=== PATIENT | female | born 1950 | race Caucasian/White ===

== ENCOUNTER 2017-05-22 13:19 | Inpatient (IN) | payer MEDICARE, MEDICAID, SELFPAY ==
[2017-05-22] VITALS (7 sets, daily range): BP systolic 113–118; BP diastolic 50–66; PULSE 64–98; RESP 16–20; TEMP 36.4–36.7; O2SAT 85–100; BMI 21.4; BMI 21.3
--- NOTE | 2017-05-22 13:52 | XR_ITS ---
XR chest 2V HISTORY: ITS.REASON: chest pain and right rib pain ORDERING PHYSICIAN: Saturnino Farmer MD PATIENT AGE: 67 years COMPARISON: 03/30/2016 FINDINGS: The heart size is unremarkable. There is diffuse coarsening of the bronchovascular markings which appears more prominent on today's exam and somewhat may be due to technique with skin fold artifact. Previously described patchy density in the right upper lobe is unchanged. There are emphysematous changes there is a small right pleural effusion. 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
--- NOTE | 2017-05-22 13:56 | XR_ITS ---
XR hip BI w PEL1V CLINICAL INDICATION: ITS.REASON: bilateral hip pain ORDERING PHYSICIAN: Saturnino Farmer MD PATIENT AGE: 67 years COMPARISON: None FINDINGS: No acute fracture or dislocation. Subcortical cystic changes are present in the right acetabular roof and there is slight decrease in joint space medially on both sides with minimal osteophyte formation along the left hip inferiorly. No fracture or dislocation. No lytic or blastic change. IMPRESSION: Mild osteoarthritis of the hips as described above
[2017-05-22 14:51] LABS: Basophils % 0.1 % (0.1-2.0); Eosinophils % 0.4 % (0.1-12.0); Hemoglobin 17.8 g/dL (12.2-16.2); Lymphocytes # 0.7 K/mm3 (0.7-4.5); Lymphocytes % 6.2 K/mm3 (10-50); Mean Corpuscular Hemoglobin 28.3 pg (27.0-31.2); Mean Corpuscular Volume 97.4 fl (81-99); Mean Platelet Volume 9.5 fl (7.4-10.4); Monocytes # 0.8 K/mm3 (0.1-1.0); Monocytes % 7.3 % (1.7-9.3); Neutrophils # 9.5 K/mm3 (1.8-7.8); Neutrophils % 86.1 % (37.0-80.0); Platelet Count 168 K/mm3 (142-424); Red Blood Count 6.28 M/mm3 (4.20-5.40); Red Cell Distribution Width 15.4 % (11.5-17.5); White Blood Count 11.1 K/mm3 (4.8-10.8)
[2017-05-22 14:52] LABS: Hematocrit 61.2 % (37.0-47.0)
[2017-05-22 14:53] LABS: MANUAL DIFFERENTIAL MANUAL DIFFERENTIAL (MANUAL DIFF)
--- NOTE | 2017-05-22 15:08 | HMH.HP ---
*Admission Date: 05/22/17 *Chief complaint: Frequent falls, diarrhea *History of present illness: 67-year-old white female with long history of emphysema, nebulizer and oxygen requiring, who is still a heavy tobacco user. She also has a long history of social anxiety disorder, delusional thinking and paranoia with some mood disorder/bipolar features. She has been extremely socially isolated since the of her , and came to my office today in extremely poor condition, dehydrated, covered in her own stool, covered in animal hair and very weak. She reports that she has fallen several times, reported right-sided rib pain, bilateral hip pain. She was found to be dehydrated. Her lungs were actually fairly clear. However she is admitted to hospital for further diagnostic testing and x-rays. [facility] History Medical History: Reports:: Diabetes Mellitus Type 2, Hyperlipidemia, Hypertension Other Medical History: Reports: Arthritis Other Surgeries: Yes: Colonoscopy - *Social History Smoking Status: Current every day smoker Tobacco Type: cigarettes Alcohol Intake: never Occupational Status: retired Housing: house Household Members: none - Psychiatric History Expresses thoughts of harming self/others: None Suicide Plan Description: No Plan Pschychiatric History:: Reports:: Anxiety, Bipolar Disorder *Family Hx:: Unable to obtain Review of Systems - Review of Systems Review of systems:: unable to obtain, other, pertinent systems reviewed and negative unless documented below - Constitutional Reports anorexia, Reports body ache(s), Reports fatigue - Eyes Reports blurry vision - ENT Reports poor balance - *Cardiovascular Reports shortness of breath, Denies chest pain at rest, Denies chest pain with activity - *Gastrointestinal Reports abdominal pain, Reports incontinent of stools, Reports loose stools - *Musculoskeletal Reports abnormal walking, Reports joint pain, Reports limited joint movement - *Neurologic Reports abnormal walking, Reports unsteadiness, Reports frequent falls Meds Home Medications Medication Instructions Recorded Confirmed Type Albuterol Sulfate [Albuterol 2.5 mg IH QID PRN 05/22/17 05/22/17 History 0.083% 2.5mg/3mL neb] Aspirin [Aspirin 81mg EC Tab] 81 mg PO DAILY 05/22/17 05/22/17 History Atorvastatin Calcium [Atorvastatin 20 mg PO HS 05/22/17 05/22/17 History 20mg Tab] Carvedilol [Carvedilol 6.25mg Tab] 6.25 mg PO BID 05/22/17 05/22/17 History Clopidogrel Bisulfate [Plavix 75mg 75 mg PO DAILY 05/22/17 05/22/17 History Tab] Ipratropium/Albuterol Sulfate 1 puff IH QID 05/22/17 05/22/17 History [Combivent Respimat Inh] Loratadine [Allergy Relief] 10 mg PO DAILY 05/22/17 05/22/17 History Medical Supply, Miscellaneous 1 each IH CONT 05/22/17 05/22/17 History [Oxygen Concentrator] Metformin HCl [Metformin 500mg 1,000 mg PO BID 05/22/17 05/22/17 History Tablet] Nitroglycerin [Nitrostat 0.4mg SL 0.4 mg SL DIRECTED 05/22/17 05/22/17 History Tablet] Potassium Chloride [Pot Chlor 20 40 meq PO DAILY 05/22/17 05/22/17 History mEq Tab] Umeclidinium [place] [Incruse 62.5 mcg IH DAILY 05/22/17 05/22/17 History Ellipta] diazePAM [diazePAM 5mg Tablet] 5 mg PO TID 05/22/17 05/22/17 History metOLazone [metOLazone 2.5mg 2.5 mg PO DAILY 05/22/17 05/22/17 History Tablet] Allergies Allergy/AdvReac Type Severity Reaction Status Date / Time No Known Allergies Allergy Unverified 03/05/17 14:26 Exam Vital signs and Labs for Last 24 Hours: Laboratory Results - last 24 hr 05/22/17 14:18: WBC 11.1 H, RBC 6.28 H, Hgb 17.8 H, Hct 61.2 H*, MCV 97.4, MCH 28.3, MCHC 29.0 L, RDW 15.4, Plt Count 168, MPV 9.5, Neut % (Auto) 86.1 H, Lymph % (Auto) 6.2 L, [place] % (Auto) 7.3, Eos % (Auto) 0.4, Baso % (Auto) 0.1, Neut # (Auto) 9.5 H, Lymph # (Auto) 0.7, [place] # (Auto) 0.8, Eos # (Auto) 0.0, Baso # (Auto) 0.0 Narrative: Patient initially examined
--- NOTE | 2017-05-22 15:11 | P.HP_ITS ---
*Admission Date: 05/22/17 *Chief complaint: Frequent falls, diarrhea *History of present illness: 67-year-old white female with long history of emphysema, nebulizer and oxygen requiring, who is still a heavy tobacco user. She also has a long history of social anxiety disorder, delusional thinking and paranoia with some mood disorder/bipolar features. She has been extremely socially isolated since the of her , and came to my office today in extremely poor condition, dehydrated, covered in her own stool, covered in animal hair and very weak. She reports that she has fallen several times, reported right-sided rib pain, bilateral hip pain. She was found to be dehydrated. Her lungs were actually fairly clear. However she is admitted to hospital for further diagnostic testing and x-rays. [facility] [place] History Medical History: Reports:: Diabetes Mellitus Type 2, Hyperlipidemia, Hypertension Other Medical History: Reports: Arthritis Other Surgeries: Yes: Colonoscopy - *Social History Smoking Status: Current every day smoker Tobacco Type: cigarettes Alcohol Intake: never Occupational Status: retired Housing: house Household Members: none - Psychiatric History Expresses thoughts of harming self/others: None Suicide Plan Description: No Plan Pschychiatric History:: Reports:: Anxiety, Bipolar Disorder *Family Hx:: Unable to obtain Review of Systems - Review of Systems Review of systems:: unable to obtain, other, pertinent systems reviewed and negative unless documented below - Constitutional Reports anorexia, Reports body ache(s), Reports fatigue - Eyes Reports blurry vision - ENT Reports poor balance - *Cardiovascular Reports shortness of breath, Denies chest pain at rest, Denies chest pain with activity - *Gastrointestinal Reports abdominal pain, Reports incontinent of stools, Reports loose stools - *Musculoskeletal Reports abnormal walking, Reports joint pain, Reports limited joint movement - *Neurologic Reports abnormal walking, Reports unsteadiness, Reports frequent falls Meds Home Medications Medication Instructions Recorded Confirmed Type Albuterol Sulfate [Albuterol 2.5 mg IH QID PRN 05/22/17 05/22/17 History 0.083% 2.5mg/3mL neb] Aspirin [Aspirin 81mg EC Tab] 81 mg PO DAILY 05/22/17 05/22/17 History Atorvastatin Calcium [Atorvastatin 20 mg PO HS 05/22/17 05/22/17 History 20mg Tab] Carvedilol [Carvedilol 6.25mg Tab] 6.25 mg PO BID 05/22/17 05/22/17 History Clopidogrel Bisulfate [Plavix 75mg 75 mg PO DAILY 05/22/17 05/22/17 History Tab] Ipratropium/Albuterol Sulfate 1 puff IH QID 05/22/17 05/22/17 History [Combivent Respimat Inh] Loratadine [Allergy Relief] 10 mg PO DAILY 05/22/17 05/22/17 History Medical Supply, Miscellaneous 1 each IH CONT 05/22/17 05/22/17 History [Oxygen Concentrator] Metformin HCl [Metformin 500mg 1,000 mg PO BID 05/22/17 05/22/17 History Tablet] Nitroglycerin [Nitrostat 0.4mg SL 0.4 mg SL DIRECTED 05/22/17 05/22/17 History Tablet] Potassium Chloride [Pot Chlor 20 40 meq PO DAILY 05/22/17 05/22/17 History mEq Tab] Umeclidinium [place] [Incruse 62.5 mcg IH DAILY 05/22/17 05/22/17 History Ellipta] diazePAM [diazePAM 5mg Tablet] 5 mg PO TID 05/22/17 05/22/17 History metOLazone [metOLazone 2.5mg 2.5 mg PO DAILY 05/22/17 05/22/17 History Tablet] Allergies
[2017-05-22 15:12] LABS: Alanine Aminotransferase 25 U/L (12-78); Albumin Level 2.3 gm/dL (3.4-5.0); Albumin/Globulin Ratio 0.5 (1.1-1.8); Alkaline Phosphatase 62 U/L (46-116); Anion Gap 9.2 mEq/L (5-15); Aspartate Amino Transferase 12 U/L (15-37); Bilirubin,Total 0.8 mg/dL (0.2-1.0); Blood Urea Nitrogen 21 mg/dL (7-18); Calcium 8.4 mg/dL (8.5-10.1); Carbon Dioxide 35 mmol/L (21.0-32.0); Chloride 104 mmol/L (98-107); Creatinine Clearance Estimated 43 mL/min (0-300); Creatinine,Serum 0.82 mg/dL (0.55-1.02); Estimated Glomerular Filt Rate 70 ml/min (>60); GFR (African American) 84 ML/MIN (>60); Globulin 4.7 gm/dl (1.3-3.2); Glucose 124 mg/dL (74-106); Magnesium 1.5 mg/dL (1.4-2.2); Potassium 4.2 mmoL/L (3.5-5.1); Sodium 144 mmol/L (136-145)
[2017-05-22 16:11] LABS: Lymphocytes % 4 % (10-50); Monocytes % 3 % (2-9); Neutrophils % 93 % (42-76); Platelet Estimate Normal; RBC Morphology Normal; Total Cells Counted 100
[2017-05-22 16:35] LABS: POC Glucose,Bedside 107 mg/dL (70-110)
--- NOTE | 2017-05-22 19:01 | PC.NURSE ---
Report to be given to Poonam Nash RN
--- NOTE | 2017-05-22 19:04 | PC.NURSE ---
Pt has breakdown (stage 2) on the medial aspect of buttocks. 3 small areas approx dime-nickel size on left buttock. 1 approx 1 1/2 inch on right buttocks w/necrotic tissue noted. Hydrocolloid dressing applied. Pt states she is incontinent of urine and bowel and had been wearing a soiled brief for approx 2 days. This is not unusual for her. Barrier cream applied as well. BLE purple in color w/+1 edema noted. Will continue to monitor.
--- NOTE | 2017-05-22 19:27 | PC.NURSE ---
During admission when asked if she has electricity and running water pt stated when I pay the bill I do . Pt ws very dirty and covered in hair. Pt was given a bath upon admission and her clothes were sent to laundry to be cleaned.
--- NOTE | 2017-05-22 21:14 | PC.NURSE ---
ON MEDICATION ADMINISTRATION, RN ATTEMPTED TO USE HOME MEDICATIONS FOR SCHEDULED 2100 MED PASS, PROTONIX AND COREG NOT FOUND IN BAG OF MEDICATIONS THAT WAS LOCATED IN LOCKED DRAWER. SCHEDULED MEDS WILL BE PULLED FROM [facility] AT THIS TIME. WILL DISUCUSS IN AM WITH DAY SHIFT RN/ FAMILY (IF PRESENT) REGARDING RETRIEVING THESE HOME MEDICATIONS IF POSSIBLE. PT'S HOME MEDS WERE PLACED BACK IN LOCKED MED DRAWER AT THIS TIME.
--- NOTE | 2017-05-22 21:54 | PC.NURSE ---
Addendum entered by Poonam Nash RN 05/23/17 00:08: STATED IT IS OKAY TO HOLD PO MEDS AT THIS TIME. NO NEW ORDERS GIVEN AT THIS TIME. Original Note: NOTIFIED AT THIS TIME OF PT INABILITY TO TAKE ORAL MEDICATIONS/LETHARGY. ON ASSESSMENT PT IS AROUSABLE TO NAME BUT IS UNABLE TO CARRY CONVERSATION WITH STAFF. PT CAN STATE NAME/ AND CURRENT LOCATION BUT UNABLE TO REPORT TIME. MIGUEL NOTED, VS WNL. ABLE TO TREE DRILLER EQUALLY BILAT BUT UNABLE TO TAKE SIP OF WATER FOLLOWING RN'S INSTRUCTION TO SIP WATER. AFTER ESTABLISHING PT'S INABILITY TO TAKE SIP OF WATER, RN DID HOLD PO MEDS AT THIS TIME. PT DID NOT RECEIVE ANY PO MEDICATIONS ON DAY SHIFT AND HAS NOT RECEIVED ANY PO MEDICATIONS THIS SHIFT. VS WERE OBTAINED PER RN FOLLOWING LETHARGY NOTED: BP: 95/43 O2SAT: 96% 2.5LNC (DID ATTEMPT TO WEAN OXYGEN TO 2LNC, O2SAT NOTED 88%, INCREASED OXYGEN BACK TO 2.5LNC) HR: 97 RR: 20 T: 98.2
--- NOTE | 2017-05-22 22:35 | PC.NURSE ---
NOTIFIED MD OF CHEST XRAY RESULTS. RUL INFILTRATE AND SMALL RIGHT EFFUSION WAS NOTED. ABX ARE NOT NOTED ON MAY. ORDER WAS REPEATED/VERIFIED WITH MD: [id number] 1 GRAM IV DAILY.
[2017-05-23] VITALS (9 sets, daily range): BP systolic 97–113; BP diastolic 38–48; PULSE 71–96; RESP 16–22; TEMP 36.5–38; O2SAT 91–95
--- NOTE | 2017-05-23 04:27 | PC.NURSE ---
NO COMPLAINTS STATED. PT REMAINED AROUSABLE TO NAME, NO CHANGE FROM PREVIOUS NOTES REGARDING LETHARGY. 2.5LNC TOLERATED WELL. DRESSINGS NOTED ON L BUTTOCK, AND R BUTTOCK NOTED CDI. BLE NOTED RED IN COLOR WITH TRACE EDEMA. TURNING AND REPOSITIONING PROVIDED Q2H. VSS. WILL CONTINUE TO MONITOR.
[2017-05-23 05:16] LABS: POC Glucose,Bedside 103 mg/dL (70-110)
[2017-05-23 05:31] LABS: Basophils % 0.1 % (0.1-2.0); Eosinophils # 0.1 K/mm3 (0.0-0.4); Eosinophils % 0.7 % (0.1-12.0); Hematocrit 50.5 % (37.0-47.0); Lymphocytes # 1.2 K/mm3 (0.7-4.5); Lymphocytes % 17.6 K/mm3 (10-50); Mean Corpuscular HGB Conc 28.8 g/dL (31.8-35.4); Mean Corpuscular Hemoglobin 27.8 pg (27.0-31.2); Mean Corpuscular Volume 96.4 fl (81-99); Mean Platelet Volume 9.6 fl (7.4-10.4); Monocytes # 0.7 K/mm3 (0.1-1.0); Monocytes % 11.3 % (1.7-9.3); Neutrophils # 4.6 K/mm3 (1.8-7.8); Neutrophils % 70.3 % (37.0-80.0); Platelet Count 142 K/mm3 (142-424); Red Blood Count 5.24 M/mm3 (4.20-5.40); Red Cell Distribution Width 15.7 % (11.5-17.5); White Blood Count 6.5 K/mm3 (4.8-10.8)
[2017-05-23 05:45] LABS: Alanine Aminotransferase 19 U/L (12-78); Albumin/Globulin Ratio 0.5 (1.1-1.8); Alkaline Phosphatase 51 U/L (46-116); Aspartate Amino Transferase 10 U/L (15-37); Bilirubin,Total 0.5 mg/dL (0.2-1.0); Blood Urea Nitrogen 15 mg/dL (7-18); Calcium 8.1 mg/dL (8.5-10.1); Carbon Dioxide 38 mmol/L (21.0-32.0); Chloride 107 mmol/L (98-107); Creatinine Clearance Estimated 48 mL/min (0-300); Creatinine,Serum 0.75 mg/dL (0.55-1.02); Estimated Glomerular Filt Rate 77 ml/min (>60); GFR (African American) 94 ML/MIN (>60); Globulin 4.2 gm/dl (1.3-3.2); Glucose 97 mg/dL (74-106); Hemoglobin 14.7 g/dL (12.2-16.2); Sodium 145 mmol/L (136-145); Total Protein,Serum 6.2 gm/dL (6.4-8.2)
[2017-05-23 05:49] LABS: Lactic Acid 0.8 mmol/L (0.4-2.0)
--- NOTE | 2017-05-23 06:26 | PC.NURSE ---
TEMP REASSESSED FOLLOWING 100.4 AXILLARY TEMP DETECTED ON 0400 VITAL SIGN ROUND. BLANKETS REMOVED, ROOM TEMP DECREASED, AND COOL WASH CLOTH APPLIED TO FOREHEAD. TEMP NOTED 98.5 AXILLARY.
[2017-05-23 06:35] LABS: POC Glucose,Bedside 79 mg/dL (70-110)
--- NOTE | 2017-05-23 07:01 | PC.NURSE ---
FSBS RESULTED 79, PROVIDED PT WITH OJ. PT ABLE TO WAKE UP ENOUGH TO DRINK OJ THIS MORNING AND TOLERATED IT WELL
--- NOTE | 2017-05-23 07:24 | HMH.PHAVTE ---
[facility] Pharmacy VTE Monitoring - Patient Demographics Admission date: 05/23/17 Report Date: 05/23/17 Time: 07:24 Allergies/Adverse Reactions: Patient Allergies No Known Allergies Allergy (Unverified 03/05/17 14:26) Height: 1.6 m Weight: 54.573 kg Patient Problems: Current Active Problems Diabetes mellitus type 2 in nonobese (Acute) COPD (chronic obstructive pulmonary disease) with emphysema (Acute) Dehydration (Acute) Diarrhea (Acute) Chest wall pain (Acute) Bilateral hip pain (Acute) - VTE Risk Labs: VTE Related Lab Results Hgb 14.7 g/dL (12.2-16.2) D 05/23/17 05:15 Hct 50.5 % (37.0-47.0) H 05/23/17 05:15 Plt Count 142 K/mm3 (142-424) 05/23/17 05:15 BUN 15 mg/dL (7-18) D 05/23/17 05:15 Creatinine 0.75 mg/dL (0.55-1.02) 05/23/17 05:15 Estimated Creat Clear 48 mL/min (0-300) 05/23/17 05:15 Was VTE Risk Assessment Performed: Yes VTE Score: 6 VTE Risk Level: Moderate Risk - Prophylaxis VTE Prophylaxis Ordered?: Yes Types of VTE Prophylaxis: TEDS Knee High Location of Applied Device: Bilateral Lower Extremeties - VTE Diagnosis Confirmed Treatment or plan recommended: Continue Current Treatment
--- NOTE | 2017-05-23 07:32 | HMH.ACPN2 ---
Internal Medicine - PN: Subj *Date: 05/23/17 *Time: 07:20 Interval history: Patient states I feel much better. Nursing staff report patient voided once in the last 12 hours, dark concentrated. 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 No further diarrhea. Alert and oriented x3. Frail, appears much older than her stated age. Rate and rhythm regular. Lung sounds with scattered wheezes. Abdomen soft and nontender Exam Vital signs and Labs for Last 24 Hours: Temp Pulse Resp BP Pulse Ox 98.5 F 91 H 20 113/48 91 L 05/23/17 06:26 05/23/17 06:33 05/23/17 05:22 05/23/17 05:22 05/23/17 06:33 Laboratory Results - last 24 hr 05/22/17 14:18: WBC 11.1 H, RBC 6.28 H, Hgb 17.8 H, Hct 61.2 H*, MCV 97.4, MCH 28.3, MCHC 29.0 L, RDW 15.4, Plt Count 168, MPV 9.5, Neut % (Auto) 86.1 H, Lymph % (Auto) 6.2 L, [place] % (Auto) 7.3, Eos % (Auto) 0.4, Baso % (Auto) 0.1, Neut # (Auto) 9.5 H, Lymph # (Auto) 0.7, [place] # (Auto) 0.8, Eos # (Auto) 0.0, Baso # (Auto) 0.0, Total Counted 100, Neutrophils % (Manual) 93 H, Lymphocytes % (Manual) 4 L, Monocytes % (Manual) 3, Platelet Estimate Normal, RBC Morphology Normal 05/22/17 14:54: Sodium 144, Potassium 4.2, Chloride 104, Carbon Dioxide 35 H, Anion Gap 9.2, BUN 21 H, Creatinine 0.82, Estimated Creat Clear 43, Estimated GFR 70, Est GFR ( Amer) 84, Glucose 124 H, Calcium 8.4 L, Magnesium 1.5, Total Bilirubin 0.8, AST 12 L, ALT 25, Alkaline Phosphatase 62, Total Protein 7.0, Albumin 2.3 L, Globulin 4.7 H, Albumin/Globulin Ratio 0.5 L 05/22/17 16:24: POC Glucose 107 05/22/17 21:31: POC Glucose 103 05/23/17 05:15: WBC 6.5 D, RBC 5.24, Hgb 14.7 D, Hct 50.5 H, MCV 96.4, MCH 27.8, MCHC 28.8 L, RDW 15.7, Plt Count 142, MPV 9.6, Neut % (Auto) 70.3, Lymph % (Auto) 17.6, [place] % (Auto) 11.3 H, Eos % (Auto) 0.7, Baso % (Auto) 0.1, Neut # (Auto) 4.6, Lymph # (Auto) 1.2, Sac # (Auto) 0.7, Eos # (Auto) 0.1, Baso # (Auto) 0.0 05/23/17 05:15: Sodium 145, Potassium 4.0, Chloride 107, Carbon Dioxide 38 H, Anion Gap 4.0 L, BUN 15 D, Creatinine 0.75, Estimated Creat Clear 48, Estimated GFR 77, Est GFR ( Amer) 94, Glucose 97 D, Calcium 8.1 L, Total Bilirubin 0.5, AST 10 L, ALT 19, Alkaline Phosphatase 51, Total Protein 6.2 L, Albumin 2.0 L D, Globulin 4.2 H, Albumin/Globulin Ratio 0.5 L 05/23/17 05:15: Lactic Acid 0.8 05/23/17 06:24: POC Glucose 79 I & O for Last 24 hours: Intake & Output 05/20/17 05/21/17 05/22/17 05/23/17 11:59 11:59 11:59 11:59 Intake Total 958 / 958 Balance 958 / 958 Weight 120 lb 5 oz Assessment and Plan (1) Diabetes mellitus type 2 in nonobese Current visit: Yes Status: Acute Category: Medical Code(s): E11.9 - Type 2 diabetes mellitus without complications (2) COPD (chronic obstructive pulmonary disease) with emphysema Current visit: Yes Status: Acute Category: Medical Code(s): J43.9 - Emphysema, unspecified (3) Dehydration Current visit: Yes Status: Acute Category: Medical Code(s): E86.0 - Dehydration (4) Diarrhea Current visit: Yes Status: Acute Category: Medical Code(s): R19.7 - Diarrhea, unspecified (5) Chest wall pain Current visit: Yes Status: Acute Category: Medical Code(s): R07.89 - Other chest pain (6) Bilateral hip pain Current visit: Yes Status: Acute Category: Medical Code(s): M25.551 - Pain in right hip; M25.552 - Pain in left hip (7) Right upper lobe pneumonia Current visit: Yes Status: Acute Qualifiers: Pneumonia type: due to unspecified organism Qualified Code(s): J18.1 - Lobar pneumonia, unspecified organism Category: Medical Code(s): J18.1 - Lobar pneumonia, unspecified organism - Assessment and plan all Dx Assessment and Plan for all problems:: Continue ceftriaxone and duonebs. Add azithromycin. Obtain sputum culture if able to produce. Continue IV fluids for hydration. Continue oxygen as patient continues to be hypoxic on RA. Saturations noted at 85% on RA. Care manag
--- NOTE | 2017-05-23 07:35 | P.PN_ITS ---
Internal Medicine - PN: Subj *Date: 05/23/17 *Time: 07:20 Interval history: Patient states I feel much better. Nursing staff report patient voided once in the last 12 hours, dark concentrated. 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 No further diarrhea. Alert and oriented x3. Frail, appears much older than her stated age. Rate and rhythm regular. Lung sounds with scattered wheezes. Abdomen soft and nontender Exam Vital signs and Labs for Last 24 Hours: Temp Pulse Resp BP Pulse Ox 98.5 F 91 H 20 113/48 91 L 05/23/17 06:26 05/23/17 06:33 05/23/17 05:22 05/23/17 05:22 05/23/17 06:33 Laboratory Results - last 24 hr 05/22/17 14:18: WBC 11.1 H, RBC 6.28 H, Hgb 17.8 H, Hct 61.2 H*, MCV 97.4, MCH 28.3, MCHC 29.0 L, RDW 15.4, Plt Count 168, MPV 9.5, Neut % (Auto) 86.1 H, Lymph % (Auto) 6.2 L, [place] % (Auto) 7.3, Eos % (Auto) 0.4, Baso % (Auto) 0.1, Neut # (Auto) 9.5 H, Lymph # (Auto) 0.7, [place] # (Auto) 0.8, Eos # (Auto) 0.0, Baso # (Auto) 0.0, Total Counted 100, Neutrophils % (Manual) 93 H, Lymphocytes % (Manual) 4 L, Monocytes % (Manual) 3, Platelet Estimate Normal, RBC Morphology Normal 05/22/17 14:54: Sodium 144, Potassium 4.2, Chloride 104, Carbon Dioxide 35 H, Anion Gap 9.2, BUN 21 H, Creatinine 0.82, Estimated Creat Clear 43, Estimated GFR 70, Est GFR ( Amer) 84, Glucose 124 H, Calcium 8.4 L, Magnesium 1.5, Total Bilirubin 0.8, AST 12 L, ALT 25, Alkaline Phosphatase 62, Total Protein 7.0, Albumin 2.3 L, Globulin 4.7 H, Albumin/Globulin Ratio 0.5 L 05/22/17 16:24: POC Glucose 107 05/22/17 21:31: POC Glucose 103 05/23/17 05:15: WBC 6.5 D, RBC 5.24, Hgb 14.7 D, Hct 50.5 H, MCV 96.4, MCH 27.8, MCHC 28.8 L, RDW 15.7, Plt Count 142, MPV 9.6, Neut % (Auto) 70.3, Lymph % (Auto) 17.6, [place] % (Auto) 11.3 H, Eos % (Auto) 0.7, Baso % (Auto) 0.1, Neut # (Auto) 4.6, Lymph # (Auto) 1.2, [place] # (Auto) 0.7, Eos # (Auto) 0.1, Baso # ( Auto) 0.0 05/23/17 05:15: Sodium 145, Potassium 4.0, Chloride 107, Carbon Dioxide 38 H, Anion Gap 4.0 L, BUN 15 D, Creatinine 0.75, Estimated Creat Clear 48, Estimated GFR 77, Est GFR ( Amer) 94, Glucose 97 D, Calcium 8.1 L, Total Bilirubin 0.5, AST 10 L, ALT 19, Alkaline Phosphatase 51, Total Protein 6.2 L, Albumin 2.0 L D, Globulin 4.2 H, Albumin/Globulin Ratio 0.5 L 05/23/17 05:15: Lactic Acid 0.8 05/23/17 06:24: POC Glucose 79 I & O for Last 24 hours: Intake & Output 05/20/17 05/21/17 05/22/17 05/23/17 11:59 11:59 11:59 11:59 Intake Total 958 / 958 Balance 958 / 958 Weight 120 lb 5 oz Assessment and Plan (1) Diabetes mellitus type 2 in nonobese Current visit: Yes Status: Acute Category: Medical Code(s): E11.9 - Type 2 diabetes mellitus without complications (2) COPD (chronic obstructive pulmonary disease) with emphysema Current visit: Yes Status: Acute Category: Medical Code(s): J43.9 - Emphysema, unspecified (3) Dehydration Current visit: Yes Status: Acute Category: Medical Code(s): E86.0 - Dehydration (4) Diarrhea Current visit: Yes Status: Acute Category: Medical Code(s): R19.7 - Diarrhea, unspecified (5) Chest wall pain Current visit: Yes Status: Acute Category: Medical Code(s): R07.89 - Other chest pain (6) Bilateral hip pain Current visit: Yes Status: Acute Category: Medical Code(s): M25.551 - Pain in right hip; M25.552 - Pain in left hip (7) Right upper lobe pneumonia Current visit: Yes Status: Acute Qualifiers: Pneumonia type: due to unspecified organism Qualified Co
--- NOTE | 2017-05-23 07:54 | PC.NURSE ---
NOTIFIED ON AM ROUNDS OF LACK OF UO UNTIL 714. PT WAS PLACED ON BED NEUMANN, URINE DARK/CLOUDY. UNABLE TO COLLECT ACCURATE MEASUREMENT R/T URINE SPILLING OUT OF BED NEUMANN.
[2017-05-23 11:21] LABS: POC Glucose,Bedside 102 mg/dL (70-110)
--- NOTE | 2017-05-23 11:25 | SW/DCPLANNER ---
Received referral regarding LTC for this patient. Patient was admitted from home alone and was not able to care for herself. Patient has on soiled briefs two + days old, sores on buttocks and covered in dog hair. I spoke with patients brother (Jus) this AM whom states that he checks on this patient daily and she does well taking care of herself. I asked brother if he thought patient would be capable of returning home alone and brother stated yes . This situation has been reported to [facility]. ID number: [id number] and case has been accepted and is currently with Bertha Queen. Spoke with patient this AM and she was very confused: smiling and talking with brother in the room when nobody was present in patients room except for myself, patient stated that Hospice was suppose to bathe her (called and spoke with Zohreh Teixeira and she is not/has not been a Hospice patient). I attempted to speak with patient regarding placement and patient was too confused....I will follow up with her this afternoon. At this time patient information has been faxed to [facility] (LTC bed available on Saturday) and [facility] (beds available). I will follow up with these facilities this afternoon as well as Bertha Queen regarding Adult Protective case.
[2017-05-23 18:00] LABS: POC Glucose,Bedside 85 mg/dL (70-110)
[2017-05-24] VITALS (9 sets, daily range): BP systolic 105–128; BP diastolic 42–62; PULSE 64–91; RESP 14–20; TEMP 36.6–37; O2SAT 89–95; BMI 20.9
[2017-05-24 01:35] LABS: POC Glucose,Bedside 86 mg/dL (70-110)
--- NOTE | 2017-05-24 03:38 | PC.NURSE ---
no changes noted from previous assessment, pt has been very lethargic this shift, awakens to voice and light stimulation, alert to person and place upon awakening, pt denies pain, scattered rhonchi noted to auscultation, pt maintaining O2 sats at or above 90 on 3L NC, bowel sounds active, no acute distress noted at this time, call light in reach, bed alarm activated, will continue to monitor.
[2017-05-24 06:59] LABS: POC Glucose,Bedside 79 mg/dL (70-110)
--- NOTE | 2017-05-24 07:59 | HMH.ACPN2 ---
Internal Medicine - PN: Subj *Date: 05/24/17 *Time: 07:59 Interval history: Overall patient feels better, more alert, talkative, eating breakfast vigorously. Exam Vital signs and Labs for Last 24 Hours: Temp Pulse Resp BP Pulse Ox 97.9 F 91 H 18 105/42 90 L 05/24/17 07:50 05/24/17 07:50 05/24/17 07:50 05/24/17 07:50 05/24/17 07:50 Laboratory Results - last 24 hr 05/23/17 11:07: POC Glucose 102 05/23/17 16:22: POC Glucose 85 05/23/17 21:06: POC Glucose 86 05/24/17 06:35: POC Glucose 79 I & O for Last 24 hours: Intake & Output 05/21/17 05/22/17 05/23/17 05/24/17 11:59 11:59 11:59 11:59 Intake Total 1198 / 1198 1147 / 1147 Output Total 100 / 100 Balance 1198 / 1198 1047 / 1047 Weight 120 lb 5 oz 118 lb 6 oz Microbiology Reports for the Last 24 Hours: Microbiology 05/23/17 05:15 Blood Blood Culture - Preliminary NO GROWTH AFTER 24 HOURS 05/23/17 05:15 Blood Blood Culture - Preliminary NO GROWTH AFTER 24 HOURS Narrative: Patient is alert, lungs have rhonchi bilaterally, heart rate regular, abdomen soft, patient eating a pretty sandwich vigorously in spite of her edentulous status. Assessment and Plan (1) Diabetes mellitus type 2 in nonobese Current visit: Yes Status: Acute Category: Medical Code(s): E11.9 - Type 2 diabetes mellitus without complications (2) COPD (chronic obstructive pulmonary disease) with emphysema Current visit: Yes Status: Acute Category: Medical Code(s): J43.9 - Emphysema, unspecified (3) Dehydration Current visit: Yes Status: Acute Category: Medical Code(s): E86.0 - Dehydration (4) Diarrhea Current visit: Yes Status: Acute Category: Medical Code(s): R19.7 - Diarrhea, unspecified (5) Chest wall pain Current visit: Yes Status: Acute Category: Medical Code(s): R07.89 - Other chest pain (6) Bilateral hip pain Current visit: Yes Status: Acute Category: Medical Code(s): M25.551 - Pain in right hip; M25.552 - Pain in left hip (7) Right upper lobe pneumonia Current visit: Yes Status: Acute Qualifiers: Pneumonia type: due to unspecified organism Qualified Code(s): J18.1 - Lobar pneumonia, unspecified organism Category: Medical Code(s): J18.1 - Lobar pneumonia, unspecified organism - Assessment and plan all Dx Assessment and Plan for all problems:: Patient is improving. Continue antibiotics. PT evaluation today. Anticipate long-term care transfer.
--- NOTE | 2017-05-24 10:22 | SW/DCPLANNER ---
Addendum entered by Shanel Benitez 05/24/17 11:46: I have spoke with Miriam from [facility] and she has stated they will be unable to meet patients needs at this time. We will plan on sending this patient to [facility] on Saturday. Original Note: Roxane (neonatal social worker) came to visit patient this AM. Roxane has stated that she is familiar with this patient and this is how she generally lives. Roxane has stated that she did agree it would be in patients best interest to discharge to a retirement facility....however Roaxne did mention that if patient decides she wants to go home then the patient is allowed to refused placement. Roxane was going to speak with patient and follow up with me this afternoon. If patient refuses placement and decides to discharge home over this weekend this will need to be reported to [facility] Intake ([phone]). I have attempted to contact [facility] to ask if patient information was reviewed and there was no answer at this time....voice message has been left. [facility] has accepted this patient but can NOT take till SUNDAY 05/28.
--- NOTE | 2017-05-24 11:41 | HMH.PTEV ---
Physical Therapy Evaluation Rehab PT IP Evaluation Start: 05/23/17 18:25 Freq: ONCE Status: Active Protocol: Document 05/24/17 11:34 PHORNE (Rec: 05/24/17 11:40 PHORNE [id number]) Subjective/History History History 67 yof adm to [facility] with weakness. Subjective Subjective Pt with no c/o this am. Rehab PT IP Eval Objective Appearance Patient Behavior Cooperative Distractible Patient Orientation Person Difficulty following instructions none Speech Pattern Clear Ambulation Patient Able to Ambulate Yes Ambulation Observation IP General Gait Pattern Observation Wide Based Gait Shuffling Step Ambulation Distance (feet) 3 Ambulation Assistive Device Rolling Walker Balance Ability to Arise Able, uses arms to help Sitting Balance Steady, safe Standing Balance Steady, wide stance Dynamic Sitting Balance Ability Fair Dynamic Standing Balance Ability Poor Transfers Bed Transfer Ability Minimal x 1 (25% assist) Chair Transfer Ability Minimal x 1 (25% assist) Sit to Stand Bed Transfer Ability Minimal x 1 (25% assist) Sit to Stand Chair Transfer Ability Minimal x 1 (25% assist) ROM All Extremities PT ROM Status WFL MMT All Extremities PT MMT WFL Rehab PT IP prob,goals,plan Problems Date of Evaluation: 05/24/17 PT IP Problems Bed Mobility Transfers Gait Rehab Potential Rehab Potential Fair Equipment Needs Assistive Devices Rolling / Wheeled Walker Plan PT Intervention Plan Bed Mobility Transfers Gait Therapeutic Exercise PT Plan Frequency BID Duration LOS Discharge Goals Bed Transfer Ability Contact Guard/Hand Hold Sit to Stand Chair Transfer Ability Contact Guard/Hand Hold Ambulation Assistive Device Rolling Walker Ambulation Distance (feet) 20 Discharge Plan PT Discharge Plan Pt is most appropriate for rehab placement once medically stable. G -code Required Yes Eval Complexity Eval Charge Codes 82017 - Moderate Complexity G Codes PT Current Status Mobility PT Current Status Modifier CJ-At least 20% but less than 40% impaired, limited or restricted PT Goal Status Mobility PT Goal Stat
[2017-05-24 16:52] LABS: POC Glucose,Bedside 118 mg/dL (70-110)
[2017-05-24 16:52] LABS: POC Glucose,Bedside 95 mg/dL (70-110)
--- NOTE | 2017-05-24 18:20 | PC.NURSE ---
Pt has tolerated well this shift, some confusion noted. Pt has had no complaints this shift, VS stable. Pt is in bed, call light within reach, will continue to monitor.
[2017-05-24 21:24] LABS: POC Glucose,Bedside 103 mg/dL (70-110)
[2017-05-25] VITALS (8 sets, daily range): BP systolic 117–141; BP diastolic 49–70; PULSE 71–90; RESP 16–22; TEMP 36.6–36.9; O2SAT 90–100
--- NOTE | 2017-05-25 02:52 | PC.NURSE ---
pt still appears very fatigued, pt alert to person and place, awakens to name, pt denies pain and SOA, expiratory wheezes noted to auscultation, pt maintaining O2 sats at or above 90 on 2 L NC, despite iv fluid replenishment pt has had minimal output this shift, bowel sounds are active, no acute distress noted at this time, bed alarm activated, call light in reach, will continue to monitor.
[2017-05-25 06:13] LABS: POC Glucose,Bedside 105 mg/dL (70-110)
--- NOTE | 2017-05-25 07:05 | PC.NURSE ---
report given to Donal Hart RN
--- NOTE | 2017-05-25 08:23 | HMH.ACPN2 ---
Internal Medicine - PN: Subj *Date: 05/25/17 *Time: 08:23 Interval history: Patient's up on the side of the bed eating breakfast. Talkative, no complaints today. States her breathing is better. Exam Vital signs and Labs for Last 24 Hours: Temp Pulse Resp BP Pulse Ox 98.3 F 90 20 141/64 93 L 05/25/17 07:45 05/25/17 07:45 05/25/17 07:45 05/25/17 07:45 05/25/17 07:45 Laboratory Results - last 24 hr 05/24/17 12:07: POC Glucose 95 05/24/17 16:36: POC Glucose 118 05/24/17 20:50: POC Glucose 103 05/25/17 06:04: POC Glucose 105 I & O for Last 24 hours: Intake & Output 05/22/17 05/23/17 05/24/17 05/25/17 11:59 11:59 11:59 11:59 Intake Total 1198 / 1198 1147 / 1147 1759 / 1759 Output Total 100 / 100 850 / 850 Balance 1198 / 1198 1047 / 1047 909 / 909 Weight 120 lb 5 oz 118 lb 6 oz 121 lb 7 oz Microbiology Reports for the Last 24 Hours: Microbiology 05/23/17 05:15 Blood Blood Culture - Preliminary NO GROWTH AFTER 48 HOURS 05/23/17 05:15 Blood Blood Culture - Preliminary NO GROWTH AFTER 48 HOURS Narrative: Patient is alert. Remains afflicted with her tangential thinking and pressured speech but is oriented ?2. Lungs have bibasilar crackles but improving. Heart rate regular. No edema. Moving all extremities well. Assessment and Plan (1) Diabetes mellitus type 2 in nonobese Current visit: Yes Status: Acute Category: Medical Code(s): E11.9 - Type 2 diabetes mellitus without complications (2) COPD (chronic obstructive pulmonary disease) with emphysema Current visit: Yes Status: Acute Category: Medical Code(s): J43.9 - Emphysema, unspecified (3) Dehydration Current visit: Yes Status: Acute Category: Medical Code(s): E86.0 - Dehydration (4) Diarrhea Current visit: Yes Status: Acute Category: Medical Code(s): R19.7 - Diarrhea, unspecified (5) Chest wall pain Current visit: Yes Status: Acute Category: Medical Code(s): R07.89 - Other chest pain (6) Bilateral hip pain Current visit: Yes Status: Acute Category: Medical Code(s): M25.551 - Pain in right hip; M25.552 - Pain in left hip (7) Right upper lobe pneumonia Current visit: Yes Status: Acute Qualifiers: Pneumonia type: due to unspecified organism Qualified Code(s): J18.1 - Lobar pneumonia, unspecified organism Category: Medical Code(s): J18.1 - Lobar pneumonia, unspecified organism - Assessment and plan all Dx Assessment and Plan for all problems:: Overall patient is improving. Continue antibiotic therapy. Plan will be to continue with skilled nursing transfer planning over the next couple of days.
[2017-05-25 17:14] LABS: POC Glucose,Bedside 88 mg/dL (70-110)
[2017-05-26] VITALS (12 sets, daily range): BP systolic 109–135; BP diastolic 43–70; PULSE 60–84; RESP 18–26; TEMP 36.3–37.2; O2SAT 88–95
[2017-05-26 01:03] LABS: POC Glucose,Bedside 89 mg/dL (70-110)
[2017-05-26 01:04] LABS: POC Glucose,Bedside 104 mg/dL (70-110)
--- NOTE | 2017-05-26 03:27 | PC.NURSE ---
no changes noted from previous assessment, pt states she feels better, SOA still noted along with weakness in the extremities, pt has been awake more this shift, pt maintaining O2 sats at or above 90 on 2L NC, when a room air O2 sat is attempted O2 sats drop to low 80s, rhonchi and expiratory wheezes noted to auscultation, bowel sounds active, no acute distress noted at this time, call light in reach, bed alarm activated, will continue to monitor.
[2017-05-26 06:47] LABS: POC Glucose,Bedside 104 mg/dL (70-110)
--- NOTE | 2017-05-26 07:14 | PC.NURSE ---
report given to A Bout
--- NOTE | 2017-05-26 08:40 | HMH.ACPN2 ---
Internal Medicine - PN: Subj *Date: 05/26/17 *Time: 08:40 Interval history: No change in patient's condition, remains stable. Exam Vital signs and Labs for Last 24 Hours: Temp Pulse Resp BP Pulse Ox 98.3 F 60 18 125/56 92 L 05/26/17 07:44 05/26/17 07:44 05/26/17 07:44 05/26/17 07:44 05/26/17 07:44 Laboratory Results - last 24 hr 05/25/17 11:22: POC Glucose 104 05/25/17 17:05: POC Glucose 88 05/25/17 21:04: POC Glucose 89 05/26/17 06:25: POC Glucose 104 I & O for Last 24 hours: Intake & Output 05/23/17 05/24/17 05/25/17 05/26/17 11:59 11:59 11:59 12:59 Intake Total 1198 / 1198 1147 / 1147 2719 / 2719 1373 / 1373 Output Total 100 / 100 850 / 850 1100 / 1100 Balance 1198 / 1198 1047 / 1047 1869 / 1869 273 / 273 Weight 120 lb 5 oz 118 lb 6 oz 121 lb 7 oz 125 lb 8 oz Microbiology Reports for the Last 24 Hours: Microbiology 05/23/17 05:15 Blood Blood Culture - Preliminary NO GROWTH AFTER 72 HOURS 05/23/17 05:15 Blood Blood Culture - Preliminary NO GROWTH AFTER 72 HOURS Narrative: Alert. Oriented ?2. Pleasant, ate 100% of her breakfast. Lungs are clear, minimal rhonchi, heart rate regular, no perfusion deficits. Assessment and Plan (1) Diabetes mellitus type 2 in nonobese Current visit: Yes Status: Acute Category: Medical Code(s): E11.9 - Type 2 diabetes mellitus without complications (2) COPD (chronic obstructive pulmonary disease) with emphysema Current visit: Yes Status: Acute Category: Medical Code(s): J43.9 - Emphysema, unspecified (3) Dehydration Current visit: Yes Status: Acute Category: Medical Code(s): E86.0 - Dehydration (4) Diarrhea Current visit: Yes Status: Acute Category: Medical Code(s): R19.7 - Diarrhea, unspecified (5) Chest wall pain Current visit: Yes Status: Acute Category: Medical Code(s): R07.89 - Other chest pain (6) Bilateral hip pain Current visit: Yes Status: Acute Category: Medical Code(s): M25.551 - Pain in right hip; M25.552 - Pain in left hip (7) Right upper lobe pneumonia Current visit: Yes Status: Acute Qualifiers: Pneumonia type: due to unspecified organism Qualified Code(s): J18.1 - Lobar pneumonia, unspecified organism Category: Medical Code(s): J18.1 - Lobar pneumonia, unspecified organism - Assessment and plan all Dx Assessment and Plan for all problems:: Improving, continue plans for long-term care placement.
[2017-05-26 11:17] LABS: POC Glucose,Bedside 84 mg/dL (70-110)
--- NOTE | 2017-05-26 13:16 | HMH.ACPN ---
Internal Medicine - PN: Subj *Date: 05/26/17 *Time: 13:16 Exam Vital signs and Labs for Last 24 Hours: Temp Pulse Resp BP Pulse Ox 98.3 F 60 20 135/70 93 L 05/26/17 11:43 05/26/17 11:43 05/26/17 11:43 05/26/17 11:43 05/26/17 11:43 Laboratory Results - last 24 hr 05/25/17 11:22: POC Glucose 104 05/25/17 17:05: POC Glucose 88 05/25/17 21:04: POC Glucose 89 05/26/17 06:25: POC Glucose 104 05/26/17 11:08: POC Glucose 84 I & O for Last 24 hours: Intake & Output 05/23/17 05/24/17 05/25/17 05/27/17 23:59 23:59 23:59 00:59 Intake Total 1261 / 1261 1913 / 1913 1473 / 1473 1373 / 1373 Output Total 100 / 100 850 / 850 1100 / 1100 Balance 1161 / 1161 1063 / 1063 373 / 373 1373 / 1373 Weight 54.573 kg 53.694 kg 55.083 kg 56.926 kg Microbiology Reports for the Last 24 Hours: Microbiology 05/23/17 05:15 Blood Blood Culture - Preliminary NO GROWTH AFTER 72 HOURS 05/23/17 05:15 Blood Blood Culture - Preliminary NO GROWTH AFTER 72 HOURS Assessment and Plan (1) Diabetes mellitus type 2 in nonobese Current visit: Yes Status: Acute Category: Medical Code(s): E11.9 - Type 2 diabetes mellitus without complications (2) COPD (chronic obstructive pulmonary disease) with emphysema Current visit: Yes Status: Acute Category: Medical Code(s): J43.9 - Emphysema, unspecified (3) Dehydration Current visit: Yes Status: Acute Category: Medical Code(s): E86.0 - Dehydration (4) Diarrhea Current visit: Yes Status: Acute Category: Medical Code(s): R19.7 - Diarrhea, unspecified (5) Chest wall pain Current visit: Yes Status: Acute Category: Medical Code(s): R07.89 - Other chest pain (6) Bilateral hip pain Current visit: Yes Status: Acute Category: Medical Code(s): M25.551 - Pain in right hip; M25.552 - Pain in left hip (7) Right upper lobe pneumonia Current visit: Yes Status: Acute Qualifiers: Pneumonia type: due to unspecified organism Qualified Code(s): J18.1 - Lobar pneumonia, unspecified organism Category: Medical Code(s): J18.1 - Lobar pneumonia, unspecified organism The patient's infection will respond to the chosen ABx?: Yes Is the patient receiving the right drug, dose, and route?: Yes Could a more targeted ABx be ordered?: No
[2017-05-26 21:08] LABS: POC Glucose,Bedside 119 mg/dL (70-110)
[2017-05-27 00:59] LABS: POC Glucose,Bedside 154 mg/dL (70-110)
[2017-05-27 03:17] VITALS: O2SAT 92
--- NOTE | 2017-05-27 03:32 | PC.NURSE ---
no changes noted from previous assessment, pt denies pain and states she feels pretty good , pt alert to person and place but having irrational thoughts and auditory hallucinations , pt has rested much of shift, expiratory wheezes noted to auscultation, pt has maintained O2 sats at or above 90 on 2 L NC, bowel sounds active, no acute distress noted at this time, bed alarm activated, call light in reach, will continue to monitor.
[2017-05-27 04:00] VITALS: BP 116/48; PULSE 76; RESP 24; TEMP 36.8; O2SAT 90
[2017-05-27 06:08] VITALS: PULSE 78; PULSE 80
--- NOTE | 2017-05-27 06:13 | PC.NURSE ---
report given to Nai Rubi RN
[2017-05-27 06:47] LABS: POC Glucose,Bedside 77 mg/dL (70-110)
--- NOTE | 2017-05-27 08:42 | HMH.ACPN2 ---
Internal Medicine - PN: Subj *Date: 05/27/17 *Time: 08:42 Interval history: No complaints, walking well. Exam Vital signs and Labs for Last 24 Hours: Temp Pulse Resp BP Pulse Ox 98.2 F 80 24 116/48 90 L 05/27/17 04:00 05/27/17 06:08 05/27/17 04:00 05/27/17 04:00 05/27/17 04:00 Laboratory Results - last 24 hr 05/26/17 11:08: POC Glucose 84 05/26/17 16:08: POC Glucose 154 05/26/17 20:37: POC Glucose 119 05/27/17 06:31: POC Glucose 77 I & O for Last 24 hours: Intake & Output 05/24/17 05/25/17 05/26/17 05/27/17 10:59 10:59 11:59 11:59 Intake Total 2688 / 2688 Output Total Balance 2688 / 2688 Weight 121 lb Microbiology Reports for the Last 24 Hours: Microbiology 05/23/17 05:15 Blood Blood Culture - Preliminary NO GROWTH AFTER 4 DAYS 05/23/17 05:15 Blood Blood Culture - Preliminary NO GROWTH AFTER 4 DAYS - Constitutional no acute distress - *Routine HEENT Exam Head: Present: normocephalic, atraumatic - *Routine Neck Exam Present: supple - Routine Chest/Breast/Axilla Exam Chest wall: Absent: tenderness - *Routine Respiratory Exam Present: rales. Absent: accessory muscle use - *Routine Abdominal Exam Present: soft Assessment and Plan (1) Diabetes mellitus type 2 in nonobese Current visit: Yes Status: Acute Category: Medical Code(s): E11.9 - Type 2 diabetes mellitus without complications (2) COPD (chronic obstructive pulmonary disease) with emphysema Current visit: Yes Status: Acute Category: Medical Code(s): J43.9 - Emphysema, unspecified (3) Dehydration Current visit: Yes Status: Acute Category: Medical Code(s): E86.0 - Dehydration (4) Diarrhea Current visit: Yes Status: Acute Category: Medical Code(s): R19.7 - Diarrhea, unspecified (5) Chest wall pain Current visit: Yes Status: Acute Category: Medical Code(s): R07.89 - Other chest pain (6) Bilateral hip pain Current visit: Yes Status: Acute Category: Medical Code(s): M25.551 - Pain in right hip; M25.552 - Pain in left hip (7) Right upper lobe pneumonia Current visit: Yes Status: Acute Qualifiers: Pneumonia type: due to unspecified organism Qualified Code(s): J18.1 - Lobar pneumonia, unspecified organism Category: Medical Code(s): J18.1 - Lobar pneumonia, unspecified organism - Assessment and plan all Dx Assessment and Plan for all problems:: No changes in plan. Tx to [place] tomorrow.
[2017-05-27 08:53] VITALS: BP 129/88; PULSE 84; RESP 16; TEMP 37; O2SAT 91
[2017-05-27 11:34] LABS: POC Glucose,Bedside 95 mg/dL (70-110)
[2017-05-27 11:38] VITALS: BP 125/52; PULSE 96; RESP 16; TEMP 37.1; O2SAT 92
--- NOTE | 2017-05-27 12:09 | HMH.DCSUM ---
General - General Admission date: 05/23/17 Discharge date: 05/27/17 HPI HPI: 67-year-old white female with long history of emphysema, nebulizer and oxygen requiring, who is still a heavy tobacco user. She also has a long history of social anxiety disorder, delusional thinking and paranoia with some mood disorder/bipolar features. She has been extremely socially isolated since the of her , and came to my office today in extremely poor condition, dehydrated, covered in her own stool, covered in animal hair and very weak. She reports that she has fallen several times, reported right-sided rib pain, bilateral hip pain. She was found to be dehydrated. Her lungs were actually fairly clear. However she is admitted to hospital for further diagnostic testing and x-rays. Hospital Course Hospital Course: Patient was admitted to hospital, intravenous antibiotics were started because of her pneumonia. She found to be slightly dehydrated, IV fluids were given. She was taken care of as far as personal hygiene issues by her nursing staff, APS was consulted because of her incredibly poor living conditions and they felt that she did not qualify for involuntary commitment. Physical therapy recommended long-term rehabilitation for her weakness and gait issues, and patient did agree to go to a retirement for rehabilitation and strengthening. She will be transferred to the [facility] today for finishing antibiotic therapy, she will be off all controlled substances, and she will need PT/OT/speech therapy evaluation and dietary evaluation for calorie counts. Noted at home she was taking diazepam but of questionable compliance, this will not be reordered at the retirement and she should not be taking this on a as needed basis. She can take Tylenol for pain as noted in the discharge medication reconciliation list. Objective Vital signs: Temp Pulse Resp BP Pulse Ox 98.7 F 96 H 16 125/52 92 L 05/27/17 11:38 05/27/17 11:38 05/27/17 11:38 05/27/17 11:38 05/27/17 11:38 Narrative: She is alert, talkative, speech is pressured and fragmented as previously noted. Patient is edentulous. No oral lesions. Lungs are clear with only minimal rhonchi, heart rate regular. Abdomen soft, she is much press cleaner than on admission but she still refuses to cut her incredibly long and potentially dangerous fingernails. She has no edema, stigmata of nicotine staining on hands and mouth noted. Results Labs on day of discharge: Labs from last 24 hours 05/27/17 05/27/17 05/26/17 11:01 06:31 20:37 POC Glucose 95 77 119 05/26/17 16:08 POC Glucose 154 Preliminary micro results at discharge 05/23/17 05:15 Blood Culture - Preliminary Blood NO GROWTH AFTER 4 DAYS 05/23/17 05:15 Blood Culture - Preliminary Blood NO GROWTH AFTER 4 DAYS DS: Diagnosis - Discharge Diagnosis (1) Diabetes mellitus type 2 in nonobese Status: Chronic (2) COPD (chronic obstructive pulmonary disease) with emphysema Status: Chronic (3) Dehydration Status: Acute (4) Diarrhea Status: Resolved (5) Chest wall pain Status: Resolved (6) Bilateral hip pain Status: Chronic (7) Right upper lobe pneumonia Status: Resolved Discharge Plan - Patient Discharge Instructions ACTIVITY: Continue current activity DIET: continue same diet Patient Instructions: Diarrhea, DI for Chronic Obstructive Pulmonary Disease, DI for Pneumonia -- Adult, DI for Diabetes Type 2 - Follow up Plan Follow up with: Kimberley Rice APRN [Nurse Practitioner] - 1 day Disposition: er [facility] Home Medications: Home Medications Medication Instructions Recorded Confirmed Type Albuterol Sulfate [Albuterol 2.5 mg IH QID PRN 05/22/17 05/22/17 History 0.083% 2.5mg/3mL neb] Aspirin [Aspirin 81mg EC Tab] 81 mg PO DAILY 05/22/17 05/22/17 History Atorvastatin Calcium [Atorvas
--- NOTE | 2017-05-27 12:12 | P.DS_ITS ---
General - General Admission date: 05/23/17 Discharge date: 05/27/17 HPI HPI: 67-year-old white female with long history of emphysema, nebulizer and oxygen requiring, who is still a heavy tobacco user. She also has a long history of social anxiety disorder, delusional thinking and paranoia with some mood disorder/bipolar features. She has been extremely socially isolated since the of her , and came to my office today in extremely poor condition, dehydrated, covered in her own stool, covered in animal hair and very weak. She reports that she has fallen several times, reported right-sided rib pain, bilateral hip pain. She was found to be dehydrated. Her lungs were actually fairly clear. However she is admitted to hospital for further diagnostic testing and x-rays. Hospital Course Hospital Course: Patient was admitted to hospital, intravenous antibiotics were started because of her pneumonia. She found to be slightly dehydrated, IV fluids were given. She was taken care of as far as personal hygiene issues by her nursing staff, APS was consulted because of her incredibly poor living conditions and they felt that she did not qualify for involuntary commitment. Physical therapy recommended long-term rehabilitation for her weakness and gait issues, and patient did agree to go to a intermediate for rehabilitation and strengthening. She will be transferred to the [facility] today for finishing antibiotic therapy, she will be off all controlled substances, and she will need PT/OT/speech therapy evaluation and dietary evaluation for calorie counts. Noted at home she was taking diazepam but of questionable compliance, this will not be reordered at the intermediate and she should not be taking this on a as needed basis. She can take Tylenol for pain as noted in the discharge medication reconciliation list. Objective Vital signs: Temp Pulse Resp BP Pulse Ox 98.7 F 96 H 16 125/52 92 L 05/27/17 11:38 05/27/17 11:38 05/27/17 11:38 05/27/17 11:38 05/27/17 11:38 Narrative: She is alert, talkative, speech is pressured and fragmented as previously noted. Patient is edentulous. No oral lesions. Lungs are clear with only minimal rhonchi, heart rate regular. Abdomen soft, she is much mold sheet cleaner than on admission but she still refuses to cut her incredibly long and potentially dangerous fingernails. She has no edema, stigmata of nicotine staining on hands and mouth noted. Results Labs on day of discharge: Labs from last 24 hours 05/27/17 05/27/17 05/26/17 11:01 06:31 20:37 POC Glucose 95 77 119 05/26/17 16:08 POC Glucose 154 Preliminary micro results at discharge 05/23/17 05:15 Blood Culture - Preliminary Blood NO GROWTH AFTER 4 DAYS 05/23/17 05:15 Blood Culture - Preliminary Blood NO GROWTH AFTER 4 DAYS DS: Diagnosis - Discharge Diagnosis (1) Diabetes mellitus type 2 in nonobese Status: Chronic (2) COPD (chronic obstructive pulmonary disease) with emphysema Status: Chronic (3) Dehydration Status: Acute (4) Diarrhea Status: Resolved (5) Chest wall pain Status: Resolved (6) Bilateral hip pain Status: Chronic (7) Right upper lobe pneumonia Status: Resolved Discharge Plan - Patient Discharge Instructions A
[2017-05-27 17:17] LABS: Adenovirus F 40/41, stool Not Detected (NotDetected); Astrovirus Not Detected (NotDetected); Campylobacter Not Detected (NotDetected); Clostridium Difficile A/B, PCR Detected (NotDetected); Cryptosporidium Not Detected (NotDetected); Cyclospora Cayetanesis Not Detected (NotDetected); Entamoeba histolytica Not Detected (NotDetected); Enteroaggregative E coli Not Detected (NotDetected); Enteropathogenic E coli Not Detected (NotDetected); Enterotoxigenic E coli Not Detected (NotDetected); Giardia lamblia Not Detected (NotDetected); Norovirus Not Detected (NotDetected); Plesimonas Shigalloides, PCR Not Detected (NotDetected); Rotavirus A Not Detected (NotDetected); Salmonella, PCR Not Detected (NotDetected); Sapovirus Not Detected (NotDetected); Shiga-like toxin E coli Not Detected (NotDetected); Shigella Enterovasive E coli Not Detected (NotDetected); Vibrio Cholerae Not Detected (NotDetected); Vibrio, PCR Not Detected (NotDetected); Yersinia Entercolitica, PCR Not Detected (NotDetected)
== END 2017-05-27 15:20 | DRG 194 ==
PROVIDERS: Admitting Provider Internal Medicine Adolescent Medicine; Family Provider Internal Medicine Adolescent Medicine; PCP Internal Medicine Adolescent Medicine; Visit Provider Internal Medicine Adolescent Medicine
DX: F31.89 Other bipolar disorder (principal); J18.9 Pneumonia, unspecified organism; J43.9 Emphysema, unspecified; Z99.81 Dependence on supplemental oxygen; E11.9 Type 2 diabetes mellitus without complications; E86.0 Dehydration; I10 Essential (primary) hypertension; Z72.0 Tobacco use; E78.5 Hyperlipidemia, unspecified; Z60.4 Social exclusion and rejection; Z91.81 History of falling; R26.89 Other abnormalities of gait and mobility; F60.0 Paranoid personality disorder; M25.552 Pain in left hip; M25.551 Pain in right hip
CPT/HCPCS: 36415; 71046; 73521; 80053; 82962; 83605; 83735; 85007; 85025; 87040; 87507; 93005; 94640; 94761; 97162; 97530; 98960; G0378; J0456

== ENCOUNTER 2017-06-18 15:48 | Observation (INO) ==
--- NOTE | 2017-06-18 16:32 | Emergency Department Note ---
ED Disposition Clinical Impression: COPD exacerbation, Cellulitis, Non-compliance, Decubitus ulcer, Pneumonia, Compensated respiratory acidosis Disposition: Still a Patient Condition on Discharge: Fair - Critical Care Critical Care Time: No Attestation: On 06/18/17, the high probability of a clinically significant, sudden or life threatening deterioration of the following system(s) required my full and direct attention, intervention and personal management. The time I documented below is in addition to time spent performing reported procedures but includes the following listed in this critical care notation. Medical Decision Making - José Miguel Inquiry Pt receiving controlled substance: No José Miguel was queried for this patient: No Vital Signs: 06/18/17 15:53 Temperature 98.4 F Temperature Source Oral Pulse Rate [Right Radial] 96 H Respiratory Rate 20 Blood Pressure [Right Arm] 114/74 Blood Pressure Mean [Right Arm] 87 Blood Pressure Source [Right Arm] Automatic Cuff Blood Pressure Position [Right Arm] Sitting 02 Sat by Pulse Oximetry 87 L Oxygen Delivery Method Nasal Cannula Oxygen Flow Rate (LPM) 3 - Lab Data Lab Results 06/18/17 16:30: WBC 4.6 L, RBC 5.12, Hgb 14.0, Hct 49.5 H, MCV 96.8, MCH 27.4, MCHC 28.3 L, RDW 17.8 H, Plt Count 189, MPV 8.3, Neut % (Auto) 64.4, Lymph % ( Auto) 24.7, Schley % (Auto) 8.3, Eos % (Auto) 2.1, Baso % (Auto) 0.5, Neut # (Auto ) 2.9, Lymph # (Auto) 1.1, Schley # (Auto) 0.4, Eos # (Auto) 0.1, Baso # (Auto) 0.0 06/18/17 16:30: Sodium 144, Potassium 4.1, Chloride 105, Carbon Dioxide 38 H, Anion Gap 5.1, BUN 14, Creatinine 0.66, Estimated Creat Clear 52, Estimated GFR 90, Est GFR ( Amer) 108, Glucose 170 H, Calcium 8.3 L, Total Bilirubin 0.5, AST 15, ALT 19, Alkaline Phosphatase 70, Total Protein 7.0, Albumin 2.2 L, Globulin 4.8 H, Albumin/Globulin Ratio 0.5 L 06/18/17 16:30: Total Creatine Kinase 40, CK-MB (CK-2) 2.6, CK-MB (CK-2) Rel Index 6.5 H, Troponin I < 0.02 06/18/17 16:30: Lactic Acid 1.7 06/18/17 17:30: Specimen Source Right radial, O2 % 38%, 3.5 lpm, ABG pH 7.36, ABG pCO2 66.0 H, ABG pO2 67.4 L, ABG HCO3 36.4 H, ABG Total CO2 38.5 H, ABG O2 Saturation 93, ABG Base Excess 11.0 H, Jaylen Test Acceptable Result diagrams: 06/18/17 16:30 06/18/17 16:30 Orders (Tests/Meds): ED MEDICATIONS Generic Name Dose Route Start Last Admin Trade Name Freq PRN Reason Stop Dose Admin Albuterol/Ipratropium 3 ml 06/18/17 17:26 Duoneb 3ml Neb 07/18/17 17:25 Q6HP PRN Shortness Of Breath Famotidine 20 mg 06/18/17 21:00 Pepcid 20mg/2ml Vial IV 07/18/17 20:59 BID TRACEY Levofloxacin/Dextrose 750 mg in 150 mls @ 100 mls/hr 06/18/17 17:30 Levofloxacin 750mg/150ml Premix IV 07/02/17 17:29 Q24H TRACEY Protocol Methylprednisolone Sodium Succinate 40 mg 06/18/17 17:30 Methylprednisolone Sod Succinate 40mg Vial IV 07/18/17 17:29 Q8H TRACEY Discontinued Medications Generic Name Dose Route Start Last Admin Trade Name Freq PRN Reason Stop Dose Admin Albuterol/Ipratropium 3 ml 06/18/17 16:26 06/18/17 17:22 Duoneb 3ml Neb 06/18/17 16:27 3 ml ONCE ONE Administration Enoxaparin Sodium 40 mg 06/18/17 17:26 Lovenox 40mg/0.4ml Syringe SQ 06/18/17 17:27 ONCE ONE Methylprednisolone Sodium Succinate 40 mg 06/18/17 17:26 Methylprednisolone Sod Succinate 40mg Vial IV 06/18/17 17:27 ONCE ONE Sodium Chloride 8 ml 06/18/17 17:26 Saline Flush 10ml Syringe IV 06/18/17 17:27 ONCE ONE ORDERS Category Date Time Status Consult to Case Management [CONS] Routine Cons 04/03/18 17:27 Active Chest XR -- portable [XR chest portable] Stat Exams 06/18/17 16:06 Taken Blood Culture Stat Micro 06/18/17 16:30 Received Sputum Culture & Gram Stain Stat Micro 06/18/17 16:37 Ordered ABG [Arterial Blood Gas] Stat RT 06/18/17 16:26 Ordered ECG Request by /Mike Stat Y 06/18/17 16:26 Ordered - ECG Data Tracing #1 Normal sinus rhythm 84/min, baseline artifac, right axis deviation right ventricular hypertrophy no acute findings ECG initial impression date: 06/18/17 ECG initial impression time: 17:28 Medical Decision Narrative: Discussed with Sapna Dennison is physician therapy administrative assistant who accepted the patient for admission. Resp/SOB HPI - General Chief Complaint: Shortness of Breath/Dyspnea Stated Complaint: Weakness Time Seen by Provider: 06/18/17 15:50 Mode of Arrival: Wheelchair Limitations: Physical Limitations Description of Symptoms (Recalled from ER Triage Doc. by RN): difficulty breathing - History of Present Illness 67 years old white female end-stage COPD on home O2 who continues to smoke. She has been without electricity and without her home oxygen since Saturday and was seen by the primary care physician who found her sats to be down to the 70s and she was told to come to the ER. Upon arrival her sats down to the 50 but the patient was alert and oriented seem to be in no acute respiratory distress. Second complaint: She has bilateral lower extremity swelling she admits for noncompliance with medications recently and she has changed physicians from Dr. Farah to Dr. Dennison. Third complain: She complained of having bed sores and bleeding from the buttocks. He denied having rectal bleeding melanotic stool, hematemesis coffee-ground damage. MD Complaint: shortness of breath Onset (ago): day(s) (2 days, she is out of electricity , needs $ 600 for electricity.) Severity: moderate Consistency/Duration: constant Relieving factors: oxygen, rest Exacerbating factors: exertion Known history of: COPD Associated symptoms: denies other symptoms Treatment prior to arrival: none - Related Data Home Medications Medication Instructions Recorded Confirmed Medical Supply, Miscellaneous 1 each IH CONT 05/22/17 05/22/17 [Oxygen Concentrator] Nitroglycerin [Nitrostat 0.4mg SL 0.4 mg SL DIRECTED 05/22/17 05/22/17 Tablet] diazepam 5 mg tablet 5 mg PO DAILY tab 06/18/17 Allergies Allergy/AdvReac Type Severity Reaction Status Date / Time No Known Allergies Allergy Verified 06/18/17 16:10 [facility] History I have reviewed the patient's past medical history: Yes Medical History: Reports:: Anxiety, Diabetes Mellitus Type 2, Hyperlipidemia, Hypertension Other Medical History: Reports: Arthritis Other Surgeries: Yes: Colonoscopy Amputation: No Fractures: No - Social History Educational Level: Completed High School Smoking Status: Current every day smoker Tobacco Type: cigarettes # Packs/Day (cigarettes): 1 Alcohol Intake: never Substance Use Type: denies use Occupational Status: retired Housing: house Household Members: none - Psychiatric History Expresses thoughts of harming self/others: None Suicide Plan Description: No Plan Pschychiatric History:: Reports:: Anxiety, Bipolar Disorder Family Hx:: Unable to obtain ROS Obtained: Yes All systems reviewed & no additional complaints Physical Exam - General General appearance: alert, in no apparent distress - Head Head exam: atraumatic, normocephalic, normal inspection - Eye Eye exam: Present: normal appearance, PERRL, EOMI - ENT ENT exam: Present: normal exam, normal oropharynx, mucous membranes moist, TM's normal bilaterally, normal external ear exam - Neck Neck exam: Present: normal inspection, full ROM, trachea midline. Absent: meningismus, lymphadenopathy - Chest Chest inspection: Present: normal inspection, symmetric chest wall rise. Absent : tenderness - Respiratory Respiratory exam: Present: normal lung sounds bilaterally, wheezes. Absent: respiratory distress - Cardiovascular Cardiovascular exam: Present: regular rate, normal rhythm. Absent: JVD - Abdominal Exam Abdominal exam: Present: soft, normal bowel sounds. Absent: distention, tenderness, guarding, rebound, rigidity - External exam: Present: normal external exam - Extremities Exam Extremities exam: Present: normal inspection, full ROM, normal capillary refill , other (Right buttock ulcer and bilateral 1+ edema and venous stasis. ). Absent: calf tenderness - Back Exam Back exam: Present: normal inspection. Absent: tenderness - Neurological Exam Neurological exam: Present: alert, oriented X3, CN II-XII intact, motor sensory deficit, reflexes normal - Psychiatric Psychiatric exam: Present: normal affect, normal mood - Skin Skin exam: Present: warm, dry, intact, normal color - Lymphatic Lymphatic Findings: no adenopathy
[2017-06-18 16:51] LABS: Basophils % 0.5 % (0.1-2.0); Eosinophils # 0.1 K/mm3 (0.0-0.4); Eosinophils % 2.1 % (0.1-12.0); Hematocrit 49.5 % (37.0-47.0); Lymphocytes # 1.1 K/mm3 (0.7-4.5); Lymphocytes % 24.7 K/mm3 (10-50); Mean Corpuscular HGB Conc 28.3 g/dL (31.8-35.4); Mean Corpuscular Hemoglobin 27.4 pg (27.0-31.2); Mean Corpuscular Volume 96.8 fl (81-99); Mean Platelet Volume 8.3 fl (7.4-10.4); Monocytes # 0.4 K/mm3 (0.1-1.0); Monocytes % 8.3 % (1.7-9.3); Neutrophils # 2.9 K/mm3 (1.8-7.8); Neutrophils % 64.4 % (37.0-80.0); Platelet Count 189 K/mm3 (142-424); Red Blood Count 5.12 M/mm3 (4.20-5.40); Red Cell Distribution Width 17.8 % (11.5-17.5); White Blood Count 4.6 K/mm3 (4.8-10.8)
[2017-06-18 17:00] LABS: Albumin Level 2.2 gm/dL (3.4-5.0); Albumin/Globulin Ratio 0.5 (1.1-1.8); Anion Gap 5.1 mEq/L (5-15); Bilirubin,Total 0.5 mg/dL (0.2-1.0); Calcium 8.3 mg/dL (8.5-10.1); Globulin 4.8 gm/dl (1.3-3.2); Potassium 4.1 mmoL/L (3.5-5.1)
[2017-06-18 17:12] LABS: Creatine Kinase 40 U/L (26-192)
[2017-06-18 17:35] LABS: ABG HCO3 36.4 mmhg (22.0-26.0); ABG Oxygen Saturation 93 % (90-100); ABG PH 7.36 mmol/L (7.35-7.45); ABG PO2 67.4 mmhg (80-100); ABG TCO2 38.5 mmhg (23-27)
[2017-06-18 17:37] LABS: Allen's Test Acceptable
--- NOTE | 2017-06-19 07:39 | Pharmacy Consult Notes ---
[facility] Pharmacy VTE Monitoring - Patient Demographics Admission date: 06/18/17 Report Date: 06/19/17 Time: 07:38 Allergies/Adverse Reactions: Patient Allergies No Known Allergies Allergy (Verified 06/18/17 16:10) Height: 1.6 m Weight: 60.81 kg Patient Problems: Current Active Problems COPD exacerbation (Acute) Cellulitis (Acute) Non-compliance (Acute) Decubitus ulcer (Acute) Pneumonia (Acute) Compensated respiratory acidosis (Acute) - VTE Risk Labs: VTE Related Lab Results Hgb 14.0 g/dL (12.2-16.2) 06/18/17 16:30 Hct 49.5 % (37.0-47.0) H 06/18/17 16:30 Plt Count 189 K/mm3 (142-424) 06/18/17 16:30 BUN 14 mg/dL (7-18) 06/18/17 16:30 Creatinine 0.66 mg/dL (0.55-1.02) 06/18/17 16:30 Estimated Creat Clear 52 mL/min (0-300) 06/18/17 16:30 Was VTE Risk Assessment Performed: Yes VTE Score: 5 VTE Risk Level: Low Risk - Prophylaxis VTE Prophylaxis Ordered?: Yes Types of VTE Prophylaxis: TEDS Knee High Location of Applied Device: Bilateral Lower Extremeties - VTE Diagnosis Confirmed Treatment or plan recommended: Continue Current Treatment
--- NOTE | 2017-06-19 09:10 | History & Physical Report ---
*Admission Date: 06/18/17 *Chief complaint: sob *History of present illness: this wf was seen at pcp office and found to have sig low o2 sat on room air and was sent to ed for eval - she has been using her meds but found to have acute excerbation of copd-pt navarro has rt foot lesion/blister which inhibit her walking and has decubitus from immobility [facility] History I have reviewed the patient's past medical history: Yes Medical History: Reports:: Anxiety, Hyperlipidemia, Hypertension Denies:: Diabetes Mellitus Type 1, Diabetes Mellitus Type 2 Other Medical History: Reports: Arthritis Other Surgeries: Yes: Colonoscopy Amputation: No Fractures: No - *Social History Educational Level: Completed High School Smoking Status: Former smoker Tobacco Type: cigarettes # Packs/Day (cigarettes): 1 Smoking End Date: 06/16/17 Alcohol Intake: never Substance Use Type: denies use Occupational Status: retired Housing: house Household Members: none - Psychiatric History Expresses thoughts of harming self/others: None Suicide Plan Description: No Plan Pschychiatric History:: Reports:: Anxiety, Bipolar Disorder *Family Hx:: Unable to obtain Review of Systems - Review of Systems Review of systems:: pertinent systems reviewed and negative unless documented below - Constitutional Reports weakness, Denies fever(s) - Eyes Denies change in vision - ENT Denies headache(s), Denies sore throat - *Cardiovascular Denies chest pain at rest - *Respiratory Reports shortness of breath, Denies cough - *Gastrointestinal Reports abdominal pain - *Genitourinary Denies blood in urine - *Musculoskeletal Reports joint pain - Integumentary/Breasts Reports other (decubitus noted x 2 appears stage 2 ) - *Neurologic Denies seizure-like activity - Psychiatric Reports anxiety Meds Home Medications Medication Instructions Recorded Confirmed Type Medical Supply, Miscellaneous 1 each IH CONT 05/22/17 06/18/17 History [Oxygen Concentrator] Nitroglycerin [Nitrostat 0.4mg SL 0.4 mg SL DIRECTED 05/22/17 06/18/17 History Tablet] diazepam 5 mg tablet 5 mg PO DAILY tab 06/18/17 06/18/17 History Allergies Allergy/AdvReac Type Severity Reaction Status Date / Time No Known Allergies Allergy Verified 06/18/17 16:10 Exam Vital signs and Labs for Last 24 Hours: Temp Pulse Resp BP Pulse Ox 98.6 F 94 H 20 113/73 90 L 06/19/17 04:00 06/19/17 07:32 06/19/17 07:32 06/19/17 07:32 06/19/17 07:32 I & O for Last 24 hours: Intake & Output 06/16/17 06/17/17 06/18/17 06/19/17 11:59 11:59 11:59 11:59 Intake Total 240 / 240 Output Total 200 / 200 Balance 40 / 40 Weight 134 lb 1 oz - Constitutional no acute distress - *Routine HEENT Exam Head: Present: normocephalic Eye: Present: EOMI, PERRL ENT: Present: mucous membranes dry - *Routine Neck Exam Present: supple. Absent: JVD - *Routine Respiratory Exam Present: decreased breath sounds, prolonged expiratory phase - *Routine Cardiovascular Exam Present: RRR, murmur, S4 - *Routine Abdominal Exam Present: soft - *Routine Extremities Exam Present: edema. Absent: calf tenderness - *Routine Skin Exam Comments: has decubitus x 2 and blister large rt heel - *Routine Neurological Exam Present: alert, oriented X3, CN II-XII intact. Absent: sensory deficit - Routine Psychiatric Exam Present: normal affect. Absent: good insight, good judgment Assessment and Plan (1) COPD exacerbation Current visit: Yes Status: Acute Category: Medical Code(s): J44.1 - Chronic obstructive pulmonary disease with (acute) exacerbation (2) Decubitus ulcer Current visit: Yes Status: Acute Qualifiers: Pressure ulcer location: sacral region Pressure ulcer stage: stage 2 Qualified Code(s): L89.152 - Pressure ulcer of sacral region, stage 2 Category: Medical Code(s): L89.90 - Pressure ulcer of unspecified site, unspecified stage (3) Blister of foot Current visit: Yes Status: Acute Qualifiers: Encounter type: initial encounter Laterality: right Qualified Code(s): S90.821A - Blister (nonthermal), right foot, initial encounter Category: Medical Code(s): S90.829A - Blister (nonthermal), unspecified foot, initial encounter (4) Immobility Current visit: Yes Status: Acute Category: Medical Code(s): Z74.09 - Other reduced mobility
--- NOTE | 2017-06-19 14:45 | Consult Report ---
*Admission Date: 06/18/17 *Chief complaint: Right plantar foot blister *History of present illness: Ms. Holland is a 67 y/o female who was seen at her PCP office and found to have sig low o2 sat on room air and was sent to ED for evaluation. - She was found to have acute excerbation of copd. The patient states she was walking barefoot on hardwood floors Saturday, and the right foot was hurting from a blister. Patient states sometimes it hurts to walk, so she "slides across the ground". The right foot blister is inhibiting her walking and she also has a decubitus from immobility. Patient denies purulence or drainage. Review of Systems - Constitutional Denies chills, Denies excessive sweating - Eyes Denies blurry vision - *Cardiovascular Denies chest pain, Denies shortness of breath, Denies lightheadedness - *Respiratory Denies cough, Denies shortness of breath - *Gastrointestinal Denies nausea, Denies vomiting - *Genitourinary Denies abnormal periods - *Musculoskeletal Reports abnormal walking - *Neurologic Reports weakness, Denies headache(s), Denies seizure-like activity [facility] History Medical History: Reports:: Anxiety, Hyperlipidemia, Hypertension Denies:: Diabetes Mellitus Type 1, Diabetes Mellitus Type 2 Other Medical History: Reports: Arthritis Other Surgeries: Yes: Colonoscopy Amputation: No Fractures: No - *Social History Educational Level: Completed High School Smoking Status: Former smoker Tobacco Type: cigarettes # Packs/Day (cigarettes): 1 Smoking End Date: 06/16/17 Alcohol Intake: never Substance Use Type: denies use Occupational Status: retired Housing: house Household Members: none - Psychiatric History Expresses thoughts of harming self/others: None Suicide Plan Description: No Plan Pschychiatric History:: Reports:: Anxiety, Bipolar Disorder *Family Hx:: Unable to obtain Meds Home Medications Medication Instructions Recorded Confirmed Type Medical Supply, Miscellaneous 1 each IH CONT 05/22/17 06/18/17 History [Oxygen Concentrator] Nitroglycerin [Nitrostat 0.4mg SL 0.4 mg SL Q5MINP PRN 05/22/17 06/19/17 History Tablet] diazepam 5 mg tablet 5 mg PO DAILY tab 06/18/17 06/18/17 History Allergies Allergy/AdvReac Type Severity Reaction Status Date / Time No Known Allergies Allergy Verified 06/18/17 16:10 Exam Vital signs and Labs for Last 24 Hours: Temp Pulse Resp BP Pulse Ox 98.6 F 84 20 113/73 90 L 06/19/17 04:00 06/19/17 11:41 06/19/17 07:32 06/19/17 07:32 06/19/17 07:32 I & O for Last 24 hours: Intake & Output 06/17/17 06/18/17 06/19/17 06/20/17 11:59 11:59 11:59 11:59 Intake Total 240 / 240 480 / 480 Output Total 650 / 650 Balance -410 / -410 480 / 480 Weight 134 lb 1 oz - *Routine HEENT Exam Head: Present: normocephalic - *Routine Neck Exam Present: supple. Absent: JVD - *Routine Respiratory Exam Absent: respiratory distress - *Routine Cardiovascular Exam Present: RRR - *Routine Abdominal Exam Absent: guarding - *Routine Rectal Exam Patient deferred: visual exam - *Routine Exam Patient deferred: external exam - *Routine Extremities Exam Present: pulses intact. Absent: calf tenderness, extremity cold to touch, amputation - *Routine Skin Exam Present: intact, erythema - *Routine Neurological Exam Present: alert, oriented X3 - Detailed Lower Extremity Exam Foot/Toes: Left normal inspection, Right erythema (right plantar foot around blister), Right swelling (right foot blister), Right tenderness (right foot blister), Right wound (1.1 x 1.3cm superficial - right plantar, under blister), Bilateral full ROM Comments: Palpable pedal pulses bilaterally. Capillary fill time less than 4 seconds. Skin temperature warm. No calf or thigh pain noted bilaterally. No previous amputations noted. No significant musculoskeletal deformities. Semi-reducible PIPJ contractures noted 2 through 5 bilaterally and mild hallux abductovalgus noted. All nonpainful range of motion with no crepitus noted. Toenails 1-10 very elongated, curling over and digging into skin. Right plantar foot just underneath the fifth MPJ there is a blister. The roof of the blister was completely intact. There was mild localized erythema around the blister. Utilizing a 15 blade a stab incision was made in the blister. Serosanguineous fluid noted. Culture obtained. Blister drained. 15' blade was then used at this point to deroofed the blister to check for underlying ulceration. Underneath the blister skin was intact. There was one area centrally measuring 1.11.3 cm that was slightly darker red. No purulence or malodor. No definitive wound that probed deeply. No tracking or tunneling noted. No ascending cellulitis or lymphangitis noted. Nonpalpable popliteal lymph nodes. Results - Labs Result Diagrams: 06/18/17 16:30 06/18/17 16:30 Labs: All other labs normal. Assessment and Plan (1) COPD exacerbation Current visit: Yes Status: Acute Category: Medical Code(s): J44.1 - Chronic obstructive pulmonary disease with (acute) exacerbation (2) Decubitus ulcer Current visit: Yes Status: Acute Qualifiers: Pressure ulcer location: sacral region Pressure ulcer stage: stage 2 Qualified Code(s): L89.152 - Pressure ulcer of sacral region, stage 2 Category: Medical Code(s): L89.90 - Pressure ulcer of unspecified site, unspecified stage (3) Blister of foot Start date: 06/16/17 Start time: 08:00 Current visit: Yes Status: Acute Qualifiers: Encounter type: initial encounter Laterality: right Qualified Code(s): S90.821A - Blister (nonthermal), right foot, initial encounter Category: Medical Code(s): S90.829A - Blister (nonthermal), unspecified foot, initial encounter Oncyhogryphosis: 1. Utilizing nail nippers toenails 1-10 debrided/trimmed. 2. Patient tolerated it well. 3. Educated the patient on routine foot care. I explained that she should not let the nails get this along with the curved into the skin because that could cause a wound. Verbalized understanding Right plantar foot blister: Blister noted sub right 5th MPJ, extending to 3rd met. The roof of the blister was completely intact. There was mild localized erythema around the blister. Betadine was used to clean the blister and surrounding skin. Utilizing a 15 blade a stab incision was made in the blister. Serosanguineous fluid noted. Culture obtained. Blister drained. 15' blade was then used at this point to deroofed the blister to check for underlying ulceration. Underneath the blister skin was intact. There was one area centrally measuring 1.11.3 cm that was slightly darker red. No purulence or malodor. No definitive wound that probed deeply. No tracking or tunneling noted. No ascending cellulitis or lymphangitis noted. Nonpalpable popliteal lymph nodes. Betadine dry sterile dressing applied to right foot. 1. No signs of definitive wound or deep infection 2. Wound culture 3. Recommend daily dressing changes with betadine to keep area dry and clean 4. May FWB to left foot, PWB to right heel only as tolerated 5. Follow up with wound care as scheduled 6. Follow up with Podiatry in 2-3 weeks 7. Okay to be discharged to SNF (4) Immobility Current visit: Yes Status: Acute Category: Medical Code(s): Z74.09 - Other reduced mobility
[2017-06-19 15:04] LABS: Microscopic, Urine URINE MICROSCOPIC (MICROSCOPIC)
[2017-06-19 15:08] LABS: Appearance,Urine CLEAR (Clear); Bilirubin,Urine Negative (Negative); Blood, Urine Negative (Negative); Color,Urine YELLOW (Yellow); Glucose,Urine (UA) Negative (Negative); Ketones,Urine Negative (Negative); Leukocyte Esterase,Urine Negative (Negative); Protein,Urine Negative (Negative); Specific Gravity, Urine 1.015 (1.005-1.030); Urobilinogen,Urine 0.2 EU/dl (0.2)
[2017-06-19 15:28] LABS: Bacteria,Urine 1+ /lpf; Hyaline Casts,Urine Occasional #/lpf (0); RBC,Urine Occasional #/hpf (0-3); Squamous Epithelial Cell,Urine 20-50 #/hpf (0-5)
[2017-06-20 08:01] VITALS: BP 159/69
--- NOTE | 2017-06-20 08:23 | Discharge Summary ---
General - General Admission date: 06/18/17 Discharge date: 06/20/17 HPI HPI: Ms. Holland is a 67 y/o female who was seen at her PCP office and found to have sig low o2 sat on room air and was sent to ED for evaluation. - She was found to have acute excerbation of copd. The patient states she was walking barefoot on hardwood floors Saturday, and the right foot was hurting from a blister. Patient states sometimes it hurts to walk, so she "slides across the ground". The right foot blister is inhibiting her walking and she also has a decubitus from immobility. Patient denies purulence or drainage. Hospital Course Hospital Course: podiatry consult: Oncyhogryphosis: 1. Utilizing nail nippers toenails 1-10 debrided/trimmed. 2. Patient tolerated it well. 3. Educated the patient on routine foot care. I explained that she should not let the nails get this along with the curved into the skin because that could cause a wound. Verbalized understanding Right plantar foot blister: Blister noted sub right 5th MPJ, extending to 3rd met. The roof of the blister was completely intact. There was mild localized erythema around the blister. Betadine was used to clean the blister and surrounding skin. Utilizing a 15 blade a stab incision was made in the blister. Serosanguineous fluid noted. Culture obtained. Blister drained. 15' blade was then used at this point to deroofed the blister to check for underlying ulceration. Underneath the blister skin was intact. There was one area centrally measuring 1.11.3 cm that was slightly darker red. No purulence or malodor. No definitive wound that probed deeply. No tracking or tunneling noted. No ascending cellulitis or lymphangitis noted. Nonpalpable popliteal lymph nodes. Betadine dry sterile dressing applied to right foot. 1. No signs of definitive wound or deep infection 2. Wound culture 3. Recommend daily dressing changes with betadine to keep area dry and clean 4. May FWB to left foot, PWB to right heel only as tolerated 5. Follow up with wound care as scheduled 6. Follow up with Podiatry in 2-3 weeks 7. Okay to be discharged to SNF chest x ray:IMPRESSION: Chronic interstitial changes however with no comparisons small bilateral pleural effusions I suspect possibility of mild chronic failure and suggest clinical correlation and follow-up films as clinically indicated. Patient will be transferred to [facility] today, patient uses O2 at home prn, we will have wound MD evaluate and treat foot ulcer. Will continue Zithromax and prednisone with a slow taper. Objective Vital signs: Temp Pulse Resp BP Pulse Ox 98.9 F 102 H 22 159/69 90 L 06/20/17 08:00 06/20/17 08:00 06/20/17 08:00 06/20/17 08:00 06/20/17 08:00 no acute distress - *Routine HEENT Exam Head: Present: normocephalic Eye: Present: PERRL ENT: Present: mucous membranes moist - *Routine Neck Exam Present: supple, full ROM - *Routine Respiratory Exam Present: wheezes - *Routine Cardiovascular Exam Present: RRR - *Routine Abdominal Exam Present: soft, normoactive bowel sounds - *Routine Skin Exam Comments: Dressing to right foot - *Routine Neurological Exam Present: alert, oriented X3, CN II-XII intact - Routine Psychiatric Exam Present: normal affect, normal thought process Results Labs on day of discharge: Labs from last 24 hours 06/19/17 13:30 Urine Color Yellow Urine Appearance Clear Urine pH 8.0 Ur Specific [place] 1.015 Urine Protein Negative Urine Glucose (UA) Negative Urine Ketones Negative Urine Blood Negative Urine Nitrate Negative Urine Bilirubin Negative Urine Urobilinogen 0.2 Ur Leukocyte Esterase Negative Urine RBC Occasional Urine WBC 5-10 Ur Squamous Epith Cells 20-50 Urine Bacteria 1+ Hyaline Casts Occasional Discharge Plan - Patient Discharge Instructions ACTIVITY: Continue current activity DIET: continue same diet - Follow up Plan Follow up with: Tracey Duran APRN [Advanced Practice Nurse] - 1 week Disposition: Home, Self-Fpc Medications: Home Medications Medication Instructions Recorded Confirmed Type Medical Supply, Miscellaneous 1 each IH CONT 05/22/17 06/18/17 History [Oxygen Concentrator] Nitroglycerin [Nitrostat 0.4mg SL 0.4 mg SL Q5MINP PRN 05/22/17 06/19/17 History Tablet] Prescriptions/Medication Reconciliation: New Azithromycin [Zithromax 250mg tab] 250 mg PO DIRECTED #6 tab Isosorbide Mononitrate 10 mg PO DAILY 30 Days #30 tab predniSONE [Prednisone 20mg Tab] 10 mg PO DAILY #15 tab diazePAM [Valium] 5 mg PO DAILY 30 Days #30 tab Continue Medical Supply, Miscellaneous [Oxygen Concentrator] 1 each IH CONT Nitroglycerin [Nitrostat 0.4mg SL Tablet] 0.4 mg SL Q5MINP PRN PRN Reason: Chest Pain
--- NOTE | 2017-06-20 12:08 | Cardiology Report ---
PROCEDURE: 2-D M-mode and color Doppler study INDICATIONS FOR THE TEST: Chest pain COPDx Heart Murmur Tobacco Smoking Palpitations Fatigue Syncope Edema Hypertension Diabetes Mellitus Rheumatic Fever SOB VILLANUEVA Obesity Hyperlipidemia Family History HD Additional History Comments: Moderate-severe PHTN, right ventricular enlargement. PATIENT INFORMATION HEIGHT: 5'3'' WEIGHT: 134 GENDER: Female B/P: 114/74 2-D/M-MODE INTERPRETATION: 2-D MEASUREMENTS OBSERVED VALUES IN CMS Right Ventricular Dimension (RVDd) 3.5 Interventricular Septum (Thickness)(IVsd) 0.8 Left Ventricular Internal Dimensions(LVIDd) 3.9 Left Ventricular Posterior Wall (Thickness)(LVPWd) 1.2 Aortic Root 2.3 Aortic Cusp Separation 1.2 Left Atrial Dimensions (LAD) 3.4 2D 1. Left atrium is qualitatively mildly enlarged, left ventricle is normal size, there is no concentric left ventricular hypertrophy, visually estimated ejection fraction 55% with no obvious regional wall motion abnormality, there is abnormal septal motion. 2. The right atrium is mildly enlarged, right ventricle is markedly dilated, with moderate reduction in right ventricular systolic function. 3. The aortic valve is minimally thickened and fibrosed. 4. The mitral and tricuspid valve leaflets are minimally thickened. 5. The pulmonic valve is poorly visualized. 6. There is trivial pericardial effusion noted. DOPPLER INTERROGATION: Doppler interrogation of the aortic, mitral and tricuspid valvular presence of mild mitral and moderate tricuspid regurgitation, calculated right ventricular systolic pressure is 54 mmHg consistent with moderate pulmonary hypertension, grade 1 diastolic dysfunction seen with tissue Doppler evidence of raised left atrial pressure. Inferior vena cava is moderately enlarged without significant inspiratory collapse. CONCLUSION: 1. Left atrium is qualitatively mildly enlarged, the left ventricle is normal size, visually estimated ejection fraction 55% with no obvious regional wall motion abnormality, grade 1 diastolic dysfunction seen with tissue Doppler evidence of raised left atrial pressure. 2. Markedly enlarged right ventricle is moderately reduction in right ventricular systolic function. 3. Mild mitral and moderate tricuspid regurgitation, calculated right ventricular systolic pressure is 54 mmHg consistent with moderate pulmonary hypertension, inferior vena cava is dilated without significant inspiratory collapse. 4. Trivial pericardial effusion noted.
== END 2017-06-20 10:48 ==
LOC: 2ND 15:48 → ER 15:48 → 2ND 19:21
PROVIDERS: ADMIT Emergency Medicine; ATTEND Emergency Medicine

== ENCOUNTER 2017-07-09 12:55 | Inpatient (IN) ==
[2017-07-09 12:58] LABS: ABG Base Excess 14.3 mmol/L (-2.4-2.3); ABG HCO3 40.2 mmhg (22.0-26.0); ABG Oxygen Saturation 86 % (90-100); ABG PH 7.33 mmol/L (7.35-7.45); ABG TCO2 42.6 mmhg (23-27)
[2017-07-09 13:00] LABS: Allen's Test Acceptable; Oxygen RA %
--- NOTE | 2017-07-09 13:12 | Emergency Department Note ---
ED Disposition Clinical Impression: Acute respiratory failure with hypoxia and hypercarbia, Acute respiratory acidosis, CO2 narcosis Pneumonia Qualifiers: Pneumonia type: due to unspecified organism Laterality: unspecified laterality Lung location: unspecified part of lung Qualified Code(s): J18.9 - Pneumonia, unspecified organism Altered mental status Qualifiers: Altered mental status type: unspecified Qualified Code(s): R41.82 - Altered mental status, unspecified Disposition: Admitted As Inpatient Condition on Discharge: Fair Time of Disposition: 14:17 - Critical Care Critical Care Time: Yes Attestation: On , the high probability of a clinically significant, sudden or life threatening deterioration of the following system(s) required my full and direct attention, intervention and personal management. The time I documented below is in addition to time spent performing reported procedures but includes the following listed in this critical care notation. Total Critical Care Time: 75 Vital system(s) involved:: Circulatory Failure, Central Nervous System, Metabolic Failure My critical care processes included: Assessment & monitoring of V/S, Initial and Re-exams, Data Review/Interpretation, Coordinating Care, Medication Orders and management, Documentation Medical Decision Making - Medical Records Medical records reviewed: Yes: I reviewed the patient's medical records. - José Miguel Inquiry Pt receiving controlled substance: No Vital Signs: 07/09/17 13:02 Temperature 98 F Temperature Source Oral Pulse Rate [Radial] 98 H Respiratory Rate 24 Blood Pressure [Right Arm] 117/47 Blood Pressure Mean [Right Arm] 70 Blood Pressure Source [Right Arm] Automatic Cuff Blood Pressure Position [Right Arm] Sitting 02 Sat by Pulse Oximetry 74 L Oxygen Delivery Method Nasal Cannula Oxygen Flow Rate (LPM) 3 - Lab Data Lab results reviewed: Yes: I reviewed the patient's lab results. Lab Results 07/09/17 13:05: WBC 5.4, RBC 4.89, Hgb 13.7, Hct 47.7 H, MCV 97.4, MCH 27.9, MCHC 28.7 L, RDW 18.4 H, Plt Count 175, MPV 7.7, Neut % (Auto) 82.9 H, Lymph % ( Auto) 11.2, [place] % (Auto) 3.9, Eos % (Auto) 1.6, Baso % (Auto) 0.4, Neut # (Auto ) 4.5, Lymph # (Auto) 0.6 L, [place] # (Auto) 0.2, Eos # (Auto) 0.1, Baso # (Auto) 0.0 07/09/17 13:05: Troponin I < 0.02 07/09/17 13:05: B-Natriuretic Peptide 910 H 07/09/17 13:05: Lactic Acid 0.7 Result diagrams: 07/09/17 13:05 Orders (Tests/Meds): ED MEDICATIONS Generic Name Dose Route Start Last Admin Trade Name Freq PRN Reason Stop Dose Admin Azithromycin 500 mg/ Sodium 250 mls @ 250 mls/hr 07/09/17 14:30 Chloride IV 07/23/17 14:29 Q24H TRACEY Protocol Ceftriaxone Sodium 1 gm/ 50 mls @ 100 mls/hr 07/09/17 14:30 Sodium Chloride IV 07/23/17 14:29 Q24H TRACEY Protocol Discontinued Medications Generic Name Dose Route Start Last Admin Trade Name Freq PRN Reason Stop Dose Admin Aspirin 324 mg 07/09/17 13:08 07/09/17 13:15 Aspirin 81mg Chewable Tablet PO 07/09/17 13:09 324 mg ONCE ONE Administration Methylprednisolone Sodium Succinate 125 mg 07/09/17 14:23 Solu-Medrol 125mg/2ml Vial IV 07/09/17 14:24 ONCE ONE ORDERS Category Date Time Status XR chest portable Stat Exams 07/09/17 13:08 Taken Troponin I Stat Lab 07/09/17 13:05 Ordered Blood Culture Stat Micro 07/09/17 13:05 Received ABG [Arterial Blood Gas] Stat RT 07/09/17 14:13 Ordered ABG [Arterial Blood Gas] Stat RT 07/09/17 14:21 Ordered Arterial Blood Gas Stat RT 07/09/17 13:08 Ordered ECG Request by /Mike Stat Y 07/09/17 13:08 Ordered - Radiology Data #1 Image(s): Chest Image Reviewed: Yes I reviewed the patient's radiology results, Yes I reviewed the patient's radiology image, Yes I discussed the image results w/the radiologist Preliminary Findings: Abnormal Bilateral lower lungs infiltrate consistent with pneumonia - ECG Data Tracing #1 I reviewed this ECG and interpreted as documented below: Heart rate 88, no acute ischemic changes ECG normal with no acute: arrhythmias, ischemia, conduction abnormalities, chamber hypertrophy Normal Sinus Rhythm: Yes - Physician Consults Physician Consulted: Dr Dennison Time: 14:25 Reason -: Admission, Pt condition Comment/Response: Advised of patient's presentation, findings, ABG results, x- ray findings per Dr. Valentin, plan of treatment, Dr. Dennison agreeable with hospitalization. - Reevaluation(s) Time: 14:31 Reevaluation #1: No significant change, patient still confused and lethargic Chest Pain HPI - General Chief Complaint: Chest Pain Stated Complaint: chest pain sob Time Seen by Provider: 07/09/17 13:10 Mode of Arrival: Wheelchair Source of Information: Patient Limitations: No Limitations Description of Symptoms (Recalled from ER Triage Doc. by RN): pt sent from dr gilbert office for c/o chest pain and SOB with low o2 sats of 80 on 02 - History of Present Illness HPI narrative: Patient is a 67-year-old female patient brought by Dr. Powers and staff to the emergency room for evaluation of lethargy, confusion low pulse ox readings and chest pain for the past 2-3 days. Patient is a new patient to Dr. Powers. She has been using as needed oxygen, however over the past 2-3 days the patient has been constantly on oxygen. Her family member advised that she has a right foot ulcer for which she has been seeing Dr. Mendez, and she also has been treated for diabetes for the past 4 years, with metformin. This recently came under debate, and the metformin dose was adjusted down, per family member. Pox on RA on arrival is 86%. MD complaint: other (Shortness of breath, lethargy, confusion) Onset (ago): day(s) (2) Duration: intermittent Activity at onset: during exertion Pain location: substernal Severity: moderate Severity scale (1-10): 2 Quality: tightness Pain radiation: none Relieving factors: rest Exacerbating factors: nothing Treatments prior to or on arrival for Cardiac Chest Pain: none - INDU Score Non-Stemi Age of patient: 65 yrs or more Number of risk factors for CAD: Presence of less than 3 Prior coronary artery stenosis(seen in coronary angiography): Less than 50% ST-Segment deviation on ECG (more than 1 min): Absent Prior aspirin intake: No ASA in the last 7 days Severe anginal chest pain: No or one episode in last 24 hours Elevated cardiac markers(CK-MB or troponin): Absent Non-Stemi Risk Score: 1 Risk Stratification: 0-2= Low Risk Patients - Related Data Home Medications Medication Instructions Recorded Confirmed Medical Supply, Miscellaneous 1 each IH CONT 05/22/17 06/18/17 [Oxygen Concentrator] Nitroglycerin [Nitrostat 0.4mg SL 0.4 mg SL Q5MINP PRN 05/22/17 06/19/17 Tablet] Previous Rx's Medication Instructions Recorded Azithromycin [Zithromax 250mg 250 mg PO DIRECTED #6 tab 06/20/17 tab] Isosorbide Mononitrate 10 mg PO DAILY 30 Days #30 tab 06/20/17 diazePAM [Valium] 5 mg PO DAILY 30 Days #30 tab 06/20/17 predniSONE [Prednisone 20mg 10 mg PO DAILY #15 tab 06/20/17 Tab] Allergies Allergy/AdvReac Type Severity Reaction Status Date / Time No Known Allergies Allergy Verified 06/18/17 16:10 [facility] History I have reviewed the patient's past medical history: Yes Medical History: Reports:: Anxiety, Chronic Obstructive Pulmonary Disease (COPD) , Hyperlipidemia, Hypertension Denies:: Diabetes Mellitus Type 1, Diabetes Mellitus Type 2 Other Medical History: Reports: Arthritis Other Surgeries: Yes: Colonoscopy Amputation: No Fractures: No - Social History Smoking Status: Former smoker Tobacco Type: cigarettes # Packs/Day (cigarettes): 1 Alcohol Intake: never Alcohol Intake Frequency:: other Substance Use Type: denies use Occupational Status: retired Housing: house Household Members: none - Psychiatric History Pschychiatric History:: Reports:: Anxiety, Bipolar Disorder Family Hx:: Unable to obtain ROS Obtained: Yes All systems reviewed & no additional complaints, Yes Systems reviewed as appropriate & no additional complaints - Cardiovascular Cardiovascular: Reports system reviewed and no additional complaints, except as docu, Reports as per HPI, Reports chest pain - Respiratory Respiratory: Yes system reviewed and no additional complaints, except as docu, Yes as per HPI, Yes cough Physical Exam - General General appearance: alert, in distress (moderate) - Head Head exam: atraumatic, normocephalic, normal inspection - Eye Eye exam: Present: normal appearance, PERRL, EOMI, other (normal fundi) - ENT ENT exam: Present: normal exam, normal oropharynx, mucous membranes moist, TM's normal bilaterally, normal external ear exam - Neck Neck exam: Present: normal inspection, full ROM, trachea midline. Absent: meningismus, lymphadenopathy - Chest Chest inspection: Present: normal inspection, symmetric chest wall rise. Absent : tenderness - Respiratory Respiratory exam: Present: respiratory distress (mild), wheezes - Cardiovascular Cardiovascular exam: Present: regular rate, normal rhythm. Absent: JVD - Abdominal Exam Abdominal exam: Present: soft, normal bowel sounds. Absent: distention, tenderness, guarding - Extremities Exam Extremities exam: Present: normal inspection, full ROM, normal capillary refill. Absent: calf tenderness - Back Exam Back exam: Present: normal inspection. Absent: tenderness - Neurological Exam Neurological exam: Present: alert, other (Lethargic, confused) - Psychiatric Psychiatric exam: Present: depressed, flat affect - Skin Skin exam: Present: warm, dry, intact, normal color - Lymphatic Lymphatic Findings: no adenopathy
[2017-07-09 13:40] LABS: Basophils % 0.4 % (0.1-2.0); Eosinophils # 0.1 K/mm3 (0.0-0.4); Eosinophils % 1.6 % (0.1-12.0); Hematocrit 47.7 % (37.0-47.0); Hemoglobin 13.7 g/dL (12.2-16.2); Lymphocytes # 0.6 K/mm3 (0.7-4.5); Lymphocytes % 11.2 K/mm3 (10-50); Mean Corpuscular HGB Conc 28.7 g/dL (31.8-35.4); Mean Corpuscular Hemoglobin 27.9 pg (27.0-31.2); Mean Corpuscular Volume 97.4 fl (81-99); Mean Platelet Volume 7.7 fl (7.4-10.4); Monocytes # 0.2 K/mm3 (0.1-1.0); Monocytes % 3.9 % (1.7-9.3); Neutrophils # 4.5 K/mm3 (1.8-7.8); Neutrophils % 82.9 % (37.0-80.0); Platelet Count 175 K/mm3 (142-424); Red Blood Count 4.89 M/mm3 (4.20-5.40); Red Cell Distribution Width 18.4 % (11.5-17.5); White Blood Count 5.4 K/mm3 (4.8-10.8)
[2017-07-09 14:40] LABS: ABG PH 7.33 mmol/L (7.35-7.45)
[2017-07-09 14:41] LABS: ABG Base Excess 14.3 mmol/L (-2.4-2.3); ABG HCO3 40.2 mmhg (22.0-26.0); ABG Oxygen Saturation 86 % (90-100); ABG TCO2 42.6 mmhg (23-27)
[2017-07-09 14:42] LABS: Allen's Test Non Applicable
[2017-07-09 14:47] LABS: ABG HCO3 42.8 mmhg (22.0-26.0); ABG PCO2 87.8 mmhg (35.0-45.0); ABG PH 7.31 mmol/L (7.35-7.45); ABG PO2 69.8 mmhg (80-100); ABG TCO2 45.5 mmhg (23-27)
[2017-07-09 14:48] LABS: ABG Base Excess 16.5 mmol/L (-2.4-2.3); ABG Oxygen Saturation 92 % (90-100); Allen's Test Patient Unable; Oxygen 40% BIPAP %
--- NOTE | 2017-07-10 08:02 | Pharmacy Consult Notes ---
[facility] Pharmacy VTE Monitoring - Patient Demographics Admission date: 07/09/17 Report Date: 07/10/17 Time: 08:02 Allergies/Adverse Reactions: Patient Allergies No Known Allergies Allergy (Verified 06/18/17 16:10) Height: 1.55 m Weight: 60.498 kg Patient Problems: Current Active Problems Pneumonia (Acute) Altered mental status (Acute) Acute respiratory failure with hypoxia and hypercarbia (Acute) Acute respiratory acidosis (Acute) CO2 narcosis (Acute) - VTE Risk Labs: VTE Related Lab Results Hgb 13.7 g/dL (12.2-16.2) 07/09/17 13:05 Hct 47.7 % (37.0-47.0) H 07/09/17 13:05 Plt Count 175 K/mm3 (142-424) 07/09/17 13:05 Was VTE Risk Assessment Performed: Yes VTE Risk Level: Low Risk Clinical Trial Participant: No - Prophylaxis VTE Prophylaxis Ordered?: Yes Types of VTE Prophylaxis: TEDS Knee High
--- NOTE | 2017-07-10 12:15 | History & Physical Report ---
*Admission Date: 07/09/17 *Chief complaint: sob *History of present illness: this wf was seen in the edatient is a 67-year-old female patient brought by Dr. Powers and staff to the emergency room for evaluation of lethargy, confusion low pulse ox readings and chest pain for the past 2-3 days. Patient is a new patient to Dr. Powers. She has been using as needed oxygen , however over the past 2-3 days the patient has been constantly on oxygen. Her family member advised that she has a right foot ulcer for which she has been seeing Dr. Mendez, and she also has been treated for diabetes for the past 4 years, with metformin. This recently came under debate, and the metformin dose was adjusted down, per family member. Pox on RA on arrival is 86%.pt was found to have a cap and was admitted [facility] History I have reviewed the patient's past medical history: Yes Medical History: Reports:: Anxiety, Chronic Obstructive Pulmonary Disease (COPD) , Diabetes Mellitus Type 2, Hyperlipidemia, Hypertension Denies:: Cancer, Diabetes Mellitus Type 1, MRSA Other Medical History: Reports: Arthritis Other Surgeries: Yes: Colonoscopy Amputation: No Fractures: No - *Social History Educational Level: Attended High School Smoking Status: Former smoker Tobacco Type: cigarettes # Packs/Day (cigarettes): 1 #Yrs smoked (if former smoker): 20 Smoking End Date: 30 days ago Alcohol Intake: never Alcohol Intake Frequency:: other Substance Use Type: denies use Occupational Status: retired Housing: care home Household Members: none - Psychiatric History Expresses thoughts of harming self/others: None Suicide Plan Description: No Plan Pschychiatric History:: Reports:: Anxiety, Bipolar Disorder *Family Hx:: Unable to obtain Review of Systems - Review of Systems Review of systems:: pertinent systems reviewed and negative unless documented below - Constitutional Reports fatigue - Eyes Reports change in vision - ENT Denies sore throat - *Cardiovascular Denies chest pain at rest - *Respiratory Reports cough, Denies coughing up blood - *Gastrointestinal Denies abdominal pain - *Genitourinary Denies blood in urine - *Musculoskeletal Denies joint pain - Integumentary/Breasts Denies rash - *Neurologic Denies seizure-like activity - Psychiatric Reports anxiety Meds Home Medications Medication Instructions Recorded Confirmed Type Medical Supply, Miscellaneous 1 each IH CONT 05/22/17 07/09/17 History [Oxygen Concentrator] Nitroglycerin [Nitrostat 0.4mg SL 0.4 mg SL Q5MINP PRN 05/22/17 07/09/17 History Tablet] Ascorbic Acid 500 mg PO DAILY 07/09/17 07/09/17 History Nicotine [Nicoderm 14mg/24hrs 1 each TD DAILY 07/09/17 07/09/17 History patch] Allergies Allergy/AdvReac Type Severity Reaction Status Date / Time No Known Allergies Allergy Verified 06/18/17 16:10 Exam Vital signs and Labs for Last 24 Hours: Temp Pulse Resp BP Pulse Ox 98.0 F 74 20 131/72 94 L 07/10/17 11:56 07/10/17 11:56 07/10/17 11:56 07/10/17 11:56 07/10/17 11:56 Laboratory Results - last 24 hr 07/09/17 12:50: Specimen Source Left brachial, ABG pH 7.33 L, ABG pCO2 78.0 H, ABG pO2 54.0 L, ABG HCO3 40.2 H, ABG Total CO2 42.6 H, ABG O2 Saturation 86 L*, ABG Base Excess 14.3 H, Jaylen Test Non applicable 07/09/17 13:05: WBC 5.4, RBC 4.89, Hgb 13.7, Hct 47.7 H, MCV 97.4, MCH 27.9, MCHC 28.7 L, RDW 18.4 H, Plt Count 175, MPV 7.7, Neut % (Auto) 82.9 H, Lymph % ( Auto) 11.2, [place] % (Auto) 3.9, Eos % (Auto) 1.6, Baso % (Auto) 0.4, Neut # (Auto ) 4.5, Lymph # (Auto) 0.6 L, [place] # (Auto) 0.2, Eos # (Auto) 0.1, Baso # (Auto) 0.0 07/09/17 13:05: Troponin I < 0.02 07/09/17 13:05: B-Natriuretic Peptide 910 H 07/09/17 13:05: Lactic Acid 0.7 07/09/17 14:20: Specimen Source Right radial, O2 % 40% bipap, ABG pH 7.31 L, ABG pCO2 87.8 H, ABG pO2 69.8 L, ABG HCO3 42.8 H, ABG Total CO2 45.5 H, ABG O2 Saturation 92, ABG Base Excess 16.5 H, Jaylen Test Patient unable, Vent Rate 16/6 07/09/17 20:04: POC Glucose 268 H 07/09/17 : Troponin I < 0.02 I & O for Last 24 hours: Intake & Output 07/08/17 07/09/17 07/10/17 07/11/17 11:59 11:59 11:59 11:59 Intake Total Balance Weight 133 lb 6 oz - Constitutional no acute distress - *Routine HEENT Exam Head: Present: normocephalic Eye: Present: EOMI, PERRL ENT: Present: mucous membranes dry - *Routine Neck Exam Present: supple - *Routine Respiratory Exam Present: decreased breath sounds, rhonchi - *Routine Cardiovascular Exam Present: RRR, murmur, S4 - *Routine Abdominal Exam Present: soft - *Routine Extremities Exam Absent: calf tenderness - *Routine Skin Exam Present: intact - *Routine Neurological Exam Present: oriented X3, CN II-XII intact - Routine Psychiatric Exam Present: anxious H&P: Result - Labs Labs: Short CBC 07/09/17 Range/Units 13:05 WBC 5.4 (4.8-10.8) K/mm3 Hgb 13.7 (12.2-16.2) g/dL Hct 47.7 H (37.0-47.0) % Plt Count 175 (142-424) K/mm3 Cardiac Enzymes 07/09/17 07/09/17 Range/Units 13:05 Unknown Troponin I < 0.02 < 0.02 (0.00-0.06) ng/ml Assessment and Plan (1) CAP (community acquired pneumonia) Current visit: Yes Status: Acute Category: Medical Code(s): J18.9 - Pneumonia, unspecified organism (2) COPD (chronic obstructive pulmonary disease) with emphysema Current visit: No Status: Chronic Qualifiers: Emphysema type: unspecified Qualified Code(s): J43.9 - Emphysema, unspecified Category: Medical Code(s): J43.9 - Emphysema, unspecified (3) Diabetes mellitus type 2 in nonobese Current visit: No Status: Chronic Category: Medical Code(s): E11.9 - Type 2 diabetes mellitus without complications (4) Acute respiratory failure with hypoxia and hypercarbia Current visit: Yes Status: Acute Category: Medical Code(s): J96.01 - Acute respiratory failure with hypoxia; J96.02 - Acute respiratory failure with hypercapnia
--- NOTE | 2017-07-10 17:11 | Consult Report ---
History of Present Illness Consult date: 07/10/17 Requesting physician: Jarret Dennison Consult reason: chest pain Chief complaint: Chest pain Additional Medical History:: 1. Diabetes mellitus type 2 2. Severe COPD with ongoing tobacco use A. CO2 Narcosis 3. Nonhealing ulcer of the right foot 4. Hypertension 5. Hyperlipidemia 6. Anxiety History of present illness: 67-year-old white female initially seen in our office yesterday but due to increasing lethargy was sent to the emergency department for evaluation of presumed CO2 narcosis. Patient's CO2 on blood gas was 78 and was noted to have pneumonia on chest x-ray and subsequently admitted. Etiology asked to see the patient for evaluation of history of chest pain and nonhealing ulcer of the right foot. Patient relates the injury to her right foot occurred while dancing on a wood floor at which time she sustained a splinter to the foot. Being a diabetic this progressed quickly and became an infected area with poor healing. Patient is a long-term smoker with severe COPD requiring home oxygen use. Yesterday while in the office the patient related that due to increasing shortness of breath she had increased her oxygen which resulted in increasing lethargy. Cardiac enzymes during her hospital stay have returned normal. EKG shows sinus tachycardia without acute change. The patient does relate a history of chest pain, right sided, that comes on with emotional upset and resolves with sublingual nitroglycerin 1. She has taken this for many years but has never had a heart catheterization. [facility] History Medical History: Reports:: Anxiety, Chronic Obstructive Pulmonary Disease (COPD) , Diabetes Mellitus Type 2, Hyperlipidemia, Hypertension Denies:: Cancer, Diabetes Mellitus Type 1, MRSA Other Medical History: Reports: Arthritis Other Surgeries: Yes: Colonoscopy Amputation: No Fractures: No - *Social History Educational Level: Attended High School Smoking Status: Former smoker Tobacco Type: cigarettes # Packs/Day (cigarettes): 1 #Yrs smoked (if former smoker): 20 Smoking End Date: 30 days ago Alcohol Intake: never Alcohol Intake Frequency:: other Substance Use Type: denies use Occupational Status: retired Housing: senior care Household Members: none - Psychiatric History Expresses thoughts of harming self/others: None Suicide Plan Description: No Plan Pschychiatric History:: Reports:: Anxiety, Bipolar Disorder *Family Hx:: Unable to obtain Meds Home Medications Medication Instructions Recorded Confirmed Type Medical Supply, Miscellaneous 1 each IH CONT 03/07/18 04/24/18 History [Oxygen Concentrator] Nitroglycerin [Nitrostat 0.4mg SL 0.4 mg SL Q5MINP PRN 05/22/17 07/09/17 History Tablet] Ascorbic Acid 500 mg PO DAILY 07/09/17 07/09/17 History Nicotine [Nicoderm 14mg/24hrs 1 each TD DAILY 07/09/17 07/09/17 History patch] Allergies Allergy/AdvReac Type Severity Reaction Status Date / Time No Known Allergies Allergy Verified 06/18/17 16:10 Review of Systems - *Cardiovascular Reports chest pain, Reports shortness of breath, Reports shortness of breath with activity - *Respiratory Reports chest congestion, Reports cough, Reports shortness of breath, Reports shortness of breath with activity - *Gastrointestinal Denies abdominal pain - *Musculoskeletal Reports abnormal walking - *Neurologic Denies seizure-like activity Exam Vital signs and Labs for Last 24 Hours: Temp Pulse Resp BP Pulse Ox 98.1 F 106 H 24 139/84 92 L 07/10/17 16:00 07/10/17 16:00 07/10/17 16:00 07/10/17 16:00 07/10/17 16:00 Laboratory Results - last 24 hr 07/09/17 20:04: POC Glucose 268 H 07/09/17 : Troponin I < 0.02 I & O for Last 24 hours: Intake & Output 07/08/17 07/09/17 07/10/17 07/11/17 11:59 11:59 11:59 11:59 Intake Total Balance Weight 133 lb 6 oz 133 lb 6.004 oz Microbiology Reports for the Last 24 Hours: Microbiology 07/09/17 13:05 Blood Blood Culture - Preliminary NO GROWTH AFTER 24 HOURS 07/09/17 13:05 Blood Blood Culture - Preliminary NO GROWTH AFTER 24 HOURS - *Routine Neck Exam Present: carotid bruit - *Routine Respiratory Exam Present: rhonchi, wheezes, diminished air movement - *Routine Cardiovascular Exam Present: RRR, murmur, tachycardia - *Routine Extremities Exam Present: edema Comments: Right heel and forefoot are wrapped in gauze. - *Routine Neurological Exam Present: alert, oriented X3, moving all extremities Assessment and Plan (1) CAP (community acquired pneumonia) Current visit: Yes Status: Acute Category: Medical Code(s): J18.9 - Pneumonia, unspecified organism (2) COPD (chronic obstructive pulmonary disease) with emphysema Current visit: No Status: Chronic Qualifiers: Emphysema type: unspecified Qualified Code(s): J43.9 - Emphysema, unspecified Category: Medical Code(s): J43.9 - Emphysema, unspecified (3) Diabetes mellitus type 2 in nonobese Current visit: No Status: Chronic Category: Medical Code(s): E11.9 - Type 2 diabetes mellitus without complications (4) Acute respiratory failure with hypoxia and hypercarbia Current visit: Yes Status: Acute Category: Medical Code(s): J96.01 - Acute respiratory failure with hypoxia; J96.02 - Acute respiratory failure with hypercapnia (5) Chest pain Current visit: Yes Status: Acute Category: Medical Code(s): R07.9 - Chest pain, unspecified (6) Peripheral arterial disease Current visit: Yes Status: Acute Category: Medical Code(s): I73.9 - Peripheral vascular disease, unspecified (7) Nonhealing ulcer of heel Current visit: Yes Status: Acute Category: Medical Code(s): L97.409 - Non- pressure chronic ulcer of unspecified heel and midfoot with unspecified severity (8) Cardiomegaly Current visit: Yes Status: Acute Category: Medical Code(s): I51.7 - Cardiomegaly - Assessment and plan all Dx Assessment and Plan for all problems:: 1. Due to cardiomegaly on chest x-ray and history of hypertension and chest pain would recommend proceeding with echocardiogram to evaluate left ventricular size, function and valve status. 2. I did discuss proceeding with cardiac catheterization and lower extremity arteriogram due to history of chest pain and nonhealing ulcer to evaluate for coronary artery disease and peripheral arterial disease, however patient is reluctant to proceed at this time. We will therefore proceed with medical therapy in the form of beta-chicho and aspirin therapy. She will continue use of nitroglycerin as needed for chest pain. If the patient is unable to tolerate beta-chicho therapy then consider calcium channel chicho therapy in the form of Cardizem for help with rate control as well as anti-anginal effect. 3. Smoking cessation is recommended and patient is willing and ready to stop smoking.
--- NOTE | 2017-07-11 08:43 | Progress Note ---
Internal Medicine - PN: Subj *Date: 07/11/17 *Time: 08:41 Exam Vital signs and Labs for Last 24 Hours: Temp Pulse Resp BP Pulse Ox 98.0 F 81 20 115/62 95 07/11/17 07:50 07/11/17 07:50 07/11/17 07:50 07/11/17 07:50 07/11/17 07:50 I & O for Last 24 hours: Intake & Output 07/08/17 07/09/17 07/10/17 07/11/17 11:59 11:59 11:59 11:59 Intake Total 880 / 880 Output Total 300 / 300 Balance 580 / 580 Weight 133 lb 6 oz 127 lb Microbiology Reports for the Last 24 Hours: Microbiology 07/09/17 13:05 Blood Blood Culture - Preliminary NO GROWTH AFTER 24 HOURS 07/09/17 13:05 Blood Blood Culture - Preliminary NO GROWTH AFTER 24 HOURS - Constitutional no acute distress - *Routine HEENT Exam Head: Present: normocephalic Eye: Present: PERRL ENT: Present: mucous membranes moist - *Routine Neck Exam Present: full ROM - *Routine Respiratory Exam Present: diminished air movement - *Routine Cardiovascular Exam Present: RRR - *Routine Abdominal Exam Present: soft, normoactive bowel sounds - *Routine Extremities Exam Present: full ROM Comments: Dressing to right foot clean dry and intact - *Routine Skin Exam Present: intact - *Routine Neurological Exam Drowsy but arousable - Routine Psychiatric Exam Present: normal affect Assessment and Plan (1) CAP (community acquired pneumonia) Current visit: Yes Status: Acute Category: Medical Code(s): J18.9 - Pneumonia, unspecified organism (2) COPD (chronic obstructive pulmonary disease) with emphysema Current visit: No Status: Chronic Qualifiers: Emphysema type: unspecified Qualified Code(s): J43.9 - Emphysema, unspecified Category: Medical Code(s): J43.9 - Emphysema, unspecified (3) Diabetes mellitus type 2 in nonobese Current visit: No Status: Chronic Category: Medical Code(s): E11.9 - Type 2 diabetes mellitus without complications (4) Acute respiratory failure with hypoxia and hypercarbia Current visit: Yes Status: Acute Category: Medical Code(s): J96.01 - Acute respiratory failure with hypoxia; J96.02 - Acute respiratory failure with hypercapnia (5) Chest pain Current visit: Yes Status: Acute Category: Medical Code(s): R07.9 - Chest pain, unspecified (6) Peripheral arterial disease Current visit: Yes Status: Acute Category: Medical Code(s): I73.9 - Peripheral vascular disease, unspecified (7) Nonhealing ulcer of heel Current visit: Yes Status: Acute Category: Medical Code(s): L97.409 - Non- pressure chronic ulcer of unspecified heel and midfoot with unspecified severity (8) Cardiomegaly Current visit: Yes Status: Acute Category: Medical Code(s): I51.7 - Cardiomegaly - Assessment and plan all Dx Assessment and Plan for all problems:: Venous Doppler bilateral lower extremities CT chest to rule out PE related to low O2 saturation ABG
[2017-07-11 08:52] LABS: ABG Base Excess 18.1 mmol/L (-2.4-2.3); ABG HCO3 43.5 mmhg (22.0-26.0); ABG Oxygen Saturation 60 % (90-100); ABG PH 7.36 mmol/L (7.35-7.45); ABG TCO2 45.9 mmhg (23-27)
[2017-07-11 08:55] LABS: Allen's Test Acceptable; Oxygen room air %
[2017-07-11 08:57] LABS: ABG PCO2 78.1 mmhg (35.0-45.0); ABG PO2 31.1 mmhg (80-100)
[2017-07-11 09:21] LABS: Albumin Level 2.5 gm/dL (3.4-5.0); Albumin/Globulin Ratio 0.6 (1.1-1.8); Anion Gap 4.6 mEq/L (5-15); Bilirubin,Total 0.3 mg/dL (0.2-1.0); Calcium 8.8 mg/dL (8.5-10.1); Globulin 3.9 gm/dl (1.3-3.2); Potassium 4.6 mmoL/L (3.5-5.1); Total Protein,Serum 6.4 gm/dL (6.4-8.2)
[2017-07-11 09:35] LABS: Basophils % 0.1 % (0.1-2.0); Eosinophils % 0.1 % (0.1-12.0); Hematocrit 42.6 % (37.0-47.0); Hemoglobin 11.9 g/dL (12.2-16.2); Lymphocytes # 1.5 K/mm3 (0.7-4.5); Lymphocytes % 19.7 K/mm3 (10-50); Mean Corpuscular Hemoglobin 27.4 pg (27.0-31.2); Mean Corpuscular Volume 97.8 fl (81-99); Mean Platelet Volume 7.8 fl (7.4-10.4); Monocytes # 0.4 K/mm3 (0.1-1.0); Monocytes % 4.9 % (1.7-9.3); Neutrophils # 5.8 K/mm3 (1.8-7.8); Neutrophils % 75.2 % (37.0-80.0); Platelet Count 180 K/mm3 (142-424); Red Blood Count 4.36 M/mm3 (4.20-5.40); Red Cell Distribution Width 18.4 % (11.5-17.5); White Blood Count 7.8 K/mm3 (4.8-10.8)
--- NOTE | 2017-07-11 10:06 | Non-Invasive Vascular Report ---
"Venous Exam Indications: 729.5 Pain in limb. IMPRESSIONS No evidence of deep or superficial vein thrombosis involving the right lower extremity and left lower extremity History: Bilateral lower extremity pain. Swelling of both lower extremities. Dyspnea. Risk factors: Former tobacco use. Hypertension. Complete lower extremity venous duplex evaluation. Doppler flow study including spectral analysis, color and maloney scale imaging. Location: Bedside. Patient status: Inpatient. CRITICAL FINDINGS - Reported to: ALEK Najera - Read back and verified. - 07/11/17 - 09:40 - Bilateral venous negative for DVT or SVT Tables: Venous flow and imaging: + +-------+ + |Location |Overall|Flow properties | + +-------+ + |Right common femoral |Patent |Normal phasicity; spontaneous; | | | |normal augmentation; compressible| + +-------+ + |Right saphenofemoral junction|Patent |Compressible | + +-------+ + |Right profunda femoral |Patent |Compressible | + +-------+ + |Right femoral |Patent |Normal phasicity; spontaneous; | | | |normal augmentation; | | | |compressible; no reflux | + +-------+ + |Right greater saphenous |Patent |Normal phasicity; spontaneous; | | | |normal augmentation; compressible| + +-------+ + |Right popliteal |Patent |Normal phasicity; spontaneous; | | | |normal augmentation; compressible| + +-------+ + |Right posterior tibial |Patent |Compressible | + +-------+ + |Right peroneal |Patent |Compressible | + +-------+ + |Right gastrocnemius |Patent |Compressible | + +-------+ + |Right soleal |Patent |Compressible | + +-------+ + |Left common femoral |Patent |Normal phasicity; spontaneous; | | | |normal augmentation; compressible| + +-------+ + |Left saphenofemoral junction |Patent |Compressible | + +-------+ + |Left profunda femoral |Patent |Compressible | + +-------+ + |Left femoral |Patent |Normal phasicity; spontaneous; | | | |normal augmentation; compressible| + +-------+ + |Left greater saphenous |Patent |Normal phasicity; spontaneous; | | | |normal augmentation; compressible| + +-------+ + |Left popliteal |Patent |Normal phasicity; spontaneous; | | | |normal augmentation; compressible| + +-------+ + |Left posterior tibial |Patent |Compressible | + +-------+ + |Left peroneal |Patent |Compressible | + +-------+ + |Left gastrocnemius |Patent |Compressible | + +-------+ + |Left soleal |Patent |Compressible | + +-------+ + (Report amended ) Electronically signed by: Jaylen Valentin [id number]"
--- NOTE | 2017-07-11 10:11 | Progress Note ---
Subjective Date: 07/11/17 Time: 10:07 Principal diagnosis: chest pain Interval history: 67 yo WF in bed in [facility]. Bilateral venous dopplers just now completed and preliminary report shows no DVT. Patient doesn't remember talking to me yesterday and is adament about not having any heart procedures done here. She denies any chest pain at this time. Exam Vital signs and Labs for Last 24 Hours: Temp Pulse Resp BP Pulse Ox 98.0 F 81 20 115/62 95 07/11/17 07:50 07/11/17 07:50 07/11/17 07:50 07/11/17 07:50 07/11/17 07:50 Laboratory Results - last 24 hr 07/11/17 08:38: Specimen Source Right radial, O2 % room air, ABG pH 7.36, ABG pCO2 78.1 H, ABG pO2 31.1 L, ABG HCO3 43.5 H, ABG Total CO2 45.9 H, ABG O2 Saturation 60 L*, ABG Base Excess 18.1 H, Jaylen Test Acceptable 07/11/17 08:53: WBC 7.8 D, RBC 4.36, Hgb 11.9 L, Hct 42.6, MCV 97.8, MCH 27.4, MCHC 28.0 L, RDW 18.4 H, Plt Count 180, MPV 7.8, Neut % (Auto) 75.2, Lymph % ( Auto) 19.7, Real % (Auto) 4.9, Eos % (Auto) 0.1, Baso % (Auto) 0.1, Neut # (Auto ) 5.8, Lymph # (Auto) 1.5, Real # (Auto) 0.4, Eos # (Auto) 0.0, Baso # (Auto) 0.0 07/11/17 08:53: Sodium 149 H, Potassium 4.6, Chloride 106, Carbon Dioxide 43 H* , Anion Gap 4.6 L, BUN 23 H, Creatinine 0.47 L, Estimated Creat Clear 50, Estimated GFR 133, Est GFR ( Amer) 160, Glucose 144 H, Calcium 8.8, Total Bilirubin 0.3, AST 28, ALT 56, Alkaline Phosphatase 94, Total Protein 6.4 , Albumin 2.5 L, Globulin 3.9 H, Albumin/Globulin Ratio 0.6 L I & O for Last 24 hours: Intake & Output 07/08/17 07/09/17 07/10/17 07/11/17 11:59 11:59 11:59 11:59 Intake Total 880 / 880 Output Total 300 / 300 Balance 580 / 580 Weight 133 lb 6 oz 127 lb Microbiology Reports for the Last 24 Hours: Microbiology 07/09/17 13:05 Blood Blood Culture - Preliminary NO GROWTH AFTER 24 HOURS 07/09/17 13:05 Blood Blood Culture - Preliminary NO GROWTH AFTER 24 HOURS - *Routine Respiratory Exam Present: diminished air movement - *Routine Cardiovascular Exam Present: RRR, murmur Progress Note: A&P (1) CAP (community acquired pneumonia) Status: Acute Current Visit: Yes (2) COPD (chronic obstructive pulmonary disease) with emphysema Status: Chronic Current Visit: No (3) Diabetes mellitus type 2 in nonobese Status: Chronic Current Visit: No (4) Acute respiratory failure with hypoxia and hypercarbia Status: Acute Current Visit: Yes (5) Chest pain Status: Acute Current Visit: Yes (6) Peripheral arterial disease Status: Acute Current Visit: Yes (7) Nonhealing ulcer of heel Status: Acute Current Visit: Yes (8) Cardiomegaly Status: Acute Current Visit: Yes Assessment and Plan for All Diagnoses:: Recommend continue ASA and metoprolol. Pt is adament about not having any cardiac procedure at [facility]. Pt has some CO2 retention and likely some confusion as a result. Dr. Dennison is treating pulmonary issues. We will be available as needed.
--- NOTE | 2017-07-11 10:39 | Cardiology Report ---
PROCEDURE: 2-D M-mode and color Doppler study INDICATIONS FOR THE TEST: Chest pain X COPDX Heart Murmur Tobacco SmokingX Palpitations Fatigue Syncope Edema HypertensionXDiabetes MellitusX Rheumatic Fever SOBXDOEXObesity HyperlipidemiaX Family History HD Additional History TDS SECONDARY TO COPD OFF AXIS APICALS PATIENT INFORMATION HEIGHT: 61 WEIGHT:127 GENDER: Female B/P:104/62 2-D/M-MODE INTERPRETATION: 2-D MEASUREMENTS OBSERVED VALUES IN CMS Right Ventricular Dimension (RVDd) 2.3 Interventricular Septum (Thickness)(IVsd) 1.6 Left Ventricular Internal Dimensions(LVIDd) 3.4 Left Ventricular Posterior Wall (Thickness)(LVPWd) 1.4 Aortic Root 3.6 Aortic Cusp Separation 1.2 Left Atrial Dimensions (LAD) 2.5 2D 1. Technically difficult study because of the patient's factor and poor acoustic windows. 2. The left atrium is normal size, left ventricle is normal size, mild concentric left ventricular hypertrophy, visually estimated ejection fraction 55% with no obvious regional wall motion abnormality, there is flattening of the interventricular septum during systole and diastole consistent with pressure and volume overload on right ventricle. 3. The right atrium ventricle are moderately enlarged, contractility of the right ventricle is moderately reduced. 4. The aortic valve is thickened and calcified, leaflet continue to display good mobility. 5. The mitral and tricuspid valve leaflets are minimally thickened. 6. Small pericardial effusion noted. DOPPLER INTERROGATION: Doppler interrogation of the aortic, mitral and tricuspid valvular presence of mild mitral and tricuspid regurgitation, calculated right ventricular systolic pressure 61 mmHg consistent with moderate pulmonary hypertension. CONCLUSION: 1. Normal left ventricular size, mild concentric left ventricular hypertrophy, visually estimated ejection fraction 55% with no obvious regional wall motion abnormality, there is flattening of the interventricular septum during systole and diastole consistent with pressure and volume overload on right ventricle. 2. Dilated right ventricle with moderate reduction in right ventricular systolic function. 3. Mild mitral and tricuspid regurgitation, calculated right ventricular systolic pressure 61 mmHg consistent with moderate pulmonary hypertension. 4. Small pericardial effusion noted.
--- NOTE | 2017-07-11 13:55 | Pharmacy Consult Notes ---
- Pharmacy Consult Date: 07/11/17 Time: 13:00 Referring provider: XOCHILT Reason for Consult:: Patient admitted with possible pneumonia. Pt currently on Ceftriaxone 1gm every 24 hours and azithromycin 500mg every 24 hours. MD does not see anticipated improvement. Pt had a short stay in a long-term, would like to initiate HCAP antibiotic therapy. Allergies and ADEs:: Allergies Allergy/AdvReac Type Severity Reaction Status Date / Time No Known Allergies Allergy Verified 06/18/17 16:10 Home Medications:: Home Medications Medication Instructions Recorded Confirmed Type Medical Supply, Miscellaneous 1 each IH CONT 05/22/17 07/09/17 History [Oxygen Concentrator] Nitroglycerin [Nitrostat 0.4mg SL 0.4 mg SL Q5MINP PRN 05/22/17 07/09/17 History Tablet] Ascorbic Acid 500 mg PO DAILY 07/09/17 07/09/17 History Nicotine [Nicoderm 14mg/24hrs 1 each TD DAILY 07/09/17 07/09/17 History patch] Height: 1.55 m Weight: 57.606 kg Laboratory Results:: Laboratory Results - last 24 hr 07/11/17 08:38: Specimen Source Right radial, O2 % room air, ABG pH 7.36, ABG pCO2 78.1 H, ABG pO2 31.1 L, ABG HCO3 43.5 H, ABG Total CO2 45.9 H, ABG O2 Saturation 60 L*, ABG Base Excess 18.1 H, Jaylen Test Acceptable 07/11/17 08:53: WBC 7.8 D, RBC 4.36, Hgb 11.9 L, Hct 42.6, MCV 97.8, MCH 27.4, MCHC 28.0 L, RDW 18.4 H, Plt Count 180, MPV 7.8, Neut % (Auto) 75.2, Lymph % ( Auto) 19.7, [place] % (Auto) 4.9, Eos % (Auto) 0.1, Baso % (Auto) 0.1, Neut # (Auto ) 5.8, Lymph # (Auto) 1.5, [place] # (Auto) 0.4, Eos # (Auto) 0.0, Baso # (Auto) 0.0 07/11/17 08:53: Sodium 149 H, Potassium 4.6, Chloride 106, Carbon Dioxide 43 H* , Anion Gap 4.6 L, BUN 23 H, Creatinine 0.47 L, Estimated Creat Clear 50, Estimated GFR 133, Est GFR ( Amer) 160, Glucose 144 H, Calcium 8.8, Total Bilirubin 0.3, AST 28, ALT 56, Alkaline Phosphatase 94, Total Protein 6.4 , Albumin 2.5 L, Globulin 3.9 H, Albumin/Globulin Ratio 0.6 L Medical History: Reports:: Anxiety, Chronic Obstructive Pulmonary Disease (COPD) , Diabetes Mellitus Type 2, Hyperlipidemia, Hypertension Denies:: Cancer, Diabetes Mellitus Type 1, MRSA Assessment and Plan (1) CAP (community acquired pneumonia) Current visit: Yes Status: Acute Category: Medical Code(s): J18.9 - Pneumonia, unspecified organism (2) COPD (chronic obstructive pulmonary disease) with emphysema Current visit: No Status: Chronic Qualifiers: Emphysema type: unspecified Qualified Code(s): J43.9 - Emphysema, unspecified Category: Medical Code(s): J43.9 - Emphysema, unspecified (3) Diabetes mellitus type 2 in nonobese Current visit: No Status: Chronic Category: Medical Code(s): E11.9 - Type 2 diabetes mellitus without complications (4) Acute respiratory failure with hypoxia and hypercarbia Current visit: Yes Status: Acute Category: Medical Code(s): J96.01 - Acute respiratory failure with hypoxia; J96.02 - Acute respiratory failure with hypercapnia (5) Chest pain Current visit: Yes Status: Acute Category: Medical Code(s): R07.9 - Chest pain, unspecified (6) Peripheral arterial disease Current visit: Yes Status: Acute Category: Medical Code(s): I73.9 - Peripheral vascular disease, unspecified (7) Nonhealing ulcer of heel Current visit: Yes Status: Acute Category: Medical Code(s): L97.409 - Non- pressure chronic ulcer of unspecified heel and midfoot with unspecified severity (8) Cardiomegaly Current visit: Yes Status: Acute Category: Medical Code(s): I51.7 - Cardiomegaly - Assessment and plan all Dx Assessment and Plan for all problems:: Pt changed to cefepime 2gm every 8 hours, azithromycin 500mg every 24 hours and gentimicin 240mg every 48 hours. Pharmacy will follow daily and adjust as needed. Thanks.
[2017-07-12 06:47] LABS: Basophils % 0.1 % (0.1-2.0); Eosinophils % 0.1 % (0.1-12.0); Hematocrit 42.1 % (37.0-47.0); Hemoglobin 12.1 g/dL (12.2-16.2); Lymphocytes # 1.6 K/mm3 (0.7-4.5); Lymphocytes % 19.6 K/mm3 (10-50); Mean Corpuscular HGB Conc 28.8 g/dL (31.8-35.4); Mean Corpuscular Hemoglobin 28.2 pg (27.0-31.2); Mean Corpuscular Volume 97.8 fl (81-99); Mean Platelet Volume 8.2 fl (7.4-10.4); Monocytes # 0.5 K/mm3 (0.1-1.0); Neutrophils # 5.9 K/mm3 (1.8-7.8); Neutrophils % 74.2 % (37.0-80.0); Platelet Count 150 K/mm3 (142-424); Red Cell Distribution Width 18.3 % (11.5-17.5)
[2017-07-12 06:54] LABS: Albumin Level 2.6 gm/dL (3.4-5.0); Albumin/Globulin Ratio 0.6 (1.1-1.8); Anion Gap 1.7 mEq/L (5-15); Bilirubin,Total 0.4 mg/dL (0.2-1.0); Calcium 8.6 mg/dL (8.5-10.1); Globulin 4.1 gm/dl (1.3-3.2); Potassium 4.7 mmoL/L (3.5-5.1); Total Protein,Serum 6.7 gm/dL (6.4-8.2)
--- NOTE | 2017-07-12 08:00 | Progress Note ---
Subjective Date: 07/12/17 Time: 07:57 Principal diagnosis: chest pain Interval history: WF in bed in NAD. Denies chest pain and still adament about not having any invasive procedures. Still with some SOA which she attributes to recent steroid use. Echo shows normal LVEF with elevated RVSP with RV enlargement. Exam Vital signs and Labs for Last 24 Hours: Temp Pulse Resp BP Pulse Ox 97.9 F 90 22 132/66 90 L 07/12/17 04:31 07/12/17 04:07/12/17 04:07/12/17 04:07/12/17 04:31 Laboratory Results - last 24 hr 07/11/17 08:38: Specimen Source Right radial, O2 % room air, ABG pH 7.36, ABG pCO2 78.1 H, ABG pO2 31.1 L, ABG HCO3 43.5 H, ABG Total CO2 45.9 H, ABG O2 Saturation 60 L*, ABG Base Excess 18.1 H, Jaylen Test Acceptable 07/11/17 08:53: WBC 7.8 D, RBC 4.36, Hgb 11.9 L, Hct 42.6, MCV 97.8, MCH 27.4, MCHC 28.0 L, RDW 18.4 H, Plt Count 180, MPV 7.8, Neut % (Auto) 75.2, Lymph % ( Auto) 19.7, [place] % (Auto) 4.9, Eos % (Auto) 0.1, Baso % (Auto) 0.1, Neut # (Auto ) 5.8, Lymph # (Auto) 1.5, [place] # (Auto) 0.4, Eos # (Auto) 0.0, Baso # (Auto) 0.0 07/11/17 08:53: Sodium 149 H, Potassium 4.6, Chloride 106, Carbon Dioxide 43 H* , Anion Gap 4.6 L, BUN 23 H, Creatinine 0.47 L, Estimated Creat Clear 50, Estimated GFR 133, Est GFR ( Amer) 160, Glucose 144 H, Calcium 8.8, Total Bilirubin 0.3, AST 28, ALT 56, Alkaline Phosphatase 94, Total Protein 6.4 , Albumin 2.5 L, Globulin 3.9 H, Albumin/Globulin Ratio 0.6 L 07/11/17 18:00: Random Gentamicin 6.6 07/12/17 06:29: WBC 8.0, RBC 4.30, Hgb 12.1 L, Hct 42.1, MCV 97.8, MCH 28.2, MCHC 28.8 L, RDW 18.3 H, Plt Count 150, MPV 8.2, Neut % (Auto) 74.2, Lymph % ( Auto) 19.6, [place] % (Auto) 6.0, Eos % (Auto) 0.1, Baso % (Auto) 0.1, Neut # (Auto ) 5.9, Lymph # (Auto) 1.6, [place] # (Auto) 0.5, Eos # (Auto) 0.0, Baso # (Auto) 0.0 07/12/17 06:29: Sodium 144, Potassium 4.7, Chloride 104, Carbon Dioxide 43 H*, Anion Gap 1.7 L, BUN 25 H, Creatinine 0.51 L, Estimated Creat Clear 50, Estimated GFR 121, Est GFR ( Amer) 146, Glucose 189 H D, Calcium 8.6, Total Bilirubin 0.4, AST 37 D, ALT 81 H D, Alkaline Phosphatase 91, Total Protein 6.7, Albumin 2.6 L, Globulin 4.1 H, Albumin/Globulin Ratio 0.6 L I & O for Last 24 hours: Intake & Output 07/09/17 07/10/17 07/11/17 07/12/17 11:59 11:59 11:59 11:59 Intake Total 880 / 880 720 / 720 Output Total 300 / 300 Balance 580 / 580 720 / 720 Weight 133 lb 6 oz 127 lb 127 lb Microbiology Reports for the Last 24 Hours: Microbiology 07/11/17 16:34 Sputum - Expectorated Sputum Gram Stain - Final 07/09/17 13:05 Blood Blood Culture - Preliminary NO GROWTH AFTER 48 HOURS 07/09/17 13:05 Blood Blood Culture - Preliminary NO GROWTH AFTER 48 HOURS - *Routine Respiratory Exam Present: rhonchi, wheezes, diminished air movement - *Routine Cardiovascular Exam Present: RRR Progress Note: A&P (1) CAP (community acquired pneumonia) Status: Acute Current Visit: Yes (2) COPD (chronic obstructive pulmonary disease) with emphysema Status: Chronic Current Visit: No (3) Diabetes mellitus type 2 in nonobese Status: Chronic Current Visit: No (4) Acute respiratory failure with hypoxia and hypercarbia Status: Acute Current Visit: Yes (5) Chest pain Status: Acute Current Visit: Yes (6) Peripheral arterial disease Status: Acute Current Visit: Yes (7) Nonhealing ulcer of heel Status: Acute Current Visit: Yes (8) Cardiomegaly Status: Acute Current Visit: Yes Assessment and Plan for All Diagnoses:: CT shows no evidence of PE or aortic dissection. Notation of pleural effusions, emphysema, pulmonary fibrosis and pneumonia noted. With elevated RVSP on echo will start IV lasix to help with SOA and effusions. Recommend GERRY in light of heel ulcer/wound to assess for PAD.
--- NOTE | 2017-07-12 09:18 | Discharge Summary ---
General - General Admission date:: 07/09/17 Discharge date: 07/12/17 HPI HPI: this wf was seen in the edatient is a 67-year-old female patient brought by Dr. Powers and staff to the emergency room for evaluation of lethargy, confusion low pulse ox readings and chest pain for the past 2-3 days. Patient is a new patient to Dr. Powers. She has been using as needed oxygen , however over the past 2-3 days the patient has been constantly on oxygen. Her family member advised that she has a right foot ulcer for which she has been seeing Dr. Mendez, and she also has been treated for diabetes for the past 4 years, with metformin. This recently came under debate, and the metformin dose was adjusted down, per family member. Pox on RA on arrival is 86%.pt was found to have a cap and was admitted Hospital Course Hospital Course: echo CONCLUSION: 1. Normal left ventricular size, mild concentric left ventricular hypertrophy, visually estimated ejection fraction 55% with no obvious regional wall motion abnormality, there is flattening of the interventricular septum during systole and diastole consistent with pressure and volume overload on right ventricle. 2. Dilated right ventricle with moderate reduction in right ventricular systolic function. 3. Mild mitral and tricuspid regurgitation, calculated right ventricular systolic pressure 61 mmHg consistent with moderate pulmonary hypertension. 4. Small pericardial effusion noted. ct pe:IMPRESSION: 1. No evidence of pulmonary embolus or aortic aneurysm. 2. Moderate-sized bilateral pleural effusions with compressive atelectatic changes. 3. Centrilobular and paraseptal emphysema with diffuse pulmonary fibrosis and honeycombing in the right upper lobe. 4. Right middle lobe consolidation/volume loss venous doppler:IMPRESSIONS No evidence of deep or superficial vein thrombosis involving the right lower extremity and left lower extremity Patient wants to go back to [place]. Will continue IV antibiotics Invanz 1 g daily. Will have outpatient GERRY arranged to evaluate wound on foot. I will see patient on rounds on Saturday at [facility] Objective Vital signs: Temp Pulse Resp BP Pulse Ox 97.6 F 89 20 105/68 90 L 07/12/17 08:00 07/12/17 08:00 07/12/17 08:00 07/12/17 08:00 07/12/17 08:00 no acute distress - *Routine HEENT Exam Head: Present: normocephalic Eye: Present: PERRL ENT: Present: mucous membranes moist - *Routine Neck Exam Present: full ROM - *Routine Respiratory Exam Present: CTA bilaterally, diminished air movement - *Routine Cardiovascular Exam Present: RRR - *Routine Abdominal Exam Present: soft, normoactive bowel sounds - *Routine Extremities Exam Present: full ROM, pulses intact Comments: Dressing to right foot removed small pea-sized scab noted on foot redness or drainage noted - *Routine Skin Exam Present: wounds - *Routine Neurological Exam Present: alert, oriented X3 - Routine Psychiatric Exam Present: normal affect, normal thought process Results Labs on day of discharge: Labs from last 24 hours 07/12/17 07/12/17 07/11/17 06:29 06:29 18:00 WBC 8.0 RBC 4.30 Hgb 12.1 L Hct 42.1 MCV 97.8 MCH 28.2 MCHC 28.8 L RDW 18.3 H Plt Count 150 MPV 8.2 Neut % (Auto) 74.2 Lymph % (Auto) 19.6 [place] % (Auto) 6.0 Eos % (Auto) 0.1 Baso % (Auto) 0.1 Neut # (Auto) 5.9 Lymph # (Auto) 1.6 [place] # (Auto) 0.5 Eos # (Auto) 0.0 Baso # (Auto) 0.0 Sodium 144 Potassium 4.7 Chloride 104 Carbon Dioxide 43 H* Anion Gap 1.7 L BUN 25 H Creatinine 0.51 L Estimated Creat Clear 50 Estimated GFR 121 Est GFR ( Amer) 146 Glucose 189 H D Calcium 8.6 Total Bilirubin 0.4 AST 37 D ALT 81 H D Alkaline Phosphatase 91 Total Protein 6.7 Albumin 2.6 L Globulin 4.1 H Albumin/Globulin Ratio 0.6 L Random Gentamicin 6.6 07/11/17 07/11/17 08:53 08:53 WBC 7.8 D RBC 4.36 Hgb 11.9 L Hct 42.6 MCV 97.8 MCH 27.4 MCHC 28.0 L RDW 18.4 H Plt Count 180 MPV 7.8 Neut % (Auto) 75.2 Lymph % (Auto) 19.7 [place] % (Auto) 4.9 Eos % (Auto) 0.1 Baso % (Auto) 0.1 Neut # (Auto) 5.8 Lymph # (Auto) 1.5 [place] # (Auto) 0.4 Eos # (Auto) 0.0 Baso # (Auto) 0.0 Sodium 149 H Potassium 4.6 Chloride 106 Carbon Dioxide 43 H* Anion Gap 4.6 L BUN 23 H Creatinine 0.47 L Estimated Creat Clear 50 Estimated GFR 133 Est GFR ( Amer) 160 Glucose 144 H Calcium 8.8 Total Bilirubin 0.3 AST 28 ALT 56 Alkaline Phosphatase 94 Total Protein 6.4 Albumin 2.5 L Globulin 3.9 H Albumin/Globulin Ratio 0.6 L Random Gentamicin Preliminary micro results at discharge 07/09/17 13:05 Blood Culture - Preliminary Blood NO GROWTH AFTER 48 HOURS 07/09/17 13:05 Blood Culture - Preliminary Blood NO GROWTH AFTER 48 HOURS - Additional Comments Round Dr. Dennison all orders per Dr. Dennison DS: Diagnosis - Discharge Diagnosis (1) CAP (community acquired pneumonia) Status: Acute (2) COPD (chronic obstructive pulmonary disease) with emphysema Status: Chronic (3) Diabetes mellitus type 2 in nonobese Status: Chronic (4) Acute respiratory failure with hypoxia and hypercarbia Status: Acute (5) Chest pain Status: Acute (6) Peripheral arterial disease Status: Acute (7) Nonhealing ulcer of heel Status: Acute (8) Cardiomegaly Status: Acute Discharge Plan - Patient Discharge Instructions ACTIVITY: Continue current activity DIET: continue same diet Patient Instructions: Pneumonia-Adult - Follow up Plan Follow up with: Tracey Duran APRN [Advanced Practice Nurse] - 07/16/17 Disposition: Xfer [facility] Home Medications: Home Medications Medication Instructions Recorded Confirmed Type Medical Supply, Miscellaneous 1 each IH CONT 05/22/17 07/09/17 History [Oxygen Concentrator] Nitroglycerin [Nitrostat 0.4mg SL 0.4 mg SL Q5MINP PRN 05/22/17 07/09/17 History Tablet] Ascorbic Acid 500 mg PO DAILY 07/09/17 07/09/17 History Nicotine [Nicoderm 14mg/24hrs 1 each TD DAILY 07/09/17 07/09/17 History patch] Prescriptions/Medication Reconciliation: New Ertapenem Sodium [Invanz 1gm Vial] 1 gm IJ DAILY 10 Days vial Continue Medical Supply, Miscellaneous [Oxygen Concentrator] 1 each IH CONT Nitroglycerin [Nitrostat 0.4mg SL Tablet] 0.4 mg SL Q5MINP PRN PRN Reason: Chest Pain Isosorbide Mononitrate 10 mg PO DAILY 30 Days #30 tab predniSONE [Prednisone 20mg Tab] 10 mg PO DAILY #15 tab Nicotine [Nicoderm 14mg/24hrs patch] 1 each TD DAILY Ascorbic Acid 500 mg PO DAILY diazePAM [Valium] 5 mg PO DAILY 30 Days #30 tab
--- NOTE | 2017-07-12 10:35 | Pharmacy Consult Notes ---
- Pharmacy Consult Date: 07/12/17 Time: 10:31 Referring provider: DR. CARNES Reason for Consult:: GENTAMICIN DOSING Allergies and ADEs:: Allergies Allergy/AdvReac Type Severity Reaction Status Date / Time No Known Allergies Allergy Verified 06/18/17 16:10 Home Medications:: Home Medications Medication Instructions Recorded Confirmed Type Medical Supply, Miscellaneous 1 each IH CONT 05/22/17 07/09/17 History [Oxygen Concentrator] Nitroglycerin [Nitrostat 0.4mg SL 0.4 mg SL Q5MINP PRN 05/22/17 07/09/17 History Tablet] Ascorbic Acid 500 mg PO DAILY 07/09/17 07/09/17 History Nicotine [Nicoderm 14mg/24hrs 1 each TD DAILY 07/09/17 07/09/17 History patch] Height: 1.55 m Weight: 57.606 kg Laboratory Results:: Laboratory Results - last 24 hr 07/11/17 18:00: Random Gentamicin 6.6 07/12/17 06:29: WBC 8.0, RBC 4.30, Hgb 12.1 L, Hct 42.1, MCV 97.8, MCH 28.2, MCHC 28.8 L, RDW 18.3 H, Plt Count 150, MPV 8.2, Neut % (Auto) 74.2, Lymph % ( Auto) 19.6, [place] % (Auto) 6.0, Eos % (Auto) 0.1, Baso % (Auto) 0.1, Neut # (Auto ) 5.9, Lymph # (Auto) 1.6, [place] # (Auto) 0.5, Eos # (Auto) 0.0, Baso # (Auto) 0.0 07/12/17 06:29: Sodium 144, Potassium 4.7, Chloride 104, Carbon Dioxide 43 H*, Anion Gap 1.7 L, BUN 25 H, Creatinine 0.51 L, Estimated Creat Clear 50, Estimated GFR 121, Est GFR ( Amer) 146, Glucose 189 H D, Calcium 8.6, Total Bilirubin 0.4, AST 37 D, ALT 81 H D, Alkaline Phosphatase 91, Total Protein 6.7, Albumin 2.6 L, Globulin 4.1 H, Albumin/Globulin Ratio 0.6 L 07/12/17 06:29: Random Gentamicin 1.1 L Medical History: Reports:: Anxiety, Chronic Obstructive Pulmonary Disease (COPD) , Diabetes Mellitus Type 2, Hyperlipidemia, Hypertension Denies:: Cancer, Diabetes Mellitus Type 1, MRSA Assessment and Plan (1) CAP (community acquired pneumonia) Current visit: Yes Status: Acute Category: Medical Code(s): J18.9 - Pneumonia, unspecified organism (2) COPD (chronic obstructive pulmonary disease) with emphysema Current visit: No Status: Chronic Qualifiers: Emphysema type: unspecified Qualified Code(s): J43.9 - Emphysema, unspecified Category: Medical Code(s): J43.9 - Emphysema, unspecified (3) Diabetes mellitus type 2 in nonobese Current visit: No Status: Chronic Category: Medical Code(s): E11.9 - Type 2 diabetes mellitus without complications (4) Acute respiratory failure with hypoxia and hypercarbia Current visit: Yes Status: Acute Category: Medical Code(s): J96.01 - Acute respiratory failure with hypoxia; J96.02 - Acute respiratory failure with hypercapnia (5) Chest pain Current visit: Yes Status: Acute Category: Medical Code(s): R07.9 - Chest pain, unspecified (6) Peripheral arterial disease Current visit: Yes Status: Acute Category: Medical Code(s): I73.9 - Peripheral vascular disease, unspecified (7) Nonhealing ulcer of heel Current visit: Yes Status: Acute Category: Medical Code(s): L97.409 - Non- pressure chronic ulcer of unspecified heel and midfoot with unspecified severity (8) Cardiomegaly Current visit: Yes Status: Acute Category: Medical Code(s): I51.7 - Cardiomegaly - Assessment and plan all Dx Assessment and Plan for all problems:: BASED ON LEVELS AND PATIENT FACTORS, RECOMMEND CHANGING GENTAMICIN INTERVAL TO Q24H AT THE SAME DOSE OF 240MG. PATIENT WILL BE GOING [facility] ON [facility] [facility] DAILY. WHILE PATIENT IS STILL ADMITTED, WILL CONTINUE TO MONITOR AND ADJUST DOSE APPROPRIATE. -CURT KRISHNAN, KAELAD
== END 2017-07-12 12:30 ==
LOC: ICU 12:55 → ER 12:55 → OBSVTOIN 15:56 → ICU 15:57 → 2ND 07-11 21:10
PROVIDERS: ADMIT Emergency Medicine; ATTEND Emergency Medicine

== ENCOUNTER 2017-07-15 14:00 | Outpatient (CLI) | payer MEDICARE, MEDICAID, SELFPAY ==
[2017-07-15 15:04] VITALS: BMI 23.8
--- NOTE | 2017-07-15 15:07 | XR_ITS ---
XR chest portable Ordering Physician: Jarret Dennison MD Patient Age: 67 years: Female HISTORY: ITS.REASON: picc placment. Pneumonia. Pleural Effusions. 3. chronic changes . TECHNIQUE: AP portable upright chest COMPARISON :07/09/2017 P CXR FINDINGS PICC line now in place entering from right arm transversing right subclavian with tip at SVC above the right atria. The lungs [place] are shown slight improvement. There is better expansion with clearing at bases bilaterally. This is most evident at the right lung base. Small residual right pleural effusion with blunting right CP angle persists At the left base there is slight better expansion. Likely resolving minimal airspace disease and vascular congestion bilaterally. Smaller left pleural effusion blunting left CP angle observed. The left upper lung field is clear. The right upper lung with area of fibrotic changes and scarring. The residual chronic pleural and parenchymal changes with slight honeycomb appearance again noted. These features were best evaluated on 07/11/2017 CT. IMPRESSION: PICC line satisfactory position. Enters from right arm with tip at SVC. Very slight improvement at lung [place] bilaterally since 07/09/2017 CXR.. COPD and extensive chronic changes again noted. Small bilateral pleural effusions are again noted with perhaps slight regression of the left pleural effusion since prior study
[2017-07-15 15:30] VITALS: BP 122/70; PULSE 66; RESP 20; TEMP 36.7; O2SAT 66
== END 2017-07-15 15:30 | disposition home or self-care (01) ==
LOC: INF 14:00
PROVIDERS: Family Provider Internal Medicine Adolescent Medicine; PCP Emergency Medicine; Visit Provider Emergency Medicine
DX: J18.8 Other pneumonia, unspecified organism (principal)
CPT/HCPCS: 36569; 71045; C1751

== ENCOUNTER → 2017-07-18 09:31 | Outpatient (CLI) | payer MEDICARE, MEDICAID, SELFPAY ==
--- NOTE | 2017-07-18 09:42 | US_ITS ---
US Arterial Ankle Brachial Ind INDICATION: Peripheral vascular disease, diabetes, edema, skin changes ORDERING PHYSICIAN: Tracey Duran PATIENT AGE: 67 years TECHNIQUE: Segmental pressures obtained of both right and left leg. These are compared to brachial blood pressure to yield index at each level sampled including summary GERRY. The data sheets from the procedure are available in PACS FINDINGS Rest study only performed today No prior studies available for comparison. Blood pressures reported are in millimeters mercury. RIGHT LEG GERRY = .7. Right TBI equals 0.6 Brachial BP: 158 Thigh BP: 156 Calf BP: 144 Ankle PT: 110 Ankle DP : 170 Digit =92 LEFT LEG GERRY = .9 Right TBI equals 0.7 Brachial BPD: 162 Thigh BP: 159 Calf BP: 128 Ankle PT:142 Ankle DP: 160 Digit = 111 Pulses and waveforms: Normal waveforms, diminished pulses right leg IMPRESSION: 1. Low right GERRY indicating moderate arterial disease. There may be a stenosis at the right distal SFA or popliteal region which may be confirmed with CT angiogram if clinically warranted 2. Low right TBI indicate mild small vessel disease. 3. Borderline low left TBI suggesting small vessel disease
== END ==
PROVIDERS: Family Provider Internal Medicine Adolescent Medicine; PCP Emergency Medicine; Visit Provider Nurse Practitioner Family
DX: I73.9 Peripheral vascular disease, unspecified (principal)
CPT/HCPCS: 93922

== ENCOUNTER 2018-03-05 15:40 | Inpatient (IN) ==
[2018-03-05 15:57] LABS: Basophils % 0.5 % (0.1-2.0); Eosinophils # 0.2 K/mm3 (0.0-0.4); Eosinophils % 2.2 % (0.1-12.0); Hematocrit 42.5 % (37.0-47.0); Hemoglobin 12.8 g/dL (12.2-16.2); Lymphocytes # 1.4 K/mm3 (0.7-4.5); Mean Corpuscular HGB Conc 30.1 g/dL (31.8-35.4); Mean Corpuscular Hemoglobin 28.9 pg (27.0-31.2); Mean Corpuscular Volume 95.8 fl (81-99); Mean Platelet Volume 6.7 fl (7.4-10.4); Monocytes # 0.8 K/mm3 (0.1-1.0); Monocytes % 10.3 % (1.7-9.3); Neutrophils # 5.2 K/mm3 (1.8-7.8); Neutrophils % 68.9 % (37.0-80.0); Platelet Count 230 K/mm3 (142-424); Red Blood Count 4.43 M/mm3 (4.20-5.40); Red Cell Distribution Width 15.7 % (11.5-17.5); White Blood Count 7.5 K/mm3 (4.8-10.8)
--- NOTE | 2018-03-05 16:23 | Emergency Department Note ---
ED Disposition Clinical Impression: Acute respiratory failure with hypercapnia Disposition: Still a Patient Condition on Discharge: Serious Referrals: Jarret Dennison MD [Primary Care Provider] - - Critical Care Critical Care Time: Yes Attestation: On 03/05/18, the high probability of a clinically significant, sudden or life threatening deterioration of the following system(s) required my full and direct attention, intervention and personal management. The time I documented below is in addition to time spent performing reported procedures but includes the following listed in this critical care notation. Total Critical Care Time: 40 Vital system(s) involved:: Respiratory Failure My critical care processes included: Assessment & monitoring of V/S, Initial and Re-exams, Data Review/Interpretation, Coordinating Care, Medication Orders and management, Documentation Medical Decision Making - José Miguel Inquiry Pt receiving controlled substance: No Vital Signs: 03/05/18 15:41 03/05/18 16:40 03/05/18 17:55 Temperature 97.8 F Temperature Source Oral Pulse Rate Pulse Rate [Left Radial] 92 H 79 78 Respiratory Rate 20 Blood Pressure [Right Arm] 106/53 L 134/88 95/46 L Blood Pressure Mean [Right Arm] 70 103 62 Blood Pressure Source [Right Arm] Automatic Cuff Automatic Cuff Automatic Cuff Blood Pressure Position [Right Arm] Sitting Sitting Sitting 02 Sat by Pulse Oximetry 98 98 Oxygen Delivery Method Nasal Cannula Oxygen Flow Rate (LPM) 2 03/05/18 18:23 03/05/18 18:37 03/05/18 18:41 Temperature Temperature Source Pulse Rate 88 Pulse Rate [Left Radial] 76 85 Respiratory Rate 22 Blood Pressure [Right Arm] 120/58 L 124/73 Blood Pressure Mean [Right Arm] 78 90 Blood Pressure Source [Right Arm] Automatic Cuff Automatic Cuff Blood Pressure Position [Right Arm] Sitting Sitting 02 Sat by Pulse Oximetry 99 94 L Oxygen Delivery Method Oxygen Flow Rate (LPM) 03/05/18 19:00 Temperature Temperature Source Pulse Rate Pulse Rate [Left Radial] 77 Respiratory Rate 18 Blood Pressure [Right Arm] 97/49 L Blood Pressure Mean [Right Arm] 65 Blood Pressure Source [Right Arm] Blood Pressure Position [Right Arm] 02 Sat by Pulse Oximetry 94 L Oxygen Delivery Method BiPAP Oxygen Flow Rate (LPM) - Lab Data Lab Results 03/05/18 15:45: WBC 7.5, RBC 4.43, Hgb 12.8, Hct 42.5, MCV 95.8, MCH 28.9, MCHC 30.1 L, RDW 15.7, Plt Count 230, MPV 6.7 L, Neut % (Auto) 68.9, Lymph % (Auto) 18.0, [place] % (Auto) 10.3 H, Eos % (Auto) 2.2, Baso % (Auto) 0.5, Neut # (Auto) 5.2, Lymph # (Auto) 1.4, [place] # (Auto) 0.8, Eos # (Auto) 0.2, Baso # (Auto) 0.0 03/05/18 15:45: Sodium 142, Potassium 4.1, Chloride 97 L, Carbon Dioxide 44 H*, Anion Gap 5.1, BUN 9, Creatinine 0.52 L, Estimated Creat Clear 39, Estimated GFR 118, Est GFR ( Amer) 142, Glucose 88, Calcium 9.1, Troponin I < 0.02 03/05/18 17:16: Urine Color Yellow, Urine Appearance Clear, Urine pH 6.0, Ur Specific [place] 1.025, Urine Protein Trace, Urine Glucose (UA) Trace, Urine Ketones Negative, Urine Blood Negative, Urine Nitrate Negative, Urine Bilirubin Negative, Urine Urobilinogen 1.0, Ur Leukocyte Esterase Negative, Urine RBC None, Urine WBC Occasional, Ur Squamous Epith Cells Occasional, Urine Bacteria Trace 03/05/18 18:23: Specimen Source Right radial, O2 % 36% ,4lpm nc, ABG pH 7.28 L, ABG pCO2 102.9 H, ABG pO2 73.7 L, ABG HCO3 46.7 H, ABG Total CO2 49.9 H, ABG O2 Saturation 94, ABG Base Excess 19.9 H, Jaylen Test Acceptable Result diagrams: 03/05/18 15:45 03/05/18 15:45 Orders (Tests/Meds): ED MEDICATIONS Generic Name Dose Route Start Last Admin Trade Name Freq PRN Reason Stop Dose Admin Albuterol/Ipratropium 3 ml 03/05/18 20:00 03/05/18 18:41 Duoneb 3ml Neb IH 04/04/18 19:59 3 ml QIDRT TRACEY Administration Sodium Chloride 1,000 mls @ 999 mls/hr 03/05/18 19:45 Sod Chlor 0.9% 1000ml Bag IV 03/05/18 20:45 .Q1H1M TRACEY Sodium Chloride 10 ml 03/05/18 15:46 Saline Flush 10ml Syringe IV 04/04/18 15:45 NEEDED PRN Maintain IV Site Discontinued Medications Generic Name Dose Route Start Last Admin Trade Name Keo PRN Reason Stop Dose Admin Methylprednisolone Sodium Succinate 125 mg 03/05/18 18:29 03/05/18 18:38 Solu-Medrol 125mg/2ml Vial IV 03/05/18 18:30 125 mg ONCE ONE Administration ORDERS Category Date Time Status Urinalysis and Microscopic Stat Lab 03/05/18 17:16 Ordered ABG [Arterial Blood Gas] Stat RT 03/05/18 18:23 Ordered - ECG Data Tracing #1 EKG interpreted by Jermain Chambers MD: Rhythm: sinus Rate: 83 [place]: normal Ectopy: none Conduction: Incomplete right bundle branch block ST Segment Changes: none T Wave Changes: none Q Waves: none No evidence of acute ischemia or injury - Physician Consults Physician Consulted: Jesi present Time: 19:54 Reason -: Admission Comment/Response: Agrees to admit the patient to the hospital. We discussed the patient's clinical information, including history, exam, laboratory and radiology results and ED course. Per hospital procedure, I will write temporary bridge inpatient orders on the patient. Specific orders requested by the admitting physician: Continue BiPAP, nebulizer treatments, steroids. ABGs in the morning. General Adult HPI - General Chief complaint: Weakness Stated complaint: sob Time Seen by Provider: 03/05/18 18:05 Mode of Arrival: EMS Limitations: No Limitations Description of Symptoms (Recalled from ER Triage Doc. by RN): to ed per squad with c/o cough and generalized weakness x 1 week pt wears 02 08/10 pt denies chest pain, fever, nausea, vomiting. cpta IV - History of Present Illness HPI narrative: Brought in by ambulance. Poor historian. Seems confused and/or hard of hearing. States that she is sick to her stomach and has a cough. She feels generally weak. Denies vomiting or diarrhea. Denies any pain. Denies fever. Denies shortness of breath. - Related Data Home Medications Medication Instructions Recorded Confirmed No Known Home Medications 03/05/18 03/05/18 Allergies Allergy/AdvReac Type Severity Reaction Status Date / Time No Known Allergies Allergy Verified 02/24/18 12:48 [facility] History - Hepatitis A Screen Drug use history?: No High risk sexual behaviors?: No History of sexually transmitted infection?: No Currently employed?: No Childcare worker?: No Do you have indoor plumbing?: Yes Do you have electricity?: Yes Attestation statement:: This patient has been screened for Hepatitis A risk factors. I have reviewed the patient's past medical history: Yes Medical History: Reports:: Anxiety, Chronic Obstructive Pulmonary Disease (COPD), Diabetes Mellitus Type 2, Hyperlipidemia, Hypertension Denies:: Cancer, Diabetes Mellitus Type 1, MRSA Other Medical History: Reports: Arthritis Other Surgeries: Yes: Colonoscopy Amputation: No Fractures: No - Social History Smoking Status: Current some day smoker Tobacco Type: cigarettes # Packs/Day (cigarettes): 4 #Yrs smoked (if former smoker): 20 Alcohol Intake: never Alcohol Intake Frequency:: other Substance Use Type: denies use Occupational Status: retired Housing: apartment Household Members: none - Psychiatric History Expresses thoughts of harming self/others: None Suicide Plan Description: No Plan Pschychiatric History:: Reports:: Anxiety, Bipolar Disorder Family Hx:: Unable to obtain ROS Obtained: Yes All systems reviewed & no additional complaints - Constitutional Constitutional: Denies fever(s) - Cardiovascular Cardiovascular: Denies chest pain - Respiratory Respiratory: Yes cough, No dyspnea - Gastrointestinal Gastrointestingal: Reports: nausea. Denies: abdominal pain, diarrhea, vomiting - Neurologic Neurologic: Denies headache(s) Physical Exam - General General appearance: other Comment: Drowsy. Does awaken to answer questions, but then immediately closes her eyes. - Head Head exam: atraumatic, normocephalic - Eye Eye exam: Present: PERRL, EOMI - ENT ENT exam: Present: other (Lips dry) - Neck Neck exam: Present: normal inspection, full ROM, trachea midline. Absent: meningismus - Chest Chest inspection: Present: normal inspection, symmetric chest wall rise - Respiratory Respiratory exam: Present: normal lung sounds bilaterally. Absent: respiratory distress - Cardiovascular Cardiovascular exam: Present: regular rate, normal rhythm, normal heart sounds - Abdominal Exam Abdominal exam: Present: soft. Absent: distention, tenderness, guarding, rebound - Extremities Exam Extremities exam: Present: normal inspection, full ROM. Absent: tenderness - Neurological Exam Neurological exam: Present: CN II-XII intact. Absent: oriented X3 (Oriented to person and place, when asked the date she initially says "" and then says "Saturday". It is actually Saturday.), motor sensory deficit - Skin Skin exam: Present: warm, dry - Lymphatic Lymphatic Findings: no adenopathy
[2018-03-05 16:24] LABS: Anion Gap 5.1 mEq/L (5-15); Blood Urea Nitrogen 9 mg/dL (7-18); Calcium 9.1 mg/dL (8.5-10.1); Chloride 97 mmol/L (98-107); Glucose 88 mg/dL (74-106); Potassium 4.1 mmoL/L (3.5-5.1); Sodium 142 mmol/L (136-145)
[2018-03-05 16:28] LABS: Carbon Dioxide 44 mmol/L (21.0-32.0)
[2018-03-05 17:49] LABS: Microscopic, Urine URINE MICROSCOPIC (MICROSCOPIC)
[2018-03-05 18:00] LABS: Appearance,Urine CLEAR (Clear); Blood, Urine Negative (Negative); Color,Urine YELLOW (Yellow); Glucose,Urine (UA) TRACE (Negative); Ketones,Urine Negative (Negative); Leukocyte Esterase,Urine Negative (Negative); Protein,Urine TRACE (Negative); Specific Gravity, Urine 1.025 (1.005-1.030)
[2018-03-05 18:03] LABS: Bilirubin,Urine Negative (Negative)
[2018-03-05 18:15] LABS: Bacteria,Urine Trace /lpf; Squamous Epithelial Cell,Urine Occasional #/hpf (0-5); WBC,Urine Occasional #/hpf (0-3)
[2018-03-05 18:23] LABS: ABG Base Excess 19.9 mmol/L (-2.4-2.3); ABG HCO3 46.7 mmhg (22.0-26.0); ABG Oxygen Saturation 94 % (90-100); ABG PH 7.28 mmol/L (7.35-7.45); ABG PO2 73.7 mmhg (80-100); ABG TCO2 49.9 mmhg (23-27)
[2018-03-05 18:25] LABS: Allen's Test Acceptable
[2018-03-05 18:26] LABS: ABG PCO2 102.9 mmhg (35.0-45.0)
[2018-03-06 07:00] LABS: ABG Base Excess 13.4 mmol/L (-2.4-2.3); ABG Oxygen Saturation 92 % (90-100); ABG PH 7.35 mmol/L (7.35-7.45); ABG PO2 62.1 mmhg (80-100); ABG TCO2 41.3 mmhg (23-27)
[2018-03-06 07:02] LABS: Oxygen 4 LPM %
[2018-03-06 07:03] LABS: Allen's Test ACCEPTABLE
[2018-03-06 07:04] LABS: ABG PCO2 72.8 mmhg (35.0-45.0)
--- NOTE | 2018-03-06 07:46 | Pharmacy Consult Notes ---
[facility] Pharmacy VTE Monitoring - Patient Demographics Admission date: 03/05/18 Report Date: 03/06/18 Time: 07:46 Allergies/Adverse Reactions: Patient Allergies No Known Allergies Allergy (Verified 02/24/18 12:48) Height: 1.52 m Weight: 52.6 kg Patient Problems: Current Active Problems Acute respiratory failure with hypercapnia (Acute) - VTE Risk Labs: VTE Related Lab Results Hgb 12.8 g/dL (12.2-16.2) 03/05/18 15:45 Hct 42.5 % (37.0-47.0) 03/05/18 15:45 Plt Count 230 K/mm3 (142-424) 03/05/18 15:45 BUN 9 mg/dL (7-18) 03/05/18 15:45 Creatinine 0.52 mg/dL (0.55-1.02) L 03/05/18 15:45 Estimated Creat Clear 39 mL/min (50-200) 03/05/18 15:45 VTE Score: 5 VTE Risk Level: Low Risk - Prophylaxis VTE Prophylaxis Ordered?: Yes Types of VTE Prophylaxis: TEDS Knee High Location of Applied Device: Bilateral Lower Extremeties - VTE Diagnosis Confirmed Treatment or plan recommended: Continue Current Treatment
--- NOTE | 2018-03-06 09:51 | History & Physical Report ---
*Admission Date: 03/05/18 *Chief complaint: sob *History of present illness: 68 yr old female presents to ed via ambulance with c/o of sob. Hx of copd. Pt states she has been ill for a few days and increase sob. pt states she has been coughing up thick green sputum. Pt admitted for pneumonia, placed on bipap [facility] History I have reviewed the patient's past medical history: Yes Medical History: Reports:: Anxiety, Chronic Obstructive Pulmonary Disease (COPD), Hyperlipidemia, Hypertension Denies:: Cancer, Diabetes Mellitus Type 1, Diabetes Mellitus Type 2 (Pt states she is not a diabetic), MRSA Other Medical History: Reports: Arthritis, Sinus Problems Other Surgeries: Yes: Colonoscopy Amputation: No Fractures: No - *Social History Educational Level: Attended Grade School Smoking Status: Former smoker Tobacco Type: cigarettes # Packs/Day (cigarettes): 2 #Yrs smoked (if former smoker): 40 Alcohol Intake: former Alcohol Intake Frequency:: other Substance Use Type: denies use Occupational Status: retired Housing: apartment Household Members: none - Psychiatric History Expresses thoughts of harming self/others: None Suicide Plan Description: No Plan Pschychiatric History:: Reports:: Anxiety, Bipolar Disorder *Family Hx:: Unable to obtain Review of Systems - Constitutional Denies body ache(s), Denies fever(s) - Eyes Denies change in vision - ENT Denies change in voice - *Cardiovascular Reports shortness of breath, Reports shortness of breath with activity - *Respiratory Reports change in phlegm color, Reports chest congestion, Reports cough, Reports shortness of breath, Reports shortness of breath with activity, Reports excessive phlegm production - *Gastrointestinal Denies heartburn - *Genitourinary Denies urinary incontinence - *Musculoskeletal Denies neck pain - Integumentary/Breasts Denies rash - *Neurologic Denies headache(s) - Psychiatric Denies anxiety - Endocrine Denies flushing - Hematologic/Lymphatic Denies enlarged lymph nodes - Allergic/Immunologic Denies lip swelling Meds Home Medications Medication Instructions Recorded Confirmed Type Fluticasone/Vilanterol [Breo 1 puff INHALATION DAILY 03/06/18 03/06/18 History Ellipta 100-25 Mcg INH] Triamcinolone Acetonide 1 gm TOPICAL BID 03/06/18 03/06/18 History Allergies Allergy/AdvReac Type Severity Reaction Status Date / Time No Known Allergies Allergy Verified 02/24/18 12:48 Exam Vital signs and Labs for Last 24 Hours: Temp Pulse Resp BP Pulse Ox 98.3 F 91 H 23 115/55 L 89 L 03/06/18 07:54 03/06/18 07:54 03/06/18 07:54 03/06/18 07:54 03/06/18 08:00 Laboratory Results - last 24 hr 03/05/18 15:45: WBC 7.5, RBC 4.43, Hgb 12.8, Hct 42.5, MCV 95.8, MCH 28.9, MCHC 30.1 L, RDW 15.7, Plt Count 230, MPV 6.7 L, Neut % (Auto) 68.9, Lymph % (Auto) 18.0, [place] % (Auto) 10.3 H, Eos % (Auto) 2.2, Baso % (Auto) 0.5, Neut # (Auto) 5.2, Lymph # (Auto) 1.4, [place] # (Auto) 0.8, Eos # (Auto) 0.2, Baso # (Auto) 0.0 03/05/18 15:45: Sodium 142, Potassium 4.1, Chloride 97 L, Carbon Dioxide 44 H*, Anion Gap 5.1, BUN 9, Creatinine 0.52 L, Estimated Creat Clear 39, Estimated GFR 118, Est GFR ( Amer) 142, Glucose 88, Calcium 9.1, Troponin I < 0.02 03/05/18 17:16: Urine Color Yellow, Urine Appearance Clear, Urine pH 6.0, Ur Specific [place] 1.025, Urine Protein Trace, Urine Glucose (UA) Trace, Urine Ketones Negative, Urine Blood Negative, Urine Nitrate Negative, Urine Bilirubin Negative, Urine Urobilinogen 1.0, Ur Leukocyte Esterase Negative, Urine RBC None, Urine WBC Occasional, Ur Squamous Epith Cells Occasional, Urine Bacteria Trace 03/05/18 18:23: Specimen Source Right radial, O2 % 36% ,4lpm nc, ABG pH 7.28 L, ABG pCO2 102.9 H, ABG pO2 73.7 L, ABG HCO3 46.7 H, ABG Total CO2 49.9 H, ABG O2 Saturation 94, ABG Base Excess 19.9 H, Jaylen Test Acceptable 12/20/18 07:01: Specimen Source L. radial, O2 % 4 lpm, ABG pH 7.35, ABG pCO2 72.8 H, ABG pO2 62.1 L, ABG HCO3 39.0 H, ABG Total CO2 41.3 H, ABG O2 Saturation 92, ABG Base Excess 13.4 H, Jaylen Test Acceptable I & O for Last 24 hours: Intake & Output 03/03/18 03/04/18 03/05/18 03/06/18 11:59 11:59 11:59 11:59 Intake Total 1212 / 1212 Balance 1212 / 1212 Weight 115 lb 15.41 oz - *Routine HEENT Exam Head: Present: normocephalic Eye: Present: PERRL ENT: Present: mucous membranes moist - *Routine Neck Exam Present: supple. Absent: lymphadenopathy - *Routine Respiratory Exam Present: decreased breath sounds, rhonchi, wheezes, diminished air movement - *Routine Cardiovascular Exam Present: RRR - *Routine Abdominal Exam Present: soft, normoactive bowel sounds. Absent: tenderness - *Routine Extremities Exam Absent: cyanosis, clubbing, edema - *Routine Skin Exam Present: warm. Absent: rash - *Routine Neurological Exam Present: alert, oriented X3 - Routine Psychiatric Exam Present: normal affect Assessment and Plan - Assessment and plan all Dx Assessment and Plan for all problems:: Rounded with Dr. Dennison all orders per Jesi
--- NOTE | 2018-03-07 09:01 | Discharge Summary ---
General - General Admission date:: 03/05/18 Discharge date: 03/07/18 HPI HPI: 68 yr old female presents to ed via ambulance with c/o of sob. Hx of copd. Pt states she has been ill for a few days and increase sob. pt states she has been coughing up thick green sputum. Pt admitted for pneumonia, placed on bipap Hospital Course Hospital Course: chest x ray:COPD with chronic changes with developing right apical lucency possibly related to cavitation with increased density in the right upper lobe which could be due to fibrotic change with superimposed inflammatory/infectious changes. Objective Vital signs: Temp Pulse Resp BP Pulse Ox 97.3 F L 77 20 114/69 89 L 03/07/18 08:00 03/07/18 08:00 03/07/18 08:00 03/07/18 08:00 03/07/18 08:00 no acute distress - *Routine HEENT Exam Head: Present: normocephalic Eye: Present: PERRL ENT: Present: mucous membranes moist - *Routine Respiratory Exam Present: CTA bilaterally, wheezes - *Routine Cardiovascular Exam Present: RRR - *Routine Abdominal Exam Present: soft, normoactive bowel sounds - *Routine Skin Exam Present: intact - *Routine Neurological Exam Present: alert, oriented X3 - Routine Psychiatric Exam Present: normal affect, normal thought process Results Labs on day of discharge: Preliminary micro results at discharge 03/06/18 06:40 Sputum Culture - Preliminary Sputum - Expectorated Sputum - Additional Comments Rounded with Dr. Dennison all orders per Jesi Patient's feeling today and requests to go home with sister. Patient will be discharged home we will add increase to her COPD regimen. Will go home on Zithromax and Keflex for double coverage. Discharge Plan - Patient Discharge Instructions ACTIVITY: Continue current activity DIET: continue same diet - Follow up Plan Follow up with: Sapna Littlejohn PA [Physician Crew Boss] - 03/13/18 Disposition: Home, Self-[facility] Medications: Home Medications Medication Instructions Recorded Confirmed Type Fluticasone/Vilanterol [Breo 1 puff INHALATION DAILY 03/06/18 03/06/18 History Ellipta 100-25 Mcg INH] Triamcinolone Acetonide 1 gm TOPICAL BID 03/06/18 03/06/18 History Azithromycin [Zithromax 250mg 250 mg PO DIRECTED #6 tab 03/07/18 Rx tab] Umeclidinium [place] [Incruse 62.5 mcg IH DAILY 30 Days #1 03/07/18 Rx Ellipta] [facility] cephALEXin [Keflex 500mg Cap] 500 mg PO BID 10 Days #20 cap 03/07/18 Rx predniSONE [Prednisone 20mg 20 mg PO BID #10 tab 03/07/18 Rx Tab] Prescriptions/Medication Reconciliation: New cephALEXin [Keflex 500mg Cap] 500 mg PO BID 10 Days #20 cap predniSONE [Prednisone 20mg Tab] 20 mg PO BID #10 tab Azithromycin [Zithromax 250mg tab] 250 mg PO DIRECTED #6 tab Umeclidinium [place] [Incruse Ellipta] 62.5 mcg IH DAILY 30 Days #1 [facility] Continue Triamcinolone Acetonide 1 gm TOPICAL BID Fluticasone/Vilanterol [Breo Ellipta 100-25 Mcg INH] 1 puff INHALATION DAILY
== END 2018-03-07 10:31 | disposition home or self-care (01) ==
LOC: ER 15:40 → 2ND 15:40 → OBSVTOIN 21:07 → 2ND 21:08
PROVIDERS: ADMIT Emergency Medicine; ATTEND Emergency Medicine

== ENCOUNTER 2018-05-12 14:01 | Inpatient (IN) ==
[2018-05-12 14:20] LABS: Basophils # 0.1 K/mm3 (0-0.2); Basophils % 0.6 % (0.1-2.0); Eosinophils # 0.1 K/mm3 (0.0-0.4); Eosinophils % 0.8 % (0.1-12.0); Hematocrit 44.9 % (37.0-47.0); Hemoglobin 13.4 g/dL (12.2-16.2); Lymphocytes # 2.2 K/mm3 (0.7-4.5); Lymphocytes % 29.3 % (10-50); Mean Corpuscular HGB Conc 29.9 g/dL (31.8-35.4); Mean Corpuscular Hemoglobin 31.3 pg (27.0-31.2); Mean Corpuscular Volume 104.4 fl (81-99); Mean Platelet Volume 7.3 fl (7.4-10.4); Monocytes # 0.7 K/mm3 (0.1-1.0); Monocytes % 8.9 % (1.7-9.3); Neutrophils # 4.5 K/mm3 (1.8-7.8); Neutrophils % 60.4 % (37.0-80.0); Platelet Count 143 K/mm3 (142-424); Red Cell Distribution Width 13.4 % (11.5-17.5); White Blood Count 7.4 K/mm3 (4.8-10.8)
[2018-05-12 14:42] LABS: ABG Base Excess 22.4 mmol/L (-2.4-2.3); ABG HCO3 50.2 mmhg (22.0-26.0); ABG Oxygen Saturation 81 % (90-100); ABG PH 7.21 mmol/L (7.35-7.45); ABG TCO2 54.2 mmhg (23-27)
--- NOTE | 2018-05-12 14:42 | Emergency Department Note ---
ED Disposition Condition on Discharge: Fair Time of Disposition: 21:22 - Critical Care Critical Care Time: No <Jarret Henriquez - Last Filed: 05/12/18 21:21> <Jarret Dennison - Last Filed: 05/13/18 11:52> Clinical Impression: COPD exacerbation, Respiratory failure, Diabetes mellitus type 2 in nonobese Disposition: Admitted As Inpatient Attestation: On 05/12/18, the high probability of a clinically significant, sudden or life threatening deterioration of the following system(s) required my full and direct attention, intervention and personal management. The time I documented below is in addition to time spent performing reported procedures but includes the following listed in this critical care notation. Medical Decision Making - Medical Records Medical records reviewed: Yes: I reviewed the patient's medical records. - José Miguel Inquiry Pt receiving controlled substance: No José Miguel was queried for this patient: No - Lab Data Lab results reviewed: Yes: I reviewed the patient's lab results. Result diagrams: 05/12/18 14:12 05/12/18 14:12 - Reevaluation(s) Time: 16:35 <Jarret Henriquez - Last Filed: 05/12/18 21:21> - Lab Data Result diagrams: 05/13/18 08:40 05/13/18 08:40 <Jarret Dennison - Last Filed: 05/13/18 11:52> Vital Signs: 05/12/18 14:01 05/12/18 14:13 05/12/18 15:11 Temperature 97.4 F L Temperature Source Temporal Artery Scan Pulse Rate Pulse Rate [Right Radial] 102 H 77 Respiratory Rate 30 H Blood Pressure Blood Pressure [Right Arm] 128/51 L 108/49 L Blood Pressure Mean [Right Arm] 76 68 Blood Pressure Source Blood Pressure Source [Right Arm] Automatic Cuff Automatic Cuff Blood Pressure Position Blood Pressure Position [Right Arm] Sitting Sitting 02 Sat by Pulse Oximetry 98 96 95 Oxygen Delivery Method Aerosol Mask Nasal Cannula Oxygen Flow Rate (LPM) 3 05/12/18 15:25 05/12/18 16:01 05/12/18 17:23 Temperature Temperature Source Pulse Rate 81 Pulse Rate [Right Radial] 95 H 86 Respiratory Rate 30 H 28 H Blood Pressure Blood Pressure [Right Arm] 102/43 L 95/46 L Blood Pressure Mean [Right Arm] 62 62 Blood Pressure Source Blood Pressure Source [Right Arm] Automatic Cuff Automatic Cuff Blood Pressure Position Blood Pressure Position [Right Arm] Sitting Sitting 02 Sat by Pulse Oximetry 97 91 L 91 L Oxygen Delivery Method BiPAP BiPAP Oxygen Flow Rate (LPM) 05/12/18 18:45 05/12/18 18:50 05/12/18 19:18 Temperature Temperature Source Pulse Rate 82 Pulse Rate [Right Radial] 80 Respiratory Rate Blood Pressure Blood Pressure [Right Arm] 95/44 L Blood Pressure Mean [Right Arm] 61 Blood Pressure Source Blood Pressure Source [Right Arm] Automatic Cuff Blood Pressure Position Blood Pressure Position [Right Arm] Sitting 02 Sat by Pulse Oximetry 95 93 L Oxygen Delivery Method BiPAP Oxygen Flow Rate (LPM) 05/12/18 21:25 05/12/18 21:58 Temperature 98.1 F Temperature Source Temporal Artery Scan Pulse Rate 76 Pulse Rate [Right Radial] 76 Respiratory Rate 22 22 Blood Pressure 100/45 L Blood Pressure [Right Arm] 100/45 L Blood Pressure Mean [Right Arm] 63 Blood Pressure Source Automatic Cuff Blood Pressure Source [Right Arm] Automatic Cuff Blood Pressure Position Sitting Blood Pressure Position [Right Arm] Supine 02 Sat by Pulse Oximetry 92 L Oxygen Delivery Method BiPAP Oxygen Flow Rate (LPM) - Lab Data Lab Results 05/12/18 14:11: Specimen Source L brachial, O2 % 3lpm, ABG pH 7.21 L*, ABG pCO2 128.5 H, ABG pO2 43.5 L, ABG HCO3 50.2 H, ABG Total CO2 54.2 H, ABG O2 Saturation 81 L*, ABG Base Excess 22.4 H 05/12/18 14:12: WBC 7.4, RBC 4.30, Hgb 13.4, Hct 44.9, MCV 104.4 H, MCH 31.3 H, MCHC 29.9 L, RDW 13.4, Plt Count 143, MPV 7.3 L, Neut % (Auto) 60.4, Lymph % (Auto) 29.3, Boyd % (Auto) 8.9, Eos % (Auto) 0.8, Baso % (Auto) 0.6, Neut # (Auto) 4.5, Lymph # (Auto) 2.2, Boyd # (Auto) 0.7, Eos # (Auto) 0.1, Baso # (Auto) 0.1 05/12/18 14:12: Sodium 144, Potassium 4.9, Chloride 101, Carbon Dioxide 44 H*, Anion Gap 3.9 L, BUN 20 H D, Creatinine 0.50 L D, Estimated Creat Clear 41, Estimated GFR 123, Est GFR ( Amer) 149 D, Glucose 139 H, Calcium 9.2, Total Bilirubin 0.3, AST 7 L D, ALT 16, Alkaline Phosphatase 59, Troponin I < 0.02, Total Protein 7.4, Albumin 3.6, Globulin 3.8 H, Albumin/Globulin Ratio 0.9 L 05/12/18 14:45: Lactate 1.1 05/12/18 17:31: Specimen Source Right radial, O2 % 40, ABG pH 7.24 L*, ABG pCO2 124.8 H, ABG pO2 65.5 L, ABG HCO3 51.7 H, ABG Total CO2 55.5 H, ABG O2 Saturation 93, ABG Base Excess 24.2 H, Jaylen Test Acceptable, Vent Rate 22, Tidal Volume Bipap 14/6 05/12/18 19:05: Urine Color Yellow, Urine Appearance Clear, Urine pH 6.0, Ur Specific [place] >= 1.030, Urine Protein Negative, Urine Glucose (UA) Negative, Urine Ketones Negative, Urine Blood Negative, Urine Nitrate Negative, Urine Bilirubin Negative, Urine Urobilinogen 0.2, Ur Leukocyte Esterase Negative, Urine WBC 5-10, Ur Squamous Epith Cells 3-5, Urine Bacteria 2+, Urine Mucus 4+ 05/12/18 19:45: Specimen Source Right radial, O2 % 50, ABG pH 7.22 L*, ABG pCO2 142.0 H, ABG pO2 73.0 L, ABG HCO3 57.3 H, ABG Total CO2 61.7 H, ABG O2 Saturation 95, ABG Base Excess 29.7 H, Jaylen Test Acceptable, Vent Rate 22, Tidal Volume Bipap 14/6 Orders (Tests/Meds): ED MEDICATIONS Generic Name Dose Route Start Last Admin Trade Name Freq PRN Reason Stop Dose Admin Acetaminophen 650 mg 05/12/18 21:48 Acetaminophen 325mg Tab PO 06/11/18 21:47 Q4HP PRN As Needed for Fever or Pain Sodium Chloride 1,000 mls @ 100 mls/hr 05/12/18 21:48 05/13/18 08:37 Sod Chlor 0.9% 1000ml Bag IV 06/11/18 21:47 100 mls/hr .Q10H TRACEY Administration Ceftriaxone Sodium 1 gm/ 50 mls @ 100 mls/hr 05/13/18 17:00 Sodium Chloride IV 05/27/18 16:59 1700 TRACEY Protocol Azithromycin 500 mg/ Sodium 250 mls @ 250 mls/hr 05/13/18 21:00 Chloride IV 05/27/18 20:59 Q24H [facility] Methylprednisolone Sodium Succinate 80 mg 05/12/18 23:00 05/13/18 10:28 Solu-Medrol 125mg/2ml Vial IV 06/11/18 22:59 80 mg Q6 TRACEY Administration Nicotine 21 mg 05/13/18 09:23 Nicoderm 21mg/24hr Patch TD 06/12/18 09:22 DAILYP PRN Nicotine Cravings Ondansetron HCl 4 mg 05/12/18 21:48 Zofran 4mg/2ml Vial IV 06/11/18 21:47 Q8HP PRN Nausea Pantoprazole Sodium 40 mg 05/13/18 09:00 05/13/18 08:36 Protonix 40mg Tablet PO 06/12/18 08:59 40 mg DAILY TRACEY Administration Sodium Chloride 10 ml 05/12/18 21:48 05/12/18 23:07 Saline Flush 10ml Syringe IV 06/11/18 14:10 10 ml NEEDED PRN Administration Maintain IV Site Sodium Chloride 10 ml 05/12/18 21:48 Saline Flush 10ml Syringe IV 06/11/18 21:47 NEEDED PRN Maintain IV Site Sodium Chloride 3 ml 05/12/18 22:04 Sodium Chloride 3% 15ml [facility] 06/11/18 22:03 ONCE PRN INDUCE SPUTUM [employer]LECTION Discontinued Medications Generic Name Dose Route Start Last Admin Trade Name Freq PRN Reason Stop Dose Admin Albuterol Sulfate 2.5 mg 05/12/18 18:29 05/12/18 18:45 Albuterol 0.083% 2.5mg/3ml [facility] 05/12/18 18:30 2.5 mg ONCE ONE Administration Albuterol/Ipratropium 3 ml 05/12/18 14:49 05/12/18 15:24 Duoneb 3ml [facility] 05/12/18 14:50 3 ml ONCE ONE Administration Furosemide 40 mg 05/12/18 18:25 05/12/18 19:11 Lasix 40mg/4ml Vial IV 05/12/18 18:26 40 mg ONCE ONE Administration Azithromycin 500 mg/ Sodium 250 mls @ 250 mls/hr 05/12/18 21:48 05/12/18 22:32 Chloride IV 05/12/18 21:49 250 mls/hr ONCE ONE Administration Protocol Ceftriaxone Sodium 1 gm/ 50 mls @ 100 mls/hr 05/12/18 21:48 05/12/18 22:58 Sodium Chloride IV 05/26/18 21:47 100 mls/hr Q24H TRACEY Administration Protocol Methylprednisolone Sodium Succinate 250 mg 05/12/18 14:48 05/12/18 15:25 Solu-Medrol 125mg/2ml Vial IV 05/12/18 14:49 250 mg ONCE ONE Administration Sodium Chloride 10 ml 05/12/18 14:11 05/12/18 19:11 Saline Flush 10ml Syringe IV 06/11/18 14:10 10 ml NEEDED PRN Administration Maintain IV Site ORDERS Category Date Time Status UA [Urinalysis and Microscopic] Stat Lab 05/12/18 19:05 Ordered Blood Culture Stat Micro 05/12/18 14:56 Ordered Urine Culture Stat Micro 05/12/18 19:05 Received - Reevaluation(s) Reevaluation #1: speaking in full sentences, comfortably, bipap seems to agree with her (Jarret Henriquez) General Adult HPI - General Mode of Arrival: EMS Limitations: No Limitations Description of Symptoms (Recalled from ER Triage Doc. by RN): Pt c/o SOA. PT is alertable but lethargic in nature. Pt is oriented x3 when asked questions <Jarret Henriquez - Last Filed: 05/12/18 21:21> <Jarret Dennison - Last Filed: 05/13/18 11:52> - General Chief complaint: Shortness of Breath/Dyspnea Stated complaint: SOA Time Seen by Provider: 05/12/18 14:39 - History of Present Illness HPI narrative: Found at her apt by family. She lives alone. Marked dyspnea, obtundation, mental status changes (Jarret Henriquez) Found at her apt by family. She lives alone. Marked dyspnea, obtundation, mental status changes (Jarret Dennison) - Related Data Home Medications Medication Instructions Recorded Confirmed Fluticasone/Vilanterol [Breo 1 puff INHALATION DAILY 05/13/18 05/13/18 Ellipta 100-25 Mcg INH] Umeclidinium [place] [Incruse 1 puff IH DAILY 05/13/18 05/13/18 Ellipta] Previous Rx's Medication Instructions Recorded diazepam 5 mg tablet 5 mg PO TID #90 tab 03/12/18 Allergies Allergy/AdvReac Type Severity Reaction Status Date / Time orange juice Allergy Mild Rash Verified 05/13/18 10:17 [facility] History - Hepatitis A Screen Drug use history?: No High risk sexual behaviors?: No History of sexually transmitted infection?: No Currently employed?: No Childcare worker?: No Do you have indoor plumbing?: Yes Do you have electricity?: Yes I have reviewed the patient's past medical history: Yes Medical History: Reports:: Anxiety, Chronic Obstructive Pulmonary Disease (COPD), Hyperlipidemia, Hypertension Denies:: Cancer, Diabetes Mellitus Type 1, Diabetes Mellitus Type 2, MRSA Other Medical History: Reports: Arthritis, Sinus Problems Other Surgeries: Yes: Colonoscopy Amputation: No Fractures: No - Social History Smoking Status: Current every day smoker Tobacco Type: cigarettes # Packs/Day (cigarettes): 2 #Yrs smoked (if former smoker): 40 Alcohol Intake: former Alcohol Intake Frequency:: other Substance Use Type: denies use Occupational Status: retired Housing: apartment Household Members: none - Psychiatric History Expresses thoughts of harming self/others: None Suicide Plan Description: No Plan Pschychiatric History:: Reports:: Anxiety, Bipolar Disorder Family Hx:: Unable to obtain <Jarret Henriquez - Last Filed: 05/12/18 21:21> - Hepatitis A Screen Attestation statement:: This patient has been screened for Hepatitis A risk factors. - Constitutional Constitutional: Reports system reviewed and no additional complaints, except as docu, Denies chills, Reports lethargy, Reports malaise - Eyes Eyes: Denies eye discharge - ENT Ears, Nose, Mouth, and Throat: Denies sore throat, Denies throat swelling - Cardiovascular Cardiovascular: Reports system reviewed and no additional complaints, except as docu, Denies chest pain, Denies chest pain at rest, Denies chest pain with activity, Reports diaphoresis, Reports dyspnea, Reports dyspnea on exertion - Respiratory Respiratory: Yes system reviewed and no additional complaints, except as docu, Yes chest congestion, Yes cough, Yes dyspnea, Yes dyspnea on exertion - Gastrointestinal Gastrointestingal: Reports: abdominal pain. Denies: system reviewed and no additional complaints, except as docu, diarrhea, nausea, vomiting - Genitourinary Female Genitourinary: Reports system reviewed and no additional complaints, except as docu, Denies dysuria - Musculoskeletal Musculoskeletal: Reports muscle weakness, Reports muscle aches - Integumentary/Breasts Skin/Breast: Reports system reviewed and no additional complaints, except as docu, Denies rash, Denies skin pain - Neurologic Neurologic: Reports system reviewed and no additional complaints, except as docu, Reports abnormal speech, Denies focal weakness, Denies syncope, Reports weakness - Hematologic/Lymphatic Henatologic/Lymphatic: Denies easy bleeding, Denies easy bruising, Denies lymphadenopathy <Jarret Henriquez - Last Filed: 05/12/18 21:21> Physical Exam - General General appearance: alert, in no apparent distress, lethargic - Head Head exam: atraumatic, normocephalic, normal inspection - Eye Eye exam: Present: normal appearance, PERRL, EOMI - ENT ENT exam: Present: normal exam, normal oropharynx, mucous membranes moist, TM's normal bilaterally, normal external ear exam - Neck Neck exam: Present: normal inspection - Respiratory Respiratory exam: Present: respiratory distress, wheezes, accessory muscle use, prolonged expiratory phase, other (dec breath sounds bilaterally, wheezes). Absent: normal lung sounds bilaterally - Cardiovascular Cardiovascular exam: Present: regular rate, normal rhythm. Absent: JVD - Abdominal Exam Abdominal exam: Present: soft, normal bowel sounds. Absent: distention, tenderness, guarding - Back Exam Back exam: Present: normal inspection. Absent: tenderness - Neurological Exam Neurological exam: Present: CN II-XII intact. Absent: oriented X3, normal gait - Skin Skin exam: Present: warm, dry, intact, normal color - Lymphatic Lymphatic Findings: no adenopathy <Jarret Henriquez - Last Filed: 05/12/18 21:21> - General Comment: near obtunded, respiratory effort is extremely weak (Jarret Henriquez)
[2018-05-12 14:43] LABS: Oxygen 3LPM %
[2018-05-12 14:44] LABS: ABG PCO2 128.5 mmhg (35.0-45.0); ABG PO2 43.5 mmhg (80-100)
[2018-05-12 14:49] LABS: Alanine Aminotransferase 16 U/L (12-78); Albumin Level 3.6 gm/dL (3.4-5.0); Albumin/Globulin Ratio 0.9 (1.1-1.8); Alkaline Phosphatase 59 U/L (46-116); Anion Gap 3.9 mEq/L (5-15); Aspartate Amino Transferase 7 U/L (15-37); Bilirubin,Total 0.3 mg/dL (0.2-1.0); Blood Urea Nitrogen 20 mg/dL (7-18); Calcium 9.2 mg/dL (8.5-10.1); Chloride 101 mmol/L (98-107); Globulin 3.8 gm/dl (1.3-3.2); Glucose 139 mg/dL (74-106); Potassium 4.9 mmoL/L (3.5-5.1); Sodium 144 mmol/L (136-145); Total Protein,Serum 7.4 gm/dL (6.4-8.2)
[2018-05-12 14:52] LABS: Carbon Dioxide 44 mmol/L (21.0-32.0)
[2018-05-12 17:42] LABS: ABG Base Excess 24.2 mmol/L (-2.4-2.3); ABG HCO3 51.7 mmhg (22.0-26.0); ABG Oxygen Saturation 93 % (90-100); ABG PH 7.24 mmol/L (7.35-7.45); ABG PO2 65.5 mmhg (80-100); ABG TCO2 55.5 mmhg (23-27)
[2018-05-12 17:44] LABS: Allen's Test Acceptable; Oxygen 40 %
[2018-05-12 17:45] LABS: ABG PCO2 124.8 mmhg (35.0-45.0)
[2018-05-12 19:18] LABS: Microscopic, Urine URINE MICROSCOPIC (MICROSCOPIC)
[2018-05-12 19:19] LABS: Appearance,Urine CLEAR (Clear); Bilirubin,Urine Negative (Negative); Blood, Urine Negative (Negative); Color,Urine YELLOW (Yellow); Glucose,Urine (UA) Negative (Negative); Ketones,Urine Negative (Negative); Leukocyte Esterase,Urine Negative (Negative); Protein,Urine Negative (Negative); Specific Gravity, Urine >= 1.030 (1.005-1.030); Urobilinogen,Urine 0.2 EU/dl (0.2)
[2018-05-12 19:27] LABS: Bacteria,Urine 2+ /lpf; Mucus,Urine 4+ /lpf
[2018-05-12 19:54] LABS: ABG Base Excess 29.7 mmol/L (-2.4-2.3); ABG HCO3 57.3 mmhg (22.0-26.0); ABG Oxygen Saturation 95 % (90-100); ABG PH 7.22 mmol/L (7.35-7.45); ABG TCO2 61.7 mmhg (23-27)
[2018-05-12 19:56] LABS: Oxygen 50 %
[2018-05-12 19:57] LABS: Allen's Test Acceptable
--- NOTE | 2018-05-12 22:27 | History & Physical Report ---
*Admission Date: 05/12/18 *Chief complaint: sob *History of present illness: this wf presented to ed with change in mental status - pt with hx of sev copd - prt was unable to give hx and had abn abg and was admitted on cpap- [facility] History I have reviewed the patient's past medical history: Yes Medical History: Reports:: Anxiety, Chronic Obstructive Pulmonary Disease (COPD), Hyperlipidemia, Hypertension Denies:: Cancer, Diabetes Mellitus Type 1, Diabetes Mellitus Type 2, MRSA *Have you ever received a pneumonia vaccine?: Yes *Have you received a flu vaccine this season?: No Other Medical History: Reports: Arthritis, Sinus Problems Other Surgeries: Yes: Colonoscopy Amputation: No Fractures: No - *Social History Smoking Status: Current every day smoker Tobacco Type: cigarettes # Packs/Day (cigarettes): 2 #Yrs smoked (if former smoker): 40 Alcohol Intake: former Alcohol Intake Frequency:: other Substance Use Type: denies use *Occupational Status:: retired Housing: apartment Household Members: none *Travel in the last 8 weeks: None - Psychiatric History Expresses thoughts of harming self/others: None Suicide Plan Description: No Plan Pschychiatric History:: Reports:: Anxiety, Bipolar Disorder Family Hx:: Unable to obtain Review of Systems - Review of Systems Review of systems:: unable to obtain - *Neurologic Reports abnormal speech, Reports weakness, Denies localized weakness, Denies fainting Meds Home Medications Medication Instructions Recorded Confirmed Type diazepam 5 mg tablet 5 mg PO TID #90 tab 03/12/18 05/13/18 Rx Fluticasone/Vilanterol [Breo 1 puff INHALATION DAILY 05/13/18 05/13/18 History Ellipta 100-25 Mcg INH] Umeclidinium [place] [Incruse 1 puff IH DAILY 05/13/18 05/13/18 History Ellipta] Allergies Allergy/AdvReac Type Severity Reaction Status Date / Time orange juice Allergy Mild Rash Verified 05/13/18 10:17 Exam Vital signs and Labs for Last 24 Hours: Temp Pulse Resp BP Pulse Ox 98.1 F 76 22 100/45 L 92 L 05/12/18 21:58 05/12/18 21:58 05/12/18 21:58 05/12/18 21:58 05/12/18 21:25 Laboratory Results - last 24 hr 05/12/18 14:11: Specimen Source L brachial, O2 % 3lpm, ABG pH 7.21 L*, ABG pCO2 128.5 H, ABG pO2 43.5 L, ABG HCO3 50.2 H, ABG Total CO2 54.2 H, ABG O2 Saturation 81 L*, ABG Base Excess 22.4 H 05/12/18 14:12: WBC 7.4, RBC 4.30, Hgb 13.4, Hct 44.9, MCV 104.4 H, MCH 31.3 H, MCHC 29.9 L, RDW 13.4, Plt Count 143, MPV 7.3 L, Neut % (Auto) 60.4, Lymph % (Auto) 29.3, Love % (Auto) 8.9, Eos % (Auto) 0.8, Baso % (Auto) 0.6, Neut # (Auto) 4.5, Lymph # (Auto) 2.2, Love # (Auto) 0.7, Eos # (Auto) 0.1, Baso # (Auto) 0.1 05/12/18 14:12: Sodium 144, Potassium 4.9, Chloride 101, Carbon Dioxide 44 H*, Anion Gap 3.9 L, BUN 20 H D, Creatinine 0.50 L D, Estimated Creat Clear 41, Estimated GFR 123, Est GFR ( Amer) 149 D, Glucose 139 H, Calcium 9.2, Total Bilirubin 0.3, AST 7 L D, ALT 16, Alkaline Phosphatase 59, Troponin I < 0.02, Total Protein 7.4, Albumin 3.6, Globulin 3.8 H, Albumin/Globulin Ratio 0.9 L 05/12/18 14:45: Lactate 1.1 05/12/18 17:31: Specimen Source Right radial, O2 % 40, ABG pH 7.24 L*, ABG pCO2 124.8 H, ABG pO2 65.5 L, ABG HCO3 51.7 H, ABG Total CO2 55.5 H, ABG O2 Saturation 93, ABG Base Excess 24.2 H, Jaylen Test Acceptable, Vent Rate 22, Tidal Volume Bipap 14/6 05/12/18 19:05: Urine Color Yellow, Urine Appearance Clear, Urine pH 6.0, Ur Specific [place] >= 1.030, Urine Protein Negative, Urine Glucose (UA) Negative, Urine Ketones Negative, Urine Blood Negative, Urine Nitrate Negative, Urine Bilirubin Negative, Urine Urobilinogen 0.2, Ur Leukocyte Esterase Negative, Urine WBC 5-10, Ur Squamous Epith Cells 3-5, Urine Bacteria 2+, Urine Mucus 4+ 05/12/18 19:45: Specimen Source Right radial, O2 % 50, ABG pH 7.22 L*, ABG pCO2 142.0 H, ABG pO2 73.0 L, ABG HCO3 57.3 H, ABG Total CO2 61.7 H, ABG O2 Saturation 95, ABG Base Excess 29.7 H, Jaylen Test Acceptable, Vent Rate 22, Tidal Volume Bipap 14/6 I & O for Last 24 hours: Intake & Output 05/10/18 05/11/18 05/12/18 05/13/18 11:59 11:59 11:59 11:59 Weight 105 lb - Constitutional obtunded - *Routine HEENT Exam Head: Present: normocephalic Eye: Present: EOMI, PERRL ENT: Present: mucous membranes dry - *Routine Neck Exam Absent: JVD - *Routine Respiratory Exam Present: decreased breath sounds, prolonged expiratory phase, diminished air movement - *Routine Cardiovascular Exam Present: RRR, murmur - *Routine Abdominal Exam Present: soft - *Routine Extremities Exam Absent: calf tenderness - *Routine Skin Exam Present: intact - *Routine Neurological Exam Present: alert, oriented X3, CN II-XII intact - Routine Psychiatric Exam Present: unable to assess Assessment and Plan (1) Tobacco use Current visit: Yes Status: Acute Category: Medical Code(s): Z72.0 - Tobacco use (2) COPD exacerbation Current visit: Yes Status: Acute Category: Medical Code(s): J44.1 - Chronic obstructive pulmonary disease with (acute) exacerbation (3) Diabetes mellitus type 2 in nonobese Current visit: Yes Status: Chronic Category: Medical Code(s): E11.9 - Type 2 diabetes mellitus without complications (4) Acute respiratory failure with hypoxia and hypercarbia Current visit: No Status: Acute Category: Medical Code(s): J96.01 - Acute respiratory failure with hypoxia; J96.02 - Acute respiratory failure with hypercapnia
[2018-05-13 01:41] LABS: ABG Base Excess 24.3 mmol/L (-2.4-2.3); ABG HCO3 49.9 mmhg (22.0-26.0); ABG Oxygen Saturation 90 % (90-100); ABG PH 7.35 mmol/L (7.35-7.45); ABG PO2 54.4 mmhg (80-100); ABG TCO2 52.7 mmhg (23-27)
[2018-05-13 01:44] LABS: Oxygen 40 %
--- NOTE | 2018-05-13 07:28 | Pharmacy Consult Notes ---
[facility] Pharmacy VTE Monitoring - Patient Demographics Admission date: 05/12/18 Report Date: 05/13/18 Time: 07:28 Allergies/Adverse Reactions: Patient Allergies No Known Allergies Allergy (Verified 05/12/18 23:59) Height: 1.63 m Weight: 53 kg Patient Problems: Current Active Problems Diabetes mellitus type 2 in nonobese (Chronic) COPD exacerbation (Acute) Respiratory failure (Acute) - VTE Risk Labs: VTE Related Lab Results Hgb 13.4 g/dL (12.2-16.2) 05/12/18 14:12 Hct 44.9 % (37.0-47.0) 05/12/18 14:12 Plt Count 143 K/mm3 (142-424) 05/12/18 14:12 BUN 20 mg/dL (7-18) H D 05/12/18 14:12 Creatinine 0.50 mg/dL (0.55-1.02) L D 05/12/18 14:12 Estimated Creat Clear 41 mL/min (50-200) 05/12/18 14:12 VTE Score: 5 VTE Risk Level: Low Risk - Prophylaxis VTE Prophylaxis Ordered?: Yes Types of VTE Prophylaxis: TEDS Knee High Location of Applied Device: Bilateral Lower Extremeties - VTE Diagnosis Confirmed Treatment or plan recommended: Continue Current Treatment
[2018-05-13 08:34] LABS: ABG Base Excess 22.4 mmol/L (-2.4-2.3); ABG HCO3 47.3 mmhg (22.0-26.0); ABG Oxygen Saturation 94 % (90-100); ABG PO2 66.3 mmhg (80-100); ABG TCO2 49.7 mmhg (23-27); Oxygen 45% %; Tidal Volume 20/8
--- NOTE | 2018-05-13 09:01 | Progress Note ---
Internal Medicine - PN: Subj *Date: 05/13/18 *Time: 08:59 Interval history: Patient sitting up very talkative requesting a diet 7-Up states she is only smoking 1-1/2 cigarettes a day. Exam Vital signs and Labs for Last 24 Hours: Temp Pulse Resp BP Pulse Ox 97.6 F 51 L 22 144/55 H 99 05/13/18 08:09 05/13/18 08:09 05/13/18 08:09 05/13/18 08:09 05/13/18 08:09 Laboratory Results - last 24 hr 05/12/18 14:11: Specimen Source L brachial, O2 % 3lpm, ABG pH 7.21 L*, ABG pCO2 128.5 H, ABG pO2 43.5 L, ABG HCO3 50.2 H, ABG Total CO2 54.2 H, ABG O2 Saturation 81 L*, ABG Base Excess 22.4 H 05/12/18 14:12: WBC 7.4, RBC 4.30, Hgb 13.4, Hct 44.9, MCV 104.4 H, MCH 31.3 H, MCHC 29.9 L, RDW 13.4, Plt Count 143, MPV 7.3 L, Neut % (Auto) 60.4, Lymph % (Auto) 29.3, [place] % (Auto) 8.9, Eos % (Auto) 0.8, Baso % (Auto) 0.6, Neut # (Auto) 4.5, Lymph # (Auto) 2.2, Coffee # (Auto) 0.7, Eos # (Auto) 0.1, Baso # (Auto) 0.1 05/12/18 14:12: Sodium 144, Potassium 4.9, Chloride 101, Carbon Dioxide 44 H*, Anion Gap 3.9 L, BUN 20 H D, Creatinine 0.50 L D, Estimated Creat Clear 41, Estimated GFR 123, Est GFR ( Amer) 149 D, Glucose 139 H, Calcium 9.2, Total Bilirubin 0.3, AST 7 L D, ALT 16, Alkaline Phosphatase 59, Troponin I < 0.02, Total Protein 7.4, Albumin 3.6, Globulin 3.8 H, Albumin/Globulin Ratio 0.9 L 05/12/18 14:45: Lactate 1.1 05/12/18 17:31: Specimen Source Right radial, O2 % 40, ABG pH 7.24 L*, ABG pCO2 124.8 H, ABG pO2 65.5 L, ABG HCO3 51.7 H, ABG Total CO2 55.5 H, ABG O2 Saturation 93, ABG Base Excess 24.2 H, Jaylen Test Acceptable, Vent Rate 22, Tidal Volume Bipap 14/6 05/12/18 19:05: Urine Color Yellow, Urine Appearance Clear, Urine pH 6.0, Ur Specific [place] >= 1.030, Urine Protein Negative, Urine Glucose (UA) Negative, Urine Ketones Negative, Urine Blood Negative, Urine Nitrate Negative, Urine Bilirubin Negative, Urine Urobilinogen 0.2, Ur Leukocyte Esterase Negative, Urine WBC 5-10, Ur Squamous Epith Cells 3-5, Urine Bacteria 2+, Urine Mucus 4+ 05/12/18 19:45: Specimen Source Right radial, O2 % 50, ABG pH 7.22 L*, ABG pCO2 142.0 H, ABG pO2 73.0 L, ABG HCO3 57.3 H, ABG Total CO2 61.7 H, ABG O2 Saturation 95, ABG Base Excess 29.7 H, Jaylen Test Acceptable, Vent Rate 22, Tidal Volume Bipap 14/6 05/13/18 01:00: Specimen Source Right brachial, O2 % 40, ABG pH 7.35, ABG pCO2 92.0 H, ABG pO2 54.4 L, ABG HCO3 49.9 H, ABG Total CO2 52.7 H, ABG O2 Saturation 90, ABG Base Excess 24.3 H, Jaylen Test N/a, Vent Rate 22, Tidal Volume Bipap 20/8 05/13/18 08:00: Specimen Source R brachial, O2 % 45%, ABG pH 7.40, ABG pCO2 79.0 H, ABG pO2 66.3 L, ABG HCO3 47.3 H, ABG Total CO2 49.7 H, ABG O2 Saturation 94, ABG Base Excess 22.4 H, Tidal Volume 20/8 I & O for Last 24 hours: Intake & Output 05/10/18 05/11/18 05/12/18 05/13/18 11:59 11:59 11:59 11:59 Intake Total 488 / 488 Output Total 780 / 780 Balance -292 / -292 Weight 116 lb 13.52 oz - Constitutional no acute distress - *Routine HEENT Exam Head: Present: normocephalic Eye: Present: EOMI, PERRL ENT: Present: mucous membranes moist - *Routine Neck Exam Present: supple. Absent: lymphadenopathy - *Routine Respiratory Exam Present: CTA bilaterally, diminished air movement - *Routine Cardiovascular Exam Present: RRR - *Routine Abdominal Exam Present: soft, normoactive bowel sounds. Absent: tenderness - *Routine Extremities Exam Absent: cyanosis, clubbing, edema - *Routine Skin Exam Present: warm. Absent: rash - *Routine Neurological Exam Present: alert, oriented X3 Assessment and Plan (1) COPD exacerbation Current visit: Yes Status: Acute Category: Medical Code(s): J44.1 - Chronic obstructive pulmonary disease with (acute) exacerbation (2) Respiratory failure Current visit: Yes Status: Acute Category: Medical Code(s): J96.90 - Respiratory failure, unspecified, unspecified whether with hypoxia or hypercapnia - Assessment and plan all Dx Assessment and Plan for all problems:: Rounded with Dr. Dennison all orders per Jesi Patient needs volume ventilation to treat respiratory failure higher pressures on BiPAP level Pap patient device will not adequately treat patient
[2018-05-13 09:13] LABS: Anion Gap 4.3 mEq/L (5-15); Calcium 9.2 mg/dL (8.5-10.1); Potassium 4.3 mmoL/L (3.5-5.1)
[2018-05-13 09:16] LABS: Eosinophils % 0.2 % (0.1-12.0); Hematocrit 38.5 % (37.0-47.0); Hemoglobin 12.2 g/dL (12.2-16.2); Lymphocytes # 0.7 K/mm3 (0.7-4.5); Lymphocytes % 18.3 % (10-50); Mean Corpuscular HGB Conc 31.8 g/dL (31.8-35.4); Mean Corpuscular Hemoglobin 32.6 pg (27.0-31.2); Mean Corpuscular Volume 102.5 fl (81-99); Mean Platelet Volume 8.1 fl (7.4-10.4); Monocytes # 0.2 K/mm3 (0.1-1.0); Monocytes % 3.8 % (1.7-9.3); Neutrophils # 3.1 K/mm3 (1.8-7.8); Neutrophils % 77.6 % (37.0-80.0); Platelet Count 106 K/mm3 (142-424); Red Blood Count 3.76 M/mm3 (4.20-5.40); Red Cell Distribution Width 13.3 % (11.5-17.5); White Blood Count 3.9 K/mm3 (4.8-10.8)
--- NOTE | 2018-05-13 17:19 | Consult Report ---
*Admission Date: 05/12/18 *Chief complaint: Chronic respiratory failure. *History of present illness: Mrs. Holland is a 68-year-old woman who has had symptoms consistent with chronic obstructive pulmonary disease for a long period of time. She has been smoking since she was quite young and was up to 2-1/2 packages of cigarettes daily until December when she switched to cigars. She was smoking 1-1/2 packages of those every day when she was admitted here in February for an acute exacerbation of COPD complicated by acute on chronic hypercapnic respiratory failure. Symptoms resolved rather quickly with BiPAP, bronchodilators and corticosteroids and she was in her usual state of health at home until the last few days when she developed worsening shortness of breath and an increase in her chronic cough which was productive of green sputum. She does not recall having any fever, chills or chest pain. In the hospital, she has responded to BiPAP, antibiotics and corticosteroids and feels much better. She has been on oxygen at home and expects to go home on noninvasive ventilation. Mrs. Holland has not had symptoms of esophageal reflux but she does drink quite a bit of carbonated, non-caffeinated diet soda. Her appetite is fair and her weight has been stable. She has had no anginal type chest pain. At home, she has been on a variety of inhalers. "They keep giving me samples." She has a nebulizer which she uses from time to time. Her past medical history is significant for the fact that her , likely of cancer, complicating asbestos exposure. 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 She suffered exposure through his closed but also, as a child, walking through a school house almost every day where the heating pipes dripped asbestos dust. [facility] History Medical History: Reports:: Anxiety, Chronic Obstructive Pulmonary Disease (COPD), Hyperlipidemia, Hypertension Denies:: Cancer, Diabetes Mellitus Type 1, Diabetes Mellitus Type 2, MRSA *Have you ever received a pneumonia vaccine?: Yes *Have you received a flu vaccine this season?: No Other Medical History: Reports: Arthritis, Sinus Problems Other Surgeries: Yes: Colonoscopy Amputation: No Fractures: No - *Social History Smoking Status: Current every day smoker Tobacco Type: cigarettes # Packs/Day (cigarettes): 2 #Yrs smoked (if former smoker): 40 Alcohol Intake: former Alcohol Intake Frequency:: other Substance Use Type: denies use *Occupational Status:: retired Housing: apartment Household Members: none *Travel in the last 8 weeks: None Comment: I took care of her who had COPD and possible cancer. He several years ago now and she has moved from the home they had to an apartment. She has had a homeless woman coming in and out cooking for her intermittently but has no other help from any relatives. She has a puppy at home. - Psychiatric History Expresses thoughts of harming self/others: None Suicide Plan Description: No Plan Pschychiatric History:: Reports:: Anxiety, Bipolar Disorder Family Hx:: Unable to obtain Review of Systems - Review of Systems Review of systems:: pertinent systems reviewed and negative unless documented below I reviewed 14 systems and they were all negative except for the respiratory symptoms, arthritis pain in her right hand particularly and the fact that she is edentulous. - *Neurologic Reports abnormal speech, Reports weakness, Denies localized weakness, Denies fainting Meds Home Medications Medication Instructions Recorded Confirmed Type diazepam 5 mg tablet 5 mg PO TID #90 tab 03/12/18 05/13/18 Rx Fluticasone/Vilanterol [Breo 1 puff INHALATION DAILY 05/13/18 05/13/18 History Ellipta 100-25 Mcg INH] Umeclidinium [place] [Incruse 1 puff IH DAILY 05/13/18 05/13/18 History Ellipta] Allergies Allergy/AdvReac Type Severity Reaction Status Date / Time orange juice Allergy Mild Rash Verified 05/13/18 10:17 Exam Vital signs and Labs for Last 24 Hours: Temp Pulse Resp BP Pulse Ox 98.4 F 110 H 20 111/64 94 L 05/13/18 16:00 05/13/18 16:00 05/13/18 16:00 05/13/18 16:00 05/13/18 16:00 Laboratory Results - last 24 hr 05/12/18 17:31: Specimen Source Right radial, O2 % 40, ABG pH 7.24 L*, ABG pCO2 124.8 H, ABG pO2 65.5 L, ABG HCO3 51.7 H, ABG Total CO2 55.5 H, ABG O2 Saturation 93, ABG Base Excess 24.2 H, Jaylen Test Acceptable, Vent Rate 22, Tidal Volume Bipap 14/6 05/12/18 19:05: Urine Color Yellow, Urine Appearance Clear, Urine pH 6.0, Ur Specific Lewis >= 1.030, Urine Protein Negative, Urine Glucose (UA) Negative, Urine Ketones Negative, Urine Blood Negative, Urine Nitrate Negative, Urine Bilirubin Negative, Urine Urobilinogen 0.2, Ur Leukocyte Esterase Negative, Urine WBC 5-10, Ur Squamous Epith Cells 3-5, Urine Bacteria 2+, Urine Mucus 4+ 05/12/18 19:45: Specimen Source Right radial, O2 % 50, ABG pH 7.22 L*, ABG pCO2 142.0 H, ABG pO2 73.0 L, ABG HCO3 57.3 H, ABG Total CO2 61.7 H, ABG O2 Saturation 95, ABG Base Excess 29.7 H, Jaylen Test Acceptable, Vent Rate 22, Tidal Volume Bipap 14/05/13/18 01:00: Specimen Source Right brachial, O2 % 40, ABG pH 7.35, ABG pCO2 92.0 H, ABG pO2 54.4 L, ABG HCO3 49.9 H, ABG Total CO2 52.7 H, ABG O2 Saturation 90, ABG Base Excess 24.3 H, Jaylen Test N/a, Vent Rate 22, Tidal Volume Bipap /05/13/18 08:00: Specimen Source R brachial, O2 % 45%, ABG pH 7.40, ABG pCO2 79.0 H, ABG pO2 66.3 L, ABG HCO3 47.3 H, ABG Total CO2 49.7 H, ABG O2 Saturation 94, ABG Base Excess 22.4 H, Tidal Volume /05/13/18 08:40: WBC 3.9 L D, RBC 3.76 L, Hgb 12.2, Hct 38.5, MCV 102.5 H, MCH 32.6 H, MCHC 31.8, RDW 13.3, Plt Count 106 L D, MPV 8.1, Neut % (Auto) 77.6, Lymph % (Auto) 18.3, [place] % (Auto) 3.8, Eos % (Auto) 0.2, Baso % (Auto) 0.0 L, Neut # (Auto) 3.1, Lymph # (Auto) 0.7, [place] # (Auto) 0.2, Eos # (Auto) 0.0, Baso # (Auto) 0.0 05/13/18 08:40: Sodium 146 H, Potassium 4.3, Chloride 102, Carbon Dioxide 44 H*, Anion Gap 4.3 L, BUN 23 H, Creatinine 0.60, Estimated Creat Clear 46, Estimated GFR 100, Est GFR ( Amer) 121, Glucose 153 H, Calcium 9.2 I & O for Last 24 hours: Intake & Output 05/10/18 05/11/18 05/12/18 05/13/18 23:59 23:59 23:59 23:59 Intake Total 1448 / 1448 Output Total 780 / 780 575 / 575 Balance -780 / -780 873 / 873 Weight 53 kg 53 kg Microbiology Reports for the Last 24 Hours: Microbiology 05/13/18 14:00 Sputum - Expectorated Sputum Gram Stain - Final Narrative: On physical examination, Mrs. Holland is a very pleasant and articulate, gaunt and chronically ill-appearing woman sitting in a chair, eating dinner and wearing oxygen. Her saturations fell to the mid to low 80s in conversation. HEENT: Sclerae clear; conjunctivae pink; external nares unremarkable; oropharynx is Mallampati I or II and she is edentulous. There are no mucosal lesions. Neck: No adenopathy Chest: Symmetrical expansion; dorsal kyphosis; hyperresonance by percussion bilaterally; very distant breath sounds with a prolonged expiratory phase of ventilation and no adventitious sounds. Heart: Regular rhythm; no murmur Abdomen: Bowel sounds diminished; soft, nontender, no masses or organomegaly. Skin: No rash but there are ecchymoses on the arms and in the antecubital fossa on the right from blood draw. Neurological: Grossly intact No asterixis. Internal Medicine - CN: Reslt - Labs CBC & Chem 7: 05/13/18 08:40 05/13/18 08:40 Labs: Short CBC 05/13/18 Range/Units 08:40 WBC 3.9 L D (4.8-10.8) K/mm3 Hgb 12.2 (12.2-16.2) g/dL Hct 38.5 (37.0-47.0) % Plt Count 106 L D (142-424) K/mm3 BMP 05/13/18 08:40 Sodium 146 H Potassium 4.3 Chloride 102 Carbon Dioxide 44 H* BUN 23 H Creatinine 0.60 Glucose 153 H Calcium 9.2 Urine 05/12/18 Range/Units 19:05 Urine Color Yellow (Yellow) Urine Appearance Clear (Clear) Urine pH 6.0 (5.0-8.5) Ur Specific Lewis >= 1.030 (1.005-1.030) Urine Protein Negative (Negative) Urine Glucose (UA) Negative (Negative) - ABG Interpretation ABG results: 05/12/18 05/12/18 05/12/18 14:11 17:31 19:45 ABG pH 7.21 L* 7.24 L* 7.22 L* ABG pCO2 128.5 H 124.8 H 142.0 H ABG pO2 43.5 L 65.5 L 73.0 L ABG HCO3 50.2 H 51.7 H 57.3 H ABG Total CO2 54.2 H 55.5 H 61.7 H ABG O2 Saturation 81 L* 93 95 ABG Base Excess 22.4 H 24.2 H 29.7 H 05/13/18 05/13/18 01:00 08:00 ABG pH 7.35 7.40 ABG pCO2 92.0 H 79.0 H ABG pO2 54.4 L 66.3 L ABG HCO3 49.9 H 47.3 H ABG Total CO2 52.7 H 49.7 H ABG O2 Saturation 90 94 ABG Base Excess 24.3 H 22.4 H Interpretation: respiratory acidosis - Impressions I personally reviewed the CT from last year and recent chest x-rays. Last year, there was some evidence of bilateral small pneumothoraces and she does have peripheral infiltrates on that CT. There is evidence of bilateral pulmonary fibrosis and significant emphysema. I believe there is calcification of the pleura at the domes of the diaphragms. On the current x-rays, there is no evidence of pneumothorax or infiltrate. Assessment and Plan (1) Tobacco use Current visit: Yes Status: Acute Category: Medical Code(s): Z72.0 - Tobacco use (2) COPD exacerbation Current visit: Yes Status: Acute Category: Medical Code(s): J44.1 - Chronic obstructive pulmonary disease with (acute) exacerbation (3) Diabetes mellitus type 2 in nonobese Current visit: Yes Status: Chronic Category: Medical Code(s): E11.9 - Type 2 diabetes mellitus without complications (4) Acute respiratory failure with hypoxia and hypercarbia Current visit: No Status: Acute Category: Medical Code(s): J96.01 - Acute respiratory failure with hypoxia; J96.02 - Acute respiratory failure with hypercapnia - Assessment and plan all Dx Assessment and Plan for all problems:: Mrs. Holland likely has very severe COPD associated with a long history of cigarette smoking and current smoking of cigars up to 1-1/2 packages a day. She has chronic bronchitis by history and evidence of emphysema on CT scan. She was admitted with acute on chronic hypercapnic respiratory failure. She does not me any symptoms suggesting an acute viral illness and has no evidence of heart failure, active ischemic heart disease, atelectasis, pneumothorax or aspiration causing this exacerbation. She has had Valium at home, I understand and perhaps this drug or some other has precipitated the admissions in February and now. She told me prescriptions for that and for a pain medicine were removed from the home while she was hospitalized. She is obviously very precarious and should not be given sedation, although her care is palliative. I understand she will be sent home on the Trilogy ventilator to use at night and the BiPAP mode. I think BiPAP alone might be satisfactory if the home respiratory care company manages it. If not, I know they will manage Trilogy. She certainly could be a candidate for hospice care and, if she agrees, she would get the aid she needs and caring for herself at home. Family just does not see her and the person helping her intermittently was a homeless person herself, Mrs. Holland told me. She will need a home health aide at least since she is so debilitated and impaired by her disease. I do think it is dangerous for her to be at home with oxygen smoking so much, especially if she becomes confused at all. Supervision will be necessary and I suggested a long term to her. She declined this at present. I would be happy to follow-up with her as an outpatient. If she has not had the influenza vaccine or is not up-to-date on pneumococcal vaccination, I hope that she will accept them at the end of this hospitalization. Thank you for the opportunity to participate in her care.
[2018-05-14 05:53] LABS: Hematocrit 39.2 % (37.0-47.0); Hemoglobin 12.2 g/dL (12.2-16.2); Mean Corpuscular HGB Conc 31.2 g/dL (31.8-35.4); Mean Corpuscular Hemoglobin 31.4 pg (27.0-31.2); Mean Corpuscular Volume 100.6 fl (81-99); Mean Platelet Volume 7.5 fl (7.4-10.4); Platelet Count 109 K/mm3 (142-424); Red Blood Count 3.89 M/mm3 (4.20-5.40); Red Cell Distribution Width 13.8 % (11.5-17.5); White Blood Count 10.2 K/mm3 (4.8-10.8)
[2018-05-14 05:54] LABS: Basophils % 0.1 % (0.1-2.0); Eosinophils % 0.3 % (0.1-12.0); Lymphocytes # 1.1 K/mm3 (0.7-4.5); Lymphocytes % 10.5 % (10-50); Monocytes # 0.3 K/mm3 (0.1-1.0); Monocytes % 3.3 % (1.7-9.3); Neutrophils # 8.7 K/mm3 (1.8-7.8)
[2018-05-14 06:13] LABS: Albumin Level 2.8 gm/dL (3.4-5.0); Albumin/Globulin Ratio 0.9 (1.1-1.8); Anion Gap 7.5 mEq/L (5-15); Bilirubin,Total 0.3 mg/dL (0.2-1.0); Calcium 8.5 mg/dL (8.5-10.1); Globulin 3.1 gm/dl (1.3-3.2); Potassium 4.5 mmoL/L (3.5-5.1); Total Protein,Serum 5.9 gm/dL (6.4-8.2)
[2018-05-14 06:31] LABS: Lymphocytes % 9 % (10-50); Monocytes % 3 % (2-9); Neutrophils % 85 % (42-76); Total Cells Counted 100
--- NOTE | 2018-05-14 09:50 | Progress Note ---
Internal Medicine - PN: Subj *Date: 05/14/18 *Time: 09:48 Interval history: discussed with pt she is willing to talk to hospice. Pt states she feels better and thought the trilogy works well Exam Vital signs and Labs for Last 24 Hours: Temp Pulse Resp BP Pulse Ox 98.0 F 95 H 20 150/63 H 96 05/14/18 08:00 05/14/18 08:00 05/14/18 08:00 05/14/18 08:00 05/14/18 08:00 Laboratory Results - last 24 hr 05/14/18 05:35: WBC 10.2 D, RBC 3.89 L, Hgb 12.2, Hct 39.2, MCV 100.6 H, MCH 31.4 H, MCHC 31.2 L, RDW 13.8, Plt Count 109 L, MPV 7.5, Neut % (Auto) 85.0 H, Lymph % (Auto) 10.5, [place] % (Auto) 3.3, Eos % (Auto) 0.3, Baso % (Auto) 0.1, Neut # (Auto) 8.7 H, Lymph # (Auto) 1.1, [place] # (Auto) 0.3, Eos # (Auto) 0.0, Baso # (Auto) 0.0, Total Counted 100, Neutrophils % (Manual) 85 H, Band Neutrophils % 1.0, Lymphocytes % (Manual) 9 L, Atypical Lymphs % 2.0, Monocytes % (Manual) 3, Platelet Estimate Slight decrease 05/14/18 05:35: Sodium 142, Potassium 4.5, Chloride 103, Carbon Dioxide 36 H, Anion Gap 7.5, BUN 19 H, Creatinine 0.51 L, Estimated Creat Clear 46, Estimated GFR 120, Est GFR ( Amer) 146 D, Glucose 174 H, Calcium 8.5, Total Bilirubin 0.3, AST 8 L, ALT 18, Alkaline Phosphatase 47, Total Protein 5.9 L, Albumin 2.8 L, Globulin 3.1, Albumin/Globulin Ratio 0.9 L I & O for Last 24 hours: Intake & Output 05/11/18 05/12/18 05/13/18 05/14/18 11:59 11:59 11:59 11:59 Intake Total 1448 / 1448 1721 / 1721 Output Total 1055 / 1055 300 / 300 Balance 393 / 393 1421 / 1421 Weight 116 lb 13.52 oz Microbiology Reports for the Last 24 Hours: Microbiology 05/13/18 14:00 Sputum - Expectorated Sputum Gram Stain - Final 05/13/18 14:00 Sputum - Expectorated Sputum Sputum Culture - Preliminary 05/12/18 19:05 Urine,Catheterized Urine Culture - Preliminary NO GROWTH AFTER 24 HOURS - Constitutional no acute distress - *Routine HEENT Exam Head: Present: normocephalic Eye: Present: EOMI, PERRL ENT: Present: mucous membranes moist - *Routine Neck Exam Present: supple. Absent: lymphadenopathy - *Routine Respiratory Exam Present: wheezes, diminished air movement - *Routine Cardiovascular Exam Present: RRR - *Routine Abdominal Exam Present: soft, normoactive bowel sounds. Absent: tenderness - *Routine Extremities Exam Absent: cyanosis, clubbing, edema - *Routine Skin Exam Present: warm. Absent: rash - *Routine Neurological Exam Present: alert, oriented X3 - Routine Psychiatric Exam Present: normal affect Assessment and Plan (1) Tobacco use Current visit: Yes Status: Acute Category: Medical Code(s): Z72.0 - Tobacco use (2) COPD exacerbation Current visit: Yes Status: Acute Category: Medical Code(s): J44.1 - Chronic obstructive pulmonary disease with (acute) exacerbation (3) Diabetes mellitus type 2 in nonobese Current visit: Yes Status: Chronic Category: Medical Code(s): E11.9 - Type 2 diabetes mellitus without complications (4) Acute respiratory failure with hypoxia and hypercarbia Current visit: No Status: Acute Category: Medical Code(s): J96.01 - Acute respiratory failure with hypoxia; J96.02 - Acute respiratory failure with hypercapnia - Assessment and plan all Dx Assessment and Plan for all problems:: discussed pt with gary he will round later today. all orders per gary
[2018-05-15 06:25] LABS: Eosinophils % 0.2 % (0.1-12.0); Hematocrit 41.9 % (37.0-47.0); Hemoglobin 12.6 g/dL (12.2-16.2); Lymphocytes # 0.9 K/mm3 (0.7-4.5); Lymphocytes % 11.8 % (10-50); Mean Corpuscular Volume 103.3 fl (81-99); Mean Platelet Volume 7.6 fl (7.4-10.4); Monocytes # 0.4 K/mm3 (0.1-1.0); Monocytes % 4.6 % (1.7-9.3); Neutrophils # 6.7 K/mm3 (1.8-7.8); Neutrophils % 83.5 % (37.0-80.0); Platelet Count 103 K/mm3 (142-424); Red Blood Count 4.06 M/mm3 (4.20-5.40); Red Cell Distribution Width 13.6 % (11.5-17.5)
[2018-05-15 07:53] LABS: Anion Gap 6.7 mEq/L (5-15); Potassium 4.7 mmoL/L (3.5-5.1)
[2018-05-15 07:54] LABS: Albumin Level 2.7 gm/dL (3.4-5.0); Albumin/Globulin Ratio 0.9 (1.1-1.8); Bilirubin,Total 0.1 mg/dL (0.2-1.0); Calcium 8.5 mg/dL (8.5-10.1); Total Protein,Serum 5.7 gm/dL (6.4-8.2)
--- NOTE | 2018-05-15 09:18 | Discharge Summary ---
General - General Admission date:: 05/12/18 Discharge date: 05/15/18 HPI HPI: this wf presented to ed with change in mental status - pt with hx of sev copd - prt was unable to give hx and had abn abg and was admitted on cpap- Hospital Course Hospital Course: x ray copd pulmonary consult- see note pt is being dc home with hospice with bipap. pt sitting up in chair with o2 states she is ready to go home. Objective Vital signs: Temp Pulse Resp BP Pulse Ox 98.2 F 95 H 18 142/61 H 96 05/15/18 07:26 05/15/18 07:26 05/15/18 07:26 05/15/18 07:26 05/15/18 08:00 no acute distress - *Routine HEENT Exam Head: Present: normocephalic Eye: Present: PERRL ENT: Present: mucous membranes moist - *Routine Neck Exam Present: supple - *Routine Respiratory Exam Present: CTA bilaterally, wheezes - *Routine Cardiovascular Exam Present: RRR - *Routine Abdominal Exam Present: soft, normoactive bowel sounds - *Routine Extremities Exam Present: full ROM - *Routine Skin Exam Present: intact - *Routine Neurological Exam Present: alert, oriented X3 - Routine Psychiatric Exam Present: normal affect Results Labs on day of discharge: Labs from last 24 hours 05/15/18 05/15/18 05:50 05:50 WBC 8.0 RBC 4.06 L Hgb 12.6 Hct 41.9 MCV 103.3 H MCH 31.0 MCHC 30.0 L RDW 13.6 Plt Count 103 L MPV 7.6 Neut % (Auto) 83.5 H Lymph % (Auto) 11.8 [place] % (Auto) 4.6 Eos % (Auto) 0.2 Baso % (Auto) 0.0 L Neut # (Auto) 6.7 Lymph # (Auto) 0.9 [place] # (Auto) 0.4 Eos # (Auto) 0.0 Baso # (Auto) 0.0 Sodium 145 Potassium 4.7 Chloride 106 Carbon Dioxide 37 H Anion Gap 6.7 BUN 13 D Creatinine 0.33 L D Estimated Creat Clear 46 Estimated GFR 199 Est GFR ( Amer) 241 D Glucose 154 H Calcium 8.5 Total Bilirubin 0.1 L AST 38 H D ALT 86 H D Alkaline Phosphatase 49 Total Protein 5.7 L Albumin 2.7 L Globulin 3.0 Albumin/Globulin Ratio 0.9 L Preliminary micro results at discharge 05/13/18 14:00 Sputum Culture - Preliminary Sputum - Expectorated Sputum 05/12/18 14:56 Blood Culture - Preliminary Blood NO GROWTH AFTER 48 HOURS 05/12/18 14:45 Blood Culture - Preliminary Blood NO GROWTH AFTER 48 HOURS - Additional Comments rounded with gary all orders per gary DS: Diagnosis - Discharge Diagnosis (1) Tobacco use Status: Acute (2) COPD exacerbation Status: Acute (3) Diabetes mellitus type 2 in nonobese Status: Chronic (4) Acute respiratory failure with hypoxia and hypercarbia Status: Acute Discharge Plan - Patient Discharge Instructions ACTIVITY: Continue current activity DIET: continue same diet Patient Instructions: DI for Respiratory Failure, Respiratory Failure - Follow up Plan Follow up with: Jarret Dennison MD [Primary Care Provider] - 06/10/18 Disposition: Home, Self-Fdc Medications: Home Medications Medication Instructions Recorded Confirmed Type diazepam 5 mg tablet 5 mg PO TID #90 tab 03/12/18 05/13/18 Rx Fluticasone/Vilanterol [Breo 1 puff INHALATION DAILY 05/13/18 05/13/18 History Ellipta 100-25 Mcg INH] Umeclidinium [place] [Incruse 1 puff IH DAILY 05/13/18 05/13/18 History Ellipta] Azithromycin [Zithromax 250mg 250 mg PO DIRECTED #6 tab 05/15/18 Rx tab] predniSONE [Prednisone 20mg 20 mg PO BID #10 tab 05/15/18 Rx Tab] Prescriptions/Medication Reconciliation: New Azithromycin [Zithromax 250mg tab] 250 mg PO DIRECTED #6 tab predniSONE [Prednisone 20mg Tab] 20 mg PO BID #10 tab Continue diazepam 5 mg tablet 5 mg PO TID #90 tab Fluticasone/Vilanterol [Breo Ellipta 100-25 Mcg INH] 1 puff INHALATION DAILY Umeclidinium [place] [Incruse Ellipta] 1 puff IH DAILY
== END 2018-05-15 12:15 | disposition hospice, home (50) | DRG 189 ==
LOC: SUPCPDRO → ER 14:01 → 2ND 21:08
PROVIDERS: ADMIT Emergency Medicine; ATTEND Emergency Medicine
CPT/HCPCS: J0456

== ENCOUNTER 2018-07-01 12:07 | Inpatient (IN) ==
[2018-07-01 12:44] LABS: Basophils % 0.1 % (0.1-2.0); Hematocrit 39.7 % (37.0-47.0); Hemoglobin 12.1 g/dL (12.2-16.2); Lymphocytes % 10.4 % (10-50); Mean Corpuscular HGB Conc 30.4 g/dL (31.8-35.4); Mean Corpuscular Hemoglobin 30.5 pg (27.0-31.2); Mean Corpuscular Volume 100.4 fl (81-99); Mean Platelet Volume 7.6 fl (7.4-10.4); Monocytes # 0.6 K/mm3 (0.1-1.0); Monocytes % 6.3 % (1.7-9.3); Neutrophils % 83.3 % (37.0-80.0); Platelet Count 213 K/mm3 (142-424); Red Blood Count 3.95 M/mm3 (4.20-5.40); Red Cell Distribution Width 13.7 % (11.5-17.5); White Blood Count 9.6 K/mm3 (4.8-10.8)
[2018-07-01 12:48] LABS: ABG Base Excess 20.1 mmol/L (-2.4-2.3); ABG HCO3 46.8 mmhg (22.0-26.0); ABG Oxygen Saturation 88 % (90-100); ABG PH 7.29 mmol/L (7.35-7.45); ABG PO2 56.1 mmhg (80-100); ABG TCO2 49.9 mmhg (23-27)
[2018-07-01 12:50] LABS: Allen's Test Acceptable; Oxygen 3 %
[2018-07-01 12:51] LABS: ABG PCO2 100.2 mmhg (35.0-45.0)
[2018-07-01 13:02] LABS: Alanine Aminotransferase 16 U/L (12-78); Albumin Level 2.4 gm/dL (3.4-5.0); Albumin/Globulin Ratio 0.5 (1.1-1.8); Alkaline Phosphatase 67 U/L (46-116); Anion Gap 5.1 mEq/L (5-15); Aspartate Amino Transferase 3 U/L (15-37); Bilirubin,Total 0.3 mg/dL (0.2-1.0); Blood Urea Nitrogen 29 mg/dL (7-18); Calcium 9.8 mg/dL (8.5-10.1); Chloride 99 mmol/L (98-107); Globulin 5.3 gm/dl (1.3-3.2); Glucose 191 mg/dL (74-106); Potassium 4.1 mmoL/L (3.5-5.1); Sodium 143 mmol/L (136-145); Total Protein,Serum 7.7 gm/dL (6.4-8.2)
[2018-07-01 13:16] LABS: Carbon Dioxide 43 mmol/L (21.0-32.0)
--- NOTE | 2018-07-01 13:30 | Emergency Department Note ---
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 The time I documented below is in addition to time spent performing reported procedures but includes the following listed in this critical care notation. Medical Decision Making - Medical Records Medical records reviewed: Yes: I reviewed the patient's medical records. - José Miguel Inquiry Pt receiving controlled substance: No Vital Signs: 07/01/18 12:06 07/01/18 12:50 Temperature 98.1 F 98.5 F Temperature Source Temporal Artery Scan Oral Pulse Rate [Right Brachial] 105 H 102 H Respiratory Rate 17 18 Blood Pressure [Right Arm] 122/69 133/40 L Blood Pressure Mean [Right Arm] 86 71 Blood Pressure Source [Right Arm] Automatic Cuff Automatic Cuff Blood Pressure Position [Right Arm] Sitting Supine 02 Sat by Pulse Oximetry 98 83 L Oxygen Delivery Method Room Air Nasal Cannula Oxygen Flow Rate (LPM) 3 - Lab Data Lab results reviewed: Yes: I reviewed the patient's lab results. Lab Results 07/01/18 12:09: Specimen Source Right brachial, O2 % 3, ABG pH 7.29 L, ABG pCO2 100.2 H, ABG pO2 56.1 L, ABG HCO3 46.8 H, ABG Total CO2 49.9 H, ABG O2 Saturation 88 L, ABG Base Excess 20.1 H, Jaylen Test Acceptable 07/01/18 12:30: WBC 9.6, RBC 3.95 L, Hgb 12.1 L, Hct 39.7, MCV 100.4 H, MCH 30.5, MCHC 30.4 L, RDW 13.7, Plt Count 213, MPV 7.6, Neut % (Auto) 83.3 H, Lymph % (Auto) 10.4, [place] % (Auto) 6.3, Eos % (Auto) 0.0 L, Baso % (Auto) 0.1, Neut # (Auto) 8.0 H, Lymph # (Auto) 1.0, [place] # (Auto) 0.6, Eos # (Auto) 0.0, Baso # (Auto) 0.0 07/01/18 12:30: Sodium 143, Potassium 4.1, Chloride 99, Carbon Dioxide 43 H*, Anion Gap 5.1, BUN 29 H, Creatinine 0.68, Estimated Creat Clear 70, Estimated GFR 86, Est GFR ( Amer) 104, Glucose 191 H, Calcium 9.8, Total Bilirubin 0.3, AST 3 L, ALT 16, Alkaline Phosphatase 67, Troponin I < 0.02, Total Protein 7.7, Albumin 2.4 L, Globulin 5.3 H, Albumin/Globulin Ratio 0.5 L 07/01/18 12:30: Lactate 0.9 Result diagrams: 07/01/18 12:30 07/01/18 12:30 Orders (Tests/Meds): ED MEDICATIONS Generic Name Dose Route Start Last Admin Trade Name Freq PRN Reason Stop Dose Admin Sodium Chloride 3 ml 07/01/18 12:09 Sodium Chloride 3% 15ml Neb 07/31/18 12:08 ONCE PRN INDUCE SPUTUM COLLECTION ORDERS Category Date Time Status B-Type Natriuretic Peptide Stat Lab 07/01/18 12:30 Received Blood Culture Stat Micro 07/01/18 12:40 Received Sputum Culture & Gram Stain Stat Micro 07/01/18 12:09 Ordered - Radiology Data #1 Image(s): Chest Image Reviewed: Yes I reviewed the patient's radiology image Preliminary Findings: Abnormal (copd) - ECG Data Tracing #1 Normal Sinus Rhythm: Yes Ischemic changes: non-specific ST-T wave changes Resp/SOB HPI - General Chief Complaint: Shortness of Breath/Dyspnea Stated Complaint: shortness of breath Time Seen by Provider: 07/01/18 12:15 Mode of Arrival: Ambulatory Source of Information: Patient, EMS, Medical Record Limitations: No Limitations Description of Symptoms (Recalled from ER Triage Doc. by RN): pt presents with shortness of air; - History of Present Illness pt with sob with prod cough- pt has been - over the last 24 hrs and presents for eval- pt reports no chest pain and has been complaint with august MORALEZ Complaint: shortness of breath, cough Onset (ago): day(s) Severity: moderate Known history of: COPD, congestive heart failure, recurrent pneumonia Associated symptoms: denies other symptoms Treatment prior to arrival: oxygen, bronchodilator - Related Data Home oxygen amount: 2 liters Home Medications Medication Instructions Recorded Confirmed Fluticasone/Vilanterol [Breo 1 puff INHALATION DAILY 05/13/18 05/16/18 Ellipta 100-25 Mcg INH] Umeclidinium [place] [Incruse 1 puff IH DAILY 05/13/18 05/16/18 Ellipta] Azithromycin [Zithromax 250mg 250 mg PO DIRECTED 05/16/18 05/16/18 tab] diazePAM [Valium] 5 mg PO TID 05/16/18 05/16/18 Allergies Allergy/AdvReac Type Severity Reaction Status Date / Time orange juice Allergy Mild Rash Verified 05/13/18 10:17 [facility] History - Hepatitis A Screen Drug use history?: No High risk sexual behaviors?: No History of sexually transmitted infection?: No Currently employed?: No Childcare worker?: No Do you have indoor plumbing?: Yes Do you have electricity?: Yes Attestation statement:: This patient has been screened for Hepatitis A risk factors. I have reviewed the patient's past medical history: Yes Medical History: Reports:: Anxiety, Chronic Obstructive Pulmonary Disease (COPD), Hyperlipidemia, Hypertension Denies:: Cancer, Diabetes Mellitus Type 1, Diabetes Mellitus Type 2, Internal Pacemaker, MRSA Other Medical History: Reports: Arthritis, Sinus Problems Other Surgeries: Yes: Colonoscopy. No: Pacemaker Amputation: No Fractures: No - Social History Smoking Status: Current every day smoker Tobacco Type: cigarettes, cigars # Packs/Day (cigarettes): 1 #Yrs smoked (if former smoker): 40 Alcohol Intake: former Alcohol Intake Frequency:: 3 or more drinks per day Substance Use Type: denies use Occupational Status: retired Housing: apartment Household Members: none Comment: I took care of her who had COPD and possible cancer. He several years ago now and she has moved from the home they had to an apartment. She has had a homeless woman coming in and out cooking for her intermittently but has no other help from any relatives. She has a puppy at home. - Psychiatric History Pschychiatric History:: Reports:: Anxiety, Bipolar Disorder Family Hx:: Unable to obtain ROS Obtained: Yes All systems reviewed & no additional complaints - Constitutional Constitutional: Denies fever(s) - Eyes Eyes: Denies change in vision - ENT Ears, Nose, Mouth, and Throat: Denies sore throat - Cardiovascular Cardiovascular: Reports chest pain - Respiratory Respiratory: Yes cough, Yes dyspnea - Gastrointestinal Gastrointestingal: Denies: abdominal pain - Genitourinary Female Genitourinary: Denies hematuria - Musculoskeletal Musculoskeletal: Denies joint pain - Neurologic Neurologic: Denies seizure-like activity Physical Exam - General General appearance: alert, obese - Head Head exam: normocephalic - Eye Eye exam: Present: PERRL, EOMI - ENT ENT exam: Present: mucous membranes dry - Neck Neck exam: Present: trachea midline - Respiratory Respiratory exam: Present: other (dec bs bilat ). Absent: respiratory distress - Cardiovascular Cardiovascular exam: Present: regular rate, systolic murmur, +S4 - Abdominal Exam Abdominal exam: Present: soft - Extremities Exam Extremities exam: Absent: calf tenderness - Neurological Exam Neurological exam: Present: alert, CN II-XII intact. Absent: motor sensory deficit - Psychiatric Psychiatric exam: Present: normal affect - Skin Skin exam: Absent: rash
[2018-07-01 18:15] LABS: ABG Base Excess 18.9 mmol/L (-2.4-2.3); ABG HCO3 45.9 mmhg (22.0-26.0); ABG Oxygen Saturation 97 % (90-100); ABG PH 7.26 mmol/L (7.35-7.45); ABG PO2 87.3 mmhg (80-100); ABG TCO2 49.1 mmhg (23-27)
[2018-07-01 18:16] LABS: Allen's Test Y; Oxygen 70 %
[2018-07-01 18:17] LABS: ABG PCO2 103.9 mmhg (35.0-45.0)
[2018-07-02 07:30] LABS: Anion Gap 1.3 mEq/L (5-15); Potassium 4.3 mmoL/L (3.5-5.1)
[2018-07-02 07:33] LABS: Basophils % 0.1 % (0.1-2.0); Hematocrit 39.2 % (37.0-47.0); Hemoglobin 11.2 g/dL (12.2-16.2); Lymphocytes # 0.6 K/mm3 (0.7-4.5); Mean Corpuscular HGB Conc 28.6 g/dL (31.8-35.4); Mean Corpuscular Hemoglobin 29.5 pg (27.0-31.2); Mean Corpuscular Volume 102.9 fl (81-99); Mean Platelet Volume 7.4 fl (7.4-10.4); Monocytes # 0.3 K/mm3 (0.1-1.0); Monocytes % 3.7 % (1.7-9.3); Neutrophils # 6.7 K/mm3 (1.8-7.8); Neutrophils % 88.2 % (37.0-80.0); Platelet Count 207 K/mm3 (142-424); Red Blood Count 3.81 M/mm3 (4.20-5.40); Red Cell Distribution Width 13.8 % (11.5-17.5); White Blood Count 7.6 K/mm3 (4.8-10.8)
--- NOTE | 2018-07-02 07:37 | Pharmacy Consult Notes ---
[facility] Pharmacy VTE Monitoring - Patient Demographics Admission date: 07/01/18 Report Date: 07/02/18 Time: 07:36 Allergies/Adverse Reactions: Patient Allergies orange juice Allergy (Mild, Verified 07/01/18 14:35) Rash Height: 1.55 m Weight: 55.48 kg Patient Problems: Current Active Problems Altered mental status (Acute) Acute respiratory failure with hypoxia and hypercarbia (Acute) Tobacco use disorder (Acute) Acute exacerbation of chronic obstructive airways disease (Acute) Obesity (BMI 30.0-34.9) (Acute) Bipolar 1 disorder (Acute) Hyperlipidemia associated with type 2 diabetes mellitus (Acute) Diabetes mellitus (Acute) Anxiety (Chronic) - VTE Risk Labs: VTE Related Lab Results Hgb 12.1 g/dL (12.2-16.2) L 07/01/18 12:30 Hct 39.7 % (37.0-47.0) 07/01/18 12:30 Plt Count 213 K/mm3 (142-424) 07/01/18 12:30 BUN 31 mg/dL (7-18) H 07/02/18 06:40 Creatinine 0.60 mg/dL (0.55-1.02) 07/02/18 06:40 Estimated Creat Clear 48 mL/min (50-200) 07/02/18 06:40 Was VTE Risk Assessment Performed: Yes VTE Score: 3 VTE Risk Level: Low Risk - Prophylaxis VTE Prophylaxis Ordered?: Yes Types of VTE Prophylaxis: Pharmacological Pharmacologic Type: Enoxaparin - VTE Diagnosis Confirmed Treatment or plan recommended: Continue Current Treatment
[2018-07-02 09:46] LABS: Lymphocytes % 7 % (10-50); Macrocytosis 1+; Monocytes % 4 % (2-9); Neutrophils % 84 % (42-76); Stomatocytes 1+; Total Cells Counted 100
[2018-07-02 14:35] LABS: ABG Base Excess 17.1 mmol/L (-2.4-2.3); ABG HCO3 41.9 mmhg (22.0-26.0); ABG Oxygen Saturation 90 % (90-100); ABG PO2 56.3 mmhg (80-100); ABG TCO2 44.1 mmhg (23-27)
[2018-07-02 14:38] LABS: Allen's Test Acceptable; Oxygen 40L %
[2018-07-02 14:40] LABS: ABG PCO2 69.7 mmhg (35.0-45.0)
--- NOTE | 2018-07-02 16:53 | History & Physical Report ---
*Admission Date: 07/01/18 *Chief complaint: sob *History of present illness: this pt was sent from [facility] for increased sob and change in mental status - pt with known copd and noncompliance with treatment - in the ed pt was found to be in resp distress with elevated co2 and was admitted [facility] History I have reviewed the patient's past medical history: Yes Medical History: Reports:: Anxiety, Chronic Obstructive Pulmonary Disease (COPD), Diabetes Mellitus Type 2, Hyperlipidemia, Hypertension Denies:: Cancer, Diabetes Mellitus Type 1, Internal Pacemaker, MRSA *Have you ever received a pneumonia vaccine?: Yes *Have you received a flu vaccine this season?: Yes Other Medical History: Reports: Arthritis, Sinus Problems Other Surgeries: Yes: Colonoscopy. No: Pacemaker Amputation: No Fractures: No - *Social History Smoking Status: Current every day smoker Tobacco Type: cigarettes, cigars # Packs/Day (cigarettes): 1 #Yrs smoked (if former smoker): 40 Alcohol Intake: never Alcohol Intake Frequency:: 3 or more drinks per day Substance Use Type: denies use *Occupational Status:: retired Housing: apartment Household Members: none *Travel in the last 8 weeks: None - Psychiatric History Expresses thoughts of harming self/others: None Suicide Plan Description: No Plan Pschychiatric History:: Reports:: Anxiety, Bipolar Disorder Family Hx:: Unable to obtain Review of Systems - Review of Systems Review of systems:: pertinent systems reviewed and negative unless documented below - Constitutional Reports lack of energy, Denies fever(s) - Eyes Denies change in vision - ENT Denies nasal congestion, Denies sore throat - *Cardiovascular Denies chest pain at rest - *Respiratory Reports cough, Reports shortness of breath, Reports wheezing, Denies coughing up blood - *Gastrointestinal Denies abdominal pain - *Genitourinary Denies blood in urine - *Musculoskeletal Reports joint pain, Reports limited joint movement, Denies joint swelling - Integumentary/Breasts Denies rash - *Neurologic Denies seizure-like activity - Psychiatric Reports anxiety Meds Home Medications Medication Instructions Recorded Confirmed Type Calcium Carbonate [Tums 500mg 1,000 mg PO QIDP PRN 07/01/18 07/02/18 History chewtab] Dexamethasone 2 mg PO DAILY 07/01/18 07/01/18 History Nicotine [Nicotine Patch 21 mg TD DAILY 07/01/18 07/01/18 History 21mg/24hrs] Quetiapine Fumarate [Seroquel 25mg 25 mg PO BID 07/01/18 07/01/18 History tablet] raNITIdine HCl [Ranitidine HCl] 150 mg PO HS 07/01/18 07/01/18 History Morphine Sulfate [Roxanol 20mg/mL 0.25 ml PO Q4HP PRN 07/02/18 07/02/18 History 1mL oral soln UDC] Allergies Allergy/AdvReac Type Severity Reaction Status Date / Time orange juice Allergy Mild Rash Verified 07/01/18 14:35 Exam Vital signs and Labs for Last 24 Hours: Temp Pulse Resp BP Pulse Ox 98.5 F 98 H 24 133/92 H 89 L 07/02/18 15:47 07/02/18 15:47 07/02/18 15:47 07/02/18 15:47 07/02/18 15:47 Laboratory Results - last 24 hr 07/01/18 17:00: Troponin I < 0.02 07/01/18 18:12: Specimen Source R/r, O2 % 70, ABG pH 7.26 L, ABG pCO2 103.9 H, ABG pO2 87.3, ABG HCO3 45.9 H, ABG Total CO2 49.1 H, ABG O2 Saturation 97, ABG Base Excess 18.9 H, Jaylen Test Y 07/01/18 20:05: Troponin I < 0.02 07/01/18 21:02: POC Glucose 229 H 07/02/18 06:07: POC Glucose 182 H 07/02/18 06:40: WBC 7.6, RBC 3.81 L, Hgb 11.2 L, Hct 39.2, MCV 102.9 H, MCH 29.5, MCHC 28.6 L, RDW 13.8, Plt Count 207, MPV 7.4, Neut % (Auto) 88.2 H, Lymph % (Auto) 8.0 L, [place] % (Auto) 3.7, Eos % (Auto) 0.0 L, Baso % (Auto) 0.1, Neut # (Auto) 6.7, Lymph # (Auto) 0.6 L, [place] # (Auto) 0.3, Eos # (Auto) 0.0, Baso # (Auto) 0.0, Total Counted 100, Neutrophils % (Manual) 84 H, Band Neutrophils % 5.0, Lymphocytes % (Manual) 7 L, Monocytes % (Manual) 4, Platelet Estimate Normal, Macrocytosis 1+, Stomatocytes 1+ 07/02/18 06:40: Sodium 144, Potassium 4.3, Chloride 103, Carbon Dioxide 44 H*, Anion Gap 1.3 L, BUN 31 H, Creatinine 0.60, Estimated Creat Clear 48, Estimated GFR 100, Est GFR ( Amer) 121, Glucose 199 H, Calcium 9.0, Magnesium 2.5 H 07/02/18 11:09: POC Glucose 180 H 07/02/18 13:37: Specimen Source Left brachial, O2 % 40l, ABG pH 7.40, ABG pCO2 6 9.7 H, ABG pO2 56.3 L, ABG HCO3 41.9 H, ABG Total CO2 44.1 H, ABG O2 Saturation 90, ABG Base Excess 17.1 H, Jaylen Test Acceptable 07/02/18 16:04: POC Glucose 258 H I & O for Last 24 hours: Intake & Output 06/30/18 07/01/18 07/02/18 07/03/18 11:59 11:59 11:59 11:59 Intake Total 1275 / 1275 801 / 801 Balance 1275 / 1275 801 / 801 Weight 122 lb 5 oz 122 lb 4.999 oz Microbiology Reports for the Last 24 Hours: Microbiology 07/02/18 10:15 Sputum - Expectorated Sputum Gram Stain - Final - Constitutional no acute distress, somnolent - *Routine HEENT Exam Head: Present: normocephalic Eye: Present: EOMI, PERRL ENT: Present: mucous membranes dry - *Routine Neck Exam Present: supple. Absent: JVD - *Routine Respiratory Exam Present: decreased breath sounds, wheezes, distant breath sounds - *Routine Cardiovascular Exam Present: RRR, murmur, S4 - *Routine Abdominal Exam Present: soft - *Routine Extremities Exam Absent: calf tenderness - *Routine Skin Exam Present: intact - *Routine Neurological Exam Present: alert, oriented X3, CN II-XII intact - Routine Psychiatric Exam Present: normal affect Assessment and Plan (1) Respiratory failure Current visit: Yes Status: Acute Category: Medical Code(s): J96.90 - Respiratory failure, unspecified, unspecified whether with hypoxia or hypercapnia (2) Acute exacerbation of chronic obstructive airways disease Current visit: Yes Status: Acute Category: Medical Code(s): J44.1 - Chronic obstructive pulmonary disease with (acute) exacerbation (3) Bipolar 1 disorder Current visit: Yes Status: Acute Category: Medical Code(s): F31.9 - Bipolar disorder, unspecified (4) Hyperlipidemia associated with type 2 diabetes mellitus Current visit: Yes Status: Acute Category: Medical Code(s): E11.69 - Type 2 diabetes mellitus with other specified complication; E78.5 - Hyperlipidemia, unspecified (5) Diabetes mellitus Current visit: Yes Status: Acute Qualifiers: Diabetes mellitus type: type 2 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: with middle or intermediate school principal use Diabetes mellitus complication status: with unspecified complications Qualified Code(s): E11.8 - Type 2 diabetes mellitus with unspecified complications; 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
--- NOTE | 2018-07-03 08:53 | Discharge Summary ---
General - General Admission date:: 07/01/18 Discharge date: 07/03/18 HPI HPI: this pt was sent from [facility] for increased sob and change in mental status - pt with known copd and noncompliance with treatment - in the ed pt was found to be in resp distress with elevated co2 and was admitted Hospital Course Hospital Course: chest x ray:IMPRESSION: Cardiomegaly with chronic changes with infiltrate in the lung bases Patient's alert states she is feeling better Will discharge back to [facility] today on oral steroids for 2-week course. Objective Vital signs: Temp Pulse Resp BP Pulse Ox 98.0 F 60 21 122/50 L 91 L 07/03/18 08:00 07/03/18 08:00 07/03/18 08:00 07/03/18 08:00 07/03/18 08:00 no acute distress - *Routine HEENT Exam Head: Present: normocephalic Eye: Present: PERRL ENT: Present: mucous membranes moist - *Routine Respiratory Exam Present: wheezes - *Routine Cardiovascular Exam Present: RRR - *Routine Abdominal Exam Present: soft, normoactive bowel sounds - *Routine Extremities Exam Present: full ROM - *Routine Skin Exam Present: intact - *Routine Neurological Exam Present: alert, oriented X3 - Routine Psychiatric Exam Present: normal affect Results Labs on day of discharge: Labs from last 24 hours 07/03/18 07/02/18 07/02/18 06:44 21:09 16:04 Total Counted Neutrophils % (Manual) Band Neutrophils % Lymphocytes % (Manual) Monocytes % (Manual) Platelet Estimate Macrocytosis Stomatocytes Specimen Source O2 % ABG pH ABG pCO2 ABG pO2 ABG HCO3 ABG Total CO2 ABG O2 Saturation ABG Base Excess Jaylen Test POC Glucose 219 H 162 H 258 H 07/02/18 07/02/18 07/02/18 13:37 11:09 06:40 Total Counted 100 Neutrophils % (Manual) 84 H Band Neutrophils % 5.0 Lymphocytes % (Manual) 7 L Monocytes % (Manual) 4 Platelet Estimate Normal Macrocytosis 1+ Stomatocytes 1+ Specimen Source Left brachial O2 % 40l ABG pH 7.40 ABG pCO2 69.7 H ABG pO2 56.3 L ABG HCO3 41.9 H ABG Total CO2 44.1 H ABG O2 Saturation 90 ABG Base Excess 17.1 H Jaylen Test Acceptable POC Glucose 180 H - Additional Comments Rounded with Dr. Dennison all orders per Jesi DS: Diagnosis - Discharge Diagnosis (1) Respiratory failure Status: Acute (2) Acute exacerbation of chronic obstructive airways disease Status: Acute (3) Bipolar 1 disorder Status: Acute (4) Hyperlipidemia associated with type 2 diabetes mellitus Status: Acute (5) Diabetes mellitus Status: Acute (6) Anxiety Status: Chronic (7) Cardiomegaly Status: Acute (8) Compression fracture of lumbar vertebra Status: Acute (9) Acute and chronic respiratory failure ([id number]) Status: Acute Discharge Plan - Patient Discharge Instructions ACTIVITY: Continue current activity DIET: continue same diet Patient Instructions: DI for Chronic Obstructive Pulmonary Disease, DI for Respiratory Failure, DI for Altered Mental Status - Follow up Plan Follow up with: Tracey Duran APRN [Advanced Practice Nurse] - Disposition: Xfer SNF Home Medications: Home Medications Medication Instructions Recorded Confirmed Type Calcium Carbonate [Tums 500mg 1,000 mg PO QIDP PRN 07/01/18 07/02/18 History chewtab] Dexamethasone 2 mg PO DAILY 07/01/18 07/01/18 History Nicotine [Nicotine Patch 21 mg TD DAILY 07/01/18 07/01/18 History 21mg/24hrs] Quetiapine Fumarate [Seroquel 25mg 25 mg PO BID 07/01/18 07/01/18 History tablet] raNITIdine HCl [Ranitidine HCl] 150 mg PO HS 07/01/18 07/01/18 History Morphine Sulfate [Roxanol 20mg/mL 0.25 ml PO Q4HP PRN 07/02/18 07/02/18 History 1mL oral soln UDC] Prescriptions/Medication Reconciliation: Continued Quetiapine Fumarate [Seroquel 25mg tablet] 25 mg PO BID raNITIdine HCl [Ranitidine HCl] 150 mg PO HS Dexamethasone 2 mg PO DAILY Calcium Carbonate [Tums 500mg chewtab] 1,000 mg PO QIDP PRN PRN Reason: Heartburn Morphine Sulfate [Roxanol 20mg/mL 1mL oral soln UDC] 0.25 ml PO Q4HP PRN PRN Reason: Shortness Of Breath Nicotine [Nicotine Patch 21mg/24hrs] 21 mg TD DAILY
== END 2018-07-03 11:25 | disposition hospice, inpatient (51) | DRG 189 ==
LOC: ER 12:07 → 2ND 13:39
PROVIDERS: ADMIT Emergency Medicine; ATTEND Emergency Medicine
DX: Z79.4 Long term (current) use of insulin; Z87.01 Personal history of pneumonia (recurrent); I50.9 Heart failure, unspecified; J96.21 Acute and chronic respiratory failure with hypoxia; Z72.0 Tobacco use; E78.5 Hyperlipidemia, unspecified; F31.9 Bipolar disorder, unspecified; Z79.899 Other long term (current) drug therapy; J44.1 Chronic obstructive pulmonary disease with (acute) exacerbation; I11.0 Hypertensive heart disease with heart failure; E11.9 Type 2 diabetes mellitus without complications; J96.22 Acute and chronic respiratory failure with hypercapnia; Z91.19 Patient's noncompliance with other medical treatment and regimen
CPT/HCPCS: 36415; 71010; 71045; 80048; 80053; 82803; 82962; 83605; 83735; 83880; 84484; 85007; 85025; 87040; 87070; 87205; 93005; 94640; 94761; 96365; 96375; 99284; J1956

== ENCOUNTER 2018-12-17 14:30 | Observation (INO) ==
[2018-12-17 15:17] LABS: Basophils % 0.1 % (0.1-2.0); Eosinophils # 0.1 K/mm3 (0.0-0.4); Eosinophils % 1.2 % (0.1-12.0); Hematocrit 39.3 % (37.0-47.0); Hemoglobin 11.1 g/dL (12.2-16.2); Lymphocytes # 1.7 K/mm3 (0.7-4.5); Lymphocytes % 17.1 % (10-50); Mean Corpuscular HGB Conc 28.2 g/dL (31.8-35.4); Mean Corpuscular Volume 97.7 fl (81-99); Mean Platelet Volume 7.4 fl (7.4-10.4); Monocytes # 0.7 K/mm3 (0.1-1.0); Monocytes % 6.8 % (1.7-9.3); Neutrophils # 7.5 K/mm3 (1.8-7.8); Neutrophils % 74.7 % (37.0-80.0); Platelet Count 227 K/mm3 (142-424); Red Blood Count 4.03 M/mm3 (4.20-5.40); Red Cell Distribution Width 13.7 % (11.5-17.5); White Blood Count 10.1 K/mm3 (4.8-10.8)
[2018-12-17 15:31] LABS: Alanine Aminotransferase 18 U/L (12-78); Albumin Level 2.8 gm/dL (3.4-5.0); Albumin/Globulin Ratio 0.6 (1.1-1.8); Alkaline Phosphatase 75 U/L (46-116); Aspartate Amino Transferase 9 U/L (15-37); Bilirubin,Total 0.4 mg/dL (0.2-1.0); Blood Urea Nitrogen 20 mg/dL (7-18); Calcium 8.4 mg/dL (8.5-10.1); Chloride 99 mmol/L (98-107); Globulin 4.5 gm/dl (1.3-3.2); Glucose 244 mg/dL (74-106); Sodium 144 mmol/L (136-145); Total Protein,Serum 7.3 gm/dL (6.4-8.2)
--- NOTE | 2018-12-17 15:32 | Emergency Department Note ---
ED Disposition Clinical Impression: Acute respiratory failure with hypoxia and hypercapnia, COPD exacerbation Disposition: Admitted As Inpatient Condition on Discharge: Serious - Critical Care Critical Care Time: Yes Attestation: On 12/17/18, the high probability of a clinically significant, sudden or life threatening deterioration of the following system(s) required my full and direct attention, intervention and personal management. The time I documented below is in addition to time spent performing reported procedures but includes the following listed in this critical care notation. Total Critical Care Time: 35 Vital system(s) involved:: Respiratory Failure My critical care processes included: Assessment & monitoring of V/S, Initial and Re-exams, Data Review/Interpretation, Coordinating Care, Medication Orders and management, Documentation Medical Decision Making - José Miguel Inquiry Pt receiving controlled substance: No Vital Signs: 12/17/18 14:40 12/17/18 16:35 Temperature 98.7 F Temperature Source Oral Pulse Rate 103 H Pulse Rate [Right Radial] 97 H Respiratory Rate 22 Blood Pressure [Right Arm] 150/118 H Blood Pressure Mean [Right Arm] 128 Blood Pressure Source [Right Arm] Automatic Cuff Blood Pressure Position [Right Arm] Sitting 02 Sat by Pulse Oximetry 98 Oxygen Delivery Method Nasal Cannula - Lab Data Lab Results 12/17/18 15:00: WBC 10.1, RBC 4.03 L, Hgb 11.1 L, Hct 39.3, MCV 97.7, MCH 27.6, MCHC 28.2 L, RDW 13.7, Plt Count 227, MPV 7.4, Neut % (Auto) 74.7, Lymph % (Auto ) 17.1, [place] % (Auto) 6.8, Eos % (Auto) 1.2, Baso % (Auto) 0.1, Neut # (Auto) 7.5, Lymph # (Auto) 1.7, [place] # (Auto) 0.7, Eos # (Auto) 0.1, Baso # (Auto) 0.0 12/17/18 15:00: Sodium 144, Potassium 4.4, Chloride 99, Carbon Dioxide 47 H*, A nion Gap 2.4 L, BUN 20 H, Creatinine 0.76, Estimated Creat Clear 63, Estimated GFR 76, Est GFR ( Amer) 92, Glucose 244 H, Calcium 8.4 L, Total Bilirubin 0.4, AST 9 L, ALT 18, Alkaline Phosphatase 75, Troponin I < 0.02, Total Protein 7.3, Albumin 2.8 L, Globulin 4.5 H, Albumin/Globulin Ratio 0.6 L 12/17/18 15:00: Lactate 0.7 12/17/18 15:51: Specimen Source Right radial, O2 % 3l, ABG pH 7.29 L, ABG pCO2 95.0 H, ABG pO2 85.7, ABG HCO3 44.3 H, ABG Total CO2 47.3 H, ABG O2 Saturation 96, ABG Base Excess 17.7 H, Jaylen Test Acceptable Result diagrams: 12/17/18 15:00 12/17/18 15:00 Orders (Tests/Meds): ED MEDICATIONS Generic Name Dose Route Start Last Admin Trade Name Freq PRN Reason Stop Dose Admin Azithromycin 500 mg/ Sodium 250 mls @ 250 mls/hr 12/17/18 16:30 12/17/18 16:48 Chloride IV 12/31/18 16:29 250 mls/hr Q24H TRACEY Administration Protocol Ceftriaxone Sodium 1 gm/ 50 mls @ 100 mls/hr 12/17/18 17:00 Sodium Chloride IV 12/31/18 16:59 Q24H TRACEY Protocol Discontinued Medications Generic Name Dose Route Start Last Admin Trade Name Freq PRN Reason Stop Dose Admin Albuterol/Ipratropium 3 ml 12/17/18 15:54 12/17/18 16:30 Duoneb 3ml Neb IH 12/17/18 15:55 3 ml ONCE ONE Administration Methylprednisolone Sodium Succinate 125 mg 12/17/18 15:54 12/17/18 16:24 Solu-Medrol 125mg/2ml Vial IV 12/17/18 15:55 125 mg ONCE ONE Administration ORDERS Category Date Time Status Blood Culture Stat Micro 12/17/18 15:00 Received - Radiology Data #1 Image(s): Chest Image Reviewed: Yes I have reviewed radiologist's interpretation FINDINGS: The cardiomediastinal silhouette and pulmonary vascularity are within normal limits. The lucent changes scattered throughout the lung [place] greater in the upper lobes especially on the left remain stable. Also stable are the areas of interstitial prominence. There are a few punctate stable calcified granulomas in the lung [place] bilaterally. There is no pleural effusion or pneumothorax. No acute bony abnormalities. IMPRESSION: No change or acute process. COPD. Interstitial fibrosis. Dictated by: Prem Glaser 12/17/2018 16:12 Electronically signed by Prem Glaser in [place] 12/17/2018 16:12 - ECG Data Tracing #1 EKG interpreted by Jermain Chambers MD: Rhythm: sinus Rate: 97 [place]: normal Ectopy: none Conduction: normal ST Segment Changes: none T Wave Changes: none Q Waves: none No evidence of acute ischemia or injury Normal electrocardiogram - Physician Consults Physician Consulted: Jesi Time: 16:52 Reason -: Admission Comment/Response: Agrees to admit the patient to the hospital. We discussed the patient's clinical information, including history, exam, laboratory and radiology results and ED course. Per hospital procedure, I will write temporary bridge inpatient orders on the patient. Specific orders requested by the admitting physician: Rocephin and Zithromax, BiPAP, continue steroids and nebulizer treatments. General Adult HPI - General Chief complaint: Shortness of Breath/Dyspnea Stated complaint: SOA Time Seen by Provider: 12/17/18 15:45 Mode of Arrival: EMS Limitations: No Limitations Description of Symptoms (Recalled from ER Triage Doc. by RN): PT SENT WITH REPORTED O2 SAT OF 75% ON 3LPM VIA MS - History of Present Illness HPI narrative: Patient sent by ambulance from [facility] for low pulse oximetry of 75% on 3 L nasal cannula. She has COPD and is chronically oxygen dependent. EMS reported that she has had a very long oxygen tubing to supply her nasal cannula and when they put her on their own oxygen at 3 L nasal cannula with a shorter hose, her pulse ox was in the 90s. The patient says her breathing is "better now". She says she feels "bad all over". She has no specific complaint. She is a poor historian. - Related Data Home Medications Medication Instructions Recorded Confirmed Calcium Carbonate [Tums 500mg 1,000 mg PO QIDP PRN 07/01/18 12/17/18 chewtab] Nicotine [Nicotine Patch 21 mg TD DAILY 07/01/18 12/17/18 21mg/24hrs] Quetiapine Fumarate [Seroquel 25mg 25 mg PO BID 07/01/18 12/17/18 tablet] raNITIdine HCl [Ranitidine HCl] 150 mg PO HS 07/01/18 12/17/18 Morphine Sulfate [Roxanol 20mg/mL 0.25 ml PO Q4HP PRN 07/02/18 12/17/18 1mL oral solution UDC] Budesonide/Formoterol Fumarate 120 mcg INHALATION BID 12/17/18 12/17/18 [Symbicort 160-4.5 Mcg Inhaler] Gabapentin [Gabapentin 100mg Cap] 100 mg PO TID 12/17/18 12/17/18 Allergies Allergy/AdvReac Type Severity Reaction Status Date / Time orange juice Allergy Mild Rash Verified 11/11/18 13:20 [facility] History - Hepatitis A Screen Drug use history?: No High risk sexual behaviors?: No History of sexually transmitted infection?: No Currently employed?: No Childcare worker?: No Do you have indoor plumbing?: Yes Do you have electricity?: Yes Attestation statement:: This patient has been screened for Hepatitis A risk factors. I have reviewed the patient's past medical history: Yes Medical History: Reports:: Anxiety, Chronic Obstructive Pulmonary Disease (COPD), Diabetes Mellitus Type 2, Hyperlipidemia, Hypertension Denies:: Cancer, Diabetes Mellitus Type 1, Internal Pacemaker, MRSA Other Medical History: Reports: Arthritis, Sinus Problems Other Surgeries: Yes: Colonoscopy. No: Pacemaker Amputation: No Fractures: No - Social History Smoking Status: Never smoker Tobacco Type: cigarettes, cigars # Packs/Day (cigarettes): 1 #Yrs smoked (if former smoker): 40 Alcohol Intake: never Alcohol Intake Frequency:: 3 or more drinks per day Substance Use Type: denies use Occupational Status: retired Housing: custodial Household Members: none Comment: I took care of her who had COPD and possible cancer. He several years ago now and she has moved from the home they had to an apartment. She has had a homeless woman coming in and out cooking for her intermittently but has no other help from any relatives. She has a puppy at home. - Psychiatric History Pschychiatric History:: Reports:: Anxiety, Bipolar Disorder Family Hx:: Unable to obtain ROS Obtained: Yes unobtainable due to mental condition Physical Exam - General General appearance: other Comment: When I arrived she is sleeping. When awakened she knows that she is in the hospital in [place]. She says the year is 2015. She appears in no acute distress. - Head Head exam: atraumatic, normocephalic - Eye Eye exam: Present: normal appearance, EOMI - ENT ENT exam: Present: normal exam, mucous membranes moist - Neck Neck exam: Present: normal inspection, trachea midline - Chest Chest inspection: Present: normal inspection, symmetric chest wall rise - Respiratory Respiratory exam: Present: wheezes - Cardiovascular Cardiovascular exam: Present: regular rate, normal rhythm, normal heart sounds - Abdominal Exam Abdominal exam: Present: soft, normal bowel sounds. Absent: distention, tenderness, guarding - Extremities Exam Extremities exam: Present: normal inspection - Neurological Exam Neurological exam: Present: alert - Expanded Neurological Exam Patient oriented to: Present: person, place. Absent: time Speech: Present: fluid speech - Skin Skin exam: Present: warm, dry
[2018-12-17 15:36] LABS: Anion Gap 2.4 mEq/L (5-15); Carbon Dioxide 47 mmol/L (21.0-32.0)
[2018-12-17 16:11] LABS: ABG Base Excess 17.7 mmol/L (-2.4-2.3); ABG HCO3 44.3 mmhg (22.0-26.0); ABG Oxygen Saturation 96 % (90-100); ABG PH 7.29 mmol/L (7.35-7.45); ABG PO2 85.7 mmhg (80-100); ABG TCO2 47.3 mmhg (23-27)
[2018-12-17 16:12] LABS: Allen's Test Acceptable; Oxygen 3L %
[2018-12-17 22:17] LABS: ABG Base Excess 15.1 mmol/L (-2.4-2.3); ABG HCO3 40.9 mmhg (22.0-26.0); ABG Oxygen Saturation 93 % (90-100); ABG PH 7.34 mmol/L (7.35-7.45); ABG TCO2 43.2 mmhg (23-27)
[2018-12-17 22:18] LABS: Allen's Test Acceptable; Oxygen 45% %
[2018-12-17 22:21] LABS: ABG PCO2 77.1 mmhg (35.0-45.0)
--- NOTE | 2018-12-18 07:47 | Pharmacy Consult Notes ---
[facility] Pharmacy VTE Monitoring - Patient Demographics Admission date: 12/17/18 Report Date: 12/18/18 Time: 07:47 Allergies/Adverse Reactions: Patient Allergies orange juice Allergy (Mild, Verified 11/11/18 13:20) Rash Height: 1.65 m Weight: 75.098 kg Patient Problems: Current Active Problems COPD exacerbation (Acute) Acute respiratory failure with hypoxia and hypercarbia (Acute) - VTE Risk Labs: VTE Related Lab Results Hgb 11.1 g/dL (12.2-16.2) L 12/17/18 15:00 Hct 39.3 % (37.0-47.0) 12/17/18 15:00 Plt Count 227 K/mm3 (142-424) 12/17/18 15:00 BUN 20 mg/dL (7-18) H 12/17/18 15:00 Creatinine 0.76 mg/dL (0.55-1.02) 12/17/18 15:00 Estimated Creat Clear 63 mL/min (50-200) 12/17/18 15:00 Was VTE Risk Assessment Performed: Yes VTE Score: 10 VTE Risk Level: Moderate Risk - Prophylaxis VTE Prophylaxis Ordered?: Yes Types of VTE Prophylaxis: TEDS Knee High Location of Applied Device: Bilateral Lower Extremeties - VTE Diagnosis Confirmed Treatment or plan recommended: Continue Current Treatment
[2018-12-18 09:30] LABS: ABG Base Excess 12.8 mmol/L (-2.4-2.3); ABG HCO3 37.2 mmhg (22.0-26.0); ABG PH 7.43 mmol/L (7.35-7.45)
[2018-12-18 09:33] LABS: Oxygen 3LPM %
[2018-12-18 09:35] LABS: ABG Oxygen Saturation 88 % (90-100); ABG PCO2 57.9 mmhg (35.0-45.0); ABG PO2 47.6 mmhg (80-100)
--- NOTE | 2018-12-18 14:52 | History & Physical Report ---
*Admission Date: 12/17/18 *Chief complaint: sob *History of present illness: 65-year-old female presented to the ER with complaints of increased shortness of air and low oxygen. Patient is a resident at [facility]. Patient states she was preparing candy for the little trigger treaters when she ate an entire bag of chocolate candy bars and became anxious and short of breath after she ate it. Patient was brought into the ER hypoxic and anxious. Patient was admitted placed on BiPAP. [facility] History I have reviewed the patient's past medical history: Yes Medical History: Reports:: Anxiety, Chronic Obstructive Pulmonary Disease ([place] PD), Diabetes Mellitus Type 2, Hyperlipidemia, Hypertension Denies:: Cancer, Diabetes Mellitus Type 1, Internal Pacemaker, MRSA *Have you ever received a pneumonia vaccine?: Yes (12/09/17) *Have you received a flu vaccine this season?: No Other Medical History: Reports: Arthritis, Sinus Problems Other Surgeries: Yes: Colonoscopy, . No: Pacemaker Amputation: No Fractures: No - *Social History Smoking Status: Former smoker Tobacco Type: cigarettes # Packs/Day (cigarettes): 1 #Yrs smoked (if former smoker): 40 Smoking End Date: 03/18/2017 Alcohol Intake: never Alcohol Intake Frequency:: 3 or more drinks per day Substance Use Type: denies use *Occupational Status:: retired Housing: group home Household Members: none *Travel in the last 8 weeks: None - Psychiatric History Pschychiatric History:: Reports:: Anxiety, Bipolar Disorder Family Hx:: Unable to obtain Review of Systems - Review of Systems Review of systems:: pertinent systems reviewed and negative unless documented below - Constitutional Denies fatigue, Denies fever(s) - Eyes Denies change in vision - ENT Denies change in voice, Denies nasal congestion - *Cardiovascular Reports shortness of breath, Denies chest pain with activity - *Respiratory Reports chest congestion, Reports shortness of breath - *Gastrointestinal Denies nausea, Denies vomiting - *Genitourinary Denies urinary urgency - *Musculoskeletal Denies loss of height - Integumentary/Breasts Denies rash - *Neurologic Denies dizziness, Denies fainting - Psychiatric Denies anxiety - Endocrine Denies flushing - Hematologic/Lymphatic Denies enlarged lymph nodes - Allergic/Immunologic Denies lip swelling Meds Home Medications Medication Instructions Recorded Confirmed Type Calcium Carbonate [Tums 500mg 1,000 mg PO QIDP PRN 07/01/18 12/17/18 History chewtab] Nicotine [Nicotine Patch 21 mg TD DAILY 07/01/18 12/17/18 History 21mg/24hrs] Quetiapine Fumarate [Seroquel 25mg 25 mg PO BID 07/01/18 12/17/18 History tablet] raNITIdine HCl [Ranitidine HCl] 150 mg PO HS 07/01/18 12/17/18 History Morphine Sulfate [Roxanol 20mg/mL 0.25 ml PO Q4HP PRN 07/02/18 12/17/18 History 1mL oral solution UDC] Budesonide/Formoterol Fumarate 2 puffs IH BID 12/17/18 12/18/18 History [Symbicort 160-4.5 Mcg Inhaler] Gabapentin [Gabapentin 100mg Cap] 100 mg PO TID 12/17/18 12/17/18 History Acetaminophen [Acetaminophen Extra 500 mg PO Q4HP PRN 12/18/18 12/18/18 History Strength] Ipratropium/Albuterol Sulfate 3 ml IH Q3HP PRN 12/18/18 12/18/18 History [Duoneb 3mL neb] Ondansetron HCl [Ondansetron 4mg 4 mg PO Q8HP PRN 12/18/18 12/18/18 History Tablet] Allergies Allergy/AdvReac Type Severity Reaction Status Date / Time orange juice Allergy Mild Rash Verified 11/11/18 13:20 Exam Vital signs and Labs for Last 24 Hours: Temp Pulse Resp BP Pulse Ox 97.9 F 81 20 109/55 L 90 L 12/18/18 08:00 12/18/18 14:02 12/18/18 08:00 12/18/18 08:00 12/18/18 08:00 Laboratory Results - last 24 hr 12/17/18 15:00: WBC 10.1, RBC 4.03 L, Hgb 11.1 L, Hct 39.3, MCV 97.7, MCH 27.6, MCHC 28.2 L, RDW 13.7, Plt Count 227, MPV 7.4, Neut % (Auto) 74.7, Lymph % (Auto) 17.1, [place] % (Auto) 6.8, Eos % (Auto) 1.2, Baso % (Auto) 0.1, Neut # (Auto) 7.5, Lymph # (Auto) 1.7, [place] # (Auto) 0.7, Eos # (Auto) 0.1, Baso # (Auto) 0.0 12/17/18 15:00: Sodium 144, Potassium 4.4, Chloride 99, Carbon Dioxide 47 H*, Anion Gap 2.4 L, BUN 20 H, Creatinine 0.76, Estimated Creat Clear 63, Estimated GFR 76, Est GFR ( Amer) 92, Glucose 244 H, Calcium 8.4 L, Total Bilirubin 0.4, AST 9 L, ALT 18, Alkaline Phosphatase 75, Troponin I < 0.02, Total Protein 7.3, Albumin 2.8 L, Globulin 4.5 H, Albumin/Globulin Ratio 0.6 L 12/17/18 15:00: Lactate 0.7 12/17/18 15:51: Specimen Source Right radial, O2 % 3l, ABG pH 7.29 L, ABG pCO2 95.0 H, ABG pO2 85.7, ABG HCO3 44.3 H, ABG Total CO2 47.3 H, ABG O2 Saturation 96, ABG Base Excess 17.7 H, Jaylen Test Acceptable 12/17/18 22:00: Specimen Source Left radial, O2 % 45%, ABG pH 7.34 L, ABG pCO2 77.1 H, ABG pO2 65.0 L, ABG HCO3 40.9 H, ABG Total CO2 43.2 H, ABG O2 Saturation 93, ABG Base Excess 15.1 H, Jaylen Test Acceptable 12/17/18 22:04: POC Glucose 226 H 12/18/18 06:32: POC Glucose 224 H 12/18/18 09:00: Specimen Source L brachial, O2 % 3lpm, ABG pH 7.43, ABG pCO2 57.9 H, ABG pO2 47.6 L, ABG HCO3 37.2 H, ABG Total CO2 39.0 H, ABG O2 Saturation 88 L, ABG Base Excess 12.8 H 12/18/18 11:37: POC Glucose 334 H* I & O for Last 24 hours: Intake & Output 12/16/18 12/17/18 12/18/1804/19 11:59 11:59 11:59 11:59 Intake Total 120 / 120 480 / 480 Balance 120 / 120 480 / 480 Weight 165 lb 9 oz - Constitutional no acute distress - *Routine HEENT Exam Head: Present: normocephalic Eye: Present: PERRL ENT: Present: mucous membranes moist - *Routine Neck Exam Present: supple, full ROM - *Routine Respiratory Exam Present: decreased breath sounds, rhonchi, wheezes - *Routine Cardiovascular Exam Present: RRR - *Routine Abdominal Exam Present: soft, normoactive bowel sounds. Absent: tenderness - *Routine Extremities Exam Present: full ROM. Absent: cyanosis, clubbing, edema - *Routine Skin Exam Present: intact, warm. Absent: rash - *Routine Neurological Exam Present: alert, oriented X3 - Routine Psychiatric Exam Present: normal affect Assessment and Plan - Assessment and plan all Dx Assessment and Plan for all problems:: Rounded with Dr. Dennison all orders per Jesi Remove BiPAP leave on O2 and repeat blood gas
--- NOTE | 2018-12-19 09:06 | Discharge Summary ---
General - General Admission date:: 12/17/18 Discharge date: 12/19/18 HPI HPI: 65-year-old female presented to the ER with complaints of increased shortness of air and low oxygen. Patient is a resident at [facility]. Patient states she was preparing candy for the little trigger treaters when she ate an entire bag of chocolate candy bars and became anxious and short of breath after she ate it. Patient was brought into the ER hypoxic and anxious. Patient was admitted placed on BiPAP. Hospital Course Hospital Course: chest x ray:FINDINGS: The cardiomediastinal silhouette and pulmonary vascularity are within normal limits. The lucent changes scattered throughout the lung [place] greater in the upper lobes especially on the left remain stable. Also stable are the areas of interstitial prominence. There are a few punctate stable calcified granulomas in the lung [place] bilaterally. There is no pleural effusion or pneumothorax. No acute bony abnormalities. IMPRESSION: No change or acute process. COPD. Interstitial fibrosis. Patient's O2 ranged between 85 and 88 she refused to be placed back on BiPAP and remained on O2 at 2 L. Patient is home O2 dependent at 2 L Today patient is alert and oriented asking to go back to [facility]. Patient's states she ate all of her breakfast. We will continue oral antibiotics and a [facility]. Objective Vital signs: Temp Pulse Resp BP Pulse Ox 98.4 F 114 H 22 143/85 H 86 L 12/19/18 08:39 12/19/18 08:39 12/19/18 08:39 12/19/18 08:39 12/19/18 08:39 no acute distress - *Routine HEENT Exam Head: Present: normocephalic Eye: Present: PERRL ENT: Present: mucous membranes moist - *Routine Respiratory Exam Present: wheezes - *Routine Cardiovascular Exam Present: RRR - *Routine Abdominal Exam Present: soft, normoactive bowel sounds - *Routine Extremities Exam Present: full ROM. Absent: cyanosis, clubbing, edema - *Routine Skin Exam Present: intact - *Routine Neurological Exam Present: alert, oriented X3 - Routine Psychiatric Exam Present: normal affect Results Labs on day of discharge: Labs from last 24 hours 12/18/18 12/18/18 12/18/18 21:03 16:56 11:37 Specimen Source O2 % ABG pH ABG pCO2 ABG pO2 ABG HCO3 ABG Total CO2 ABG O2 Saturation ABG Base Excess POC Glucose 251 H 229 H 334 H* 12/18/18 09:00 Specimen Source L brachial O2 % 3lpm ABG pH 7.43 ABG pCO2 57.9 H ABG pO2 47.6 L ABG HCO3 37.2 H ABG Total CO2 39.0 H ABG O2 Saturation 88 L ABG Base Excess 12.8 H POC Glucose - Additional Comments Rounded with Dr. Dennison all orders per Jesi Discharge Plan - Patient Discharge Instructions ACTIVITY: Continue current activity DIET: continue same diet Patient Instructions: DI for Chronic Obstructive Pulmonary Disease, DI for Respiratory Failure, Respiratory Failure - Follow up Plan Follow up with: Tracey Duran APRN [Advanced Practice Nurse] - 1 week (will see at [facility]) Disposition: Xfer SNF Home Medications: Home Medications Medication Instructions Recorded Confirmed Type Calcium Carbonate [Tums 500mg 1,000 mg PO QIDP PRN 07/01/18 12/17/18 History chewtab] Nicotine [Nicotine Patch 21 mg TD DAILY 07/01/18 12/17/18 History 21mg/24hrs] Quetiapine Fumarate [Seroquel 25mg 25 mg PO BID 07/01/18 12/17/18 History tablet] raNITIdine HCl [Ranitidine HCl] 150 mg PO HS 07/01/18 12/17/18 History Morphine Sulfate [Roxanol 20mg/mL 0.25 ml PO Q4HP PRN 07/02/18 12/17/18 History 1mL oral solution UDC] Budesonide/Formoterol Fumarate 2 puffs IH BID 12/17/18 12/18/18 History [Symbicort 160-4.5 Mcg Inhaler] Gabapentin [Gabapentin 100mg Cap] 100 mg PO TID 12/17/18 12/17/18 History Acetaminophen [Acetaminophen Extra 500 mg PO Q4HP PRN 12/18/18 12/18/18 History Strength] Ipratropium/Albuterol Sulfate 3 ml IH Q3HP PRN 12/18/18 12/18/18 History [Duoneb 3mL neb] Ondansetron HCl [Ondansetron 4mg 4 mg PO Q8HP PRN 12/18/18 12/18/18 History Tablet] Azithromycin [Zithromax 250mg 250 mg PO DIRECTED #6 tab 12/19/18 Rx tab] predniSONE [Prednisone 20mg 20 mg PO BID #10 tab 12/19/18 Rx Tab] Prescriptions/Medication Reconciliation: New Azithromycin [Zithromax 250mg tab] 250 mg PO DIRECTED #6 tab predniSONE [Prednisone 20mg Tab] 20 mg PO BID #10 tab Continued Quetiapine Fumarate [Seroquel 25mg tablet] 25 mg PO BID raNITIdine HCl [Ranitidine HCl] 150 mg PO HS Calcium Carbonate [Tums 500mg chewtab] 1,000 mg PO QIDP PRN PRN Reason: Heartburn Morphine Sulfate [Roxanol 20mg/mL 1mL oral solution UDC] 0.25 ml PO Q4HP PRN PRN Reason: Shortness Of Breath Gabapentin [Gabapentin 100mg Cap] 100 mg PO TID Ipratropium/Albuterol Sulfate [Duoneb 3mL neb] 3 ml IH Q3HP PRN PRN Reason: Shortness Of Breath Ondansetron HCl [Ondansetron 4mg Tablet] 4 mg PO Q8HP PRN PRN Reason: Nausea Nicotine [Nicotine Patch 21mg/24hrs] 21 mg TD DAILY Budesonide/Formoterol Fumarate [Symbicort 160-4.5 Mcg Inhaler] 2 puffs IH BID Acetaminophen [Acetaminophen Extra Strength] 500 mg PO Q4HP PRN PRN Reason: PAIN - Problem Reconciliation Problems Reviewed?: Yes
--- NOTE | 2018-12-20 19:18 | Electrocardiograph Report ---
APPROVED REPORT Exam: Resting ECG HR:97 bpm ECG Measurements Heart Rate 97 AXES ME 142 P 78 QRSd 92 QRS 60 QT 346 T65 QTc 439 <Conclusion> Normal sinus rhythm Normal ECG Electronically signed by : Saturnino Farmer, 12/20/2018 19:17:39
== END 2018-12-19 11:43 ==
LOC: ER 14:30 → 2ND 17:10 → INTOOBSV 18:13 → 2ND 18:13
PROVIDERS: ADMIT Emergency Medicine; ATTEND Emergency Medicine
DX: J96.01 Acute respiratory failure with hypoxia; J96.02 Acute respiratory failure with hypercapnia; I10 Essential (primary) hypertension; Z87.891 Personal history of nicotine dependence; E11.9 Type 2 diabetes mellitus without complications; J44.1 Chronic obstructive pulmonary disease with (acute) exacerbation
CPT/HCPCS: 71010; 71045; 80053; 82803; 82962; 83605; 84484; 85025; 87040; 93005; 94640; 94660; 94761; 96365; 96367; 96375; 99284; G0378; J0456

== ENCOUNTER 2019-04-13 00:14 | Observation (INO) ==
[2019-04-13 00:50] LABS: Basophils % 0.3 % (0.1-2.0); Eosinophils # 0.2 K/mm3 (0.0-0.4); Eosinophils % 2.4 % (0.1-12.0); Hemoglobin 11.5 g/dL (12.2-16.2); Lymphocytes # 2.2 K/mm3 (0.7-4.5); Lymphocytes % 26.9 % (10-50); Mean Corpuscular HGB Conc 30.3 g/dL (31.8-35.4); Mean Corpuscular Volume 91.4 fl (81-99); Mean Platelet Volume 7.5 fl (7.4-10.4); Monocytes # 0.6 K/mm3 (0.1-1.0); Monocytes % 7.4 % (1.7-9.3); Neutrophils # 5.1 K/mm3 (1.8-7.8); Platelet Count 208 K/mm3 (142-424); Red Blood Count 4.16 M/mm3 (4.20-5.40); Red Cell Distribution Width 13.2 % (11.5-17.5); White Blood Count 8.1 K/mm3 (4.8-10.8)
[2019-04-13 00:59] LABS: Anion Gap 10.1 mEq/L (5-15); Blood Urea Nitrogen 16 mg/dL (7-18); Calcium 9.6 mg/dL (8.5-10.1); Carbon Dioxide 37 mmol/L (21.0-32.0); Chloride 99 mmol/L (98-107); Glucose 177 mg/dL (74-106); Sodium 142 mmol/L (136-145)
--- NOTE | 2019-04-13 01:23 | Emergency Department Note ---
ED Disposition Clinical Impression: Mass of right lung, Acute respiratory failure with hypoxia and hypercarbia, Acute exacerbation of chronic obstructive airways disease COPD (chronic obstructive pulmonary disease) with emphysema Qualifiers: Emphysema type: panlobular Qualified Code(s): J43.1 - Panlobular emphysema Disposition: Admitted as Observation Condition on Discharge: Fair Time of Disposition: 02:41 - Critical Care Critical Care Time: No Attestation: On 04/13/19, the high probability of a clinically significant, sudden or life threatening deterioration of the following system(s) required my full and direct attention, intervention and personal management. The time I documented below is in addition to time spent performing reported procedures but includes the following listed in this critical care notation. Medical Decision Making - José Miguel Inquiry Pt receiving controlled substance: No Vital Signs: 04/13/19 00:14 04/13/19 00:29 04/13/19 00:50 Temperature 98.2 F 98.2 F Temperature Source Oral Oral Pulse Rate [Right] 95 H 95 H 94 H Respiratory Rate 22 22 22 Blood Pressure [Right Arm] 157/108 H 157/108 H 140/72 Blood Pressure Mean [Right Arm] 124 124 94 Blood Pressure Source [Right Arm] Automatic Cuff Automatic Cuff Automatic Cuff Blood Pressure Position [Right Arm] Supine Supine Supine 02 Sat by Pulse Oximetry 95 95 95 Oxygen Delivery Method Nasal Cannula Nasal Cannula Nasal Cannula Oxygen Flow Rate (LPM) 3 3 3 - Lab Data Lab results reviewed: Yes: I reviewed the patient's lab results. Lab Results 04/13/19 00:41: WBC 8.1, RBC 4.16 L, Hgb 11.5 L, Hct 38.0, MCV 91.4, MCH 27.7, MCHC 30.3 L, RDW 13.2, Plt Count 208, MPV 7.5, Neut % (Auto) 63.0, Lymph % (Auto) 26.9, [place] % (Auto) 7.4, Eos % (Auto) 2.4, Baso % (Auto) 0.3, Neut # (Au to) 5.1, Lymph # (Auto) 2.2, [place] # (Auto) 0.6, Eos # (Auto) 0.2, Baso # (Auto) 0.0 04/13/19 00:41: Sodium 142, Potassium 4.1, Chloride 99, Carbon Dioxide 37 H, Anion Gap 10.1, BUN 16, Creatinine 0.84, Estimated Creat Clear 65, Estimated GFR 67, Est GFR ( Amer) 82, Glucose 177 H, Calcium 9.6, Troponin I < 0.02 04/13/19 00:41: B-Natriuretic Peptide 18 04/13/19 01:49: VBG pH 7.33, VBG pCO2 61.3 H, VBG pO2 43.6 H, VBG HCO3 31.4 H, VBG Total CO2 33.3 H, VBG O2 Saturation 80.1 H, VBG Base Excess 5.4 H Result diagrams: 04/13/19 00:41 04/13/19 00:41 Orders (Tests/Meds): ED MEDICATIONS Discontinued Medications Generic Name Dose Route Start Last Admin Trade Name Freq PRN Reason Stop Dose Admin Albuterol Sulfate 2.5 mg 04/13/19 02:04 Albuterol 0.083% 2.5mg/3ml [facility] 04/13/19 02:05 ONCE ONE Albuterol/Ipratropium 3 ml 04/13/19 01:18 Duoneb 3ml [facility] 04/13/19 01:19 ONCE ONE Albuterol/Ipratropium 3 ml 04/13/19 02:04 Duoneb 3ml [facility] 04/13/19 02:05 ONCE ONE Ceftriaxone Sodium 1 gm/ 50 mls @ 100 mls/hr 04/13/19 01:30 04/13/19 01:26 Sodium Chloride IV 04/13/19 01:59 100 mls/hr ONCE ONE Administration Protocol Methylprednisolone Sodium Succinate 125 mg 04/13/19 01:18 04/13/19 01:26 Solu-Medrol 125mg/2ml Vial IV 04/13/19 01:19 125 mg ONCE ONE Administration ORDERS Category Date Time Status Chest XR 2 view (NOT portable) [XR chest 2V] Stat Exams 04/13/19 00:41 Taken Troponin I Q3H Lab 04/13/19 03:45 Ordered Troponin I Q3H Lab 04/13/19 06:45 Ordered Urinalysis and Microscopic Stat Lab 04/13/19 01:10 Ordered Arterial Blood Gas Routine RT 04/13/19 01:47 Received VBG [Venous Blood Gas] Stat RT 04/13/19 01:42 Ordered - Radiology Data #1 Image(s): Chest Image Reviewed: Yes I reviewed the patient's radiology image COPD changes with mild haziness on the right upper lobe suggestive of possible increasing lung mass. The mass seems to be increasing in size as compared to the old x-rays done about a month ago. - ECG Data Tracing #1 EKG done at 00 20 hours shows normal sinus rhythm with a heart rate of 93 bpm, normal axis, normal P waves, normal NE interval, nonspecific ST-T changes. Stable left atrial enlargement. - Physician Consults Physician Consulted: Dr. Farmer Time: 02:00 Reason -: Admission Comment/Response: Cussed with Dr. Farmer, the hospitalist, regarding the patient and plan to get the patient admitted to the floor. - Reevaluation(s) Time: 02:00 Reevaluation #1: Patient has been stable throughout the course of stay in the ER. She still has some degree of wheezing and bronchospasm. Discussed the lab findings and the x- ray findings with the patient. Plan to admit the patient to the floor. She is agreeable for the same. Venous blood gas shows pH of 7.32/PCO2 of 61/PO2 of 43/bicarb of 31/O2 sat of 80% Back Pain HPI - General Chief Complaint: Back Pain/Injury Stated Complaint: SOB Time Seen by Provider: 04/13/19 00:40 Mode of Arrival: EMS Source of Information: Patient Limitations: No Limitations Description of Symptoms (Recalled from ER Triage Doc. by RN): Pt states she has back pain radiating to right arm that causes SOA. - History of Present Illness HPI Narrative: 69-year-old female was brought in to the emergency department via EMS for having shortness of breath and complaining of pain in the back on the right side radiating from the axillary area to the back of the scapula on the right. She states she has been having on and off pain associated with shortness of breath. She states the pain exacerbates the shortness of breath. The shortness of breath has been getting worse. She finally decided to come to the emergency department. She has history of COPD and she is on home oxygen. She states she was recently diagnosed to have questionable mass on the right side. Denies having any fever or chills. Denies having any nausea or vomiting. Denies having any chest pain. Any abdominal pain or discomfort. No history of fall or injury. Complaint: back pain - Related Data Home Medications Medication Instructions Recorded Confirmed Calcium Carbonate [Tums 500mg 1,000 mg PO QIDP PRN 07/01/18 04/13/19 chewtab] Quetiapine Fumarate [Seroquel 25mg 25 mg PO BID 07/01/18 04/13/19 tablet] Morphine Sulfate [Roxanol 20mg/mL 0.25 ml PO Q4HP PRN 07/02/18 04/13/19 1mL oral solution UDC] Budesonide/Formoterol Fumarate 2 puffs IH BID 12/17/18 04/13/19 [Symbicort 160-4.5 Mcg Inhaler] Gabapentin [Gabapentin 100mg Cap] 100 mg PO TID 12/17/18 04/13/19 Acetaminophen [Acetaminophen Extra 500 mg PO Q4HP PRN 12/18/18 04/13/19 Strength] ondansetron HCL [Ondansetron 4mg 4 mg PO Q8HP PRN 12/18/18 04/13/19 Tablet] lidocaine 4 % topical patch 1 patch TOPICAL DAILY PRN 12/24/18 04/13/19 famotidine 20 mg tablet 20 mg PO DAILY 02/06/19 04/13/19 Alendronate Sodium [Fosamax 70mg 70 mg PO WEEKLY 04/13/19 04/13/19 Tablet] Ergocalciferol (Vitamin D2) 400 unit PO BID 04/13/19 04/13/19 [Vitamin D] Metformin HCl [Metformin HCl ER] 500 mg PO DAILY 04/13/19 04/13/19 Spironolactone [Spironolactone 25 mg PO BID 04/13/19 04/13/19 25mg Tablet] Allergies Allergy/AdvReac Type Severity Reaction Status Date / Time orange juice Allergy Mild Rash Verified 04/06/19 11:14 [facility] History - Hepatitis A Screen Drug use history?: No High risk sexual behaviors?: No History of sexually transmitted infection?: No Currently employed?: No Childcare worker?: No Do you have indoor plumbing?: Yes Do you have electricity?: Yes Attestation statement:: This patient has been screened for Hepatitis A risk factors. I have reviewed the patient's past medical history: Yes Medical History: Reports:: Anxiety, Chronic Obstructive Pulmonary Disease (COPD), Diabetes Mellitus Type 2, Hyperlipidemia, Hypertension Denies:: Cancer, Diabetes Mellitus Type 1, Internal Pacemaker, MRSA Other Medical History: Reports: Arthritis, Sinus Problems Other Surgeries: Yes: Colonoscopy, . No: Pacemaker Amputation: No Fractures: No - Social History Smoking Status: Former smoker Tobacco Type: cigarettes # Packs/Day (cigarettes): 1 #Yrs smoked (if former smoker): 40 Alcohol Intake: former Alcohol Intake Frequency:: 3 or more drinks per day Substance Use Type: denies use Occupational Status: retired Housing: shelter Household Members: none Comment: I took care of her who had COPD and possible cancer. He several years ago now and she has moved from the home they had to an apartment. She has had a homeless woman coming in and out cooking for her intermittently but has no other help from any relatives. She has a puppy at home. - Psychiatric History Pschychiatric History:: Reports:: Anxiety, Bipolar Disorder Family Hx:: Unable to obtain ROS Obtained: Yes All systems reviewed & no additional complaints Physical Exam - General General appearance: alert, other (Tachypnea) - Head Head exam: atraumatic, normocephalic, normal inspection - Eye Eye exam: Present: normal appearance, PERRL, EOMI - ENT ENT exam: Present: normal exam, normal oropharynx, mucous membranes moist, normal external ear exam - Neck Neck exam: Present: normal inspection, full ROM, trachea midline - Chest Chest inspection: Present: normal inspection, symmetric chest wall rise. Absent: tenderness - Respiratory Respiratory exam: Present: other (Bilateral coarse wheezing. Mild bronchospasm.) - Cardiovascular Cardiovascular exam: Present: regular rate, normal rhythm. Absent: JVD - Abdominal Exam Abdominal exam: Present: soft, normal bowel sounds. Absent: distention, tenderness, guarding - Extremities Exam Extremities exam: Present: normal inspection, full ROM, normal capillary refill. Absent: calf tenderness - Back Exam Back exam: Present: normal inspection, full ROM. Absent: tenderness, CVA tenderness (R), CVA tenderness (L) - Neurological Exam Neurological exam: Present: alert, oriented X3, CN II-XII intact - Psychiatric Psychiatric exam: Present: normal affect, normal mood - Skin Skin exam: Present: warm, dry, intact, normal color
[2019-04-13 01:52] LABS: VBG Base Excess 5.4 mmol/L (-2.4-2.3); VBG HCO3 31.4 mmol/L (23-30); VBG Oxygen Saturation 80.1 % (50-70); VBG PH 7.33 mmol/L (7.31-7.41); VBG PO2 43.6 mmol/L (28-40); VBG Total CO2 33.3 mmol/L (23-27)
[2019-04-13 01:53] LABS: VBG PCO2 61.3 mmol/L (35-51)
[2019-04-13 02:48] LABS: INR 0.93 (0.9-1.1); Prothrombin Time 9.7 seconds (9.4-11.8)
[2019-04-13 06:55] LABS: Basophils % 0.1 % (0.1-2.0); Eosinophils % 0.2 % (0.1-12.0); Hematocrit 34.9 % (37.0-47.0); Hemoglobin 10.6 g/dL (12.2-16.2); Lymphocytes # 0.4 K/mm3 (0.7-4.5); Lymphocytes % 4.4 % (10-50); Mean Corpuscular HGB Conc 30.5 g/dL (31.8-35.4); Mean Corpuscular Volume 93.2 fl (81-99); Mean Platelet Volume 7.7 fl (7.4-10.4); Monocytes # 0.2 K/mm3 (0.1-1.0); Monocytes % 1.9 % (1.7-9.3); Neutrophils % 93.4 % (37.0-80.0); Platelet Count 168 K/mm3 (142-424); Red Blood Count 3.74 M/mm3 (4.20-5.40); Red Cell Distribution Width 13.3 % (11.5-17.5); White Blood Count 8.6 K/mm3 (4.8-10.8)
[2019-04-13 07:03] LABS: Anion Gap 12.7 mEq/L (5-15); Blood Urea Nitrogen 13 mg/dL (7-18); Calcium 9.3 mg/dL (8.5-10.1); Carbon Dioxide 31 mmol/L (21.0-32.0); Chloride 102 mmol/L (98-107); Glucose 313 mg/dL (74-106); Sodium 142 mmol/L (136-145)
--- NOTE | 2019-04-13 07:18 | Pharmacy Consult Notes ---
[facility] Pharmacy VTE Monitoring - Patient Demographics Admission date: 04/13/19 Report Date: 04/13/19 Time: 07:18 Allergies/Adverse Reactions: Patient Allergies orange juice Allergy (Mild, Verified 04/06/19 11:14) Rash Height: 1.4 m Weight: 79.974 kg Patient Problems: Current Active Problems Mass of right lung (Acute) COPD (chronic obstructive pulmonary disease) with emphysema (Chronic) Acute respiratory failure with hypoxia and hypercarbia (Acute) Acute exacerbation of chronic obstructive airways disease (Acute) - VTE Risk Labs: VTE Related Lab Results Hgb 10.6 g/dL (12.2-16.2) L 04/13/19 06:37 Hct 34.9 % (37.0-47.0) L 04/13/19 06:37 Plt Count 168 K/mm3 (142-424) 04/13/19 06:37 PT 9.7 seconds (9.4-11.8) 04/13/19 00:41 INR 0.93 (0.9-1.1) 04/13/19 00:41 BUN 13 mg/dL (7-18) 04/13/19 06:37 Creatinine 1.08 mg/dL (0.55-1.02) H D 04/13/19 06:37 Estimated Creat Clear 63 mL/min (50-200) 04/13/19 06:37 VTE Score: 4 VTE Risk Level: Low Risk - Prophylaxis VTE Prophylaxis Ordered?: Yes Types of VTE Prophylaxis: TEDS Knee High Location of Applied Device: Bilateral Lower Extremeties
[2019-04-13 09:16] LABS: Lymphocytes % 5 % (10-50); Monocytes % 1 % (2-9); Neutrophils % 94 % (42-76); Total Cells Counted 100
[2019-04-13 09:17] LABS: Hypochromasia 1+
--- NOTE | 2019-04-13 09:31 | H&P/Discharge Summary ---
General - General Admission date:: 04/13/19 Discharge date: 04/13/19 *Admission Date: 04/13/19 *Chief complaint: soa *History of present illness: 69-year-old female presented to the emergency department via EMS for having shortness of breath and complaining of pain in the back on the right side radiating from the axillary area to the back of the scapula on the right. She states she has been having on and off pain associated with shortness of breath. She states the pain exacerbates the shortness of breath. The shortness of breath has been getting worse. pt c/o of rt hip/butt pain. She has history of COPD and she is on home oxygen. She states she was recently diagnosed to have questionable mass on the right side. Denies having any fever or chills. Denies having any nausea or vomiting. Denies having any chest pain. Any abdominal pain or discomfort. No history of fall or injury. [facility] History I have reviewed the patient's past medical history: Yes Medical History: Reports:: Anxiety, Congestive Heart Failure, Chronic Obstructive Pulmonary Disease (COPD), Diabetes Mellitus Type 2, Hyperlipidemia, Hypertension Denies:: Cancer, Diabetes Mellitus Type 1, Internal Pacemaker, MRSA *Have you ever received a pneumonia vaccine?: Yes *Have you received a flu vaccine this season?: Yes Other Medical History: Reports: Arthritis, Sinus Problems Other Surgeries: Yes: Colonoscopy, . No: Pacemaker Amputation: No Fractures: No - *Social History Educational Level: Attended High School Smoking Status: Former smoker Tobacco Type: cigarettes # Packs/Day (cigarettes): 3 #Yrs smoked (if former smoker): 1 Alcohol Intake: never Alcohol Intake Frequency:: 3 or more drinks per day Substance Use Type: denies use *Occupational Status:: retired Housing: care home Household Members: none *Travel in the last 8 weeks: None - Psychiatric History Pschychiatric History:: Reports:: Anxiety, Bipolar Disorder Family Hx:: Unable to obtain Review of Systems - Review of Systems Review of systems:: pertinent systems reviewed and negative unless documented below - Constitutional Denies fever(s) - Eyes Denies blurry vision - ENT Denies bleeding gums - *Cardiovascular Reports chest pain at rest, Reports chest pain with activity, Reports shortness of breath - *Respiratory Reports shortness of breath, Reports shortness of breath with activity, Denies chest congestion - *Gastrointestinal Denies bloating, Denies nausea, Denies vomiting - *Musculoskeletal Reports joint pain, Reports back pain, Reports muscle cramps - Integumentary/Breasts Denies rash - *Neurologic Denies dizziness - Psychiatric Denies lack of enjoyment, Denies anxiety - Endocrine Denies excessive sweating - Hematologic/Lymphatic Denies enlarged lymph nodes - Allergic/Immunologic Denies itchy eyes Exam Vital signs and Labs for Last 24 Hours: Temp Pulse Resp BP Pulse Ox 98.4 F 110 H 20 105/69 L 91 L 04/13/19 08:00 04/13/19 08:00 04/13/19 08:00 04/13/19 08:00 04/13/19 08:00 Laboratory Results - last 24 hr 04/13/19 00:41: WBC 8.1, RBC 4.16 L, Hgb 11.5 L, Hct 38.0, MCV 91.4, MCH 27.7, MCHC 30.3 L, RDW 13.2, Plt Count 208, MPV 7.5, Neut % (Auto) 63.0, Lymph % (Auto) 26.9, [place] % (Auto) 7.4, Eos % (Auto) 2.4, Baso % (Auto) 0.3, Neut # (Auto) 5.1, Lymph # (Auto) 2.2, [place] # (Auto) 0.6, Eos # (Auto) 0.2, Baso # (Auto) 0.0 04/13/19 00:41: Sodium 142, Potassium 4.1, Chloride 99, Carbon Dioxide 37 H, Anion Gap 10.1, BUN 16, Creatinine 0.84, Estimated Creat Clear 65, Estimated GFR 67, Est GFR ( Amer) 82, Glucose 177 H, Calcium 9.6, Troponin I < 0.02 04/13/19 00:41: B-Natriuretic Peptide 18 04/13/19 00:41: PT 9.7, INR 0.93 04/13/19 01:49: VBG pH 7.33, VBG pCO2 61.3 H, VBG pO2 43.6 H, VBG HCO3 31.4 H, VBG Total CO2 33.3 H, VBG O2 Saturation 80.1 H, VBG Base Excess 5.4 H 04/13/19 02:42: Lactate 1.7 01/27/20 03:30: Troponin I < 0.02 04/13/19 06:00: POC Glucose 309 H* 04/13/19 06:37: Sodium 142, Potassium 3.7, Chloride 102, Carbon Dioxide 31, Anion Gap 12.7, BUN 13, Creatinine 1.08 H D, Estimated Creat Clear 63, Estimated GFR 50 L, Est GFR ( Amer) 61 D, Glucose 313 H D, Calcium 9.3, Troponin I < 0.02 04/13/19 06:37: WBC 8.6, RBC 3.74 L, Hgb 10.6 L, Hct 34.9 L, MCV 93.2, MCH 28.4, MCHC 30.5 L, RDW 13.3, Plt Count 168, MPV 7.7, Neut % (Auto) 93.4 H, Lymph % (Auto) 4.4 L, [place] % (Auto) 1.9, Eos % (Auto) 0.2, Baso % (Auto) 0.1, Neut # (Auto) 8.0 H, Lymph # (Auto) 0.4 L, [place] # (Auto) 0.2, Eos # (Auto) 0.0, Baso # (Auto) 0.0, Total Counted 100, Neutrophils % (Manual) 94 H, Lymphocytes % (Manual) 5 L, Monocytes % (Manual) 1 L, Platelet Estimate Slight decrease, Hypochromasia 1+ I & O for Last 24 hours: Intake & Output 04/10/19 04/11/19 04/12/19 04/13/19 11:59 11:59 11:59 11:59 Intake Total 500 / 500 Output Total 500 / 500 Balance 0 / 0 Weight 176 lb 5 oz - Constitutional no acute distress, chronically ill appearing - *Routine HEENT Exam Head: Present: normocephalic Eye: Present: PERRL ENT: Present: mucous membranes moist - *Routine Neck Exam Present: supple. Absent: lymphadenopathy - *Routine Respiratory Exam Present: wheezes - *Routine Cardiovascular Exam Present: RRR - *Routine Abdominal Exam Present: soft, normoactive bowel sounds. Absent: tenderness - *Routine Extremities Exam Present: full ROM, normal capillary refill. Absent: cyanosis, clubbing, edema - Routine Back/Spine/Pelvis Exam Back/Spine: Present: full ROM, paraspinal tenderness Pelvis: Present: buttock tenderness, right sciatic notch tenderness. Absent: buttock ecchymosis, buttock swelling - *Routine Skin Exam Present: warm. Absent: rash - *Routine Neurological Exam Present: alert, oriented X3 - Routine Psychiatric Exam Present: normal affect Hospital Course Hospital Course: 04/13/19 01:49 VBG pH 7.33 VBG pCO2 61.3 H VBG pO2 43.6 H VBG HCO3 31.4 H VBG Total CO2 33.3 H VBG O2 Saturation 80.1 H VBG Base Excess 5.4 H Laboratory Results - last 24 hr 04/13/19 00:41: WBC 8.1, RBC 4.16 L, Hgb 11.5 L, Hct 38.0, MCV 91.4, MCH 27.7, MCHC 30.3 L, RDW 13.2, Plt Count 208, MPV 7.5, Neut % (Auto) 63.0, Lymph % (Auto) 26.9, [place] % (Auto) 7.4, Eos % (Auto) 2.4, Baso % (Auto) 0.3, Neut # (Auto) 5.1, Lymph # (Auto) 2.2, [place] # (Auto) 0.6, Eos # (Auto) 0.2, Baso # (Auto) 0.0 04/13/19 00:41: Sodium 142, Potassium 4.1, Chloride 99, Carbon Dioxide 37 H, Anion Gap 10.1, BUN 16, Creatinine 0.84, Estimated Creat Clear 65, Estimated GFR 67, Est GFR ( Amer) 82, Glucose 177 H, Calcium 9.6, Troponin I < 0.02 04/13/19 00:41: B-Natriuretic Peptide 18 04/13/19 00:41: PT 9.7, INR 0.93 04/13/19 01:49: VBG pH 7.33, VBG pCO2 61.3 H, VBG pO2 43.6 H, VBG HCO3 31.4 H, VBG Total CO2 33.3 H, VBG O2 Saturation 80.1 H, VBG Base Excess 5.4 H 04/13/19 02:42: Lactate 1.7 04/13/19 03:30: Troponin I < 0.02 04/13/19 06:00: POC Glucose 309 H* 04/13/19 06:37: Sodium 142, Potassium 3.7, Chloride 102, Carbon Dioxide 31, Anion Gap 12.7, BUN 13, Creatinine 1.08 H D, Estimated Creat Clear 63, Estimated GFR 50 L, Est GFR ( Amer) 61 D, Glucose 313 H D, Calcium 9.3, Troponin I < 0.02 04/13/19 06:37: WBC 8.6, RBC 3.74 L, Hgb 10.6 L, Hct 34.9 L, MCV 93.2, MCH 28.4, MCHC 30.5 L, RDW 13.3, Plt Count 168, MPV 7.7, Neut % (Auto) 93.4 H, Lymph % (Auto) 4.4 L, [place] % (Auto) 1.9, Eos % (Auto) 0.2, Baso % (Auto) 0.1, Neut # (Auto) 8.0 H, Lymph # (Auto) 0.4 L, [place] # (Auto) 0.2, Eos # (Auto) 0.0, Baso # (Auto) 0.0, Total Counted 100, Neutrophils % (Manual) 94 H, Lymphocytes % (Manual) 5 L, Monocytes % (Manual) 1 L, Platelet Estimate Slight decrease, Hypochromasia 1+ Laboratory Results WBC 8.6 K/mm3 (4.8-10.8) 04/13/19 06:37 RBC 3.74 M/mm3 (4.20-5.40) L 04/13/19 06:37 Hgb 10.6 g/dL (12.2-16.2) L 04/13/19 06:37 Hct 34.9 % (37.0-47.0) L 04/13/19 06:37 MCV 93.2 fl (81-99) 04/13/19 06:37 MCH 28.4 pg (27.0-31.2) 04/13/19 06:37 MCHC 30.5 g/dL (31.8-35.4) L 04/13/19 06:37 RDW 13.3 % (11.5-17.5) 04/13/19 06:37 Plt Count 168 K/mm3 (142-424) 04/13/19 06:37 MPV 7.7 fl (7.4-10.4) 04/13/19 06:37 Neut % (Auto) 93.4 % (37.0-80.0) H 04/13/19 06:37 Lymph % (Auto) 4.4 % (10-50) L 04/13/19 06:37 [place] % (Auto) 1.9 % (1.7-9.3) 04/13/19 06:37 Eos % (Auto) 0.2 % (0.1-12.0) 04/13/19 06:37 Baso % (Auto) 0.1 % (0.1-2.0) 04/13/19 06:37 Neut # (Auto) 8.0 K/mm3 (1.8-7.8) H 04/13/19 06:37 Lymph # (Auto) 0.4 K/mm3 (0.7-4.5) L 04/13/19 06:37 [place] # (Auto) 0.2 K/mm3 (0.1-1.0) 04/13/19 06:37 Eos # (Auto) 0.0 K/mm3 (0.0-0.4) 04/13/19 06:37 Baso # (Auto) 0.0 K/mm3 (0-0.2) 04/13/19 06:37 Total Counted 100 04/13/19 06:37 Neutrophils % (Manual) 94 % (42-76) H 04/13/19 06:37 Lymphocytes % (Manual) 5 % (10-50) L 04/13/19 06:37 Monocytes % (Manual) 1 % (2-9) L 04/13/19 06:37 Platelet Estimate Slight decrease 04/13/19 06:37 Hypochromasia 1+ 04/13/19 06:37 PT 9.7 seconds (9.4-11.8) 04/13/19 00:41 INR 0.93 (0.9-1.1) 04/13/19 00:41 VBG pH 7.33 mmol/L (7.31-7.41) 04/13/19 01:49 VBG pCO2 61.3 mmol/L (35-51) H 04/13/19 01:49 VBG pO2 43.6 mmol/L (28-40) H 04/13/19 01:49 VBG HCO3 31.4 mmol/L (23-30) H 04/13/19 01:49 VBG Total CO2 33.3 mmol/L (23-27) H 04/13/19 01:49 VBG O2 Saturation 80.1 % (50-70) H 04/13/19 01:49 VBG Base Excess 5.4 mmol/L (-2.4-2.3) H 04/13/19 01:49 Sodium 142 mmol/L (136-145) 04/13/19 06:37 Potassium 3.7 mmoL/L (3.5-5.1) 04/13/19 06:37 Chloride 102 mmol/L (98-107) 04/13/19 06:37 Carbon Dioxide 31 mmol/L (21.0-32.0) 04/13/19 06:37 Anion Gap 12.7 mEq/L (5-15) 04/13/19 06:37 BUN 13 mg/dL (7-18) 04/13/19 06:37 Creatinine 1.08 mg/dL (0.55-1.02) H D 04/13/19 06:37 Estimated Creat Clear 63 mL/min (50-200) 04/13/19 06:37 Estimated GFR 50 ml/min (>60) L 04/13/19 06:37 Est GFR ( Amer) 61 ML/MIN (>60) D 04/13/19 06:37 Glucose 313 mg/dL (74-106) H D 04/13/19 06:37 POC Glucose 309 (70-110) H* 04/13/19 06:00 Lactate 1.7 mmol/L (0.4-2.0) 04/13/19 02:42 Calcium 9.3 mg/dL (8.5-10.1) 04/13/19 06:37 Troponin I < 0.02 ng/ml (0.00-0.06) 04/13/19 06:37 B-Natriuretic Peptide 18 pg/mL (0-100) 04/13/19 00:41 Vital Signs Temp Pulse Pulse Resp BP BP Pulse Ox 04/13/19 08:00 98.4 F 110 H 20 105/69 L 91 L 04/13/19 05:10 98.2 F 109 H 17 129/65 91 L 04/13/19 04:00 120 H 04/13/19 03:19 110 H 04/13/19 02:49 98.2 F 99 H 20 152/78 H 04/13/19 02:35 85 04/13/19 02:30 83 04/13/19 02:20 98.2 F 108 H 17 123/52 L 94 L 04/13/19 02:15 83 04/13/19 02:00 78 04/13/19 01:50 78 04/13/19 01:40 81 04/13/19 00:50 94 H 22 140/72 95 04/13/19 00:29 98.2 F 95 H 22 157/108 H 95 04/13/19 00:14 98.2 F 95 H 22 157/108 H 95 chest x ray:IMPRESSION: COPD with enlarging right upper lobe nodule suspicious for neoplasm.. Suggest CT scan for further evaluation Mild wedging of T6 unchanged Will discharge back to [place] today with antibiotics and steroids. Will cover until blood culture turns sputum results. Patient will need physical therapy at the care home to help with right hip and back pain. Continue with repeating the CT of the chest Results Labs on day of discharge: Labs from last 24 hours 04/13/19 04/13/19 04/13/19 06:37 06:37 06:00 WBC 8.6 RBC 3.74 L Hgb 10.6 L Hct 34.9 L MCV 93.2 MCH 28.4 MCHC 30.5 L RDW 13.3 Plt Count 168 MPV 7.7 Neut % (Auto) 93.4 H Lymph % (Auto) 4.4 L [place] % (Auto) 1.9 Eos % (Auto) 0.2 Baso % (Auto) 0.1 Neut # (Auto) 8.0 H Lymph # (Auto) 0.4 L [place] # (Auto) 0.2 Eos # (Auto) 0.0 Baso # (Auto) 0.0 Total Counted 100 Neutrophils % (Manual) 94 H Lymphocytes % (Manual) 5 L Monocytes % (Manual) 1 L Platelet Estimate Slight decrease Hypochromasia 1+ PT INR VBG pH VBG pCO2 VBG pO2 VBG HCO3 VBG Total CO2 VBG O2 Saturation VBG Base Excess Sodium 142 Potassium 3.7 Chloride 102 Carbon Dioxide 31 Anion Gap 12.7 BUN 13 Creatinine 1.08 H D Estimated Creat Clear 63 Estimated GFR 50 L Est GFR ( Amer) 61 D Glucose 313 H D POC Glucose 309 H* Lactate Calcium 9.3 Troponin I < 0.02 B-Natriuretic Peptide 04/13/19 04/13/19 04/13/19 03:30 02:42 01:49 WBC RBC Hgb Hct MCV MCH MCHC RDW Plt Count MPV Neut % (Auto) Lymph % (Auto) [place] % (Auto) Eos % (Auto) Baso % (Auto) Neut # (Auto) Lymph # (Auto) [place] # (Auto) Eos # (Auto) Baso # (Auto) Total Counted Neutrophils % (Manual) Lymphocytes % (Manual) Monocytes % (Manual) Platelet Estimate Hypochromasia PT INR VBG pH 7.33 VBG pCO2 61.3 H VBG pO2 43.6 H VBG HCO3 31.4 H VBG Total CO2 33.3 H VBG O2 Saturation 80.1 H VBG Base Excess 5.4 H Sodium Potassium Chloride Carbon Dioxide Anion Gap BUN Creatinine Estimated Creat Clear Estimated GFR Est GFR ([facility]) Glucose POC Glucose Lactate 1.7 Calcium Troponin I < 0.02 B-Natriuretic Peptide 04/13/19 04/13/19 04/13/19 00:41 00:41 00:41 WBC RBC Hgb Hct MCV MCH MCHC RDW Plt Count MPV Neut % (Auto) Lymph % (Auto) [place] % (Auto) Eos % (Auto) Baso % (Auto) Neut # (Auto) Lymph # (Auto) [place] # (Auto) Eos # (Auto) Baso # (Auto) Total Counted Neutrophils % (Manual) Lymphocytes % (Manual) Monocytes % (Manual) Platelet Estimate Hypochromasia PT 9.7 INR 0.93 VBG pH VBG pCO2 VBG pO2 VBG HCO3 VBG Total CO2 VBG O2 Saturation VBG Base Excess Sodium 142 Potassium 4.1 Chloride 99 Carbon Dioxide 37 H Anion Gap 10.1 BUN 16 Creatinine 0.84 Estimated Creat Clear 65 Estimated GFR 67 Est GFR ([facility]) 82 Glucose 177 H POC Glucose Lactate Calcium 9.6 Troponin I < 0.02 B-Natriuretic Peptide 18 04/13/19 00:41 WBC 8.1 RBC 4.16 L Hgb 11.5 L Hct 38.0 MCV 91.4 MCH 27.7 MCHC 30.3 L RDW 13.2 Plt Count 208 MPV 7.5 Neut % (Auto) 63.0 Lymph % (Auto) 26.9 [place] % (Auto) 7.4 Eos % (Auto) 2.4 Baso % (Auto) 0.3 Neut # (Auto) 5.1 Lymph # (Auto) 2.2 [place] # (Auto) 0.6 Eos # (Auto) 0.2 Baso # (Auto) 0.0 Total Counted Neutrophils % (Manual) Lymphocytes % (Manual) Monocytes % (Manual) Platelet Estimate Hypochromasia PT INR VBG pH VBG pCO2 VBG pO2 VBG HCO3 VBG Total CO2 VBG O2 Saturation VBG Base Excess Sodium Potassium Chloride Carbon Dioxide Anion Gap BUN Creatinine Estimated Creat Clear Estimated GFR Est GFR ( Amer) Glucose POC Glucose Lactate Calcium Troponin I B-Natriuretic Peptide - Additional Comments Rounded with Dr. Dennison all orders per Jesi DS: Diagnosis - Discharge Diagnosis (1) Hip pain, right Status: Acute (2) Acute exacerbation of chronic obstructive airways disease Status: Acute (3) Mass of right lung Status: Acute (4) Acute and chronic respiratory failure ([id number]) Status: Acute (5) COPD exacerbation Status: Acute (6) Cardiomegaly Status: Acute (7) Obesity (BMI 30.0-34.9) Status: Chronic (8) Right-sided heart failure Status: Chronic Discharge Plan - Patient Discharge Instructions ACTIVITY: Continue current activity DIET: continue same diet Patient Instructions: Chronic Obstructive Pulmonary Disease, Heart Failure, DI for Heart Failure, DI for Chronic Obstructive Pulmonary Disease, DI for Shortness of Breath, DI for Respiratory Failure, Respiratory Failure - Follow up Plan Follow up with: Tracey Duran APRN [Advanced Practice Nurse] - Disposition: Xfer [facility] Home Medications: Home Medications Medication Instructions Recorded Confirmed Type Calcium Carbonate [Tums 500mg 1,000 mg PO QIDP PRN 07/01/18 04/13/19 History chewtab] Quetiapine Fumarate [Seroquel 25mg 25 mg PO BID 07/01/18 04/13/19 History tablet] Morphine Sulfate [Roxanol 20mg/mL 0.25 ml PO Q4HP PRN 07/02/18 04/13/19 History 1mL oral solution UDC] Budesonide/Formoterol Fumarate 2 puffs IH BID 12/17/18 04/13/19 History [Symbicort 160-4.5 Mcg Inhaler] Gabapentin [Gabapentin 100mg Cap] 100 mg PO TID 12/17/18 04/13/19 History Acetaminophen [Acetaminophen Extra 500 mg PO Q4HP PRN 12/18/18 04/13/19 History Strength] ondansetron HCL [Ondansetron 4mg 4 mg PO Q8HP PRN 12/18/18 04/13/19 History Tablet] lidocaine 4 % topical patch 1 patch TOPICAL DAILY PRN 12/24/18 04/13/19 History famotidine 20 mg tablet 20 mg PO DAILY 02/06/19 04/13/19 History Alendronate Sodium [Fosamax 70mg 70 mg PO WEEKLY 04/13/19 04/13/19 History Tablet] Azithromycin [Zithromax 250mg 250 mg PO DIRECTED #6 tab 04/13/19 Rx tab] Ergocalciferol (Vitamin D2) 400 unit PO BID 04/13/19 04/13/19 History [Vitamin D] Metformin HCl [Metformin HCl ER] 500 mg PO DAILY 04/13/19 04/13/19 History Spironolactone [Spironolactone 25 mg PO BID 04/13/19 04/13/19 History 25mg Tablet] predniSONE [Prednisone 20mg 20 mg PO BID #10 tab 04/13/19 Rx Tab] Prescriptions/Medication Reconciliation: New predniSONE [Prednisone 20mg Tab] 20 mg PO BID #10 tab Azithromycin [Zithromax 250mg tab] 250 mg PO DIRECTED #6 tab Continued Quetiapine Fumarate [Seroquel 25mg tablet] 25 mg PO BID Calcium Carbonate [Tums 500mg chewtab] 1,000 mg PO QIDP PRN PRN Reason: Heartburn Morphine Sulfate [Roxanol 20mg/mL 1mL oral solution UDC] 0.25 ml PO Q4HP PRN PRN Reason: Shortness Of Breath ondansetron HCL [Ondansetron 4mg Tablet] 4 mg PO Q8HP PRN PRN Reason: Nausea Ergocalciferol (Vitamin D2) [Vitamin D] 400 unit PO BID Budesonide/Formoterol Fumarate [Symbicort 160-4.5 Mcg Inhaler] 2 puffs IH BID Acetaminophen [Acetaminophen Extra Strength] 500 mg PO Q4HP PRN PRN Reason: PAIN Spironolactone [Spironolactone 25mg Tablet] 25 mg PO BID No Action lidocaine 4 % topical patch 1 patch TOPICAL DAILY PRN PRN Reason: back pain famotidine 20 mg tablet 20 mg PO DAILY Gabapentin [Gabapentin 100mg Cap] 100 mg PO TID Alendronate Sodium [Fosamax 70mg Tablet] 70 mg PO WEEKLY Metformin HCl [Metformin HCl ER] 500 mg PO DAILY - Problem Reconciliation Problems Reviewed?: Yes
--- NOTE | 2019-04-14 05:01 | Electrocardiograph Report ---
APPROVED REPORT Exam: Resting ECG HR:93 bpm ECG Measurements Heart Rate 93 AXES WI 150 P 71 QRSd 84 QRS 30 QT 366 T43 QTc 455 <Conclusion> Normal sinus rhythm Normal ECG Electronically signed by : Saturnino Farmer, 04/14/2019 05:01:04
== END 2019-04-13 13:36 ==
LOC: 2ND 00:14 → ER 00:14 → 2ND 02:54
PROVIDERS: ADMIT Internal Medicine Adolescent Medicine; ATTEND Emergency Medicine
CPT/HCPCS: 36415; 71020; 71046; 73502; 80048; 82803; 82962; 83605; 83880; 84484; 85007; 85025; 85610; 87040; 87077; 87186; 93005; 94640; 94760; 96365; 96375; 99284; G0378

== ENCOUNTER 2019-04-20 09:14 | Inpatient (IN) ==
[2019-04-20 09:29] LABS: ABG Base Excess 7.8 mmol/L (-2.4-2.3); ABG HCO3 34.3 mmhg (22.0-26.0); ABG Oxygen Saturation 89 % (90-100); ABG TCO2 36.5 mmhg (23-27)
--- NOTE | 2019-04-20 09:30 | Emergency Department Note ---
ED Disposition Clinical Impression: Acute exacerbation of chronic obstructive pulmonary disease (COPD), Severe sepsis, Dehydration Respiratory failure Qualifiers: Chronicity: acute Respiratory failure complication: hypoxia and hypercapnia Qualified Code(s): J96.01 - Acute respiratory failure with hypoxia; J96.02 - Acute respiratory failure with hypercapnia Dyspnea Qualifiers: Dyspnea type: acute respiratory distress Qualified Code(s): R06.03 - Acute respiratory distress Pneumonia Qualifiers: Pneumonia type: due to unspecified organism Laterality: bilateral Lung location : lower lobe of lung Qualified Code(s): J18.9 - Pneumonia, unspecified organism Disposition: Admitted as Observation Condition on Discharge: Serious Additional Instructions: Patient was admitted to the floor under Dr. Dennison's service. Time of Disposition: 10:38 - Critical Care Critical Care Time: Yes Attestation: On , the high probability of a clinically significant, sudden or life threatenin g deterioration of the following system(s) required my full and direct attention, intervention and personal management. The time I documented below is in addition to time spent performing reported procedures but includes the following listed in this critical care notation. Total Critical Care Time: 45 Vital system(s) involved:: Circulatory Failure, Respiratory Failure My critical care processes included: Assessment & monitoring of V/S, Initial and Re-exams, Data Review/Interpretation, Coordinating Care, Medication Orders and management, Documentation Medical Decision Making - José Miguel Inquiry Pt receiving controlled substance: Yes José Miguel was queried for this patient: No (SHE is in the long term) Risks and benefits of using a controlled substance: were not discussed with pt by me (SHE is in the long term) Vital Signs: 04/20/19 09:16 04/20/19 09:42 04/20/19 10:01 Temperature 98.2 F Temperature Source Oral Pulse Rate [Left Radial] 63 90 101 H Respiratory Rate 28 H Blood Pressure [Right Arm] 132/59 L 142/67 H 151/89 H Blood Pressure Mean [Right Arm] 83 92 109 Blood Pressure Position [Right Arm] Sitting Sitting 02 Sat by Pulse Oximetry 77 L 88 L 100 Oxygen Delivery Method Nasal Cannula Nasal Cannula Oxygen Flow Rate (LPM) 2 4 - Lab Data Lab Results 04/20/19 09:25: WBC 7.8, RBC 4.57, Hgb 12.9, Hct 44.0, MCV 96.2, MCH 28.2, MCHC 29.3 L, RDW 13.5, Plt Count 213, MPV 7.4, Neut % (Auto) 80.9 H, Lymph % (Auto) 10.6, [place] % (Auto) 7.5, Eos % (Auto) 0.4, Baso % (Auto) 0.7, Neut # (Auto) 6.3, Lymph # (Auto) 0.8, [place] # (Auto) 0.6, Eos # (Auto) 0.0, Baso # (Auto) 0.1 04/20/19 09:25: Sodium 137, Potassium 4.6, Chloride 94 L, Carbon Dioxide 44 H*, Anion Gap 3.6 L, BUN 16, Creatinine 0.80, Estimated Creat Clear 66, Estimated GFR 71, Est GFR ( Amer) 86, Glucose 207 H, Calcium 9.9, Total Bilirubin 0.7, AST 16, ALT 56, Alkaline Phosphatase 97, Troponin I < 0.02, Total Protein 7.7, Albumin 3.8, Globulin 3.9 H, Albumin/Globulin Ratio 1.0 L 04/20/19 09:25: Lactate 0.9 Result diagrams: 04/20/19 09:25 04/20/19 09:25 Orders (Tests/Meds): ED MEDICATIONS Generic Name Dose Route Start Last Admin Trade Name Freq PRN Reason Stop Dose Admin Levofloxacin/Dextrose 750 mg in 150 mls @ 100 mls/hr 04/20/19 10:00 Levofloxacin 750mg/150ml Premix IV 05/04/19 09:59 Q24H TRACEY Protocol Sodium Chloride 1,000 mls @ 250 mls/hr 04/20/19 10:00 Sod Chlor 0.9% 1000ml Bag IV 05/20/19 09:59 .Q4H TRACEY Discontinued Medications Generic Name Dose Route Start Last Admin Trade Name Freq PRN Reason Stop Dose Admin Albuterol Sulfate 10 mg 04/20/19 09:30 Albuterol 0.083% 2.5mg/3ml [facility] 04/20/19 09:31 ONCE ONE Albuterol Sulfate 2.5 mg 04/20/19 09:31 Albuterol 0.083% 2.5mg/3ml [facility] 04/20/19 09:32 ONCE ONE Albuterol/Ipratropium 3 ml 04/20/19 09:24 04/20/19 09:29 Duoneb 3ml [facility] 04/20/19 09:25 3 ml ONCE ONE Administration Albuterol/Ipratropium 3 ml 04/20/19 09:31 Duoneb 3ml Neb 04/20/19 09:32 ONCE ONE Methylprednisolone Sodium Succinate 125 mg 04/20/19 09:23 04/20/19 09:29 Solu-Medrol 125mg/2ml Vial IV 04/20/19 09:24 125 mg ONCE ONE Administration Methylprednisolone Sodium Succinate 40 mg 04/20/19 09:52 Methylprednisolone Sod Succinate 40mg Vial IV 04/20/19 09:53 ONCE ONE Ondansetron HCl 4 mg 04/20/19 09:26 04/20/19 09:29 Zofran 4mg/2ml Vial IV 04/20/19 09:27 4 mg ONCE ONE Administration ORDERS Category Date Time Status XR chest portable Stat Exams 04/20/19 09:23 Ordered Troponin I Q3H Lab 04/20/19 12:30 Ordered Troponin I Q3H Lab 04/20/19 15:30 Ordered Blood Culture Stat Micro 04/20/19 09:25 Received ABG [Arterial Blood Gas] Stat RT 04/20/19 09:22 Ordered - Radiology Data #1 Image(s): Chest Image Reviewed: Yes I reviewed the patient's radiology image Preliminary Findings: Abnormal (Bilateral lower lobe haziness suggestive of possible bibasilar pneumonia) - ECG Data Tracing #1 EKG shows normal sinus rhythm with a heart rate of 100 bpm, left atrial enlargement, normal ID interval, normal axis, nonspecific ST-T changes. Low voltage EKG - Physician Consults Physician Consulted: Dr. Dennison Reason -: Admission Comment/Response: D/W DENISA Webb for Dr. Dennison, regarding the pt and planned to admit the pt to the floor. - Reevaluation(s) Time: 09:55 Reevaluation #1: Patient was acutely short of breath and wheezing. Patient was acidotic and had respiratory acidosis with PCO2 of 72 and pH of 7.29. I decided to put the patient on a BiPAP but the patient refused to be on BiPAP. She stated that she would have a stroke if she was placed on the BiPAP. We decided to give breathing treatments and check the patient's status. We may have to give the patient magnesium sulfate for the same. Time: 10:22 Reevaluation #3: Cussed with the pharmacist regarding the antibiotic. We will plan to start the patient on Levaquin and Zosyn at full dose. Reevaluation #2: She seems to be more drowsy. We put her on the BiPAP while giving the breathing treatment and she tolerated it in slow pressure and then the pressure was increased gradually. The BiPAP was then continued. Again his nurse practitioner, came to evaluate the patient and she was agreeable to have the patient be put on BiPAP. She wanted the patient to be admitted under Dr. Dennison's service on BiPAP. Additional Reevaluation(s): At 1030 hrs. the patient was still having bilateral bronchospasm. She was given plenty of breathing treatments. She was given double dose of Solu-Medrol. Plan to give her mag sulfate 2 g IV for the bronchospasm. Continue to put on the BiPAP at this time. Resp/SOB HPI - General Chief Complaint: Shortness of Breath/Dyspnea Stated Complaint: SOA Time Seen by Provider: 04/20/19 09:26 Mode of Arrival: EMS Source of Information: EMS Limitations: No Limitations Description of Symptoms (Recalled from ER Triage Doc. by RN): to ed per michelle pt resident [facility] sent for eval due to "altered mental status" report that pt difficult to arouse from sleep this am. michelle reports pt's o2 sats were 80% on 2L o2 at [place]. pt alert and oriented x 4 pt wears o2 2L 24/7. 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 Patient has a history of COPD and is on oxygen 24/7. According to the long term staff the patient was altered and drowsy this morning. Her oxygen saturation was low. As per the EMS she was satting at about lower 80s the long term. Patient is not verbalizing much complain as she seems to be in distress with shortness of breath. Denies any pain except for having some headache right now. No history of nausea or vomiting MD Complaint: shortness of breath Severity: severe Treatment prior to arrival: oxygen - Related Data Home Medications Medication Instructions Recorded Confirmed Calcium Carbonate [Tums 500mg 1,000 mg PO QIDP PRN 07/01/18 04/20/19 chewtab] Quetiapine Fumarate [Seroquel 25mg 25 mg PO BID 07/01/18 04/20/19 tablet] Morphine Sulfate [Roxanol 20mg/mL 0.25 ml PO Q4HP PRN 07/02/18 04/20/19 1mL oral solution UDC] Budesonide/Formoterol Fumarate 2 puffs IH BID 12/17/18 04/20/19 [Symbicort 160-4.5 Mcg Inhaler] Gabapentin [Gabapentin 100mg Cap] 100 mg PO TID 12/17/18 04/20/19 Acetaminophen [Acetaminophen Extra 500 mg PO Q4HP PRN 12/18/18 04/20/19 Strength] ondansetron HCL [Ondansetron 4mg 4 mg PO Q8HP PRN 12/18/18 04/20/19 Tablet] lidocaine 4 % topical patch 1 patch TOPICAL DAILY PRN 12/24/18 04/20/19 famotidine 20 mg tablet 20 mg PO DAILY 02/06/19 04/20/19 Alendronate Sodium [Fosamax 70mg 70 mg PO WEEKLY 04/13/19 04/20/19 Tablet] Ergocalciferol (Vitamin D2) 400 unit PO BID 04/13/19 04/20/19 [Vitamin D] Metformin HCl [Metformin ER 500 mg PO DAILY 04/13/19 04/20/19 Osmotic] Spironolactone [Spironolactone 25 mg PO BID 04/13/19 04/20/19 25mg Tablet] Allergies Allergy/AdvReac Type Severity Reaction Status Date / Time orange juice Allergy Mild Rash Verified 04/06/19 11:14 [facility] History - Hepatitis A Screen Drug use history?: No High risk sexual behaviors?: No History of sexually transmitted infection?: No Currently employed?: No Childcare worker?: No Do you have indoor plumbing?: Yes Do you have electricity?: Yes Attestation statement:: This patient has been screened for Hepatitis A risk factors. I have reviewed the patient's past medical history: Yes Medical History: Reports:: Anxiety, Congestive Heart Failure, Chronic Obstructive Pulmonary Disease (COPD), Diabetes Mellitus Type 2, Hyperlipidemia, Hypertension Denies:: Cancer, Diabetes Mellitus Type 1, Internal Pacemaker, MRSA Other Medical History: Reports: Arthritis, Sinus Problems Other Surgeries: Yes: Colonoscopy, . No: Pacemaker Amputation: No Fractures: No - Social History Smoking Status: Former smoker Tobacco Type: cigarettes # Packs/Day (cigarettes): 3 #Yrs smoked (if former smoker): 1 Alcohol Intake: never Alcohol Intake Frequency:: 3 or more drinks per day Substance Use Type: denies use Occupational Status: other Housing: long term Household Members: other Comment: I took care of her who had COPD and possible cancer. He several years ago now and she has moved from the home they had to an apartment. She has had a homeless woman coming in and out cooking for her intermittently but has no other help from any relatives. She has a puppy at home. - Psychiatric History Pschychiatric History:: Reports:: Anxiety, Bipolar Disorder Family Hx:: Unable to obtain ROS Obtained: Yes All systems reviewed & no additional complaints Physical Exam - General General appearance: lethargic, in distress (SHE is breathing hard with increased expiration force time.) - Head Head exam: atraumatic, normocephalic, normal inspection - Eye Eye exam: Present: normal appearance, PERRL, EOMI - ENT ENT exam: Present: normal exam, normal oropharynx, mucous membranes dry, normal external ear exam - Neck Neck exam: Present: normal inspection, full ROM, trachea midline - Chest Chest inspection: Present: normal inspection, symmetric chest wall rise - Respiratory Respiratory exam: Present: wheezes, accessory muscle use, prolonged expiratory phase, other ( bilateral coarse breath sounds with wheezing and bronchospasm bilaterally.) - Cardiovascular Cardiovascular exam: Present: regular rate, normal rhythm. Absent: JVD - Abdominal Exam Abdominal exam: Present: soft, normal bowel sounds. Absent: distention, tenderness, guarding - Extremities Exam Extremities exam: Present: normal inspection, full ROM, normal capillary refill. Absent: calf tenderness - Back Exam Back exam: Present: normal inspection. Absent: tenderness - Neurological Exam Neurological exam: Present: alert, oriented X3, CN II-XII intact - Psychiatric Psychiatric exam: Present: normal affect, normal mood - Skin Skin exam: Present: warm, dry, intact, normal color
[2019-04-20 09:45] LABS: Basophils # 0.1 K/mm3 (0-0.2); Basophils % 0.7 % (0.1-2.0); Eosinophils % 0.4 % (0.1-12.0); Hemoglobin 12.9 g/dL (12.2-16.2); Lymphocytes # 0.8 K/mm3 (0.7-4.5); Lymphocytes % 10.6 % (10-50); Mean Corpuscular HGB Conc 29.3 g/dL (31.8-35.4); Mean Corpuscular Volume 96.2 fl (81-99); Mean Platelet Volume 7.4 fl (7.4-10.4); Monocytes # 0.6 K/mm3 (0.1-1.0); Monocytes % 7.5 % (1.7-9.3); Neutrophils # 6.3 K/mm3 (1.8-7.8); Neutrophils % 80.9 % (37.0-80.0); Platelet Count 213 K/mm3 (142-424); Red Blood Count 4.57 M/mm3 (4.20-5.40); Red Cell Distribution Width 13.5 % (11.5-17.5); White Blood Count 7.8 K/mm3 (4.8-10.8)
[2019-04-20 10:06] LABS: Alanine Aminotransferase 56 U/L (12-78); Albumin Level 3.8 gm/dL (3.4-5.0); Alkaline Phosphatase 97 U/L (46-116); Anion Gap 3.6 mEq/L (5-15); Aspartate Amino Transferase 16 U/L (15-37); Bilirubin,Total 0.7 mg/dL (0.2-1.0); Blood Urea Nitrogen 16 mg/dL (7-18); Calcium 9.9 mg/dL (8.5-10.1); Chloride 94 mmol/L (98-107); Globulin 3.9 gm/dl (1.3-3.2); Glucose 207 mg/dL (74-106); Sodium 137 mmol/L (136-145); Total Protein,Serum 7.7 gm/dL (6.4-8.2)
[2019-04-20 10:08] LABS: Carbon Dioxide 44 mmol/L (21.0-32.0)
[2019-04-20 11:08] LABS: ABG PCO2 72.1 mmhg (35.0-45.0)
--- NOTE | 2019-04-20 11:48 | Pharmacy Consult Notes ---
[facility] Pharmacy VTE Monitoring - Patient Demographics Admission date: 04/20/19 Report Date: 04/20/19 Time: 11:48 Allergies/Adverse Reactions: Patient Allergies orange juice Allergy (Mild, Verified 04/06/19 11:14) Rash Height: 1.57 m Weight: 77.111 kg Patient Problems: Current Active Problems Severe sepsis (Acute) Dyspnea (Chronic) Dehydration (Acute) Pneumonia (Acute) COPD exacerbation (Acute) Respiratory failure (Acute) - VTE Risk Labs: VTE Related Lab Results Hgb 12.9 g/dL (12.2-16.2) 04/20/19 09:25 Hct 44.0 % (37.0-47.0) 04/20/19 09:25 Plt Count 213 K/mm3 (142-424) 04/20/19 09:25 BUN 16 mg/dL (7-18) 04/20/19 09:25 Creatinine 0.80 mg/dL (0.55-1.02) 04/20/19 09:25 Estimated Creat Clear 66 mL/min (50-200) 04/20/19 09:25 VTE Score: 3 VTE Risk Level: Low Risk - Prophylaxis VTE Prophylaxis Ordered?: Yes Types of VTE Prophylaxis: TEDS Knee High Location of Applied Device: Bilateral Lower Extremeties
[2019-04-20 12:02] LABS: ABG Base Excess 19.4 mmol/L (-2.4-2.3); ABG HCO3 47.7 mmhg (22.0-26.0); ABG Oxygen Saturation 91 % (90-100); ABG PO2 65.7 mmhg (80-100); ABG TCO2 51.7 mmhg (23-27)
[2019-04-20 13:24] LABS: Allen's Test ACCEPTABLE; Oxygen 45 %
[2019-04-20 13:26] LABS: ABG PCO2 129.8 mmhg (35.0-45.0); ABG PH 7.18 mmol/L (7.35-7.45)
--- NOTE | 2019-04-20 13:55 | History & Physical Report ---
*Admission Date: 04/20/19 *Chief complaint: soa *History of present illness: 69-year-old female presents with complaints of shortness of breath and altered mental status since early this morning. History of COPD and is on oxygen at 2 liters per nc 08/10. Per [facility] staff the patient was altered and drowsy this morning, coughing and her oxygen saturation was low. Pt us unable to talk due to being on bipap, does open eyes when spoke to. pt admitted for copd ex and hypoxia. [facility] History I have reviewed the patient's past medical history: Yes Medical History: Reports:: Anxiety, Congestive Heart Failure, Chronic Obstructive Pulmonary Disease (COPD), Diabetes Mellitus Type 2, Hyperlipidemia, Hypertension Denies:: Cancer, Diabetes Mellitus Type 1, Internal Pacemaker, MRSA *Have you ever received a pneumonia vaccine?: Yes *Have you received a flu vaccine this season?: Yes Other Medical History: Reports: Arthritis, Sinus Problems Other Surgeries: Yes: Colonoscopy, . No: Pacemaker Amputation: No Fractures: No - *Social History Smoking Status: Former smoker Tobacco Type: cigarettes # Packs/Day (cigarettes): 1 #Yrs smoked (if former smoker): 1 Alcohol Intake: never Alcohol Intake Frequency:: 3 or more drinks per day Substance Use Type: denies use *Occupational Status:: retired Housing: [facility] Household Members: other *Travel in the last 8 weeks: None - Psychiatric History Pschychiatric History:: Reports:: Anxiety, Bipolar Disorder Family Hx:: Unable to obtain Review of Systems - Review of Systems Review of systems:: pertinent systems reviewed and negative unless documented below - Constitutional Denies body ache(s), Denies fatigue, Denies lack of energy - Eyes Denies change in vision, Denies pain - ENT Denies nasal obstruction, Denies sore throat, Denies throat swelling - *Cardiovascular Reports shortness of breath, Reports shortness of breath with activity, Denies chest pain at rest, Denies chest pain with activity - *Respiratory Reports cough, Reports shortness of breath, Reports shortness of breath with activity - *Gastrointestinal Denies nausea, Denies vomiting - *Genitourinary Denies urinary urgency - *Musculoskeletal Denies body aches - Integumentary/Breasts Denies rash - *Neurologic Denies dizziness - Psychiatric Denies anxiety - Endocrine Denies flushing - Hematologic/Lymphatic Denies easy bruising - Allergic/Immunologic Denies itchy eyes Meds Home Medications Medication Instructions Recorded Confirmed Type Calcium Carbonate [Tums 500mg 1,000 mg PO QIDP PRN 07/01/18 04/20/19 History chewtab] Quetiapine Fumarate [Seroquel 25mg 25 mg PO BID 07/01/18 04/20/19 History tablet] Morphine Sulfate [Roxanol 20mg/mL 0.25 ml PO Q4HP PRN 07/02/18 04/20/19 History 1mL oral solution UDC] Budesonide/Formoterol Fumarate 2 puffs IH BID 12/17/18 04/20/19 History [Symbicort 160-4.5 Mcg Inhaler] Gabapentin [Gabapentin 100mg Cap] 100 mg PO TID 12/17/18 04/20/19 History Acetaminophen [Acetaminophen Extra 500 mg PO Q4HP PRN 12/18/18 04/20/19 History Strength] ondansetron HCL [Ondansetron 4mg 4 mg PO Q8HP PRN 12/18/18 04/20/19 History Tablet] lidocaine 4 % topical patch 1 patch TOPICAL DAILYP PRN 12/24/18 04/20/19 History famotidine 20 mg tablet 20 mg PO DAILY 02/06/19 04/20/19 History Alendronate Sodium [Fosamax 70mg 70 mg PO WEEKLY 04/13/19 04/20/19 History Tablet] Metformin HCl [Metformin ER 500 mg PO DAILY 04/13/19 04/20/19 History Osmotic] Spironolactone [Spironolactone 25 mg PO BID 04/13/19 04/20/19 History 25mg Tablet] Calcium Carbonate [Calcium] 600 mg PO BID 04/20/19 04/20/19 History Cholecalciferol (Vitamin D3) 400 unit PO BID 04/20/19 04/20/19 History [Vitamin D3] Allergies Allergy/AdvReac Type Severity Reaction Status Date / Time orange juice Allergy Mild Rash Verified 04/06/19 11:14 Exam Vital signs and Labs for Last 24 Hours: Temp Pulse Resp BP Pulse Ox 98.6 F 111 H 24 137/71 91 L 04/20/19 11:48 04/20/19 11:48 04/20/19 11:48 04/20/19 11:48 04/20/19 11:48 Laboratory Results - last 24 hr 04/20/19 09:22: ABG pH 7.30 L, ABG pCO2 72.1 H, ABG pO2 57.0 L, ABG HCO3 34.3 H, ABG Total CO2 36.5 H, ABG O2 Saturation 89 L, ABG Base Excess 7.8 H 04/20/19 09:25: WBC 7.8, RBC 4.57, Hgb 12.9, Hct 44.0, MCV 96.2, MCH 28.2, MCHC 29.3 L, RDW 13.5, Plt Count 213, MPV 7.4, Neut % (Auto) 80.9 H, Lymph % (Auto) 10.6, [place] % (Auto) 7.5, Eos % (Auto) 0.4, Baso % (Auto) 0.7, Neut # (Auto) 6.3, Lymph # (Auto) 0.8, [place] # (Auto) 0.6, Eos # (Auto) 0.0, Baso # (Auto) 0.1 04/20/19 09:25: Sodium 137, Potassium 4.6, Chloride 94 L, Carbon Dioxide 44 H*, Anion Gap 3.6 L, BUN 16, Creatinine 0.80, Estimated Creat Clear 66, Estimated GFR 71, Est GFR ( Amer) 86, Glucose 207 H, Calcium 9.9, Total Bilirubin 0.7, AST 16, ALT 56, Alkaline Phosphatase 97, Troponin I < 0.02, Total Protein 7.7, Albumin 3.8, Globulin 3.9 H, Albumin/Globulin Ratio 1.0 L 04/20/19 09:25: Lactate 0.9 04/20/19 10:55: Influenza Type A Ag Negative, Influenza Type B Ag Negative 04/20/19 11:30: Specimen Source Left radial, O2 % 45, ABG pH 7.18 L*, ABG pCO2 129.8 H, ABG pO2 65.7 L, ABG HCO3 47.7 H, ABG Total CO2 51.7 H, ABG O2 Saturation 91, ABG Base Excess 19.4 H, Jaylen Test Acceptable I & O for Last 24 hours: Intake & Output 02/01/20 02/02/20 02/03/20 02/04/20 11:59 11:59 11:59 11:59 Weight 174 lb 8 oz - Constitutional moderate distress, chronically ill appearing - *Routine HEENT Exam Head: Present: normocephalic Eye: Present: PERRL ENT: Present: mucous membranes moist - *Routine Neck Exam Present: supple. Absent: lymphadenopathy - *Routine Respiratory Exam Present: respiratory distress, wheezes, diminished air movement Comments: on bipap - *Routine Cardiovascular Exam Present: tachycardia - *Routine Abdominal Exam Present: soft, normoactive bowel sounds. Absent: tenderness - *Routine Extremities Exam Present: full ROM, normal capillary refill. Absent: cyanosis, clubbing, edema - *Routine Skin Exam Present: warm. Absent: rash - *Routine Neurological Exam Present: alert, altered mental status, moving all extremities - Routine Psychiatric Exam Present: unable to assess Assessment and Plan (1) COPD exacerbation Current visit: Yes Status: Acute Category: Medical Code(s): J44.1 - Chron ic obstructive pulmonary disease with (acute) exacerbation (2) Respiratory failure Current visit: Yes Status: Acute Qualifiers: Chronicity: acute Respiratory failure complication: hypoxia and hypercapnia Qualified Code(s): J96.01 - Acute respiratory failure with hypoxia; J96.02 - Acute respiratory failure with hypercapnia Category: Medical Code(s): J96.90 - Respiratory failure, unspecified, unspecified whether with hypoxia or hypercapnia (3) Severe sepsis Current visit: Yes Status: Acute Category: Medical Code(s): A41.9 - Sepsis, unspecified organism; R65.20 - Severe sepsis without septic shock (4) Acute and chronic respiratory failure ([id number]) Current visit: No Status: Acute Category: Medical Code(s): J96.20 - Acute and chronic respiratory failure, unspecified whether with hypoxia or hypercapnia (5) Acute respiratory acidosis Current visit: No Status: Acute Category: Medical Code(s): E87.2 - Acidosis (6) Altered mental status Current visit: No Status: Acute Qualifiers: Altered mental status type: delirium Qualified Code(s): R41.0 - Disorientation, unspecified Category: Medical Code(s): R41.82 - Altered mental status, unspecified (7) Diabetes mellitus Current visit: No Status: Chronic Qualifiers: Diabetes mellitus type: type 2 Diabetes mellitus rn long term care insulin use: with m[facility] use Diabetes mellitus complication status: with circulatory complication Diabetes mellitus complication detail: with other circulatory complications Qualified Code(s): E11.59 - Type 2 diabetes mellitus with other circulatory complications; Z79.4 - rn long term care (current) use of insulin Category: Medical Code(s): E11.9 - Type 2 diabetes mellitus without complications (8) Obesity (BMI 30.0-34.9) Current visit: No Status: Chronic Category: Medical Code(s): E66.9 - Obesity, unspecified - Assessment and plan all Dx Assessment and Plan for all problems:: bipap labs antibiotics steroids
[2019-04-20 13:58] LABS: ABG HCO3 46.2 mmhg (22.0-26.0); ABG Oxygen Saturation 87 % (90-100); ABG PO2 56.9 mmhg (80-100)
[2019-04-20 14:09] LABS: ABG PCO2 124.3 mmhg (35.0-45.0); ABG PH 7.19 mmol/L (7.35-7.45)
[2019-04-20 15:23] LABS: ABG Base Excess 13.3 mmol/L (-2.4-2.3); ABG HCO3 39.3 mmhg (22.0-26.0); ABG Oxygen Saturation 99 % (90-100); ABG PH 7.33 mmol/L (7.35-7.45); ABG PO2 132.7 mmhg (80-100); ABG TCO2 41.6 mmhg (23-27)
[2019-04-20 15:30] LABS: Oxygen 60 %
--- NOTE | 2019-04-20 17:49 | Electrocardiograph Report ---
APPROVED REPORT Exam: Resting ECG HR:100 bpm ECG Measurements Heart Rate 100 AXES MO 144 P 73 QRSd 78 QRS 31 QT 328 T65 QTc 423 <Conclusion> Normal sinus rhythm Incomplete RBBB Low voltage QRS Borderline ECG Electronically signed by : Abdulkadir Grover, 04/20/2019 17:48:58
[2019-04-20 19:16] LABS: Microscopic, Urine URINE MICROSCOPIC (MICROSCOPIC)
--- NOTE | 2019-04-20 19:31 | Progress Note ---
Internal Medicine - PN: Subj *Date: 04/20/19 *Time: 19:00 Interval history: pt with progressive sob and diff with breathing and failed cpap- to was intubated by ansethesia and placed on vent and moved to icu Exam Vital signs and Labs for Last 24 Hours: Temp Pulse Resp BP Pulse Ox 98.1 F 73 18 119/56 L 89 L 04/20/19 19:11 04/20/19 19:11 04/20/19 19:11 04/20/19 19:11 04/20/19 19:11 Laboratory Results - last 24 hr 04/20/19 09:22: ABG pH 7.30 L, ABG pCO2 72.1 H, ABG pO2 57.0 L, ABG HCO3 34.3 H, ABG Total CO2 36.5 H, ABG O2 Saturation 89 L, ABG Base Excess 7.8 H 04/20/19 09:25: WBC 7.8, RBC 4.57, Hgb 12.9, Hct 44.0, MCV 96.2, MCH 28.2, MCHC 29.3 L, RDW 13.5, Plt Count 213, MPV 7.4, Neut % (Auto) 80.9 H, Lymph % (Auto) 10.6, [place] % (Auto) 7.5, Eos % (Auto) 0.4, Baso % (Auto) 0.7, Neut # (Auto) 6.3, Lymph # (Auto) 0.8, [place] # (Auto) 0.6, Eos # (Auto) 0.0, Baso # (Auto) 0.1 04/20/19 09:25: Sodium 137, Potassium 4.6, Chloride 94 L, Carbon Dioxide 44 H*, Anion Gap 3.6 L, BUN 16, Creatinine 0.80, Estimated Creat Clear 66, Estimated GFR 71, Est GFR ( Amer) 86, Glucose 207 H, Calcium 9.9, Total Bilirubin 0.7, AST 16, ALT 56, Alkaline Phosphatase 97, Troponin I < 0.02, Total Protein 7.7, Albumin 3.8, Globulin 3.9 H, Albumin/Globulin Ratio 1.0 L 04/20/19 09:25: Lactate 0.9 04/20/19 10:55: Influenza Type A Ag Negative, Influenza Type B Ag Negative 04/20/19 11:30: Specimen Source Left radial, O2 % 45, ABG pH 7.18 L*, ABG pCO2 129.8 H, ABG pO2 65.7 L, ABG HCO3 47.7 H, ABG Total CO2 51.7 H, ABG O2 Saturation 91, ABG Base Excess 19.4 H, Jaylen Test Acceptable 04/20/19 13:54: ABG pH 7.19 L*, ABG pCO2 124.3 H, ABG pO2 56.9 L, ABG HCO3 46.2 H, ABG Total CO2 50.0 H, ABG O2 Saturation 87 L*, ABG Base Excess 18.0 H 04/20/19 14:05: Troponin I < 0.02 04/20/19 15:11: Specimen Source Right brachial, O2 % 60, ABG pH 7.33 L, ABG pCO2 76.0 H, ABG pO2 132.7 H, ABG HCO3 39.3 H, ABG Total CO2 41.6 H, ABG O2 Saturation 99, ABG Base Excess 13.3 H I & O for Last 24 hours: Intake & Output 04/18/19 04/19/19 04/20/19 04/21/19 11:59 11:59 11:59 11:59 Intake Total 367 / 367 Output Total 700 / 700 Balance -333 / -333 Weight 174 lb 8 oz - Constitutional somnolent - *Routine HEENT Exam Head: Present: normocephalic Eye: Present: EOMI, PERRL Comments: intubated - *Routine Neck Exam Absent: JVD - *Routine Respiratory Exam Present: rhonchi - *Routine Cardiovascular Exam Present: RRR, murmur - *Routine Abdominal Exam Present: soft Comments: has ng tube - *Routine Extremities Exam Absent: calf tenderness - *Routine Skin Exam Present: intact - *Routine Neurological Exam on vent sedated - Routine Psychiatric Exam Present: unable to assess Assessment and Plan (1) COPD exacerbation Current visit: Yes Status: Acute Category: Medical Code(s): J44.1 - Chronic obstructive pulmonary disease with (acute) exacerbation (2) Respiratory failure Current visit: Yes Status: Acute Qualifiers: Chronicity: acute Respiratory failure complication: hypoxia and hypercapnia Qualified Code(s): J96.01 - Acute respiratory failure with hypoxia; J96.02 - Acute respiratory failure with hypercapnia Category: Medical Code(s): J96.90 - Respiratory failure, unspecified, unspecified whether with hypoxia or hypercapnia (3) Severe sepsis Current visit: Yes Status: Acute Category: Medical Code(s): A41.9 - Sepsis, unspecified organism; R65.20 - Severe sepsis without septic shock (4) Acute and chronic respiratory failure ([id number]) Current visit: No Status: Acute Category: Medical Code(s): J96.20 - Acute and chronic respiratory failure, unspecified whether with hypoxia or hypercapnia (5) Acute respiratory acidosis Current visit: No Status: Acute Category: Medical Code(s): E87.2 - Acidosis (6) Altered mental status Current visit: No Status: Acute Qualifiers: Altered mental status type: delirium Qualified Code(s): R41.0 - Disorientation, unspecified Category: Medical Code(s): R41.82 - Altered mental status, unspecified (7) Diabetes mellitus Current visit: No Status: Chronic Qualifiers: Diabetes mellitus type: type 2 Diabetes mellitus director long term care insulin use: with director long term care use Diabetes mellitus complication status: with circulatory complication Diabetes mellitus complication detail: with other circulatory complications Qualified Code(s): E11.59 - Type 2 diabetes mellitus with other circulatory complications; Z79.4 - director long term care (current) use of insulin Category: Medical Code(s): E11.9 - Type 2 diabetes mellitus without complications (8) Obesity (BMI 30.0-34.9) Current visit: No Status: Chronic Category: Medical Code(s): E66.9 - Obesity, unspecified
[2019-04-20 19:53] LABS: Appearance,Urine CLEAR (Clear); Bilirubin,Urine Negative (Negative); Blood, Urine Negative (Negative); Color,Urine YELLOW (Yellow); Glucose,Urine (UA) 1+ (Negative); Ketones,Urine Negative (Negative); Leukocyte Esterase,Urine Negative (Negative); PH,Urine 5.5 (5.0-8.5); Protein,Urine Negative (Negative); Specific Gravity, Urine >= 1.030 (1.005-1.030); Urobilinogen,Urine 0.2 EU/dl (0.2)
[2019-04-20 20:30] LABS: Amorphous Sediment,Urine 3+ /lpf
[2019-04-21 06:06] LABS: ABG Base Excess 9.8 mmol/L (-2.4-2.3); ABG HCO3 33.6 mmhg (22.0-26.0); ABG PH 7.46 mmol/L (7.35-7.45); ABG PO2 83.8 mmhg (80-100); ABG TCO2 35.1 mmhg (23-27)
[2019-04-21 06:08] LABS: Oxygen 40 %; PEEP 5
[2019-04-21 06:09] LABS: Allen's Test acceptable
[2019-04-21 06:09] LABS: Basophils % 0.1 % (0.1-2.0); Eosinophils % 0.1 % (0.1-12.0); Hematocrit 31.8 % (37.0-47.0); Lymphocytes # 0.7 K/mm3 (0.7-4.5); Mean Corpuscular HGB Conc 30.7 g/dL (31.8-35.4); Mean Corpuscular Volume 91.9 fl (81-99); Mean Platelet Volume 8.9 fl (7.4-10.4); Monocytes # 0.4 K/mm3 (0.1-1.0); Monocytes % 6.2 % (1.7-9.3); Neutrophils # 4.9 K/mm3 (1.8-7.8); Neutrophils % 82.5 % (37.0-80.0); Platelet Count 147 K/mm3 (142-424); Red Blood Count 3.45 M/mm3 (4.20-5.40); Red Cell Distribution Width 13.8 % (11.5-17.5)
[2019-04-21 06:28] LABS: Hemoglobin 9.7 g/dL (12.2-16.2)
[2019-04-21 06:51] LABS: Anion Gap 9.5 mEq/L (5-15)
[2019-04-21 07:02] LABS: Calcium 7.3 mg/dL (8.5-10.1)
--- NOTE | 2019-04-21 09:19 | Progress Note ---
Internal Medicine - PN: Subj *Date: 04/21/19 *Time: 09:16 Interval history: 69-year-old female patient in ICU, sedated, tolerating ventilator without any difficulties Exam Vital signs and Labs for Last 24 Hours: Temp Pulse Resp BP Pulse Ox 97.8 F 77 18 130/59 L 96 04/21/19 07:00 04/21/19 07:00 04/21/19 07:00 04/21/19 07:00 04/21/19 07:00 Laboratory Results - last 24 hr 04/20/19 09:22: ABG pH 7.30 L, ABG pCO2 72.1 H, ABG pO2 57.0 L, ABG HCO3 34.3 H, ABG Total CO2 36.5 H, ABG O2 Saturation 89 L, ABG Base Excess 7.8 H 04/20/19 09:25: WBC 7.8, RBC 4.57, Hgb 12.9, Hct 44.0, MCV 96.2, MCH 28.2, MCHC 29.3 L, RDW 13.5, Plt Count 213, MPV 7.4, Neut % (Auto) 80.9 H, Lymph % (Auto) 10.6, [place] % (Auto) 7.5, Eos % (Auto) 0.4, Baso % (Auto) 0.7, Neut # (Auto) 6.3, Lymph # (Auto) 0.8, [place] # (Auto) 0.6, Eos # (Auto) 0.0, Baso # (Auto) 0.1 04/20/19 09:25: Sodium 137, Potassium 4.6, Chloride 94 L, Carbon Dioxide 44 H*, Anion Gap 3.6 L, BUN 16, Creatinine 0.80, Estimated Creat Clear 66, Estimated GFR 71, Est GFR ( Amer) 86, Glucose 207 H, Calcium 9.9, Total Bilirubin 0.7, AST 16, ALT 56, Alkaline Phosphatase 97, Troponin I < 0.02, Total Protein 7.7, Albumin 3.8, Globulin 3.9 H, Albumin/Globulin Ratio 1.0 L 04/20/19 09:25: Lactate 0.9 04/20/19 10:55: Influenza Type A Ag Negative, Influenza Type B Ag Negative 04/20/19 11:30: Specimen Source Left radial, O2 % 45, ABG pH 7.18 L*, ABG pCO2 129.8 H, ABG pO2 65.7 L, ABG HCO3 47.7 H, ABG Total CO2 51.7 H, ABG O2 Saturation 91, ABG Base Excess 19.4 H, Jaylen Test Acceptable 04/20/19 13:54: ABG pH 7.19 L*, ABG pCO2 124.3 H, ABG pO2 56.9 L, ABG HCO3 46.2 H, ABG Total CO2 50.0 H, ABG O2 Saturation 87 L*, ABG Base Excess 18.0 H 04/20/19 14:05: Troponin I < 0.02 04/20/19 15:00: Urine Color Yellow, Urine Appearance Clear, Urine pH 5.5, Ur Specific [place] >= 1.030, Urine Protein Negative, Urine Glucose (UA) 1+, Urine Ketones Negative, Urine Blood Negative, Urine Nitrate Negative, Urine Bilirubin Negative, Urine Urobilinogen 0.2, Ur Leukocyte Esterase Negative, Amorphous Sediment 3+ 04/20/19 15:11: Specimen Source Right brachial, O2 % 60, ABG pH 7.33 L, ABG pCO2 76.0 H, ABG pO2 132.7 H, ABG HCO3 39.3 H, ABG Total CO2 41.6 H, ABG O2 Saturation 99, ABG Base Excess 13.3 H 04/20/19 20:12: Troponin I < 0.02 04/21/19 05:34: WBC 6.0, RBC 3.45 L, Hgb 9.7 L D, Hct 31.8 L, MCV 91.9, MCH 28.2, MCHC 30.7 L, RDW 13.8, Plt Count 147 D, MPV 8.9, Neut % (Auto) 82.5 H, Lymph % (Auto) 11.0, [place] % (Auto) 6.2, Eos % (Auto) 0.1, Baso % (Auto) 0.1, Neut # (Auto) 4.9, Lymph # (Auto) 0.7, [place] # (Auto) 0.4, Eos # (Auto) 0.0, Baso # (Auto) 0.0 04/21/19 05:34: Sodium 141, Potassium 3.5 D, Chloride 103, Carbon Dioxide 32 D , Anion Gap 9.5, BUN 17, Creatinine 0.74, Estimated Creat Clear 67, Estimated GFR 78, Est GFR ( Amer) 94, Glucose 176 H, Calcium 7.3 L D 04/21/19 06:00: Specimen Source Right radial, O2 % 40, ABG pH 7.46 H, ABG pCO2 48.0 H, ABG pO2 83.8, ABG HCO3 33.6 H, ABG Total CO2 35.1 H, ABG Base Excess 9.8 H, Jaylen Test acceptable, Vent Rate 18, PEEP 5 I & O for Last 24 hours: Intake & Output 04/18/19 04/19/19 04/20/19 04/21/19 23:59 23:59 23:59 23:59 Intake Total 1746 / 1746 1533 / 1533 Output Total 1020 / 1020 610 / 610 Balance 726 / 726 923 / 923 Weight 174 lb 8 oz Microbiology Reports for the Last 24 Hours: Microbiology 04/20/19 14:42 Sputum - Expectorated Sputum Gram Stain - Final - Constitutional no acute distress - *Routine HEENT Exam Head: Present: normocephalic, atraumatic Eye: Present: EOMI, PERRL ENT: Present: mucous membranes dry - *Routine Neck Exam Present: supple. Absent: JVD, lymphadenopathy - *Routine Respiratory Exam Present: rhonchi, wheezes. Absent: accessory muscle use - *Routine Cardiovascular Exam Present: RRR, murmur - *Routine Abdominal Exam Present: soft, normoactive bowel sounds. Absent: tenderness, firm - *Routine Extremities Exam Present: pulses intact. Absent: cyanosis - *Routine Skin Exam Present: intact, warm. Absent: cyanosis, jaundice - *Routine Neurological Exam Sedated - Routine Psychiatric Exam Present: unable to assess Assessment and Plan (1) COPD exacerbation Current visit: Yes Status: Acute Category: Medical Code(s): J44.1 - Chronic obstructive pulmonary disease with (acute) exacerbation (2) Respiratory failure Current visit: Yes Status: Acute Qualifiers: Chronicity: acute on chronic Respiratory failure complication: hypoxia and hypercapnia Qualified Code(s): J96.21 - Acute and chronic respiratory failure with hypoxia; J96.22 - Acute and chronic respiratory failure with hypercapnia Category: Medical Code(s): J96.90 - Respiratory failure, unspecified, unspecified whether with hypoxia or hypercapnia (3) Severe sepsis Current visit: Yes Status: Acute Category: Medical Code(s): A41.9 - Sepsis, unspecified organism; R65.20 - Severe sepsis without septic shock (4) Acute and chronic respiratory failure ([id number]) Current visit: No Status: Acute Category: Medical Code(s): J96.20 - Acute and chronic respiratory failure, unspecified whether with hypoxia or hypercapnia (5) Acute respiratory acidosis Current visit: No Status: Acute Category: Medical Code(s): E87.2 - Acidosis (6) Altered mental status Current visit: No Status: Acute Qualifiers: Altered mental status type: delirium Qualified Code(s): R41.0 - Disorientation, unspecified Category: Medical Code(s): R41.82 - Altered mental status, unspecified (7) Diabetes mellitus Current visit: No Status: Chronic Qualifiers: Diabetes mellitus type: type 2 Diabetes mellitus snf insulin use: with ad terminal makeup operator use Diabetes mellitus complication status: with circulatory complication Diabetes mellitus complication detail: with other circulatory complications Qualified Code(s): E11.59 - Type 2 diabetes mellitus with other circulatory complications; Z79.4 - long-term (current) use of insulin Category: Medical Code(s): E11.9 - Type 2 diabetes mellitus without complications (8) Obesity (BMI 30.0-34.9) Current visit: No Status: Chronic Category: Medical Code(s): E66.9 - Obesity, unspecified - Assessment and plan all Dx Assessment and Plan for all problems:: Rounded with Dr. Dennison, all orders per Dr. Dennison 1. We will attempt to wean off ventilator 2. Awaiting cultures
[2019-04-21 14:30] LABS: ABG Base Excess 7.3 mmol/L (-2.4-2.3); ABG HCO3 32.5 mmhg (22.0-26.0); ABG Oxygen Saturation 93 % (90-100); ABG PH 7.38 mmol/L (7.35-7.45); ABG PO2 68.1 mmhg (80-100); ABG TCO2 34.2 mmhg (23-27)
[2019-04-21 14:32] LABS: Oxygen 40% %
[2019-04-21 14:33] LABS: Allen's Test Acceptable; PEEP 5; Tidal Volume 550
[2019-04-21 14:34] LABS: ABG PCO2 56.8 mmhg (35.0-45.0)
[2019-04-22 06:23] LABS: Basophils % 0.1 % (0.1-2.0); Eosinophils % 0.1 % (0.1-12.0); Hematocrit 34.3 % (37.0-47.0); Hemoglobin 10.2 g/dL (12.2-16.2); Lymphocytes # 0.2 K/mm3 (0.7-4.5); Lymphocytes % 4.4 % (10-50); Mean Corpuscular HGB Conc 29.6 g/dL (31.8-35.4); Mean Corpuscular Volume 95.4 fl (81-99); Mean Platelet Volume 7.7 fl (7.4-10.4); Monocytes # 0.2 K/mm3 (0.1-1.0); Monocytes % 3.2 % (1.7-9.3); Neutrophils # 4.8 K/mm3 (1.8-7.8); Neutrophils % 92.2 % (37.0-80.0); Platelet Count 117 K/mm3 (142-424); Red Cell Distribution Width 13.8 % (11.5-17.5); White Blood Count 5.2 K/mm3 (4.8-10.8)
[2019-04-22 06:34] LABS: Anion Gap 6.5 mEq/L (5-15)
[2019-04-22 06:38] LABS: Calcium 6.8 mg/dL (8.5-10.1)
[2019-04-22 08:35] LABS: ABG Oxygen Saturation 97 % (90-100)
--- NOTE | 2019-04-22 09:49 | Progress Note ---
Internal Medicine - PN: Subj *Date: 04/22/19 *Time: 13:09 Interval history: 69-year-old female patient sitting up in bed on Ventimask. She was extubated yesterday and has been tolerating the mask throughout the night. She reports that she feels a lot better now. Exam Vital signs and Labs for Last 24 Hours: Temp Pulse Resp BP Pulse Ox 98.0 F 89 18 141/83 H 92 L 04/22/19 08:00 04/22/19 08:00 04/22/19 08:00 04/22/19 08:00 04/22/19 08:00 Laboratory Results - last 24 hr 04/20/19 20:03: POC Glucose 254 H 04/21/19 05:20: POC Glucose 160 H 04/21/19 06:00: ABG O2 Saturation 97 04/21/19 13:10: POC Glucose 133 H 04/21/19 14:20: Specimen Source Right brachial, O2 % 40%, ABG pH 7.38, ABG pCO2 56.8 H, ABG pO2 68.1 L, ABG HCO3 32.5 H, ABG Total CO2 34.2 H, ABG O2 Saturation 93, ABG Base Excess 7.3 H, Jaylen Test Acceptable, Vent Rate 18, Tidal Volume 550 , PEEP 5 04/21/19 17:11: POC Glucose 161 H 04/21/19 20:26: POC Glucose 226 H 04/22/19 05:09: POC Glucose 232 H 04/22/19 05:48: WBC 5.2, RBC 3.60 L, Hgb 10.2 L, Hct 34.3 L, MCV 95.4, MCH 28.3, MCHC 29.6 L, RDW 13.8, Plt Count 117 L, MPV 7.7, Neut % (Auto) 92.2 H, Lymph % (Auto) 4.4 L, [place] % (Auto) 3.2, Eos % (Auto) 0.1, Baso % (Auto) 0.1, Neut # (Auto) 4.8, Lymph # (Auto) 0.2 L, [place] # (Auto) 0.2, Eos # (Auto) 0.0, Baso # (Auto) 0.0 04/22/19 05:48: Sodium 146 H, Potassium 3.5, Chloride 110 H, Carbon Dioxide 33 H , Anion Gap 6.5, BUN 9 D, Creatinine 0.63, Estimated Creat Clear 68, Estimated GFR 94, Est GFR ( Amer) 114 D, Glucose 265 H, Calcium 6.8 L I & O for Last 24 hours: Intake & Output 04/19/19 04/20/19 04/21/19 04/22/19 23:59 23:59 23:59 23:59 Intake Total 1746 / 1746 4600 / 4848 2000 Output Total 1020 / 1020 3500 / 3675 625 / 625 Balance 726 / 726 1100 / 1173 1376 / 1376 Weight 174 lb 8 oz 174 lb 8.004 oz 177 lb 1.6 oz Microbiology Reports for the Last 24 Hours: Microbiology 04/20/19 09:25 Blood Blood Culture - Preliminary NO GROWTH AFTER 48 HOURS 04/20/19 09:25 Blood Blood Culture - Preliminary NO GROWTH AFTER 48 HOURS 04/20/19 16:00 Rectum Miscellaneous Reference Culture - Preliminary - Constitutional no acute distress - *Routine HEENT Exam Head: Present: normocephalic, atraumatic. Absent: tenderness of temporal artery Eye: Present: EOMI, PERRL, normal accommodation. Absent: periorbital tenderness ENT: Present: mucous membranes dry. Absent: sinus tenderness - *Routine Neck Exam Present: supple, full ROM, trachea midline. Absent: JVD, tracheal deviation - *Routine Respiratory Exam Present: wheezes. Absent: accessory muscle use - *Routine Cardiovascular Exam Present: RRR, murmur - *Routine Abdominal Exam Present: soft, normoactive bowel sounds, obese. Absent: tenderness, firm - *Routine Extremities Exam Present: pulses intact. Absent: calf tenderness - Routine Back/Spine/Pelvis Exam Back/Spine: Present: full ROM. Absent: CVA tenderness - *Routine Skin Exam Present: intact, warm. Absent: jaundice - *Routine Neurological Exam Present: alert, oriented X3, CN II-XII intact, moving all extremities. Absent: altered mental status Assessment and Plan (1) COPD exacerbation Current visit: Yes Status: Acute Category: Medical Code(s): J44.1 - Chronic obstructive pulmonary disease with (acute) exacerbation (2) Respiratory failure Current visit: Yes Status: Acute Qualifiers: Chronicity: acute on chronic Respiratory failure complication: hypoxia and hypercapnia Qualified Code(s): J96.21 - Acute and chronic respiratory failure with hypoxia; J96.22 - Acute and chronic respiratory failure with hypercapnia Category: Medical Code(s): J96.90 - Respiratory failure, unspecified, unspecified whether with hypoxia or hypercapnia (3) Severe sepsis Current visit: Yes Status: Acute Category: Medical Code(s): A41.9 - Sepsis, unspecified organism; R65.20 - Severe sepsis without septic shock (4) Acute and chronic respiratory failure ([id number]) Current visit: No Status: Acute Category: Medical Code(s): J96.20 - Acute and chronic respiratory failure, unspecified whether with hypoxia or hypercapnia (5) Acute respiratory acidosis Current visit: No Status: Acute Category: Medical Code(s): E87.2 - Acidosis (6) Altered mental status Current visit: No Status: Acute Qualifiers: Altered mental status type: delirium Qualified Code(s): R41.0 - Disorientation, unspecified Category: Medical Code(s): R41.82 - Altered mental status, unspecified (7) Diabetes mellitus Current visit: No Status: Chronic Qualifiers: Diabetes mellitus type: type 2 Diabetes mellitus usp insulin use: wi th termite control service representative use Diabetes mellitus complication status: with circulatory complication Diabetes mellitus complication detail: with other circulatory complications Qualified Code(s): E11.59 - Type 2 diabetes mellitus with other circulatory complications; Z79.4 - longterm (current) use of insulin Category: Medical Code(s): E11.9 - Type 2 diabetes mellitus without complications (8) Obesity (BMI 30.0-34.9) Current visit: No Status: Chronic Category: Medical Code(s): E66.9 - Obesity, unspecified - Assessment and plan all Dx Assessment and Plan for all problems:: Rounded with Dr. Dennison, all orders per Dr. Dennison 1. We will attempt further weaning O2 2. We will consult pulmonology 3. Awaiting culture
[2019-04-22 11:30] LABS: Lymphocytes % 4 % (10-50); Monocytes % 1 % (2-9); Neutrophils % 95 % (42-76); Total Cells Counted 100
[2019-04-22 11:31] LABS: Hypochromasia 1+
[2019-04-23 06:09] LABS: Basophils % 0.1 % (0.1-2.0); Hematocrit 35.6 % (37.0-47.0); Hemoglobin 10.6 g/dL (12.2-16.2); Lymphocytes # 0.4 K/mm3 (0.7-4.5); Lymphocytes % 5.8 % (10-50); Mean Corpuscular HGB Conc 29.6 g/dL (31.8-35.4); Mean Corpuscular Volume 94.4 fl (81-99); Mean Platelet Volume 7.5 fl (7.4-10.4); Monocytes # 0.3 K/mm3 (0.1-1.0); Monocytes % 4.4 % (1.7-9.3); Neutrophils # 6.2 K/mm3 (1.8-7.8); Neutrophils % 89.6 % (37.0-80.0); Platelet Count 120 K/mm3 (142-424); Red Blood Count 3.77 M/mm3 (4.20-5.40); Red Cell Distribution Width 13.8 % (11.5-17.5); White Blood Count 6.9 K/mm3 (4.8-10.8)
[2019-04-23 06:35] LABS: Calcium 6.7 mg/dL (8.5-10.1)
--- NOTE | 2019-04-23 09:14 | Progress Note ---
Internal Medicine - PN: Subj *Date: 04/23/19 *Time: 09:12 Interval history: pt sitting up in bed drinking coffee, pt states she feels better, asking for cough med Exam Vital signs and Labs for Last 24 Hours: Temp Pulse Resp BP Pulse Ox 98.2 F 107 H 16 131/37 L 91 L 04/23/19 08:00 04/23/19 08:00 04/23/19 08:00 04/23/19 08:00 04/23/19 08:00 Laboratory Results - last 24 hr 04/22/19 05:48: Total Counted 100, Neutrophils % (Manual) 95 H, Lymphocytes % (Manual) 4 L, Monocytes % (Manual) 1 L, Platelet Estimate Slight decrease, Hy pochromasia 1+ 04/22/19 11:16: POC Glucose 195 H 04/22/19 16:36: POC Glucose 132 H 04/22/19 19:44: POC Glucose 280 H 04/23/19 05:17: POC Glucose 189 H 04/23/19 05:35: WBC 6.9 D, RBC 3.77 L, Hgb 10.6 L, Hct 35.6 L, MCV 94.4, MCH 28.0, MCHC 29.6 L, RDW 13.8, Plt Count 120 L, MPV 7.5, Neut % (Auto) 89.6 H, Lymph % (Auto) 5.8 L, [place] % (Auto) 4.4, Eos % (Auto) 0.0 L, Baso % (Auto) 0.1, Neut # (Auto) 6.2, Lymph # (Auto) 0.4 L, [place] # (Auto) 0.3, Eos # (Auto) 0.0, Baso # (Auto) 0.0 04/23/19 05:35: Sodium 146 H, Potassium 3.0 L, Chloride 108 H, Carbon Dioxide 33 H, Anion Gap 8.0, BUN 9, Creatinine 0.52 L, Estimated Creat Clear 70, Estimated GFR 117, Est GFR ( Amer) 142 D, Glucose 192 H D, Calcium 6.7 L I & O for Last 24 hours: Intake & Output 04/20/19 04/21/19 04/22/19 04/23/19 11:59 11:59 11:59 11:59 Intake Total 4160 / 4392 4337 / 4337 5364 / 5364 Output Total 189 / 1954 3250 / 3250 5700 / 5700 Balance 2265 / 2437 1087 / 1087 -336 / -336 Weight 174 lb 8 oz 174 lb 8.004 oz 177 lb 1.6 oz 181 lb 4.8 oz Microbiology Reports for the Last 24 Hours: Microbiology 04/20/19 14:42 Sputum - Expectorated Sputum Gram Stain - Final 04/20/19 14:42 Sputum - Expectorated Sputum Sputum Culture - Preliminary 04/20/19 09:25 Blood Blood Culture - Preliminary NO GROWTH AFTER 48 HOURS 04/20/19 09:25 Blood Blood Culture - Preliminary NO GROWTH AFTER 48 HOURS - Constitutional no acute distress, chronically ill appearing - *Routine HEENT Exam Head: Present: normocephalic Eye: Present: PERRL ENT: Present: mucous membranes moist - *Routine Neck Exam Present: supple. Absent: lymphadenopathy - *Routine Respiratory Exam Present: rhonchi, wheezes, diminished air movement - *Routine Cardiovascular Exam Present: RRR - *Routine Abdominal Exam Present: soft, normoactive bowel sounds. Absent: tenderness - *Routine Extremities Exam Present: full ROM. Absent: cyanosis, clubbing, edema - *Routine Skin Exam Present: warm. Absent: rash Comments: abrasion to left cheek - *Routine Neurological Exam Present: alert, oriented X3 - Routine Psychiatric Exam Present: normal affect Assessment and Plan (1) COPD exacerbation Current visit: Yes Status: Acute Category: Medical Code(s): J44.1 - Chronic obstructive pulmonary disease with (acute) exacerbation (2) Respiratory failure Current visit: Yes Status: Acute Qualifiers: Chronicity: acute on chronic Respiratory failure complication: hypoxia and hypercapnia Qualified Code(s): J96.21 - Acute and chronic respiratory failure with hypoxia; J96.22 - Acute and chronic respiratory failure with hypercapnia Category: Medical Code(s): J96.90 - Respiratory failure, unspecified, unspecified whether with hypoxia or hypercapnia (3) Severe sepsis Current visit: Yes Status: Acute Category: Medical Code(s): A41.9 - Sepsis, unspecified organism; R65.20 - Severe sepsis without septic shock (4) Acute and chronic respiratory failure ([id number]) Current visit: No Status: Acute Category: Medical Code(s): J96.20 - Acute and chronic respiratory failure, unspecified whether with hypoxia or hypercapnia (5) Acute respiratory acidosis Current visit: No Status: Acute Category: Medical Code(s): E87.2 - Acidosis (6) Altered mental status Current visit: No Status: Acute Qualifiers: Altered mental status type: delirium Qualified Code(s): R41.0 - Disorientation, unspecified Category: Medical Code(s): R41.82 - Altered mental status, unspecified (7) Diabetes mellitus Current visit: No Status: Chronic Qualifiers: Diabetes mellitus type: type 2 Diabetes mellitus joint terminal attack controller insulin use: with fdc use Diabetes mellitus complication status: with circulatory complication Diabetes mellitus complication detail: with other circulatory complications Qualified Code(s): E11.59 - Type 2 diabetes mellitus with other circulatory complications; Z79.4 - terminal manager (current) use of insulin Category: Medical Code(s): E11.9 - Type 2 diabetes mellitus without complications (8) Obesity (BMI 30.0-34.9) Current visit: No Status: Chronic Category: Medical Code(s): E66.9 - Obesity, unspecified (9) Morbid obesity with alveolar hypoventilation Current visit: Yes Status: Acute Category: Medical Code(s): E66.2 - Morbid (severe) obesity with alveolar hypoventilation - Assessment and plan all Dx Assessment and Plan for all problems:: rounded with dr connolly all orders per dr vega consult pulm
[2019-04-23 10:27] LABS: Monocytes % 4 % (2-9); Neutrophils % 96 % (42-76); Total Cells Counted 100
[2019-04-23 10:28] LABS: RBC Morphology Normal
--- NOTE | 2019-04-23 13:11 | Progress Note ---
Internal Medicine - PN: Subj *Date: 04/23/19 *Time: 13:07 Exam Vital signs and Labs for Last 24 Hours: Temp Pulse Resp BP Pulse Ox 98.2 F 108 H 16 131/37 L 89 L 04/23/19 08:00 04/23/19 11:30 04/23/19 08:00 04/23/19 08:00 04/23/19 11:30 Laboratory Results - last 24 hr 04/22/19 16:36: POC Glucose 132 H 04/22/19 19:44: POC Glucose 280 H 04/23/19 05:17: POC Glucose 189 H 04/23/19 05:35: WBC 6.9 D, RBC 3.77 L, Hgb 10.6 L, Hct 35.6 L, MCV 94.4, MCH 28.0, MCHC 29.6 L, RDW 13.8, Plt Count 120 L, MPV 7.5, Neut % (Auto) 89.6 H, Lymph % (Auto) 5.8 L, [place] % (Auto) 4.4, Eos % (Auto) 0.0 L, Baso % (Auto) 0.1, Neut # (Auto) 6.2, Lymph # (Auto) 0.4 L, [place] # (Auto) 0.3, Eos # (Auto) 0.0, Baso # (Auto) 0.0, Total Counted 100, Neutrophils % (Manual) 96 H, Monocytes % (Manual) 4, Platelet Estimate Slight increase, RBC Morphology Normal 04/23/19 05:35: Sodium 146 H, Potassium 3.0 L, Chloride 108 H, Carbon Dioxide 33 H, Anion Gap 8.0, BUN 9, Creatinine 0.52 L, Estimated Creat Clear 70, Estimated GFR 117, Est GFR ( Amer) 142 D, Glucose 192 H D, Calcium 6.7 L 04/23/19 11:21: POC Glucose 207 H I & O for Last 24 hours: Intake & Output 04/20/19 04/21/19 04/22/19 04/23/19 23:59 23:59 23:59 23:59 Intake Total 1746 / 1746 4600 / 4848 4933 / 4933 2582 / 2582 Output Total 1020 / 1020 3500 / 3675 4325 / 4325 3200 / 3200 Balance 726 / 726 1100 / 1173 608 / 608 -618 / -618 Weight 79.152 kg 79.152 kg 80.331 kg 82.236 kg Microbiology Reports for the Last 24 Hours: Microbiology 04/20/19 14:42 Sputum - Expectorated Sputum Gram Stain - Final 04/20/19 14:42 Sputum - Expectorated Sputum Sputum Culture - Final Normal Respiratory May 04/20/19 09:25 Blood Blood Culture - Preliminary NO GROWTH AFTER 48 HOURS 04/20/19 09:25 Blood Blood Culture - Preliminary NO GROWTH AFTER 48 HOURS Assessment and Plan (1) COPD exacerbation Current visit: Yes Status: Acute Category: Medical Code(s): J44.1 - Chronic obstructive pulmonary disease with (acute) exacerbation (2) Respiratory failure Current visit: Yes Status: Acute Qualifiers: Chronicity: acute on chronic Respiratory failure complication: hypoxia and hypercapnia Qualified Code(s): J96.21 - Acute and chronic respiratory failure with hypoxia; J96.22 - Acute and chronic respiratory failure with hypercapnia Category: Medical Code(s): J96.90 - Respiratory failure, unspecified, unspecified whether with hypoxia or hypercapnia (3) Severe sepsis Current visit: Yes Status: Acute Category: Medical Code(s): A41.9 - Sepsis, unspecified organism; R65.20 - Severe sepsis without septic shock (4) Acute and chronic respiratory failure ([id number]) Current visit: No Status: Acute Category: Medical Code(s): J96.20 - Acute and chronic respiratory failure, unspecified whether with hypoxia or hypercapnia (5) Acute respiratory acidosis Current visit: No Status: Acute Category: Medical Code(s): E87.2 - Acidosis (6) Altered mental status Current visit: No Status: Acute Qualifiers: Altered mental status type: delirium Qualified Code(s): R41.0 - Disorientation, unspecified Category: Medical Code(s): R41.82 - Altered mental status, unspecified (7) Diabetes mellitus Current visit: No Status: Chronic Qualifiers: Diabetes mellitus type: type 2 Diabetes mellitus mcc insulin use: with termite exterminator helper use Diabetes mellitus complication status: with circulatory complication Diabetes mellitus complication detail: with other circulatory complications Qualified Code(s): E11.59 - Type 2 diabetes mellitus with other circulatory complications; Z79.4 - middle or intermediate school principal (current) use of insulin Category: Medical Code(s): E11.9 - Type 2 diabetes mellitus without complications (8) Obesity (BMI 30.0-34.9) Current visit: No Status: Chronic Category: Medical Code(s): E66.9 - Obesity, unspecified (9) Morbid obesity with alveolar hypoventilation Current visit: Yes Status: Acute Category: Medical Code(s): E66.2 - Morbid (severe) obesity with alveolar hypoventilation The patient's infection will respond to the chosen ABx?: Yes Is the patient receiving the right drug, dose, and route?: Yes Could a more targeted ABx be ordered?: No (PATIENT AFEBRILE AT THIS TIME. CONTINUE ABX.)
--- NOTE | 2019-04-23 15:32 | Electrocardiograph Report ---
APPROVED REPORT Exam: Resting ECG HR:111 bpm ECG Measurements Heart Rate 111 AXES MS 144 P 72 QRSd 90 QRS 45 QT 336 T41 QTc 456 <Conclusion> Sinus tachycardia Low voltage QRS Borderline ECG Electronically signed by : Saturnino Farmer, 04/23/2019 15:32:32
[2019-04-24 06:39] LABS: Eosinophils % 0.3 % (0.1-12.0); Hematocrit 36.2 % (37.0-47.0); Lymphocytes # 0.4 K/mm3 (0.7-4.5); Lymphocytes % 6.1 % (10-50); Mean Corpuscular HGB Conc 30.3 g/dL (31.8-35.4); Mean Corpuscular Volume 93.6 fl (81-99); Mean Platelet Volume 8.1 fl (7.4-10.4); Monocytes # 0.2 K/mm3 (0.1-1.0); Monocytes % 3.1 % (1.7-9.3); Neutrophils # 5.2 K/mm3 (1.8-7.8); Neutrophils % 90.4 % (37.0-80.0); Platelet Count 123 K/mm3 (142-424); Red Blood Count 3.86 M/mm3 (4.20-5.40); Red Cell Distribution Width 14.1 % (11.5-17.5); White Blood Count 5.7 K/mm3 (4.8-10.8)
[2019-04-24 06:45] LABS: Anion Gap 8.1 mEq/L (5-15)
[2019-04-24 07:15] LABS: Calcium 6.6 mg/dL (8.5-10.1)
[2019-04-24 08:06] LABS: Lymphocytes % 6 % (10-50); Monocytes % 5 % (2-9); Neutrophils % 89 % (42-76); Total Cells Counted 100
[2019-04-24 08:07] LABS: RBC Morphology Normal
--- NOTE | 2019-04-24 09:21 | Progress Note ---
Internal Medicine - PN: Subj *Date: 04/24/19 *Time: 09:18 Interval history: pt sitting up in chair requesting to have mask removed and her nc back. pt states she refuses to wear trilogy states she feels it eve her. pt states she now can feel her legs and thinks she could walk. Exam Vital signs and Labs for Last 24 Hours: Temp Pulse Resp BP Pulse Ox 98.0 F 72 24 139/70 94 L 04/24/19 04:00 04/24/19 06:12 04/24/19 04:00 04/24/19 04:00 04/24/19 06:12 Laboratory Results - last 24 hr 04/23/19 05:35: Total Counted 100, Neutrophils % (Manual) 96 H, Monocytes % (Manual) 4, Platelet Estimate Slight increase, RBC Morphology Normal 04/23/19 11:21: POC Glucose 207 H 04/23/19 17:19: POC Glucose 186 H 04/23/19 20:42: POC Glucose 195 H 04/24/19 06:16: POC Glucose 186 H 04/24/19 06:25: WBC 5.7, RBC 3.86 L, Hgb 11.0 L, Hct 36.2 L, MCV 93.6, MCH 28.3, MCHC 30.3 L, RDW 14.1, Plt Count 123 L, MPV 8.1, Neut % (Auto) 90.4 H, Lymph % (Auto) 6.1 L, [place] % (Auto) 3.1, Eos % (Auto) 0.3, Baso % (Auto) 0.0 L, Neut # (Auto) 5.2, Lymph # (Auto) 0.4 L, [place] # (Auto) 0.2, Eos # (Auto) 0.0, Baso # (Auto) 0.0, Total Counted 100, Neutrophils % (Manual) 89 H, Lymphocytes % (Manual) 6 L, Monocytes % (Manual) 5, Platelet Estimate Slight increase, RBC Morphology Normal 04/24/19 06:25: Sodium 147 H, Potassium 3.1 L, Chloride 109 H, Carbon Dioxide 33 H, Anion Gap 8.1, BUN 10, Creatinine 0.51 L, Estimated Creat Clear 69, Estimated GFR 120, Est GFR ( Amer) 145, Glucose 208 H, Calcium 6.6 L I & O for Last 24 hours: Intake & Output 04/21/19 04/22/19 04/23/19 04/24/19 11:59 11:59 11:59 11:59 Intake Total 4160 / 4392 4337 / 4337 5364 / 5364 4548 / 4548 Output Total 189 / 1955 3250 / 3250 6900 / 6900 3150 / 3150 Balance 2265 / 2437 1087 / 1087 -1536 / -1536 1398 / 1398 Weight 174 lb 8.004 oz 177 lb 1.6 oz 181 lb 4.8 oz 179 lb 4 oz Microbiology Reports for the Last 24 Hours: Microbiology 04/20/19 16:00 Rectum Miscellaneous Reference Culture - Preliminary 04/20/19 14:42 Sputum - Expectorated Sputum Gram Stain - Final 04/20/19 14:42 Sputum - Expectorated Sputum Sputum Culture - Final Normal Respiratory May - Constitutional no acute distress, chronically ill appearing - *Routine HEENT Exam Head: Present: normocephalic Eye: Present: PERRL ENT: Present: mucous membranes moist - *Routine Neck Exam Present: supple, full ROM. Absent: lymphadenopathy - *Routine Respiratory Exam Present: wheezes - *Routine Cardiovascular Exam Present: RRR - *Routine Abdominal Exam Present: soft, normoactive bowel sounds. Absent: tenderness - *Routine Extremities Exam Present: full ROM, normal capillary refill. Absent: cyanosis, clubbing, edema - *Routine Skin Exam Present: warm. Absent: rash - *Routine Neurological Exam Present: alert, oriented X3 - Routine Psychiatric Exam Present: normal affect Assessment and Plan (1) COPD exacerbation Current visit: Yes Status: Acute Category: Medical Code(s): J44.1 - Chronic obstructive pulmonary disease with (acute) exacerbation (2) Respiratory failure Current visit: Yes Status: Acute Qualifiers: Chronicity: acute on chronic Respiratory failure complication: hypoxia and hypercapnia Qualified Code(s): J96.21 - Acute and chronic respiratory failure with hypoxia; J96.22 - Acute and chronic respiratory failure with hypercapnia Category: Medical Code(s): J96.90 - Respiratory failure, unspecified, unspecified whether with hypoxia or hypercapnia (3) Severe sepsis Current visit: Yes Status: Acute Category: Medical Code(s): A41.9 - Sepsis, unspecified organism; R65.20 - Severe sepsis without septic shock (4) Acute and chronic respiratory failure ([id number]) Current visit: No Status: Acute Category: Medical Code(s): J96.20 - Acute and chronic respiratory failure, unspecified whether with hypoxia or hypercapnia (5) Acute respiratory acidosis Current visit: No Status: Acute Category: Medical Code(s): E87.2 - Acidosis (6) Altered mental status Current visit: No Status: Acute Qualifiers: Altered mental status type: delirium Qualified Code(s): R41.0 - Disorientation, unspecified Category: Medical Code(s): R41.82 - Altered mental status, unspecified (7) Diabetes mellitus Current visit: No Status: Chronic Qualifiers: Diabetes mellitus type: type 2 Diabetes mellitus intermediate designer insulin use: with half-way use Diabetes mellitus complication status: with circulatory complication Diabetes mellitus complication detail: with other circulatory complications Qualified Code(s): E11.59 - Type 2 diabetes mellitus with other circulatory complications; Z79.4 - penitentiary (current) use of insulin Category: Medical Code(s): E11.9 - Type 2 diabetes mellitus without complications (8) Obesity (BMI 30.0-34.9) Current visit: No Status: Chronic Category: Medical Code(s): E66.9 - Obesity, unspecified (9) Morbid obesity with alveolar hypoventilation Current visit: Yes Status: Acute Category: Medical Code(s): E66.2 - Morbid (severe) obesity with alveolar hypoventilation - Assessment and plan all Dx Assessment and Plan for all problems:: dr ma to see pt later Change to nc 2.5 liters pt consult
--- NOTE | 2019-04-24 09:36 | Consult Report ---
*Admission Date: 04/20/19 *Reason for consult:: Acute and chronic respiratory failure *History of present illness: 69-year-old female acute on chronic respiratory failure was intubated and then extubated on Saturday. She remains in the ICU. She is sitting up in a chair and breathing well without the use of accessory muscles. She is able to speak easily. She is confused and does not seem to be aware that she just got off a ventilator. History of COPD and is on oxygen at 2 liters per nc 08/10. Per nurs ing home staff the patient was altered and drowsy [facility] History I have reviewed the patient's past medical history: Yes Medical History: Reports:: Anxiety, Congestive Heart Failure, Chronic Obstructive Pulmonary Disease (COPD), Diabetes Mellitus Type 2, Hyperlipidemia, Hypertension Denies:: Cancer, Diabetes Mellitus Type 1, Internal Pacemaker, MRSA *Have you ever received a pneumonia vaccine?: Yes *Have you received a flu vaccine this season?: Yes Other Medical History: Reports: Arthritis, Sinus Problems Other Surgeries: Yes: Colonoscopy, . No: Pacemaker Amputation: No Fractures: No - *Social History Smoking Status: Unknown if ever smoked Tobacco Type: cigarettes # Packs/Day (cigarettes): 1 #Yrs smoked (if former smoker): 1 Alcohol Intake: never Alcohol Intake Frequency:: 3 or more drinks per day Substance Use Type: denies use *Occupational Status:: retired Housing: custodial Household Members: other *Travel in the last 8 weeks: None - Psychiatric History Pschychiatric History:: Reports:: Anxiety, Bipolar Disorder Family Hx:: Unable to obtain Review of Systems - Review of Systems Review of systems:: pertinent systems reviewed and negative unless documented below - *Respiratory Reports cough, Reports shortness of breath - *Neurologic Denies dizziness Meds Home Medications Medication Instructions Recorded Confirmed Type Calcium Carbonate [Tums 500mg 1,000 mg PO QIDP PRN 07/01/18 04/20/19 History chewtab] Quetiapine Fumarate [Seroquel 25mg 25 mg PO BID 07/01/18 04/20/19 History tablet] Morphine Sulfate [Roxanol 20mg/mL 0.25 ml PO Q4HP PRN 07/02/18 04/20/19 History 1mL oral solution UDC] Budesonide/Formoterol Fumarate 2 puffs IH BID 12/17/18 04/20/19 History [Symbicort 160-4.5 Mcg Inhaler] Gabapentin [Gabapentin 100mg Cap] 100 mg PO TID 12/17/18 04/20/19 History Acetaminophen [Acetaminophen Extra 500 mg PO Q4HP PRN 12/18/18 04/20/19 History Strength] lidocaine 4 % topical patch 1 patch TOPICAL DAILYP PRN 12/24/18 04/20/19 History famotidine 20 mg tablet 20 mg PO DAILY 02/06/19 04/20/19 History Alendronate Sodium [Fosamax 70mg 70 mg PO WEEKLY 04/13/19 04/20/19 History Tablet] Metformin HCl [Metformin ER 500 mg PO DAILY 04/13/19 04/20/19 History Osmotic] Spironolactone [Spironolactone 25 mg PO BID 04/13/19 04/20/19 History 25mg Tablet] Calcium Carbonate [Calcium] 600 mg PO BID 04/20/19 04/20/19 History Cholecalciferol (Vitamin D3) 400 unit PO BID 04/20/19 04/20/19 History [Vitamin D3] Ondansetron [Zofran 4mg ODT] 4 mg PO Q8HP PRN 04/20/19 04/20/19 History Allergies Allergy/AdvReac Type Severity Reaction Status Date / Time orange juice Allergy Mild Rash Verified 04/06/19 11:14 Exam Vital signs and Labs for Last 24 Hours: Temp Pulse Resp BP Pulse Ox 97.9 F 71 20 116/92 H 92 L 04/24/19 08:00 04/24/19 08:00 04/24/19 08:00 04/24/19 08:00 04/24/19 08:00 Laboratory Results - last 24 hr 04/23/19 05:35: Total Counted 100, Neutrophils % (Manual) 96 H, Monocytes % (Manual) 4, Platelet Estimate Slight increase, RBC Morphology Normal 04/23/19 11:21: POC Glucose 207 H 04/23/19 17:19: POC Glucose 186 H 04/23/19 20:42: POC Glucose 195 H 04/24/19 06:16: POC Glucose 186 H 04/24/19 06:25: WBC 5.7, RBC 3.86 L, Hgb 11.0 L, Hct 36.2 L, MCV 93.6, MCH 28.3, MCHC 30.3 L, RDW 14.1, Plt Count 123 L, MPV 8.1, Neut % (Auto) 90.4 H, Lymph % (Auto) 6.1 L, [place] % (Auto) 3.1, Eos % (Auto) 0.3, Baso % (Auto) 0.0 L, Neut # (Auto) 5.2, Lymph # (Auto) 0.4 L, [place] # (Auto) 0.2, Eos # (Auto) 0.0, Baso # (Auto) 0.0, Total Counted 100, Neutrophils % (Manual) 89 H, Lymphocytes % (Manual) 6 L, Monocytes % (Manual) 5, Platelet Estimate Slight increase, RBC Morphology Normal 04/24/19 06:25: Sodium 147 H, Potassium 3.1 L, Chloride 109 H, Carbon Dioxide 33 H, Anion Gap 8.1, BUN 10, Creatinine 0.51 L, Estimated Creat Clear 69, Estimated GFR 120, Est GFR ( Amer) 145, Glucose 208 H, Calcium 6.6 L I & O for Last 24 hours: Intake & Output 04/21/19 04/22/19 04/23/19 04/24/19 23:59 23:59 23:59 23:59 Intake Total 4600 / 4848 4933 / 4933 5735 / 5735 1545 / 1545 Output Total 3500 / 3675 4325 / 4325 5750 / 5750 600 / 600 Balance 1100 / 1173 608 / 608 -15 / -15 945 / 945 Weight 174 lb 8.004 oz 177 lb 1.6 oz 181 lb 4.8 oz 179 lb 3.985 oz Microbiology Reports for the Last 24 Hours: Microbiology 04/20/19 16:00 Rectum Miscellaneous Reference Culture - Preliminary 04/20/19 14:42 Sputum - Expectorated Sputum Gram Stain - Final 04/20/19 14:42 Sputum - Expectorated Sputum Sputum Culture - Final Normal Respiratory May - Constitutional mild distress, average body habitus, chronically ill appearing - *Routine HEENT Exam Head: Present: normocephalic Eye: Present: EOMI, PERRL ENT: Present: mucous membranes moist - *Routine Neck Exam Present: supple. Absent: lymphadenopathy - *Routine Respiratory Exam Present: decreased breath sounds, prolonged expiratory phase, wheezes. Absent: accessory muscle use, patient mechanically ventilated - *Routine Cardiovascular Exam Present: RRR - *Routine Abdominal Exam Present: soft, normoactive bowel sounds. Absent: tenderness - *Routine Extremities Exam Absent: cyanosis, clubbing, edema - *Routine Skin Exam Present: warm. Absent: rash - *Routine Neurological Exam Present: alert, oriented X3 Internal Medicine - CN: Reslt - Labs CBC & Chem 7: 04/24/19 06:25 04/24/19 06:25 Labs: Short CBC 04/24/19 Range/Units 06:25 WBC 5.7 (4.8-10.8) K/mm3 Hgb 11.0 L (12.2-16.2) g/dL Hct 36.2 L (37.0-47.0) % Plt Count 123 L (142-424) K/mm3 BMP 04/24/19 06:25 Sodium 147 H Potassium 3.1 L Chloride 109 H Carbon Dioxide 33 H BUN 10 Creatinine 0.51 L Glucose 208 H Calcium 6.6 L - ABG Interpretation ABG results: 04/20/19 04/20/19 04/20/19 09:22 11:30 13:54 ABG pH 7.30 L 7.18 L* 7.19 L* ABG pCO2 72.1 H 129.8 H 124.3 H ABG pO2 57.0 L 65.7 L 56.9 L ABG HCO3 34.3 H 47.7 H 46.2 H ABG Total CO2 36.5 H 51.7 H 50.0 H ABG O2 Saturation 89 L 91 87 L* ABG Base Excess 7.8 H 19.4 H 18.0 H 04/20/19 04/21/19 04/21/19 15:11 06:00 14:20 ABG pH 7.33 L 7.46 H 7.38 ABG pCO2 76.0 H 48.0 H 56.8 H ABG pO2 132.7 H 83.8 68.1 L ABG HCO3 39.3 H 33.6 H 32.5 H ABG Total CO2 41.6 H 35.1 H 34.2 H ABG O2 Saturation 99 97 93 ABG Base Excess 13.3 H 9.8 H 7.3 H Additional comments: . Patchy left basilar infiltrate with chronic opacity in the right apex Assessment and Plan (1) COPD exacerbation Current visit: Yes Status: Acute Category: Medical Code(s): J44.1 - Chronic obstructive pulmonary disease with (acute) exacerbation Patient has responded to nebulizers and steroids. Patient is successfully weaned from the ventilator. Patient needs to wear her trilogy at night. She is resistant to doing so. Eventually the patient would benefit from going to SNF (2) Respiratory failure Current visit: Yes Status: Acute Qualifiers: Chronicity: acute on chronic Respiratory failure complication: hypoxia and hypercapnia Qualified Code(s): J96.21 - Acute and chronic respiratory failure with hypoxia; J96.22 - Acute and chronic respiratory failure with hypercapnia Category: Medical Code(s): J96.90 - Respiratory failure, unspecified, unspecified whether with hypoxia or hypercapnia (3) Severe sepsis Current visit: Yes Status: Acute Category: Medical Code(s): A41.9 - Sepsis, unspecified organism; R65.20 - Severe sepsis without septic shock Has responded to therapy and is no longer septic (4) Acute and chronic respiratory failure (print-[id number]) Current visit: No Status: Acute Category: Medical Code(s): J96.20 - Acute and chronic respiratory failure, unspecified whether with hypoxia or hypercapnia (5) Acute respiratory acidosis Current visit: No Status: Acute Category: Medical Code(s): E87.2 - Acidosis (6) Altered mental status Current visit: No Status: Acute Qualifiers: Altered mental status type: delirium Qualified Code(s): R41.0 - Disorientation, unspecified Category: Medical Code(s): R41.82 - Altered mental status, unspecified Patient remains somewhat confused (7) Diabetes mellitus Current visit: No Status: Chronic Qualifiers: Diabetes mellitus type: type 2 Diabetes mellitus correction insulin use: with salvage determiner use Diabetes mellitus complication status: with circulatory complication Diabetes mellitus complication detail: with other circulatory complications Qualified Code(s): E11.59 - Type 2 diabetes mellitus with other circulatory complications; Z79.4 - termite treater helper (current) use of insulin Category: Medical Code(s): E11.9 - Type 2 diabetes mellitus without complications (8) Obesity (BMI 30.0-34.9) Current visit: No Status: Chronic Category: Medical Code(s): E66.9 - Obesity, unspecified (9) Morbid obesity with alveolar hypoventilation Current visit: Yes Status: Acute Category: Medical Code(s): E66.2 - Morbid (severe) obesity with alveolar hypoventilation
--- NOTE | 2019-04-25 07:54 | Discharge Summary ---
General - General Admission date:: 04/20/19 Discharge date: 04/25/19 HPI HPI: 69-year-old female presents with complaints of shortness of breath and altered mental status since early this morning. History of COPD and is on oxygen at 2 liters per nc 08/10. Per prison staff the patient was altered and drowsy this morning, coughing and her oxygen saturation was low. Pt us unable to talk due to being on bipap, does open eyes when spoke to. pt admitted for copd ex and hypoxia. Hospital Course Hospital Course: Patient was admitted to intensive care unit. Eventually progressed to intubation because of hypoxia/hypercapnia with respiratory failure, acute on chronic. She was able to be weaned off the ventilator over the next couple of days. Sputum, rectal cultures for CRE and blood cultures were nondiagnostic. Patient was placed on Levaquin and Zosyn for coverage of prison acquired pneumonia with COPD exacerbation. She was able to be extubated and transferred to the floor and continued to progress nicely. This morning she is back to her baseline. Eating well. Complains of some diarrhea but otherwise is able to move about and do most of her ADLs. She does not wish to go back to her prison because "everyone is sick there." However, she has reached maximal medical improvement in the hospital, I will discharge her on Levaquin and Augmentin. She will need labs on Saturday, CBC and BMP to follow her relatively low potassium levels. I will place her on prednisone for COPD issue she will need to continue her regular nebulizer treatments. Overall prognosis is extremely poor because of her end-stage COPD. Objective Vital signs: Temp Pulse Resp BP Pulse Ox 98.0 F 100 H 18 116/97 H 91 L 04/25/19 04:00 04/25/19 06:23 04/25/19 04:00 04/25/19 04:00 04/25/19 06:23 Narrative: Patient has tangential thinking and flight of ideas which is her baseline psychiatric exam. Lungs have rhonchi, minimal crackles. However good air movement. No expiratory wheezing. Heart rate regular. Mucous membranes moist. Skin turgor is good. She is able to move all extremities well but is very globally weak. No skin rash. Abdomen soft nontender. Results Labs on day of discharge: Labs from last 24 hours 04/25/19 04/24/19 04/24/19 06:00 20:39 16:16 Total Counted Neutrophils % (Manual) Lymphocytes % (Manual) Monocytes % (Manual) Platelet Estimate RBC Morphology POC Glucose 187 H 256 H 197 H 04/24/19 04/24/19 11:50 06:25 Total Counted 100 Neutrophils % (Manual) 89 H Lymphocytes % (Manual) 6 L Monocytes % (Manual) 5 Platelet Estimate Slight increase RBC Morphology Normal POC Glucose 227 H Preliminary micro results at discharge 04/20/19 16:00 Miscellaneous Reference Culture - Preliminary Rectum 04/20/19 16:00 Miscellaneous Reference Culture - Preliminary Nose - Right 04/20/19 09:25 Blood Culture - Preliminary Blood NO GROWTH AFTER 48 HOURS 04/20/19 09:25 Blood Culture - Preliminary Blood NO GROWTH AFTER 48 HOURS DS: Diagnosis - Discharge Diagnosis (1) COPD exacerbation Status: Acute (2) Respiratory failure Status: Resolved (3) Severe sepsis Status: Resolved (4) Acute and chronic respiratory failure ([id number]) Status: Acute (5) Acute respiratory acidosis Status: Acute (6) Altered mental status Status: Acute (7) Diabetes mellitus Status: Chronic (8) Obesity (BMI 30.0-34.9) Status: Chronic (9) Morbid obesity with alveolar hypoventilation Status: Acute Discharge Plan - Patient Discharge Instructions ACTIVITY: Continue current activity DIET: continue same diet Patient Instructions: Pneumonia-Adult, Dehydration, Chronic Obstructive Pulmonary Disease, DI for Chronic Obstructive Pulmonary Disease, DI for Dehydration -- Adult, DI for Pneumonia -- Adult, DI for Respiratory Failure, Respiratory Failure - Follow up Plan Follow up with: Tracey Duran APRN [Advanced Practice Nurse] - Disposition: [facility] Home Medications: Home Medications Medication Instructions Recorded Confirmed Type Calcium Carbonate [Tums 500mg 1,000 mg PO QIDP PRN 07/01/18 04/20/19 History chewtab] Quetiapine Fumarate [Seroquel 25mg 25 mg PO BID 07/01/18 04/20/19 History tablet] Morphine Sulfate [Roxanol 20mg/mL 0.25 ml PO Q4HP PRN 07/02/18 04/20/19 History 1mL oral solution UDC] Budesonide/Formoterol Fumarate 2 puffs IH BID 12/17/18 04/20/19 History [Symbicort 160-4.5 Mcg Inhaler] Gabapentin [Gabapentin 100mg Cap] 100 mg PO TID 12/17/18 04/20/19 History Acetaminophen [Acetaminophen Extra 500 mg PO Q4HP PRN 12/18/18 04/20/19 History Strength] lidocaine 4 % topical patch 1 patch TOPICAL DAILYP PRN 12/24/18 04/20/19 History famotidine 20 mg tablet 20 mg PO DAILY 02/06/19 04/20/19 History Alendronate Sodium [Fosamax 70mg 70 mg PO WEEKLY 04/13/19 04/20/19 History Tablet] Metformin HCl [Metformin ER 500 mg PO DAILY 04/13/19 04/20/19 History Osmotic] Spironolactone [Spironolactone 25 mg PO BID 04/13/19 04/20/19 History 25mg Tablet] Calcium Carbonate [Calcium] 600 mg PO BID 04/20/19 04/20/19 History Cholecalciferol (Vitamin D3) 400 unit PO BID 04/20/19 04/20/19 History [Vitamin D3] Ondansetron [Zofran 4mg ODT] 4 mg PO Q8HP PRN 04/20/19 04/20/19 History Amoxicillin/Potassium Clav 1 tab PO Q12H #14 tab 04/25/19 Rx [Augmentin 875-125 Tablet] levoFLOXacin [Levaquin 500mg 500 mg PO DAILY #7 tab 04/25/19 Rx tab] predniSONE [Deltasone 20mg 20 mg PO BID 7 Days #14 tab 04/25/19 Rx tablet] Prescriptions/Medication Reconciliation: New Amoxicillin/Potassium Clav [Augmentin 875-125 Tablet] 1 tab PO Q12H #14 tab levoFLOXacin [Levaquin 500mg tab] 500 mg PO DAILY #7 tab predniSONE [Deltasone 20mg tablet] 20 mg PO BID 7 Days #14 tab Continued lidocaine 4 % topical patch 1 patch TOPICAL DAILYP PRN PRN Reason: back pain famotidine 20 mg tablet 20 mg PO DAILY Quetiapine Fumarate [Seroquel 25mg tablet] 25 mg PO BID Calcium Carbonate [Tums 500mg chewtab] 1,000 mg PO QIDP PRN PRN Reason: Heartburn Morphine Sulfate [Roxanol 20mg/mL 1mL oral solution UDC] 0.25 ml PO Q4HP PRN PRN Reason: PAIN Gabapentin [Gabapentin 100mg Cap] 100 mg PO TID Alendronate Sodium [Fosamax 70mg Tablet] 70 mg PO WEEKLY Calcium Carbonate [Calcium] 600 mg PO BID Ondansetron [Zofran 4mg ODT] 4 mg PO Q8HP PRN PRN Reason: Nausea Budesonide/Formoterol Fumarate [Symbicort 160-4.5 Mcg Inhaler] 2 puffs IH BID Acetaminophen [Acetaminophen Extra Strength] 500 mg PO Q4HP PRN PRN Reason: PAIN Spironolactone [Spironolactone 25mg Tablet] 25 mg PO BID Metformin HCl [Metformin ER Osmotic] 500 mg PO DAILY Cholecalciferol (Vitamin D3) [Vitamin D3] 400 unit PO BID - Problem Reconciliation Problems Reviewed?: Yes
[2019-04-25 09:30] LABS: Basophils % 0.2 % (0.1-2.0); Eosinophils % 0.1 % (0.1-12.0); Hematocrit 36.7 % (37.0-47.0); Hemoglobin 11.1 g/dL (12.2-16.2); Lymphocytes # 0.4 K/mm3 (0.7-4.5); Lymphocytes % 4.5 % (10-50); Mean Corpuscular HGB Conc 30.2 g/dL (31.8-35.4); Mean Corpuscular Volume 94.5 fl (81-99); Mean Platelet Volume 8.3 fl (7.4-10.4); Monocytes # 0.3 K/mm3 (0.1-1.0); Monocytes % 3.6 % (1.7-9.3); Neutrophils # 7.4 K/mm3 (1.8-7.8); Neutrophils % 91.6 % (37.0-80.0); Platelet Count 130 K/mm3 (142-424); Red Blood Count 3.89 M/mm3 (4.20-5.40); Red Cell Distribution Width 14.3 % (11.5-17.5)
[2019-04-25 09:36] LABS: Anion Gap 6.8 mEq/L (5-15); Calcium 7.2 mg/dL (8.5-10.1)
[2019-04-25 11:57] LABS: Lymphocytes % 7 % (10-50); Monocytes % 2 % (2-9); Neutrophils % 91 % (42-76); Total Cells Counted 100
[2019-04-25 11:58] LABS: Hypochromasia 1+
== END 2019-04-25 10:17 | DRG 208 ==
LOC: ER 09:14 → 2ND 09:14 → OBSVTOIN 11:27 → 2ND 11:28 → ICU 14:25 → 2ND 04-23 16:02
PROVIDERS: ADMIT Emergency Medicine; ATTEND Emergency Medicine
CPT/HCPCS: 36415; 71010; 71045; 80048; 80053; 81001; 82803; 82962; 83605; 84484; 85007; 85025; 87040; 87070; 87186; 87205; 87275; 87276; 93005; 94002; 94640; 94660; 94761; 96365; 96367; 96375; 99285; J0330; J1956; J2405; J2543; J2704

== ENCOUNTER 2019-04-26 14:58 | Inpatient (IN) ==
[2019-04-26 15:36] LABS: ABG Base Excess 11.8 mmol/L (-2.4-2.3); ABG Oxygen Saturation 92 % (90-100); ABG PH 7.25 mmol/L (7.35-7.45); ABG PO2 69.4 mmhg (80-100); ABG TCO2 41.8 mmhg (23-27)
[2019-04-26 15:37] LABS: Oxygen 100 %
[2019-04-26 15:38] LABS: ABG PCO2 90.6 mmhg (35.0-45.0)
[2019-04-26 15:40] LABS: Basophils % 0.3 % (0.1-2.0); Eosinophils % 0.3 % (0.1-12.0); Hematocrit 42.7 % (37.0-47.0); Hemoglobin 12.8 g/dL (12.2-16.2); Lymphocytes # 0.7 K/mm3 (0.7-4.5); Lymphocytes % 7.4 % (10-50); Mean Corpuscular Volume 93.4 fl (81-99); Mean Platelet Volume 7.7 fl (7.4-10.4); Microscopic, Urine URINE MICROSCOPIC (MICROSCOPIC); Monocytes # 0.3 K/mm3 (0.1-1.0); Monocytes % 2.5 % (1.7-9.3); Neutrophils # 8.9 K/mm3 (1.8-7.8); Neutrophils % 89.5 % (37.0-80.0); Platelet Count 150 K/mm3 (142-424); Red Blood Count 4.58 M/mm3 (4.20-5.40); Red Cell Distribution Width 13.9 % (11.5-17.5)
[2019-04-26 15:45] LABS: Appearance,Urine CLEAR (Clear); Bilirubin,Urine Negative (Negative); Blood, Urine Negative (Negative); Color,Urine YELLOW (Yellow); Glucose,Urine (UA) 2+ (Negative); Ketones,Urine Negative (Negative); Leukocyte Esterase,Urine Negative (Negative); Protein,Urine Negative (Negative); Specific Gravity, Urine 1.015 (1.005-1.030); Urobilinogen,Urine 0.2 EU/dl (0.2)
[2019-04-26 15:48] LABS: Albumin Level 2.3 gm/dL (3.4-5.0); Albumin/Globulin Ratio 0.6 (1.1-1.8); Anion Gap 8.7 mEq/L (5-15); Bilirubin,Total 0.5 mg/dL (0.2-1.0); Globulin 4.1 gm/dl (1.3-3.2); Total Protein,Serum 6.4 gm/dL (6.4-8.2)
[2019-04-26 15:51] LABS: Calcium 9.1 mg/dL (8.5-10.1)
[2019-04-26 15:54] LABS: Hypochromasia 1+; Lymphocytes % 8 % (10-50); Monocytes % 5 % (2-9); Neutrophils % 87 % (42-76); Stomatocytes 1+; Total Cells Counted 100
[2019-04-26 15:56] LABS: RBC,Urine Occasional #/hpf (0-3); Squamous Epithelial Cell,Urine Occasional #/hpf (0-5)
[2019-04-26 16:13] LABS: ABG Base Excess 10.7 mmol/L (-2.4-2.3); ABG HCO3 37.4 mmhg (22.0-26.0); ABG Oxygen Saturation 92 % (90-100); ABG PH 7.28 mmol/L (7.35-7.45); ABG PO2 68.4 mmhg (80-100); ABG TCO2 39.9 mmhg (23-27)
[2019-04-26 16:14] LABS: Oxygen 65 %
[2019-04-26 16:16] LABS: ABG PCO2 80.7 mmhg (35.0-45.0)
--- NOTE | 2019-04-26 17:31 | Emergency Department Note ---
ED Disposition Clinical Impression: Severe sepsis, Pulmonary infiltrate, Acute exacerbation of chronic obstructive pulmonary disease (COPD) Respiratory failure with hypoxia and hypercapnia Qualifiers: Chronicity: acute Qualified Code(s): J96.01 - Acute respiratory failure with hypoxia; J96.02 - Acute respiratory failure with hypercapnia Opioid overdose Qualifiers: Encounter type: initial encounter Injury intent: accidental or unintentional Qualified Code(s): T40.2X1A - Poisoning by other opioids, accidental (unintentional), initial encounter Disposition: Admitted As Inpatient Condition on Discharge: Serious Referrals: Jarret Dennison MD [Primary Care Provider] - Time of Disposition: 17:49 - Critical Care Critical Care Time: Yes Attestation: On 04/26/19, the high probability of a clinically significant, sudden or life threatening deterioration of the following system(s) required my full and direct attention, intervention and personal management. The time I documented below is in addition to time spent performing reported procedures but includes the following listed in this critical care notation. Total Critical Care Time: 45 Vital system(s) involved:: Respiratory Failure, Shock (Septic) My critical care processes included: Assessment & monitoring of V/S, Initial and Re-exams, Data Review/Interpretation, Coordinating Care, Medication Orders and management, Documentation Medical Decision Making - José Miguel Inquiry Pt receiving controlled substance: Yes José Miguel was queried for this patient: No (long-term patient) Risks and benefits of using a controlled substance: were not discussed with pt by me Vital Signs: 04/26/19 14:58 04/26/19 15:28 04/26/19 17:00 Temperature 97.6 F 97.7 F Temperature Source Rectal Oral Pulse Rate [Right Radial] 114 H 105 H 92 H Respiratory Rate 30 H 18 Blood Pressure [Right Arm] 158/69 H 146/71 H 141/62 H Blood Pressure Mean [Right Arm] 98 96 88 Blood Pressure Source [Right Arm] Automatic Cuff Automatic Cuff Automatic Cuff Blood Pressure Position [Right Arm] Sitting Supine Sitting 02 Sat by Pulse Oximetry 86 L 90 L 91 L Oxygen Delivery Method Nasal Cannula BiPAP Oxygen Flow Rate (LPM) 6 - Lab Data Lab results reviewed: Yes: I reviewed the patient's lab results. Lab Results 04/26/19 15:03: Urine Color Yellow, Urine Appearance Clear, Urine pH 7.0, Ur Specific [place] 1.015, Urine Protein Negative, Urine Glucose (UA) 2+, Urine Ketones Negative, Urine Blood Negative, Urine Nitrate Negative, Urine Bilirubin Negative, Urine Urobilinogen 0.2, Ur Leukocyte Esterase Negative, Urine RBC Occasional, Urine WBC None, Ur Squamous Epith Cells Occasional, Urine Bacteria None 04/26/19 15:03: WBC 10.0, RBC 4.58, Hgb 12.8, Hct 42.7, MCV 93.4, MCH 28.0, MCHC 30.0 L, RDW 13.9, Plt Count 150, MPV 7.7, Neut % (Auto) 89.5 H, Lymph % (Auto) 7.4 L, [place] % (Auto) 2.5, Eos % (Auto) 0.3, Baso % (Auto) 0.3, Neut # (Auto) 8.9 H, Lymph # (Auto) 0.7, [place] # (Auto) 0.3, Eos # (Auto) 0.0, Baso # (Auto) 0.0, T otal Counted 100, Neutrophils % (Manual) 87 H, Lymphocytes % (Manual) 8 L, Monocytes % (Manual) 5, Platelet Estimate Normal, Hypochromasia 1+, [place] cytosis 1+, Stomatocytes 1+ 04/26/19 15:03: Sodium 148 H, Potassium 3.7 D, Chloride 103, Carbon Dioxide 40 H, Anion Gap 8.7, BUN 12, Creatinine 0.50 L, Estimated Creat Clear 89, Estimated GFR 123, Est GFR ( Amer) 148, Glucose 197 H, Calcium 9.1 D, Total Bilirubin 0.5, AST 18, ALT 52, Alkaline Phosphatase 68, Total Protein 6.4, Albumin 2.3 L, Globulin 4.1 H, Albumin/Globulin Ratio 0.6 L 04/26/19 15:03: Lactate 0.8 04/26/19 15:11: Influenza Type A Ag Negative, Influenza Type B Ag Negative 04/26/19 15:26: Specimen Source Right radial, O2 % 100, ABG pH 7.25 L, ABG pCO2 90.6 H, ABG pO2 69.4 L, ABG HCO3 39.0 H, ABG Total CO2 41.8 H, ABG O2 Saturation 92, ABG Base Excess 11.8 H, Jaylen Test N/a 04/26/19 16:15: Specimen Source Right radial, O2 % 65, ABG pH 7.28 L, ABG pCO2 80.7 H, ABG pO2 68.4 L, ABG HCO3 37.4 H, ABG Total CO2 39.9 H, ABG O2 Saturation 92, ABG Base Excess 10.7 H, Jaylen Test N/a, Vent Rate 20, Tidal Volume Bipap 18/6 Result diagrams: 04/26/19 15:03 04/26/19 15:03 Orders (Tests/Meds): ED MEDICATIONS Discontinued Medications Generic Name Dose Route Start Last Admin Trade Name Freq PRN Reason Stop Dose Admin Naloxone HCl 2 mg 04/26/19 14:50 04/26/19 14:50 Narcan 2mg/2ml Syringe IV 04/26/19 14:51 2 mg ONCE ONE Administration Naloxone HCl 2 mg 04/26/19 15:25 04/26/19 15:30 Narcan 2mg/2ml Syringe IV 04/26/19 15:26 2 mg ONCE ONE Administration ORDERS Category Date Time Status Blood Culture Stat Micro 04/26/19 15:22 Received - Radiology Data #1 Image(s): Chest Image Reviewed: Yes I have reviewed radiologist's interpretation FINDINGS: The cardiomediastinal silhouette and pulmonary vascularity are within normal limits. The lung [place] are well expanded. There is diffuse ill-defined reticulonodular opacities in the right upper lobe with similar opacities in the bilateral lower lobes all worrisome for diffuse pneumonic infiltrates. There is relative sparing of the left upper lobe. There is no pleural fluid. There monitor lines overlying the chest. IMPRESSION: Diffuse bilateral ill-defined pneumonic infiltrates representing new findings not seen on the recent chest film of 04/21/2019 Dictated by: Dr. Osvaldo Contreras MD 04/26/2019 16:26 - ECG Data Tracing #1 EKG shows a heart rate of 75 bpm, left axis deviation, nonspecific ST-T changes. Multiple artifact. - Physician Consults Physician Consulted: Dr. Farmer Time: 17:35 Reason -: Admission Comment/Response: Discussed with Dr. Farmer, regarding the patient and plan to get the patient admitted to the step-down unit. - Reevaluation(s) Time: 17:00 Reevaluation #1: Patient has been stable and improving in the emergency department. A repeat blood gas seems to be improving. Plan to admit the patient with the same BiPAP setting. Resp/SOB HPI - General Chief Complaint: Shortness of Breath/Dyspnea Stated Complaint: respiratory distress Time Seen by Provider: 04/26/19 15:00 Mode of Arrival: EMS Source of Information: EMS Limitations: No Limitations Description of Symptoms (Recalled from ER Triage Doc. by RN): PT BROUGHT IN BY EMS FROM [facility] FOR RESPIRATORY DISTRESS. PT RESPONSIVE TO PAINFUL STIMULI ONLY. - History of Present Illness 69-year-old female was sent in from [facility] for having acute shortness of breath and patient being unresponsive. Her oxygen saturation was low 80s. Patient is not able to give any history. She is having respiratory distress. MD Complaint: shortness of breath Onset (ago): hour(s) - Related Data Home Medications Medication Instructions Recorded Confirmed Calcium Carbonate [Tums 500mg 1,000 mg PO QIDP PRN 07/01/18 04/26/19 chewtab] Quetiapine Fumarate [Seroquel 25mg 25 mg PO BID 07/01/18 04/26/19 tablet] Morphine Sulfate [Roxanol 20mg/mL 0.25 ml PO Q4HP PRN 07/02/18 04/26/19 1mL oral solution UDC] Budesonide/Formoterol Fumarate 2 puffs IH BID 12/17/18 04/26/19 [Symbicort 160-4.5 Mcg Inhaler] Gabapentin [Gabapentin 100mg Cap] 100 mg PO TID 12/17/18 04/26/19 Acetaminophen [Acetaminophen Extra 500 mg PO Q4HP PRN 12/18/18 04/26/19 Strength] lidocaine 4 % topical patch 1 patch TOPICAL DAILYP PRN 12/24/18 04/26/19 famotidine 20 mg tablet 20 mg PO DAILY 02/06/19 04/26/19 Alendronate Sodium [Fosamax 70mg 70 mg PO WEEKLY 04/13/19 04/26/19 Tablet] Metformin HCl [Metformin ER 500 mg PO DAILY 04/13/19 04/26/19 Osmotic] Spironolactone [Spironolactone 25 mg PO BID 04/13/19 04/26/19 25mg Tablet] Calcium Carbonate [Calcium] 600 mg PO BID 04/20/19 04/26/19 Cholecalciferol (Vitamin D3) 400 unit PO BID 04/20/19 04/26/19 [Vitamin D3] Ondansetron [Zofran 4mg ODT] 4 mg PO Q8HP PRN 04/20/19 04/26/19 Amoxicillin/Potassium Clav 1 tab PO Q12H 04/26/19 04/26/19 [Augmentin 875-125 Tablet] levoFLOXacin [Levaquin 500mg 500 mg PO DAILY 04/26/19 04/26/19 tab] predniSONE [Deltasone 20mg 20 mg PO BID 04/26/19 04/26/19 tablet] Allergies Allergy/AdvReac Type Severity Reaction Status Date / Time orange juice Allergy Mild Rash Verified 04/06/19 11:14 [facility] History - Hepatitis A Screen Drug use history?: No High risk sexual behaviors?: No History of sexually transmitted infection?: No Currently employed?: No Childcare worker?: No Do you have indoor plumbing?: Yes Do you have electricity?: Yes Attestation statement:: This patient has been screened for Hepatitis A risk factors. I have reviewed the patient's past medical history: Yes Medical History: Reports:: Anxiety, Congestive Heart Failure, Chronic Obstructive Pulmonary Disease (COPD), Hyperlipidemia, Hypertension Denies:: Cancer, Diabetes Mellitus Type 1, Diabetes Mellitus Type 2, Internal Pacemaker, MRSA Other Medical History: Reports: Arthritis, Sinus Problems Other Surgeries: Yes: Colonoscopy, . No: Pacemaker Amputation: No Fractures: No - Social History Smoking Status: Never smoker Tobacco Type: cigarettes # Packs/Day (cigarettes): 1 #Yrs smoked (if former smoker): 1 Alcohol Intake: never Alcohol Intake Frequency:: 3 or more drinks per day Substance Use Type: denies use Occupational Status: disabled Housing: [facility] Household Members: other Comment: I took care of her who had COPD and possible cancer. He several years ago now and she has moved from the home they had to an apartment. She has had a homeless woman coming in and out cooking for her intermittently but has no other help from any relatives. She has a puppy at home. - Psychiatric History Pschychiatric History:: Reports:: Anxiety, Bipolar Disorder Family Hx:: Unable to obtain ROS Obtained: Yes unobtainable due to mental condition Physical Exam - General General appearance: lethargic, in distress (Seems to be having distressing respiration. She is taking deep frequent respiration. Is moving her head every time she is trying to breathe.) - Head Head exam: atraumatic, normocephalic, normal inspection - Eye Eye exam: Present: normal appearance, PERRL, EOMI - ENT ENT exam: Present: normal exam, normal oropharynx, mucous membranes moist, normal external ear exam - Neck Neck exam: Present: normal inspection, trachea midline - Chest Chest inspection: Present: normal inspection - Respiratory Respiratory exam: Present: respiratory distress, prolonged expiratory phase, other (Bilateral wheezing with bronchospasm.) - Cardiovascular Cardiovascular exam: Present: regular rate, normal rhythm. Absent: JVD - Abdominal Exam Abdominal exam: Present: soft, normal bowel sounds. Absent: distention, tenderness, guarding - Extremities Exam Extremities exam: Present: normal inspection, normal capillary refill. Absent: calf tenderness - Back Exam Back exam: Present: normal inspection. Absent: tenderness - Neurological Exam Neurological exam: Present: other (Patient is lethargic) - Skin Skin exam: Present: warm
[2019-04-27 03:14] LABS: Basophils % 0.3 % (0.1-2.0); Eosinophils % 0.5 % (0.1-12.0); Lymphocytes # 0.9 K/mm3 (0.7-4.5); Lymphocytes % 15.2 % (10-50); Mean Corpuscular HGB Conc 29.9 g/dL (31.8-35.4); Mean Corpuscular Volume 91.4 fl (81-99); Mean Platelet Volume 7.8 fl (7.4-10.4); Monocytes # 0.2 K/mm3 (0.1-1.0); Neutrophils # 4.5 K/mm3 (1.8-7.8); Platelet Count 128 K/mm3 (142-424); Red Blood Count 4.04 M/mm3 (4.20-5.40); Red Cell Distribution Width 13.9 % (11.5-17.5); White Blood Count 5.7 K/mm3 (4.8-10.8)
[2019-04-27 03:15] LABS: Hemoglobin 11.1 g/dL (12.2-16.2)
[2019-04-27 03:27] LABS: Anion Gap 4.1 mEq/L (5-15); Calcium 8.2 mg/dL (8.5-10.1)
[2019-04-27 06:37] LABS: ABG Base Excess 16.9 mmol/L (-2.4-2.3); ABG HCO3 42.6 mmhg (22.0-26.0); ABG Oxygen Saturation 95 % (90-100); ABG PH 7.34 mmol/L (7.35-7.45); ABG PO2 78.7 mmhg (80-100); ABG TCO2 45.1 mmhg (23-27)
[2019-04-27 06:41] LABS: Allen's Test Patient Unable; Oxygen 55 %
[2019-04-27 06:42] LABS: Tidal Volume 588
[2019-04-27 06:44] LABS: ABG PCO2 80.3 mmhg (35.0-45.0)
--- NOTE | 2019-04-27 07:32 | Pharmacy Consult Notes ---
[facility] Pharmacy VTE Monitoring - Patient Demographics Admission date: 04/26/19 Report Date: 04/27/19 Time: 07:32 Allergies/Adverse Reactions: Patient Allergies orange juice Allergy (Mild, Verified 04/06/19 11:14) Rash Height: 1.73 m Weight: 82.242 kg Patient Problems: Current Active Problems Severe sepsis (Acute) Pulmonary infiltrate (Acute) Respiratory failure with hypoxia and hypercapnia (Acute) Opioid overdose (Acute) COPD exacerbation (Acute) - VTE Risk Labs: VTE Related Lab Results Hgb 11.1 g/dL (12.2-16.2) L D 04/27/19 03:00 Hct 37.0 % (37.0-47.0) 04/27/19 03:00 Plt Count 128 K/mm3 (142-424) L 04/27/19 03:00 BUN 8 mg/dL (7-18) D 04/27/19 03:00 Creatinine 0.50 mg/dL (0.55-1.02) L 04/27/19 03:00 Estimated Creat Clear 89 mL/min (50-200) 04/27/19 03:00 VTE Score: 8 VTE Risk Level: Moderate Risk - Prophylaxis VTE Prophylaxis Ordered?: Yes Types of VTE Prophylaxis: TEDS Knee High Location of Applied Device: Bilateral Lower Extremeties
--- NOTE | 2019-04-27 08:26 | Pharmacy Consult Notes ---
- Pharmacy Consult Date: 04/27/19 Time: 08:24 Referring provider: DR. CARNES Reason for Consult:: VANCOMYCIN DOSING Allergies and ADEs:: Allergies Allergy/AdvReac Type Severity Reaction Status Date / Time orange juice Allergy Mild Rash Verified 04/06/19 11:14 Home Medications:: Home Medications Medication Instructions Recorded Confirmed Type Calcium Carbonate [Tums 500mg 1,000 mg PO QIDP PRN 07/01/18 04/26/19 History chewtab] Quetiapine Fumarate [Seroquel 25mg 25 mg PO BID 07/01/18 04/26/19 History tablet] Morphine Sulfate [Roxanol 20mg/mL 0.25 ml PO Q4HP PRN 07/02/18 04/26/19 History 1mL oral solution UDC] Budesonide/Formoterol Fumarate 2 puffs IH BID 12/17/18 04/26/19 History [Symbicort 160-4.5 Mcg Inhaler] Gabapentin [Gabapentin 100mg Cap] 100 mg PO TID 12/17/18 04/26/19 History Acetaminophen [Acetaminophen Extra 500 mg PO Q4HP PRN 12/18/18 04/26/19 History Strength] lidocaine 4 % topical patch 1 patch TOPICAL DAILYP PRN 12/24/18 04/26/19 History famotidine 20 mg tablet 20 mg PO DAILY 02/06/19 04/26/19 History Alendronate Sodium [Fosamax 70mg 70 mg PO WEEKLY 04/13/19 04/26/19 History Tablet] Metformin HCl [Metformin ER 500 mg PO DAILY 04/13/19 04/26/19 History Osmotic] Spironolactone [Spironolactone 25 mg PO BID 04/13/19 04/26/19 History 25mg Tablet] Calcium Carbonate [Calcium] 600 mg PO BID 04/20/19 04/26/19 History Cholecalciferol (Vitamin D3) 400 unit PO BID 04/20/19 04/26/19 History [Vitamin D3] Ondansetron [Zofran 4mg ODT] 4 mg PO Q8HP PRN 04/20/19 04/26/19 History Amoxicillin/Potassium Clav 1 tab PO Q12H 04/26/19 04/26/19 History [Augmentin 875-125 Tablet] levoFLOXacin [Levaquin 500mg 500 mg PO DAILY 04/26/19 04/26/19 History tab] predniSONE [Deltasone 20mg 20 mg PO BID 04/26/19 04/26/19 History tablet] Height: 1.73 m Weight: 82.242 kg Laboratory Results:: Laboratory Results - last 24 hr 04/26/19 15:03: Urine Color Yellow, Urine Appearance Clear, Urine pH 7.0, Ur Specific [place] 1.015, Urine Protein Negative, Urine Glucose (UA) 2+, Urine Ketones Negative, Urine Blood Negative, Urine Nitrate Negative, Urine Bilirubin Negative, Urine Urobilinogen 0.2, Ur Leukocyte Esterase Negative, Urine RBC Occasional, Urine WBC None, Ur Squamous Epith Cells Occasional, Urine Bacteria None 04/26/19 15:03: WBC 10.0, RBC 4.58, Hgb 12.8, Hct 42.7, MCV 93.4, MCH 28.0, MCHC 30.0 L, RDW 13.9, Plt Count 150, MPV 7.7, Neut % (Auto) 89.5 H, Lymph % (Auto) 7.4 L, [place] % (Auto) 2.5, Eos % (Auto) 0.3, Baso % (Auto) 0.3, Neut # (Auto) 8.9 H, Lymph # (Auto) 0.7, [place] # (Auto) 0.3, Eos # (Auto) 0.0, Baso # (Auto) 0.0, Total Counted 100, Neutrophils % (Manual) 87 H, Lymphocytes % (Manual) 8 L, Monocytes % (Manual) 5, Platelet Estimate Normal, Hypochromasia 1+, Poikilocytosis 1+, Stomatocytes 1+ 04/26/19 15:03: Sodium 148 H, Potassium 3.7 D, Chloride 103, Carbon Dioxide 40 H, Anion Gap 8.7, BUN 12, Creatinine 0.50 L, Estimated Creat Clear 89, Estimated GFR 123, Est GFR ( Amer) 148, Glucose 197 H, Calcium 9.1 D, Total Bilirubin 0.5, AST 18, ALT 52, Alkaline Phosphatase 68, Total Protein 6.4, Albumin 2.3 L, Globulin 4.1 H, Albumin/Globulin Ratio 0.6 L 04/26/19 15:03: Lactate 0.8 04/26/19 15:11: Influenza Type A Ag Negative, Influenza Type B Ag Negative 04/26/19 15:26: Specimen Source Right radial, O2 % 100, ABG pH 7.25 L, ABG pCO2 90.6 H, ABG pO2 69.4 L, ABG HCO3 39.0 H, ABG Total CO2 41.8 H, ABG O2 Saturation 92, ABG Base Excess 11.8 H, Jaylen Test N/a 04/26/19 16:15: Specimen Source Right radial, O2 % 65, ABG pH 7.28 L, ABG pCO2 80.7 H, ABG pO2 68.4 L, ABG HCO3 37.4 H, ABG Total CO2 39.9 H, ABG O2 Saturation 92, ABG Base Excess 10.7 H, Jaylen Test N/a, Vent Rate 20, Tidal Volume Bipap 18/6 04/26/19 20:23: POC Glucose 160 H 04/26/19 21:19: Troponin I 0.07 H 04/27/19 03:00: WBC 5.7 D, RBC 4.04 L, Hgb 11.1 L D, Hct 37.0, MCV 91.4, MCH 27.4, MCHC 29.9 L, RDW 13.9, Plt Count 128 L, MPV 7.8, Neut % (Auto) 80.0, Lymph % (Auto) 15.2, [place] % (Auto) 4.0, Eos % (Auto) 0.5, Baso % (Auto) 0.3, Neut # (Auto) 4.5, Lymph # (Auto) 0.9, [place] # (Auto) 0.2, Eos # (Auto) 0.0, Baso # (Auto) 0.0 04/27/19 03:00: Sodium 149 H, Potassium 3.1 L, Chloride 105, Carbon Dioxide 43 H*, Anion Gap 4.1 L, BUN 8 D, Creatinine 0.50 L, Estimated Creat Clear 89, Estimated GFR 123, Est GFR ( Amer) 148, Glucose 198 H, Calcium 8.2 L, Magnesium 1.6, Troponin I 0.04 04/27/19 05:31: POC Glucose 213 H 04/27/19 06:35: Specimen Source Right brachial, O2 % 55, ABG pH 7.34 L, ABG pCO2 80.3 H, ABG pO2 78.7 L, ABG HCO3 42.6 H, ABG Total CO2 45.1 H, ABG O2 Saturation 95, ABG Base Excess 16.9 H, Jaylen Test Patient unable, Vent Rate 20, Tidal Volume 588 Medical History: Reports:: Anxiety, Congestive Heart Failure, Chronic Obstructive Pulmonary Disease (COPD), Diabetes Mellitus Type 2, Hyperlipidemia, Hypertension Denies:: Cancer, Diabetes Mellitus Type 1, Internal Pacemaker, MRSA Assessment and Plan - Assessment and plan all Dx Assessment and Plan for all problems:: PATIENT RECEIVED VANCOMYCIN 2 GM IN ER OVERNIGHT AT 1827 AND 1500 MG AT 0600 THIS AM. SWITCHING PATIENT TO 1750 MG Q18H AT THIS TIME. WILL OBTAIN TROUGH LEVEL ON 04/28/19 AT 1830 PRIOR TO 4TH DOSE.
--- NOTE | 2019-04-27 09:18 | History & Physical Report ---
*Admission Date: 04/26/19 *Chief complaint: shortness of breath *History of present illness: 69-year-old female was sent in from [facility] for having acute shortness of breath, respiratory distress and patient being unresponsive. Her oxygen saturation was low 80s, is O2 dependent at 2 L per nasal cannula. Patient had just recently admitted for COPD ex. patient was discharged back to [facility] on Saturday on 2 L nasal cannula. Patient did a trial of the trilogy unit but refused to wear it. Patient was admitted for bilateral pneumonia respiratory distress and placed on BiPAP. Patient is unable to give history. [facility] History I have reviewed the patient's past medical history: Yes Medical History: Reports:: Anxiety, Congestive Heart Failure, Chronic Obstructive Pulmonary Disease (COPD), Diabetes Mellitus Type 2, Hyperlipidemia, Hypertension Denies:: Cancer, Diabetes Mellitus Type 1, Internal Pacemaker, MRSA *Have you ever received a pneumonia vaccine?: No (unknown patient unresponsive) *Have you received a flu vaccine this season?: No (unknown patient unresponsive) Other Medical History: Reports: Arthritis, Sinus Problems Other Surgeries: Yes: Colonoscopy, . No: Pacemaker Amputation: No Fractures: No - *Social History Smoking Status: Former smoker Tobacco Type: cigarettes # Packs/Day (cigarettes): 1 #Yrs smoked (if former smoker): 1 Alcohol Intake: never Alcohol Intake Frequency:: 3 or more drinks per day Substance Use Type: denies use *Occupational Status:: disabled Housing: fpc Household Members: other *Travel in the last 8 weeks: None - Psychiatric History Pschychiatric History:: Reports:: Anxiety, Bipolar Disorder Family Hx:: Unable to obtain Review of Systems - Review of Systems Review of systems:: unable to obtain Meds Home Medications Medication Instructions Recorded Confirmed Type Calcium Carbonate [Tums 500mg 1,000 mg PO QIDP PRN 07/01/18 04/26/19 History chewtab] Quetiapine Fumarate [Seroquel 25mg 25 mg PO BID 07/01/18 04/26/19 History tablet] Morphine Sulfate [Roxanol 20mg/mL 0.25 ml PO Q4HP PRN 07/02/18 04/26/19 History 1mL oral solution UDC] Budesonide/Formoterol Fumarate 2 puffs IH BID 12/17/18 04/26/19 History [Symbicort 160-4.5 Mcg Inhaler] Gabapentin [Gabapentin 100mg Cap] 100 mg PO TID 12/17/18 04/26/19 History Acetaminophen [Acetaminophen Extra 500 mg PO Q4HP PRN 12/18/18 04/26/19 History Strength] lidocaine 4 % topical patch 1 patch TOPICAL DAILYP PRN 12/24/18 04/26/19 History famotidine 20 mg tablet 20 mg PO DAILY 02/06/19 04/26/19 History Alendronate Sodium [Fosamax 70mg 70 mg PO WEEKLY 04/13/19 04/26/19 History Tablet] Metformin HCl [Metformin ER 500 mg PO DAILY 04/13/19 04/26/19 History Osmotic] Spironolactone [Spironolactone 25 mg PO BID 04/13/19 04/26/19 History 25mg Tablet] Calcium Carbonate [Calcium] 600 mg PO BID 04/20/19 04/26/19 History Cholecalciferol (Vitamin D3) 400 unit PO BID 04/20/19 04/26/19 History [Vitamin D3] Ondansetron [Zofran 4mg ODT] 4 mg PO Q8HP PRN 04/20/19 04/26/19 History Amoxicillin/Potassium Clav 1 tab PO Q12H 04/26/19 04/26/19 History [Augmentin 875-125 Tablet] levoFLOXacin [Levaquin 500mg 500 mg PO DAILY 04/26/19 04/26/19 History tab] predniSONE [Deltasone 20mg 20 mg PO BID 04/26/19 04/26/19 History tablet] Allergies Allergy/AdvReac Type Severity Reaction Status Date / Time orange juice Allergy Mild Rash Verified 04/06/19 11:14 Exam Vital signs and Labs for Last 24 Hours: Temp Pulse Resp BP Pulse Ox 97.1 F L 85 20 139/71 93 L 04/27/19 08:07 04/27/19 08:00 04/27/19 08:00 04/27/19 08:00 04/27/19 08:00 Laboratory Results - last 24 hr 04/26/19 15:03: Urine Color Yellow, Urine Appearance Clear, Urine pH 7.0, Ur Specific [place] 1.015, Urine Protein Negative, Urine Glucose (UA) 2+, Urine Ketones Negative, Urine Blood Negative, Urine Nitrate Negative, Urine Bilirubin Negative, Urine Urobilinogen 0.2, Ur Leukocyte Esterase Negative, Urine RBC Occasional, Urine WBC None, Ur Squamous Epith Cells Occasional, Urine Bacteria None 04/26/19 15:03: WBC 10.0, RBC 4.58, Hgb 12.8, Hct 42.7, MCV 93.4, MCH 28.0, MCHC 30.0 L, RDW 13.9, Plt Count 150, MPV 7.7, Neut % (Auto) 89.5 H, Lymph % (Auto) 7.4 L, [place] % (Auto) 2.5, Eos % (Auto) 0.3, Baso % (Auto) 0.3, Neut # (Auto) 8.9 H, Lymph # (Auto) 0.7, [place] # (Auto) 0.3, Eos # (Auto) 0.0, Baso # (Auto) 0.0, Total Counted 100, Neutrophils % (Manual) 87 H, Lymphocytes % (Manual) 8 L, Monocytes % (Manual) 5, Platelet Estimate Normal, Hypochromasia 1+, Poikilocytosis 1+, Stomatocytes 1+ 04/26/19 15:03: Sodium 148 H, Potassium 3.7 D, Chloride 103, Carbon Dioxide 40 H, Anion Gap 8.7, BUN 12, Creatinine 0.50 L, Estimated Creat Clear 89, Estimated GFR 123, Est GFR ( Amer) 148, Glucose 197 H, Calcium 9.1 D, Total Bilirubin 0.5, AST 18, ALT 52, Alkaline Phosphatase 68, Total Protein 6.4, Albumin 2.3 L, Globulin 4.1 H, Albumin/Globulin Ratio 0.6 L 04/26/19 15:03: Lactate 0.8 04/26/19 15:11: Influenza Type A Ag Negative, Influenza Type B Ag Negative 04/26/19 15:26: Specimen Source Right radial, O2 % 100, ABG pH 7.25 L, ABG pCO2 90.6 H, ABG pO2 69.4 L, ABG HCO3 39.0 H, ABG Total CO2 41.8 H, ABG O2 Saturation 92, ABG Base Excess 11.8 H, Jaylen Test N/a 04/26/19 16:15: Specimen Source Right radial, O2 % 65, ABG pH 7.28 L, ABG pCO2 80.7 H, ABG pO2 68.4 L, ABG HCO3 37.4 H, ABG Total CO2 39.9 H, ABG O2 Saturation 92, ABG Base Excess 10.7 H, Jaylen Test N/a, Vent Rate 20, Tidal Volume Bipap 18/6 04/26/19 20:23: POC Glucose 160 H 04/26/19 21:19: Troponin I 0.07 H 04/27/19 03:00: WBC 5.7 D, RBC 4.04 L, Hgb 11.1 L D, Hct 37.0, MCV 91.4, MCH 27.4, MCHC 29.9 L, RDW 13.9, Plt Count 128 L, MPV 7.8, Neut % (Auto) 80.0, Lymph % (Auto) 15.2, [place] % (Auto) 4.0, Eos % (Auto) 0.5, Baso % (Auto) 0.3, Neut # (Auto) 4.5, Lymph # (Auto) 0.9, [place] # (Auto) 0.2, Eos # (Auto) 0.0, Baso # (Auto) 0.0 04/27/19 03:00: Sodium 149 H, Potassium 3.1 L, Chloride 105, Carbon Dioxide 43 H*, Anion Gap 4.1 L, BUN 8 D, Creatinine 0.50 L, Estimated Creat Clear 89, Estimated GFR 123, Est GFR ( Amer) 148, Glucose 198 H, Calcium 8.2 L, Magnesium 1.6, Troponin I 0.04 04/27/19 05:31: POC Glucose 213 H 04/27/19 06:35: Specimen Source Right brachial, O2 % 55, ABG pH 7.34 L, ABG pCO2 80.3 H, ABG pO2 78.7 L, ABG HCO3 42.6 H, ABG Total CO2 45.1 H, ABG O2 Saturation 95, ABG Base Excess 16.9 H, Jaylen Test Patient unable, Vent Rate 20, Tidal Volume 588 I & O for Last 24 hours: Intake & Output 04/24/19 04/25/19 04/26/19 04/27/19 11:59 11:59 11:59 11:59 Intake Total 1151 / 1151 Output Total 2150 / 2150 Balance -999 / -999 Weight 181 lb 5 oz - Constitutional moderate distress, chronically ill appearing - *Routine HEENT Exam Head: Present: normocephalic Eye: Present: PERRL ENT: Present: mucous membranes moist - *Routine Neck Exam Present: supple. Absent: lymphadenopathy - *Routine Respiratory Exam Present: rhonchi, wheezes, diminished air movement Comments: On BiPAP - *Routine Cardiovascular Exam Present: RRR - *Routine Abdominal Exam Present: soft, normoactive bowel sounds. Absent: tenderness - *Routine Extremities Exam Present: full ROM, normal capillary refill. Absent: cyanosis, clubbing, edema - *Routine Skin Exam Present: warm. Absent: rash Comments: Dressing to left cheek and bridge of nose. - *Routine Neurological Exam Present: alert Patient arousable and follows commands. - Routine Psychiatric Exam Present: normal affect Assessment and Plan (1) Respiratory failure with hypoxia and hypercapnia Current visit: Yes Status: Acute Qualifiers: Chronicity: acute Qualified Code(s): J96.01 - Acute respiratory failure with hypoxia; J96.02 - Acute respiratory failure with hypercapnia Category: Medical Code(s): J96.91 - Respiratory failure, unspecified with hypoxia; J96.92 - Respiratory failure, unspecified with hypercapnia Patient is on BiPAP we will repeat ABGs at noon today (2) Acute and chronic respiratory failure ([id number]) Current visit: No Status: Acute Category: Medical Code(s): J96.20 - Acute and chronic respiratory failure, unspecified whether with hypoxia or hypercapnia Patient is currently on BiPAP we will repeat ABGs at noon today (3) Non-compliance Current visit: No Status: Acute Category: Medical Code(s): Z91.19 - Patient's noncompliance with other medical treatment and regimen We will discuss with patient the need to use the trilogy unit (4) Pneumonia Current visit: No Status: Acute Qualifiers: Pneumonia type: due to unspecified organism Laterality: bilateral Lung location: lower lobe of lung Qualified Code(s): J18.9 - Pneumonia, unspecified organism Category: Medical Code(s): J18.9 - Pneumonia, unspecified organism Waiting cultures on Levaquin and vancomycin (5) Respiratory failure Current visit: No Status: Acute Category: Medical Code(s): J96.90 - Respiratory failure, unspecified, unspecified whether with hypoxia or hypercapnia On BiPAP (6) Diabetes mellitus Current visit: No Status: Chronic Qualifiers: Diabetes mellitus type: type 2 Diabetes mellitus rodent exterminator insulin use: with rodent exterminator use Diabetes mellitus complication status: with circulatory complication Diabetes mellitus complication detail: with other circulatory complications Qualified Code(s): E11.59 - Type 2 diabetes mellitus with other circulatory complications; Z79.4 - intermediate frame tender (current) use of insulin Category: Medical Code(s): E11.9 - Type 2 diabetes mellitus without complications On low intensity sliding scale insulin - Assessment and plan all Dx Assessment and Plan for all problems:: Rounded with Dr. Dennison all orders per Dr. Dennison Continue BiPAP we will repeat ABG at noon today
[2019-04-27 12:14] LABS: ABG Base Excess 19.6 mmol/L (-2.4-2.3); ABG HCO3 45.1 mmhg (22.0-26.0); ABG Oxygen Saturation 94 % (90-100); ABG PH 7.36 mmol/L (7.35-7.45); ABG PO2 67.8 mmhg (80-100); ABG TCO2 47.7 mmhg (23-27)
[2019-04-27 12:18] LABS: Allen's Test Patient Unable
[2019-04-27 12:19] LABS: ABG PCO2 82.7 mmhg (35.0-45.0)
[2019-04-28 06:23] LABS: Basophils % 0.1 % (0.1-2.0); Eosinophils % 0.1 % (0.1-12.0); Lymphocytes # 0.3 K/mm3 (0.7-4.5); Lymphocytes % 4.7 % (10-50); Mean Corpuscular HGB Conc 31.5 g/dL (31.8-35.4); Mean Corpuscular Volume 92.2 fl (81-99); Mean Platelet Volume 7.9 fl (7.4-10.4); Monocytes # 0.2 K/mm3 (0.1-1.0); Monocytes % 2.5 % (1.7-9.3); Neutrophils # 5.6 K/mm3 (1.8-7.8); Neutrophils % 92.6 % (37.0-80.0); Platelet Count 146 K/mm3 (142-424); Red Cell Distribution Width 13.7 % (11.5-17.5); White Blood Count 6.1 K/mm3 (4.8-10.8)
[2019-04-28 06:24] LABS: Anion Gap 4.5 mEq/L (5-15)
[2019-04-28 07:16] LABS: Lymphocytes % 1 % (10-50); Monocytes % 1 % (2-9); Neutrophils % 97 % (42-76); Total Cells Counted 100
[2019-04-28 07:17] LABS: Stomatocytes 1+
--- NOTE | 2019-04-28 09:20 | Progress Note ---
Internal Medicine - PN: Subj *Date: 04/28/19 *Time: 09:22 Interval history: 69-year-old female patient sitting up in bed on Vapotherm, she reports she will not use BiPAP. Discussion with patient purpose of BiPAP and trilogy, patient still refuses Exam Vital signs and Labs for Last 24 Hours: Temp Pulse Resp BP Pulse Ox 97.4 F L 65 25 H 134/71 93 L 04/28/19 08:00 04/28/19 08:00 04/28/19 08:00 04/28/19 08:00 04/28/19 08:00 Laboratory Results - last 24 hr 04/27/19 11:29: POC Glucose 243 H 04/27/19 12:00: Specimen Source Right radial, O2 % 55%, ABG pH 7.36, ABG pCO2 82.7 H, ABG pO2 67.8 L, ABG HCO3 45.1 H, ABG Total CO2 47.7 H, ABG O2 Saturation 94, ABG Base Excess 19.6 H, Jaylen Test Patient unable 04/27/19 16:27: POC Glucose 170 H 04/27/19 20:10: POC Glucose 159 H 04/28/19 05:02: POC Glucose 220 H 04/28/19 06:05: WBC 6.1, RBC 3.80 L, Hgb 11.0 L, Hct 35.0 L, MCV 92.2, MCH 29.0, MCHC 31.5 L, RDW 13.7, Plt Count 146, MPV 7.9, Neut % (Auto) 92.6 H, Lymph % (Auto) 4.7 L, [place] % (Auto) 2.5, Eos % (Auto) 0.1, Baso % (Auto) 0.1, Neut # (Auto) 5.6, Lymph # (Auto) 0.3 L, [place] # (Auto) 0.2, Eos # (Auto) 0.0, Baso # (Auto) 0.0, Total Counted 100, Neutrophils % (Manual) 97 H, Band Neutrophils % 1.0, Lymphocytes % (Manual) 1 L, Monocytes % (Manual) 1 L, Platelet Estimate Normal, Poikilocytosis 1+, Stomatocytes 1+ 04/28/19 06:05: Sodium 147 H, Potassium 3.5, Chloride 107, Carbon Dioxide 39 H, Anion Gap 4.5 L, BUN 11 D, Creatinine 0.54 L, Estimated Creat Clear 67, Estimat ed GFR 112, Est GFR ( Amer) 136, Glucose 217 H, Calcium 8.0 L I & O for Last 24 hours: Intake & Output 04/25/19 04/26/19 04/27/19 04/28/19 23:59 23:59 23:59 23:59 Intake Total 2399 / 2399 1418 / 1418 Output Total 800 / 1350 4900 / 4900 650 / 650 Balance -800 / -1350 -2501 / -2501 768 / 768 Weight 230 lb 180 lb 12.465 oz 174 lb 7 oz - Constitutional no acute distress - *Routine HEENT Exam Head: Present: normocephalic, atraumatic. Absent: tenderness of temporal artery Eye: Present: EOMI, PERRL. Absent: periorbital tenderness ENT: Present: mucous membranes dry. Absent: sinus tenderness - *Routine Neck Exam Present: full ROM, trachea midline. Absent: JVD, tracheal deviation - *Routine Respiratory Exam Present: decreased breath sounds, rhonchi, wheezes - *Routine Cardiovascular Exam Present: RRR - *Routine Abdominal Exam Present: soft, normoactive bowel sounds. Absent: tenderness, firm - *Routine Extremities Exam Present: pulses intact. Absent: calf tenderness - Routine Back/Spine/Pelvis Exam Back/Spine: Present: full ROM. Absent: CVA tenderness - *Routine Skin Exam Present: dry, warm, wounds Comments: Drsg to Bridge of nose and L Cheek - *Routine Neurological Exam Present: alert, oriented X3, CN II-XII intact. Absent: pronator drift, altered mental status - Routine Psychiatric Exam Present: normal affect, normal thought process. Absent: suicidal ideation, homicidal ideation Assessment and Plan (1) Respiratory failure with hypoxia and hypercapnia Current visit: Yes Status: Acute Qualifiers: Chronicity: acute Qualified Code(s): J96.01 - Acute respiratory failure with hypoxia; J96.02 - Acute respiratory failure with hypercapnia Category: Medical Code(s): J96.91 - Respiratory failure, unspecified with hypoxia; J96.92 - Respiratory failure, unspecified with hypercapnia (2) Acute and chronic respiratory failure ([id number]) Current visit: No Status: Acute Category: Medical Code(s): J96.20 - Acute and chronic respiratory failure, unspecified whether with hypoxia or hypercapnia (3) Non-compliance Current visit: No Status: Acute Category: Medical Code(s): Z91.19 - Patient's noncompliance with other medical treatment and regimen (4) Pneumonia Current visit: No Status: Acute Qualifiers: Pneumonia type: due to unspecified organism Laterality: bilateral Lung location: lower lobe of lung Qualified Code(s): J18.9 - Pneumonia, unspecified organism Category: Medical Code(s): J18.9 - Pneumonia, unspecified organism (5) Respiratory failure Current visit: No Status: Acute Category: Medical Code(s): J96.90 - Respiratory failure, unspecified, unspecified whether with hypoxia or hypercapnia (6) Diabetes mellitus Current visit: No Status: Chronic Qualifiers: Diabetes mellitus type: type 2 Diabetes mellitus ocean transportation intermediary insulin use: with correction use Diabetes mellitus complication status: with circulatory complication Diabetes mellitus complication detail: with other circulatory complications Qualified Code(s): E11.59 - Type 2 diabetes mellitus with other circulatory complications; Z79.4 - residential (current) use of insulin Category: Medical Code(s): E11.9 - Type 2 diabetes mellitus without complications (7) Morbid obesity with alveolar hypoventilation Current visit: No Status: Acute Category: Medical Code(s): E66.2 - Morbid (severe) obesity with alveolar hypoventilation (8) Pickwickian syndrome Current visit: No Status: Acute Category: Medical Code(s): E66.2 - Morbid (severe) obesity with alveolar hypoventilation (9) Dyspnea Current visit: No Status: Chronic Qualifiers: Dyspnea type: acute respiratory distress Qualified Code(s): R06.03 - Acute respiratory distress Category: Medical Code(s): R06.00 - Dyspnea, unspecified (10) COPD (chronic obstructive pulmonary disease) with emphysema Current visit: No Status: Chronic Qualifiers: Emphysema type: panlobular Qualified Code(s): J43.1 - Panlobular emphysema Category: Medical Code(s): J43.9 - Emphysema, unspecified (11) COPD exacerbation Current visit: No Status: Acute Category: Medical Code(s): J44.1 - Chronic obstructive pulmonary disease with (acute) exacerbation (12) Acute respiratory failure with hypoxia and hypercarbia Current visit: No Status: Acute Category: Medical Code(s): J96.01 - Acute respiratory failure with hypoxia; J96.02 - Acute respiratory failure with hypercapnia (13) CO2 narcosis Current visit: No Status: Acute Category: Medical Code(s): R06.89 - Other abnormalities of breathing (14) Acute respiratory failure with hypercapnia Current visit: No Status: Acute Category: Medical Code(s): J96.02 - Acute respiratory failure with hypercapnia (15) Tobacco use Current visit: No Status: Chronic Category: Social Hx Code(s): Z72.0 - Tobacco use - Assessment and plan all Dx Assessment and Plan for all problems:: Rounded with Dr. Dennison, all orders per Dr. Dennison 1. We will place on 3 L nasal cannula and draw blood gas 1 hour
[2019-04-28 09:28] LABS: ABG Base Excess 14.4 mmol/L (-2.4-2.3); ABG HCO3 38.6 mmhg (22.0-26.0); ABG Oxygen Saturation 80 % (90-100); ABG PH 7.44 mmol/L (7.35-7.45); ABG TCO2 40.4 mmhg (23-27)
[2019-04-28 09:30] LABS: Allen's Test Acceptable; Oxygen 2.5 %
[2019-04-28 09:31] LABS: ABG PCO2 58.7 mmhg (35.0-45.0)
[2019-04-28 09:32] LABS: ABG PO2 38.8 mmhg (80-100)
--- NOTE | 2019-04-28 20:08 | Electrocardiograph Report ---
APPROVED REPORT Exam: Resting ECG HR:129 bpm ECG Measurements Heart Rate 129 AXES PA 124 P 68 QRSd 90 QRS 2 QT 332 T70 QTc 486 <Conclusion> Poor data quality, interpretation may be adversely affected Undetermined rhythm Low voltage QRS Septal infarct, age undetermined Abnormal ECG Electronically signed by : Saturnino Farmer, 04/28/2019 20:08:03
[2019-04-29 06:03] LABS: Hematocrit 38.4 % (37.0-47.0); Hemoglobin 11.7 g/dL (12.2-16.2); Lymphocytes # 0.4 K/mm3 (0.7-4.5); Lymphocytes % 4.4 % (10-50); Mean Corpuscular HGB Conc 30.4 g/dL (31.8-35.4); Mean Corpuscular Volume 92.5 fl (81-99); Mean Platelet Volume 8.1 fl (7.4-10.4); Monocytes # 0.3 K/mm3 (0.1-1.0); Monocytes % 3.6 % (1.7-9.3); Neutrophils # 7.5 K/mm3 (1.8-7.8); Neutrophils % 91.9 % (37.0-80.0); Platelet Count 165 K/mm3 (142-424); Red Blood Count 4.16 M/mm3 (4.20-5.40); White Blood Count 8.2 K/mm3 (4.8-10.8)
[2019-04-29 06:41] LABS: Anion Gap 6.6 mEq/L (5-15); Calcium 8.3 mg/dL (8.5-10.1)
--- NOTE | 2019-04-29 08:36 | Progress Note ---
Internal Medicine - PN: Subj *Date: 04/29/19 *Time: 08:33 Interval history: 69-year-old female patient sitting up in bed tolerating 3 L per nasal cannula without difficulty. Reports she feels a lot better today, and agrees to try nasal mask with BiPAP Exam Vital signs and Labs for Last 24 Hours: Temp Pulse Resp BP Pulse Ox 98.2 F 92 H 19 160/58 H 85 L 04/29/19 06:00 04/29/19 06:00 04/29/19 06:00 04/29/19 06:00 04/29/19 06:00 Laboratory Results - last 24 hr 04/28/19 09:12: Specimen Source Right radial, O2 % 2.5, ABG pH 7.44, ABG pCO2 58.7 H, ABG pO2 38.8 L, ABG HCO3 38.6 H, ABG Total CO2 40.4 H, ABG O2 Saturation 80 L*, ABG Base Excess 14.4 H, Jaylen Test Acceptable 04/28/19 11:23: POC Glucose 262 H 04/28/19 17:15: POC Glucose 196 H 04/28/19 18:40: Vancomycin Trough 9.2 L 04/28/19 19:38: POC Glucose 253 H 04/29/19 05:10: POC Glucose 205 H 04/29/19 05:30: WBC 8.2 D, RBC 4.16 L, Hgb 11.7 L, Hct 38.4, MCV 92.5, MCH 28.2, MCHC 30.4 L, RDW 14.0, Plt Count 165, MPV 8.1, Neut % (Auto) 91.9 H, Lymph % (Auto) 4.4 L, [place] % (Auto) 3.6, Eos % (Auto) 0.0 L, Baso % (Auto) 0.0 L, Neut # (Auto) 7.5, Lymph # (Auto) 0.4 L, [place] # (Auto) 0.3, Eos # (Auto) 0.0, Baso # (Auto) 0.0 04/29/19 05:30: Sodium 147 H, Potassium 3.6, Chloride 108 H, Carbon Dioxide 36 H , Anion Gap 6.6, BUN 14 D, Creatinine 0.64, Estimated Creat Clear 68, Estimated GFR 92, Est GFR ( Amer) 112, Glucose 234 H, Calcium 8.3 L I & O for Last 24 hours: Intake & Output 04/26/19 04/27/19 04/28/19 04/29/19 23:59 23:59 23:59 23:59 Intake Total 2549 / 2549 1898 / 1908 2426 / 2426 Output Total 800 / 1350 4900 / 4900 3350 / 3350 1800 / 1800 Balance -800 / -1350 -2351 / -2351 -1452 / -1442 626 / 626 Weight 230 lb 180 lb 12.465 oz 174 lb 7 oz 176 lb 3 oz Microbiology Reports for the Last 24 Hours: Microbiology 04/26/19 15:22 Blood Blood Culture - Preliminary NO GROWTH AFTER 48 HOURS 04/26/19 15:22 Blood Blood Culture - Preliminary NO GROWTH AFTER 48 HOURS 04/27/19 11:05 Rectum Miscellaneous Reference Culture - Preliminary - Constitutional no acute distress, chronically ill appearing - *Routine HEENT Exam Head: Present: normocephalic, atraumatic. Absent: tenderness of temporal artery Eye: Present: EOMI, PERRL, normal accommodation. Absent: periorbital tenderness ENT: Present: mucous membranes dry. Absent: sinus tenderness - *Routine Neck Exam Present: full ROM, trachea midline. Absent: JVD, tracheal deviation - *Routine Respiratory Exam Present: decreased breath sounds, wheezes. Absent: accessory muscle use, rales - *Routine Cardiovascular Exam Present: RRR, murmur - *Routine Abdominal Exam Present: soft, normoactive bowel sounds. Absent: tenderness, firm - *Routine Extremities Exam Present: full ROM, pulses intact. Absent: calf tenderness - Routine Back/Spine/Pelvis Exam Back/Spine: Present: full ROM. Absent: CVA tenderness - *Routine Skin Exam Present: warm, wounds Comments: Drsg Bridge of nose and L Cheek - *Routine Neurological Exam Present: alert, oriented X3, CN II-XII intact. Absent: motor deficit, pronator drift - Routine Psychiatric Exam Present: normal affect, normal thought process. Absent: auditory hallucinations, visual hallucinations Assessment and Plan (1) Respiratory failure with hypoxia and hypercapnia Current visit: Yes Status: Acute Qualifiers: Chronicity: acute Qualified Code(s): J96.01 - Acute respiratory failure with hypoxia; J96.02 - Acute respiratory failure with hypercapnia Category: Medical Code(s): J96.91 - Respiratory failure, unspecified with hypoxia; J96.92 - Respiratory failure, unspecified with hypercapnia (2) Acute and chronic respiratory failure ([id number]) Current visit: No Status: Acute Category: Medical Code(s): J96.20 - Acute and chronic respiratory failure, unspecified whether with hypoxia or hypercapnia (3) Non-compliance Current visit: No Status: Acute Category: Medical Code(s): Z91.19 - Patient's noncompliance with other medical treatment and regimen (4) Pneumonia Current visit: No Status: Acute Qualifiers: Pneumonia type: due to unspecified organism Laterality: bilateral Lung location: lower lobe of lung Qualified Code(s): J18.9 - Pneumonia, unspecified organism Category: Medical Code(s): J18.9 - Pneumonia, unspecified organism (5) Respiratory failure Current visit: No Status: Acute Category: Medical Code(s): J96.90 - Respiratory failure, unspecified, unspecified whether with hypoxia or hypercapnia (6) Diabetes mellitus Current visit: No Status: Chronic Qualifiers: Diabetes mellitus type: type 2 Diabetes mellitus jail insulin use: with jail use Diabetes mellitus complication status: with circulatory complication Diabetes mellitus complication detail: with other circulatory complications Qualified Code(s): E11.59 - Type 2 diabetes mellitus with other circulatory complications; Z79.4 - assistant terminal manager (current) use of insulin Category: Medical Code(s): E11.9 - Type 2 diabetes mellitus without complications (7) Morbid obesity with alveolar hypoventilation Current visit: No Status: Acute Category: Medical Code(s): E66.2 - Morbid (severe) obesity with alveolar hypoventilation (8) Pickwickian syndrome Current visit: No Status: Acute Category: Medical Code(s): E66.2 - Morbid (severe) obesity with alveolar hypoventilation (9) Dyspnea Current visit: No Status: Chronic Qualifiers: Dyspnea type: acute respiratory distress Qualified Code(s): R06.03 - Acute respiratory distress Category: Medical Code(s): R06.00 - Dyspnea, unspecified (10) COPD (chronic obstructive pulmonary disease) with emphysema Current visit: No Status: Chronic Qualifiers: Emphysema type: panlobular Qualified Code(s): J43.1 - Panlobular emphysema Category: Medical Code(s): J43.9 - Emphysema, unspecified (11) COPD exacerbation Current visit: No Status: Acute Category: Medical Code(s): J44.1 - Chronic obstructive pulmonary disease with (acute) exacerbation (12) Acute respiratory failure with hypoxia and hypercarbia Current visit: No Status: Acute Category: Medical Code(s): J96.01 - Acute respiratory failure with hypoxia; J96.02 - Acute respiratory failure with hypercapnia (13) CO2 narcosis Current visit: No Status: Acute Category: Medical Code(s): R06.89 - Other abnormalities of breathing (14) Acute respiratory failure with hypercapnia Current visit: No Status: Acute Category: Medical Code(s): J96.02 - Acute respiratory failure with hypercapnia (15) Tobacco use Current visit: No Status: Chronic Category: Social Hx Code(s): Z72.0 - Tobacco use - Assessment and plan all Dx Assessment and Plan for all problems:: Rounded with Dr. Dennison, all orders per Dr. Dennison 1. We will try BiPAP with new mask 2. PT/OT to eval 3. Possible discharge tomorrow 4. Patient needs volume support to treat respiratory failure, higher pressures on bilevel Pap vision device will not adequately treat patient
[2019-04-29 08:37] LABS: Lymphocytes % 3 % (10-50); Monocytes % 3 % (2-9); Neutrophils % 94 % (42-76); RBC Morphology Normal; Total Cells Counted 100
--- NOTE | 2019-04-29 09:51 | Pharmacy Consult Notes ---
- Pharmacy Consult Date: 04/29/19 Time: 09:49 Referring provider: DR. CARNES Reason for Consult:: VANCOMYCIN TROUGH LEVEL AND DOSE CHANGE Allergies and ADEs:: Allergies Allergy/AdvReac Type Severity Reaction Status Date / Time orange juice Allergy Mild Rash Verified 04/06/19 11:14 Home Medications:: Home Medications Medication Instructions Recorded Confirmed Type Calcium Carbonate [Tums 500mg 1,000 mg PO QIDP PRN 07/01/18 04/26/19 History chewtab] Quetiapine Fumarate [Seroquel 25mg 25 mg PO BID 07/01/18 04/26/19 History tablet] Morphine Sulfate [Roxanol 20mg/mL 0.25 ml PO Q4HP PRN 07/02/18 04/26/19 History 1mL oral solution UDC] Budesonide/Formoterol Fumarate 2 puffs IH BID 12/17/18 04/26/19 History [Symbicort 160-4.5 Mcg Inhaler] Gabapentin [Gabapentin 100mg Cap] 100 mg PO TID 12/17/18 04/26/19 History Acetaminophen [Acetaminophen Extra 500 mg PO Q4HP PRN 12/18/18 04/26/19 History Strength] lidocaine 4 % topical patch 1 patch TOPICAL DAILYP PRN 12/24/18 04/26/19 History famotidine 20 mg tablet 20 mg PO DAILY 02/06/19 04/26/19 History Alendronate Sodium [Fosamax 70mg 70 mg PO WEEKLY 04/13/19 04/26/19 History Tablet] Metformin HCl [Metformin ER 500 mg PO DAILY 04/13/19 04/26/19 History Osmotic] Spironolactone [Spironolactone 25 mg PO BID 04/13/19 04/26/19 History 25mg Tablet] Calcium Carbonate [Calcium] 600 mg PO BID 04/20/19 04/26/19 History Cholecalciferol (Vitamin D3) 400 unit PO BID 04/20/19 04/26/19 History [Vitamin D3] Ondansetron [Zofran 4mg ODT] 4 mg PO Q8HP PRN 04/20/19 04/26/19 History Amoxicillin/Potassium Clav 1 tab PO Q12H 04/26/19 04/26/19 History [Augmentin 875-125 Tablet] levoFLOXacin [Levaquin 500mg 500 mg PO DAILY 04/26/19 04/26/19 History tab] predniSONE [Deltasone 20mg 20 mg PO BID 04/26/19 04/26/19 History tablet] Height: 1.73 m Weight: 79.917 kg Laboratory Results:: Laboratory Results - last 24 hr 04/28/19 11:23: POC Glucose 262 H 04/28/19 17:15: POC Glucose 196 H 04/28/19 18:40: Vancomycin Trough 9.2 L 04/28/19 19:38: POC Glucose 253 H 04/29/19 05:10: POC Glucose 205 H 04/29/19 05:30: WBC 8.2 D, RBC 4.16 L, Hgb 11.7 L, Hct 38.4, MCV 92.5, MCH 28.2, MCHC 30.4 L, RDW 14.0, Plt Count 165, MPV 8.1, Neut % (Auto) 91.9 H, Lymph % (Auto) 4.4 L, [place] % (Auto) 3.6, Eos % (Auto) 0.0 L, Baso % (Auto) 0.0 L, Neut # (Auto) 7.5, Lymph # (Auto) 0.4 L, [place] # (Auto) 0.3, Eos # (Auto) 0.0, Baso # (Auto) 0.0, Total Counted 100, Neutrophils % (Manual) 94 H, Lymphocytes % (Manual) 3 L, Monocytes % (Manual) 3, Platelet Estimate Normal, RBC Morphology Normal 04/29/19 05:30: Sodium 147 H, Potassium 3.6, Chloride 108 H, Carbon Dioxide 36 H , Anion Gap 6.6, BUN 14 D, Creatinine 0.64, Estimated Creat Clear 68, Estimated GFR 92, Est GFR ( Amer) 112, Glucose 234 H, Calcium 8.3 L Medical History: Reports:: Anxiety, Congestive Heart Failure, Chronic Obstructive Pulmonary Disease (COPD), Diabetes Mellitus Type 2, Hyperlipidemia, Hypertension Denies:: Cancer, Diabetes Mellitus Type 1, Internal Pacemaker, MRSA Assessment and Plan (1) Respiratory failure with hypoxia and hypercapnia Current visit: Yes Status: Acute Qualifiers: Chronicity: acute Qualified Code(s): J96.01 - Acute respiratory failure with hypoxia; J96.02 - Acute respiratory failure with hypercapnia Category: Medical Code(s): J96.91 - Respiratory failure, unspecified with hypoxia; J96.92 - Respiratory failure, unspecified with hypercapnia (2) Acute and chronic respiratory failure ([id number]) Current visit: No Status: Acute Category: Medical Code(s): J96.20 - Acute and chronic respiratory failure, unspecified whether with hypoxia or hypercapnia (3) Non-compliance Current visit: No Status: Acute Category: Medical Code(s): Z91.19 - Patient's noncompliance with other medical treatment and regimen (4) Pneumonia Current visit: No Status: Acute Qualifiers: Pneumonia type: due to unspecified organism Laterality: bilateral Lung location: lower lobe of lung Qualified Code(s): J18.9 - Pneumonia, unspecified organism Category: Medical Code(s): J18.9 - Pneumonia, unspecified organism (5) Respiratory failure Current visit: No Status: Acute Category: Medical Code(s): J96.90 - Respiratory failure, unspecified, unspecified whether with hypoxia or hype rcapnia (6) Diabetes mellitus Current visit: No Status: Chronic Qualifiers: Diabetes mellitus type: type 2 Diabetes mellitus senior living insulin use: with logistics lead use Diabetes mellitus complication status: with circulatory complication Diabetes mellitus complication detail: with other circulatory complications Qualified Code(s): E11.59 - Type 2 diabetes mellitus with other circulatory complications; Z79.4 - [facility] (current) use of insulin Category: Medical Code(s): E11.9 - Type 2 diabetes mellitus without complications (7) Morbid obesity with alveolar hypoventilation Current visit: No Status: Acute Category: Medical Code(s): E66.2 - Morbid (severe) obesity with alveolar hypoventilation (8) Pickwickian syndrome Current visit: No Status: Acute Category: Medical Code(s): E66.2 - Morbid (severe) obesity with alveolar hypoventilation (9) Dyspnea Current visit: No Status: Chronic Qualifiers: Dyspnea type: acute respiratory distress Qualified Code(s): R06.03 - Acute respiratory distress Category: Medical Code(s): R06.00 - Dyspnea, unspecified (10) COPD (chronic obstructive pulmonary disease) with emphysema Current visit: No Status: Chronic Qualifiers: Emphysema type: panlobular Qualified Code(s): J43.1 - Panlobular emphysema Category: Medical Code(s): J43.9 - Emphysema, unspecified (11) COPD exacerbation Current visit: No Status: Acute Category: Medical Code(s): J44.1 - Chronic obstructive pulmonary disease with (acute) exacerbation (12) Acute respiratory failure with hypoxia and hypercarbia Current visit: No Status: Acute Category: Medical Code(s): J96.01 - Acute respiratory failure with hypoxia; J96.02 - Acute respiratory failure with hypercapnia (13) CO2 narcosis Current visit: No Status: Acute Category: Medical Code(s): R06.89 - Other abnormalities of breathing (14) Acute respiratory failure with hypercapnia Current visit: No Status: Acute Category: Medical Code(s): J96.02 - Acute respiratory failure with hypercapnia (15) Tobacco use Current visit: No Status: Chronic Category: Social Hx Code(s): Z72.0 - Tobacco use - Assessment and plan all Dx Assessment and Plan for all problems:: BASED ON PATIENT'S VANCOMYCIN TROUGH LEVEL OF 9.2 MCG/ML, RECOMMEND CHANGING DOSE TO VANCOMYCIN 1500 MG Q12H AT THIS TIME. WILL OBTAIN VANCOMYCIN TROUGH LEVEL IN THE AM.
[2019-04-30 06:03] LABS: Basophils % 0.1 % (0.1-2.0); Eosinophils % 0.1 % (0.1-12.0); Hematocrit 35.8 % (37.0-47.0); Hemoglobin 10.8 g/dL (12.2-16.2); Lymphocytes # 0.4 K/mm3 (0.7-4.5); Lymphocytes % 5.1 % (10-50); Mean Corpuscular HGB Conc 30.1 g/dL (31.8-35.4); Mean Corpuscular Volume 91.8 fl (81-99); Mean Platelet Volume 7.9 fl (7.4-10.4); Monocytes # 0.4 K/mm3 (0.1-1.0); Monocytes % 4.5 % (1.7-9.3); Neutrophils % 90.3 % (37.0-80.0); Platelet Count 140 K/mm3 (142-424); Red Cell Distribution Width 14.4 % (11.5-17.5); White Blood Count 7.8 K/mm3 (4.8-10.8)
[2019-04-30 06:10] LABS: Anion Gap 9.5 mEq/L (5-15); Calcium 9.1 mg/dL (8.5-10.1)
--- NOTE | 2019-04-30 09:30 | Progress Note ---
Internal Medicine - PN: Subj *Date: 04/30/19 *Time: 13:34 Interval history: long discussion with pt about options on health. pt is refusing to wear trilogy or bipap but needs support to prevent retaining co2. pt states she will try it once again with anxiety meds and if not she will talk to hospice. Dr vega discussed with pt that she will return to [facility] and need intubated and this will continue because she needs extra support. Exam Vital signs and Labs for Last 24 Hours: Temp Pulse Resp BP Pulse Ox 96.3 F L 84 21 165/86 H 87 L 04/30/19 08:00 04/30/19 08:00 04/30/19 08:00 04/30/19 08:00 04/30/19 08:00 Laboratory Results - last 24 hr 04/29/19 11:36: POC Glucose 236 H 04/29/19 16:50: POC Glucose 268 H 04/29/19 20:32: POC Glucose 214 H 04/30/19 05:30: WBC 7.8, RBC 3.90 L, Hgb 10.8 L, Hct 35.8 L, MCV 91.8, MCH 27.6, MCHC 30.1 L, RDW 14.4, Plt Count 140 L, MPV 7.9, Neut % (Auto) 90.3 H, Lymph % (Auto) 5.1 L, [place] % (Auto) 4.5, Eos % (Auto) 0.1, Baso % (Auto) 0.1, Neut # (Auto) 7.0, Lymph # (Auto) 0.4 L, [place] # (Auto) 0.4, Eos # (Auto) 0.0, Baso # (Auto) 0.0 04/30/19 05:30: Sodium 150 H, Potassium 3.5, Chloride 107, Carbon Dioxide 37 H, Anion Gap 9.5, BUN 15, Creatinine 0.65, Estimated Creat Clear 67, Estimated GFR 91, Est GFR ( Amer) 110, Glucose 234 H, Calcium 9.1 04/30/19 05:40: POC Glucose 217 H I & O for Last 24 hours: Intake & Output 04/27/19 04/28/19 04/29/19 04/30/19 11:59 11:59 11:59 11:59 Intake Total 1151 / 1151 2816 / 2816 3056 / 3056 4217 / 4217 Output Total 2150 / 2150 4200 / 4200 4500 / 4500 2300 / 2300 Balance -999 / -999 -1384 / -1384 -1444 / -1444 191 / 191 Weight 181 lb 5 oz 174 lb 7 oz 176 lb 3 oz 174 lb 4 oz Microbiology Reports for the Last 24 Hours: Microbiology 04/27/19 11:05 Rectum Miscellaneous Reference Culture - Preliminary - Constitutional no acute distress, chronically ill appearing - *Routine HEENT Exam Head: Present: normocephalic Eye: Present: PERRL ENT: Present: mucous membranes moist - *Routine Neck Exam Present: supple. Absent: lymphadenopathy - *Routine Respiratory Exam Present: wheezes - *Routine Cardiovascular Exam Present: RRR - *Routine Abdominal Exam Present: soft, normoactive bowel sounds. Absent: tenderness - *Routine Extremities Exam Present: full ROM, normal capillary refill. Absent: cyanosis, clubbing, edema - *Routine Skin Exam Present: warm, wounds. Absent: rash Comments: healing scab to left cheek - *Routine Neurological Exam Present: alert, oriented X3 - Routine Psychiatric Exam Present: normal affect Assessment and Plan (1) Respiratory failure with hypoxia and hypercapnia Current visit: Yes Status: Acute Qualifiers: Chronicity: acute Qualified Code(s): J96.01 - Acute respiratory failure with hypoxia; J96.02 - Acute respiratory failure with hypercapnia Category: Medical Code(s): J96.91 - Respiratory failure, unspecified with hypoxia; J96.92 - Respiratory failure, unspecified with hypercapnia (2) Acute and chronic respiratory failure ([id number]) Current visit: No Status: Acute Category: Medical Code(s): J96.20 - Acute and chronic respiratory failure, unspecified whether with hypoxia or hypercapnia (3) Non-compliance Current visit: No Status: Acute Category: Medical Code(s): Z91.19 - Patient's noncompliance with other medical treatment and regimen (4) Pneumonia Current visit: No Status: Acute Qualifiers: Pneumonia type: due to unspecified organism Laterality: bilateral Lung location: lower lobe of lung Qualified Code(s): J18.9 - Pneumonia, unspecified organism Category: Medical Code(s): J18.9 - Pneumonia, unspecified organism (5) Respiratory failure Current visit: No Status: Acute Category: Medical Code(s): J96.90 - Respiratory failure, unspecified, unspecified whether with hypoxia or hypercapnia (6) Diabetes mellitus Current visit: No Status: Chronic Qualifiers: Diabetes mellitus type: type 2 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: with longwall shearer operator use Diabetes mellitus complication status: with circulatory complication Diabetes mellitus complication detail: with other circulatory complications Qualified Code(s): E11.59 - Type 2 diabetes mellitus with other circulatory complications; Z79.4 - senior living (current) use of insulin Category: Medical Code(s): E11.9 - Type 2 diabetes mellitus without complications (7) Morbid obesity with alveolar hypoventilation Current visit: No Status: Acute Category: Medical Code(s): E66.2 - Morbid (severe) obesity with alveolar hypoventilation (8) Pickwickian syndrome Current visit: No Status: Acute Category: Medical Code(s): E66.2 - Morbid (severe) obesity with alveolar hypoventilation (9) Dyspnea Current visit: No Status: Chronic Qualifiers: Dyspnea type: acute respiratory distress Qualified Code(s): R06.03 - Acute respiratory distress Category: Medical Code(s): R06.00 - Dyspnea, unspecified (10) COPD (chronic obstructive pulmonary disease) with emphysema Current visit: No Status: Chronic Qualifiers: Emphysema type: panlobular Qualified Code(s): J43.1 - Panlobular emphysema Category: Medical Code(s): J43.9 - Emphysema, unspecified (11) COPD exacerbation Current visit: No Status: Acute Category: Medical Code(s): J44.1 - Chronic obstructive pulmonary disease with (acute) exacerbation (12) Acute respiratory failure with hypoxia and hypercarbia Current visit: No Status: Acute Category: Medical Code(s): J96.01 - Acute respiratory failure with hypoxia; J96.02 - Acute respiratory failure with hypercapnia (13) CO2 narcosis Current visit: No Status: Acute Category: Medical Code(s): R06.89 - Other abnormalities of breathing (14) Acute respiratory failure with hypercapnia Current visit: No Status: Acute Category: Medical Code(s): J96.02 - Acute respiratory failure with hypercapnia (15) Tobacco use Current visit: No Status: Chronic Category: Social Hx Code(s): Z72.0 - Tobacco use - Assessment and plan all Dx Assessment and Plan for all problems:: rounded with dr vega all orders per dr vega trial of trilogy with small dose of anxiety med
--- NOTE | 2019-04-30 10:14 | Progress Note ---
Internal Medicine - PN: Subj *Date: 04/30/19 *Time: 10:14 Exam Vital signs and Labs for Last 24 Hours: Temp Pulse Resp BP Pulse Ox 96.3 F L 84 21 165/86 H 87 L 04/30/19 08:00 04/30/19 08:00 04/30/19 08:00 04/30/19 08:00 04/30/19 08:00 Laboratory Results - last 24 hr 04/29/19 11:36: POC Glucose 236 H 04/29/19 16:50: POC Glucose 268 H 04/29/19 20:32: POC Glucose 214 H 04/30/19 05:30: WBC 7.8, RBC 3.90 L, Hgb 10.8 L, Hct 35.8 L, MCV 91.8, MCH 27.6, MCHC 30.1 L, RDW 14.4, Plt Count 140 L, MPV 7.9, Neut % (Auto) 90.3 H, Lymph % (Auto) 5.1 L, [place] % (Auto) 4.5, Eos % (Auto) 0.1, Baso % (Auto) 0.1, Neut # (Auto) 7.0, Lymph # (Auto) 0.4 L, [place] # (Auto) 0.4, Eos # (Auto) 0.0, Baso # (Auto) 0.0 04/30/19 05:30: Sodium 150 H, Potassium 3.5, Chloride 107, Carbon Dioxide 37 H, Anion Gap 9.5, BUN 15, Creatinine 0.65, Estimated Creat Clear 67, Estimated GFR 91, Est GFR ( Amer) 110, Glucose 234 H, Calcium 9.1 04/30/19 05:40: POC Glucose 217 H I & O for Last 24 hours: Intake & Output 04/27/19 04/28/19 04/29/19 04/30/19 23:59 23:59 23:59 23:59 Intake Total 2549 / 2549 2047 / 2057 4113 / 4233 2530 / 2530 Output Total 4900 / 4900 3350 / 3350 2400 / 2400 1700 / 1700 Balance -2351 / -2351 -1302 / -1292 1713 / 1833 830 / 830 Weight 82 kg 79.124 kg 79.917 kg 79.038 kg Microbiology Reports for the Last 24 Hours: Microbiology 04/27/19 11:05 Rectum Miscellaneous Reference Culture - Preliminary Assessment and Plan (1) Respiratory failure with hypoxia and hypercapnia Current visit: Yes Status: Acute Qualifiers: Chronicity: acute Qualified Code(s): J96.01 - Acute respiratory failure with hypoxia; J96.02 - Acute respiratory failure with hypercapnia Category: Medical Code(s): J96.91 - Respiratory failure, unspecified with hypoxia; J96.92 - Respiratory failure, unspecified with hypercapnia (2) Acute and chronic respiratory failure ([id number]) Current visit: No Status: Acute Category: Medical Code(s): J96.20 - Acute and chronic respiratory failure, unspecified whether with hypoxia or hypercapnia (3) Non-compliance Current visit: No Status: Acute Category: Medical Code(s): Z91.19 - Patient's noncompliance with other medical treatment and regimen (4) Pneumonia Current visit: No Status: Acute Qualifiers: Pneumonia type: due to unspecified organism Laterality: bilateral Lung location: lower lobe of lung Qualified Code(s): J18.9 - Pneumonia, unspecified organism Category: Medical Code(s): J18.9 - Pneumonia, unspecified organism (5) Respiratory failure Current visit: No Status: Acute Category: Medical Code(s): J96.90 - Respiratory failure, unspecified, unspecified whether with hypoxia or hypercapnia (6) Diabetes mellitus Current visit: No Status: Chronic Qualifiers: Diabetes mellitus type: type 2 Diabetes mellitus [facility] insulin use: with 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 Diabetes mellitus complication status: with circulatory complication Diabetes mellitus complication detail: with other circulatory complications Qualified Code(s): E11.59 - Type 2 diabetes mellitus with other circulatory complications; Z79.4 - snf (current) use of insulin Category: Medical Code(s): E11.9 - Type 2 diabetes mellitus without complica tions (7) Morbid obesity with alveolar hypoventilation Current visit: No Status: Acute Category: Medical Code(s): E66.2 - Morbid (severe) obesity with alveolar hypoventilation (8) Pickwickian syndrome Current visit: No Status: Acute Category: Medical Code(s): E66.2 - Morbid (severe) obesity with alveolar hypoventilation (9) Dyspnea Current visit: No Status: Chronic Qualifiers: Dyspnea type: acute respiratory distress Qualified Code(s): R06.03 - Acute respiratory distress Category: Medical Code(s): R06.00 - Dyspnea, unspecified (10) COPD (chronic obstructive pulmonary disease) with emphysema Current visit: No Status: Chronic Qualifiers: Emphysema type: panlobular Qualified Code(s): J43.1 - Panlobular emphysema Category: Medical Code(s): J43.9 - Emphysema, unspecified (11) COPD exacerbation Current visit: No Status: Acute Category: Medical Code(s): J44.1 - Chronic obstructive pulmonary disease with (acute) exacerbation (12) Acute respiratory failure with hypoxia and hypercarbia Current visit: No Status: Acute Category: Medical Code(s): J96.01 - Acute respiratory failure with hypoxia; J96.02 - Acute respiratory failure with hyp ercapnia (13) CO2 narcosis Current visit: No Status: Acute Category: Medical Code(s): R06.89 - Other abnormalities of breathing (14) Acute respiratory failure with hypercapnia Current visit: No Status: Acute Category: Medical Code(s): J96.02 - Acute respiratory failure with hypercapnia (15) Tobacco use Current visit: No Status: Chronic Category: Social Hx Code(s): Z72.0 - Tobacco use The patient's infection will respond to the chosen ABx?: Yes Is the patient receiving the right drug, dose, and route?: Yes Could a more targeted ABx be ordered?: No (PATIENT AFEBRILE, WBC WNL)
--- NOTE | 2019-04-30 11:40 | Pharmacy Consult Notes ---
- Pharmacy Consult Date: 04/30/19 Time: 11:38 Referring provider: DR. CARNES Reason for Consult:: VANCOMYCIN TROUGH LEVEL Allergies and ADEs:: Allergies Allergy/AdvReac Type Severity Reaction Status Date / Time orange juice Allergy Mild Rash Verified 04/06/19 11:14 Home Medications:: Home Medications Medication Instructions Recorded Confirmed Type Calcium Carbonate [Tums 500mg 1,000 mg PO QIDP PRN 07/01/18 04/26/19 History chewtab] Quetiapine Fumarate [Seroquel 25mg 25 mg PO BID 07/01/18 04/26/19 History tablet] Morphine Sulfate [Roxanol 20mg/mL 0.25 ml PO Q4HP PRN 07/02/18 04/26/19 History 1mL oral solution UDC] Budesonide/Formoterol Fumarate 2 puffs IH BID 12/17/18 04/26/19 History [Symbicort 160-4.5 Mcg Inhaler] Gabapentin [Gabapentin 100mg Cap] 100 mg PO TID 12/17/18 04/26/19 History Acetaminophen [Acetaminophen Extra 500 mg PO Q4HP PRN 12/18/18 04/26/19 History Strength] lidocaine 4 % topical patch 1 patch TOPICAL DAILYP PRN 12/24/18 04/26/19 History famotidine 20 mg tablet 20 mg PO DAILY 02/06/19 04/26/19 History Alendronate Sodium [Fosamax 70mg 70 mg PO WEEKLY 04/13/19 04/26/19 History Tablet] Metformin HCl [Metformin ER 500 mg PO DAILY 04/13/19 04/26/19 History Osmotic] Spironolactone [Spironolactone 25 mg PO BID 04/13/19 04/26/19 History 25mg Tablet] Calcium Carbonate [Calcium] 600 mg PO BID 04/20/19 04/26/19 History Cholecalciferol (Vitamin D3) 400 unit PO BID 04/20/19 04/26/19 History [Vitamin D3] Ondansetron [Zofran 4mg ODT] 4 mg PO Q8HP PRN 04/20/19 04/26/19 History Amoxicillin/Potassium Clav 1 tab PO Q12H 04/26/19 04/26/19 History [Augmentin 875-125 Tablet] levoFLOXacin [Levaquin 500mg 500 mg PO DAILY 04/26/19 04/26/19 History tab] predniSONE [Deltasone 20mg 20 mg PO BID 04/26/19 04/26/19 History tablet] Height: 1.73 m Weight: 79.038 kg Laboratory Results:: Laboratory Results - last 24 hr 04/29/19 11:36: POC Glucose 236 H 04/29/19 16:50: POC Glucose 268 H 04/29/19 20:32: POC Glucose 214 H 04/30/19 05:30: WBC 7.8, RBC 3.90 L, Hgb 10.8 L, Hct 35.8 L, MCV 91.8, MCH 27.6, MCHC 30.1 L, RDW 14.4, Plt Count 140 L, MPV 7.9, Neut % (Auto) 90.3 H, Lymph % (Auto) 5.1 L, [place] % (Auto) 4.5, Eos % (Auto) 0.1, Baso % (Auto) 0.1, Neut # (Auto) 7.0, Lymph # (Auto) 0.4 L, [place] # (Auto) 0.4, Eos # (Auto) 0.0, Baso # (Auto) 0.0 04/30/19 05:30: Sodium 150 H, Potassium 3.5, Chloride 107, Carbon Dioxide 37 H, Anion Gap 9.5, BUN 15, Creatinine 0.65, Estimated Creat Clear 67, Estimated GFR 91, Est GFR ( Amer) 110, Glucose 234 H, Calcium 9.1 04/30/19 05:40: POC Glucose 217 H 04/30/19 10:30: Vancomycin Trough 16.8 Medical History: Reports:: Anxiety, Congestive Heart Failure, Chronic Obstructive Pulmonary Disease (COPD), Diabetes Mellitus Type 2, Hyperlipidemia, Hypertension Denies:: Cancer, Diabetes Mellitus Type 1, Internal Pacemaker, MRSA Assessment and Plan (1) Respiratory failure with hypoxia and hypercapnia Current visit: Yes Status: Acute Qualifiers: Chronicity: acute Qualified Code(s): J96.01 - Acute respiratory failure with hypoxia; J96.02 - Acute respiratory failure with hypercapnia Category: Medical Code(s): J96.91 - Respiratory failure, unspecified with hypoxia; J96.92 - Respiratory failure, unspecified with hypercapnia (2) Acute and chronic respiratory failure ([id number]) Current visit: No Status: Acute Category: Medical Code(s): J96.20 - Acute and chronic respiratory failure, unspecified whether with hypoxia or hypercapnia (3) Non-compliance Current visit: No Status: Acute Category: Medical Code(s): Z91.19 - Patient's noncompliance with other medical treatment and regimen (4) Pneumonia Current visit: No Status: Acute Qualifiers: Pneumonia type: due to unspecified organism Laterality: bilateral Lung location: lower lobe of lung Qualified Code(s): J18.9 - Pneumonia, unspecified organism Category: Medical Code(s): J18.9 - Pneumonia, unspecified organism (5) Respiratory failure Current visit: No Status: Acute Category: Medical Code(s): J96.90 - Respiratory failure, unspecified, unspecified whether with hypoxia or hypercapnia (6) Diabetes mellitus Current visit: No Status: Chronic Qualifiers: Diabetes mellitus type: type 2 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 Diabetes mellitus complication status: with circulatory complication Diabetes mellitus complication detail: with other circulatory complications Qualified Code(s): E11.59 - Type 2 diabetes mellitus with other circulatory complications; Z79.4 - [facility] (current) use of insulin Category: Medical Code(s): E11.9 - Type 2 diabetes mellitus without complications (7) Morbid obesity with alveolar hypoventilation Current visit: No Status: Acute Category: Medical Code(s): E66.2 - Morbid (severe) obesity with alveolar hypoventilation (8) Pickwickian syndrome Current visit: No Status: Acute Category: Medical Code(s): E66.2 - Morbid (severe) obesity with alveolar hypoventilation (9) Dyspnea Current visit: No Status: Chronic Qualifiers: Dyspnea type: acute respiratory distress Qualified Code(s): R06.03 - Acute respiratory distress Category: Medical Code(s): R06.00 - Dyspnea, unspecified (10) COPD (chronic obstructive pulmonary disease) with emphysema Current visit: No Status: Chronic Qualifiers: Emphysema type: panlobular Qualified Code(s): J43.1 - Panlobular emphysema Category: Medical Code(s): J43.9 - Emphysema, unspecified (11) COPD exacerbation Current visit: No Status: Acute Category: Medical Code(s): J44.1 - Chronic obstructive pulmonary disease with (acute) exacerbation (12) Acute respiratory failure with hypoxia and hypercarbia Current visit: No Status: Acute Category: Medical Code(s): J96.01 - Acute respiratory failure with hypoxia; J96.02 - Acute respiratory failure with hypercapnia (13) CO2 narcosis Current visit: No Status: Acute Category: Medical Code(s): R06.89 - Other abnormalities of breathing (14) Acute respiratory failure with hypercapnia Current visit: No Status: Acute Category: Medical Code(s): J96.02 - Acute respiratory failure with hypercapnia (15) Tobacco use Current visit: No Status: Chronic Category: Social Hx Code(s): Z72.0 - Tobacco use - Assessment and plan all Dx Assessment and Plan for all problems:: BASED ON VANCOMYCIN TROUGH LEVEL AND PATIENT FACTORS, RECOMMEND CONTINUING VANCOMYCIN 1500 MG IV Q12H. PHARMACY WILL CONTINUE TO FOLLOW DAILY AND ADJUST APPROPRIATE.
[2019-04-30 12:15] LABS: Hypochromasia 1+; Lymphocytes % 7 % (10-50); Monocytes % 3 % (2-9); Neutrophils % 90 % (42-76); Stomatocytes 1+; Total Cells Counted 100
[2019-04-30 18:27] LABS: Calcium 8.8 mg/dL (8.5-10.1)
[2019-05-01 06:53] LABS: Basophils % 0.1 % (0.1-2.0); Hematocrit 35.8 % (37.0-47.0); Hemoglobin 10.8 g/dL (12.2-16.2); Lymphocytes # 0.4 K/mm3 (0.7-4.5); Lymphocytes % 5.3 % (10-50); Mean Corpuscular HGB Conc 30.2 g/dL (31.8-35.4); Mean Corpuscular Volume 92.2 fl (81-99); Mean Platelet Volume 8.1 fl (7.4-10.4); Monocytes # 0.2 K/mm3 (0.1-1.0); Neutrophils # 6.6 K/mm3 (1.8-7.8); Neutrophils % 91.6 % (37.0-80.0); Platelet Count 137 K/mm3 (142-424); Red Blood Count 3.89 M/mm3 (4.20-5.40); Red Cell Distribution Width 14.3 % (11.5-17.5); White Blood Count 7.2 K/mm3 (4.8-10.8)
[2019-05-01 07:39] LABS: Anion Gap 7.3 mEq/L (5-15); Calcium 8.9 mg/dL (8.5-10.1)
--- NOTE | 2019-05-01 09:31 | Discharge Summary ---
General - General Admission date:: 04/26/19 Discharge date: 05/01/19 HPI HPI: 69-year-old female was sent in from [facility] for having acute shortness of breath, respiratory distress and patient being unresponsive. Her oxygen saturation was low 80s, is O2 dependent at 2 L per nasal cannula. Patient had just recently admitted for COPD ex. patient was discharged back to [place] on Saturday on 2 L nasal cannula. Patient did a trial of the trilogy unit but refused to wear it. Patient was admitted for bilateral pneumonia respiratory distress and placed on BiPAP. Patient is unable to give history. Hospital Course Hospital Course: Vital Signs Temp Pulse Pulse Resp BP Pulse Ox 05/01/19 08:00 97.8 F 89 20 116/54 L 98 05/01/19 05:44 64 91 L 05/01/19 04:00 98.3 F 70 76 21 151/70 H 90 L 05/01/19 00:00 98.1 F 90 99 H 20 165/60 H 89 L 04/30/19 22:14 86 04/30/19 20:15 90 L 04/30/19 20:00 98.2 F 90 96 H 18 178/62 H 90 L 04/30/19 18:16 96 H 88 L 04/30/19 16:00 98.3 F 88 83 22 152/74 H 83 L 04/30/19 14:01 91 L 04/30/19 12:20 97.3 F L 04/30/19 12:00 97.8 F 80 95 H 18 145/69 H 91 L Intake and Output 04/30/19 05/01/19 05/01/19 19:59 03:59 11:59 Intake Total 1020 / 1410 150 / 1410 240 / 1410 Output Total 601 / 1501 900 / 1501 Balance 419 / -91 150 / -91 -660 / -91 Intake: Intake, Oral Amount 1020 / 1410 150 / 1410 240 / 1410 Output: Output, Urine Amount 600 / 1500 900 / 1500 Output, Stool Amount 1 / 1 0 / 1 Other: Number of Voids 1 1 Number of Unmeasured Voids 1 Number of Urine Attends/Diapers 1 Weight 179 lb 3 oz Patient Weight 05/01/19 11:59 Weight 179 lb 3 oz Abnormal Labs 04/26/19 04/26/19 04/26/19 15:03 15:03 15:26 RBC Hgb Hct MCHC 30.0 L Plt Count Neut % (Auto) 89.5 H Lymph % (Auto) 7.4 L Eos % (Auto) Baso % (Auto) Neut # (Auto) 8.9 H Lymph # (Auto) Neutrophils % (Manual) 87 H Lymphocytes % (Manual) 8 L Monocytes % (Manual) ABG pH 7.25 L ABG pCO2 90.6 H ABG pO2 69.4 L ABG HCO3 39.0 H ABG Total CO2 41.8 H ABG O2 Saturation ABG Base Excess 11.8 H Sodium 148 H Potassium Chloride Carbon Dioxide 40 H Anion Gap BUN Creatinine 0.50 L Glucose 197 H POC Glucose Calcium Troponin I Albumin 2.3 L Globulin 4.1 H Albumin/Globulin Ratio 0.6 L Vancomycin Trough 04/26/19 04/26/19 04/26/19 16:15 20:23 21:19 RBC Hgb Hct MCHC Plt Count Neut % (Auto) Lymph % (Auto) Eos % (Auto) Baso % (Auto) Neut # (Auto) Lymph # (Auto) Neutrophils % (Manual) Lymphocytes % (Manual) Monocytes % (Manual) ABG pH 7.28 L ABG pCO2 80.7 H ABG pO2 68.4 L ABG HCO3 37.4 H ABG Total CO2 39.9 H ABG O2 Saturation ABG Base Excess 10.7 H Sodium Potassium Chloride Carbon Dioxide Anion Gap BUN Creatinine Glucose POC Glucose 160 H Calcium Troponin I 0.07 H Albumin Globulin Albumin/Globulin Ratio Vancomycin Trough 04/27/19 04/27/19 04/27/19 03:00 03:00 05:31 RBC 4.04 L Hgb 11.1 L D Hct MCHC 29.9 L Plt Count 128 L Neut % (Auto) Lymph % (Auto) Eos % (Auto) Baso % (Auto) Neut # (Auto) Lymph # (Auto) Neutrophils % (Manual) Lymphocytes % (Manual) Monocytes % (Manual) ABG pH ABG pCO2 ABG pO2 ABG HCO3 ABG Total CO2 ABG O2 Saturation ABG Base Excess Sodium 149 H Potassium 3.1 L Chloride Carbon Dioxide 43 H* Anion Gap 4.1 L BUN Creatinine 0.50 L Glucose 198 H POC Glucose 213 H Calcium 8.2 L Troponin I Albumin Globulin Albumin/Globulin Ratio Vancomycin Trough 04/27/19 04/27/19 04/27/19 06:35 11:29 12:00 RBC Hgb Hct MCHC Plt Count Neut % (Auto) Lymph % (Auto) Eos % (Auto) Baso % (Auto) Neut # (Auto) Lymph # (Auto) Neutrophils % (Manual) Lymphocytes % (Manual) Monocytes % (Manual) ABG pH 7.34 L ABG pCO2 80.3 H 82.7 H ABG pO2 78.7 L 67.8 L ABG HCO3 42.6 H 45.1 H ABG Total CO2 45.1 H 47.7 H ABG O2 Saturation ABG Base Excess 16.9 H 19.6 H Sodium Potassium Chloride Carbon Dioxide Anion Gap BUN Creatinine Glucose POC Glucose 243 H Calcium Troponin I Albumin Globulin Albumin/Globulin Ratio Vancomycin Trough 04/27/19 04/27/19 04/28/19 16:27 20:10 05:02 RBC Hgb Hct MCHC Plt Count Neut % (Auto) Lymph % (Auto) Eos % (Auto) Baso % (Auto) Neut # (Auto) Lymph # (Auto) Neutrophils % (Manual) Lymphocytes % (Manual) Monocytes % (Manual) ABG pH ABG pCO2 ABG pO2 ABG HCO3 ABG Total CO2 ABG O2 Saturation ABG Base Excess Sodium Potassium Chloride Carbon Dioxide Anion Gap BUN Creatinine Glucose POC Glucose 170 H 159 H 220 H Calcium Troponin I Albumin Globulin Albumin/Globulin Ratio Vancomycin Trough 04/28/19 04/28/19 04/28/19 06:05 06:05 09:12 RBC 3.80 L Hgb 11.0 L Hct 35.0 L MCHC 31.5 L Plt Count Neut % (Auto) 92.6 H Lymph % (Auto) 4.7 L Eos % (Auto) Baso % (Auto) Neut # (Auto) Lymph # (Auto) 0.3 L Neutrophils % (Manual) 97 H Lymphocytes % (Manual) 1 L Monocytes % (Manual) 1 L ABG pH ABG pCO2 58.7 H ABG pO2 38.8 L ABG HCO3 38.6 H ABG Total CO2 40.4 H ABG O2 Saturation 80 L* ABG Base Excess 14.4 H Sodium 147 H Potassium Chloride Carbon Dioxide 39 H Anion Gap 4.5 L BUN Creatinine 0.54 L Glucose 217 H POC Glucose Calcium 8.0 L Troponin I Albumin Globulin Albumin/Globulin Ratio Vancomycin Trough 04/28/19 04/28/19 04/28/19 11:23 17:15 18:40 RBC Hgb Hct MCHC Plt Count Neut % (Auto) Lymph % (Auto) Eos % (Auto) Baso % (Auto) Neut # (Auto) Lymph # (Auto) Neutrophils % (Manual) Lymphocytes % (Manual) Monocytes % (Manual) ABG pH ABG pCO2 ABG pO2 ABG HCO3 ABG Total CO2 ABG O2 Saturation ABG Base Excess Sodium Potassium Chloride Carbon Dioxide Anion Gap BUN Creatinine Glucose POC Glucose 262 H 196 H Calcium Troponin I Albumin Globulin Albumin/Globulin Ratio Vancomycin Trough 9.2 L 04/28/19 04/29/19 04/29/19 19:38 05:10 05:30 RBC 4.16 L Hgb 11.7 L Hct MCHC 30.4 L Plt Count Neut % (Auto) 91.9 H Lymph % (Auto) 4.4 L Eos % (Auto) 0.0 L Baso % (Auto) 0.0 L Neut # (Auto) Lymph # (Auto) 0.4 L Neutrophils % (Manual) 94 H Lymphocytes % (Manual) 3 L Monocytes % (Manual) ABG pH ABG pCO2 ABG pO2 ABG HCO3 ABG Total CO2 ABG O2 Saturation ABG Base Excess Sodium Potassium Chloride Carbon Dioxide Anion Gap BUN Creatinine Glucose POC Glucose 253 H 205 H Calcium Troponin I Albumin Globulin Albumin/Globulin Ratio Vancomycin Trough 04/29/19 04/29/19 04/29/19 05:30 11:36 16:50 RBC Hgb Hct MCHC Plt Count Neut % (Auto) Lymph % (Auto) Eos % (Auto) Baso % (Auto) Neut # (Auto) Lymph # (Auto) Neutrophils % (Manual) Lymphocytes % (Manual) Monocytes % (Manual) ABG pH ABG pCO2 ABG pO2 ABG HCO3 ABG Total CO2 ABG O2 Saturation ABG Base Excess Sodium 147 H Potassium Chloride 108 H Carbon Dioxide 36 H Anion Gap BUN Creatinine Glucose 234 H POC Glucose 236 H 268 H Calcium 8.3 L Troponin I Albumin Globulin Albumin/Globulin Ratio Vancomycin Trough 04/29/19 04/30/19 04/30/19 20:32 05:30 05:30 RBC 3.90 L Hgb 10.8 L Hct 35.8 L MCHC 30.1 L Plt Count 140 L Neut % (Auto) 90.3 H Lymph % (Auto) 5.1 L Eos % (Auto) Baso % (Auto) Neut # (Auto) Lymph # (Auto) 0.4 L Neutrophils % (Manual) 90 H Lymphocytes % (Manual) 7 L Monocytes % (Manual) ABG pH ABG pCO2 ABG pO2 ABG HCO3 ABG Total CO2 ABG O2 Saturation ABG Base Excess Sodium 150 H Potassium Chloride Carbon Dioxide 37 H Anion Gap BUN Creatinine Glucose 234 H POC Glucose 214 H Calcium Troponin I Albumin Globulin Albumin/Globulin Ratio Vancomycin Trough 04/30/19 04/30/19 04/30/19 05:40 11:36 17:03 RBC Hgb Hct MCHC Plt Count Neut % (Auto) Lymph % (Auto) Eos % (Auto) Baso % (Auto) Neut # (Auto) Lymph # (Auto) Neutrophils % (Manual) Lymphocytes % (Manual) Monocytes % (Manual) ABG pH ABG pCO2 ABG pO2 ABG HCO3 ABG Total CO2 ABG O2 Saturation ABG Base Excess Sodium Potassium Chloride Carbon Dioxide Anion Gap BUN Creatinine Glucose POC Glucose 217 H 321 H* 200 H Calcium Troponin I Albumin Globulin Albumin/Globulin Ratio Vancomycin Trough 04/30/19 04/30/19 05/01/19 18:10 20:06 06:00 RBC 3.89 L Hgb 10.8 L Hct 35.8 L MCHC 30.2 L Plt Count 137 L Neut % (Auto) 91.6 H Lymph % (Auto) 5.3 L Eos % (Auto) 0.0 L Baso % (Auto) Neut # (Auto) Lymph # (Auto) 0.4 L Neutrophils % (Manual) Lymphocytes % (Manual) Monocytes % (Manual) ABG pH ABG pCO2 ABG pO2 ABG HCO3 ABG Total CO2 ABG O2 Saturation ABG Base Excess Sodium 146 H Potassium Chloride Carbon Dioxide 38 H Anion Gap BUN 19 H D Creatinine Glucose 279 H POC Glucose 294 H Calcium Troponin I Albumin Globulin Albumin/Globulin Ratio Vancomycin Trough 05/01/19 05/01/19 06:00 06:25 RBC Hgb Hct MCHC Plt Count Neut % (Auto) Lymph % (Auto) Eos % (Auto) Baso % (Auto) Neut # (Auto) Lymph # (Auto) Neutrophils % (Manual) Lymphocytes % (Manual) Monocytes % (Manual) ABG pH ABG pCO2 ABG pO2 ABG HCO3 ABG Total CO2 ABG O2 Saturation ABG Base Excess Sodium 146 H Potassium Chloride Carbon Dioxide 37 H Anion Gap BUN Creatinine Glucose 274 H POC Glucose 234 H Calcium Troponin I Albumin Globulin Albumin/Globulin Ratio Vancomycin Trough Lab Results 04/26/19 15:03: Urine Color Yellow, Urine Appearance Clear, Urine pH 7.0, Ur Specific [place] 1.015, Urine Protein Negative, Urine Glucose (UA) 2+, Urine Ketones Negative, Urine Blood Negative, Urine Nitrate Negative, Urine Bilirubin Negative, Urine Urobilinogen 0.2, Ur Leukocyte Esterase Negative, Urine RBC Occasional, Urine WBC None, Ur Squamous Epith Cells Occasional, Urine Bacteria None 04/26/19 15:03: WBC 10.0, RBC 4.58, Hgb 12.8, Hct 42.7, MCV 93.4, MCH 28.0, MCHC 30.0 L, RDW 13.9, Plt Count 150, MPV 7.7, Neut % (Auto) 89.5 H, Lymph % (Auto) 7.4 L, [place] % (Auto) 2.5, Eos % (Auto) 0.3, Baso % (Auto) 0.3, Neut # (Auto) 8.9 H, Lymph # (Auto) 0.7, [place] # (Auto) 0.3, Eos # (Auto) 0.0, Baso # (Auto) 0.0, Total Counted 100, Neutrophils % (Manual) 87 H, Lymphocytes % (Manual) 8 L, Monocytes % (Manual) 5, Platelet Estimate Normal, Hypochromasia 1+, Poikilocytosis 1+, Stomatocytes 1+ 04/26/19 15:03: Sodium 148 H, Potassium 3.7 D, Chloride 103, Carbon Dioxide 40 H, Anion Gap 8.7, BUN 12, Creatinine 0.50 L, Estimated Creat Clear 89, Estimated GFR 123, Est GFR ( Amer) 148, Glucose 197 H, Calcium 9.1 D, Total Bilirubin 0.5, AST 18, ALT 52, Alkaline Phosphatase 68, Total Protein 6.4, Albumin 2.3 L, Globulin 4.1 H, Albumin/Globulin Ratio 0.6 L 04/26/19 15:03: Lactate 0.8 04/26/19 15:11: Influenza Type A Ag Negative, Influenza Type B Ag Negative 04/26/19 15:26: Specimen Source Right radial, O2 % 100, ABG pH 7.25 L, ABG pCO2 90.6 H, ABG pO2 69.4 L, ABG HCO3 39.0 H, ABG Total CO2 41.8 H, ABG O2 Saturation 92, ABG Base Excess 11.8 H, Jaylen Test N/a 04/26/19 16:15: Specimen Source Right radial, O2 % 65, ABG pH 7.28 L, ABG pCO2 80.7 H, ABG pO2 68.4 L, ABG HCO3 37.4 H, ABG Total CO2 39.9 H, ABG O2 Saturation 92, ABG Base Excess 10.7 H, Jaylen Test N/a, Vent Rate 20, Tidal Volume Bipap 18/6 04/26/19 20:23: POC Glucose 160 H 04/26/19 21:19: Troponin I 0.07 H 04/27/19 03:00: WBC 5.7 D, RBC 4.04 L, Hgb 11.1 L D, Hct 37.0, MCV 91.4, MCH 27.4, MCHC 29.9 L, RDW 13.9, Plt Count 128 L, MPV 7.8, Neut % (Auto) 80.0, Lymph % (Auto) 15.2, [place] % (Auto) 4.0, Eos % (Auto) 0.5, Baso % (Auto) 0.3, Neut # (Auto) 4.5, Lymph # (Auto) 0.9, [place] # (Auto) 0.2, Eos # (Auto) 0.0, Baso # (Auto) 0.0 04/27/19 03:00: Sodium 149 H, Potassium 3.1 L, Chloride 105, Carbon Dioxide 43 H*, Anion Gap 4.1 L, BUN 8 D, Creatinine 0.50 L, Estimated Creat Clear 89, Estimated GFR 123, Est GFR ( Amer) 148, Glucose 198 H, Calcium 8.2 L, Magnesium 1.6, Troponin I 0.04 04/27/19 05:31: POC Glucose 213 H 04/27/19 06:35: Specimen Source Right brachial, O2 % 55, ABG pH 7.34 L, ABG pCO2 80.3 H, ABG pO2 78.7 L, ABG HCO3 42.6 H, ABG Total CO2 45.1 H, ABG O2 Saturation 95, ABG Base Excess 16.9 H, Jaylen Test Patient unable, Vent Rate 20, Tidal Volume 588 04/27/19 11:29: POC Glucose 243 H 04/27/19 12:00: Specimen Source Right radial, O2 % 55%, ABG pH 7.36, ABG pCO2 82.7 H, ABG pO2 67.8 L, ABG HCO3 45.1 H, ABG Total CO2 47.7 H, ABG O2 Saturation 94, ABG Base Excess 19.6 H, Jaylen Test Patient unable 04/27/19 16:27: POC Glucose 170 H 04/27/19 20:10: POC Glucose 159 H 04/28/19 05:02: POC Glucose 220 H 04/28/19 06:05: WBC 6.1, RBC 3.80 L, Hgb 11.0 L, Hct 35.0 L, MCV 92.2, MCH 29.0, MCHC 31.5 L, RDW 13.7, Plt Count 146, MPV 7.9, Neut % (Auto) 92.6 H, Lymph % (Auto) 4.7 L, [place] % (Auto) 2.5, Eos % (Auto) 0.1, Baso % (Auto) 0.1, Neut # (Auto) 5.6, Lymph # (Auto) 0.3 L, [place] # (Auto) 0.2, Eos # (Auto) 0.0, Baso # (Auto) 0.0, Total Counted 100, Neutrophils % (Manual) 97 H, Band Neutrophils % 1.0, Lymphocytes % (Manual) 1 L, Monocytes % (Manual) 1 L, Platelet Estimate Normal, Poikilocytosis 1+, Stomatocytes 1+ 04/28/19 06:05: Sodium 147 H, Potassium 3.5, Chloride 107, Carbon Dioxide 39 H, Anion Gap 4.5 L, BUN 11 D, Creatinine 0.54 L, Estimated Creat Clear 67, Estima caro GFR 112, Est GFR ( Amer) 136, Glucose 217 H, Calcium 8.0 L 04/28/19 09:12: Specimen Source Right radial, O2 % 2.5, ABG pH 7.44, ABG pCO2 58.7 H, ABG pO2 38.8 L, ABG HCO3 38.6 H, ABG Total CO2 40.4 H, ABG O2 Saturation 80 L*, ABG Base Excess 14.4 H, Jaylen Test Acceptable 04/28/19 11:23: POC Glucose 262 H 04/28/19 17:15: POC Glucose 196 H 04/28/19 18:40: Vancomycin Trough 9.2 L 04/28/19 19:38: POC Glucose 253 H 04/29/19 05:10: POC Glucose 205 H 04/29/19 05:30: WBC 8.2 D, RBC 4.16 L, Hgb 11.7 L, Hct 38.4, MCV 92.5, MCH 28.2, MCHC 30.4 L, RDW 14.0, Plt Count 165, MPV 8.1, Neut % (Auto) 91.9 H, Lymph % (Auto) 4.4 L, [place] % (Auto) 3.6, Eos % (Auto) 0.0 L, Baso % (Auto) 0.0 L, Neut # (Auto) 7.5, Lymph # (Auto) 0.4 L, [place] # (Auto) 0.3, Eos # (Auto) 0.0, Baso # (Auto) 0.0, Total Counted 100, Neutrophils % (Manual) 94 H, Lymphocytes % (Manual) 3 L, Monocytes % (Manual) 3, Platelet Estimate Normal, RBC Morphology Normal 04/29/19 05:30: Sodium 147 H, Potassium 3.6, Chloride 108 H, Carbon Dioxide 36 H , Anion Gap 6.6, BUN 14 D, Creatinine 0.64, Estimated Creat Clear 68, Estimated GFR 92, Est GFR ( Amer) 112, Glucose 234 H, Calcium 8.3 L 04/29/19 11:36: POC Glucose 236 H 04/29/19 16:50: POC Glucose 268 H 04/29/19 20:32: POC Glucose 214 H 04/30/19 05:30: WBC 7.8, RBC 3.90 L, Hgb 10.8 L, Hct 35.8 L, MCV 91.8, MCH 27.6, MCHC 30.1 L, RDW 14.4, Plt Count 140 L, MPV 7.9, Neut % (Auto) 90.3 H, Lymph % (Auto) 5.1 L, [place] % (Auto) 4.5, Eos % (Auto) 0.1, Baso % (Auto) 0.1, Neut # (Auto) 7.0, Lymph # (Auto) 0.4 L, [place] # (Auto) 0.4, Eos # (Auto) 0.0, Baso # (Auto) 0.0, Total Counted 100, Neutrophils % (Manual) 90 H, Lymphocytes % (Manual) 7 L, Monocytes % (Manual) 3, Platelet Estimate Normal, Hypochromasia 1+, Poikilocytosis 1+, Stomatocytes 1+ 04/30/19 05:30: Sodium 150 H, Potassium 3.5, Chloride 107, Carbon Dioxide 37 H, Anion Gap 9.5, BUN 15, Creatinine 0.65, Estimated Creat Clear 67, Estimated GFR 91, Est GFR ( Amer) 110, Glucose 234 H, Calcium 9.1 04/30/19 05:40: POC Glucose 217 H 04/30/19 10:30: Vancomycin Trough 16.8 04/30/19 11:36: POC Glucose 321 H* 04/30/19 17:03: POC Glucose 200 H 04/30/19 18:10: Sodium 146 H, Potassium 4.0, Chloride 105, Carbon Dioxide 38 H, Anion Gap 7.0, BUN 19 H D, Creatinine 0.86 D, Estimated Creat Clear 67, Estimated GFR 66, Est GFR ( Amer) 79 D, Glucose 279 H, Calcium 8.8 04/30/19 20:06: POC Glucose 294 H 05/01/19 06:00: WBC 7.2, RBC 3.89 L, Hgb 10.8 L, Hct 35.8 L, MCV 92.2, MCH 27.8, MCHC 30.2 L, RDW 14.3, Plt Count 137 L, MPV 8.1, Neut % (Auto) 91.6 H, Lymph % (Auto) 5.3 L, [place] % (Auto) 3.0, Eos % (Auto) 0.0 L, Baso % (Auto) 0.1, Neut # (Auto) 6.6, Lymph # (Auto) 0.4 L, [place] # (Auto) 0.2, Eos # (Auto) 0.0, Baso # (Auto) 0.0 05/01/19 06:00: Sodium 146 H, Potassium 4.3, Chloride 106, Carbon Dioxide 37 H, Anion Gap 7.3, BUN 14 D, Creatinine 0.57 D, Estimated Creat Clear 69, Estimated GFR 105, Est GFR ( Amer) 128 D, Glucose 274 H, Calcium 8.9 05/01/19 06:25: POC Glucose 234 H Microbiology Results 04/27/19 11:05 Rectum Miscellaneous Reference Culture - Preliminary 04/26/19 15:22 Blood Blood Culture - Preliminary NO GROWTH AFTER 48 HOURS 04/26/19 15:22 Blood Blood Culture - Preliminary NO GROWTH AFTER 48 HOURS chest x ray: IMPRESSION: Diffuse bilateral ill-defined pneumonic infiltrates representing new findings not seen on the recent chest film of 04/21/2019 Long discussion with patient about the need to wear the trilogy for pressure support patient was able to wear it for 3 hours last p.m. will discharge back to [place] with the trilogy patient states she will try to use it longer. We will continue low-dose of anxiety medicine prior to placing on trilogy to help with anxiety. Patient is going to talk to hospice today. Long discussion about if patient does not use pressure support she will more likely return to the ER and have to be intubated and patient states she will try. Yesterday during the day patient was only able to tolerate trilogy for 10 minutes but last night was able to tolerate for 3 hours. At nursing facility will encourage staff to encourage patient to wear trilogy as long as possible. Patient will be discharged back on a slow taper of steroids, Breo, Zithromax 250 mg to take every other day 3 L nasal cannula and do not increase over 3 L. Objective Vital signs: Temp Pulse Resp BP Pulse Ox 97.8 F 89 20 116/54 L 98 05/01/19 08:00 05/01/19 08:00 05/01/19 08:00 05/01/19 08:00 05/01/19 08:00 no acute distress, chronically ill appearing - *Routine HEENT Exam Head: Present: normocephalic Eye: Present: PERRL ENT: Present: mucous membranes moist - *Routine Neck Exam Present: supple - *Routine Respiratory Exam Present: rhonchi, wheezes - *Routine Cardiovascular Exam Present: RRR - *Routine Abdominal Exam Present: soft, normoactive bowel sounds. Absent: tenderness - *Routine Extremities Exam Present: normal capillary refill. Absent: cyanosis, clubbing, edema - *Routine Skin Exam Present: warm. Absent: rash Comments: Small scab to right cheek - *Routine Neurological Exam Present: alert, oriented X3 - Routine Psychiatric Exam Present: normal affect, normal thought process Results Labs on day of discharge: Labs from last 24 hours 05/01/19 05/01/19 05/01/19 06:25 06:00 06:00 WBC 7.2 RBC 3.89 L Hgb 10.8 L Hct 35.8 L MCV 92.2 MCH 27.8 MCHC 30.2 L RDW 14.3 Plt Count 137 L MPV 8.1 Neut % (Auto) 91.6 H Lymph % (Auto) 5.3 L [place] % (Auto) 3.0 Eos % (Auto) 0.0 L Baso % (Auto) 0.1 Neut # (Auto) 6.6 Lymph # (Auto) 0.4 L [place] # (Auto) 0.2 Eos # (Auto) 0.0 Baso # (Auto) 0.0 Total Counted Neutrophils % (Manual) Lymphocytes % (Manual) Monocytes % (Manual) Platelet Estimate Hypochromasia Poikilocytosis Stomatocytes Sodium 146 H Potassium 4.3 Chloride 106 Carbon Dioxide 37 H Anion Gap 7.3 BUN 14 D Creatinine 0.57 D Estimated Creat Clear 69 Estimated GFR 105 Est GFR ( Amer) 128 D Glucose 274 H POC Glucose 234 H Calcium 8.9 Vancomycin Trough 04/30/19 04/30/19 04/30/19 20:06 18:10 17:03 WBC RBC Hgb Hct MCV MCH MCHC RDW Plt Count MPV Neut % (Auto) Lymph % (Auto) [place] % (Auto) Eos % (Auto) Baso % (Auto) Neut # (Auto) Lymph # (Auto) [place] # (Auto) Eos # (Auto) Baso # (Auto) Total Counted Neutrophils % (Manual) Lymphocytes % (Manual) Monocytes % (Manual) Platelet Estimate Hypochromasia Poikilocytosis Stomatocytes Sodium 146 H Potassium 4.0 Chloride 105 Carbon Dioxide 38 H Anion Gap 7.0 BUN 19 H D Creatinine 0.86 D Estimated Creat Clear 67 Estimated GFR 66 Est GFR ( Amer) 79 D Glucose 279 H POC Glucose 294 H 200 H Calcium 8.8 Vancomycin Trough 0204/30/19 04/30/19 11:36 10:30 05:30 WBC RBC Hgb Hct MCV MCH MCHC RDW Plt Count MPV Neut % (Auto) Lymph % (Auto) [place] % (Auto) Eos % (Auto) Baso % (Auto) Neut # (Auto) Lymph # (Auto) [place] # (Auto) Eos # (Auto) Baso # (Auto) Total Counted 100 Neutrophils % (Manual) 90 H Lymphocytes % (Manual) 7 L Monocytes % (Manual) 3 Platelet Estimate Normal Hypochromasia 1+ Poikilocytosis 1+ Stomatocytes 1+ Sodium Potassium Chloride Carbon Dioxide Anion Gap BUN Creatinine Estimated Creat Clear Estimated GFR Est GFR ( Amer) Glucose POC Glucose 321 H* Calcium Vancomycin Trough 16.8 Preliminary micro results at discharge 04/27/19 11:05 Miscellaneous Reference Culture - Preliminary Rectum 04/26/19 15:22 Blood Culture - Preliminary Blood NO GROWTH AFTER 48 HOURS 04/26/19 15:22 Blood Culture - Preliminary Blood NO GROWTH AFTER 48 HOURS - Additional Comments Rounded with Dr. 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 (11) COPD exacerbation Status: Acute (12) Acute respiratory failure with hypoxia and hypercarbia Status: Acute (13) CO2 narcosis Status: Acute (14) Acute respiratory failure with hypercapnia Status: Acute (15) Tobacco use Status: Chronic Discharge Plan - Patient Discharge Instructions ACTIVITY: Continue current activity DIET: continue same diet Patient Instructions: Chronic Obstructive Pulmonary Disease, Sepsis, DI for Chronic Obstructive Pulmonary Disease, DI for Sepsis -- Adult, DI for Multiple Drug-resistant Organism (MDRO) Infection, DI for Respiratory Failure, Respirator y Failure, How to Use Antibiotics Wisely - Follow up Plan Follow up with: Jarret Dennison MD [Primary Care Provider] - 05/04/19 Disposition: Xfer [facility] Home Medications: Home Medications Medication Instructions Recorded Confirmed Type Calcium Carbonate [Tums 500mg 1,000 mg PO QIDP PRN 07/01/18 04/26/19 History chewtab] Quetiapine Fumarate [Seroquel 25mg 25 mg PO BID 07/01/18 04/26/19 History tablet] Morphine Sulfate [Roxanol 20mg/mL 0.25 ml PO Q4HP PRN 07/02/18 04/26/19 History 1mL oral solution UDC] Budesonide/Formoterol Fumarate 2 puffs IH BID 12/17/18 04/26/19 History [Symbicort 160-4.5 Mcg Inhaler] Gabapentin [Gabapentin 100mg Cap] 100 mg PO TID 12/17/18 04/26/19 History Acetaminophen [Acetaminophen Extra 500 mg PO Q4HP PRN 12/18/18 04/26/19 History Strength] lidocaine 4 % topical patch 1 patch TOPICAL DAILYP PRN 12/24/18 04/26/19 History famotidine 20 mg tablet 20 mg PO DAILY 02/06/19 04/26/19 History Alendronate Sodium [Fosamax 70mg 70 mg PO WEEKLY 04/13/19 04/26/19 History Tablet] Metformin HCl [Metformin ER 500 mg PO DAILY 04/13/19 04/26/19 History Osmotic] Spironolactone [Spironolactone 25 mg PO BID 04/13/19 04/26/19 History 25mg Tablet] Calcium Carbonate [Calcium] 600 mg PO BID 04/20/19 04/26/19 History Cholecalciferol (Vitamin D3) 400 unit PO BID 04/20/19 04/26/19 History [Vitamin D3] Ondansetron [Zofran 4mg ODT] 4 mg PO Q8HP PRN 04/20/19 04/26/19 History Amoxicillin/Potassium Clav 1 tab PO Q12H 04/26/19 04/26/19 History [Augmentin 875-125 Tablet] levoFLOXacin [Levaquin 500mg 500 mg PO DAILY 04/26/19 04/26/19 History tab] predniSONE [Deltasone 20mg 20 mg PO BID 04/26/19 04/26/19 History tablet] Azithromycin [Zithromax 250mg 250 mg PO DIRECTED 30 Days #15 05/01/19 Rx tab] tab Buspirone HCl [Buspar 5mg tablet] 5 mg PO TID 30 Days #90 tab 05/01/19 Rx Ipratropium/Albuterol Sulfate 3 ml IH Q4RT 30 Days #120 ampul.neb 05/01/19 Rx [Duoneb 3mL neb] LORazepam [Ativan 0.5mg 0.25 mg PO BID 30 Days #60 tablet 05/01/19 Rx tablet] predniSONE [Deltasone 10mg tablet] 10 mg PO DIRECTED 12 Days #25 05/01/19 Rx tab Prescriptions/Medication Reconciliation: New LORazepam [Ativan 0.5mg tablet] 0.25 mg PO BID 30 Days #60 tablet Buspirone HCl [Buspar 5mg tablet] 5 mg PO TID 30 Days #90 tab predniSONE [Deltasone 10mg tablet] 10 mg PO DIRECTED 12 Days #25 tab Ipratropium/Albuterol Sulfate [Duoneb 3mL neb] 3 ml IH Q4RT 30 Days #120 ampul.neb Azithromycin [Zithromax 250mg tab] 250 mg PO DIRECTED 30 Days #15 tab Continued lidocaine 4 % topical patch 1 patch TOPICAL DAILYP PRN PRN Reason: back pain famotidine 20 mg tablet 20 mg PO DAILY Quetiapine Fumarate [Seroquel 25mg tablet] 25 mg PO BID Calcium Carbonate [Tums 500mg chewtab] 1,000 mg PO QIDP PRN PRN Reason: Heartburn Gabapentin [Gabapentin 100mg Cap] 100 mg PO TID Alendronate Sodium [Fosamax 70mg Tablet] 70 mg PO WEEKLY Calcium Carbonate [Calcium] 600 mg PO BID Ondansetron [Zofran 4mg ODT] 4 mg PO Q8HP PRN PRN Reason: Nausea Budesonide/Formoterol Fumarate [Symbicort 160-4.5 Mcg Inhaler] 2 puffs IH BID Acetaminophen [Acetaminophen Extra Strength] 500 mg PO Q4HP PRN PRN Reason: PAIN Spironolactone [Spironolactone 25mg Tablet] 25 mg PO BID Metformin HCl [Metformin ER Osmotic] 500 mg PO DAILY Cholecalciferol (Vitamin D3) [Vitamin D3] 400 unit PO BID Discontinued Morphine Sulfate [Roxanol 20mg/mL 1mL oral solution UDC] 0.25 ml PO Q4HP PRN PRN Reason: PAIN predniSONE [Deltasone 20mg tablet] 20 mg PO BID levoFLOXacin [Levaquin 500mg tab] 500 mg PO DAILY Amoxicillin/Potassium Clav [Augmentin 875-125 Tablet] 1 tab PO Q12H - Problem Reconciliation Problems Reviewed?: Yes
[2019-05-01 09:36] LABS: Lymphocytes % 3 % (10-50); Monocytes % 4 % (2-9); Neutrophils % 93 % (42-76); Total Cells Counted 100
[2019-05-01 09:42] LABS: Hypochromasia 1+
== END 2019-05-01 15:45 | DRG 189 ==
LOC: ER 14:58 → 2ND 17:53
PROVIDERS: ADMIT Internal Medicine Adolescent Medicine; ATTEND Emergency Medicine
CPT/HCPCS: 36415; 71010; 71045; 80048; 80053; 80202; 81001; 82803; 82962; 83605; 83735; 84484; 85007; 85025; 87040; 87275; 87276; 93005; 94640; 94660; 94760; 94761; 96365; 96367; 96375; 97162; 97166; 97530; 99285; J1956; J2310; J3370

== ENCOUNTER → 2019-06-04 12:55 | Outpatient (CLI) | payer MEDICARE, MEDICAID, SELFPAY ==
--- NOTE | 2019-06-04 13:01 | CT_ITS ---
PROCEDURE: CT CHEST WO CON CLINICAL INDICATION: LUNG ABNORMALITY Follow-up abnormal chest CT, shortness of breath, pulmonary fibrosis, emphysema COMPARISON: CT CHEST WO CON from 03/05/2019 TECHNIQUE: Axial images obtained with sagittal and coronal reformats. All CT scans at the facility use one or more dose reduction, viz: automated exposure control, ma/kV adjustment per patient size (including targeted exams where dose is matched to indication, i.e. head), or iterative reconstruction technique. FINDINGS: HEART AND MEDIASTINAL STRUCTURES: No mediastinal or hilar mass or adenopathy. Coronary artery calcifications are present. LUNGS AND PLEURAL SPACES: Centrilobular emphysema with scattered areas of fibrotic change/scarring. Irregular peripheral opacity once again noted in the right upper lobe a which does not appear significantly changed consistent with postinflammatory fibrotic changes/scarring. Calcified granuloma is present in the right lung base. There are atelectatic changes in both lower lobes which have developed since the previous exam BONY STRUCTURES: There is generalized osteopenia. Sclerosis has developed involving the in plates at T6 and T 5 with mild wedging of T6 and minimal wedging of T5. UPPER ABDOMEN: Unremarkable. ADDITIONAL FINDINGS: No other significant abnormalities. IMPRESSION: 1. Overall no significant change in the peripheral parenchymal/subpleural opacity in the right upper lobe which may represent postinflammatory fibrotic changes. 6-12 month follow-up suggested 2. Centrilobular emphysema with scattered areas of scarring with atelectasis in the lower lobes posteriorly. 3. Healing compression deformities at T5-T6 Dictated by: Jaylen Valentin MD 06/05/2019 11:18 Electronically signed by Jaylen Valentin MD in [place] 06/05/2019 11:18
== END ==
PROVIDERS: PCP Emergency Medicine; Visit Provider Emergency Medicine
DX: R91.8 Other nonspecific abnormal finding of lung field (principal); J44.9 Chronic obstructive pulmonary disease, unspecified
CPT/HCPCS: 71250

== ENCOUNTER 2019-10-09 13:36 | Emergency (ER) | payer MEDICARE, MEDICAID, SELFPAY ==
[2019-10-09 13:36] VITALS: BP 134/78; PULSE 71; RESP 18; TEMP 36.8; O2SAT 100; BMI 32.9
--- NOTE | 2019-10-09 14:16 | HMH.EDHA ---
ED Disposition Clinical Impression: Sinusitis Disposition: Home, Self-Care Condition on Discharge: Good Instructions: Sinus Headache Prescriptions: Amoxicillin [Amoxicillin 875MG Tab] 875 mg PO Q12H 10 Days #20 tab Transmission Status: Pending to [facility] - Critical Care Critical Care Time: No Attestation: On , the high probability of a clinically significant, sudden or life threatening deterioration of the following system(s) required my full and direct attention, intervention and personal management. The time I documented below is in addition to time spent performing reported procedures but includes the following listed in this critical care notation. Medical Decision Making - Medical Records Medical records reviewed: Yes: I reviewed the patient's medical records. - José Miguel Inquiry Pt receiving controlled substance: No Vital Signs: 10/09/19 13:36 Temperature 98.2 F Temperature Source Oral Pulse Rate [Right] 71 Respiratory Rate 18 Blood Pressure [Right Arm] 134/78 Blood Pressure Mean [Right Arm] 96 02 Sat by Pulse Oximetry 100 - Lab Data Lab results reviewed: Yes: I reviewed the patient's lab results. Headache HPI - General Chief Complaint: Headache Stated Complaint: AMS Time Seen by Provider: 10/09/19 14:16 Mode of Arrival: EMS Source of Information: Patient Limitations: No Limitations Description of Symptoms (Recalled from ER Triage Doc. by RN): c/O MORROW after having a COVID nasal swab yesterday, denies any other s/s. - History of Present Illness HPI Narrative: 69-year-old female presents the emergency department with facial pain and frontal pain in her head. She states that this pain started after she had a COVID swab done yesterday. Nonetheless patient does state that she is congested and she is has the facial pain. Patient does state that this pain is about 3 out of 10 and classifies it as a pressure-like/sharp sensation. She does not describe any alleviating or exacerbating factors.Patient denies any recent cough or shortness of breath, patient denies any sore throat or headache, patient denies any loss of taste or smell, patient denies any malaise or fatigue, patient denies any abdominal pain nausea vomiting or diarrhea. - Related Data Home Medications Medication Instructions Recorded Confirmed Calcium Carbonate [Tums 500mg 1,000 mg PO QIDP PRN 07/01/18 09/06/19 chewtab] Quetiapine Fumarate [Seroquel 25mg 25 mg PO BID 07/01/18 09/06/19 tablet] Budesonide/Formoterol Fumarate 2 puffs IH BID 12/17/18 09/06/19 [Symbicort 160-4.5 Mcg Inhaler] Gabapentin [Gabapentin 100mg Cap] 100 mg PO TID 12/17/18 09/06/19 Acetaminophen [Acetaminophen Extra 500 mg PO Q4HP PRN 12/18/18 09/06/19 Strength] lidocaine 4 % topical patch 1 patch TOPICAL DAILYP PRN 12/24/18 09/06/19 famotidine 20 mg tablet 20 mg PO DAILY 02/06/19 09/06/19 Alendronate Sodium [Fosamax 70mg 70 mg PO WEEKLY 04/13/19 09/06/19 Tablet] Metformin HCl [Metformin ER 500 mg PO DAILY 04/13/19 09/06/19 Osmotic] Spironolactone [Spironolactone 25 mg PO BID 04/13/19 09/06/19 25mg Tablet] Calcium Carbonate [Calcium] 600 mg PO BID 04/20/19 09/06/19 Cholecalciferol (Vitamin D3) 400 unit PO BID 04/20/19 09/06/19 [Vitamin D3] Ondansetron [Zofran 4mg ODT] 4 mg PO Q8HP PRN 04/20/19 09/06/19 buspirone 5 mg tablet 5 mg PO BID tab 08/14/19 09/06/19 Previous Rx's Medication Instructions Recorded Ipratropium/Albuterol Sulfate 3 ml IH Q4RT 30 Days #120 ampul.neb 05/01/19 [Duoneb 3mL neb] LORazepam [Ativan 0.5mg 0.25 mg PO BID 30 Days #60 tab 05/01/19 tablet] Albuterol Sulfate [Albuterol 2.5 mg IH Q2H PRN #90 ml 05/04/19 0.083% 2.5mg/3mL neb] hydrocodone 5 mg-acetaminophen 325 1 tab PO BID PRN #60 tab 08/25/19 mg tablet Amoxicillin [Amoxicillin 875MG 875 mg PO Q12H 10 Days #20 tab 10/09/19 Tab] Allergies Allergy/AdvReac Type Severity Reaction Status
--- NOTE | 2019-10-09 14:23 | PC.NURSE ---
[facility] is aware pt is ready for discharge. They will be sending someone up.
[2019-10-09 16:21] VITALS: BP 162/65; PULSE 74; RESP 16; TEMP 36.6; O2SAT 98
== END 2019-10-09 16:23 | disposition home or self-care (01) ==
PROVIDERS: Emergency Provider Family Medicine
DX: J01.90 Acute sinusitis, unspecified (principal); I50.9 Heart failure, unspecified; J44.9 Chronic obstructive pulmonary disease, unspecified; E11.9 Type 2 diabetes mellitus without complications; E78.5 Hyperlipidemia, unspecified; Z87.891 Personal history of nicotine dependence; Z79.899 Other long term (current) drug therapy
CPT/HCPCS: 99281

== ENCOUNTER 2019-11-20 17:51 | Inpatient (IN) | payer MEDICARE, MEDICAID, SELFPAY ==
[2019-11-20] VITALS (7 sets, daily range): BP systolic 139–152; BP diastolic 58–74; PULSE 95–110; RESP 17–20; TEMP 36.7–37.3; O2SAT 88–99; BMI 25.0; BMI 29.5
--- NOTE | 2019-11-20 17:57 | CT_ITS ---
PROCEDURE: CT HEAD/BRAIN WO CON CLINICAL INDICATION: ams Altered mental status, altered level of consciousness, confusion, disorientation COMPARISON: CT HDWO CT HEAD WITHOUT CONTRAST from 05/26/2012 TECHNIQUE: Axial images obtained. All CT scans at the facility use one or more dose reduction, viz: automated exposure control, ma/kV adjustment per patient size (including targeted exams where dose is matched to indication, i.e. head), or iterative reconstruction technique. FINDINGS: No midline shift, mass effect, intracranial hemorrhage, hydrocephalus, or extra-axial fluid collection is evident. There is a small calcific density in the region of the left CP angle. This measures approximately 5 mm. The calvarium has an unremarkable appearance. No mastoid effusion. There is mucosal thickening involving the left and posterior aspect of the ethmoid sinus. IMPRESSION: 1. No acute intracranial findings. 2. Small calcific density in the left CP angle. This is nonspecific without mass effect and may be better evaluated with outpatient MRI without and with enhancement. 3. Mild left ethmoid sinus disease Dictated by: Jaylen Valentin MD 11/20/2019 19:12 Jaylen Valentin MD in [place] 11/20/2019 19:12
--- NOTE | 2019-11-20 17:57 | XR_ITS ---
PROCEDURE: XR CHEST PORTABLE CLINICAL HISTORY: ams Shortness of breath, former smoker COMPARISON: CR XR CHEST PORTABLE from 04/21/2019 CR XR CHEST PORTABLE from 04/26/2019 CR XR CHEST PORTABLE from 05/04/[address] CHEST WO CON from 06/04/2019 FINDINGS: The cardiomediastinal silhouette and pulmonary vascularity are within normal limits. Chronic interstitial lung disease is noted. There is increased density in the right upper lobe medially. This may be related to pneumonia, volume loss, progressive fibrotic change or neoplasm. Chest CT with contrast may provide further evaluation. No acute bony abnormalities. IMPRESSION: Chronic interstitial changes with increasing density in the right upper lobe which may be related to pneumonia, volume loss, progressive fibrotic change or neoplasm. Follow-up suggested Dictated by: Jaylen Valentin MD 11/20/2019 18:52 Jaylen Valentin MD in [place] 11/20/2019 18:52
--- NOTE | 2019-11-20 18:02 | PC.NURSE ---
pt gone to ct
--- NOTE | 2019-11-20 18:03 | PC.NURSE ---
PT PRESENTS BY EMS ON 10 LPM VIA NON REBREATHER O2 SAT 100% , EMS STATES HER SATS WERE 71% ON 2 LPM AT THE INTERMEDIATE. PT HAS AMS NOT ANSWERING ANY OF MY QUESTIONS PT SENT ON UP FOR HEAD CT FOR STROKE PROTOCOL , O2 DECREASED TO 5 LPM VIA CANNULA O2 SATS 98%. SKIN WARM PINK AND DRY
--- NOTE | 2019-11-20 18:32 | PC.NURSE ---
RESP NOTIFIED OF LALITHA SCHNEIDER ADVISED THEM TO WAIT TILL ANTIBODY TESTING IS BACK
--- NOTE | 2019-11-20 18:42 | HMH.EDAMS ---
ED Disposition Clinical Impression: Hypoxia Right upper lobe pneumonia Qualifiers: Aspiration pneumonia type: unspecified Disposition: Admitted As Inpatient Condition on Discharge: Fair Instructions: DI for Altered Mental Status Referrals: Jarret Dennison MD [Primary Care Provider] - - Critical Care Critical Care Time: No Attestation: On 11/20/19, the high probability of a clinically significant, sudden or life threatening deterioration of the following system(s) required my full and direct attention, intervention and personal management. The time I documented below is in addition to time spent performing reported procedures but includes the following listed in this critical care notation. Medical Decision Making - Medical Records Medical records reviewed: Yes: I reviewed the patient's medical records. - José Miguel Inquiry Pt receiving controlled substance: No Vital Signs: 11/20/19 17:52 Temperature 98.0 F Temperature Source Oral Pulse Rate [Left Radial] 98 H Respiratory Rate 17 Blood Pressure [Right Arm] 139/69 Blood Pressure Mean [Right Arm] 92 Blood Pressure Source [Right Arm] Automatic Cuff Blood Pressure Position [Right Arm] Sitting 02 Sat by Pulse Oximetry 99 Oxygen Delivery Method Room Air - Lab Data Lab Results 11/20/19 18:27: WBC 8.6, RBC 4.11 L, Hgb 12.3, Hct 38.5, MCV 93.5, MCH 29.8, MCHC 31.8, RDW 14.0, Plt Count 209, MPV 8.0, Neut % (Auto) 77.4, Lymph % (Auto) 14.6, [place] % (Auto) 6.3, Eos % (Auto) 1.3, Baso % (Auto) 0.4, Neut # (Auto) 6.6, Lymph # (Auto) 1.3, [place] # (Auto) 0.5, Eos # (Auto) 0.1, Baso # (Auto) 0.0 11/20/19 18:27: Sodium 142, Potassium 5.2 H, Chloride 92 L, Carbon Dioxide 44 H*, Anion Gap 11.2, BUN 15, Creatinine 0.70, Estimated Creat Clear 58, Estimated GFR 83, Est GFR ( Amer) 101, Glucose 170 H, Calcium 9.5, Troponin I < 0.01 11/20/19 18:27: Lactate 0.5 L 11/20/19 18:27: SARS-CoV-2 IgG Ab (Rapid) Negative, SARS-CoV-2 IgM Ab (Rapid) Negative 11/20/19 18:45: Urine Color Yellow, Urine Appearance Clear, Urine pH 6.0, Ur Specific Roland >= 1.030, Urine Protein Trace, Urine Glucose (UA) Negative, Urine Ketones Negative, Urine Blood Negative, Urine Nitrate Negative, Urine Bilirubin Negative, Urine Urobilinogen 0.2, Ur Leukocyte Esterase Negative, Urine WBC 3-5, Ur Squamous Epith Cells 3-5, Amorphous Sediment Trace, Urine Mucus 1+ Result diagrams: 11/20/19 18:27 11/20/19 18:27 Orders (Tests/Meds): ED MEDICATIONS Generic Name Dose Route Start Last Admin Trade Name Freq PRN Reason Stop Dose Admin Azithromycin 500 mg/ Sodium 250 mls @ 250 mls/hr 11/20/19 18:30 11/20/19 18:34 Chloride IV 12/04/19 18:29 250 mls/hr Q24H TRACEY Administration Protocol Ceftriaxone Sodium 1 gm/ 50 mls @ 100 mls/hr 11/20/19 18:30 11/20/19 18:35 Sodium Chloride IV 12/04/19 18:29 100 mls/hr Q24H TRACEY Administration Protocol Discontinued Medications Generic Name Dose Route Start Last Admin Trade Name Freq PRN Reason Stop Dose Admin Albuterol/Ipratropium 3 ml 11/20/19 18:29 Duoneb 3ml Neb IH 11/20/19 18:30 ONCE ONE Methylprednisolone Sodium Succinate 125 mg 11/20/19 18:25 11/20/19 18:33 Solu-Medrol 125mg/2ml Vial IV 11/20/19 18:26 125 mg ONCE ONE Administration ORDERS Category Date Time Status CT chest w con Stat Cat Scan 11/20/19 19:18 Ordered Troponin I Q3H Lab 11/20/19 21:00 Ordered Troponin I Q3H Lab 11/21/19 00:00 Ordered Blood Culture Stat Micro 11/20/19 18:27 Received Medical Decision Narrative: 69-year-old female presenting with altered mental status and new oxygen requirement. Neuro intact and nonfocal here. Nontoxic, afebrile, hemodynamically stable. Requiring 5 L up from 3.5 at baseline. Chest x-ray shows right upper lobe pneumonia. White blood cell count, creatinine, electrolytes are within normal limits. Patient was started on 1 g of IV Rocephin and 500 mg of IV Zithromax for pneumonia coverage. Bl
[2019-11-20 18:43] LABS: Basophils % 0.4 % (0.1-2.0); Chloride 92 mmol/L (98-107); Eosinophils # 0.1 K/mm3 (0.0-0.4); Eosinophils % 1.3 % (0.1-12.0); Hematocrit 38.5 % (37.0-47.0); Hemoglobin 12.3 g/dL (12.2-16.2); Lymphocytes # 1.3 K/mm3 (0.7-4.5); Lymphocytes % 14.6 % (10-50); Mean Corpuscular HGB Conc 31.8 g/dL (31.8-35.4); Mean Corpuscular Hemoglobin 29.8 pg (27.0-31.2); Mean Corpuscular Volume 93.5 fl (81-99); Monocytes # 0.5 K/mm3 (0.1-1.0); Monocytes % 6.3 % (1.7-9.3); Neutrophils # 6.6 K/mm3 (1.8-7.8); Neutrophils % 77.4 % (37.0-80.0); Platelet Count 209 K/mm3 (142-424); Potassium 5.2 mmoL/L (3.5-5.1); Red Blood Count 4.11 M/mm3 (4.20-5.40); Sodium 142 mmol/L (136-145); White Blood Count 8.6 K/mm3 (4.8-10.8)
[2019-11-20 18:46] LABS: Blood Urea Nitrogen 15 mg/dl (7-17); Calcium 9.5 mg/dl (8.4-10.2); Creatinine Clearance Estimated 58 mL/min (50-200); Estimated Glomerular Filt Rate 83 ml/min (>60); GFR (African American) 101 ML/MIN (>60); Glucose 170 mg/dl (74-100)
[2019-11-20 18:47] LABS: Lactic Acid 0.5 mmol/L (0.7-2.1)
[2019-11-20 18:52] LABS: Microscopic, Urine URINE MICROSCOPIC (MICROSCOPIC)
[2019-11-20 18:55] LABS: Appearance,Urine CLEAR (Clear); Bilirubin,Urine Negative (Negative); Blood, Urine Negative (Negative); Color,Urine YELLOW (Yellow); Glucose,Urine (UA) Negative (Negative); Ketones,Urine Negative (Negative); Leukocyte Esterase,Urine Negative (Negative); Nitrate,Urine Negative (Negative); Protein,Urine TRACE (Negative); Specific Gravity, Urine >= 1.030 (1.005-1.030); Urobilinogen,Urine 0.2 EU/dl (0.2)
[2019-11-20 18:58] LABS: Amorphous Sediment,Urine Trace /lpf; Mucus,Urine 1+ /lpf
[2019-11-20 18:59] LABS: Anion Gap 11.2 mEq/L (5-15); Carbon Dioxide 44 mmol/L (22.0-30.0); Troponin I < 0.01 ng/ml (0.00-0.034)
--- NOTE | 2019-11-20 19:18 | CT_ITS ---
PROCEDURE: CT CHEST W CON CLINCAL INDICATION: SOA Shortness of air, previous smoker, abnormal chest x-ray suggesting right upper lobe mass or consolidation. COMPARISON: CT AGCHEST CT angio chest from 07/11/[address] CHEST WO CON from 06/04/2019 TECHNIQUE: IV Contrast: 75ml Optiray 350 Axial images obtained with sagittal and coronal reformats. All CT scans at the facility use one or more dose reduction, viz: automated exposure control, ma/kV adjustment per patient size (including targeted exams where dose is matched to indication, i.e. head), or iterative reconstruction technique. FINDINGS: No mediastinal or hilar mass or adenopathy. No evidence of aortic aneurysm, dissection, or central pulmonary embolus. Motion artifact does obscure fine detail evaluation of the pulmonary structures. There are centrilobular emphysema changes with pulmonary fibrosis. There is right apical pleural thickening with calcification not significantly changed. No new apical mass or consolidation is evident. Atelectatic changes are present in the right upper lobe inferiorly. Consolidation is present in the left lower lobe posteriorly which has developed since the previous exam. There is overall increased prominence of the interlobular septal thickening with faint mosaic attenuation of the lungs. Some of this may be due to the motion artifact. Progressive pulmonary fibrosis with underlying edema is also consideration. There is stable compression fracture of T6 IMPRESSION: 1. Continued right upper lobe fibronodular scarring with some calcification not significantly changed. No new apical mass evident 2. Centrilobular emphysema with pulmonary fibrosis. There has been increase in interlobular septal thickening is a continuation of the lungs which could be related to progressive pulmonary fibrosis with a background of pulmonary edema 3. Atelectatic changes in the right upper lobe with new area of consolidation in the left lower lobe posteriorly Dictated by: Jaylen Valentin MD 11/21/2019 07:51 Jaylen Valentin MD in [place] 11/21/2019 07:51
[2019-11-20 19:23] LABS: Coronavirus 19 IgG Antibody Negative (Negative); Coronavirus 19 IgM Antibody Negative (Negative)
[2019-11-20 21:30] LABS: Troponin I < 0.01 ng/ml (0.00-0.034)
--- NOTE | 2019-11-20 22:03 | PC.NURSE ---
patient up to floor via stretcher.
[2019-11-21] VITALS (17 sets, daily range): BP systolic 111–137; BP diastolic 41–70; PULSE 81–111; RESP 20–28; TEMP 36.3–37.3; O2SAT 88–96; BMI 29.9
--- NOTE | 2019-11-21 03:06 | PC.NURSE ---
A&OX4. PT HAS TOLERATED 4L NC WELL THROUGHOUT SHIFT. OCCASIONAL WET NONPRODUCTIVE COUGH NOTED. WHEEZES NOTED THROUGHOUT LUNGS. PT HAS REMAINED ON TELE THROUGHOUT SHIFT. SINUS TACHYCARDIA NOTED. HAND BALLISTICS TESTER EQUAL. +2 PULSES NOTED. NO EDEMA NOTED. TEDS ON. ACTIVE BOWEL SOUNDS HEARD IN ALL 4 QUADRANTS. SOFT AND NONTENDER ABDOMEN. NO BM THUS FAR. COY CATHETER IN PLACE W YELLOW URINE FLOWING FREELY INTO COLLECTION BAG. NO KINKS NOTED. PT MOVES INDEPENDENTLY IN BED. NO REPORTS OF PAIN THUS FAR. PT HAS REMAINED AFEBRILE THUS FAR. PT HAS RESTED WELL TONIGHT. PT IS CURRENTLY LYING IN BED WATCHING TV. CALL LIGHT WITHIN REACH. BED IN LOWEST POSITION. VSS. WILL CONTINUE TO MONITOR.
[2019-11-21 05:43] LABS: POC Glucose,Bedside 193 (70-110)
--- NOTE | 2019-11-21 09:12 | HMH.PHAINT ---
HOME MEDICATIONS RECONCILED FROM MAY.
--- NOTE | 2019-11-21 09:14 | HMH.PHAVTE ---
[facility] Pharm[facility] VTE Monitoring - Patient Demographics Admission date: 11/20/19 Report Date: 11/21/19 Time: 09:14 Allergies/Adverse Reactions: Patient Allergies orange juice Allergy (Mild, Verified 09/06/19 16:49) Rash Height: 1.65 m Weight: 81.391 kg Patient Problems: Current Active Problems Right upper lobe pneumonia (Acute) Hypoxia (Acute) - VTE Risk Labs: VTE Related Lab Results Hgb 12.3 g/dL (12.2-16.2) 11/20/19 18:27 Hct 38.5 % (37.0-47.0) 11/20/19 18:27 Plt Count 209 K/mm3 (142-424) 11/20/19 18:27 BUN 15 mg/dl (7-17) 11/20/19 18:27 Creatinine 0.70 mg/dl (0.52-1.04) 11/20/19 18:27 Estimated Creat Clear 58 mL/min (50-200) 11/20/19 18:27 VTE Score: 5 VTE Risk Level: Low Risk - Prophylaxis VTE Prophylaxis Ordered?: Yes Types of VTE Prophylaxis: TEDS Knee High Location of Applied Device: Bilateral Lower Extremeties
--- NOTE | 2019-11-21 12:13 | HMH.HP ---
*Admission Date: 11/20/19 *Chief complaint: pneumonia and hypoxia *History of present illness: 69-year-old female presenting with altered mental status and new oxygen requirement. Neuro intact and nonfocal here. Nontoxic, afebrile, hemodynamically stable. Requiring 5 L up from 3.5 at baseline. Chest x-ray shows right upper lobe pneumonia. White blood cell count, creatinine, electrolytes are within normal limits. Patient was started on 1 g of IV Rocephin and 500 mg of IV Zithromax for pneumonia coverage. Blood cultures are pending. Spoke to the PCP who agreed to admit the patient for further work-up and management given her new oxygen requirement and report of altered mental status, although she was GCS 15 here. Is a 69-year-old female [facility] resident presenting for altered mental status. Patient was more somnolent today. She also relates global weakness and dropping things in both hands today. She is also had an increased oxygen requirement from 3-1/2 L to 5 L. No fever, chills, nausea, vomiting, chest pain, cough, shortness of breath, abdominal pain, urinary symptoms. Patient is otherwise a poor historian so further history and review of systems is limited. per ER physician Workup has included cxr/ct chest/ct brain IMPRESSION: 1. Continued right upper lobe fibronodular scarring with some calcification not significantly changed. No new apical mass evident 2. Centrilobular emphysema with pulmonary fibrosis. There has been increase in interlobular septal thickening is a continuation of the lungs which could be related to progressive pulmonary fibrosis with a background of pulmonary edema 3. Atelectatic changes in the right upper lobe with new area of consolidation in the left lower lobe posteriorly IMPRESSION: 1. No acute intracranial findings. 2. Small calcific density in the left CP angle. This is nonspecific without mass effect and may be better evaluated with outpatient MRI without and with enhancement. 3. Mild left ethmoid sinus disease started on iv azith/rocephin [facility] History Medical History: Reports:: Anxiety, Congestive Heart Failure, Chronic Obstructive Pulmonary Disease (COPD), Diabetes Mellitus Type 2, Hyperlipidemia, Hypertension Denies:: Cancer, Diabetes Mellitus Type 1, Internal Pacemaker, MRSA *Have you ever received a pneumonia vaccine?: Yes *Have you received a flu vaccine this season?: Yes Other Medical History: Reports: Arthritis, Sinus Problems Other Surgeries: Yes: No Previous Surgery, Colonoscopy, . No: Pacemaker Amputation: No Fractures: No - *Social History Last grade of school completed: 7th or 8th Smoking Status: Former smoker Tobacco Type: cigarettes # Packs/Day (cigarettes): 1 #Yrs smoked (if former smoker): 50 Alcohol Intake: never Alcohol Intake Frequency:: 3 or more drinks per day Substance Use Type: denies use *Occupational Status:: disabled Housing: [facility]hold Members: other *Travel in the last 8 weeks: None - Psychiatric History Pschychiatric History:: Reports:: Anxiety, Bipolar Disorder Family Hx:: Unable to obtain Review of Systems - Constitutional Reports weakness - Eyes Denies change in vision - ENT Denies difficulty swallowing, Denies headache(s), Denies throat swelling, Denies tongue swelling - *Cardiovascular Reports shortness of breath, Reports shortness of breath with activity, Denies chest pain, Denies chest pain at rest, Denies chest pain with activity, Denies leg swelling - *Respiratory Reports chest congestion, Reports shortness of breath - *Gastrointestinal Denies abdominal pain, Denies coffee ground vomit, Denies bright, red blood in stools - *Genitourinary Denies difficulty urinating, Denies painful urination - *Musculoskeletal Reports decreased muscle mass, Reports muscle weakness - Integumentary/Breasts Denies yellowing of the skin - *Neurologic Reports unsteadiness, Reports weakness -
[2019-11-21 13:05] LABS: Basophils % 0.1 % (0.1-2.0); Eosinophils % 0.1 % (0.1-12.0); Hematocrit 34.1 % (37.0-47.0); Lymphocytes # 0.9 K/mm3 (0.7-4.5); Lymphocytes % 9.9 % (10-50); Mean Corpuscular HGB Conc 31.2 g/dL (31.8-35.4); Mean Corpuscular Hemoglobin 29.5 pg (27.0-31.2); Mean Corpuscular Volume 94.7 fl (81-99); Monocytes # 0.5 K/mm3 (0.1-1.0); Monocytes % 5.3 % (1.7-9.3); Neutrophils # 7.8 K/mm3 (1.8-7.8); Neutrophils % 84.7 % (37.0-80.0); Platelet Count 186 K/mm3 (142-424); Red Cell Distribution Width 13.6 % (11.5-17.5); White Blood Count 9.2 K/mm3 (4.8-10.8)
[2019-11-21 13:10] LABS: Chloride 91 mmol/L (98-107); Potassium 4.4 mmoL/L (3.5-5.1); Sodium 140 mmol/L (136-145)
[2019-11-21 13:13] LABS: Blood Urea Nitrogen 17 mg/dl (7-17); Creatinine Clearance Estimated 69 mL/min (50-200); Estimated Glomerular Filt Rate 99 ml/min (>60); GFR (African American) 120 ML/MIN (>60)
[2019-11-21 13:14] LABS: Calcium 9.3 mg/dl (8.4-10.2); Glucose 239 mg/dl (74-100); Hemoglobin 10.6 g/dL (12.2-16.2)
[2019-11-21 13:22] LABS: Anion Gap 12.4 mEq/L (5-15)
[2019-11-21 13:23] LABS: Carbon Dioxide 41 mmol/L (22.0-30.0)
--- NOTE | 2019-11-21 16:22 | PC.NURSE ---
Pt has been pleasant and cooperative this shift. A&O X4. No complaints of pain or SOA. Pt is currently receiving O2 via NC @ 3 LPM and sats. are noted to be >88%. Skin is C/D/I with no edema noted. Lung sounds reveal expiratory wheezing. F/C patent and draining clear, yellow urine at bedside to gravity. Pt instructed to try to produce a sputum specimen and specimen cup is at bedside. No BM this shift. Telemetry reveals NSR. 20 G peripheral IV in the LT AC is patent and SL. Pt refused 1100 FSBS check. 1630 FSBS result noted to be 266. Albert hose in place to BLE. VSS. Call light within reach. Will continue to monitor.
[2019-11-21 16:50] LABS: POC Glucose,Bedside 266 (70-110)
[2019-11-21 20:26] LABS: POC Glucose,Bedside 267 (70-110)
[2019-11-22] VITALS (17 sets, daily range): BP systolic 93–127; BP diastolic 47–64; PULSE 78–120; RESP 18–22; TEMP 36.7–37.2; O2SAT 88–94; BMI 30.4
--- NOTE | 2019-11-22 05:34 | INFXCTL.NOTE ---
shift summary, pt has been awake t/o shift, no complaints of SOA, remains on 3 L NC, urias catheter in place, draining clear, yellow urine
[2019-11-22 06:17] LABS: POC Glucose,Bedside 267 (70-110)
--- NOTE | 2019-11-22 06:34 | PC.NURSE ---
shift summary, pt has stayed awake t/o shift, no complaints of SOA, urias catheter in place and draining clear, yellow urine
[2019-11-22 11:36] LABS: POC Glucose,Bedside 262 (70-110)
--- NOTE | 2019-11-22 12:21 | XR_ITS ---
PROCEDURE: XR CHEST 2V CLINICAL HISTORY: pneumonia COMPARISON: CR XR CHEST PORTABLE from 04/26/2019 CR XR CHEST PORTABLE from 05/04/2019 CR XR CHEST PORTABLE from 11/20/[address] CHEST W CON from 11/20/2019 FINDINGS: The cardiomediastinal silhouette and pulmonary vascularity are within normal limits. This is a somewhat poor inspiratory effort and there is chronic reticular nodular interstitial markings in both lung [place]ol[place] but with relative sparing of the left upper lobe. The findings are basically stable unchanged from recent chest films, I see no definite superimposed acute infiltrate. There is minimal blunting of left costophrenic angle and a small pleural effusion cannot be excluded. Partially calcified left hilar nodes. IMPRESSION: Chronic interstitial fibrotic changes with low lung volumes bilaterally, questionable small left pleural effusion Dictated by: Dr. Osvaldo Contreras MD 11/22/2019 13:59 Dr. Osvaldo Contreras MD in [place] 11/22/2019 13:59
--- NOTE | 2019-11-22 12:26 | HMH.ACPN2 ---
Internal Medicine - PN: Subj *Date: 11/22/19 *Time: 12:29 Interval history: uneventful night per pt afeb sats lower during the night no distress today alert/clear/lucid Exam Vital signs and Labs for Last 24 Hours: Temp Pulse Resp BP Pulse Ox 98.0 F 111 H 22 127/57 L 88 L 11/22/19 08:00 11/22/19 08:00 11/22/19 08:00 11/22/19 08:00 11/22/19 08:00 Laboratory Results - last 24 hr 11/21/19 12:50: WBC 9.2, RBC 3.60 L, Hgb 10.6 L D, Hct 34.1 L, MCV 94.7, MCH 29.5, MCHC 31.2 L, RDW 13.6, Plt Count 186, MPV 9.0, Neut % (Auto) 84.7 H, Lymph % (Auto) 9.9 L, [place] % (Auto) 5.3, Eos % (Auto) 0.1, Baso % (Auto) 0.1, Neut # (Auto) 7.8, Lymph # (Auto) 0.9, [place] # (Auto) 0.5, Eos # (Auto) 0.0, Baso # (Auto) 0.0 11/21/19 12:50: Sodium 140, Potassium 4.4, Chloride 91 L, Carbon Dioxide 41 H*, Anion Gap 12.4, BUN 17, Creatinine 0.60, Estimated Creat Clear 69, Estimated GFR 99, Est GFR ( Amer) 120, Glucose 239 H D, Calcium 9.3 11/21/19 16:39: POC Glucose 266 H 11/21/19 20:18: POC Glucose 267 H 11/22/19 05:56: POC Glucose 267 H 11/22/19 11:05: POC Glucose 262 H I & O for Last 24 hours: Intake & Output 11/19/19 11/20/19 11/21/19 11/22/19 23:59 23:59 23:59 23:59 Intake Total 880 / 880 580 / 580 Output Total 1000 / 1450 2049 / 2049 Balance -120 / -570 -1470 / -1470 Weight 177 lb 2 oz 179 lb 7 oz 182 lb 9 oz Microbiology Reports for the Last 24 Hours: Microbiology 11/21/19 18:00 Sputum - Expectorated Sputum Gram Stain - Final 11/21/19 18:00 Sputum - Expectorated Sputum Sputum Culture - Preliminary - Constitutional no acute distress - *Routine HEENT Exam Head: Present: normocephalic Eye: Present: EOMI, PERRL ENT: Present: mucous membranes moist - *Routine Neck Exam Present: supple. Absent: lymphadenopathy - *Routine Respiratory Exam Present: prolonged expiratory phase, wheezes, diminished air movement. Absent: accessory muscle use - *Routine Cardiovascular Exam Present: RRR - *Routine Abdominal Exam Present: soft, normoactive bowel sounds. Absent: tenderness - *Routine Extremities Exam Absent: cyanosis, clubbing, edema - *Routine Skin Exam Present: warm. Absent: rash - *Routine Neurological Exam Present: alert, oriented X3 Assessment and Plan (1) Right upper lobe pneumonia Current visit: Yes Status: Suspected Qualifiers: Aspiration pneumonia type: unspecified Category: Medical Code(s): J18.9 - Pneumonia, unspecified organism (2) Osteoporosis Current visit: Yes Status: Chronic Category: Medical Code(s): M81.0 - Age-related osteoporosis without current pathological fracture (3) Wheezing Current visit: Yes Status: Acute Category: Medical Code(s): R06.2 - Wheezing (4) Hypoxia Current visit: Yes Status: Acute Category: Medical Code(s): R09.02 - Hypoxemia (5) Acute exacerbation of chronic obstructive airways disease Current visit: No Status: Acute Category: Medical Code(s): J44.1 - Chronic obstructive pulmonary disease with (acute) exacerbation (6) Altered mental status Current visit: No Status: Acute Qualifiers: Altered mental status type: delirium Qualified Code(s): R41.0 - Disorientation, unspecified Category: Medical Code(s): R41.82 - Altered mental status, unspecified (7) Abnormal chest xray Current visit: Yes Status: Acute Category: Medical Code(s): R93.89 - Abnormal findings on diagnostic imaging of other specified body structures - Assessment and plan all Dx Assessment and Plan for all problems:: duoneb q4 atc continue abx coverage uptitrate solumedrol cxr today to look clinically improving
--- NOTE | 2019-11-22 15:42 | PC.NURSE ---
A&OX4. PT HAS TOLERATED 3L NC WELL THROUGHOUT SHIFT. RESPIRATIONS REGULAR AND UNLABORED. EXPIRATORY WHEEZES NOTED THROUGHOUT. OCCASIONAL NONPRODUCTIVE COUGH NOTED. ACTIVE BOWEL SOUNDS HEARD THROUGHOUT. SOFT AND NONTENDER ABDOMEN. NO BM THUS FAR. COY CATH IN PLACE W CLEAR YELLOW URINE DRAINING FREELY INTO DRAINAGE BAG. NO KINKS NOTED. TEDS IN PLACE. PT MOVES INDEPENDENTLY IN BED. NO PAIN OR SOB REPORTED THUS FAR. PT HAS REMAINED ON TELE THROUGHOUT SHIFT. NSR OR SINUS TACH NOTED. PT IS CURRENTLY LYING IN BED RESTING. BED IN LOWEST POSITION. CALL LIGHT WITHIN REACH. VSS. WILL CONTINUE TO MONITOR.
[2019-11-22 18:45] LABS: POC Glucose,Bedside 314 (70-110)
[2019-11-22 20:11] LABS: POC Glucose,Bedside 266 (70-110)
[2019-11-23] VITALS (14 sets, daily range): BP systolic 114–140; BP diastolic 50–78; PULSE 76–111; RESP 17–24; TEMP 36.8–37.1; O2SAT 88–92; BMI 29.9; BMI 29.7
--- NOTE | 2019-11-23 05:09 | PC.NURSE ---
shift summary, pt has rested well t/o shift, O2 sats have been between 88-91%, pt denies SOA, urias catheter in place, draining clear yellow urine, 2000 mL out this shift
[2019-11-23 06:33] LABS: POC Glucose,Bedside 287 (70-110)
[2019-11-23 07:19] LABS: Basophils % 0.1 % (0.1-2.0); Eosinophils % 0.1 % (0.1-12.0); Hematocrit 34.1 % (37.0-47.0); Hemoglobin 10.9 g/dL (12.2-16.2); Lymphocytes # 0.6 K/mm3 (0.7-4.5); Lymphocytes % 5.6 % (10-50); Mean Corpuscular HGB Conc 32.1 g/dL (31.8-35.4); Mean Corpuscular Hemoglobin 29.4 pg (27.0-31.2); Mean Corpuscular Volume 91.7 fl (81-99); Mean Platelet Volume 8.1 fl (7.4-10.4); Monocytes # 0.5 K/mm3 (0.1-1.0); Monocytes % 5.2 % (1.7-9.3); Neutrophils # 9.3 K/mm3 (1.8-7.8); Neutrophils % 89.1 % (37.0-80.0); Platelet Count 211 K/mm3 (142-424); Red Blood Count 3.72 M/mm3 (4.20-5.40); Red Cell Distribution Width 14.2 % (11.5-17.5); White Blood Count 10.4 K/mm3 (4.8-10.8)
[2019-11-23 07:24] LABS: MANUAL DIFFERENTIAL MANUAL DIFFERENTIAL (MANUAL DIFF)
[2019-11-23 07:27] LABS: Chloride 95 mmol/L (98-107); Sodium 138 mmol/L (136-145)
[2019-11-23 07:28] LABS: Potassium 3.7 mmoL/L (3.5-5.1)
[2019-11-23 07:30] LABS: Blood Urea Nitrogen 21 mg/dl (7-17); Creatinine Clearance Estimated 69 mL/min (50-200); Estimated Glomerular Filt Rate 99 ml/min (>60); GFR (African American) 120 ML/MIN (>60)
[2019-11-23 07:31] LABS: Anion Gap 7.7 mEq/L (5-15); Carbon Dioxide 39 mmol/L (22.0-30.0); Glucose 323 mg/dl (74-100)
[2019-11-23 09:18] LABS: Eosinophils % 1 % (0-3); Lymphocytes % 6 % (10-50); Monocytes % 3 % (2-9); Neutrophils % 89 % (42-76); Total Cells Counted 100
[2019-11-23 09:20] LABS: Platelet Estimate Normal; RBC Morphology Normal
[2019-11-23 11:53] LABS: POC Glucose,Bedside 219 (70-110)
--- NOTE | 2019-11-23 13:28 | HMH.ACPN2 ---
Internal Medicine - PN: Subj *Date: 11/23/19 *Time: 13:28 Interval history: bm last night hi 80's to low 90's uptitrated solumedrol afebrile continues to wheeze Exam Vital signs and Labs for Last 24 Hours: Temp Pulse Resp BP Pulse Ox 98.2 F 91 H 19 137/65 92 L 11/23/19 11:36 11/23/19 11:36 11/23/19 11:36 11/23/19 11:36 11/23/19 11:36 Laboratory Results - last 24 hr 11/22/19 16:27: POC Glucose 314 H* 11/22/19 19:50: POC Glucose 266 H 11/23/19 06:20: POC Glucose 287 H 11/23/19 06:48: WBC 10.4, RBC 3.72 L, Hgb 10.9 L, Hct 34.1 L, MCV 91.7, MCH 29.4, MCHC 32.1, RDW 14.2, Plt Count 211, MPV 8.1, Neut % (Auto) 89.1 H, Lymph % (Auto) 5.6 L, [place] % (Auto) 5.2, Eos % (Auto) 0.1, Baso % (Auto) 0.1, Neut # (Auto) 9.3 H, Lymph # (Auto) 0.6 L, [place] # (Auto) 0.5, Eos # (Auto) 0.0, Baso # (Auto) 0.0, Total Counted 100, Neutrophils % (Manual) 89 H, Band Neutrophils % 1.0, Lymphocytes % (Manual) 6 L, Monocytes % (Manual) 3, Eosinophils % (Manual) 1, Platelet Estimate Normal, RBC Morphology Normal 11/23/19 06:48: Sodium 138, Potassium 3.7, Chloride 95 L, Carbon Dioxide 39 H, Anion Gap 7.7, BUN 21 H, Creatinine 0.60, Estimated Creat Clear 69, Estimated GFR 99, Est GFR ( Amer) 120, Glucose 323 H, Calcium 9.0 11/23/19 11:32: POC Glucose 219 H I & O for Last 24 hours: Intake & Output 11/20/19 11/21/19 11/22/19 11/23/19 23:59 23:59 23:59 23:59 Intake Total 880 / 880 1450 / 1570 460 / 460 Output Total 1000 / 1450 2850 / 2850 1999 / 1999 Balance -120 / -570 -1400 / -1280 -1540 / -1540 Weight 177 lb 2 oz 179 lb 7 oz 182 lb 9 oz 178 lb 9.191 oz Microbiology Reports for the Last 24 Hours: Microbiology 11/21/19 18:00 Sputum - Expectorated Sputum Gram Stain - Final 11/21/19 18:00 Sputum - Expectorated Sputum Sputum Culture - Final Normal Respiratory May 11/20/19 18:27 Blood Blood Culture - Preliminary NO GROWTH AFTER 48 HOURS 11/20/19 18:27 Blood Blood Culture - Preliminary NO GROWTH AFTER 48 HOURS - Constitutional no acute distress - *Routine HEENT Exam Head: Present: normocephalic Eye: Present: EOMI, PERRL ENT: Present: mucous membranes moist - *Routine Neck Exam Present: supple. Absent: lymphadenopathy - *Routine Respiratory Exam Present: prolonged expiratory phase, wheezes, diminished air movement. Absent: accessory muscle use, respiratory distress, crackles - *Routine Cardiovascular Exam Present: RRR - *Routine Abdominal Exam Present: soft, normoactive bowel sounds. Absent: tenderness - *Routine Extremities Exam Absent: cyanosis, clubbing, edema - *Routine Skin Exam Present: warm. Absent: rash - *Routine Neurological Exam Present: alert, oriented X3 Assessment and Plan (1) Right upper lobe pneumonia Current visit: Yes Status: Suspected Qualifiers: Aspiration pneumonia type: unspecified Category: Medical Code(s): J18.9 - Pneumonia, unspecified organism (2) Osteoporosis Current visit: Yes Status: Chronic Category: Medical Code(s): M81.0 - Age-related osteoporosis without current pathological fracture (3) Wheezing Current visit: Yes Status: Acute Category: Medical Code(s): R06.2 - Wheezing (4) Hypoxia Current visit: Yes Status: Acute Category: Medical Code(s): R09.02 - Hypoxemia (5) Acute exacerbation of chronic obstructive airways disease Current visit: No Status: Acute Category: Medical Code(s): J44.1 - Chronic obstructive pulmonary disease with (acute) exacerbation (6) Altered mental status Current visit: No Status: Acute Qualifiers: Altered mental status type: delirium Qualified Code(s): R41.0 - Disorientation, unspecified Category: Medical Code(s): R41.82 - Altered mental status, unspecified (7) Abnormal chest xray Current visit: Yes Status: Acute Category: Medical Code(s): R93.89 - Abnormal
[2019-11-23 16:28] LABS: POC Glucose,Bedside 217 (70-110)
--- NOTE | 2019-11-23 16:50 | PC.NURSE ---
Pt has been pleasant and cooperative this shift. A&O X4. No complaints of pain or SOA. Pt is currently receiving O2 via NC @ 3 LPM and sats. are noted to be >89%. Skin is C/D/I with no edema noted. Lung sounds reveal expiratory wheezing. F/C patent and draining clear, yellow urine at bedside to gravity. 1 brown, soft, formed BM this shift. Telemetry reveals NSR/ST. 20 G peripheral IV in the LT AC is patent and SL. FSBS results were 219 and 217, both of which required 4 units of insulin per sliding scale. Pt ambulates with 1 assist and sat up in the chair for a few hours this shift. Albert hose in place to BLE. VSS. Call light within reach. Will continue to monitor.
--- NOTE | 2019-11-23 19:07 | PC.NURSE ---
report given to ana cristina
--- NOTE | 2019-11-23 19:10 | PC.NURSE ---
RA sat at rest=85%. returned pt to 3L NC
[2019-11-23 20:57] LABS: POC Glucose,Bedside 266 (70-110)
[2019-11-24] VITALS: BP 138/47; PULSE 100; PULSE 94; RESP 24; TEMP 36.8; O2SAT 90
[2019-11-24 02:59] VITALS: PULSE 90; PULSE 95; O2SAT 93
--- NOTE | 2019-11-24 03:32 | PC.NURSE ---
Addendum entered by Dayanara Hamilton RN 11/24/19 03:51: Sinus tach noted on site monitor. Original Note: Pt is alert and oriented x4. No acute changes noted from previous shift. Pt rested well with eyes closed. Denies pain when asked. PERRLA. Bilateral hand barker operator noted equal and strong. No edema noted. Teds noted to BLE. Bilateral lung sounds noted with expiratory wheezing and rhonchi at beginning of shift. This am lung sounds noted with expiratory wheezing. Remains on 3 lnc. O2 sats noted > 90% t/o shift. Denies soa. No acute respiratory distress noted. Intermittent moist non-productive cough noted. Pt states she is unable to cough anything up at this time. No bm noted, flatulence being passed frequently. Adequate urine output noted per FC. Urine noted clear and bright yellow in color with strong odor. VSS. Remains safe. Call light within reach. Will continue to monitor.
[2019-11-24 04:00] VITALS: BP 141/63; PULSE 100; PULSE 92; RESP 22; TEMP 36.7; O2SAT 90
[2019-11-24 05:00] VITALS: BMI 29.9
[2019-11-24 05:43] LABS: POC Glucose,Bedside 289 (70-110)
--- NOTE | 2019-11-24 05:50 | PC.NURSE ---
patient off floor for CT scan.
--- NOTE | 2019-11-24 05:59 | PC.NURSE ---
patient back up to floor from CT scan.
--- NOTE | 2019-11-24 06:00 | XR_ITS ---
PROCEDURE: XR CHEST 2V CLINICAL HISTORY: wheezing/copd COMPARISON: CR XR CHEST PORTABLE from 05/04/2019 CR XR CHEST PORTABLE from 11/20/[address] CHEST W CON from 11/20/2019 CR XR CHEST 2V from 11/22/2019 FINDINGS: The cardiomediastinal silhouette and pulmonary vascularity are within normal limits. There are chronic changes with scarring in the upper lobes. Patchy density left lung base suggesting infiltrate or atelectatic change with small effusion.. No acute bony abnormalities. IMPRESSION: Chronic changes with left basilar atelectasis or infiltrate with small effusion. Dictated by: Jaylen Valentin MD 11/24/2019 06:21 Jaylen Valentin MD in [facility] 11/24/2019 06:21
[2019-11-24 06:32] VITALS: PULSE 79; PULSE 82; O2SAT 93
[2019-11-24 06:53] LABS: Eosinophils % 0.1 % (0.1-12.0); Hematocrit 34.4 % (37.0-47.0); Lymphocytes # 0.5 K/mm3 (0.7-4.5); Mean Corpuscular HGB Conc 31.8 g/dL (31.8-35.4); Mean Corpuscular Hemoglobin 29.5 pg (27.0-31.2); Mean Corpuscular Volume 92.7 fl (81-99); Mean Platelet Volume 7.5 fl (7.4-10.4); Monocytes # 0.5 K/mm3 (0.1-1.0); Monocytes % 4.1 % (1.7-9.3); Neutrophils % 90.9 % (37.0-80.0); Platelet Count 226 K/mm3 (142-424); Red Blood Count 3.71 M/mm3 (4.20-5.40); Red Cell Distribution Width 14.5 % (11.5-17.5)
[2019-11-24 07:00] LABS: Chloride 98 mmol/L (98-107); MANUAL DIFFERENTIAL MANUAL DIFFERENTIAL (MANUAL DIFF); Potassium 4.2 mmoL/L (3.5-5.1); Sodium 138 mmol/L (136-145)
[2019-11-24 07:03] LABS: Anion Gap 10.2 mEq/L (5-15); Blood Urea Nitrogen 21 mg/dl (7-17); Carbon Dioxide 34 mmol/L (22.0-30.0); Creatinine Clearance Estimated 69 mL/min (50-200); Estimated Glomerular Filt Rate 99 ml/min (>60); GFR (African American) 120 ML/MIN (>60)
[2019-11-24 07:04] LABS: Calcium 8.8 mg/dl (8.4-10.2); Glucose 297 mg/dl (74-100)
[2019-11-24 07:50] LABS: Lymphocytes % 8 % (10-50); Monocytes % 1 % (2-9); Neutrophils % 91 % (42-76); Platelet Estimate Normal; Total Cells Counted 100
[2019-11-24 07:51] LABS: RBC Morphology Normal
[2019-11-24 08:00] VITALS: BP 114/43; PULSE 90; PULSE 98; RESP 17; TEMP 37; O2SAT 90
--- NOTE | 2019-11-24 08:36 | P.PN_ITS ---
Internal Medicine - PN: Subj *Date: 11/24/19 *Time: 08:36 Exam Vital signs and Labs for Last 24 Hours: Temp Pulse Resp BP Pulse Ox 98.6 F 98 H 17 114/43 L 90 L 11/24/19 08:00 11/24/19 08:00 11/24/19 08:00 11/24/19 08:00 11/24/19 08:00 Laboratory Results - last 24 hr 11/23/19 06:48: Total Counted 100, Neutrophils % (Manual) 89 H, Band Neutrophils % 1.0, Lymphocytes % (Manual) 6 L, Monocytes % (Manual) 3, Eosinophils % (Manual) 1, Platelet Estimate Normal, RBC Morphology Normal 11/23/19 11:32: POC Glucose 219 H 11/23/19 16:12: POC Glucose 217 H 11/23/19 20:14: POC Glucose 266 H 11/24/19 05:18: POC Glucose 289 H 11/24/19 06:25: WBC 11.0 H, RBC 3.71 L, Hgb 11.0 L, Hct 34.4 L, MCV 92.7, MCH 29.5, MCHC 31.8, RDW 14.5, Plt Count 226, MPV 7.5, Neut % (Auto) 90.9 H, Lymph % (Auto) 5.0 L, [place] % (Auto) 4.1, Eos % (Auto) 0.1, Baso % (Auto) 0.0 L, Neut # (Auto) 10.0 H, Lymph # (Auto) 0.5 L, [place] # (Auto) 0.5, Eos # (Auto) 0.0, Baso # (Auto) 0.0, Total Counted 100, Neutrophils % (Manual) 91 H, Lymphocytes % (Manual) 8 L, Monocytes % (Manual) 1 L, Platelet Estimate Normal, RBC Morphology Normal 11/24/19 06:25: Sodium 138, Potassium 4.2, Chloride 98, Carbon Dioxide 34 H, Anion Gap 10.2, BUN 21 H, Creatinine 0.60, Estimated Creat Clear 69, Estimated GFR 99, Est GFR ( Amer) 120, Glucose 297 H, Calcium 8.8 I & O for Last 24 hours: Intake & Output 09/05/20 09/06/20 09/07/20 09/08/20 23:59 23:59 23:59 23:59 Intake Total 880 / 880 1450 / 1570 700 / 700 340 / 340 Output Total 1000 / 1450 2850 / 2850 5225 / 5225 1000 / 1000 Balance -120 / -570 -1400 / -1280 -4525 / -4525 -660 / -660 Weight 81.391 kg 82.809 kg 81 kg 81.703 kg Microbiology Reports for the Last 24 Hours: Microbiology 11/21/19 18:00 Sputum - Expectorated Sputum Gram Stain - Final 11/21/19 18:00 Sputum - Expectorated Sputum Sputum Culture - Final Normal Respiratory May Assessment and Plan (1) Right upper lobe pneumonia Current visit: Yes Status: Suspected Qualifiers: Aspiration pneumonia type: unspecified Category: Medical Code(s): J18.9 - Pneumonia, unspecified organism (2) Osteoporosis Current visit: Yes Status: Chronic Category: Medical Code(s): M81.0 - Age- related osteoporosis without current pathological fracture (3) Wheezing Current visit: Yes Status: Acute Category: Medical Code(s): R06.2 - Wheezing (4) Hypoxia Current visit: Yes Status: Acute Category: Medical Code(s): R09.02 - Hypoxemia (5) Acute exacerbation of chronic obstructive airways disease Current visit: No Status: Acute Category: Medical Code(s): J44.1 - Chronic obstructive pulmonary disease with (acute) exacerbation (6) Altered mental status Current visit: No Status: Acute Qualifiers: Altered mental status type: delirium Qualified Code(s): R41.0 - Disorientation, unspecified Category: Medical Code(s): R41.82 - Altered mental status, unspecified (7) Abnormal chest xray Current visit: Yes Status: Acute Category: Medical Code(s): R93.89 - Abnormal findings on diagnostic imaging of other specified body structures The patient's infection will respond to the chosen ABx?: Yes Is the patient receiving the right drug, dose, and route?: Yes Could a more targeted ABx be ordered?: No (AWAITING CULTURES)
--- NOTE | 2019-11-24 09:04 | HMH.DCSUM ---
General - General Admission date:: 11/20/19 Discharge date: 11/24/19 HPI HPI: 69-year-old female presenting with altered mental status and new oxygen requirement. Neuro intact and nonfocal here. Nontoxic, afebrile, hemodynamically stable. Requiring 5 L up from 3.5 at baseline. Chest x-ray shows right upper lobe pneumonia. White blood cell count, creatinine, electrolytes are within normal limits. Patient was started on 1 g of IV Rocephin and 500 mg of IV Zithromax for pneumonia coverage. Blood cultures are pending. Spoke to the PCP who agreed to admit the patient for further work-up and management given her new oxygen requirement and report of altered mental status, although she was GCS 15 here. Is a 69-year-old female assisted resident presenting for altered mental status. Patient was more somnolent today. She also relates global weakness and dropping things in both hands today. She is also had an increased oxygen requirement from 3-1/2 L to 5 L. No fever, chills, nausea, vomiting, chest pain, cough, shortness of breath, abdominal pain, urinary symptoms. Patient is otherwise a poor historian so further history and review of systems is limited. per ER physician Workup has included cxr/ct chest/ct brain IMPRESSION: 1. Continued right upper lobe fibronodular scarring with some calcification not significantly changed. No new apical mass evident 2. Centrilobular emphysema with pulmonary fibrosis. There has been increase in interlobular septal thickening is a continuation of the lungs which could be related to progressive pulmonary fibrosis with a background of pulmonary edema 3. Atelectatic changes in the right upper lobe with new area of consolidation in the left lower lobe posteriorly IMPRESSION: 1. No acute intracranial findings. 2. Small calcific density in the left CP angle. This is nonspecific without mass effect and may be better evaluated with outpatient MRI without and with enhancement. 3. Mild left ethmoid sinus disease started on iv azith/rocephin Hospital Course Hospital Course: 69-year-old female patient presented the emergency department altered mental status and increasing oxygen requirements. At the assisted she was requiring 5 L per nasal cannula, her normal baseline is 3.5 L per nasal cannula. Chest x-ray and ER showed right upper lobe pneumonia all lab work was within normal. In the ER she was given 1 g of Rocephin and 500 Zithromax. She was alert and oriented in the emergency department where she was reported as having altered mental status from the assisted. She denied fever/chills/body aches or N/V/D, she also denied chest pain or shortness of breath. COVID-19 IgG/IgM negative Chest CT IMPRESSION: 1. Continued right upper lobe fibronodular scarring with some calcification not significantly changed. No new apical mass evident 2. Centrilobular emphysema with pulmonary fibrosis. There has been increase in interlobular septal thickening is a continuation of the lungs which could be related to progressive pulmonary fibrosis with a background of pulmonary edema 3. Atelectatic changes in the right upper lobe with new area of consolidation in the left lower lobe posteriorly Cranial CT IMPRESSION: 1. No acute intracranial findings. 2. Small calcific density in the left CP angle. This is nonspecific without mass effect and may be better evaluated with outpatient MRI without and with enhancement. 3. Mild left ethmoid sinus disease Blood cultures x2 have been negative and sputum culture showed normal elizabeth. CBC and BMP have been unremarkable during stay She has had increased breathing treatments while she has been in the hospital, her oxygen needs have been decreased back to baseline at 3 L per nasal cannula. She denies shortness of breath, can complete sentences without difficulty, denies chest pain Will DC Patel and ensure urinatio
--- NOTE | 2019-11-24 09:49 | SW/DCPLANNER ---
Addendum entered by Shanel Benitez 11/24/19 12:47: I have faxed NEGATIVE COVID results to [facility]. Original Note: This patient currently resides at [facility]. I have spoke with Lore regarding this patient and she has stated that patient is [facility] level of care. I have informed [facility] that this patient will discharge back today once COVID results are back.
[2019-11-24 11:11] LABS: POC Glucose,Bedside 365 (70-110)
[2019-11-24 12:00] VITALS: BP 124/73; PULSE 70; PULSE 95; RESP 18; TEMP 36.6; O2SAT 91
--- NOTE | 2019-11-24 15:10 | PC.NURSE ---
Pt alert and oriented. Pt has been d/cd at this time. Awaiting [facility] currently. Called report to Kelly at [place]. Cb in reach. Patel has been removed and pt has been up to void per bedside.
== END 2019-11-24 15:17 | DRG 194 ==
LOC: ER 20:11 → 2ND 11-21 09:53
PROVIDERS: Admitting Provider Family Medicine; Emergency Provider Physician Assistant; PCP Emergency Medicine; Visit Provider Family Medicine
DX: J18.9 Pneumonia, unspecified organism (principal); J44.1 Chronic obstructive pulmonary disease with (acute) exacerbation; M81.0 Age-related osteoporosis without current pathological fracture; I11.0 Hypertensive heart disease with heart failure; I50.9 Heart failure, unspecified; E11.9 Type 2 diabetes mellitus without complications; Z79.84 Long term (current) use of oral hypoglycemic drugs; E78.5 Hyperlipidemia, unspecified; Z87.891 Personal history of nicotine dependence; Z79.52 Long term (current) use of systemic steroids; Z79.899 Other long term (current) drug therapy
CPT/HCPCS: 70450; 71045; 71046; 71260; 80048; 81001; 82962; 83605; 84484; 85007; 85025; 86328; 87040; 87070; 87205; 93005; 94640; 94760; 96365; 96367; 96375; 99285; J0456; J1956; Q9967; U0003

== ENCOUNTER → 2020-02-17 10:44 | Outpatient (CLI) | payer MEDICARE, MEDICAID, SELFPAY ==
--- NOTE | 2020-02-17 10:45 | CT_ITS ---
PROCEDURE: CT CHEST WO CON ISMAEL this. Did list this the CLINICAL INDICATION: Interstitial lung disease ILD UNABLE TO RAISE ARMS PRIOR CHEST W, 11/20/19 PRIOR WO, 06/04/19 COMPARISON: CT AGCHEST CT angio chest from 07/11/[address] THORACIC SPINE WO CON from 03/05/[address] CHEST WO CON from 03/05/[address] CHEST WO CON from 06/04/[address] CHEST W CON from 11/20/2019 TECHNIQUE: Axial images obtained with sagittal and coronal reformats. All CT scans at the facility use one or more dose reduction, viz: automated exposure control, ma/kV adjustment per patient size (including targeted exams where dose is matched to indication, i.e. head), or iterative reconstruction technique. Inspiration and expiration and prone high-resolution images are obtained. FINDINGS: Centrilobular emphysematous changes are present with changes of COPD and scattered areas of scarring with pleural parenchymal calcification in the right upper lobe. There is evidence of old granulomatous disease. There are pulmonary fibrotic changes. Nodularity is present in the right upper lobe which is stable. A subpleural nodular opacity is present in the left lower lobe image 44 series 2 measuring 11 mm probably not significantly changed given difference in inspiration. There is some mild interlobular septal thickening in the lung bases greater on the right. This does not appear significantly changed. Expiration images show a degree of air trapping with only minimal reduced lung volume on the expiration images. Other findings include coronary artery calcification. There is stable wedge compression changes of T5 and T6. IMPRESSION: COPD with centrilobular emphysema with pulmonary fibrotic changes. There is some interlobular septal thickening in the lung bases overall not significantly changed with some degree of air trapping. Dictated by: Jaylen Valentin MD 02/23/2020 10:30 Jaylen Valentin MD in [facility] 02/23/2020 10:30
== END ==
PROVIDERS: PCP Emergency Medicine; Visit Provider Internal Medicine Pulmonary Disease
DX: J84.9 Interstitial pulmonary disease, unspecified (principal)
CPT/HCPCS: 71250; 94060; 94727; 94729

== ENCOUNTER → 2020-04-01 21:05 | Outpatient (CLI) | payer MEDICARE, MEDICAID, SELFPAY | PROVIDERS: PCP Emergency Medicine; Visit Provider Nurse Practitioner Family | DX: U07.1 COVID-19 (principal) | CPT/HCPCS: U0003 ==

== ENCOUNTER 2020-05-17 22:19 | Emergency (ER) | payer MEDICARE, MEDICAID, SELFPAY ==
[2020-05-17 22:24] VITALS: BP 136/73; PULSE 110; RESP 20; O2SAT 96; BMI 29.9
[2020-05-17 22:30] VITALS: BP 135/73; PULSE 113; RESP 15; O2SAT 95
--- NOTE | 2020-05-17 22:36 | XR_ITS ---
PROCEDURE: XR CHEST PORTABLE CLINICAL HISTORY: SOA Smoker COMPARISON: CR XR CHEST PORTABLE from 11/20/2019 CR XR CHEST 2V from 11/22/2019 CR XR CHEST 2V from 11/24/[address] CHEST WO CON from 02/17/2020 FINDINGS: The cardiomediastinal silhouette and pulmonary vascularity are within normal limits. Chronic interstitial changes are present with evidence of old granulomatous disease. No lobar consolidation or collapse. There low lung volumes. No acute bony abnormalities. IMPRESSION: Chronic changes, no acute finding Dictated by: Jaylen Valentin MD 05/18/2020 06:01 Jaylen Valentin MD in [facility] 05/18/2020 06:01
--- NOTE | 2020-05-17 22:37 | HMH.EDSOB ---
ED Disposition Clinical Impression: COPD (chronic obstructive pulmonary disease) with emphysema Qualifiers: Emphysema type: unspecified Qualified Code(s): J43.9 - Emphysema, unspecified Disposition: Home, Self-Care Condition on Discharge: Good Instructions: DI for Chronic Obstructive Pulmonary Disease Additional Instructions: resume prev orders Referrals: Jarret Dennison MD [Primary Care Provider] - - Critical Care Critical Care Time: No Attestation: On 05/17/20, the high probability of a clinically significant, sudden or life threatening deterioration of the following system(s) required my full and direct attention, intervention and personal management. The time I documented below is in addition to time spent performing reported procedures but includes the following listed in this critical care notation. Medical Decision Making - Medical Records Medical records reviewed: Yes: I reviewed the patient's medical records. - José Miguel Inquiry Pt receiving controlled substance: No Vital Signs: 05/17/20 22:24 05/17/20 22:30 Pulse Rate [Left] 110 H 113 H Respiratory Rate 20 15 Blood Pressure [Right Arm] 136/73 135/73 Blood Pressure Mean [Right Arm] 94 93 Blood Pressure Source [Right Arm] Automatic Cuff Automatic Cuff Blood Pressure Position [Right Arm] Sitting Supine 02 Sat by Pulse Oximetry 96 95 Oxygen Delivery Method Nasal Cannula Nasal Cannula Oxygen Flow Rate (LPM) 3 3 - Lab Data Lab results reviewed: Yes: I reviewed the patient's lab results. Orders (Tests/Meds): ORDERS Category Date Time Status Chest XR -- portable [XR chest portable] Stat Exams 05/17/20 22:36 Taken - Radiology Data #1 Image(s): Chest Image Reviewed: Yes I reviewed the patient's radiology image Preliminary Findings: Abnormal (copd) Medical Decision Narrative: doing better at baseline Resp/SOB HPI - General Chief Complaint: Shortness of Breath/Dyspnea Stated Complaint: SOA Time Seen by Provider: 05/17/20 22:30 Mode of Arrival: EMS Source of Information: Patient, EMS, Medical Record Limitations: No Limitations Description of Symptoms (Recalled from ER Triage Doc. by RN): Pt sent from [place] with complaints of respiratory distress and fever. PT recieved her 2nd covid vaccine today. Arrives wiht EMS with no obvious distress, when asked patient if she was feeling bad she replied no not really - History of Present Illness pt with hx of copd and uses o2 with recent covid-19 vaccine and had episode of sob and dec sat at [facility]- doing better now - no specific c/o MD Complaint: shortness of breath Onset (ago): hour(s) Context: other (recent vaccine ) Severity: moderate Known history of: COPD Associated symptoms: denies other symptoms Treatment prior to arrival: oxygen - Related Data Home oxygen amount: 2 liters Home Medications Medication Instructions Recorded Confirmed Quetiapine Fumarate [Seroquel 25mg 25 mg PO HS 07/01/18 04/04/20 tablet] Metformin HCl [Metformin ER 500 mg PO BID 04/13/19 04/04/20 Osmotic] Spironolactone [Spironolactone 25 mg PO 0800,1700 04/13/19 04/04/20 25mg Tablet] Cholecalciferol (Vitamin D3) 400 unit PO BID 04/20/19 04/04/20 [Vitamin D3] Ondansetron [Zofran 4mg ODT] 4 mg PO Q8HP PRN 04/20/19 04/04/20 buspirone 5 mg tablet 5 mg PO BID tab 08/14/19 04/04/20 Acetaminophen [Acetaminophen Extra 500 mg PO Q4H PRN 11/20/19 04/04/20 Strength] Omeprazole [Omeprazole 20mg 20 mg PO DAILY 11/20/19 04/04/20 Capsule] Calcium Carbonate [Calcium] 600 mg PO BID 11/21/19 04/04/20 Lidocaine [Aspercreme Lidocaine] 1 patch TP DAILYP PRN 11/21/19 04/04/20 guaiFENesin [Guaifenesin] 200 mg PO Q6HP PRN 11/21/19 04/04/20 alendronate 70 mg tablet 70 mg PO QWEEK 12/09/19 04/04/20 ipratropium 0.5 mg-albuterol 3 mg 3 ml INHALATION Q6H PRN ml 12/09/19 04/04/20 (2.5 mg base)/3 mL nebulization soln calcium carbonate 200 mg calcium 1,000 mg PO QIDP PRN 01/13/20 04/04/20
[2020-05-18 00:24] VITALS: BP 146/98; PULSE 105; RESP 18; O2SAT 96
[2020-05-18 00:30] VITALS: BP 148/71; PULSE 98; RESP 17; O2SAT 97
[2020-05-18 00:55] VITALS: BP 148/70; PULSE 78; RESP 18; TEMP 36.8; O2SAT 98
== END 2020-05-18 00:56 | disposition home or self-care (01) ==
PROVIDERS: Emergency Provider Emergency Medicine; PCP Emergency Medicine
DX: J43.9 Emphysema, unspecified (principal); E11.9 Type 2 diabetes mellitus without complications; I73.9 Peripheral vascular disease, unspecified; I10 Essential (primary) hypertension; E78.5 Hyperlipidemia, unspecified; Z87.891 Personal history of nicotine dependence; Z79.899 Other long term (current) drug therapy
CPT/HCPCS: 71045; 99284

== ENCOUNTER → 2020-05-26 11:21 | Outpatient (CLI) | payer MEDICARE, MEDICAID, SELFPAY ==
[2020-05-26 11:49] LABS: Basophils % 0.4 % (0.1-2.0); Eosinophils # 0.3 K/mm3 (0.0-0.4); Eosinophils % 3.3 % (0.1-12.0); Hematocrit 38.4 % (37.0-47.0); Hemoglobin 11.5 g/dL (12.2-16.2); Lymphocytes # 2.4 K/mm3 (0.7-4.5); Lymphocytes % 29.6 % (10-50); Mean Corpuscular HGB Conc 29.9 g/dL (31.8-35.4); Mean Corpuscular Hemoglobin 29.2 pg (27.0-31.2); Mean Corpuscular Volume 97.8 fl (81-99); Mean Platelet Volume 8.3 fl (7.4-10.4); Monocytes # 0.5 K/mm3 (0.1-1.0); Monocytes % 6.9 % (1.7-9.3); Neutrophils # 4.8 K/mm3 (1.8-7.8); Neutrophils % 59.8 % (37.0-80.0); Platelet Count 260 K/mm3 (142-424); Red Blood Count 3.93 M/mm3 (4.20-5.40); Red Cell Distribution Width 14.7 % (11.5-17.5); White Blood Count 7.9 K/mm3 (4.8-10.8)
[2020-05-27 15:31] LABS: Alpha-1-Antitrypsin 148 mg/dL (101-187)
[2020-05-30 00:05] LABS: D001-IgE D pteronyssinus <0.10 kU/L (Class 0); D002-IgE D farinae <0.10 kU/L (Class 0); E001-IgE Cat Dander <0.10 kU/L (Class 0); E005-IgE Dog Dander <0.10 kU/L (Class 0); G002-IgE Bermuda Grass <0.10 kU/L (Class 0); G006-IgE Timothy Grass <0.10 kU/L (Class 0); I006-IgE Cockroach, German <0.10 kU/L (Class 0); Immunoglobulin E, Total 21 IU/mL (6-495); M001-IgE Penicillium chrysogen <0.10 kU/L (Class 0); M002-IgE Cladosporium herbarum <0.10 kU/L (Class 0); M003-IgE Aspergillus fumigatus <0.10 kU/L (Class 0); M006-IgE Alternaria alternata <0.10 kU/L (Class 0); T001-IgE Maple/Box Elder <0.10 kU/L (Class 0); T003-IgE Common Silver Birch <0.10 kU/L (Class 0); T006-IgE Cedar, Mountain <0.10 kU/L (Class 0); T007-IgE Oak, White <0.10 kU/L (Class 0); T008-IgE Elm, American <0.10 kU/L (Class 0); T010-IgE Walnut <0.10 kU/L (Class 0); T011-IgE Maple Leaf Sycamore <0.10 kU/L (Class 0); T014-IgE Cottonwood <0.10 kU/L (Class 0); T015-IgE Ash, White <0.10 kU/L (Class 0); T022-IgE Pecan, Hickory <0.10 kU/L (Class 0); T070-IgE White Mulberry <0.10 kU/L (Class 0); W001-IgE Ragweed, Short <0.10 kU/L (Class 0); W011-IgE Thistle, Russian <0.10 kU/L (Class 0); W014-IgE Pigweed, Common <0.10 kU/L (Class 0); W018-IgE Sheep Sorrel <0.10 kU/L (Class 0)
[2020-05-30 15:24] LABS: E072-IgE Mouse Urine <0.10 kU/L (Class 0)
[2020-05-31 14:19] LABS: QuantiFERON-TB Gold Plus Negative (Negative)
== END ==
PROVIDERS: Visit Provider Internal Medicine Pulmonary Disease
DX: J44.9 Chronic obstructive pulmonary disease, unspecified (principal); J45.909 Unspecified asthma, uncomplicated
CPT/HCPCS: 36415; 82103; 82785; 85025; 86003; 86480

== ENCOUNTER 2020-08-15 08:03 | Inpatient (IN) | payer MEDICARE, MEDICAID, BC, SELFPAY ==
[2020-08-15] VITALS (14 sets, daily range): BP systolic 105–130; BP diastolic 40–73; PULSE 82–104; RESP 18–28; TEMP 36.6–37.2; O2SAT 78–96; BMI 38.9; BMI 34.7; BMI 35.0
--- NOTE | 2020-08-15 08:01 | ECG_ITS ---
APPROVED REPORT Exam: Resting ECG HR:100 bpm ECG Measurements Heart Rate 100 AXES CA 144 P 95 QRSd 78 QRS 44 QT 334 T 49 QTc 430 Conclusion Normal sinus rhythm Low voltage QRS Borderline ECG Electronically signed by : Saturnino Farmer, 08/16/2020 19:51:49
--- NOTE | 2020-08-15 08:06 | XR_ITS ---
PROCEDURE INFORMATION: Exam: XR Chest Exam date and time: 08/15/2020 8:06 AM Age: 70 years old Clinical indication: Shortness of breath; Patient HX: SOA; Additional info: Short of breath TECHNIQUE: Imaging protocol: XR of the chest. Views: 1 view. COMPARISON: CR XR CHEST PORTABLE 05/17/2020 10:41 PM FINDINGS: Lungs: Hyperexpanded lung [place] consistent with COPD Opacities in the mid lung regions and both bases may represent atelectasis or pneumonia.. Pleural spaces: Unremarkable. No pleural effusion. No pneumothorax. Heart/Mediastinum: Unremarkable. No cardiomegaly. Bones/joints: Degenerative changes in the glenohumeral joints IMPRESSION: Opacities in the mid lung regions and both bases may represent atelectasis or pneumonia..
[2020-08-15 08:23] LABS: Alanine Aminotransferase 13 U/L (12-78); Albumin Level 3.8 g/dl (3.5-5.0); Albumin/Globulin Ratio 1.2 (1.1-1.8); Alkaline Phosphatase 68 U/L (38-126); Aspartate Amino Transferase 16 U/L (14-36); Bilirubin,Total 0.9 mg/dl (0.2-1.3); Blood Urea Nitrogen 7 mg/dl (7-17); Calcium 8.8 mg/dl (8.4-10.2); Chloride 92 mmol/L (98-107); Creatinine Clearance Estimated 84 mL/min (50-200); Estimated Glomerular Filt Rate 83 ml/min (>60); GFR (African American) 100 ML/MIN (>60); Globulin 3.3 g/dL (1.3-3.2); Glucose 218 mg/dl (74-100); Potassium 4.2 mmoL/L (3.5-5.1); Sodium 140 mmol/L (136-145); Total Protein,Serum 7.1 g/dl (6.3-8.2)
[2020-08-15 08:33] LABS: NT Pro Brain Natriuretic Pep. 566 pg/mL (0-125)
[2020-08-15 08:34] LABS: Anion Gap 6.2 mEq/L (5-15); Carbon Dioxide 46 mmol/L (22.0-30.0)
[2020-08-15 08:37] LABS: Basophils % 0.2 % (0.1-2.0); Eosinophils # 0.2 K/mm3 (0.0-0.4); Eosinophils % 2.2 % (0.1-12.0); Hematocrit 36.7 % (37.0-47.0); Hemoglobin 11.4 g/dL (12.2-16.2); Lymphocytes % 20.1 % (10-50); Mean Corpuscular Hemoglobin 29.3 pg (27.0-31.2); Mean Corpuscular Volume 94.5 fl (81-99); Mean Platelet Volume 7.5 fl (7.4-10.4); Monocytes # 0.6 K/mm3 (0.1-1.0); Monocytes % 6.2 % (1.7-9.3); Neutrophils # 7.1 K/mm3 (1.8-7.8); Neutrophils % 71.3 % (37.0-80.0); Platelet Count 217 K/mm3 (142-424); Red Blood Count 3.89 M/mm3 (4.20-5.40); Red Cell Distribution Width 13.8 % (11.5-17.5); White Blood Count 9.9 K/mm3 (4.8-10.8)
[2020-08-15 08:38] LABS: VBG Base Excess 12.2 mmol/L (-2.4-2.3); VBG HCO3 38.3 mmol/L (23-30); VBG Oxygen Saturation 94.3 % (50-70); VBG PH 7.31 mmol/L (7.31-7.41); VBG PO2 61.8 mmol/L (28-40); VBG Total CO2 40.7 mmol/L (23-27)
[2020-08-15 08:40] LABS: VBG PCO2 77.2 mmol/L (35-51)
[2020-08-15 08:45] LABS: Troponin I < 0.01 ng/ml (0.00-0.034)
[2020-08-15 09:13] LABS: Lactic Acid 1.3 mmol/L (0.7-2.1)
--- NOTE | 2020-08-15 09:14 | HMH.EDGENADL ---
ED Disposition Clinical Impression: COPD exacerbation, Acute on chronic respiratory failure with hypoxia and hypercapnia Bilateral pneumonia Qualifiers: Pneumonia type: due to unspecified organism Lung location: unspecified part of lung Qualified Code(s): J18.9 - Pneumonia, unspecified organism Disposition: Admitted As Inpatient Condition on Discharge: Fair Time of Disposition: 09:25 - Critical Care Critical Care Time: No Attestation: On 08/15/20, the high probability of a clinically significant, sudden or life threatening deterioration of the following system(s) required my full and direct attention, intervention and personal management. The time I documented below is in addition to time spent performing reported procedures but includes the following listed in this critical care notation. Medical Decision Making - Medical Records Medical records reviewed: Yes: I reviewed the patient's medical records. - José Miguel Inquiry Pt receiving controlled substance: No Vital Signs: 08/15/20 08:03 08/15/20 08:31 08/15/20 09:09 Temperature 98.5 F Temperature Source Oral Pulse Rate 96 H 102 H Pulse Rate [Left Radial] 104 H Respiratory Rate 28 H 24 24 Blood Pressure 124/73 113/54 L Blood Pressure [Right Arm] 121/70 Blood Pressure Mean 83 73 Blood Pressure Mean [Right Arm] 87 02 Sat by Pulse Oximetry 85 L 81 L 78 L Oxygen Delivery Method Nasal Cannula Oxygen Flow Rate (LPM) 08/15/20 09:30 08/15/20 09:38 Temperature Temperature Source Pulse Rate 99 H Pulse Rate [Left Radial] Respiratory Rate 18 Blood Pressure 130/61 Blood Pressure [Right Arm] Blood Pressure Mean 69 Blood Pressure Mean [Right Arm] 02 Sat by Pulse Oximetry 96 92 L Oxygen Delivery Method Vapotherm Oxygen Flow Rate (LPM) 35 - Lab Data Lab Results 08/15/20 07:55: WBC 9.9, RBC 3.89 L, Hgb 11.4 L, Hct 36.7 L, MCV 94.5, MCH 29.3, MCHC 31.0 L, RDW 13.8, Plt Count 217, MPV 7.5, Neut % (Auto) 71.3, Lymph % (Auto) 20.1, Rice % (Auto) 6.2, Eos % (Auto) 2.2, Baso % (Auto) 0.2, Neut # (Auto) 7.1, Lymph # (Auto) 2.0, Rice # (Auto) 0.6, Eos # (Auto) 0.2, Baso # (Auto) 0.0 08/15/20 07:55: Sodium 140, Potassium 4.2, Chloride 92 L, Carbon Dioxide 46 H*, Anion Gap 6.2, BUN 7, Creatinine 0.70, Estimated Creat Clear 84, Estimated GFR 83, Est GFR ( Amer) 100, Glucose 218 H, Calcium 8.8, Total Bilirubin 0.9, AST 16, ALT 13, Alkaline Phosphatase 68, Troponin I < 0.01, Total Protein 7.1, Albumin 3.8, Globulin 3.3 H, Albumin/Globulin Ratio 1.2 08/15/20 07:55: NT-Pro-B Natriuret Pep 566 H 08/15/20 08:06: VBG pH 7.31, VBG pCO2 77.2 H, VBG pO2 61.8 H, VBG HCO3 38.3 H, VBG Total CO2 40.7 H, VBG O2 Saturation 94.3 H, VBG Base Excess 12.2 H 08/15/20 08:45: Lactate 1.3 Result diagrams: 08/15/20 07:55 08/15/20 07:55 Orders (Tests/Meds): ED MEDICATIONS Generic Name Dose Route Start Last Admin Trade Name Freq PRN Reason Stop Dose Admin Ceftriaxone Sodium 1 gm/ 50 mls @ 100 mls/hr 08/15/20 08:15 08/15/20 08:57 Sodium Chloride IV 08/29/20 08:14 100 mls/hr Q24H TRACEY Administration Protocol Azithromycin 500 mg/ Sodium 250 mls @ 250 mls/hr 08/15/20 08:15 08/15/20 09:02 Chloride IV 08/29/20 08:14 250 mls/hr Q24H TRACEY Administration Protocol Discontinued Medications Generic Name Dose Route Start Last Admin Trade Name Freq PRN Reason Stop Dose Admin Albuterol/Ipratropium 3 ml 08/15/20 08:07 08/15/20 08:14 Ipratropium/Albuterol 3 Ml Neb 08/15/20 08:08 3 ml ONCE ONE Administration Methylprednisolone Sodium Succinate 125 mg 08/15/20 08:07 08/15/20 08:14 Methylprednisolone Sod Succ 125mg Vial IV 08/15/20 08:08 125 mg ONCE ONE Administration Metronidazole 500 mg 08/15/20 09:24 08/15/20 09:43 Metronidazole 500 Mg Tablet PO 08/15/20 09:25 500 mg ONCE ONE Administration Protocol ORDERS Category Date Time Status Covid-19 Nasal PCR ([facility]) Routine Lab 08/15/20 08
--- NOTE | 2020-08-15 09:19 | PC.NURSE ---
notified ER MD of pt SaO2 76% on 4L per NC, have sat pt up in bed, encouraged pt to take deep breaths through her nose, no improvement in SaO2. ER MD states to place pt on Bipap. RT called to notify them of bipap order per ER MD. RT arrives at , pt refuses to wear bipap. ER MD aware. RT is going to place pt on vapotherm. Will continue to monitor.
--- NOTE | 2020-08-15 10:02 | PC.NURSE ---
NEVAEH MORALEZ speaking with Dr Hu who is sales promotion manager for Dr. Dennison
--- NOTE | 2020-08-15 10:05 | PC.NURSE ---
notified warehouse person of admission
[2020-08-15 10:21] LABS: Microscopic, Urine URINE MICROSCOPIC (MICROSCOPIC)
[2020-08-15 10:23] LABS: Appearance,Urine TURBID (Clear); Bilirubin,Urine Negative (Negative); Blood, Urine Negative (Negative); Color,Urine YELLOW (Yellow); Glucose,Urine (UA) Negative (Negative); Ketones,Urine Negative (Negative); Leukocyte Esterase,Urine Negative (Negative); Nitrate,Urine Negative (Negative); Protein,Urine TRACE (Negative)
[2020-08-15 10:32] LABS: Yeast,Urine 1+ /lpf
--- NOTE | 2020-08-15 11:26 | HMH.PHAVTE ---
[facility] Pharmacy VTE Monitoring - Patient Demographics Admission date: 08/15/20 Report Date: 08/15/20 Time: 11:26 Allergies/Adverse Reactions: Patient Allergies orange juice Allergy (Mild, Verified 08/04/20 10:27) Rash Height: 1.6 m Weight: 99.79 kg Patient Problems: Current Active Problems Bilateral pneumonia (Acute) Acute on chronic respiratory failure with hypoxia and hypercapnia (Acute) COPD exacerbation (Acute) - VTE Risk Labs: VTE Related Lab Results Hgb 11.4 g/dL (12.2-16.2) L 08/15/20 07:55 Hct 36.7 % (37.0-47.0) L 08/15/20 07:55 Plt Count 217 K/mm3 (142-424) 08/15/20 07:55 BUN 7 mg/dl (7-17) 08/15/20 07:55 Creatinine 0.70 mg/dl (0.52-1.04) 08/15/20 07:55 Estimated Creat Clear 84 mL/min (50-200) 08/15/20 07:55 - Prophylaxis VTE Prophylaxis Ordered?: Yes Types of VTE Prophylaxis: TEDS Knee High Location of Applied Device: Bilateral Lower Extremeties
--- NOTE | 2020-08-15 11:54 | HMH.HP ---
*Admission Date: 08/15/20 *Chief complaint: resp distress *History of present illness: 70 yr old female presented to [facility] via ambulance from [place] for soa. Pt states on saturday she began having soa and congestion but did not want to be checked out. pt states over the weekend she has not been eating well or doing much due to soa. pt admitted placed on vapertherm. pt has hx of copd. Pt confused and keeps repeating self. Pt states she feels she is confused and foggy headed. [facility] History I have reviewed the patient's past medical history: Yes Medical History: Reports:: Anxiety, Congestive Heart Failure, Chronic Obstructive Pulmonary Disease (COPD), Diabetes Mellitus Type 2, Hyperlipidemia, Hypertension, Peripheral Vascular Disease Denies:: Cancer, Diabetes Mellitus Type 1, Internal Pacemaker, MRSA *Have you ever received a pneumonia vaccine?: Yes *Have you received a flu vaccine this season?: Yes Other Medical History: Reports: Arthritis, Sinus Problems, Other Other Surgeries: Yes: No Previous Surgery, Cholecystectomy, Colonoscopy, , Hysterectomy-Total. No: Pacemaker Amputation: No Fractures: No - *Social History Smoking Status: Former smoker Tobacco Type: cigarettes # Packs/Day (cigarettes): 1 #Yrs smoked (if former smoker): 50 Alcohol Intake: former Alcohol Intake Frequency:: 3 or more drinks per day Substance Use Type: denies use *Occupational Status:: disabled Housing: [facility] Household Members: other *Travel in the last 8 weeks: None - Psychiatric History Pschychiatric History:: Reports:: Anxiety, Bipolar Disorder Family Hx:: Diabetes, Coronary Artery Disease Review of Systems - Review of Systems Review of systems:: pertinent systems reviewed and negative unless documented below - Constitutional Reports fatigue, Reports weakness, Denies body ache(s) - Eyes Denies discharge - ENT Denies abnormal hearing - *Cardiovascular Reports shortness of breath, Reports shortness of breath with activity, Denies chest pain with activity - *Respiratory Reports chest congestion, Reports cough, Reports shortness of breath, Reports shortness of breath with activity, Reports wheezing - *Gastrointestinal Denies abdominal pain - *Genitourinary Denies urinary urgency - *Musculoskeletal Denies abnormal walking - *Neurologic Denies headache(s), Denies numbness, Denies tingling - Psychiatric Reports confusion, Denies tactile hallucinations - Endocrine Denies excessive sweating - Hematologic/Lymphatic Denies easy bruising - Allergic/Immunologic Denies itchy eyes Meds Home Medications Medication Instructions Recorded Confirmed Type Quetiapine Fumarate [Seroquel 25mg 25 mg PO HS 07/01/18 08/15/20 History tablet] Metformin HCl [Metformin ER 500 mg PO BID 04/13/19 08/15/20 History Osmotic] Spironolactone [Spironolactone 25 mg PO 0800,1700 04/13/19 08/15/20 History 25mg Tablet] Cholecalciferol (Vitamin D3) 400 unit PO BID 04/20/19 08/15/20 History [Vitamin D3] Ondansetron [Zofran 4mg ODT] 4 mg PO Q8HP PRN 04/20/19 08/15/20 History hydrocodone 5 mg-acetaminophen 325 1 tab PO BID PRN #60 tab 08/25/19 08/15/20 Rx mg tablet Acetaminophen [Acetaminophen Extra 500 mg PO Q4HP PRN 11/20/19 08/15/20 History Strength] Omeprazole [Omeprazole 20mg 20 mg PO DAILY 11/20/19 08/15/20 History Capsule] Lidocaine [Aspercreme Lidocaine] 1 patch TP DAILYP PRN 11/21/19 08/15/20 History guaiFENesin [Guaifenesin] 200 mg PO Q6HP PRN 11/21/19 08/15/20 History alendronate 70 mg tablet 70 mg PO WEEKLY 12/09/19 08/15/20 History gabapentin 100 mg capsule 100 mg PO TID #90 cap 04/15/20 08/15/20 Rx albuterol sulfate 90 mcg/actuation 1 inh INHALATION QID PRN #8.5 g 05/26/20 08/15/20 Rx aerosol inhaler lorazepam 0.5 mg tablet 0.25 mg PO BID #30 tab 06/07/20 08/15/20 Rx Buspirone HCl [Buspar 5mg tablet] 5 mg PO BID 08/15/20 08/15/20 History Maury/D3/Mag11/Zinc/Electric Deicer Inspector/Moi/Bor 1 each PO BID 08/15/20 0
--- NOTE | 2020-08-15 13:00 | HMH.PHAINT ---
MEDICATION RECONCILIATION COMPLETED ON PATIENT USING MAR FROM [facility]. -CURT KRISHNAN, KAELAD
--- NOTE | 2020-08-15 14:08 | PC.NURSE ---
SHE IS AOX4, ABLE TO MAKE NEEDS KNOWN TO STAFF, VAPOTHERM REMAINS IN PLACE 30LPM/60%. SHE HAS DENIED PAIN T/O SHIFT, ABD IN SOFT AND NON-TENDER, SHE STATES THAT SHE WEARS DENTURES AT THE RESIDENTIAL BUT THAT THEY WERE STOLEN SOME TIME AGO, SHE HAS DENIED SOB SINCE ARRIVING TO FLOOR AND SATS HAVE REMAINED IN MID 90'S ON HIGH-FLOW O2 SUPPORT. SHE REQUIRES ASSISTX1 TO USE BEDPAN AND IS INCONTINENT OF BOWEL AND BLADDER. VITAL SIGNS HAVE REMAINED STABLE T/O SHIFT.
[2020-08-16] VITALS (13 sets, daily range): BP systolic 114–141; BP diastolic 43–76; PULSE 74–98; RESP 18–20; TEMP 36.6–37; O2SAT 87–96; BMI 35.8
--- NOTE | 2020-08-16 00:01 | XR_ITS ---
PROCEDURE INFORMATION: Exam: XR Chest Exam date and time: 08/16/2020 12:01 AM Age: 70 years old Clinical indication: Cough; Patient HX: F/u SOA, pneumonia TECHNIQUE: Imaging protocol: XR of the chest. Views: 1 view. COMPARISON: CR XR CHEST PORTABLE 08/15/2020 8:20 AM FINDINGS: Lungs: Ill-defined right upper and left greater than right lower lung opacities. Pleural spaces: No definite pleural fluid. Heart/Mediastinum: Borderline heart size and vascularity. Bones/joints: Unremarkable. IMPRESSION: 1. Borderline heart size and vascularity. 2. Suspicion for right upper and left greater than right lower lung infiltrates.
--- NOTE | 2020-08-16 02:48 | PC.NURSE ---
A&OX4. PT TOLERATING VAPOTHERM T/O SHIFT, FI02 AT 50% AT THIS TIME. PT HAS NOT HAD COUGH, NO SPUTUM PRODUCED. PT HAS BEEN IN BED RESTING MAJORITY OF SHIFT. PT INCONTINENT TO BLADDER. PT HAS HAD NO C/O PAIN/SOA THUS FAR. VSS WILL CONTINUE TO MONITOR.
[2020-08-16 07:27] LABS: Basophils % 0.1 % (0.1-2.0); Eosinophils % 0.3 % (0.1-12.0); Hematocrit 32.2 % (37.0-47.0); Lymphocytes # 1.6 K/mm3 (0.7-4.5); Mean Corpuscular HGB Conc 31.7 g/dL (31.8-35.4); Mean Corpuscular Hemoglobin 28.9 pg (27.0-31.2); Mean Corpuscular Volume 91.2 fl (81-99); Mean Platelet Volume 8.2 fl (7.4-10.4); Monocytes # 0.6 K/mm3 (0.1-1.0); Monocytes % 7.6 % (1.7-9.3); Neutrophils # 5.7 K/mm3 (1.8-7.8); Platelet Count 218 K/mm3 (142-424); Red Blood Count 3.53 M/mm3 (4.20-5.40); Red Cell Distribution Width 13.8 % (11.5-17.5); White Blood Count 7.9 K/mm3 (4.8-10.8)
[2020-08-16 07:33] LABS: Chloride 95 mmol/L (98-107); Potassium 4.4 mmoL/L (3.5-5.1); Sodium 139 mmol/L (136-145)
[2020-08-16 07:36] LABS: Blood Urea Nitrogen 13 mg/dl (7-17); Calcium 8.5 mg/dl (8.4-10.2); Creatinine Clearance Estimated 69 mL/min (50-200); Estimated Glomerular Filt Rate 83 ml/min (>60); GFR (African American) 100 ML/MIN (>60); Glucose 160 mg/dl (74-100)
[2020-08-16 07:43] LABS: Anion Gap 9.4 mEq/L (5-15); Carbon Dioxide 39 mmol/L (22.0-30.0)
[2020-08-16 07:54] LABS: Hemoglobin 10.2 g/dL (12.2-16.2)
--- NOTE | 2020-08-16 09:40 | CA_ITS ---
APPROVED REPORT EXAM: Comprehensive 2D, Doppler, and color-flow Echocardiogram Reporting Consultant: Dinorah Davalos RDCS Ht: 4 ft 11 in Wt: 182lbs BSA: 1.77 BP: 141/57 mmHg Indications: COPD, bilateral pneumonia, Respiratory failure Echo Enhancing Agent Comments: Technically limited exam due to body habitus, lung impedence and patient intolerance. 2D Dimensions LVDd 4.55 cm F: 3.9 - 5.3 LVEF (Visual) 53.80 % LVDs 3.29 cm F: 2.2 - 3.5 LVEF (Rasmussen's) 59.30 % F: 54 - 74 LVOT 2.10 cm (M/F) 1.5-2.5 LV Volume 75.20 mL F: 46 - 106 LV Volume Index 42.890331 mL/m2 F: 29 - 61 LA Volume 45.40 mL LA Volume Index 25.675931 mL/m2 (M/F) 16-34 M-Mode Dimensions RVDd 3.42 cm (0.9-2.6) LA Diam 3.59 cm (1.9-4.0) LVDd 4.22 cm (3.5-5.7) Ao Diam 2.62 cm (2.0-3.7) LVDs 3.38 cm (3.5-5.7) IVSd 0.84 cm (0.6-1.1) PWd 0.80 cm (0.6-1.1) EF (Teich) 51.00% EPSs 1.49 cm FS 26.00% EDV (Teich) 79.50 mL TAPSE 2.09 (<1.7) ESV (Teich) 46.80 mL LV Diastology E Decel Time 207.00 (160-240 msec) E/A Ratio 1.22 MED E' 8.10 (< 7 cm/sec) MED A' 9.70 cm/s E'/MED E' Ratio 15.88 (>14) LAT E' 9.10 (<10 cm/sec) LAT A' 12.40 cm/s E/LAT E' Ratio 14.13 (>14) Aortic Valve LVOT Max 121.00 (70-110 cm/s) LVOT VTI 23.70 cm AoV Peak Nitin. 180.00 (50-130 cm/s) AO Peak GR. 12.90 mmHg AO Mean GR. 6.80 (<5 mmHg) AO VTI 34.08 (18-25 cm) VANESSA (VTI) 2.41 (2.5-4.5 cm2) Mitral Valve MV A Velocity 105.00 (40-130 cm/s) E/A Ratio 1.22 MV Decel. Time 207.00 (160-240 ms) Pulmonary Valve PV Peak Velocity 89.00 (50-150 cm/s) Tricuspid Valve TR P. Velocity 163.00 cm/s RAP Estimate 10.00 mmHg RVSP 20.60 mmHg Left Ventricle Left atrium is mildly enlarged, left ventricle is normal size, mild concentric left ventricular hypertrophy, visually estimated ejection fraction 55% with no regional wall motion abnormality, grade 1 diastolic dysfunction seen with tissue Doppler evidence of raise left atrial pressure. Right Ventricle Right atrium and right ventricle are mildly enlarged with normal contractility. Aortic Valve Aortic valve is minimally thickened and fibrosed, there is no aortic stenosis or aortic insufficiency. Mitral Valve Mitral valve leaflets are minimally thickened, there is no significant mitral stenosis, there is mild mitral regurgitation. Tricuspid Valve Tricuspid grossly normal, there is mild tricuspid regurgitation, tricuspid regurgitation jet velocity is inadequate for calculation of the right ventricular systolic pressure. Pulmonic Valve Pulmonic valve is poorly visualized. Great Vessels Aortic root is normal size. Pericardium No significant pericardial effusion noted. Conclusion 1. Mild biatrial enlargement, normal left ventricular size, mild concentric left ventricular hypertrophy, visually estimated ejection fraction 55% with no regional wall motion abnormality, grade 1 diastolic dysfunction seen with tissue Doppler evidence of raise left atrial pressure. 2. Mildly enlarged right ventricle with normal contractility. 3. Mild mitral and tricuspid regurgitation. 4. No significant pericardial effusion noted. Electronically signed by : Micah Liu, 08/16/2020 18:55:54
--- NOTE | 2020-08-16 09:40 | HMH.PULMCON ---
*Admission Date: 08/15/20 *Reason for consult:: Acute on chronic hypoxic and hypercarbic respiratory failure *History of present illness: Ms. Holland is 70 y/o female prior smoker following in pulmonary clinic for for her COPD. This patient remains on multiple hospital admissions for hypercarbic respiratory however she denied use noninvasive ventilation or to get evaluated for sleep apnea. Patient on this visit complains of worsening weakness when she presented to her PCP during which it was thought that she is having worsening respiratory failure and eventually admitted to the hospital for further management [facility] History Medical History: Reports:: Anxiety, Congestive Heart Failure, Chronic Obstructive Pulmonary Disease (COPD), Diabetes Mellitus Type 2, Hyperlipidemia, Hypertension, Peripheral Vascular Disease Denies:: Cancer, Diabetes Mellitus Type 1, Internal Pacemaker, MRSA *Have you ever received a pneumonia vaccine?: No *Have you received a flu vaccine this season?: No Other Medical History: Reports: Arthritis, Sinus Problems, Other Other Surgeries: Yes: No Previous Surgery, Cholecystectomy, Colonoscopy, , Hysterectomy-Total. No: Pacemaker Amputation: No Fractures: No - *Social History Last grade of school completed: High school graduate Smoking Status: Former smoker Tobacco Type: cigarettes # Packs/Day (cigarettes): 1 #Yrs smoked (if former smoker): 50 Alcohol Intake: never Alcohol Intake Frequency:: 3 or more drinks per day Substance Use Type: denies use *Occupational Status:: retired Housing: [facility] Household Members: other *Travel in the last 8 weeks: None - Psychiatric History Pschychiatric History:: Reports:: Anxiety, Bipolar Disorder Family Hx:: Diabetes, Coronary Artery Disease ROS - Cons Reports fatigue, Reports weakness - ENT Denies change in voice, Denies nasal congestion, Denies nasal discharge - Card Reports shortness of breath with activity - Resp Respiratory: Denies change in phlegm color, Reports dyspnea on exertion, Denies excessive phlegm production - GI Gastrointestingal: Denies: abdominal pain - [place] Musculoskeletal: Reports abnormal gait, Reports back pain - Psych Reports abnormal sleep pattern Meds Home Medications Medication Instructions Recorded Confirmed Type Quetiapine Fumarate [Seroquel 25mg 25 mg PO HS 07/01/18 08/15/20 History tablet] Metformin HCl [Metformin ER 500 mg PO BID 04/13/19 08/15/20 History Osmotic] Spironolactone [Spironolactone 25 mg PO 0800,1700 04/13/19 08/15/20 History 25mg Tablet] Cholecalciferol (Vitamin D3) 400 unit PO BID 04/20/19 08/15/20 History [Vitamin D3] Ondansetron [Zofran 4mg ODT] 4 mg PO Q8HP PRN 04/20/19 08/15/20 History hydrocodone 5 mg-acetaminophen 325 1 tab PO BID PRN #60 tab 08/25/19 08/15/20 Rx mg tablet Acetaminophen [Acetaminophen Extra 500 mg PO Q4HP PRN 11/20/19 08/15/20 History Strength] Omeprazole [Omeprazole 20mg 20 mg PO DAILY 11/20/19 08/15/20 History Capsule] Lidocaine [Aspercreme Lidocaine] 1 patch TP DAILYP PRN 11/21/19 08/15/20 History guaiFENesin [Guaifenesin] 200 mg PO Q6HP PRN 11/21/19 08/15/20 History alendronate 70 mg tablet 70 mg PO WEEKLY 12/09/19 08/15/20 History gabapentin 100 mg capsule 100 mg PO TID #90 cap 04/15/20 08/15/20 Rx albuterol sulfate 90 mcg/actuation 1 inh INHALATION QID PRN #8.5 g 05/26/20 08/15/20 Rx aerosol inhaler lorazepam 0.5 mg tablet 0.25 mg PO BID #30 tab 06/07/20 08/15/20 Rx Buspirone HCl [Buspar 5mg tablet] 5 mg PO BID 08/15/20 08/15/20 History Maury/D3/Mag11/Zinc/Extension Course Coordinator/Moi/Bor 1 each PO BID 08/15/20 08/15/20 History [Caltrate 600+D Plus Tablet] Diclofenac Sodium [Voltaren 20 gm TP TID 08/15/20 08/15/20 History Arthritis Pain] Fluticasone/Umeclidin/Vilanter 1 puff IH DAILY 08/15/20 08/15/20 History [Trelegy Ellipta 100-62.5-25] Lactulose [Lactulose 20gm/30ml 20 gm PO DAILYP PRN 08/15/20 08/15/20 History Oral Soln] Manisha
[2020-08-16 10:06] LABS: NT Pro Brain Natriuretic Pep. 712 pg/mL (0-125)
--- NOTE | 2020-08-16 10:21 | HMH.ACPN2 ---
Internal Medicine - PN: Subj *Date: 08/16/20 *Time: 12:52 Interval history: 70-year-old female patient sitting up in bed, she reports she feels better today than she did yesterday no shortness of breath episodes during the night. Oxygenation 91% on 25 L Vapotherm. She is on ceftriaxone and azithromycin, pulmonology to see Exam Vital signs and Labs for Last 24 Hours: Temp Pulse Resp BP Pulse Ox 97.9 F 78 20 141/57 H 89 L 08/16/20 07:33 08/16/20 07:33 08/16/20 07:33 08/16/20 07:33 08/16/20 09:33 Laboratory Results - last 24 hr 08/15/20 10:17: Urine Color Yellow, Urine Appearance Turbid, Urine pH 8.0, Ur Specific [place] 1.020, Urine Protein Trace, Urine Glucose (UA) Negative, Urine Ketones Negative, Urine Blood Negative, Urine Nitrate Negative, Urine Bilirubin Negative, Urine Urobilinogen 1.0, Ur Leukocyte Esterase Negative, Urine RBC None, Urine WBC None, Ur Squamous Epith Cells 10-20, Urine Bacteria None, Urine Yeast 1+ 08/16/20 06:27: WBC 7.9, RBC 3.53 L, Hgb 10.2 L D, Hct 32.2 L, MCV 91.2, MCH 28.9, MCHC 31.7 L, RDW 13.8, Plt Count 218, MPV 8.2, Neut % (Auto) 72.0, Lymph % (Auto) 20.0, [place] % (Auto) 7.6, Eos % (Auto) 0.3, Baso % (Auto) 0.1, Neut # (Auto) 5.7, Lymph # (Auto) 1.6, [place] # (Auto) 0.6, Eos # (Auto) 0.0, Baso # (Auto) 0.0 08/16/20 06:27: Sodium 139, Potassium 4.4, Chloride 95 L, Carbon Dioxide 39 H, Anion Gap 9.4, BUN 13 D, Creatinine 0.70, Estimated Creat Clear 69, Estimated GFR 83, Est GFR ( Amer) 100, Glucose 160 H D, Calcium 8.5 08/16/20 06:27: NT-Pro-B Natriuret Pep 712 H I & O for Last 24 hours: Intake & Output 08/13/20 08/14/20 08/15/20 08/16/20 23:59 23:59 23:59 23:59 Intake Total 680 / 680 1565 / 1565 Balance 680 / 680 1565 / 1565 Weight 178 lb 9.191 oz 182 lb 9 oz Microbiology Reports for the Last 24 Hours: Microbiology 08/15/20 08:12 Nasopharyngeal Coronavirus COVID-19 PCR - Final - Constitutional obese - *Routine HEENT Exam Head: Present: normocephalic Eye: Present: EOMI ENT: Present: mucous membranes moist - *Routine Neck Exam Present: trachea midline. Absent: tracheal deviation - *Routine Respiratory Exam Present: wheezes, crackles. Absent: accessory muscle use - *Routine Cardiovascular Exam Present: RRR - *Routine Abdominal Exam Present: soft, normoactive bowel sounds. Absent: tenderness, guarding - *Routine Extremities Exam Present: edema, pulses intact. Absent: cyanosis, clubbing, calf tenderness - *Routine Skin Exam Present: intact, dry, warm. Absent: cyanosis, erythema - *Routine Neurological Exam Present: alert. Absent: motor deficit, pronator drift - Routine Psychiatric Exam Present: normal affect, normal thought process. Absent: auditory hallucinations, visual hallucinations Assessment and Plan (1) Acute on chronic respiratory failure with hypoxia and hypercapnia Status: Acute Category: Medical Code(s): J96.21 - Acute and chronic respiratory failure with hypoxia; J96.22 - Acute and chronic respiratory failure with hypercapnia (2) Bilateral pneumonia Status: Acute Qualifiers: Pneumonia type: due to unspecified organism Lung location: unspecified part of lung Qualified Code(s): J18.9 - Pneumonia, unspecified organism Category: Medical Code(s): J18.9 - Pneumonia, unspecified organism (3) Cardiomegaly Status: Acute Category: Medical Code(s): I51.7 - Cardiomegaly (4) Pickwickian syndrome Status: Acute Category: Medical Code(s): E66.2 - Morbid (severe) obesity with alveolar hypoventilation - Assessment and plan all Dx Assessment and Plan for all problems:: Rounded with Dr. Dennison, all orders per Dr. Dennison: 1. Consult pulmonary 2. Continue Rocephin, azithromycin 3. Wean O2 as tolerated
--- NOTE | 2020-08-16 10:23 | HMH.SLDYSPHA ---
Speech & Language Evaluation Speech/Language Dysphagia Evaluation Start: 08/16/20 10:19 Freq: ONCE Status: Active Protocol: Document 08/16/20 10:19 DAVID (Rec: 08/16/20 10:23 DAVID [id number]) Dysphagia Assess/Goals/Plan Assessment Date of Evaluation: 08/16/20 Evaluation Type Initial Certification Assessment/Problems Dysphagia Does Patient Qualify for Service No Qualify/Failure Comment Patient showed no overt signs/ symptoms of aspiration. Diet modifications made due to lack of dentition. Recommendations PHYSICIAN CERTIFICATION: The specified therapy services are required, authorized, and reviewed every 30 days. Diet Recommendations Mechanical soft with chopped meats Liquid Type Recommendations Normal/Thin SL Swallow Guidelines Standard Aspiration Prec. Dysphagia Swallow Precautions/Strategies Sitting Upright (90 deg),Small Bites and Sips,Alternate Liquids/Solids Plan Pt/Guardian verbally ack understanding Yes of dx/prognosis/goals G -code Required No Speech & Language HPI Language Primary Language Spanish General Information General Current Food Consistancy Regular,Thin Liquids Dentition Edentulous Oxygen Status Venturi Mask Facial Symmetry Symmetrical Patient Orientation Person,Place,Time,Situation Ability to Follow Directions Excellent Communication Ability No Impairment Dysphagia:Food Presentation Evaluation Food Type Pureed,Mechanical Soft,Regular ,Liquid,Pudding Dysphagia Evaluation Summary Ms. Holland was given the following consistencies: thins via straw and open cup, pudding, pureed, mechanical soft, and regular. No overt signs or symptoms of aspiration noted. At this time , it is recommended that she be downgraded to mechanical soft with chopped meats with thin liquids due to lack of dentition. ST not recommended at this time. Stroke Dysphagia Assessment PHYSICIAN CERTIFICATION: I certify the specified therapy services for Charla Holland are required, authorized, and reviewed every 30 days.
--- NOTE | 2020-08-16 11:20 | SW/DCPLANNER ---
This patient currently resides at [facility]. Carolyn with [facility] has stated that patient is [facility] level of care. I will continue to follow up with Carolyn until patient is medically stable for discharge. Discharge date is unknown at this time.
--- NOTE | 2020-08-16 12:48 | PC.NURSE ---
Sputum induced, pt unable to make productive cough. Encouraged to continue to cough. Specimen cup left at bedside.
[2020-08-16 14:01] LABS: Adenovirus,PCR Not Detected (NotDetected); Bordetella Pertussis Not Detected (NotDetected); Chlamydophila Pneumoniae, PCR Not Detected (NotDetected); Coronavirus 229E Not Detected (NotDetected); Coronavirus NL63 Not Detected (NotDetected); Coronavirus OC43 Not Detected (NotDetected); Coronovirus HKU1,PCR Not Detected (NotDetected); Human Metapneumovirus Not Detected (NotDetected); Influenza A, PCR Not Detected (NotDetected); Influenza AH1, 2009 Not Detected (NotDetected); Influenza AH1, PCR Not Detected (NotDetected); Influenza AH3,PCR Not Detected (NotDetected); Influenza B, PCR Not Detected (NotDetected); Mycoplasma Pneumoniae, PCR Not Detected (NotDetected); Parainfluenza 1, PCR Not Detected (NotDetected); Parainfluenza 2, PCR Not Detected (NotDetected); Parainfluenza 3, PCR Not Detected (NotDetected); Parainfluenza 4, PCR Not Detected (NotDetected); Respiratory Syncytial Virus Not Detected (NotDetected); Rhinovirus/Enterovirus Not Detected (NotDetected)
--- NOTE | 2020-08-16 17:40 | PC.NURSE ---
PT IS RESTING IN BED. PT HAS BEEN TALKATIVE/ALERT T/O THE SHIFT. O2 SATURATION 90-92% ON VAPOTHERM. EATING AND DRINKING WELL. LUNG SOUNDS HAVE SCATTERED WHEEZES. ABDOMEN SOFT/DISTENDED WITH ACTIVE BOWEL SOUNDS. NO COMPLAINTS OF DISCOMFORT/SOA. PT IS INCONTINENT WITH PURWICK IN PLACE. PT HAS DIURESED WELL SINCE IV LASIX. PT STATES SHE HAS TENDERNESS IN HER BLE. VSS. WILL CONTINUE TO MONITOR
[2020-08-17] VITALS (10 sets, daily range): BP systolic 96–127; BP diastolic 52–85; PULSE 71–98; RESP 16–22; TEMP 36.6–37.2; O2SAT 88–95; BMI 35.6
--- NOTE | 2020-08-17 03:03 | PC.NURSE ---
A&OX4. PT TOLERATING VAPOTHERM, O2 SAT IN LOW 90S. PT HAS HAD NO C/O PAIN/COUGH THUS FAR. PT SLEEPING T/O MAJORITY OF SHIFT. VSS WILL CONTINUE TO MONITOR.
[2020-08-17 07:33] LABS: Blood Urea Nitrogen 16 mg/dl (7-17); Calcium 8.4 mg/dl (8.4-10.2); Chloride 97 mmol/L (98-107); Creatinine Clearance Estimated 69 mL/min (50-200); Estimated Glomerular Filt Rate 83 ml/min (>60); GFR (African American) 100 ML/MIN (>60); Glucose 148 mg/dl (74-100); Potassium 3.9 mmoL/L (3.5-5.1); Sodium 140 mmol/L (136-145)
[2020-08-17 07:40] LABS: Basophils % 0.1 % (0.1-2.0); Eosinophils # 0.1 K/mm3 (0.0-0.4); Eosinophils % 0.7 % (0.1-12.0); Hematocrit 34.3 % (37.0-47.0); Hemoglobin 10.8 g/dL (12.2-16.2); Lymphocytes % 23.3 % (10-50); Mean Corpuscular HGB Conc 31.6 g/dL (31.8-35.4); Mean Corpuscular Hemoglobin 28.8 pg (27.0-31.2); Mean Corpuscular Volume 91.1 fl (81-99); Mean Platelet Volume 7.5 fl (7.4-10.4); Monocytes # 0.6 K/mm3 (0.1-1.0); Monocytes % 7.3 % (1.7-9.3); Neutrophils # 5.9 K/mm3 (1.8-7.8); Neutrophils % 68.5 % (37.0-80.0); Platelet Count 225 K/mm3 (142-424); Red Blood Count 3.76 M/mm3 (4.20-5.40); Red Cell Distribution Width 14.2 % (11.5-17.5); White Blood Count 8.7 K/mm3 (4.8-10.8)
[2020-08-17 07:41] LABS: Anion Gap 9.9 mEq/L (5-15); Carbon Dioxide 37 mmol/L (22.0-30.0)
--- NOTE | 2020-08-17 09:07 | HMH.ACPN2 ---
Internal Medicine - PN: Subj *Date: 08/17/20 *Time: 21:09 Interval history: 70-year-old female patient lying in bed Vapotherm intact. She denies any respiratory distress or chest pain during the night, she reports she is not any more short of breath than usual. Reports she was up to the side of the bed and tolerated that well. Exam Vital signs and Labs for Last 24 Hours: Temp Pulse Resp BP Pulse Ox 98.2 F 89 20 122/62 92 L 08/17/20 08:00 08/17/20 08:00 08/17/20 08:00 08/17/20 08:00 08/17/20 08:00 Laboratory Results - last 24 hr 08/16/20 06:27: NT-Pro-B Natriuret Pep 712 H 08/16/20 13:55: Chlamy pneumoniae PCR Not detected, Adenovirus (PCR) Not detected, B. pertussis DNA (PCR) Not detected, Coronavirus OC43 (PCR) Not detected, Coronavirus HKU1 (PCR) Not detected, Coronavirus 229E (PCR) Not detected, Coronavirus NL63 (PCR) Not detected, Human Metapneumovir PCR Not detected, Influenza A (H1) PCR Not detected, Influ A (H1N1/09) PCR Not detected, Influenza A (H3) PCR Not detected, Influenza Type A (PCR) Not detected, Influenza Type B (PCR) Not detected, M. pneumoniae (PCR) Not detected, Parainfluenza 1 (PCR) Not detected, Parainfluenza 2 (PCR) Not detected, Parainfluenza 3 (PCR) Not detected, Parainfluenza 4 (PCR) Not detected, RSV (PCR) Not detected, Entero/Rhino (PCR) Not detected 08/17/20 07:14: WBC 8.7, RBC 3.76 L, Hgb 10.8 L, Hct 34.3 L, MCV 91.1, MCH 28.8, MCHC 31.6 L, RDW 14.2, Plt Count 225, MPV 7.5, Neut % (Auto) 68.5, Lymph % (Auto) 23.3, [place] % (Auto) 7.3, Eos % (Auto) 0.7, Baso % (Auto) 0.1, Neut # (Auto) 5.9, Lymph # (Auto) 2.0, [place] # (Auto) 0.6, Eos # (Auto) 0.1, Baso # (Auto) 0.0 08/17/20 07:14: Sodium 140, Potassium 3.9, Chloride 97 L, Carbon Dioxide 37 H, Anion Gap 9.9, BUN 16, Creatinine 0.70, Estimated Creat Clear 69, Estimated GFR 83, Est GFR ( Amer) 100, Glucose 148 H, Calcium 8.4 I & O for Last 24 hours: Intake & Output 08/14/20 08/15/20 08/16/20 08/17/20 23:59 23:59 23:59 23:59 Intake Total 680 / 680 2525 / 2525 180 / 180 Output Total 1900 / 2750 850 / 850 Balance 680 / 680 625 / -225 -670 / -670 Weight 178 lb 9.191 oz 182 lb 9 oz 181 lb 8 oz Microbiology Reports for the Last 24 Hours: Microbiology 08/15/20 08:55 Blood Blood Culture - Preliminary NO GROWTH AFTER 48 HOURS 08/15/20 08:45 Blood Blood Culture - Preliminary NO GROWTH AFTER 48 HOURS - Constitutional no acute distress - *Routine HEENT Exam Head: Present: normocephalic Eye: Present: EOMI ENT: Present: mucous membranes moist - *Routine Neck Exam Present: trachea midline. Absent: tracheal deviation - *Routine Respiratory Exam Present: wheezes. Absent: accessory muscle use - *Routine Cardiovascular Exam Present: RRR - *Routine Abdominal Exam Present: soft, normoactive bowel sounds, obese. Absent: tenderness, firm - *Routine Extremities Exam Present: edema, pulses intact. Absent: cyanosis, full ROM, calf tenderness - *Routine Skin Exam Present: intact, dry, warm. Absent: cyanosis, erythema - *Routine Neurological Exam Present: alert, oriented X3, motor deficit. Absent: pronator drift - Routine Psychiatric Exam Present: normal affect, normal thought process. Absent: auditory hallucinations, visual hallucinations Assessment and Plan (1) Acute on chronic respiratory failure with hypoxia and hypercapnia Status: Acute Category: Medical Code(s): J96.21 - Acute and chronic respiratory failure with hypoxia; J96.22 - Acute and chronic respiratory failure with hypercapnia (2) Bilateral pneumonia Status: Acute Qualifiers: Pneumonia type: due to unspecified organism Lung location: unspecified part of lung Qualified Code(s): J18.9 - Pneumonia, unspecified organism Category: Medical Code(s): J18.9 - Pneumonia, unspecified organism (3) Cardiomegaly Status: Acute Category: Medical Code(s): I51.7 - Cardiome
--- NOTE | 2020-08-17 10:05 | PC.NURSE ---
Pt weaned down to 4L NC at this time. Cont pulse ox placed on pt. o2 sat 91-92% at this time.
--- NOTE | 2020-08-17 11:00 | HMH.OTEV ---
OT Inpatient Evaluation Rehab OT IP Evaluation Start: 08/17/20 09:15 Freq: ONCE Status: Complete Protocol: Document 08/17/20 10:54 RICH (Rec: 08/17/20 10:59 RICH [id number]) Rehab OT IP Assessment Subjective History *Admission Date: 08/15/20 *Chief complaint: resp distress *History of present illness: 70 yr old female presented to [facility] via ambulance from [place] for soa. Pt states on saturday she began having soa and congestion but did not want to be checked out. pt states over the weekend she has not been eating well or doing much due to soa. pt admitted placed on vapertherm. pt has hx of copd. Pt confused and keeps repeating self. Pt states she feels she is confused and foggy headed. Chest x-ray on 08/15/20- IMPRESSION: 1. Borderline heart size and vascularity. 2. Suspicion for right upper and left greater than right lower lung infiltrates. [facility] History I have reviewed the patient's past medical history: Yes Medical History: Reports:: Anxiety, Congestive Heart Failure, Chronic Obstructive Pulmonary Disease (COPD), Diabetes Mellitus Type 2, Hyperlipidemia, Hypertension, Peripheral Vascular Disease. Subjective Resident of LTC at [facility] for the past two years. Patient verbalize recieving assistance for all ADLs except for self feeding and requires assistance for transfers/ ambulation with usage of wheelchair. I can get up but I use a wheelchair to move around. Patient sitting up on BSC at arrival of laci
--- NOTE | 2020-08-17 11:38 | HMH.PULMPN ---
Internal Medicine - PN: Subj *Date: 08/17/20 *Time: 11:38 Interval history: No acute respiratory vents overnight. Patient continued to improve. Weaned to 4 L nasal cannula this morning. Exam - Constitutional Constitutional:: Present: no acute distress, comfortable - HENMT Exam HENMT: Present: normocephalic, atraumatic - Eye Exam Eyes:: Present: normal appearance both eyes and related structures - Neck Exam Neck:: Present: normal visual inspection - Respiratory Exam Respiratory:: Present: able to speak in complete sentences, no respiratory distress, normal respiratory effort, wheezing - Cardiovascular Exam Cardiac:: Present: S1, S2 - GI Exam GI:: Present: soft - Skin Exam Skin: Present: warm, no rash - Neurological Exam Neurological: Present: alert, awake, normal cognition - Extremities Exam Extremities: Present: no cyanosis, no clubbing, no edema Assessment and Plan (1) Acute on chronic respiratory failure with hypoxia and hypercapnia Status: Acute Category: Medical Code(s): J96.21 - Acute and chronic respiratory failure with hypoxia; J96.22 - Acute and chronic respiratory failure with hypercapnia (2) Bilateral pneumonia Status: Acute Qualifiers: Pneumonia type: due to unspecified organism Lung location: unspecified part of lung Qualified Code(s): J18.9 - Pneumonia, unspecified organism Category: Medical Code(s): J18.9 - Pneumonia, unspecified organism (3) Cardiomegaly Status: Acute Category: Medical Code(s): I51.7 - Cardiomegaly (4) Pickwickian syndrome Status: Acute Category: Medical Code(s): E66.2 - Morbid (severe) obesity with alveolar hypoventilation - Assessment and plan all Dx Assessment and Plan for all problems:: #COPD exacerbation: #Community-acquired pneumonia: #Acute on chronic hypoxic and hypercarbic respiratory failure: Ms. Dunbar is 70-year-old female prior smoker carries a diagnosis of COPD, pulmonary hypertension, multiple prior admissions for hypercarbic respiratory failure, denies use of her noninvasive ventilation and sleep apnea evaluation presented to hospital with worsening weakness along with hypoxic hypercarbic respiratory failure. Afebrile with no evidence of leukocytosis. VBG on admission showed hypoxic hypercarbic respiratory failure. Chest x-ray showed bilateral lower lobe pulmonary infiltrates on repeat chest x-ray from showed questionable worsening effusion in the left side. COVID-19 PCR negative. Comprehensive respiratory viral PCR negative Patient was initiated on ceftriaxone azithromycin for community-acquired pneumonia. Patient respiratory status continued to improve, wean from high flow nasal cannula 4 L oxygen supplementation. Speech and swallow evaluation did not show any obvious evidence of aspiration, recommended mechanical soft diet given patient being edentulous. Echocardiogram showed biatrial enlargement , EF of 55 with no regional wall abnormalities, showed grade 1 LV diastolic dysfunction. RVSP at 20.6. Received 1 dose of Lasix yesterday. Plan: -Continue ceftriaxone azithromycin, can de-escalate levofloxacin to complete a total of 5-day course -Continue prednisone 40 mg daily for total of 5 days -Continue DuoNebs every 6 hours, budesonide every 12 scheduled -Continue oxygen supplementation to maintain O2 saturation goal of 88 to 92%, wean nasal cannula oxygen requirements as tolerated #Thank you for involving pulmonary in this patient care. We will continue to follow. Please call with any further questions or concerns.
--- NOTE | 2020-08-17 12:02 | HMH.PTEV ---
Physical Therapy Evaluation Rehab PT IP Evaluation Start: 08/17/20 09:14 Freq: ONCE Status: Active Protocol: Document 08/17/20 11:50 SANDI (Rec: 08/17/20 12:02 SANDI [id number]) Subjective/History History History Patient is a 70 year old female admitted to [facility] 08/15/20 for pneumonia/resp failure. Patient gian lives at [facility]. Patient reports that she was previously non- amubulatory but independent with all wheelchair trasnfers. Subjective Subjective I'm feeling better, but I just don't stand and walk. Rehab PT IP Eval Objective Appearance Patient Behavior Appropriate,Cooperative Patient Orientation Person,Place,Month Speech Pattern Clear,Appropriate Ambulation Patient Able to Ambulate No Balance Ability to Arise Unable Sitting Balance Steady, safe Standing Balance Unsteady Dynamic Standing Balance Ability Fair Transfers Sit to Stand Chair Transfer Ability Moderate x 1 (50% assist) ROM All Extremities PT ROM Status WFL MMT All Extremities PT MMT WFL Rehab PT IP prob,goals,plan Problems Date of Evaluation: 08/17/20 PT IP Problems Bed Mobility,Transfers,Gait, Balance,Self care,Safety Rehab Potential Rehab Potential Fair Plan PT Intervention Plan Bed Mobility,Transfers,Gait, Balance,Self care,Safety, Therapeutic Exercise PT Plan Frequency BID Duration LOS Discharge Goals Bed Transfer Ability Minimal x 1 (25% assist) Sit to Stand Chair Transfer Ability Minimal x 1 (25% assist) Ambulation Assistive Device Rolling Walker Ambulation Distance (feet) 25 Discharge Plan PT Discharge Plan Patient to discharge back to SNF once MD deems medically stable. G -code Required No PHYSICIAN CERTIFICATION: I certify the specified therapy services for Charla Holland are required, authorized, and reviewed every 30 days.
--- NOTE | 2020-08-17 16:09 | DIET.NUTRFU ---
PO intakes ~55%, weight stable, BG moderate-~175. ST saw her and recommended soft mechanical with thin liquids, diet altered. Pt states she has trouble eating dt tremors, requires assistance. Pt pleasantly confused and seemingly with very poor health literacy/understanding of her comorbidities, diet education/counseling given to best of ability for CHF, DM, COPD. Will f/u for further education and to meet nutritional needs t/o stay, continuing to monitor.
--- NOTE | 2020-08-17 18:20 | PC.NURSE ---
Pt has been in chair majority of this shift. Pt has been between 4-5 L NC w/ o2 sats 89% and above. Purewick remains in place. No other acute changes or complaints at this time. Will continue to monitor.
[2020-08-18] VITALS: BP 129/40; PULSE 88; RESP 18; TEMP 36.7; O2SAT 93
[2020-08-18 04:00] VITALS: BP 119/59; PULSE 66; RESP 18; TEMP 36.4; O2SAT 95
[2020-08-18 05:42] VITALS: PULSE 75; PULSE 82; O2SAT 97
[2020-08-18 05:57] VITALS: BMI 37.0
[2020-08-18 06:31] LABS: Basophils % 0.2 % (0.1-2.0); Eosinophils # 0.2 K/mm3 (0.0-0.4); Eosinophils % 1.7 % (0.1-12.0); Hematocrit 33.4 % (37.0-47.0); Hemoglobin 10.7 g/dL (12.2-16.2); Lymphocytes # 2.1 K/mm3 (0.7-4.5); Lymphocytes % 22.3 % (10-50); Mean Corpuscular HGB Conc 31.9 g/dL (31.8-35.4); Mean Corpuscular Hemoglobin 29.2 pg (27.0-31.2); Mean Corpuscular Volume 91.6 fl (81-99); Mean Platelet Volume 7.9 fl (7.4-10.4); Monocytes # 0.7 K/mm3 (0.1-1.0); Monocytes % 7.1 % (1.7-9.3); Neutrophils # 6.4 K/mm3 (1.8-7.8); Neutrophils % 68.7 % (37.0-80.0); Platelet Count 223 K/mm3 (142-424); Red Blood Count 3.65 M/mm3 (4.20-5.40); Red Cell Distribution Width 14.3 % (11.5-17.5); White Blood Count 9.3 K/mm3 (4.8-10.8)
[2020-08-18 06:34] LABS: Chloride 96 mmol/L (98-107); Sodium 138 mmol/L (136-145)
[2020-08-18 06:37] LABS: Potassium 4.6 mmoL/L (3.5-5.1)
[2020-08-18 06:38] LABS: Anion Gap 7.6 mEq/L (5-15); Blood Urea Nitrogen 17 mg/dl (7-17); Calcium 8.5 mg/dl (8.4-10.2); Carbon Dioxide 39 mmol/L (22.0-30.0); Creatinine Clearance Estimated 72 mL/min (50-200); Estimated Glomerular Filt Rate 62 ml/min (>60); GFR (African American) 75 ML/MIN (>60); Glucose 173 mg/dl (74-100)
--- NOTE | 2020-08-18 07:23 | PC.NURSE ---
5LNC throughout shift without difficulty. alert and oriented. purwick in place. vss. call light in reach. will continue to monitor
[2020-08-18 08:00] VITALS: BP 128/60; PULSE 94; RESP 20; TEMP 36.6; O2SAT 92
--- NOTE | 2020-08-18 09:31 | HMH.PULMPN ---
Internal Medicine - PN: Subj *Date: 08/18/20 *Time: 09:31 Interval history: No acute respiratory vents overnight. Patient continued to remain on nasal cannula, this morning on 3 L without any respiratory distress Exam - Constitutional Constitutional:: Present: no acute distress, comfortable - HENMT Exam HENMT: Present: normocephalic, atraumatic - Eye Exam Eyes:: Present: normal appearance both eyes and related structures - Neck Exam Neck:: Present: normal visual inspection - Respiratory Exam Respiratory:: Present: able to speak in complete sentences, lungs clear, normal breath sounds, no respiratory distress - Cardiovascular Exam Cardiac:: Present: S1, S2 - GI Exam GI:: Present: soft - Skin Exam Skin: Present: warm, no rash, dry - Neurological Exam Neurological: Present: alert, awake, normal cognition - Extremities Exam Extremities: Present: no cyanosis, no clubbing, no edema - Psychiatric Exam Psychiatric: Present: normal affect Assessment and Plan (1) Acute on chronic respiratory failure with hypoxia and hypercapnia Status: Acute Category: Medical Code(s): J96.21 - Acute and chronic respiratory failure with hypoxia; J96.22 - Acute and chronic respiratory failure with hypercapnia (2) Bilateral pneumonia Status: Acute Qualifiers: Pneumonia type: due to unspecified organism Lung location: unspecified part of lung Qualified Code(s): J18.9 - Pneumonia, unspecified organism Category: Medical Code(s): J18.9 - Pneumonia, unspecified organism (3) Cardiomegaly Status: Acute Category: Medical Code(s): I51.7 - Cardiomegaly (4) Pickwickian syndrome Status: Acute Category: Medical Code(s): E66.2 - Morbid (severe) obesity with alveolar hypoventilation - Assessment and plan all Dx Assessment and Plan for all problems:: #COPD exacerbation: #Community-acquired pneumonia: #Acute on chronic hypoxic and hypercarbic respiratory failure: Ms. Dunbar is 70-year-old female prior smoker carries a diagnosis of COPD, pulmonary hypertension, multiple prior admissions for hypercarbic respiratory failure, denies use of her noninvasive ventilation and sleep apnea evaluation presented to hospital with worsening weakness along with hypoxic hypercarbic respiratory failure. Afebrile with no evidence of leukocytosis. VBG on admission showed hypoxic hypercarbic respiratory failure. Chest x-ray showed bilateral lower lobe pulmonary infiltrates on repeat chest x-ray from showed questionable worsening effusion in the left side. COVID-19 PCR negative. Comprehensive respiratory viral PCR negative Patient was initiated on ceftriaxone azithromycin for community-acquired pneumonia. Patient respiratory status continued to improve, wean from high flow nasal cannula 4 L oxygen supplementation. Speech and swallow evaluation did not show any obvious evidence of aspiration, recommended mechanical soft diet given patient being edentulous. Echocardiogram showed biatrial enlargement , EF of 55 with no regional wall abnormalities, showed grade 1 LV diastolic dysfunction. RVSP at 20.6. Patient respiratory status continued to improve, weaned to 4 L nasal cannula, decrease to 3 L this morning. Significant improvement in her wheezing. Plan: -Continue ceftriaxone azithromycin, can de-escalate levofloxacin to complete a total of 5-day course -Continue prednisone 40 mg daily for total of 5 days -Continue DuoNebs every 6 hours, budesonide every 12 scheduled -Continue oxygen supplementation to maintain O2 saturation goal of 88 to 92%, wean nasal cannula oxygen requirements as tolerated #Thank you for involving pulmonary in this patient care. We will follow in pulmonary clinic in 2 to 4 weeks. Please call with any further questions or concerns.
--- NOTE | 2020-08-18 09:48 | HMH.DCSUM ---
General - General Admission date:: 08/15/20 Discharge date: 08/18/20 HPI HPI: 70 yr old female presented to ed via ambulance from [place] for soa. Pt states on saturday she began having soa and congestion but did not want to be checked out. pt states over the weekend she has not been eating well or doing much due to soa. pt admitted placed on vapertherm. pt has hx of copd. Pt confused and keeps repeating self. Pt states she feels she is confused and foggy headed. Hospital Course Hospital Course: Laboratory Tests 08/15/20 08/15/20 08/15/20 07:55 07:55 07:55 WBC 9.9 RBC 3.89 L Hgb 11.4 L Hct 36.7 L MCV 94.5 MCH 29.3 MCHC 31.0 L RDW 13.8 Plt Count 217 MPV 7.5 Neut % (Auto) 71.3 Lymph % (Auto) 20.1 Day % (Auto) 6.2 Eos % (Auto) 2.2 Baso % (Auto) 0.2 Neut # (Auto) 7.1 Lymph # (Auto) 2.0 Day # (Auto) 0.6 Eos # (Auto) 0.2 Baso # (Auto) 0.0 VBG pH VBG pCO2 VBG pO2 VBG HCO3 VBG Total CO2 VBG O2 Saturation VBG Base Excess Sodium 140 Potassium 4.2 Chloride 92 L Carbon Dioxide 46 H* Anion Gap 6.2 BUN 7 Creatinine 0.70 Estimated Creat Clear 84 Estimated GFR 83 Est GFR ( Amer) 100 Glucose 218 H Lactate Calcium 8.8 Total Bilirubin 0.9 AST 16 ALT 13 Alkaline Phosphatase 68 Troponin I < 0.01 NT-Pro-B Natriuret Pep 566 H Total Protein 7.1 Albumin 3.8 Globulin 3.3 H Albumin/Globulin Ratio 1.2 Urine Color Urine Appearance Urine pH Ur Specific [place] Urine Protein Urine Glucose (UA) Urine Ketones Urine Blood Urine Nitrate Urine Bilirubin Urine Urobilinogen Ur Leukocyte Esterase Urine RBC Urine WBC Ur Squamous Epith Cells Urine Bacteria Urine Yeast Chlamy pneumoniae PCR Adenovirus (PCR) B. pertussis DNA (PCR) Coronavirus OC43 (PCR) Coronavirus HKU1 (PCR) Coronavirus 229E (PCR) Coronavirus NL63 (PCR) Human Metapneumovir PCR Influenza A (H1) PCR Influ A (H1N1/09) PCR Influenza A (H3) PCR Influenza Type A (PCR) Influenza Type B (PCR) M. pneumoniae (PCR) Parainfluenza 1 (PCR) Parainfluenza 2 (PCR) Parainfluenza 3 (PCR) Parainfluenza 4 (PCR) RSV (PCR) Entero/Rhino (PCR) 08/15/20 08/15/20 08/15/20 08:06 08:45 10:17 WBC RBC Hgb Hct MCV MCH MCHC RDW Plt Count MPV Neut % (Auto) Lymph % (Auto) Day % (Auto) Eos % (Auto) Baso % (Auto) Neut # (Auto) Lymph # (Auto) Day # (Auto) Eos # (Auto) Baso # (Auto) VBG pH 7.31 VBG pCO2 77.2 H VBG pO2 61.8 H VBG HCO3 38.3 H VBG Total CO2 40.7 H VBG O2 Saturation 94.3 H VBG Base Excess 12.2 H Sodium Potassium Chloride Carbon Dioxide Anion Gap BUN Creatinine Estimated Creat Clear Estimated GFR Est GFR ( Amer) Glucose Lactate 1.3 Calcium Total Bilirubin AST ALT Alkaline Phosphatase Troponin I NT-Pro-B Natriuret Pep Total Protein Albumin Globulin Albumin/Globulin Ratio Urine Color Yellow Urine Appearance Turbid Urine pH 8.0 Ur Specific [place] 1.020 Urine Protein Trace Urine Glucose (UA) Negative Urine Ketones Negative Urine Blood Negative Urine Nitrate Negative Urine Bilirubin Negative Urine Urobilinogen 1.0 Ur Leukocyte Esterase Negative Urine RBC None Urine WBC None Ur Squamous Epith Cells 10-20 Urine Bacteria None Urine Yeast 1+ Chlamy pneumoniae PCR Adenovirus (PCR) B. pertussis DNA (PCR) Coronavirus OC43 (PCR) Coronavirus HKU1 (PCR) Coronavirus 229E (PCR) Coronavirus NL63 (PCR) Human Metapneumovir PCR Influenza A (H1) PCR Influ A (H1N1) PCR Influenza A (H3) PCR Influenza Type A (PCR) Influenza Type B
== END 2020-08-18 11:00 | DRG 193 ==
LOC: ER 09:25 → 2ND 10:34
PROVIDERS: Internal Medicine Pulmonary Disease; Nurse Practitioner Family; Admitting Provider Family Medicine; Emergency Provider Emergency Medicine; PCP Emergency Medicine; Visit Provider Emergency Medicine
DX: J18.9 Pneumonia, unspecified organism (principal); J96.22 Acute and chronic respiratory failure with hypercapnia; E66.2 Morbid (severe) obesity with alveolar hypoventilation; I11.0 Hypertensive heart disease with heart failure; I50.9 Heart failure, unspecified; E11.9 Type 2 diabetes mellitus without complications; Z79.84 Long term (current) use of oral hypoglycemic drugs; Z87.891 Personal history of nicotine dependence; I27.20 Pulmonary hypertension, unspecified; Z68.37 Body mass index [BMI] 37.0-37.9, adult; Z79.899 Other long term (current) drug therapy
CPT/HCPCS: 36415; 71045; 80048; 80053; 81001; 82803; 83605; 83880; 84484; 85025; 87040; 87081; 87486; 87581; 87633; 87798; 92610; 93005; 93306; 94640; 94760; 94761; 96365; 96367; 96375; 97110; 97116; 97165; 97530; 99284; J0456; U0003

== ENCOUNTER 2020-09-19 19:26 | Inpatient (IN) | payer MEDICARE, MEDICAID, BC, SELFPAY ==
[2020-09-19] VITALS (8 sets, daily range): BP systolic 109–144; BP diastolic 53–79; PULSE 73–110; RESP 16–23; TEMP 36.8–37.7; O2SAT 88–95; BMI 30.9; BMI 27.6
--- NOTE | 2020-09-19 19:31 | XR_ITS ---
PROCEDURE INFORMATION: Exam: XR Chest Exam date and time: 09/19/2020 7:31 PM Age: 70 years old Clinical indication: Shortness of breath; Patient HX: SOA; Additional info: Hypoxia, tachycardia TECHNIQUE: Imaging protocol: XR of the chest. Views: 1 view. COMPARISON: CR XR CHEST PORTABLE 08/16/2020 5:09 AM FINDINGS: Lungs: Similar appearance of diffuse interstitial prominence/coarsening. Perceived hazy airspace opacities in the peripheral right mid to lower lung and left mid lung could represent superimposed pneumonia, versus pulmonary edema. Pleural spaces: Small right and trace left pleural effusions. No pneumothorax. Heart/Mediastinum: Unchanged mild cardiomegaly. Aortic atherosclerosis. Bones/joints: Osteopenia. Scattered degenerative changes. IMPRESSION: 1. Chronic diffuse interstitial prominence. Suggestion of superimposed bilateral pneumonia or pulmonary edema. 2. Small right and trace left pleural effusions.
--- NOTE | 2020-09-19 19:34 | HMH.EDSOB ---
ED Disposition Condition on Discharge: Serious - Critical Care Critical Care Time: No <Melany Barajas - Last Filed: 09/19/20 19:59> <Jarret Dennison - Last Filed: 09/19/20 21:15> Clinical Impression: COPD exacerbation, Pickwickian syndrome, Acute exacerbation of chronic obstructive airways disease, Obesity (BMI 30.0-34.9), Severe sepsis with acute organ dysfunction Respiratory failure with hypoxia and hypercapnia Qualifiers: Chronicity: acute on chronic Qualified Code(s): J96.21 - Acute and chronic respiratory failure with hypoxia; J96.22 - Acute and chronic respiratory failure with hypercapnia Diabetes mellitus Qualifiers: Diabetes mellitus type: type 2 Diabetes mellitus emt intermediate insulin use: unspecified emt intermediate insulin use status Diabetes mellitus complication status: with other specified complication Qualified Code(s): E11.69 - Type 2 diabetes mellitus with other specified complication Disposition: Admitted As Inpatient Attestation: On 09/19/20, the high probability of a clinically significant, sudden or life threatening deterioration of the following system(s) required my full and direct attention, intervention and personal management. The time I documented below is in addition to time spent performing reported procedures but includes the following listed in this critical care notation. Medical Decision Making - Medical Records Medical records reviewed: Yes: I reviewed the patient's medical records. - José Miguel Inquiry Pt receiving controlled substance: No <Melany Barajas - Last Filed: 09/19/20 19:59> - Lab Data Lab results reviewed: Yes: I reviewed the patient's lab results. Result diagrams: 09/19/20 19:27 09/19/20 19:27 - Radiology Data #1 Image(s): Chest Image Reviewed: Yes I have reviewed radiologist's interpretation Preliminary Findings: Abnormal <Jarret Dennison - Last Filed: 09/19/20 21:15> Vital Signs: 09/19/20 19:23 09/19/20 20:03 Pulse Rate 101 H Pulse Rate [Right] 107 H Respiratory Rate 23 Blood Pressure [Right Arm] 139/53 L Blood Pressure Mean [Right Arm] 81 Blood Pressure Source [Right Arm] Automatic Cuff 02 Sat by Pulse Oximetry 95 93 L Oxygen Delivery Method Simple Mask Nasal Cannula Oxygen Flow Rate (LPM) 4 3 - Lab Data Lab Results 09/19/20 17:15: Magnesium 1.7 09/19/20 19:27: WBC 10.3, RBC 3.85 L, Hgb 10.6 L, Hct 35.3 L, MCV 91.8, MCH 27.5, MCHC 29.9 L, RDW 13.8, Plt Count 239, MPV 7.5, Neut % (Auto) 77.6, Lymph % (Auto) 16.0, [place] % (Auto) 5.2, Eos % (Auto) 0.9, Baso % (Auto) 0.3, Neut # (Auto) 8.0 H, Lymph # (Auto) 1.7, [place] # (Auto) 0.5, Eos # (Auto) 0.1, Baso # (Auto) 0.0 09/19/20 19:27: Sodium 138, Potassium 4.5, Chloride 91 L, Carbon Dioxide 43 H*, Anion Gap 8.5, BUN 9, Creatinine 0.70, Estimated Creat Clear 68, Estimated GFR 83, Est GFR ( Amer) 100, Glucose 239 H, Calcium 9.0, Total Bilirubin 0.9, AST 20, ALT 14, Alkaline Phosphatase 76, Troponin I < 0.01, NT-Pro-B Natriuret Pep 765 H, Total Protein 7.3, Albumin 3.8, Globulin 3.5 H, Albumin/Globulin Ratio 1.1 09/19/20 19:27: Lactate 0.7 09/19/20 19:27: SARS-CoV-2 (PCR) Not detected, Influenza A Untype (PCR) Not detected, Influenza Type B (PCR) Not detected 09/19/20 20:00: VBG pH 7.27 L, VBG pCO2 89.6 H, VBG HCO3 40.0 H, VBG Total CO2 42.9 H, VBG O2 Saturation 78.2 H, VBG Base Excess 10.3 H Orders (Tests/Meds): ED MEDICATIONS Generic Name Dose Route Start Last Admin Trade Name Freq PRN Reason Stop Dose Admin Piperacillin Sod/Tazobactam 50 mls @ 100 mls/hr 09/19/20 19:45 09/19/20 20:31 Sod 3.375 gm/ Sodium Chloride IV 10/03/20 19:44 100 mls/hr Q6H TRACEY Administration Protocol Vancomycin HCl 2,000 mg/ 250 mls @ 125 mls/hr 09/19/20 19:45 Sodium Chloride IV 10/03/20 19:44 Q24H TRACEY Protocol Sodium Chloride 1,000 mls @ 999 mls/hr 09/19/20 20:45 Sod Chlor 0.9% 1000ml Bag IV 09/19/20 21:45 .Q1H1M TRACEY Miscellaneous 1 each 09/19/20 21:15
[2020-09-19 19:54] LABS: Coronavirus 19, PCR Not Detected (NotDetected); Influenza A, PCR Not Detected (NotDetected); Influenza B, PCR Not Detected (NotDetected)
[2020-09-19 20:05] LABS: VBG Oxygen Saturation 78.2 % (50-70)
[2020-09-19 20:07] LABS: VBG PH 7.27 mmol/L (7.31-7.41)
[2020-09-19 20:08] LABS: VBG Base Excess 10.3 mmol/L (-2.4-2.3); VBG PCO2 89.6 mmol/L (35-51); VBG Total CO2 42.9 mmol/L (23-27)
[2020-09-19 20:17] LABS: Basophils % 0.3 % (0.1-2.0); Eosinophils # 0.1 K/mm3 (0.0-0.4); Eosinophils % 0.9 % (0.1-12.0); Hematocrit 35.3 % (37.0-47.0); Hemoglobin 10.6 g/dL (12.2-16.2); Lymphocytes # 1.7 K/mm3 (0.7-4.5); Mean Corpuscular HGB Conc 29.9 g/dL (31.8-35.4); Mean Corpuscular Hemoglobin 27.5 pg (27.0-31.2); Mean Corpuscular Volume 91.8 fl (81-99); Mean Platelet Volume 7.5 fl (7.4-10.4); Monocytes # 0.5 K/mm3 (0.1-1.0); Monocytes % 5.2 % (1.7-9.3); Neutrophils % 77.6 % (37.0-80.0); Platelet Count 239 K/mm3 (142-424); Red Blood Count 3.85 M/mm3 (4.20-5.40); Red Cell Distribution Width 13.8 % (11.5-17.5); White Blood Count 10.3 K/mm3 (4.8-10.8)
[2020-09-19 20:30] LABS: Chloride 91 mmol/L (98-107); Sodium 138 mmol/L (136-145)
[2020-09-19 20:31] LABS: Potassium 4.5 mmoL/L (3.5-5.1)
[2020-09-19 20:33] LABS: Alanine Aminotransferase 14 U/L (12-78); Albumin Level 3.8 g/dl (3.5-5.0); Albumin/Globulin Ratio 1.1 (1.1-1.8); Alkaline Phosphatase 76 U/L (38-126); Aspartate Amino Transferase 20 U/L (14-36); Bilirubin,Total 0.9 mg/dl (0.2-1.3); Blood Urea Nitrogen 9 mg/dl (7-17); Creatinine Clearance Estimated 68 mL/min (50-200); Estimated Glomerular Filt Rate 83 ml/min (>60); GFR (African American) 100 ML/MIN (>60); Globulin 3.5 g/dL (1.3-3.2); Total Protein,Serum 7.3 g/dl (6.3-8.2)
[2020-09-19 20:34] LABS: Glucose 239 mg/dl (74-100); Lactic Acid 0.7 mmol/L (0.7-2.1)
[2020-09-19 20:43] LABS: NT Pro Brain Natriuretic Pep. 765 pg/mL (0-125)
[2020-09-19 20:44] LABS: Magnesium 1.7 mg/dl (1.6-2.3)
[2020-09-19 20:48] LABS: Troponin I < 0.01 ng/ml (0.00-0.034)
[2020-09-19 20:49] LABS: Anion Gap 8.5 mEq/L (5-15); Carbon Dioxide 43 mmol/L (22.0-30.0)
--- NOTE | 2020-09-19 20:50 | PC.NURSE ---
Pt received duoneb in route by EMS.
--- NOTE | 2020-09-19 20:57 | PC.NURSE ---
Spoke with Júnior at [facility] to confirm Vanc dosing. He suggests 1500mg IV Q24H for 81kg
--- NOTE | 2020-09-19 21:09 | PC.NURSE ---
Pt received breathing tx in ED on arrival per
--- NOTE | 2020-09-19 21:17 | PC.NURSE ---
Report called to Zoraida at this time
--- NOTE | 2020-09-19 21:19 | PC.NURSE ---
Devante NOVA RN SPOKE WITH PHARMACY FOR VANC CONSULT. PHARMACY STATED 1500MG Q24HR.
--- NOTE | 2020-09-19 21:23 | PC.NURSE ---
2100: REPOSITIONED PATIENT TO RIGHT SIDE. PATIENT REPORTS SHE IS MORE COMFORTABLE.
--- NOTE | 2020-09-19 21:31 | PC.NURSE ---
Yee GASTON transferring pt to 2nd fl via stretcher
--- NOTE | 2020-09-19 21:31 | PC.NURSE ---
pt arrived to floor via stretcher at this time
[2020-09-19 23:25] LABS: Troponin I < 0.01 ng/ml (0.00-0.034)
[2020-09-20] VITALS (17 sets, daily range): BP systolic 105–135; BP diastolic 38–63; PULSE 70–110; RESP 16–20; TEMP 36.2–36.9; O2SAT 4–95
[2020-09-20 02:22] LABS: Troponin I < 0.01 ng/ml (0.00-0.034)
--- NOTE | 2020-09-20 03:28 | PC.NURSE ---
Patient admitted 09/19/2020. Arrived to floor and was placed on bipap. Ativan given to patient for anxiety due to bipap. Once placed on bipap patient o2 sats mid 90's. No complaints of pain. A&Ox4. Rested well throughout rest of shift. VSS. Patient cooperative with treatment thus far. Patient voiced no further concerns to RN.
[2020-09-20 05:00] LABS: POC Glucose,Bedside 295 (70-110)
--- NOTE | 2020-09-20 07:19 | HMH.PHAVTE ---
[facility] Pharmacy VTE Monitoring - Patient Demographics Admission date: 09/19/20 Report Date: 09/20/20 Time: 07:19 Allergies/Adverse Reactions: Patient Allergies orange juice Allergy (Mild, Verified 08/29/20 13:56) Rash Height: 1.7 m Weight: 79.917 kg Patient Problems: Current Active Problems Severe sepsis with acute organ dysfunction (Acute) Respiratory failure with hypoxia and hypercapnia (Chronic) Pickwickian syndrome (Acute) COPD exacerbation (Acute) Acute exacerbation of chronic obstructive airways disease (Acute) Diabetes mellitus (Chronic) Obesity (BMI 30.0-34.9) (Chronic) - VTE Risk Labs: VTE Related Lab Results Hgb 10.6 g/dL (12.2-16.2) L 09/19/20 19:27 Hct 35.3 % (37.0-47.0) L 09/19/20 19:27 Plt Count 239 K/mm3 (142-424) 09/19/20 19:27 BUN 9 mg/dl (7-17) 09/19/20 19:27 Creatinine 0.70 mg/dl (0.52-1.04) 09/19/20 19:27 Estimated Creat Clear 68 mL/min (50-200) 09/19/20 19:27 Clinical Trial Participant: No - Prophylaxis VTE Prophylaxis Ordered?: Yes Types of VTE Prophylaxis: TEDS Knee High Location of Applied Device: Bilateral Lower Extremeties
[2020-09-20 07:20] LABS: Chloride 95 mmol/L (98-107); Sodium 139 mmol/L (136-145)
[2020-09-20 07:21] LABS: Potassium 4.8 mmoL/L (3.5-5.1)
[2020-09-20 07:23] LABS: Anion Gap 9.8 mEq/L (5-15); Blood Urea Nitrogen 13 mg/dl (7-17); Carbon Dioxide 39 mmol/L (22.0-30.0); Creatinine Clearance Estimated 67 mL/min (50-200); Estimated Glomerular Filt Rate 83 ml/min (>60); GFR (African American) 100 ML/MIN (>60)
[2020-09-20 07:24] LABS: Calcium 8.4 mg/dl (8.4-10.2); Eosinophils % 0.3 % (0.1-12.0); Glucose 323 mg/dl (74-100); Hematocrit 33.8 % (37.0-47.0); Hemoglobin 9.8 g/dL (12.2-16.2); Lymphocytes # 0.7 K/mm3 (0.7-4.5); Magnesium 2.5 mg/dl (1.6-2.3); Mean Corpuscular Hemoglobin 27.1 pg (27.0-31.2); Mean Corpuscular Volume 93.2 fl (81-99); Mean Platelet Volume 7.4 fl (7.4-10.4); Monocytes # 0.2 K/mm3 (0.1-1.0); Neutrophils # 6.4 K/mm3 (1.8-7.8); Neutrophils % 88.6 % (37.0-80.0); Platelet Count 178 K/mm3 (142-424); Red Blood Count 3.63 M/mm3 (4.20-5.40); Red Cell Distribution Width 13.6 % (11.5-17.5); White Blood Count 7.3 K/mm3 (4.8-10.8)
[2020-09-20 07:42] LABS: MANUAL DIFFERENTIAL MANUAL DIFFERENTIAL (MANUAL DIFF)
--- NOTE | 2020-09-20 08:15 | HMH.PHACONS ---
- Pharmacy Consult Date: 09/20/20 Time: 08:15 Referring provider: DR. CARNES Reason for Consult:: VANCOMYCIN DOSING Allergies and ADEs:: Allergies Allergy/AdvReac Type Severity Reaction Status Date / Time orange juice Allergy Mild Rash Verified 08/29/20 13:56 Home Medications:: Home Medications Medication Instructions Recorded Confirmed Type Quetiapine Fumarate [Seroquel 25mg 25 mg PO HS 07/01/18 09/19/20 History tablet] Metformin HCl [Metformin ER 1,000 mg PO BID 04/13/19 09/19/20 History Osmotic] Spironolactone [Spironolactone 25 mg PO 0800,1700 04/13/19 09/19/20 History 25mg Tablet] Cholecalciferol (Vitamin D3) 400 unit PO BID 04/20/19 09/19/20 History [Vitamin D3] Ondansetron [Zofran 4mg ODT] 4 mg PO Q8HP PRN 04/20/19 09/19/20 History Acetaminophen [Acetaminophen Extra 500 mg PO Q4HP PRN 11/20/19 09/19/20 History Strength] Omeprazole [Omeprazole 20mg 20 mg PO DAILY 11/20/19 09/19/20 History Capsule] Lidocaine [Aspercreme Lidocaine] 1 patch TP DAILYP PRN 11/21/19 09/19/20 History guaiFENesin [Guaifenesin] 200 mg PO Q6HP PRN 11/21/19 09/19/20 History alendronate 70 mg tablet 70 mg PO WEEKLY 12/09/19 09/19/20 History gabapentin 100 mg capsule 100 mg PO TID #90 cap 04/15/20 09/19/20 Rx albuterol sulfate 90 mcg/actuation 1 inh INHALATION QID PRN #8.5 g 05/26/20 09/19/20 Rx aerosol inhaler lorazepam 0.5 mg tablet 0.25 mg PO BID #30 tab 06/07/20 09/19/20 Rx Buspirone HCl [Buspar 5mg tablet] 5 mg PO BID 08/15/20 09/19/20 History Maury/D3/Mag11/Zinc/Spd Tech/Moi/Bor 1 tab PO BID 08/15/20 09/20/20 History [Caltrate 600+D Plus Tablet] Diclofenac Sodium [Voltaren 20 gm TP TID 08/15/20 09/19/20 History Arthritis Pain] Fluticasone/Umeclidin/Vilanter 1 puff IH DAILY 08/15/20 09/19/20 History [Pamela Ellipta 100-62.5-25] Loperamide HCl [Imodium 2 mg 2 mg PO Q4HP PRN 08/15/20 09/19/20 History capsule] Ipratropium/Albuterol Sulfate 3 ml IH Q6HP PRN 30 Days #120 08/18/20 09/19/20 Rx [Duoneb 3mL neb] ampul.neb hydrocodone 5 mg-acetaminophen 325 1 tab PO BID PRN #60 tab 09/13/20 09/19/20 Rx mg tablet Calcium Carbonate [Calcium Antacid] 200 mg PO QID PRN 09/19/20 09/19/20 History Ibuprofen 200 mg PO Q6HP PRN 09/19/20 09/20/20 History Lactulose [Constulose] 30 ml PO DAILY PRN 09/19/20 09/20/20 History Height: 1.7 m Weight: 79.917 kg Laboratory Results:: Laboratory Results - last 24 hr 09/19/20 17:15: Magnesium 1.7 09/19/20 19:27: WBC 10.3, RBC 3.85 L, Hgb 10.6 L, Hct 35.3 L, MCV 91.8, MCH 27.5, MCHC 29.9 L, RDW 13.8, Plt Count 239, MPV 7.5, Neut % (Auto) 77.6, Lymph % (Auto) 16.0, [place] % (Auto) 5.2, Eos % (Auto) 0.9, Baso % (Auto) 0.3, Neut # (Auto) 8.0 H, Lymph # (Auto) 1.7, [place] # (Auto) 0.5, Eos # (Auto) 0.1, Baso # (Auto) 0.0 09/19/20 19:27: Sodium 138, Potassium 4.5, Chloride 91 L, Carbon Dioxide 43 H*, Anion Gap 8.5, BUN 9, Creatinine 0.70, Estimated Creat Clear 68, Estimated GFR 83, Est GFR ( Amer) 100, Glucose 239 H, Calcium 9.0, Total Bilirubin 0.9, AST 20, ALT 14, Alkaline Phosphatase 76, Troponin I < 0.01, NT-Pro-B Natriuret Pep 765 H, Total Protein 7.3, Albumin 3.8, Globulin 3.5 H, Albumin/Globulin Ratio 1.1 09/19/20 19:27: Lactate 0.7 09/19/20 19:27: SARS-CoV-2 (PCR) Not detected, Influenza A Untype (PCR) Not detected, Influenza Type B (PCR) Not detected 09/19/20 20:00: VBG pH 7.27 L, VBG pCO2 89.6 H, VBG pO2 Not Reportable, VBG HCO3 40.0 H, VBG Total CO2 42.9 H, VBG O2 Saturation 78.2 H, VBG Base Excess 10.3 H 09/19/20 22:47: Troponin I < 0.01 09/20/20 00:44: Troponin I < 0.01 09/20/20 04:53: POC Glucose 295 H 09/20/20 05:54: WBC 7.3 D, RBC 3.63 L, Hgb 9.8 L, Hct 33.8 L, MCV 93.2, MCH 27.1, MCHC 29.0 L, RDW 13.6, Plt Count 178 D, MPV 7.4, Neut % (Auto) 88.6 H, Lymph % (Auto) 9.0 L, [place] % (Auto) 2.0, Eos % (Auto) 0.3, Baso % (Auto) 0.0 L, Neut # (Auto) 6.4, Lymph # (Auto) 0.7, [place] # (Auto) 0.2, Eos # (Auto) 0.0, Baso # (Auto) 0.0 09/20/20 05:54: Sodium 139, Pot
[2020-09-20 08:36] LABS: Hypochromasia 2+; Lymphocytes % 5 % (10-50); Monocytes % 3 % (2-9); Neutrophils % 92 % (42-76); Nucleated Red Blood Cells 3; Platelet Estimate Normal; Total Cells Counted 100
--- NOTE | 2020-09-20 09:02 | HMH.HP ---
*Admission Date: 09/19/20 *Chief complaint: Shortnerss of Breath *History of present illness: Ms. Holland is a 70-year-old female with history of recurrent pneumonia, COPD on 4 L of oxygen at home, CAD, CHF, diabetes, hypertension who presents emergency department after being found confused with an oxygen saturation in the 70s. Unclear if she was wearing her home oxygen at that time. EMS got there and they placed her on 4 L and gave her a DuoNeb and oxygen saturations slowly improved in route. Patient is AO x3 reports that she has had shortness of breath chronically but may be worse today. She did use breathing treatments for the patient today. Denies any other symptoms including chest pain, abdominal pain, vomiting, lower extremity pain or swelling, history of PE or DVT. She does report a fever today and one episode of diarrhea yesterday (Per Dr. Barajas). Lab work revealed no leukocytosis, H/H stable Electrolytes nonactionable BMP 765 09/19/20 CXR: MPRESSION: 1. Chronic diffuse interstitial prominence. Suggestion of superimposed bilateral pneumonia or pulmonary edema. 2. Small right and trace left pleural effusions. Electronically signed by Samir Vu, 70-year-old female patient sitting up in bed on oxygen at 5 L, oxygen saturations 93%. She reports she is feeling better denies any shortness of breath or chest pain during the night [facility] History I have reviewed the patient's past medical history: Yes Medical History: Reports:: Anxiety, Congestive Heart Failure, Chronic Obstructive Pulmonary Disease (COPD), Diabetes Mellitus Type 2, Hyperlipidemia, Hypertension, Peripheral Vascular Disease Denies:: Cancer, Diabetes Mellitus Type 1, Internal Pacemaker, MRSA *Have you ever received a pneumonia vaccine?: Yes *Have you received a flu vaccine this season?: Yes Other Medical History: Reports: Arthritis, Sinus Problems, Other Other Surgeries: Yes: No Previous Surgery, Cholecystectomy, Colonoscopy, , Hysterectomy-Total, Other. No: Pacemaker Amputation: No Fractures: No - *Social History Smoking Status: Smoker, status unknown Tobacco Type: cigarettes # Packs/Day (cigarettes): 1 #Yrs smoked (if former smoker): 50 Alcohol Intake: never Alcohol Intake Frequency:: 3 or more drinks per day Substance Use Type: denies use *Occupational Status:: retired Housing: retirement Household Members: other *Travel in the last 8 weeks: None - Psychiatric History Pschychiatric History:: Reports:: Anxiety, Bipolar Disorder Family Hx:: Unable to obtain Review of Systems - Review of Systems Review of systems:: pertinent systems reviewed and negative unless documented below - Constitutional Reports fatigue, Denies anorexia, Denies chills - Eyes Denies blind spots, Denies double vision - ENT Denies abnormal hearing, Denies dizziness - *Cardiovascular Reports shortness of breath, Reports shortness of breath with activity, Denies chest pain, Denies chest pain with activity - *Respiratory Reports shortness of breath, Reports shortness of breath with activity, Denies coughing up blood - *Gastrointestinal Denies abdominal pain, Denies change in stools - *Musculoskeletal Denies muscle cramps, Denies muscle weakness - Integumentary/Breasts Denies change in skin color, Denies lesions - *Neurologic Denies localized weakness, Denies headache(s), Denies seizure-like activity - Psychiatric Denies anxiety, Denies change in appetite - Endocrine Denies cold intolerance, Denies rapid, pounding, or irregular heartbeat - Hematologic/Lymphatic Denies easy bruising, Denies enlarged lymph nodes - Allergic/Immunologic Denies lip swelling, Denies tongue swelling Meds Home Medications Medication Instructions Recorded Confirmed Type Quetiapine Fumarate [Seroquel 25mg 25 mg PO HS 07/01/18 09/19/20 History tablet] Metformin HCl [Metformin ER 1,000 mg PO BID 04/13/19 09/19/20 History Osmotic] Spironolacto
--- NOTE | 2020-09-20 09:44 | SW/DCPLANNER ---
Addendum entered by Shanel Benitez 09/22/20 10:29: Tona with [facility] has called and stated they will follow up with patient at [facility] tomorrow. Addendum entered by Shanel Benitez 09/22/20 10:00: This patient will discharge back to [facility] today. I have notified Carolyn with [facility] that this patient will return. I have also informed Carolyn that per MD patient information has been faxed to [facility] to follow up at [facility] once that patient returns. Addendum entered by Shanel Benitez 09/20/20 11:41: Per Smitha with [facility] this patient had a Trilogy machine ordered in the past but was not compliant with machine and was picked up by [facility]. Original Note: This patient currently resides at [facility] under ICF level of care. I will continue to follow up with Carolyn until patient is medically stable for discharge.
[2020-09-20 10:09] LABS: ABG Base Excess 9.3 mmol/L (-2.4-2.3); ABG HCO3 34.7 mmhg (22.0-26.0); ABG Oxygen Saturation 87 % (90-100); ABG PH 7.37 mmol/L (7.35-7.45); ABG PO2 50.4 mmhg (80-100); ABG TCO2 36.6 mmhg (23-27)
[2020-09-20 10:13] LABS: Oxygen 4L %; Source Left Radial
[2020-09-20 10:14] LABS: Allen's Test Y
[2020-09-20 10:16] LABS: ABG PCO2 62.1 mmhg (35.0-45.0)
--- NOTE | 2020-09-20 10:29 | PC.NURSE ---
spoke with julissa in respiratory about results of abg, verified name/bday. reported to noemy reynoso in md office
[2020-09-20 11:19] LABS: POC Glucose,Bedside 321 (70-110)
--- NOTE | 2020-09-20 11:35 | PC.NURSE ---
stanislwa smiley called and stated that he would like for patient to wear the bipap. patient is adamant she will not wear the bipap. educated why it was important and still refuses. patient did not have any urine output that was reported over night, md aware. she did have 1 episode of incontinence this far this shift.
[2020-09-20 16:57] LABS: POC Glucose,Bedside 311 (70-110)
--- NOTE | 2020-09-20 18:18 | PC.NURSE ---
PATIENT HAS DONE WELL THIS SHIFT. SINCE WAKING THIS MORNING HAS REFUSED BIPAP. REMAINS ON 4L WITH A SAT OF 87-91%. HAS HAD A GREAT APPETITE. ALERT AND ORIENTED. HAS BEEN UP TO CHAIR THIS SHIFT, AND NAPPED FOR A COUPLE OF HOURS ONCE BACK TO BED. FSBS ON HIGHER END IN 300S, COVERED WITH SLIDING SCALE. RINGS OUT NEEDED. HAS BEEN INCONTINENT OF URINE. VITALS STABLE
[2020-09-20 20:12] LABS: POC Glucose,Bedside 373 (70-110)
--- NOTE | 2020-09-20 22:17 | PC.NURSE ---
Addendum entered by Deandra Rasmussen RN 09/20/20 22:20: RN EDUCATED PATIENT ON THE IMPORTANCE OF BIPAP USE AND PATIENT STILL REFUSED. Original Note: RN WENT INTO PATIENTS ROOM AND PERFORMED PATIENTS HEAD TO TOE ASSESSMENT. AFTER ASSESSING THE PATIENT RN EXPLAINED TO PATIENT THAT SHE NEEDED TO WEAR HER BIPAP TONIGHT. PATIENT IS UNCOOPERATIVE WITH TREATMENT AND REFUSES TO WEAR BIPAP.
[2020-09-21] VITALS (11 sets, daily range): BP systolic 115–138; BP diastolic 55–68; PULSE 71–108; RESP 16–22; TEMP 36.7–37.3; O2SAT 88–95; BMI 28.5
--- NOTE | 2020-09-21 03:18 | INFXCTL.NOTE ---
Patient is A&Ox4. no complaints of pain. New IV placed this shift. Patient used BSC x2 assist. VSS. Patient refused to wear bipap remained around 93-95% on 4 liters. Patient's blood sugars were in the high 300's, insulin given. No further concerns voiced to RN.
--- NOTE | 2020-09-21 03:23 | PC.NURSE ---
Patient is a&ox4. No complaints of pain. VSS. Patient ambulated to bedside commode x2 assist. Patient refused bipap and is non compliant with treatment. Blood sugars in the higher 300's. rested well throughout shift. New IV was placed during this shift. No further concerns were voiced to RN.
[2020-09-21 05:12] LABS: POC Glucose,Bedside 300 (70-110)
[2020-09-21 06:53] LABS: Hemoglobin 9.6 g/dL (12.2-16.2); Lymphocytes # 0.7 K/mm3 (0.7-4.5); Lymphocytes % 5.8 % (10-50); Mean Corpuscular Hemoglobin 28.7 pg (27.0-31.2); Mean Corpuscular Volume 89.7 fl (81-99); Mean Platelet Volume 7.8 fl (7.4-10.4); Monocytes # 0.2 K/mm3 (0.1-1.0); Neutrophils # 10.5 K/mm3 (1.8-7.8); Neutrophils % 92.2 % (37.0-80.0); Platelet Count 209 K/mm3 (142-424); Red Blood Count 3.34 M/mm3 (4.20-5.40); Red Cell Distribution Width 14.7 % (11.5-17.5); White Blood Count 11.4 K/mm3 (4.8-10.8)
[2020-09-21 07:00] LABS: Anion Gap 6.7 mEq/L (5-15); Blood Urea Nitrogen 20 mg/dl (7-17); Calcium 8.1 mg/dl (8.4-10.2); Carbon Dioxide 39 mmol/L (22.0-30.0); Chloride 98 mmol/L (98-107); Creatinine Clearance Estimated 69 mL/min (50-200); Estimated Glomerular Filt Rate 99 ml/min (>60); GFR (African American) 120 ML/MIN (>60); Glucose 303 mg/dl (74-100); Potassium 4.7 mmoL/L (3.5-5.1); Sodium 139 mmol/L (136-145)
[2020-09-21 07:10] LABS: MANUAL DIFFERENTIAL MANUAL DIFFERENTIAL (MANUAL DIFF)
[2020-09-21 08:50] LABS: Lymphocytes % 5 % (10-50); Monocytes % 3 % (2-9); Neutrophils % 92 % (42-76); Nucleated Red Blood Cells 2; Total Cells Counted 100
[2020-09-21 08:51] LABS: Anisocytosis 1+; Hypochromasia 2+; Microcytosis 1+; Platelet Estimate Normal
[2020-09-21 11:11] LABS: POC Glucose,Bedside 348 (70-110)
--- NOTE | 2020-09-21 12:45 | HMH.ACPN2 ---
Internal Medicine - PN: Subj *Date: 09/21/20 *Time: 08:10 Interval history: pt states Exam Vital signs and Labs for Last 24 Hours: Temp Pulse Resp BP Pulse Ox 98.0 F 91 H 17 129/63 92 L 09/21/20 11:08 09/21/20 11:08 09/21/20 11:08 09/21/20 11:08 09/21/20 11:08 Laboratory Results - last 24 hr 09/20/20 16:35: POC Glucose 311 H* 09/20/20 19:38: POC Glucose 373 H* 09/21/20 00:10: Vancomycin Peak 23.0 09/21/20 04:58: POC Glucose 300 H 09/21/20 06:34: WBC 11.4 H D, RBC 3.34 L, Hgb 9.6 L, Hct 30.0 L, MCV 89.7, MCH 28.7, MCHC 32.0, RDW 14.7, Plt Count 209, MPV 7.8, Neut % (Auto) 92.2 H, Lymph % (Auto) 5.8 L, [place] % (Auto) 2.0, Eos % (Auto) 0.0 L, Baso % (Auto) 0.0 L, Neut # (Auto) 10.5 H, Lymph # (Auto) 0.7, [place] # (Auto) 0.2, Eos # (Auto) 0.0, Baso # (Auto) 0.0, Total Counted 100, Neutrophils % (Manual) 92 H, Lymphocytes % (Manual) 5 L, Monocytes % (Manual) 3, Nucleated RBCs 2, Platelet Estimate Normal, Hypochromasia 2+, Anisocytosis 1+, Microcytosis 1+ 09/21/20 06:34: Sodium 139, Potassium 4.7, Chloride 98, Carbon Dioxide 39 H, Anion Gap 6.7, BUN 20 H D, Creatinine 0.60, Estimated Creat Clear 69, Estimated GFR 99, Est GFR ( Amer) 120, Glucose 303 H, Calcium 8.1 L 09/21/20 10:59: POC Glucose 348 H* I & O for Last 24 hours: Intake & Output 09/19/20 09/20/20 09/21/20 09/22/20 11:59 11:59 11:59 11:59 Intake Total 2094 / 2094 2218 / 2218 Output Total 200 / 200 Balance 2093 Weight 176 lb 3 oz 181 lb 14.102 oz Microbiology Reports for the Last 24 Hours: Microbiology 09/19/20 23:30 Sputum - Expectorated Sputum Sputum Culture - Preliminary - Constitutional no acute distress - *Routine HEENT Exam Head: Present: normocephalic Eye: Present: PERRL ENT: Present: mucous membranes moist - *Routine Neck Exam Present: supple. Absent: lymphadenopathy - *Routine Respiratory Exam Present: CTA bilaterally - *Routine Cardiovascular Exam Present: RRR - *Routine Abdominal Exam Present: soft, normoactive bowel sounds. Absent: tenderness - *Routine Extremities Exam Present: normal capillary refill. Absent: cyanosis, clubbing, edema - *Routine Skin Exam Present: warm. Absent: rash - *Routine Neurological Exam Present: alert, oriented X3 - Routine Psychiatric Exam Present: normal affect Assessment and Plan (1) Severe sepsis with acute organ dysfunction Status: Acute Category: Medical Code(s): A41.9 - Sepsis, unspecified organism; R65.20 - Severe sepsis without septic shock (2) Pulmonary infiltrate Status: Acute Category: Medical Code(s): R91.8 - Other nonspecific abnormal finding of lung field (3) Hypoxia Status: Acute Category: Medical Code(s): R09.02 - Hypoxemia (4) Abnormal chest xray Status: Acute Category: Medical Code(s): R93.89 - Abnormal findings on diagnostic imaging of other specified body structures (5) Diabetes mellitus type 2 in nonobese Status: Chronic Category: Medical Code(s): E11.9 - Type 2 diabetes mellitus without complications (6) Morbid obesity with alveolar hypoventilation Status: Chronic Category: Medical Code(s): E66.2 - Morbid (severe) obesity with alveolar hypoventilation (7) Respiratory failure Status: Resolved Qualifiers: Chronicity: acute on chronic Respiratory failure complication: hypoxia and hypercapnia Qualified Code(s): J96.21 - Acute and chronic respiratory failure with hypoxia; J96.22 - Acute and chronic respiratory failure with hypercapnia Category: Medical Code(s): J96.90 - Respiratory failure, unspecified, unspecified whether with hypoxia or hypercapnia (8) Acute and chronic respiratory failure ([id number]) Status: Acute Category: Medical Code(s): J96.20 - Acute and chronic respiratory failure, unspecified whether with hypoxia or hypercapnia (9) Hyperlipidemia associated with type 2 diabetes mellitus Status: Chronic Category: Medical C
--- NOTE | 2020-09-21 15:28 | PC.NURSE ---
Pt up to chiar this shift. Report given to Darrion Hines RN
[2020-09-21 18:17] LABS: POC Glucose,Bedside 353 (70-110)
--- NOTE | 2020-09-21 19:01 | PC.NURSE ---
No acute changes this afternoon. VSS. CB in reach. Has been up to chair. Remains on 4 L.
[2020-09-21 20:21] LABS: POC Glucose,Bedside 345 (70-110)
[2020-09-21 22:03] LABS: Vancomycin,Trough 8.7 ug/mL (5.0-10.0)
[2020-09-22] VITALS: O2SAT 92
--- NOTE | 2020-09-22 03:14 | PC.NURSE ---
A&OX4. TOLERATING 4LNC WELL, O2 SAT REMAINS LOW 90S. PT CONTINUES TO REFUSE TO USE BIPAP, EVEN AFTER EDUCATION ON BENEFITS OF USAGE. PT HAS HAD NO C/O OF PAIN/SOA THUS FAR. PT SLEEPING AT INTERVALS. VSS WILL CONTINUE TO MONITOR.
[2020-09-22 03:30] VITALS: BP 124/68; PULSE 85; RESP 22; TEMP 36.7; O2SAT 93
[2020-09-22 04:57] VITALS: BMI 29.2
[2020-09-22 05:22] LABS: POC Glucose,Bedside 364 (70-110)
[2020-09-22 06:04] VITALS: PULSE 82
[2020-09-22 06:20] LABS: Eosinophils % 0.1 % (0.1-12.0); Hematocrit 29.6 % (37.0-47.0); Hemoglobin 9.2 g/dL (12.2-16.2); Lymphocytes # 0.4 K/mm3 (0.7-4.5); Lymphocytes % 3.6 % (10-50); Mean Corpuscular HGB Conc 31.2 g/dL (31.8-35.4); Mean Corpuscular Hemoglobin 28.2 pg (27.0-31.2); Mean Corpuscular Volume 90.4 fl (81-99); Mean Platelet Volume 8.3 fl (7.4-10.4); Monocytes # 0.2 K/mm3 (0.1-1.0); Neutrophils # 10.9 K/mm3 (1.8-7.8); Neutrophils % 94.3 % (37.0-80.0); Platelet Count 220 K/mm3 (142-424); Red Blood Count 3.27 M/mm3 (4.20-5.40); White Blood Count 11.6 K/mm3 (4.8-10.8)
[2020-09-22 06:22] LABS: MANUAL DIFFERENTIAL MANUAL DIFFERENTIAL (MANUAL DIFF)
[2020-09-22 06:35] LABS: Lymphocytes % 4 % (10-50); Neutrophils % 96 % (42-76); Total Cells Counted 100
[2020-09-22 06:36] LABS: Platelet Estimate Normal; RBC Morphology Normal
[2020-09-22 07:16] LABS: Anion Gap 11.4 mEq/L (5-15); Blood Urea Nitrogen 23 mg/dl (7-17); Calcium 7.9 mg/dl (8.4-10.2); Carbon Dioxide 36 mmol/L (22.0-30.0); Chloride 97 mmol/L (98-107); Creatinine Clearance Estimated 71 mL/min (50-200); Estimated Glomerular Filt Rate 62 ml/min (>60); GFR (African American) 75 ML/MIN (>60); Glucose 351 mg/dl (74-100); Potassium 4.4 mmoL/L (3.5-5.1); Sodium 140 mmol/L (136-145)
[2020-09-22 07:21] VITALS: BP 140/60; PULSE 97; RESP 21; TEMP 36.4; O2SAT 87
--- NOTE | 2020-09-22 09:39 | HMH.PHACONS ---
- Pharmacy Consult Date: 09/22/20 Time: 09:41 Referring provider: DR. CARNES Reason for Consult:: VANCOMYCIN LEVELS AND DOSE CHANGE Allergies and ADEs:: Allergies Allergy/AdvReac Type Severity Reaction Status Date / Time orange juice Allergy Mild Rash Verified 08/29/20 13:56 Home Medications:: Home Medications Medication Instructions Recorded Confirmed Type Quetiapine Fumarate [Seroquel 25mg 25 mg PO HS 07/01/18 09/19/20 History tablet] Metformin HCl [Metformin ER 1,000 mg PO BID 04/13/19 09/19/20 History Osmotic] Spironolactone [Spironolactone 25 mg PO 0800,1700 04/13/19 09/19/20 History 25mg Tablet] Cholecalciferol (Vitamin D3) 400 unit PO BID 04/20/19 09/19/20 History [Vitamin D3] Ondansetron [Zofran 4mg ODT] 4 mg PO Q8HP PRN 04/20/19 09/19/20 History Acetaminophen [Acetaminophen Extra 500 mg PO Q4HP PRN 11/20/19 09/19/20 History Strength] Omeprazole [Omeprazole 20mg 20 mg PO DAILY 11/20/19 09/19/20 History Capsule] Lidocaine [Aspercreme Lidocaine] 1 patch TP DAILYP PRN 11/21/19 09/19/20 History guaiFENesin [Guaifenesin] 200 mg PO Q6HP PRN 11/21/19 09/19/20 History alendronate 70 mg tablet 70 mg PO WEEKLY 12/09/19 09/19/20 History gabapentin 100 mg capsule 100 mg PO TID #90 cap 04/15/20 09/19/20 Rx albuterol sulfate 90 mcg/actuation 1 inh INHALATION QID PRN #8.5 g 05/26/20 09/19/20 Rx aerosol inhaler lorazepam 0.5 mg tablet 0.25 mg PO BID #30 tab 06/07/20 09/19/20 Rx Buspirone HCl [Buspar 5mg tablet] 5 mg PO BID 08/15/20 09/19/20 History Maury/D3/Mag11/Zinc/Fertilizer Applicator/Moi/Bor 1 tab PO BID 08/15/20 09/20/20 History [Caltrate 600+D Plus Tablet] Diclofenac Sodium [Voltaren 20 gm TP TID 08/15/20 09/19/20 History Arthritis Pain] Fluticasone/Umeclidin/Vilanter 1 puff IH DAILY 08/15/20 09/19/20 History [Pamela Barlowta 100-62.5-25] Loperamide HCl [Imodium 2 mg 2 mg PO Q4HP PRN 08/15/20 09/19/20 History capsule] Ipratropium/Albuterol Sulfate 3 ml IH Q6HP PRN 30 Days #120 08/18/20 09/19/20 Rx [Duoneb 3mL neb] ampul.neb hydrocodone 5 mg-acetaminophen 325 1 tab PO BID PRN #60 tab 09/13/20 09/19/20 Rx mg tablet Calcium Carbonate [Calcium Antacid] 200 mg PO QID PRN 09/19/20 09/19/20 History Ibuprofen 200 mg PO Q6HP PRN 09/19/20 09/20/20 History Lactulose [Constulose] 30 ml PO DAILY PRN 09/19/20 09/20/20 History Height: 1.7 m Weight: 84.453 kg Laboratory Results:: Laboratory Results - last 24 hr 09/21/20 10:59: POC Glucose 348 H* 09/21/20 17:42: POC Glucose 353 H* 09/21/20 20:03: POC Glucose 345 H* 09/21/20 20:58: Vancomycin Trough 8.7 09/22/20 05:13: POC Glucose 364 H* 09/22/20 06:03: WBC 11.6 H, RBC 3.27 L, Hgb 9.2 L, Hct 29.6 L, MCV 90.4, MCH 28.2, MCHC 31.2 L, RDW 15.0, Plt Count 220, MPV 8.3, Neut % (Auto) 94.3 H, Lymph % (Auto) 3.6 L, [place] % (Auto) 2.0, Eos % (Auto) 0.1, Baso % (Auto) 0.0 L, Neut # (Auto) 10.9 H, Lymph # (Auto) 0.4 L, [place] # (Auto) 0.2, Eos # (Auto) 0.0, Baso # (Auto) 0.0, Total Counted 100, Neutrophils % (Manual) 96 H, Lymphocytes % (Manual) 4 L, Platelet Estimate Normal, RBC Morphology Normal 09/22/20 06:03: Sodium 140, Potassium 4.4, Chloride 97 L, Carbon Dioxide 36 H, Anion Gap 11.4, BUN 23 H, Creatinine 0.90 D, Estimated Creat Clear 71, Estimated GFR 62, Est GFR ( Amer) 75 D, Glucose 351 H, Calcium 7.9 L Medical History: Reports:: Anxiety, Congestive Heart Failure, Chronic Obstructive Pulmonary Disease (COPD), Diabetes Mellitus Type 2, Hyperlipidemia, Hypertension, Peripheral Vascular Disease Denies:: Cancer, Diabetes Mellitus Type 1, Internal Pacemaker, MRSA Assessment and Plan (1) Severe sepsis with acute organ dysfunction Status: Acute Category: Medical Code(s): A41.9 - Sepsis, unspecified organism; R65.20 - Severe sepsis without septic shock (2) Pulmonary infiltrate Status: Acute Category: Medical Code(s): R91.8 - Other nonspecific abnormal finding of lung field (3) Hypoxia Status: Acute Category: Medical Co
--- NOTE | 2020-09-22 10:35 | HMH.DCSUM ---
General - General Admission date:: 09/19/20 Discharge date: 09/22/20 HPI HPI: Ms. Holland is a 70-year-old female with history of recurrent pneumonia, COPD on 4 L of oxygen at home, CAD, CHF, diabetes, hypertension who presents emergency department after being found confused with an oxygen saturation in the 70s. Unclear if she was wearing her home oxygen at that time. EMS got there and they placed her on 4 L and gave her a DuoNeb and oxygen saturations slowly improved in route. Patient is AO x3 reports that she has had shortness of breath chronically but may be worse today. She did use breathing treatments for the patient today. Denies any other symptoms including chest pain, abdominal pain, vomiting, lower extremity pain or swelling, history of PE or DVT. She does report a fever today and one episode of diarrhea yesterday (Per Dr. Barajas). Lab work revealed no leukocytosis, H/H stable Electrolytes nonactionable BMP 765 09/19/20 CXR: MPRESSION: 1. Chronic diffuse interstitial prominence. Suggestion of superimposed bilateral pneumonia or pulmonary edema. 2. Small right and trace left pleural effusions. Electronically signed by Samir Vu, 70-year-old female patient sitting up in bed on oxygen at 5 L, oxygen saturations 93%. She reports she is feeling better denies any shortness of breath or chest pain during the night Hospital Course Hospital Course: Laboratory Tests 09/19/20 09/19/20 09/19/20 17:15 19:27 19:27 WBC 10.3 RBC 3.85 L Hgb 10.6 L Hct 35.3 L MCV 91.8 MCH 27.5 MCHC 29.9 L RDW 13.8 Plt Count 239 MPV 7.5 Neut % (Auto) 77.6 Lymph % (Auto) 16.0 [place]mer % (Auto) 5.2 Eos % (Auto) 0.9 Baso % (Auto) 0.3 Neut # (Auto) 8.0 H Lymph # (Auto) 1.7 [place]mer # (Auto) 0.5 Eos # (Auto) 0.1 Baso # (Auto) 0.0 Total Counted Neutrophils % (Manual) Lymphocytes % (Manual) Monocytes % (Manual) Nucleated RBCs Platelet Estimate RBC Morphology Hypochromasia Anisocytosis Microcytosis Specimen Source O2 % ABG pH ABG pCO2 ABG pO2 ABG HCO3 ABG Total CO2 ABG O2 Saturation ABG Base Excess Jaylen Test VBG pH VBG pCO2 VBG pO2 VBG HCO3 VBG Total CO2 VBG O2 Saturation VBG Base Excess Sodium 138 Potassium 4.5 Chloride 91 L Carbon Dioxide 43 H* Anion Gap 8.5 BUN 9 Creatinine 0.70 Estimated Creat Clear 68 Estimated GFR 83 Est GFR ( Amer) 100 Glucose 239 H POC Glucose Lactate Calcium 9.0 Magnesium 1.7 Total Bilirubin 0.9 AST 20 ALT 14 Alkaline Phosphatase 76 Troponin I < 0.01 NT-Pro-B Natriuret Pep 765 H Total Protein 7.3 Albumin 3.8 Globulin 3.5 H Albumin/Globulin Ratio 1.1 Vancomycin Peak Vancomycin Trough SARS-CoV-2 (PCR) Influenza A Untype (PCR) Influenza Type B (PCR) 09/19/20 09/19/20 09/19/20 19:27 19:27 20:00 WBC RBC Hgb Hct MCV MCH MCHC RDW Plt Count MPV Neut % (Auto) Lymph % (Auto) [place] % (Auto) Eos % (Auto) Baso % (Auto) Neut # (Auto) Lymph # (Auto) [place] # (Auto) Eos # (Auto) Baso # (Auto) Total Counted Neutrophils % (Manual) Lymphocytes % (Manual) Monocytes % (Manual) Nucleated RBCs Platelet Estimate RBC Morphology Hypochromasia Anisocytosis Microcytosis Specimen Source O2 % ABG pH ABG pCO2 ABG pO2 ABG HCO3 ABG Total CO2 ABG O2 Saturation ABG Base Excess Jaylen Test VBG pH 7.27 L VBG pCO2 89.6 H VBG pO2 Not Reportable VBG HCO3 40.0 H VBG Total CO2 42.9 H VBG O2 Saturation 78.2 H VBG Base Excess 10.3 H Sodium Potassium Chloride Carbon Dioxide Anion Gap BUN Creatinine Estimated Creat Clear Estimated GFR Est GFR ( Amer) Gluco
[2020-09-22 11:21] VITALS: BP 135/68; PULSE 94; RESP 20; TEMP 36.9; O2SAT 90
[2020-09-22 11:51] LABS: POC Glucose,Bedside 313 (70-110)
[2020-09-22 13:25] VITALS: PULSE 88; PULSE 94; O2SAT 94
--- NOTE | 2020-09-22 14:28 | PC.NURSE ---
Called report to Dhara @ [facility] @ [phone]. Pt left via ems @ [phone].
== END 2020-09-22 14:10 | DRG 189 ==
LOC: ER 20:00 → 2ND 21:15
PROVIDERS: Nurse Practitioner Family; Admitting Provider Emergency Medicine; Emergency Provider Emergency Medicine; PCP Emergency Medicine; Visit Provider Emergency Medicine
DX: J96.22 Acute and chronic respiratory failure with hypercapnia (principal); J18.9 Pneumonia, unspecified organism; E66.2 Morbid (severe) obesity with alveolar hypoventilation; J44.1 Chronic obstructive pulmonary disease with (acute) exacerbation; J44.0 Chronic obstructive pulmonary disease with (acute) lower respiratory infection; J96.21 Acute and chronic respiratory failure with hypoxia; Z79.84 Long term (current) use of oral hypoglycemic drugs; Z87.01 Personal history of pneumonia (recurrent); Z99.81 Dependence on supplemental oxygen; I11.0 Hypertensive heart disease with heart failure; I50.9 Heart failure, unspecified; I25.10 Atherosclerotic heart disease of native coronary artery without angina pectoris; F17.210 Nicotine dependence, cigarettes, uncomplicated; Z20.822 Contact with and (suspected) exposure to COVID-19; E11.69 Type 2 diabetes mellitus with other specified complication; Z68.29 Body mass index [BMI] 29.0-29.9, adult; E78.5 Hyperlipidemia, unspecified; Z86.711 Personal history of pulmonary embolism; Z86.718 Personal history of other venous thrombosis and embolism; F31.9 Bipolar disorder, unspecified; F41.9 Anxiety disorder, unspecified
CPT/HCPCS: 36415; 71045; 80048; 80053; 80202; 82803; 82962; 83605; 83735; 83880; 84484; 85007; 85025; 87040; 87070; 87077; 87081; 87205; 94640; 94660; 94761; 96365; 96367; 96375; 99285; 99291; J2543; J3370; U0003

== ENCOUNTER → 2021-02-15 08:15 | Outpatient (CLI) | payer MEDICARE, MEDICAID, SELFPAY ==
--- NOTE | 2021-02-15 08:16 | CT_ITS ---
PROCEDURE: CT LUNG SCREENING CLINICAL INDICATION: lung cancer screening COMPARISON: CT AGCHEST CT angio chest from 07/11/[address] CHEST WO CON from 06/04/[address] CHEST WO CON from 02/17/2020 TECHNIQUE: The exam was performed on a [employer] Light Speed [address] scanner using 2.90 mGy CTDI. A low dose helical CT CHEST was performed on a multi-detector scanner. All CT scans at the facility use one or more dose reduction, viz: automated exposure control, ma/kV adjustment per patient size (including targeted exams where dose is matched to indication, i.e. head), or iterative reconstruction technique. The LDCT was performed in a facility that meets the criteria for the screening program. Data regarding this exam was submitted to ACR which is an approved registry. The order for this exam indicates that it came as a result of a lung cancer screening counseling shard decision-making visit that included all the elements required of such a visit including smoking cessation. The radiologist interpreting this exam meets the CMS criteria for the LDCT lung cancer screening program. The exam is reported using the Lung-RADS classification scale and reported to the ACR registry. NOTE: This study was performed for the specific purposes of lung cancer screening and is not an alternative to diagnostic chest CT. RADIATION DOSE: CTDI vol(CT dose Index-volume) = 2.90mG DLP (Dose Length Product) = 102.12 mGcm FINDINGS: COPD changes with centrilobular emphysema. Scattered areas of scarring. Subpleural calcification with nodularity noted in the right upper lobe posteriorly unchanged. Subpleural nodular thickening right upper lobe laterally not significantly changed. There are scattered calcified nodules also noted. There is prominence of the interstitium. No new suspicious nodules evident. OTHER FINDINGS: Coronary artery calcification. Mild wedge compression changes of T6 unchanged. IMPRESSION: Lung-RADS Category 2 Benign Appearance or Behavior Follow-up: Continue annual screening with LDCT in 12 months COPD with interstitial changes and scattered areas of scarring Dictated by: Jaylen Valentin MD 02/25/2021 10:27 Jaylen Valentin MD in [facility] 02/25/2021 10:27
[2021-02-15 09:10] VITALS: PULSE 71; PULSE 74
== END ==
PROVIDERS: PCP Emergency Medicine; Visit Provider Internal Medicine Pulmonary Disease
DX: Z87.891 Personal history of nicotine dependence (principal); Z12.2 Encounter for screening for malignant neoplasm of respiratory organs; R06.09 Other forms of dyspnea
CPT/HCPCS: 71271; 94060; 94640; 94727; 94729

== ENCOUNTER → 2021-02-23 10:56 | Outpatient (CLI) | payer MEDICARE, MEDICAID, SELFPAY ==
--- NOTE | 2021-02-23 11:00 | XR_ITS ---
PROCEDURE: XR CHEST 2V CLINICAL HISTORY: dyspnea COMPARISON: CT CT CHEST WO CON from 02/17/2020 CR XR CHEST PORTABLE from 08/15/2020 CR XR CHEST PORTABLE from 08/16/2020 CR XR CHEST PORTABLE from 09/19/2020 FINDINGS: The cardiomediastinal silhouette and pulmonary vascularity are within normal limits. There are chronic interstitial changes which does not appear significantly change compared to the previous exam. Chronic opacity in the right apex unchanged. Mild wedging of T6 which is stable. IMPRESSION: No acute finding. Chronic interstitial lung disease. Dictated by: Jaylen Valentin MD 02/23/2021 16:36 Jaylen Valentin MD in [facility] 02/23/2021 16:36
== END ==
PROVIDERS: PCP Emergency Medicine; Visit Provider Nurse Practitioner Family
DX: E11.69 Type 2 diabetes mellitus with other specified complication (principal); E66.9 Obesity, unspecified; E78.5 Hyperlipidemia, unspecified; I27.20 Pulmonary hypertension, unspecified; I73.9 Peripheral vascular disease, unspecified; J44.1 Chronic obstructive pulmonary disease with (acute) exacerbation; R06.03 Acute respiratory distress; Z74.09 Other reduced mobility
CPT/HCPCS: 71046

== ENCOUNTER 2021-02-23 13:27 | Emergency (ER) | payer MEDICARE, MEDICAID, SELFPAY ==
[2021-02-23 13:22] VITALS: BP 127/66; PULSE 101; RESP 18; TEMP 36.5; O2SAT 92; BMI 32.2
--- NOTE | 2021-02-23 13:34 | XR_ITS ---
PROCEDURE INFORMATION: Exam: XR Left Ribs with PA Chest Exam date and time: 02/23/2021 1:34 PM Age: 71 years old Clinical indication: Pain and injury or trauma; Fall; Rib area, left side; Sprain or strain; Chest wall pain; Additional info: Fell out of w/c; Lt sided rib pain TECHNIQUE: Imaging protocol: XR Left ribs with PA chest. Views: 3 views COMPARISON: CR XR CHEST 2V 02/23/2021 11:02 AM FINDINGS: Lungs: Atelectatic changes noted within both lung bases. Pleural spaces: There is no evidence of pneumothorax. There are no pleural effusions present. Heart/Mediastinum: Unremarkable. No cardiomegaly. Vasculature: The vasculature demonstrates diffuse mild atherosclerotic calcification. Bones/joints: Nondisplaced fractures of the lateral aspect of the left 7th and 8th ribs. IMPRESSION: 1. Nondisplaced fractures of the lateral aspect of the left 7th and 8th ribs. 2. There is no evidence of pneumothorax. 3. Atelectatic changes noted within both lung bases.
--- NOTE | 2021-02-23 13:36 | PC.NURSE ---
Notified Rad of orders
[2021-02-23 14:10] VITALS: BP 127/66; PULSE 109; RESP 18; O2SAT 80
[2021-02-23 14:17] VITALS: BP 136/117; PULSE 101; RESP 18; O2SAT 91
[2021-02-23 14:31] VITALS: BP 154/71; PULSE 101; RESP 18; O2SAT 91
[2021-02-23 15:00] VITALS: BP 153/68; PULSE 120; RESP 24; O2SAT 89
--- NOTE | 2021-02-23 15:09 | HMH.EDGENADL ---
ED Disposition Clinical Impression: Thoracic compression fracture Qualifiers: Encounter type: initial encounter Thoracic vertebra fracture level: T6 Qualified Code(s): S22.050A - Wedge compression fracture of T5-T6 vertebra, initial encounter for closed fracture Lumbar compression fracture Qualifiers: Encounter type: initial encounter Lumbar vertebra fracture level: L4 Qualified Code(s): S32.040A - Wedge compression fracture of fourth lumbar vertebra, initial encounter for closed fracture Left rib fracture Qualifiers: Encounter type: initial encounter Rib fracture type: multiple ribs Fracture type: closed Qualified Code(s): S22.42XA - Multiple fractures of ribs, left side, initial encounter for closed fracture Fall Qualifiers: Encounter type: initial encounter Qualified Code(s): W19.XXXA - Unspecified fall, initial encounter Disposition: Home, Self-Care Condition on Discharge: Fair Instructions: DI for Rib Fracture, DI for Vertebral Fracture, How to Prevent Falls Additional Instructions: Hydrocodone/acetaminophen as already prescribed as needed for pain. Follow-up with primary care provider next week. Additional instructions for CONTROLLED SUBSTANCES: You have been prescribed a medication that is a controlled substance. Controlled substances include pain medications known as opiates and sedative nerve medications known as benzodiazepines. Tramadol, fioricet, and gabapentin are also controlled substances. Some common opiates include: Codeine (such as Tylenol #3) Hydrocodone (Vicodin, Lortab, Lorcet, Baxley) Oxycodone (Percocet, Percodan, Oxycodone, Oxy IR) Some common benzodiazepines include: Diazepam (Valium) Lorazepam (Ativan) Alprazolam (Xanax) Clonazepam (Klonopin) Oxazepam (Serax) All of these controlled substances are highly addictive and frequently abused. Misuse can and frequently does lead to addiction as well as overdose and . Medication should be stored in a locked cabinet or other secure storage unit. Do not store the medication in a motor vehicle. Short term supplies, 3 days or less, are prescribed because of the highly addictive nature of the medication. Any of the controlled substance medication NOT taken should be disposed of properly and NOT SAVED. The recommended method of disposing of unused medications is: Place the medicines in a sealable plastic bag. If the medicine is a solid, crush it or add water to dissolve it. Add something undesirable (cat litter, coffee grounds, etc.) Dispose of sealed bag in household trash Do not flush or pour unused medicines down a sink or drain. Controlled substances should not be shared, given away or sold. Because of the addictive nature and frequent abuse, these medications are sometimes stolen. These medications should be kept in a safe place where they cannot be stolen. Do not keep them in your car or purse. Lost or stolen prescriptions for controlled substances WILL NOT BE REFILLED in this emergency department, regardless of whether a police report was filed. Referrals: Jarret Dennison MD [Primary Care Provider] - - Critical Care Critical Care Time: No Attestation: On 02/23/21, the high probability of a clinically significant, sudden or life threatening deterioration of the following system(s) required my full and direct attention, intervention and personal management. The time I documented below is in addition to time spent performing reported procedures but includes the following listed in this critical care notation. Medical Decision Making - José Miguel Inquiry Pt receiving controlled substance: No Vital Signs: 02/23/21 13:22 02/23/21 14:10 02/23/21 14:17 Temperature 97.7 F Temperature Source Oral Pulse Rate 109 H 101 H Pulse Rate [Right Radial] 101 H Respiratory Rate 18 18 18 Blood Pressure 127/66 136/117 H Blood Pressure [Right Arm] 127/66 Blood Pressure Mean 122 Blood Pressure Mean [Right Arm] 86 Bl
--- NOTE | 2021-02-23 15:21 | CT_ITS ---
PROCEDURE INFORMATION: Exam: CT Abdomen And Pelvis With Contrast Exam date and time: 02/23/2021 3:21 PM Age: 71 years old Clinical indication: Injury or trauma; Blunt; Luq; Patient HX: Fall abd pain; Additional info: Fall, abdo pain TECHNIQUE: Imaging protocol: Computed tomography of the abdomen and pelvis with contrast. Radiation optimization: All CT scans at this facility use at least one of these dose optimization techniques: automated exposure control; mA and/or kV adjustment per patient size (includes targeted exams where dose is matched to clinical indication); or iterative reconstruction. Contrast material: ISOVUE; Contrast volume: 75 ml; Contrast route: IV; COMPARISON: PELWO CT pelvis wo con 10/10/2017 3:25 PM FINDINGS: Lungs: Lung findings reported separately. Liver: There is a diffuse decrease in hepatic parenchymal density, consistent with mild fatty infiltration. Gallbladder and bile ducts: Normal. No calcified stones. No ductal dilation. Pancreas: Normal. No ductal dilation. Spleen: The spleen demonstrates punctate calcifications, consistent with remote granulomatous organism exposure. Adrenal glands: Normal. No mass. Kidneys and ureters: Normal. No hydronephrosis. Stomach and bowel: Unremarkable. No obstruction. No mucosal thickening. Appendix: No evidence of appendicitis. Intraperitoneal space: Normal. No significant fluid collection. Vasculature: The vasculature demonstrates diffuse mild atherosclerotic calcification. Lymph nodes: Unremarkable. No enlarged lymph nodes. Urinary bladder: Unremarkable as visualized. Reproductive: Unremarkable as visualized. Bones/joints: Compression fracture of L4 is present, age is indeterminate. The lumbar spine demonstrates mild degenerative changes at multiple levels. Soft tissues: There is a fat-containing umbilical hernia. IMPRESSION: 1. There is a diffuse decrease in hepatic parenchymal density, consistent with mild fatty infiltration. 2. Compression fracture of L4 is present, age is indeterminate.
--- NOTE | 2021-02-23 15:22 | CT_ITS ---
PROCEDURE INFORMATION: Exam: CT Lumbar Spine Without Contrast Exam date and time: 02/23/2021 3:22 PM Age: 71 years old Clinical indication: Injury or trauma; Fall; Blunt trauma (contusions or hematomas); Additional info: Fall, injury TECHNIQUE: Imaging protocol: Computed tomography images of the lumbar spine without contrast. Radiation optimization: All CT scans at this facility use at least one of these dose optimization techniques: automated exposure control; mA and/or kV adjustment per patient size (includes targeted exams where dose is matched to clinical indication); or iterative reconstruction. COMPARISON: CR LS5 LUMBAR SPINE 5 VIEWS 11/15/2016 3:00 PM FINDINGS: Vertebrae: 50% compression deformity of L4 is present, age is indeterminate. The facet joints demonstrate mild degenerative hypertrophy and sclerosis. Discs/Spinal canal/Neural foramina: The lumbar spine demonstrates mild degenerative changes at multiple levels. Vasculature: The vasculature demonstrates diffuse mild atherosclerotic calcification. Soft tissues: Unremarkable. IMPRESSION: 1. 50% compression deformity of L4 is present, age is indeterminate. No evidence of retropulsion. 2. The lumbar spine demonstrates mild degenerative changes at multiple levels.
--- NOTE | 2021-02-23 15:22 | CT_ITS ---
PROCEDURE INFORMATION: Exam: CT Thoracic Spine Without Contrast Exam date and time: 02/23/2021 3:22 PM Age: 71 years old Clinical indication: Injury or trauma; Fall; Blunt trauma (contusions or hematomas); Additional info: Fall, injury TECHNIQUE: Imaging protocol: Computed tomography images of the thoracic spine without contrast. Radiation optimization: All CT scans at this facility use at least one of these dose optimization techniques: automated exposure control; mA and/or kV adjustment per patient size (includes targeted exams where dose is matched to clinical indication); or iterative reconstruction. COMPARISON: CT THORACIC SPINE WO CON 03/05/2019 8:22 PM FINDINGS: Vertebrae: Compression deformity of T6 is present, age is indeterminate. No evidence of retropulsion. The facet joints demonstrate mild degenerative hypertrophy and sclerosis. Discs/Spinal canal/Neural foramina: The thoracic spine demonstrates mild degenerative changes at multiple levels. Other bones/joints: Nondisplaced fractures of the left 8th and 9th ribs present. Soft tissues: Unremarkable. Lungs: Calcified density with fibrotic changes noted within the right lung apex. Scattered granulomatous calcifications noted throughout both lungs. IMPRESSION: 1. Compression deformity of T6 is present, age is indeterminate. No evidence of retropulsion. 2. The thoracic spine demonstrates mild degenerative changes at multiple levels. 3. Nondisplaced fractures of the left 8th and 9th ribs present.
--- NOTE | 2021-02-23 15:22 | CT_ITS ---
PROCEDURE INFORMATION: Exam: CT Chest With Contrast; Diagnostic Exam date and time: 02/23/2021 3:22 PM Age: 71 years old Clinical indication: Injury or trauma; Fall; Blunt trauma (contusions or hematomas); Additional info: Fall, injury TECHNIQUE: Imaging protocol: Diagnostic computed tomography of the chest with contrast. Radiation optimization: All CT scans at this facility use at least one of these dose optimization techniques: automated exposure control; mA and/or kV adjustment per patient size (includes targeted exams where dose is matched to clinical indication); or iterative reconstruction. Contrast material: ISOVUE; Contrast volume: 75 ml; Contrast route: IV; COMPARISON: CT CHEST WO CON 02/17/2020 11:13 AM FINDINGS: Lungs: Centrilobular emphysematous changes noted bilaterally. The lungs are hyperinflated, consistent with underlying small airways disease. Calcified density with fibrotic changes noted within the right lung apex. Atelectatic changes noted within both lung bases. Pleural spaces: There is no evidence of pneumothorax. There are no pleural effusions present. Heart: Heart demonstrates mild diffuse enlargement. Aorta: Unremarkable. No aortic aneurysm. Lymph nodes: Bilateral hilar and mediastinal calcified lymph nodes. Bones/joints: Nondisplaced fractures of the lateral aspect of the left 8th and 9th ribs. 50% compression deformity of T6 present, age is indeterminate. The thoracic spine demonstrates mild degenerative changes at multiple levels. Soft tissues: Unremarkable. Other findings: Calcified granulomas noted bilaterally. IMPRESSION: 1. Mild cardiomegaly. 2. Nondisplaced fractures of the lateral aspect of the left 8th and 9th ribs. 3. Centrilobular emphysematous changes noted bilaterally. 4. The lungs are hyperinflated, consistent with underlying small airways disease. 5. There is no evidence of pneumothorax. 6. Atelectatic changes noted within both lung bases. 7. 50% compression deformity of T6 present, age is indeterminate.
[2021-02-23 15:51] LABS: Basophils % 0.3 % (0.1-2.0); Eosinophils # 0.1 K/mm3 (0.0-0.4); Eosinophils % 0.5 % (0.1-12.0); Hematocrit 35.2 % (37.0-47.0); Hemoglobin 10.8 g/dL (12.2-16.2); Lymphocytes # 1.3 K/mm3 (0.7-4.5); Lymphocytes % 10.4 % (10-50); Mean Corpuscular HGB Conc 30.7 g/dL (31.8-35.4); Mean Corpuscular Hemoglobin 27.5 pg (27.0-31.2); Mean Corpuscular Volume 89.4 fl (81-99); Mean Platelet Volume 8.1 fl (7.4-10.4); Monocytes # 0.6 K/mm3 (0.1-1.0); Neutrophils # 10.1 K/mm3 (1.8-7.8); Neutrophils % 83.8 % (37.0-80.0); Platelet Count 252 K/mm3 (142-424); Red Blood Count 3.93 M/mm3 (4.20-5.40); Red Cell Distribution Width 14.2 % (11.5-17.5)
[2021-02-23 15:52] LABS: Alanine Aminotransferase 20 U/L (12-78); Albumin Level 4.1 g/dl (3.5-5.0); Albumin/Globulin Ratio 1.2 (1.1-1.8); Alkaline Phosphatase 63 U/L (38-126); Aspartate Amino Transferase 25 U/L (14-36); Blood Urea Nitrogen 7 mg/dl (7-17); Calcium 9.7 mg/dl (8.4-10.2); Chloride 94 mmol/L (98-107); Creatinine Clearance Estimated 66 mL/min (50-200); Estimated Glomerular Filt Rate 99 ml/min (>60); GFR (African American) 120 ML/MIN (>60); Globulin 3.3 g/dL (1.3-3.2); Glucose 238 mg/dl (74-100); Potassium 3.7 mmoL/L (3.5-5.1); Sodium 137 mmol/L (136-145); Total Protein,Serum 7.4 g/dl (6.3-8.2)
--- NOTE | 2021-02-23 16:10 | PC.NURSE ---
GONE TO CT
[2021-02-23 16:20] LABS: Anion Gap 7.7 mEq/L (5-15); Carbon Dioxide 39 mmol/L (22.0-30.0)
--- NOTE | 2021-02-23 18:40 | PC.NURSE ---
Called report to Carolyn waldron Lukachukai
[2021-02-23 19:51] VITALS: BP 183/94; PULSE 107; RESP 18; TEMP 36.8; O2SAT 96
== END 2021-02-23 19:55 | disposition home or self-care (01) ==
PROVIDERS: Emergency Provider Emergency Medicine; PCP Emergency Medicine
DX: S22.050A Wedge compression fracture of T5-T6 vertebra, initial encounter for closed fracture (principal); S32.040A Wedge compression fracture of fourth lumbar vertebra, initial encounter for closed fracture; S22.42XA Multiple fractures of ribs, left side, initial encounter for closed fracture; W07.XXXA Fall from chair, initial encounter; Y92.89 Other specified places as the place of occurrence of the external cause; K21.9 Gastro-esophageal reflux disease without esophagitis; E78.5 Hyperlipidemia, unspecified; I10 Essential (primary) hypertension; F41.9 Anxiety disorder, unspecified; Z87.891 Personal history of nicotine dependence; Z79.899 Other long term (current) drug therapy
CPT/HCPCS: 71046; 71101; 71260; 72128; 72131; 74177; 80053; 85025; 99283; Q9967

== ENCOUNTER 2021-02-24 22:05 | Inpatient (IN) | payer MEDICARE, MEDICAID, SELFPAY ==
[2021-02-24] VITALS (7 sets, daily range): BP systolic 73–96; BP diastolic 35–46; PULSE 92–115; RESP 24–30; TEMP 37.2–38.4; O2SAT 84–96; BMI 32.5
--- NOTE | 2021-02-24 22:23 | XR_ITS ---
PROCEDURE INFORMATION: Exam: XR Chest Exam date and time: 02/24/2021 10:23 PM Age: 71 years old Clinical indication: Shortness of breath and other: Low 02 sats TECHNIQUE: Imaging protocol: XR of the chest. Views: 1 view. COMPARISON: CT CHEST W CON 02/23/2021 4:17 PM FINDINGS: Lungs: Bibasilar opacities compatible with subsegmental atelectasis/pleuroparenchymal scarring of the lung bases better appreciated on comparison chest CT. Pleural spaces: Unremarkable. No pleural effusion. No pneumothorax. Heart/Mediastinum: Unremarkable. No cardiomegaly. Bones/joints: Unremarkable. IMPRESSION: Bibasilar opacities compatible with subsegmental atelectasis/pleuroparenchymal scarring of the lung bases better appreciated on comparison chest CT.
--- NOTE | 2021-02-24 22:24 | ECG_ITS ---
APPROVED REPORT Exam: Resting ECG HR:109 bpm ECG Measurements Heart Rate 109 AXES MO 146 P 63 QRSd 82 QRS 33 QT 324 T 37 QTc 436 Conclusion Sinus tachycardia Low voltage QRS Borderline ECG Electronically signed by : Saturnino Farmer MD 02/25/2021 08:32:46
[2021-02-24 22:28] LABS: Coronavirus 19, PCR Not Detected (NotDetected); Influenza A, PCR Not Detected (NotDetected); Influenza B, PCR Not Detected (NotDetected); Microscopic, Urine URINE MICROSCOPIC (MICROSCOPIC)
[2021-02-24 22:35] LABS: Basophils % 0.1 % (0.1-2.0); Hemoglobin 10.5 g/dL (12.2-16.2); Lymphocytes # 1.3 K/mm3 (0.7-4.5); Lymphocytes % 7.9 % (10-50); Mean Corpuscular Hemoglobin 27.4 pg (27.0-31.2); Mean Corpuscular Volume 91.1 fl (81-99); Mean Platelet Volume 7.7 fl (7.4-10.4); Monocytes # 0.9 K/mm3 (0.1-1.0); Monocytes % 5.3 % (1.7-9.3); Neutrophils # 14.3 K/mm3 (1.8-7.8); Neutrophils % 86.6 % (37.0-80.0); Platelet Count 234 K/mm3 (142-424); Red Blood Count 3.84 M/mm3 (4.20-5.40); Red Cell Distribution Width 14.2 % (11.5-17.5); White Blood Count 16.6 K/mm3 (4.8-10.8)
[2021-02-24 22:39] LABS: Alanine Aminotransferase 19 U/L (12-78); Albumin Level 3.9 g/dl (3.5-5.0); Albumin/Globulin Ratio 1.1 (1.1-1.8); Alkaline Phosphatase 67 U/L (38-126); Aspartate Amino Transferase 25 U/L (14-36); Bilirubin,Total 0.9 mg/dl (0.2-1.3); Blood Urea Nitrogen 15 mg/dl (7-17); Calcium 9.3 mg/dl (8.4-10.2); Chloride 95 mmol/L (98-107); Creatinine Clearance Estimated 65 mL/min (50-200); Estimated Glomerular Filt Rate 49 ml/min (>60); GFR (African American) 59 ML/MIN (>60); Globulin 3.4 g/dL (1.3-3.2); Glucose 237 mg/dl (74-100); Sodium 138 mmol/L (136-145); Total Protein,Serum 7.3 g/dl (6.3-8.2)
[2021-02-24 22:43] LABS: MANUAL DIFFERENTIAL MANUAL DIFFERENTIAL (MANUAL DIFF)
[2021-02-24 22:44] LABS: C-Reactive Protein 196.9 mg/L (0-4)
[2021-02-24 22:45] LABS: Carbon Dioxide 37 mmol/L (22.0-30.0)
[2021-02-24 22:50] LABS: NT Pro Brain Natriuretic Pep. 816 pg/mL (0-125)
[2021-02-24 22:54] LABS: Hypochromasia 2+; Lymphocytes % 9 % (10-50); Monocytes % 2 % (2-9); Neutrophils % 80 % (42-76); Platelet Estimate Normal; Rouleaux 1+; Total Cells Counted 100
[2021-02-24 22:58] LABS: Procalcitonin 0.425 ng/mL (0.0-2.0)
[2021-02-24 22:59] LABS: Appearance,Urine CLOUDY (Clear); Bilirubin,Urine Negative (Negative); Blood, Urine 1+ (Negative); Color,Urine YELLOW (Yellow); Glucose,Urine (UA) Negative (Negative); Ketones,Urine Negative (Negative); Leukocyte Esterase,Urine 1+ (Negative); Nitrate,Urine POSITIVE (Negative); PH,Urine 5.5 (5.0-8.5); Protein,Urine 1+ (Negative); Specific Gravity, Urine >= 1.030 (1.005-1.030); Urobilinogen,Urine 0.2 EU/dl (0.2)
[2021-02-24 23:03] LABS: Lactic Acid 1.5 mmol/L (0.7-2.1); Troponin I < 0.01 ng/ml (0.00-0.034)
[2021-02-24 23:05] LABS: Bacteria,Urine 4+ /lpf; WBC,Urine 50-100 #/hpf (0-3)
[2021-02-24 23:07] LABS: Erythrocyte Sedimentation Rate 57 mm/hr (0-30)
--- NOTE | 2021-02-24 23:10 | HMH.EDSOB ---
ED Disposition Clinical Impression: Severe sepsis with acute organ dysfunction, Obesity (BMI 30.0-34.9), Tobacco use disorder, Bipolar 1 disorder, Pickwickian syndrome UTI (urinary tract infection) Qualifiers: Urinary tract infection type: site unspecified Hematuria presence: without hematuria Qualified Code(s): N39.0 - Urinary tract infection, site not specified Acute and chronic respiratory failure ([id number]) Qualifiers: Respiratory failure complication: unspecified whether with hypoxia or hypercapnia Qualified Code(s): J96.20 - Acute and chronic respiratory failure, unspecified whether with hypoxia or hypercapnia Diabetes mellitus Qualifiers: Diabetes mellitus type: type 2 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 insulin 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: unspecified longterm insulin use status Diabetes mellitus complication status: with other specified complication Qualified Code(s): E11.69 - Type 2 diabetes mellitus with other specified complication Left rib fracture Qualifiers: Encounter type: subsequent encounter Rib fracture type: multiple ribs Fracture type: closed Fracture healing: with routine healing Qualified Code(s): S22.42XD - Multiple fractures of ribs, left side, subsequent encounter for fracture with routine healing Anemia Qualifiers: Anemia type: unspecified type Qualified Code(s): D64.9 - Anemia, unspecified Disposition: Admitted As Inpatient Condition on Discharge: Serious Referrals: Provider,Referral, [Referring] - - Critical Care Critical Care Time: No Attestation: On 02/24/21, the high probability of a clinically significant, sudden or life threatening deterioration of the following system(s) required my full and direct attention, intervention and personal management. The time I documented below is in addition to time spent performing reported procedures but includes the following listed in this critical care notation. Medical Decision Making - Medical Records Medical records reviewed: Yes: I reviewed the patient's medical records. - José Miguel Inquiry Pt receiving controlled substance: No Vital Signs: 02/24/21 21:59 02/24/21 22:19 02/24/21 22:23 Temperature 101.1 F H Temperature Source Rectal Pulse Rate 112 H 113 H Pulse Rate [Right] 111 H Respiratory Rate 28 H 30 H 28 H Blood Pressure 80/46 L 73/44 L Blood Pressure [Right Arm] 80/46 L Blood Pressure Mean Blood Pressure Mean [Right Arm] 57 Blood Pressure Source Manual Cuff/ Auscultation Blood Pressure Source [Right Arm] Manual Cuff/ Auscultation Blood Pressure Position Supine 02 Sat by Pulse Oximetry 84 L 84 L 92 L Oxygen Delivery Method Nasal Cannula Nasal Cannula Nasal Cannula Oxygen Flow Rate (LPM) 3 3 5 02/24/21 22:30 02/24/21 23:00 02/24/21 23:24 Temperature 99.0 F Temperature Source Oral Pulse Rate 115 H 110 H 104 H Pulse Rate [Right] Respiratory Rate 28 H 30 H 28 H Blood Pressure 95/42 L 95/40 L 96/46 L Blood Pressure [Right Arm] Blood Pressure Mean Blood Pressure Mean [Right Arm] Blood Pressure Source Blood Pressure Source [Right Arm] Blood Pressure Position 02 Sat by Pulse Oximetry 94 L 94 L 93 L Oxygen Delivery Method Nasal Cannula Nasal Cannula Nasal Cannula Oxygen Flow Rate (LPM) 5 5 5 02/24/21 23:48 02/25/21 00:00 Temperature Temperature Source Pulse Rate 92 H 99 H Pulse Rate [Right] Respiratory Rate 24 26 H Blood Pressure 89/35 L 99/41 L Blood Pressure [Right Arm] Blood Pressure Mean 57 60 Blood Pressure Mean [Right Arm] Blood Pressure Source Blood Pressure Source [Right Arm] Blood Pressure Position 02 Sat by Pulse Oximetry 96 94 L Oxygen Delivery Method Oxygen Flow Rate (LPM) 3 3 - Lab Data Lab results reviewed: Yes: I reviewed the patient's lab results. Lab Results 02/24/21 22:09: POC Glucose 259 H 02/24/21 22:10: WBC 16.6 H D, RBC 3.84 L, Hgb 10.5 L, Hct 35.0 L, MCV 91.1, MCH 27.4, MCHC 30.0 L, RDW 14.2, Plt Count 234, MPV 7.7, Neut % (Auto) 86.6 H,
[2021-02-24 23:25] LABS: POC Glucose,Bedside 259 (70-110)
[2021-02-25] VITALS (10 sets, daily range): BP systolic 99–156; BP diastolic 41–84; PULSE 80–99; RESP 18–26; TEMP 36.6–37.2; O2SAT 88–95; BMI 30.9; BMI 30.7
--- NOTE | 2021-02-25 01:01 | PC.NURSE ---
patient up to floor via stretcher at this time
[2021-02-25 02:08] LABS: Troponin I < 0.01 ng/ml (0.00-0.034)
[2021-02-25 04:39] LABS: Basophils % 0.1 % (0.1-2.0); Eosinophils % 0.2 % (0.1-12.0); Hematocrit 33.8 % (37.0-47.0); Hemoglobin 9.9 g/dL (12.2-16.2); Lymphocytes % 8.3 % (10-50); Mean Corpuscular HGB Conc 29.4 g/dL (31.8-35.4); Mean Corpuscular Hemoglobin 27.3 pg (27.0-31.2); Mean Corpuscular Volume 92.8 fl (81-99); Mean Platelet Volume 7.4 fl (7.4-10.4); Monocytes # 0.4 K/mm3 (0.1-1.0); Monocytes % 3.2 % (1.7-9.3); Neutrophils % 88.2 % (37.0-80.0); Platelet Count 183 K/mm3 (142-424); Red Blood Count 3.64 M/mm3 (4.20-5.40); White Blood Count 12.5 K/mm3 (4.8-10.8)
--- NOTE | 2021-02-25 04:43 | PC.NURSE ---
A&OX3. PT UNSURE OF WHERE SHE IS UPON ARRIVAL TO FLOOR. TOLERATING 5LNC WELL. PT HAS AUDIBLE WHEEZING AND INTERMITTENT NON-PRODUCTIVE COUGH. PT HAS SLEPT SINCE ARRIVAL TO FLOOR. NO C/O THUS FAR. REDNESS TO BOTTOM, PT TURNED Q2H THIS SHIFT. HEEL PROTECTORS PLACED TO HEELS AND FLOATED. BED SAFETY APPLIED. F/C PRESENT DRAINING DARK YELLOW URINE. VSS SINCE ARRIVAL TO FLOOR, WILL CONTINUE TO MONITOR.
[2021-02-25 04:51] LABS: Anion Gap 5.4 mEq/L (5-15); Blood Urea Nitrogen 16 mg/dl (7-17); Calcium 8.3 mg/dl (8.4-10.2); Carbon Dioxide 37 mmol/L (22.0-30.0); Chloride 102 mmol/L (98-107); Creatinine Clearance Estimated 68 mL/min (50-200); Estimated Glomerular Filt Rate 62 ml/min (>60); GFR (African American) 75 ML/MIN (>60); Glucose 233 mg/dl (74-100); Magnesium 1.6 mg/dl (1.6-2.3); Potassium 4.4 mmoL/L (3.5-5.1); Sodium 140 mmol/L (136-145)
[2021-02-25 05:07] LABS: Troponin I < 0.01 ng/ml (0.00-0.034)
[2021-02-25 06:22] LABS: POC Glucose,Bedside 226 (70-110)
--- NOTE | 2021-02-25 09:48 | HMH.HP ---
*Admission Date: 02/24/21 *Chief complaint: altered mental status *History of present illness: this patient from [facility] presented to the ed with altered mental status and fever - pt unable to give specific hx - pt was found to have uti and sepsis and was admitted for ivf and abx [facility] History I have reviewed the patient's past medical history: Yes Medical History: Reports:: Anxiety, Congestive Heart Failure, Chronic Obstructive Pulmonary Disease (COPD), Coronary Artery Disease, Diabetes Mellitus Type 2, Gastroesophageal Reflux Disease(GERD), Home Oxygen, Hyperlipidemia, Hypertension, Lung Disease, Peripheral Vascular Disease Denies:: Cancer, Diabetes Mellitus Type 1, Internal Pacemaker, MRSA *Have you ever received a pneumonia vaccine?: Yes *Have you received a flu vaccine this season?: Yes Other Medical History: Reports: Anemia, Arthritis, Sinus Problems, Other Other Surgeries: Yes: No Previous Surgery, Cholecystectomy, Colonoscopy, , Hysterectomy-Total, Other. No: Pacemaker Amputation: No Fractures: No - *Social History Smoking Status: Former smoker Tobacco Type: cigarettes # Packs/Day (cigarettes): 1 #Yrs smoked (if former smoker): 50 Alcohol Intake: never Alcohol Intake Frequency:: 3 or more drinks per day Substance Use Type: denies use *Occupational Status:: disabled Housing: residential Household Members: other *Travel in the last 8 weeks: None - Psychiatric History Pschychiatric History:: Reports:: Anxiety, Bipolar Disorder Family Hx:: No significant family history Review of Systems - Review of Systems Review of systems:: unable to obtain, pertinent systems reviewed and negative unless documented below - *Neurologic Reports confusion, Reports weakness, Denies localized weakness, Denies seizure-like activity Meds Home Medications Medication Instructions Recorded Confirmed Type Quetiapine Fumarate [Seroquel 25mg 25 mg PO HS 07/01/18 02/25/21 History tablet] Metformin HCl [Metformin ER 500 mg PO BID 04/13/19 02/25/21 History Osmotic] Spironolactone [Spironolactone 25 mg PO 0800,1700 04/13/19 02/25/21 History 25mg Tablet] Cholecalciferol (Vitamin D3) 400 unit PO BID 04/20/19 02/25/21 History [Vitamin D3] Ondansetron [Zofran 4mg ODT] 4 mg PO Q8HP PRN 04/20/19 02/24/21 History Acetaminophen [Acetaminophen Extra 500 mg PO Q4HP PRN 11/20/19 02/24/21 History Strength] Omeprazole [Omeprazole 20mg 20 mg PO DAILY 11/20/19 02/25/21 History Capsule] Lidocaine [Aspercreme Lidocaine] 1 patch TP DAILYP PRN 11/21/19 02/24/21 History alendronate 70 mg tablet 70 mg PO WEEKLY 12/09/19 02/24/21 History albuterol sulfate 90 mcg/actuation 1 inh INHALATION QID PRN #8.5 g 05/26/20 02/24/21 Rx aerosol inhaler Buspirone HCl [Buspar 5mg tablet] 5 mg PO BID 08/15/20 02/25/21 History Maury/D3/Mag11/Zinc/Atomic Physics Professor/Moi/Bor 1 tab PO BID 08/15/20 02/25/21 History [Caltrate 600+D Plus Tablet] Fluticasone/Umeclidin/Vilanter 1 puff IH DAILY 08/15/20 02/25/21 History [Trelegy Ellipta 100-62.5-25] Loperamide HCl [Imodium 2 mg 2 mg PO Q4HP PRN 08/15/20 02/24/21 History capsule] Ipratropium/Albuterol Sulfate 3 ml IH Q6HP PRN 30 Days #120 08/18/20 02/25/21 Rx [Duoneb 3mL neb] ampul.neb hydrocodone 5 mg-acetaminophen 325 1 tab PO BID PRN #60 tab 09/13/20 02/24/21 Rx mg tablet Calcium Carbonate [Calcium Antacid] 400 mg PO QIDP PRN 09/19/20 02/25/21 History Ibuprofen 200 mg PO Q6HP PRN 09/19/20 02/24/21 History Lactulose [Constulose] 30 ml PO DAILYP PRN 09/19/20 02/25/21 History gabapentin 100 mg capsule 100 mg PO TID #90 cap 10/28/20 02/25/21 Rx lorazepam 0.5 mg tablet 0.25 mg PO BID #30 tab 10/28/20 02/25/21 Rx Furosemide [Furosemide 20mg Tab*] 20 mg PO DAILY 02/24/21 02/25/21 History Metoprolol Succinate [Metoprolol 25 mg PO DAILY 02/24/21 02/25/21 History Succinate 25mg Tablet*] guaiFENesin [Guaifenesin] 200 mg PO Q6HP PRN 02/25/21 02/25/21 History Allergies Allergy/AdvReac Type S
[2021-02-25 11:21] LABS: POC Glucose,Bedside 199 (70-110)
--- NOTE | 2021-02-25 12:23 | HMH.PHAVTE ---
[facility] Pharmacy VTE Monitoring - Patient Demographics Admission date: 02/24/21 Report Date: 02/25/21 Time: 12:23 Allergies/Adverse Reactions: Patient Allergies orange juice Allergy (Mild, Verified 02/23/21 10:27) Rash Height: 1.63 m Weight: 81.703 kg Patient Problems: Current Active Problems Severe sepsis with acute organ dysfunction (Acute) Left rib fracture (Acute) UTI (urinary tract infection) (Acute) Anemia (Acute) Pickwickian syndrome (Chronic) Acute and chronic respiratory failure (adxzz-op-pjaofqs) (Acute) Bipolar 1 disorder (Chronic) Diabetes mellitus (Chronic) Obesity (BMI 30.0-34.9) (Chronic) Tobacco use disorder (Chronic) - VTE Risk Labs: VTE Related Lab Results Hgb 9.9 g/dL (12.2-16.2) L 02/25/21 04:30 Hct 33.8 % (37.0-47.0) L 02/25/21 04:30 Plt Count 183 K/mm3 (142-424) 02/25/21 04:30 BUN 16 mg/dl (7-17) 02/25/21 04:30 Creatinine 0.90 mg/dl (0.52-1.04) 02/25/21 04:30 Estimated Creat Clear 68 mL/min (50-200) 02/25/21 04:30 - Prophylaxis VTE Prophylaxis Ordered?: Yes Types of VTE Prophylaxis: TEDS Knee High Location of Applied Device: Bilateral Lower Extremeties
--- NOTE | 2021-02-25 13:23 | HMH.PHAINT ---
MEDICATION RECONCILIATION COMPLETED ON PATIENT USING EXTERNAL FILL HISTORY FROM PHARMACY. -CURT KRISHNAN, KAELAD
--- NOTE | 2021-02-25 15:50 | PC.NURSE ---
PT IS RESTING IN BED. PT COMPLAINS OF MILD DISCOMFORT IN HER LT SIDE WHEN SHE TAKES A BEEP BREATH. EATING AND DRINKING FAIR. LUNG SOUNDS HAVE SCATTERED WHEEZES. ABDOMEN SOFT/LARGE WITH ACTIVE BOWEL SOUNDS. PT HAS BEEN TURNED AND REPOSITIONED FREQUENTLY IN THE BED. REDNESS NOTED TO BUTTOCKS. HEEL PROTECTORS NOTED. O2 SATURATION HAS MAINTAINED 90-93% ON 4 L NC. WILL CONTINUE TO MONITOR.
[2021-02-25 17:12] LABS: POC Glucose,Bedside 154 (70-110)
[2021-02-25 21:11] LABS: POC Glucose,Bedside 173 (70-110)
[2021-02-26] VITALS (9 sets, daily range): BP systolic 94–171; BP diastolic 74–88; PULSE 91–129; RESP 22–28; TEMP 36.4–37.1; O2SAT 87–93; BMI 31.4; BMI 32.4
[2021-02-26 05:39] LABS: POC Glucose,Bedside 130 (70-110)
--- NOTE | 2021-02-26 05:58 | PC.NURSE ---
Pt has not rested well this shift. Pt has c/o of discomfort on left side while coughing admin med per MAY. Productive cough t/o shift. Q2h turn and heel protectors in place. Pt is able to make needs known to staff. No concerns at this time.
[2021-02-26 08:00] LABS: Basophils % 0.1 % (0.1-2.0); Eosinophils % 0.2 % (0.1-12.0); Hematocrit 33.4 % (37.0-47.0); Lymphocytes # 1.5 K/mm3 (0.7-4.5); Lymphocytes % 10.7 % (10-50); Mean Corpuscular Hemoglobin 27.5 pg (27.0-31.2); Mean Corpuscular Volume 91.5 fl (81-99); Mean Platelet Volume 7.4 fl (7.4-10.4); Monocytes # 0.9 K/mm3 (0.1-1.0); Monocytes % 6.1 % (1.7-9.3); Neutrophils # 11.6 K/mm3 (1.8-7.8); Neutrophils % 82.9 % (37.0-80.0); Platelet Count 249 K/mm3 (142-424); Red Blood Count 3.65 M/mm3 (4.20-5.40); Red Cell Distribution Width 14.2 % (11.5-17.5)
[2021-02-26 08:07] LABS: Chloride 101 mmol/L (98-107); Sodium 141 mmol/L (136-145)
[2021-02-26 08:08] LABS: Potassium 3.6 mmoL/L (3.5-5.1)
[2021-02-26 08:10] LABS: Blood Urea Nitrogen 13 mg/dl (7-17); Creatinine Clearance Estimated 69 mL/min (50-200); Estimated Glomerular Filt Rate 83 ml/min (>60); GFR (African American) 100 ML/MIN (>60)
[2021-02-26 08:11] LABS: Anion Gap 8.6 mEq/L (5-15); Calcium 7.8 mg/dl (8.4-10.2); Carbon Dioxide 35 mmol/L (22.0-30.0); Glucose 157 mg/dl (74-100)
--- NOTE | 2021-02-26 10:03 | HMH.ACPN2 ---
Internal Medicine - PN: Subj *Date: 02/26/21 *Time: 10:05 Interval history: looks better this am - has e coli uti- Exam Vital signs and Labs for Last 24 Hours: Temp Pulse Resp BP Pulse Ox 98.2 F 109 H 24 160/74 H 87 L 02/26/21 08:00 02/26/21 08:00 02/26/21 08:00 02/26/21 08:00 02/26/21 08:00 Laboratory Results - last 24 hr 02/24/21 22:10: Urine Color Yellow, Urine Appearance Cloudy, Urine pH 5.5, Ur Specific [place] >= 1.030, Urine Protein 1+, Urine Glucose (UA) Negative, Urine Ketones Negative, Urine Blood 1+, Urine Nitrate Positive, Urine Bilirubin Negative, Urine Urobilinogen 0.2, Ur Leukocyte Esterase 1+ A, Urine RBC 5-10, Urine WBC 50-100, Urine Bacteria 4+ 02/25/21 11:11: POC Glucose 199 H 02/25/21 16:36: POC Glucose 154 H 02/25/21 20:23: POC Glucose 173 H 02/26/21 05:12: POC Glucose 130 H 02/26/21 07:30: WBC 14.0 H, RBC 3.65 L, Hgb 10.0 L, Hct 33.4 L, MCV 91.5, MCH 27.5, MCHC 30.0 L, RDW 14.2, Plt Count 249 D, MPV 7.4, Neut % (Auto) 82.9 H, Lymph % (Auto) 10.7, [place] % (Auto) 6.1, Eos % (Auto) 0.2, Baso % (Auto) 0.1, Neut # (Auto) 11.6 H, Lymph # (Auto) 1.5, [place] # (Auto) 0.9, Eos # (Auto) 0.0, Baso # (Auto) 0.0 02/26/21 07:30: Sodium 141, Potassium 3.6, Chloride 101, Carbon Dioxide 35 H, Anion Gap 8.6, BUN 13, Creatinine 0.70 D, Estimated Creat Clear 69, Estimated GFR 83, Est GFR ( Amer) 100 D, Glucose 157 H, Calcium 7.8 L I & O for Last 24 hours: Intake & Output 12/0902/24/21 02/25/21 02/26/21 11:59 11:59 11:59 11:59 Intake Total 1638 / 1638 Output Total 525 / 525 1950 / 1950 Balance -525 / -525 -312 / -312 Weight 180 lb 2 oz 184 lb 4 oz Microbiology Reports for the Last 24 Hours: Microbiology 02/24/21 22:10 Urine,Catheterized Urine Culture - Final Escherichia coli - Constitutional no acute distress, obese - *Routine HEENT Exam Head: Present: normocephalic Eye: Present: EOMI, PERRL ENT: Present: mucous membranes dry - *Routine Neck Exam Absent: JVD - *Routine Respiratory Exam Present: decreased breath sounds - *Routine Cardiovascular Exam Present: RRR, murmur - *Routine Abdominal Exam Present: soft - *Routine Extremities Exam Absent: calf tenderness - *Routine Skin Exam Present: intact - *Routine Neurological Exam Present: alert, CN II-XII intact - Routine Psychiatric Exam Present: cooperative Assessment and Plan (1) Severe sepsis with acute organ dysfunction Status: Acute Category: Medical Code(s): A41.9 - Sepsis, unspecified organism; R65.20 - Severe sepsis without septic shock (2) UTI (urinary tract infection) Status: Acute Qualifiers: Urinary tract infection type: site unspecified Hematuria presence: without hematuria Qualified Code(s): N39.0 - Urinary tract infection, site not specified Category: Medical Code(s): N39.0 - Urinary tract infection, site not specified (3) Anemia Status: Acute Qualifiers: Anemia type: unspecified type Qualified Code(s): D64.9 - Anemia, unspecified Category: Medical Code(s): D64.9 - Anemia, unspecified (4) Tobacco use Status: Chronic Category: Social Hx Code(s): Z72.0 - Tobacco use (5) Acute and chronic respiratory failure (stnyx-tn-xsqljfa) Status: Acute Qualifiers: Respiratory failure complication: unspecified whether with hypoxia or hypercapnia Qualified Code(s): J96.20 - Acute and chronic respiratory failure, unspecified whether with hypoxia or hypercapnia Category: Medical Code(s): J96.20 - Acute and chronic respiratory failure, unspecified whether with hypoxia or hypercapnia (6) Bipolar 1 disorder Status: Chronic Category: Medical Code(s): F31.9 - Bipolar disorder, unspecified (7) Diabetes mellitus Status: Chronic Qualifiers: Diabetes mellitus type: type 2 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
[2021-02-26 11:02] LABS: POC Glucose,Bedside 166 (70-110)
--- NOTE | 2021-02-26 17:16 | PC.NURSE ---
PT IS SITTING UP IN THE CHAIR. ALERT AND ORIENTED X4. AROUND 1200 PT WAS COMPLAINING OF SOA AND PAIN IN HER LEFT SIDE. ON ASSESSMENT O2 SATURATION 90% ON 4 L NC, RESPIRATIONS 30/MIN. HR 120-130. PAIN RATE 8/10. PT WAS MEDICATED WITH MORPHINE 2 MG. PT STARTED TO DESAT IN THE 70'S. O2 INCREASED TO 6 L, O2 SATURATION MAINTAINED 80-83%. 50% VENTI MASK APPLIED. VERY DIMINISHED BREATH SOUNDS WITH AUDIBLE WHEEZING. RT NOTIFIED FOR DUONEB. AFTER DUONEB PT CONTINUED TO BE SOA . NOTIFIED , ORDERS RECEIVED (DEXAMETHASONE IV 8MG X1, XOPENEX TREATMENT AND APPLY NON REBREATHER). PT DID HAVE LESS WHEEZING AFTER XOPENEX TREATMENT AND O2 SATURATION IMPROVED WITH NON REBREATHER. PT SWITCHED BACK TO 6 L NC PER HER REQUEST. HR 120-130 AND O2 SATURATION 89%. NOTIFIED AND HE STATED TO KEEP PT ON THE 50% VENTI FOR THE REST OF THE AFTERNOON TO IMPROVE SATURATION AND START BACK HER METOPROLOL 25 MG DAILY. AFTER A COUPLE OF HOURS PT STATED SHE WAS STARTING TO FEEL SOMEWHAT BETTER AND EVEN REQUESTED TO BE PUT BACK ON NC. AT THIS TIME O2 SATURATION IN 90-92% ON 5 L NC WHILE PT IS SITTING UP IN THE CHAIR. HR 105-108. RESPIRATIONS 22-24/MIN. LUNG SOUNDS DIMINISHED WITH SCATTERED WHEEZES. ABDOMEN SOFT/LARGE/NON TENDER WITH ACTIVE BOWEL SOUNDS. PT HAS NO COMPLAINTS AT THIS TIME. WILL CONTINUE TO MONITOR.
[2021-02-26 20:49] LABS: POC Glucose,Bedside 265 (70-110)
[2021-02-26 21:35] LABS: POC Glucose,Bedside 199 (70-110)
[2021-02-27] VITALS (10 sets, daily range): BP systolic 113–139; BP diastolic 55–81; PULSE 61–110; RESP 14–22; TEMP 36.7–37.2; O2SAT 90–96; BMI 31.9; BMI 31.6
[2021-02-27 05:53] LABS: POC Glucose,Bedside 151 (70-110)
--- NOTE | 2021-02-27 07:00 | XR_ITS ---
PROCEDURE: XR CHEST 2V CLINICAL HISTORY: sob COMPARISON: CT CT CHEST W CON from 02/23/2021 CR XR CHEST 2V from 02/23/2021 CR XR RIBS LT MIN 3V W CXR1V from 02/23/2021 CR XR CHEST PORTABLE from 02/24/2021 FINDINGS: The cardiomediastinal silhouette and pulmonary vascularity are within normal limits. The study is under penetrated. Increased markings are noted in the lower lobes right greater than left suggesting bilateral lower lobe infiltrates. There are small bilateral pleural effusions No acute bony abnormalities. IMPRESSION: Chronic changes with bibasilar infiltrates and small bilateral effusions. Dictated by: Jaylen Valentin MD 02/27/2021 09:19 Jaylen Valentin MD in [facility] 02/27/2021 09:19
--- NOTE | 2021-02-27 07:55 | HMH.ACPN2 ---
Internal Medicine - PN: Subj *Date: 02/27/21 *Time: 07:56 Interval history: Patient denies significant problems overnight. She appears somewhat sleepy this morning. Patient was admitted with UTI, urine cultures growing a pansensitive E. coli. She is currently covered with Rocephin. Patient has longstanding chronic pulmonary disease. On exam she is tight and wheezing. She is on 5 L per nasal cannula, saturating in the low 90s. We will check a blood gas on her and modify her regimen accordingly. Exam Vital signs and Labs for Last 24 Hours: Temp Pulse Resp BP Pulse Ox 98.7 F 92 H 14 135/69 93 L 02/27/21 04:00 02/27/21 06:15 02/27/21 04:00 02/27/21 04:00 02/27/21 06:15 Laboratory Results - last 24 hr 02/26/21 07:30: WBC 14.0 H, RBC 3.65 L, Hgb 10.0 L, Hct 33.4 L, MCV 91.5, MCH 27.5, MCHC 30.0 L, RDW 14.2, Plt Count 249 D, MPV 7.4, Neut % (Auto) 82.9 H, Lymph % (Auto) 10.7, Stephenson % (Auto) 6.1, Eos % (Auto) 0.2, Baso % (Auto) 0.1, Neut # (Auto) 11.6 H, Lymph # (Auto) 1.5, Stephenson # (Auto) 0.9, Eos # (Auto) 0.0, Baso # (Auto) 0.0 02/26/21 07:30: Sodium 141, Potassium 3.6, Chloride 101, Carbon Dioxide 35 H, Anion Gap 8.6, BUN 13, Creatinine 0.70 D, Estimated Creat Clear 69, Estimated GFR 83, Est GFR ( Amer) 100 D, Glucose 157 H, Calcium 7.8 L 02/26/21 10:56: POC Glucose 166 H 02/26/21 16:18: POC Glucose 199 H 02/26/21 20:30: POC Glucose 265 H 02/27/21 05:07: POC Glucose 151 H I & O for Last 24 hours: Intake & Output 02/24/21 02/25/21 02/26/21 02/27/21 23:59 23:59 23:59 23:59 Intake Total 1518 / 1518 480 / 480 Output Total 900 / 900 1575 / 2275 700 / 700 Balance 618 / 618 -1095 / -1795 -700 / -700 Weight 190 lb 180 lb 2 oz 182 lb 15.739 oz 180 lb 6.4 oz Microbiology Reports for the Last 24 Hours: Microbiology 02/25/21 01:10 Rectum CRE Surveillance Culture - Final 02/24/21 22:10 Blood Blood Culture - Preliminary NO GROWTH AFTER 48 HOURS 02/24/21 22:10 Blood Blood Culture - Preliminary NO GROWTH AFTER 48 HOURS 02/24/21 22:10 Urine,Catheterized Urine Culture - Final Escherichia coli - Constitutional no acute distress, obese - *Routine HEENT Exam Head: Present: normocephalic Eye: Present: EOMI, PERRL ENT: Present: mucous membranes moist - *Routine Neck Exam Present: supple. Absent: lymphadenopathy - *Routine Respiratory Exam Present: wheezes. Absent: accessory muscle use, crackles - *Routine Cardiovascular Exam Present: RRR - *Routine Abdominal Exam Present: soft, normoactive bowel sounds. Absent: tenderness - *Routine Extremities Exam Absent: cyanosis, clubbing, edema - *Routine Skin Exam Present: warm. Absent: rash - *Routine Neurological Exam Present: alert, oriented X3 Assessment and Plan (1) Severe sepsis with acute organ dysfunction Status: Acute Category: Medical Code(s): A41.9 - Sepsis, unspecified organism; R65.20 - Severe sepsis without septic shock (2) UTI (urinary tract infection) Status: Acute Qualifiers: Urinary tract infection type: site unspecified Hematuria presence: without hematuria Qualified Code(s): N39.0 - Urinary tract infection, site not specified Category: Medical Code(s): N39.0 - Urinary tract infection, site not specified (3) Anemia Status: Acute Qualifiers: Anemia type: unspecified type Qualified Code(s): D64.9 - Anemia, unspecified Category: Medical Code(s): D64.9 - Anemia, unspecified (4) Tobacco use Status: Chronic Category: Social Hx Code(s): Z72.0 - Tobacco use (5) Acute and chronic respiratory failure ([id number]) Status: Acute Qualifiers: Respiratory failure complication: unspecified whether with hypoxia or hypercapnia Qualified Code(s): J96.20 - Acute and chronic respiratory failure, unspecified whether with hypoxia or hypercapnia Category: Medical Code(s):
[2021-02-27 08:06] LABS: ABG Base Excess 10.4 mmol/L (-2.4-2.3); ABG Oxygen Saturation 95 % (90-100); ABG PH 7.28 mmol/L (7.35-7.45); ABG PO2 79.4 mmhg (80-100); ABG TCO2 39.5 mmhg (23-27); Allen's Test acceptable; Oxygen 5 %; Source Right Radial
[2021-02-27 08:14] LABS: ABG PCO2 80.1 mmhg (35.0-45.0)
--- NOTE | 2021-02-27 09:45 | SW/DCPLANNER ---
Addendum entered by Shanel Lancaster 03/03/21 08:50: The plan is for this patient to discharge back to [facility] today under ICF level of care. I have updated Carolyn baeza/ [facility]: no COVID swab needed prior to discharge. Addendum entered by Shanel Benitez 03/02/21 10:05: Updated patient information has been faxed to Carolyn with [facility]. Addendum entered by Shanel Lancaster 03/01/21 09:45: I have updated [facility] regarding this patient. Addendum entered by Shanel Lancaster 02/28/21 10:03: I have updated [facility] regarding this patient. Addendum entered by Shanel Lancaster 02/27/21 13:43: Geeta baeza/ Hospice evaluated this patient today and stated they can admit this patient once she returns to [facility]. I have updated Dr Dennison/Tracey. I will update Geeta baeza/ Hospice once discharge date is known for this patient. Original Note: This patient currently resides at [facility]. I spoke with Carolyn from [place] to confirm patient is ICF level of care. During rounds MD ordered bi-pap for this patient and she refused. After a lengthy discussion decision was made to proceed with Hospice referral: patient is agreeable. I will fax patient information to [facility] this AM.
[2021-02-27 11:39] LABS: POC Glucose,Bedside 140 (70-110)
--- NOTE | 2021-02-27 14:39 | PC.NURSE ---
RESPIRATORY CARE: SPUTUM COLLECTION ATTEMPTED WITH THIS PT. AT THIS TIME SHE IS NOT CAPABLE OF PRODUCING THIS SPECIMEN. WILL REASSESS.
[2021-02-27 17:20] LABS: POC Glucose,Bedside 141 (70-110)
[2021-02-27 21:11] LABS: POC Glucose,Bedside 234 (70-110)
[2021-02-27 21:21] LABS: POC Glucose,Bedside 129 (70-110)
[2021-02-28] VITALS (28 sets, daily range): BP systolic 80–163; BP diastolic 40–88; PULSE 45–129; RESP 19–38; TEMP 36.6–37.6; O2SAT 92–195; BMI 31.4
--- NOTE | 2021-02-28 04:33 | PC.NURSE ---
pt has rested well t/o shift, has been pleasant, remains on 5L NC with O2 sats 90-93%, no complaints of SOA or pain, urias draining at bedside
[2021-02-28 06:00] LABS: POC Glucose,Bedside 149 (70-110)
[2021-02-28 06:42] LABS: Basophils % 0.1 % (0.1-2.0); Eosinophils # 0.1 K/mm3 (0.0-0.4); Eosinophils % 0.8 % (0.1-12.0); Hematocrit 32.4 % (37.0-47.0); Hemoglobin 9.6 g/dL (12.2-16.2); Lymphocytes # 1.4 K/mm3 (0.7-4.5); Lymphocytes % 13.7 % (10-50); Mean Corpuscular HGB Conc 29.6 g/dL (31.8-35.4); Mean Corpuscular Hemoglobin 27.1 pg (27.0-31.2); Mean Corpuscular Volume 91.5 fl (81-99); Mean Platelet Volume 7.4 fl (7.4-10.4); Monocytes # 0.6 K/mm3 (0.1-1.0); Monocytes % 6.1 % (1.7-9.3); Neutrophils # 7.9 K/mm3 (1.8-7.8); Neutrophils % 79.2 % (37.0-80.0); Platelet Count 233 K/mm3 (142-424); Red Blood Count 3.54 M/mm3 (4.20-5.40); White Blood Count 9.9 K/mm3 (4.8-10.8)
[2021-02-28 06:53] LABS: Chloride 98 mmol/L (98-107)
[2021-02-28 06:54] LABS: Potassium 3.6 mmoL/L (3.5-5.1); Sodium 141 mmol/L (136-145)
[2021-02-28 06:56] LABS: Blood Urea Nitrogen 14 mg/dl (7-17); Creatinine Clearance Estimated 66 mL/min (50-200); Estimated Glomerular Filt Rate 122 ml/min (>60); GFR (African American) 148 ML/MIN (>60)
[2021-02-28 06:57] LABS: Glucose 155 mg/dl (74-100)
[2021-02-28 07:04] LABS: Anion Gap 8.6 mEq/L (5-15); Carbon Dioxide 38 mmol/L (22.0-30.0)
[2021-02-28 08:24] LABS: ABG Base Excess 8.1 mmol/L (-2.4-2.3); ABG HCO3 35.5 mmhg (22.0-26.0); ABG Oxygen Saturation 90 % (90-100); ABG PH 7.24 mmol/L (7.35-7.45); ABG TCO2 38.1 mmhg (23-27)
[2021-02-28 08:26] LABS: Allen's Test acceptable; Lactate Arterial 0.5 mmol/L (0.4-2.0); Oxygen 45 %; Source Right Radial
[2021-02-28 08:27] LABS: ABG PCO2 84.9 mmhg (35.0-45.0)
--- NOTE | 2021-02-28 09:57 | HMH.ACPN2 ---
Internal Medicine - PN: Subj *Date: 02/28/21 *Time: 22:40 Interval history: 71 YOF in bed on BiPAP not responding to verbal/tactile/painful stimuli, ABG revealing Resp Acidosis w/ Hypercapnea. We decided to intubate at this time, Anna paged Exam Vital signs and Labs for Last 24 Hours: Temp Pulse Resp BP Pulse Ox 98.3 F 120 H 32 H 163/76 H 94 L 02/28/21 08:00 02/28/21 08:00 02/28/21 08:00 02/28/21 08:00 02/28/21 08:00 Laboratory Results - last 24 hr 02/27/21 08:41: POC Glucose 129 H 02/27/21 11:24: POC Glucose 140 H 02/27/21 17:11: POC Glucose 141 H 02/27/21 20:32: POC Glucose 234 H 02/28/21 05:41: POC Glucose 149 H 02/28/21 05:44: WBC 9.9 D, RBC 3.54 L, Hgb 9.6 L, Hct 32.4 L, MCV 91.5, MCH 27.1, MCHC 29.6 L, RDW 14.0, Plt Count 233, MPV 7.4, Neut % (Auto) 79.2, Lymph % (Auto) 13.7, Fannin % (Auto) 6.1, Eos % (Auto) 0.8, Baso % (Auto) 0.1, Neut # (Auto) 7.9 H, Lymph # (Auto) 1.4, Fannin # (Auto) 0.6, Eos # (Auto) 0.1, Baso # (Auto) 0.0 02/28/21 05:44: Sodium 141, Potassium 3.6, Chloride 98, Carbon Dioxide 38 H, Anion Gap 8.6, BUN 14, Creatinine 0.50 L D, Estimated Creat Clear 66, Estimated GFR 122, Est GFR ( Amer) 148 D, Glucose 155 H, Calcium 8.0 L 02/28/21 08:18: Specimen Source Right radial, O2 % 45, ABG pH 7.24 L*, ABG pCO2 84.9 H, ABG pO2 64.0 L, ABG HCO3 35.5 H, ABG Total CO2 38.1 H, ABG O2 Saturation 90, ABG Base Excess 8.1 H, Jaylen Test acceptable, ABG Lactate 0.5, PEEP 14/7 bipap I & O for Last 24 hours: Intake & Output 02/25/21 02/26/21 02/27/21 02/28/21 23:59 23:59 23:59 23:59 Intake Total 1518 / 1518 480 / 480 1463 / 1463 199 / 199 Output Total 900 / 900 1575 / 2275 700 / 1100 400 / 400 Balance 618 / 618 -1095 / -1795 763 / 363 -201 / -201 Weight 180 lb 2 oz 182 lb 15.739 oz 178 lb 9.191 oz 177 lb Microbiology Reports for the Last 24 Hours: Microbiology 02/25/21 01:10 Rectum CRE Surveillance Culture - Final - Constitutional severe distress, chronically ill appearing - *Routine HEENT Exam Head: Present: normocephalic Eye: Present: EOMI ENT: Present: mucous membranes dry - *Routine Neck Exam Present: trachea midline. Absent: tracheal deviation - *Routine Respiratory Exam Present: decreased breath sounds, wheezes - *Routine Cardiovascular Exam Present: RRR - *Routine Abdominal Exam Present: soft, normoactive bowel sounds. Absent: firm - *Routine Extremities Exam Present: edema, pulses intact. Absent: cyanosis - *Routine Skin Exam Present: intact, dry. Absent: cyanosis, erythema - *Routine Neurological Exam Present: altered mental status - Routine Psychiatric Exam Present: unable to assess Assessment and Plan (1) Severe sepsis with acute organ dysfunction Status: Acute Category: Medical Code(s): A41.9 - Sepsis, unspecified organism; R65.20 - Severe sepsis without septic shock (2) UTI (urinary tract infection) Status: Acute Qualifiers: Urinary tract infection type: site unspecified Hematuria presence: without hematuria Qualified Code(s): N39.0 - Urinary tract infection, site not specified Category: Medical Code(s): N39.0 - Urinary tract infection, site not specified (3) Anemia Status: Acute Qualifiers: Anemia type: unspecified type Qualified Code(s): D64.9 - Anemia, unspecified Category: Medical Code(s): D64.9 - Anemia, unspecified (4) Tobacco use Status: Chronic Category: Social Hx Code(s): Z72.0 - Tobacco use (5) Acute and chronic respiratory failure ([id number]) Status: Acute Qualifiers: Respiratory failure complication: unspecified whether with hypoxia or hypercapnia Qualified Code(s): J96.20 - Acute and chronic respiratory failure, unspecified whether with hypoxia or hypercapnia Category: Medical Code(s): J96.20 - Acute and chronic respiratory failure, unspecified whether with hypoxia or hypercapnia (6) Bipolar 1 disorder Status: Chronic Category: Medical Code(s): F31
--- NOTE | 2021-02-28 10:09 | XR_ITS ---
PROCEDURE: XR CHEST PORTABLE CLINICAL HISTORY: intubation COMPARISON: CT CT CHEST W CON from 02/23/2021 CR XR RIBS LT MIN 3V W CXR1V from 02/23/2021 CR XR CHEST PORTABLE from 02/24/2021 CR XR CHEST 2V from 02/27/2021 FINDINGS: 10:15 a.m. Endotracheal tube has been inserted. The tip is in good position 2 cm above the camryn. Nasogastric tube is present. The tip is not visible on the image but below the GE junction. COPD changes. Consolidation is present in the right lower lobe consistent with pneumonia slightly worse. Trace bilateral effusions. Interstitial prominence noted throughout. Right upper lobe parenchymal opacity is slightly more prominent but could be related to the portable technique. IMPRESSION: Endotracheal tube and nasogastric tube are in good position. Diffuse interstitial prominence with slight worsening right lower lobe pneumonia and trace bilateral effusions. Slight increased prominence irregular right upper lobe opacity. May be due to an area of scarring or pneumonia Dictated by: Jaylen Valentin MD 02/28/2021 10:37 Jaylen Valentin MD in [facility] 02/28/2021 10:37
[2021-02-28 11:18] LABS: ABG Oxygen Saturation 99 % (90-100); ABG PH 7.45 mmol/L (7.35-7.45); ABG PO2 140.5 mmhg (80-100); ABG TCO2 36.6 mmhg (23-27)
[2021-02-28 11:22] LABS: Oxygen 65 %; Tidal Volume 440; Vent Rate 20
[2021-02-28 11:23] LABS: ABG PCO2 51.7 mmhg (35.0-45.0); Allen's Test Acceptable; PEEP 8; Source Left Radial
--- NOTE | 2021-02-28 11:24 | PC.NURSE ---
Addendum entered by Yee Levin RN 02/28/21 12:09: 0932: INTUBATION VERIFIED PER AUSCULTATION BILATERAL BREATH SOUNDS AND CO2 DETECTOR COLOR CHANGE. STAT CXR ORDERED TO CONFIRM. Original Note: 931: PATIENT INTUBATED PER SALAS OSORIO WITH 7.5 ETT, 22 AT THE GUM LINE. PATIENT GIVEN SUCCINYLOCHOLINE AND PROPOFOL IVP PER SALAS OSORIO. 0934: BP: 67/48 HR:112 IVF BOLUS INFUSING. MANUAL BP: LEFT ARM 80/56 MANUAL BP RIGHT ARM: 82/40 RECTAL TEMP: 98.7 PICTURE TAKEN OF BUTTOCK, REDNESS NOTED, NO OPEN AREAS, OPTIFORM DRESSING APPLIED, UROMETER PLACED ON CATHETER. MARIE HOSE IN PLACE, HEEL PROTECTOR'S PLACED. 1000: DR. WILLARD AT BEDSIDE TO ROUND. HE GAVE VENT SETTINGS FOLLOWS: FIO2: 65% TV: 440 RR:20 PEEP:8 ALSO GAVE ORDER FOR LEVOPHED GTT TO KEEP MAP>65 IF NEEDED, LR 500ML BOLUS. 1007:#16 NG PLACED IN LEFT NARE AT 55CM. VERIFIED WITH AUSCULTATION. RADIOLOGY AT BEDSIDE FOR STAT CXR. 1014: BP: 110/84 HR: 98 1037: CONFIRMED ETT PLACEMENT AND NG PLACEMENT. PATIENT TURNED TO RIGHT SIDE. 1044: BP: 88/47 HR: 84 1045: BP: 83/38 HR: 82 1045: STARTED LEVOPHED DRIP AT 5MCG/MIN 1100: BP: 104/55 HR: 71 1140: PATIENT RESTING COMFORTABLY AT THIS TIME. RASS -3, CPOT:0. THIS RN HAS REMAINED AT BEDSIDE SINCE 931 WHEN PATIENT WAS INTUBATED FOR CONTINUOUS MONITORING. PATIENT HAS DATASCOPE CYCLING Q5MIN AT BEDSIDE. PATIENT NSR ON TELEMETRY
--- NOTE | 2021-02-28 11:48 | PC.NURSE ---
PROPFOL GTT INFUSING AT 50MCG/KG/MIN LEVOPHED GTT INFUSING AT 5MCG/KG/MIN FENTANY GTT INFUSING AT 50MCG/KG MIN VITALS: BP:115/52 HR:67 SPO2: 100%. RT KIMMIE DECREASED FIO2 TO 50%. AT BEDSIDE GIVING BREATHING TREATMENT.
--- NOTE | 2021-02-28 12:05 | PC.NURSE ---
DECREASED PROPOFOL GTT TO 30MCG/KG/MIN
--- NOTE | 2021-02-28 12:24 | PC.WOUNDNOTE ---
redness noted; no open areas; optifoam applied
--- NOTE | 2021-02-28 12:29 | DIET.NUTRFU ---
Addendum entered by Lexy Montes RD, LD 02/28/21 12:44: propofol is providing 656kcal/day Original Note: Patient intubated this morning due to poor respiratory status. Consulted for TF recommendations:start Pulmocare at 20ml/hr and increase to 40ml/hr as tolerated to provide 920ml/1380kcal (plus propofol= 792kcal), 58gm protein and 722ml free water, flush with 55ml/hr ATC= 1278ml with total fluid of 2000ml/day providing 100% nutrition
[2021-02-28 12:32] LABS: POC Glucose,Bedside 198 (70-110)
--- NOTE | 2021-02-28 12:37 | PC.NURSE ---
PATIENT REPOSITIONED TO LEFT SIDE.
--- NOTE | 2021-02-28 12:55 | PC.NURSE ---
RESP CARE NOTE: FIO2 decreased to 45% per Dr Lopez t/o.
--- NOTE | 2021-02-28 13:14 | HMH.PULMCON ---
*Admission Date: 02/24/21 *Reason for consult:: Acute on chronic hypoxic and hypercarbic respiratory failure *History of present illness: Ms. Dunbar is a 60-year-old female is following in pulmonary clinic for COPD, chronic hypoxic hypercarbic respiratory failure, on triple inhaler therapy presented to the hospital this morning with worsening respiratory status range needing intubation and mechanical ventilatory support and pulmonary was called for further management. [facility] History Medical History: Reports:: Anxiety, Congestive Heart Failure, Chronic Obstructive Pulmonary Disease (COPD), Coronary Artery Disease, Diabetes Mellitus Type 2, Gastroesophageal Reflux Disease(GERD), Home Oxygen, Hyperlipidemia, Hypertension, Lung Disease, Peripheral Vascular Disease Denies:: Cancer, Diabetes Mellitus Type 1, Internal Pacemaker, MRSA *Have you ever received a pneumonia vaccine?: Yes *Have you received a flu vaccine this season?: Yes Other Medical History: Reports: Anemia, Arthritis, Sinus Problems, Other Other Surgeries: Yes: No Previous Surgery, Cholecystectomy, Colonoscopy, , Hysterectomy-Total, Other. No: Pacemaker Amputation: No Fractures: No - *Social History Smoking Status: Former smoker Tobacco Type: cigarettes # Packs/Day (cigarettes): 1 #Yrs smoked (if former smoker): 50 Alcohol Intake: never Alcohol Intake Frequency:: 3 or more drinks per day Substance Use Type: denies use *Occupational Status:: disabled Housing: jail Household Members: other *Travel in the last 8 weeks: None - Psychiatric History Pschychiatric History:: Reports:: Anxiety, Bipolar Disorder Family Hx:: No significant family history ROS - Review of Systems Review of systems:: unable to obtain Intubated and sedated Meds Home Medications Medication Instructions Recorded Confirmed Type Quetiapine Fumarate [Seroquel 25mg 25 mg PO HS 07/01/18 02/25/21 History tablet] Metformin HCl [Metformin ER 500 mg PO BID 04/13/19 02/25/21 History Osmotic] Spironolactone [Spironolactone 25 mg PO 0800,1700 04/13/19 02/25/21 History 25mg Tablet] Cholecalciferol (Vitamin D3) 400 unit PO BID 04/20/19 02/25/21 History [Vitamin D3] Ondansetron [Zofran 4mg ODT] 4 mg PO Q8HP PRN 04/20/19 02/24/21 History Acetaminophen [Acetaminophen Extra 500 mg PO Q4HP PRN 11/20/19 02/24/21 History Strength] Omeprazole [Omeprazole 20mg 20 mg PO DAILY 11/20/19 02/25/21 History Capsule] Lidocaine [Aspercreme Lidocaine] 1 patch TP DAILYP PRN 11/21/19 02/24/21 History alendronate 70 mg tablet 70 mg PO WEEKLY 12/09/19 02/24/21 History albuterol sulfate 90 mcg/actuation 1 inh INHALATION QID PRN #8.5 g 05/26/20 02/24/21 Rx aerosol inhaler Buspirone HCl [Buspar 5mg tablet] 5 mg PO BID 08/15/20 02/25/21 History Maury/D3/Mag11/Zinc/Customer Services Manager/Moi/Bor 1 tab PO BID 08/15/20 02/25/21 History [Caltrate 600+D Plus Tablet] Fluticasone/Umeclidin/Vilanter 1 puff IH DAILY 08/15/20 02/25/21 History [Trelegy Ellipta 100-62.5-25] Loperamide HCl [Imodium 2 mg 2 mg PO Q4HP PRN 08/15/20 02/24/21 History capsule] Ipratropium/Albuterol Sulfate 3 ml IH Q6HP PRN 30 Days #120 08/18/20 02/25/21 Rx [Duoneb 3mL neb] ampul.neb hydrocodone 5 mg-acetaminophen 325 1 tab PO BID PRN #60 tab 09/13/20 02/24/21 Rx mg tablet Calcium Carbonate [Calcium Antacid] 400 mg PO QIDP PRN 09/19/20 02/25/21 History Ibuprofen 200 mg PO Q6HP PRN 09/19/20 02/24/21 History Lactulose [Constulose] 30 ml PO DAILYP PRN 09/19/20 02/25/21 History gabapentin 100 mg capsule 100 mg PO TID #90 cap 10/28/20 02/25/21 Rx lorazepam 0.5 mg tablet 0.25 mg PO BID #30 tab 10/28/20 02/25/21 Rx Furosemide [Furosemide 20mg Tab*] 20 mg PO DAILY 02/24/21 02/25/21 History Metoprolol Succinate [Metoprolol 25 mg PO DAILY 02/24/21 02/25/21 History Succinate 25mg Tablet*] guaiFENesin [Guaifenesin] 200 mg PO Q6HP PRN 02/25/21 02/25/21 History Allergies Allergy/AdvReac Type Severity Reaction Status Ben
--- NOTE | 2021-02-28 13:16 | PC.NURSE ---
1300: DR. LANGE CALLED TO CHECK ON PATIENT. RT TIFFANY AT BEDSIDE DECREASING FIO2: TO 45% PER HIS ORDER. MD STATED HE DID NOT WANT PATIENT DEEPLY SEDATED. I INFORMED HIM SEDATION FOLLOWS: FENTANYL [id number]/HR, PROPOFOL 20MCG/KG/MIN. LEVOPHED ON 5MCG/MIN. PATIENT WILL AROUSE TO STIMULATION, SUCTIONING, TURNING.
--- NOTE | 2021-02-28 13:21 | PC.NURSE ---
Chayo GOETZ AT BESIDE TO SEE PATIENT.
--- NOTE | 2021-02-28 13:36 | PC.NURSE ---
SPOKE TO RENATA CLINTON, PERSON TO NOTIFY (SISTER), AND INFORMED HER OF CHANGE IN PATIENT STATUS AND REQUIREMENT FOR INTUBATION AND VENTILATION. INFORMED HER THAT PATIENT IS CURRENTLY STABLE. RENATA SET UP A PASSWORD OF [place] FOR PATIENT.
--- NOTE | 2021-02-28 13:47 | PC.NURSE ---
PATIENT COUCHING, REQUIRING ORAL SUCTIONING. THICK CLEAR SECREATIONS NOTED. MAKING MAKING ATTEMPT TO REACH FOR TUBE WHEN SUCTIONING. MITTENS IN PLACE.
[2021-02-28 14:10] LABS: Lipase 52 U/L (23-300)
[2021-02-28 14:11] LABS: Triglycerides 107 mg/dl (30-150)
--- NOTE | 2021-02-28 14:14 | PC.NURSE ---
Addendum entered by Yee Levin RN 02/28/21 14:18: NO NEW ORDERS AT THIS TIME. Original Note: DR. LANGE AT BEDSIDE ROUNDING.
[2021-02-28 14:15] LABS: C-Reactive Protein 54.8 mg/L (0-4)
[2021-02-28 14:19] LABS: NT Pro Brain Natriuretic Pep. 2100 pg/mL (0-125)
--- NOTE | 2021-02-28 14:29 | HMH.PTWOUND ---
Rehab Inpt Wound Evaluation Rehab IP Wound Evaluation Start: 02/28/21 14:25 Freq: ONCE Status: Active Protocol: Document 02/28/21 14:25 ELYSSA (Rec: 02/28/21 14:29 PWLE [id number]) Rehab PT Wound Assessment Patient Status Premedicated Prior to Dressing Change No Subjective Subjective Pt placed on artificial ventilation - pt has no open wounds at this time but due to immobility is at higher risk for wound formation. Pt has reddened area on buttocks that is blanchable at this time Wound Buttock Wound Type Pressure Ulcer Primary Dressing Absorbant Pad Comment optifoam pad Plan/Recommendation Comment T this time pt has no open wound and no wound care requirements - pt is highly succeptible to wounds due to immobility - nsg to continue w / pressure relief,shear protection, and moisture control Q2H per policy to assist in wound prevention. Wound care team will be available for continued consultation on patient. Eval Complexity Eval Charge Codes 34966 - Moderate Complexity G-codes PT Current Status Mobility PT Current Status Modifier CN-At least 100% impaired, limited or restricted PT Goal Status Mobility PT Goal Status Modifer CN-At least 100% impaired, limited or restricted PHYSICIAN CERTIFICATION: I certify the specified therapy services for Charla Holland are required, authorized, and reviewed every 30 days.
--- NOTE | 2021-02-28 17:13 | PC.NURSE ---
1500: PATIENT TRANSFERRED FOR ROOM 219. REPORT GIVEN TO Donal PELAYO RN.
[2021-02-28 20:28] LABS: POC Glucose,Bedside 221 (70-110)
[2021-02-28 21:27] LABS: POC Glucose,Bedside 257 (70-110)
[2021-03-01] VITALS (27 sets, daily range): BP systolic 113–186; BP diastolic 37–94; PULSE 42–119; RESP 20–26; TEMP 36.7–37.2; O2SAT 93–100; BMI 31.7
--- NOTE | 2021-03-01 06:00 | XR_ITS ---
PROCEDURE INFORMATION: Exam: XR Chest Exam date and time: 03/01/2021 6:00 AM Age: 71 years old Clinical indication: Device placement; Ett placement (vent status); Additional info: Intubated TECHNIQUE: Imaging protocol: XR of the chest. Views: 1 view. COMPARISON: CR XR CHEST PORTABLE 02/28/2021 10:15 AM FINDINGS: Tubes, catheters and devices: Endotracheal tube and nasogastric tube in appropriate position. Lungs: Severe diffuse emphysematous changes. No dense consolidation. Pleural spaces: Unremarkable. No pleural effusion. No pneumothorax. Heart/Mediastinum: Unremarkable. No cardiomegaly. Bones/joints: Unremarkable. There is no acute fracture present. IMPRESSION: 1. Severe diffuse emphysematous changes. 2. Endotracheal tube and nasogastric tube in appropriate position.
[2021-03-01 06:01] LABS: POC Glucose,Bedside 214 (70-110)
[2021-03-01 06:26] LABS: Basophils % 0.1 % (0.1-2.0); Hematocrit 30.4 % (37.0-47.0); Hemoglobin 9.4 g/dL (12.2-16.2); Lymphocytes # 0.5 K/mm3 (0.7-4.5); Lymphocytes % 8.7 % (10-50); Mean Corpuscular HGB Conc 30.8 g/dL (31.8-35.4); Mean Corpuscular Hemoglobin 27.6 pg (27.0-31.2); Mean Corpuscular Volume 89.8 fl (81-99); Mean Platelet Volume 8.2 fl (7.4-10.4); Monocytes # 0.2 K/mm3 (0.1-1.0); Monocytes % 3.3 % (1.7-9.3); Neutrophils # 5.1 K/mm3 (1.8-7.8); Neutrophils % 87.8 % (37.0-80.0); Platelet Count 250 K/mm3 (142-424); Red Blood Count 3.39 M/mm3 (4.20-5.40); Red Cell Distribution Width 14.5 % (11.5-17.5); White Blood Count 5.8 K/mm3 (4.8-10.8)
[2021-03-01 06:30] LABS: MANUAL DIFFERENTIAL MANUAL DIFFERENTIAL (MANUAL DIFF)
[2021-03-01 06:39] LABS: Chloride 101 mmol/L (98-107); Sodium 141 mmol/L (136-145)
[2021-03-01 06:43] LABS: Blood Urea Nitrogen 20 mg/dl (7-17); Calcium 8.1 mg/dl (8.4-10.2); Carbon Dioxide 33 mmol/L (22.0-30.0); Creatinine Clearance Estimated 67 mL/min (50-200); Estimated Glomerular Filt Rate 99 ml/min (>60); GFR (African American) 120 ML/MIN (>60); Glucose 211 mg/dl (74-100)
--- NOTE | 2021-03-01 07:00 | PC.NURSE ---
No acute acute changes t/o night. Pt remains on vent. Settings unchanged. She did fight the vent at times this shift. Has been bradycardic. Other VSS. Pt has had copious amount of secretions. No other concerns. Report given to oncoming nurse.
[2021-03-01 07:33] LABS: ABG Base Excess 6.1 mmol/L (-2.4-2.3); ABG HCO3 28.2 mmhg (22.0-26.0); ABG Oxygen Saturation 96 % (90-100); ABG PCO2 31.9 mmhg (35.0-45.0); ABG PO2 66.9 mmhg (80-100); ABG TCO2 29.2 mmhg (23-27)
[2021-03-01 07:53] LABS: Oxygen 45 %; PEEP 8; Tidal Volume 440; Vent Rate 20
[2021-03-01 07:54] LABS: ABG PH 7.57 mmol/L (7.35-7.45)
[2021-03-01 08:00] LABS: Lactate Arterial 0.9 mmol/L (0.4-2.0)
[2021-03-01 08:06] LABS: Hypochromasia 1+; Lymphocytes % 9 % (10-50); Monocytes % 6 % (2-9); Neutrophils % 85 % (42-76); Platelet Estimate Normal; RBC Morphology Normal; Total Cells Counted 100
--- NOTE | 2021-03-01 09:47 | HMH.ACPN2 ---
Internal Medicine - PN: Subj *Date: 03/01/21 *Time: 08:20 Interval history: intubated vent settings pressure support 10,fio2 45,tv 440,rate20,peep8 Exam Vital signs and Labs for Last 24 Hours: Temp Pulse Resp BP Pulse Ox 98.1 F 44 L 20 177/56 H 99 03/01/21 04:00 03/01/21 06:05 03/01/21 06:00 03/01/21 06:00 03/01/21 06:00 Laboratory Results - last 24 hr 02/28/21 05:44: C-Reactive Protein 54.8 H, NT-Pro-B Natriuret Pep 2100 H 02/28/21 05:44: Triglycerides 107, Lipase 52 02/28/21 10:30: Specimen Source Left radial, O2 % 65, ABG pH 7.45, ABG pCO2 51.7 H, ABG pO2 140.5 H, ABG HCO3 35.0 H, ABG Total CO2 36.6 H, ABG O2 Saturation 99, ABG Base Excess 11.0 H, Jaylen Test Acceptable, Vent Rate 20, Tidal Volume 440, PEEP 8 02/28/21 12:24: POC Glucose 198 H 02/28/21 17:30: POC Glucose 221 H 02/28/21 21:19: POC Glucose 257 H 03/01/21 05:15: POC Glucose 214 H 03/01/21 05:42: WBC 5.8 D, RBC 3.39 L, Hgb 9.4 L, Hct 30.4 L, MCV 89.8, MCH 27.6, MCHC 30.8 L, RDW 14.5, Plt Count 250, MPV 8.2, Neut % (Auto) 87.8 H, Lymph % (Auto) 8.7 L, [place] % (Auto) 3.3, Eos % (Auto) 0.0 L, Baso % (Auto) 0.1, Neut # (Auto) 5.1, Lymph # (Auto) 0.5 L, [place] # (Auto) 0.2, Eos # (Auto) 0.0, Baso # (Auto) 0.0, Total Counted 100, Neutrophils % (Manual) 85 H, Lymphocytes % (Manual) 9 L, Monocytes % (Manual) 6, Platelet Estimate Normal, RBC Morphology Normal, Hypochromasia 1+ 03/01/21 05:42: Sodium 141, Potassium 3.0 L, Chloride 101, Carbon Dioxide 33 H, Anion Gap 10.0, BUN 20 H D, Creatinine 0.60, Estimated Creat Clear 67, Estimated GFR 99, Est GFR ( Amer) 120, Glucose 211 H D, Calcium 8.1 L 03/01/21 06:00: Specimen Source r radial, O2 % 45, ABG pH 7.57 H*, ABG pCO2 31.9 L, ABG pO2 66.9 L, ABG HCO3 28.2 H, ABG Total CO2 29.2 H, ABG O2 Saturation 96, ABG Base Excess 6.1 H, Vent Rate 20, Tidal Volume 440, PEEP 8 03/01/21 07:57: ABG Lactate 0.9 I & O for Last 24 hours: Intake & Output 02/26/21 02/27/21 02/28/21 03/01/21 11:59 11:59 11:59 11:59 Intake Total 1638 / 1638 930 / 930 1625 / 1655 696.5 / 696.5 Output Total 1950 / 1950 700 / 700 1005 / 1010 230 / 230 Balance -312 / -312 230 / 230 620 / 645 466.5 / 466.5 Weight 182 lb 15.739 oz 180 lb 6.4 oz 177 lb 179 lb Microbiology Reports for the Last 24 Hours: Microbiology 02/28/21 08:00 Sputum - Expectorated Sputum Gram Stain - Final 02/28/21 09:45 Sputum - Endotracheal Tube Aspirate Gram Stain - Final - Constitutional no acute distress - *Routine HEENT Exam Head: Present: normocephalic Eye: Present: PERRL ENT: Present: mucous membranes moist - *Routine Neck Exam Present: supple. Absent: lymphadenopathy - *Routine Respiratory Exam Present: patient mechanically ventilated - *Routine Cardiovascular Exam Present: RRR - *Routine Abdominal Exam Present: soft, normoactive bowel sounds. Absent: tenderness - *Routine Extremities Exam Absent: cyanosis, clubbing, edema - *Routine Skin Exam Present: warm. Absent: rash - *Routine Neurological Exam sedated Assessment and Plan (1) Severe sepsis with acute organ dysfunction Status: Acute Category: Medical Code(s): A41.9 - Sepsis, unspecified organism; R65.20 - Severe sepsis without septic shock (2) UTI (urinary tract infection) Status: Acute Qualifiers: Urinary tract infection type: site unspecified Hematuria presence: without hematuria Qualified Code(s): N39.0 - Urinary tract infection, site not specified Category: Medical Code(s): N39.0 - Urinary tract infection, site not specified (3) Anemia Status: Acute Qualifiers: Anemia type: unspecified type Qualified Code(s): D64.9 - Anemia, unspecified Category: Medical Code(s): D64.9 - Anemia, unspecified (4) Tobacco use Status: Chronic Category: Social Hx Code(s): Z72.0 - Tobacco use (5) Acute and chronic respiratory failure ([id number]) Status: Acute Qualifiers: Respiratory failure complication: unspecifi
[2021-03-01 11:49] LABS: POC Glucose,Bedside 208 (70-110)
--- NOTE | 2021-03-01 12:01 | HMH.PULMPN ---
Internal Medicine - PN: Subj *Date: 03/01/21 *Time: 12:02 Interval history: No acute respiratory events in the last 24 hours. Patient respiratory status continued to improve. Exam - Constitutional Constitutional:: Present: no acute distress, comfortable - HENMT Exam HENMT: Present: normocephalic - Eye Exam Eyes:: Present: normal appearance both eyes and related structures - Neck Exam Neck:: Present: normal visual inspection - Respiratory Exam Respiratory:: Present: no respiratory distress, wheezing - Cardiovascular Exam Cardiac:: Present: S1, S2 - GI Exam GI:: Present: soft - Skin Exam Skin: Present: warm - Neurological Exam Neurological: Absent: alert, awake, normal cognition - Extremities Exam Extremities: Present: no cyanosis, no clubbing, no edema Assessment and Plan (1) Severe sepsis with acute organ dysfunction Status: Acute Category: Medical Code(s): A41.9 - Sepsis, unspecified organism; R65.20 - Severe sepsis without septic shock (2) UTI (urinary tract infection) Status: Acute Qualifiers: Urinary tract infection type: site unspecified Hematuria presence: without hematuria Qualified Code(s): N39.0 - Urinary tract infection, site not specified Category: Medical Code(s): N39.0 - Urinary tract infection, site not specified (3) Anemia Status: Acute Qualifiers: Anemia type: unspecified type Qualified Code(s): D64.9 - Anemia, unspecified Category: Medical Code(s): D64.9 - Anemia, unspecified (4) Tobacco use Status: Chronic Category: Social Hx Code(s): Z72.0 - Tobacco use (5) Acute and chronic respiratory failure ([id number]) Status: Acute Qualifiers: Respiratory failure complication: unspecified whether with hypoxia or hypercapnia Qualified Code(s): J96.20 - Acute and chronic respiratory failure, unspecified whether with hypoxia or hypercapnia Category: Medical Code(s): J96.20 - Acute and chronic respiratory failure, unspecified whether with hypoxia or hypercapnia (6) Bipolar 1 disorder Status: Chronic Category: Medical Code(s): F31.9 - Bipolar disorder, unspecified (7) Diabetes mellitus Status: Chronic Qualifiers: Diabetes mellitus type: type 2 Diabetes mellitus prison insulin use: unspecified intermediate manager insulin use status Diabetes mellitus complication status: with other specified complication Qualified Code(s): E11.69 - Type 2 diabetes mellitus with other specified complication Category: Medical Code(s): E11.9 - Type 2 diabetes mellitus without complications (8) Hyperlipidemia associated with type 2 diabetes mellitus Status: Chronic Category: Medical Code(s): E11.69 - Type 2 diabetes mellitus with other specified complication; E78.5 - Hyperlipidemia, unspecified (9) Obesity (BMI 30.0-34.9) Status: Chronic Category: Medical Code(s): E66.9 - Obesity, unspecified (10) E. coli UTI (urinary tract infection) Status: Acute Category: Medical Code(s): N39.0 - Urinary tract infection, site not specified; B96.20 - Unspecified Escherichia coli [E. coli] as the cause of diseases classified elsewhere (11) Left rib fracture Status: Acute Qualifiers: Encounter type: subsequent encounter Rib fracture type: multiple ribs Fracture type: closed Fracture healing: with routine healing Qualified Code(s): S22.42XD - Multiple fractures of ribs, left side, subsequent encounter for fracture with routine healing Category: Medical Code(s): S22.32XA - Fracture of one rib, left side, initial encounter for closed fracture (12) Bilateral pneumonia Status: Acute Qualifiers: Pneumonia type: due to unspecified organism Lung location: unspecified part of lung Qualified Code(s): J18.9 - Pneumonia, unspecified organism Category: Medical Code(s): J18.9 - Pneumonia, unspecified organism (13) Acute on chronic respiratory failure with hypoxia and hypercapnia Status: Acute
--- NOTE | 2021-03-01 12:03 | PC.NURSE ---
1030-Patient extubated to bipap at this time, tolerated well, current O2 saturations 97%
[2021-03-01 16:32] LABS: POC Glucose,Bedside 173 (70-110)
[2021-03-01 22:06] LABS: POC Glucose,Bedside 223 (70-110)
[2021-03-02] VITALS (11 sets, daily range): BP systolic 121–180; BP diastolic 65–88; PULSE 66–80; RESP 17–26; TEMP 36.9–37.1; O2SAT 90–96; BMI 31.1
[2021-03-02 05:53] LABS: POC Glucose,Bedside 208 (70-110)
--- NOTE | 2021-03-02 06:00 | XR_ITS ---
PROCEDURE INFORMATION: Exam: XR Chest Exam date and time: 03/02/2021 6:00 AM Age: 71 years old Clinical indication: Shortness of breath; Patient HX: Recently intubated, currently on bipap TECHNIQUE: Imaging protocol: XR of the chest. Views: 1 view. COMPARISON: CR XR CHEST PORTABLE 03/01/2021 5:09 AM FINDINGS: Lungs: Background emphysema. No definite superimposed focal airspace opacity. Pleural spaces: No substantial pleural effusion. No pneumothorax. Heart/Mediastinum: Unremarkable. No cardiomegaly. Bones/joints: Unremarkable. IMPRESSION: Background of emphysema with no definite superimposed focal airspace disease.
--- NOTE | 2021-03-02 06:03 | PC.NURSE ---
pt has been awake most of shift, has complained about bipap but has left it on this shift, O2 sats 93-95%, no complaints of SOA, complained of pain one time and was treated per MAR, urias draining at bedside with clear yellow urine noted
[2021-03-02 06:59] LABS: Basophils % 0.1 % (0.1-2.0); Hematocrit 32.1 % (37.0-47.0); Lymphocytes # 0.6 K/mm3 (0.7-4.5); Lymphocytes % 5.9 % (10-50); Mean Corpuscular Hemoglobin 27.3 pg (27.0-31.2); Mean Corpuscular Volume 87.9 fl (81-99); Mean Platelet Volume 8.1 fl (7.4-10.4); Monocytes # 0.3 K/mm3 (0.1-1.0); Monocytes % 3.2 % (1.7-9.3); Neutrophils # 9.4 K/mm3 (1.8-7.8); Neutrophils % 90.9 % (37.0-80.0); Platelet Count 329 K/mm3 (142-424); Red Blood Count 3.65 M/mm3 (4.20-5.40); Red Cell Distribution Width 15.2 % (11.5-17.5); White Blood Count 10.3 K/mm3 (4.8-10.8)
[2021-03-02 07:05] LABS: Chloride 98 mmol/L (98-107)
[2021-03-02 07:06] LABS: Potassium 3.4 mmoL/L (3.5-5.1); Sodium 144 mmol/L (136-145)
[2021-03-02 07:09] LABS: Anion Gap 11.4 mEq/L (5-15); Blood Urea Nitrogen 29 mg/dl (7-17); Calcium 8.4 mg/dl (8.4-10.2); Carbon Dioxide 38 mmol/L (22.0-30.0); Creatinine Clearance Estimated 66 mL/min (50-200); Estimated Glomerular Filt Rate 83 ml/min (>60); GFR (African American) 100 ML/MIN (>60); Glucose 211 mg/dl (74-100)
[2021-03-02 07:14] LABS: MANUAL DIFFERENTIAL MANUAL DIFFERENTIAL (MANUAL DIFF)
[2021-03-02 08:26] LABS: Lymphocytes % 5 % (10-50); Monocytes % 2 % (2-9); Neutrophils % 93 % (42-76); Total Cells Counted 100
[2021-03-02 08:27] LABS: Hypochromasia 2+; Platelet Estimate Normal
--- NOTE | 2021-03-02 08:29 | PC.NURSE ---
60mL of propofol, 80mL fentanyl wasted from bedside drip left from previous shift. Wasted with witness of Carmen Hernandez RN
--- NOTE | 2021-03-02 09:25 | DIET.NUTRFU ---
Pt extubated yesterday and is on bipap at this time. Recommend advancing diet to allow pt PO intake. Glucose 211. Will continue to monitor.
--- NOTE | 2021-03-02 09:38 | HMH.ACPN2 ---
Internal Medicine - PN: Subj *Date: 03/02/21 *Time: 08:45 Interval history: pt laying in bed asking for bipap to be removed. bipap removed placed on o2 at 3 liters nc Exam Vital signs and Labs for Last 24 Hours: Temp Pulse Resp BP Pulse Ox 98.7 F 66 20 160/68 H 91 L 03/02/21 08:00 03/02/21 08:00 03/02/21 08:00 03/02/21 08:00 03/02/21 08:00 Laboratory Results - last 24 hr 03/01/21 11:37: POC Glucose 208 H 03/01/21 16:24: POC Glucose 173 H 03/01/21 21:39: POC Glucose 223 H 03/02/21 05:38: WBC 10.3 D, RBC 3.65 L, Hgb 10.0 L, Hct 32.1 L, MCV 87.9, MCH 27.3, MCHC 31.0 L, RDW 15.2, Plt Count 329 D, MPV 8.1, Neut % (Auto) 90.9 H, Lymph % (Auto) 5.9 L, [place] % (Auto) 3.2, Eos % (Auto) 0.0 L, Baso % (Auto) 0.1, Neut # (Auto) 9.4 H, Lymph # (Auto) 0.6 L, [place] # (Auto) 0.3, Eos # (Auto) 0.0, Baso # (Auto) 0.0, Total Counted 100, Neutrophils % (Manual) 93 H, Lymphocytes % (Manual) 5 L, Monocytes % (Manual) 2, Platelet Estimate Normal, Hypochromasia 2+ 03/02/21 05:38: Sodium 144, Potassium 3.4 L, Chloride 98, Carbon Dioxide 38 H, Anion Gap 11.4, BUN 29 H D, Creatinine 0.70, Estimated Creat Clear 66, Estimated GFR 83, Est GFR ( Amer) 100, Glucose 211 H, Calcium 8.4 03/02/21 05:44: POC Glucose 208 H I & O for Last 24 hours: Intake & Output 02/27/21 02/28/21 03/01/21 03/02/21 11:59 11:59 11:59 11:59 Intake Total 930 / 930 1625 / 1655 696.5 / 696.5 200 / 200 Output Total 700 / 700 1005 / 1010 230 / 230 400 / 400 Balance 230 / 230 620 / 645 466.5 / 466.5 -200 / -200 Weight 180 lb 6.4 oz 177 lb 179 lb 176 lb Microbiology Reports for the Last 24 Hours: Microbiology 02/28/21 08:00 Sputum - Expectorated Sputum Gram Stain - Final 02/28/21 08:00 Sputum - Expectorated Sputum Sputum Culture - Preliminary 02/24/21 22:10 Blood Blood Culture - Final NO GROWTH AFTER 5 DAYS 02/24/21 22:10 Blood Blood Culture - Final NO GROWTH AFTER 5 DAYS 02/28/21 09:45 Sputum - Endotracheal Tube Aspirate Gram Stain - Final - Constitutional no acute distress, chronically ill appearing - *Routine HEENT Exam Head: Present: normocephalic Eye: Present: PERRL ENT: Present: mucous membranes moist - *Routine Neck Exam Present: supple. Absent: lymphadenopathy - *Routine Respiratory Exam Present: CTA bilaterally - *Routine Cardiovascular Exam Present: RRR - *Routine Abdominal Exam Present: soft, normoactive bowel sounds. Absent: tenderness - *Routine Extremities Exam Absent: cyanosis, clubbing, edema - *Routine Skin Exam Present: warm. Absent: rash - *Routine Neurological Exam Present: alert, oriented X3 Assessment and Plan (1) Severe sepsis with acute organ dysfunction Status: Acute Category: Medical Code(s): A41.9 - Sepsis, unspecified organism; R65.20 - Severe sepsis without septic shock (2) UTI (urinary tract infection) Status: Acute Qualifiers: Urinary tract infection type: site unspecified Hematuria presence: without hematuria Qualified Code(s): N39.0 - Urinary tract infection, site not specified Category: Medical Code(s): N39.0 - Urinary tract infection, site not specified (3) Anemia Status: Acute Qualifiers: Anemia type: unspecified type Qualified Code(s): D64.9 - Anemia, unspecified Category: Medical Code(s): D64.9 - Anemia, unspecified (4) Tobacco use Status: Chronic Category: Social Hx Code(s): Z72.0 - Tobacco use (5) Acute and chronic respiratory failure ([id number]) Status: Acute Qualifiers: Respiratory failure complication: unspecified whether with hypoxia or hypercapnia Qualified Code(s): J96.20 - Acute and chronic respiratory failure, unspecified whether with hypoxia or hypercapnia Category: Medical Code(s): J96.20 - Acute and chronic respiratory failure, unspecified whether with hypoxia or hypercapnia (6) Bipolar 1 disorder Status: Chronic Ca
[2021-03-02 11:13] LABS: ABG Base Excess 7.9 mmol/L (-2.4-2.3); ABG HCO3 31.2 mmhg (22.0-26.0); ABG Oxygen Saturation 92 % (90-100); ABG PCO2 41.4 mmhg (35.0-45.0); ABG TCO2 32.5 mmhg (23-27)
[2021-03-02 11:15] LABS: Allen's Test Acceptable; Source Left Radial
--- NOTE | 2021-03-02 11:34 | HMH.PULMPN ---
Internal Medicine - PN: Subj *Date: 03/02/21 *Time: 11:34 Interval history: No acute respirations overnight. Patient admits significant improvement in her symptoms. Exam - Constitutional Constitutional:: Present: no acute distress, comfortable - HENMT Exam HENMT: Present: normocephalic, atraumatic - Eye Exam Eyes:: Present: normal appearance both eyes and related structures - Neck Exam Neck:: Present: normal visual inspection - Respiratory Exam Respiratory:: Present: able to speak in complete sentences, no respiratory distress, wheezing - Cardiovascular Exam Cardiac:: Present: S1, S2 - GI Exam GI:: Present: soft, no hepatosplenomegaly - Skin Exam Skin: Present: warm - Neurological Exam Neurological: Present: alert, awake, normal cognition - Extremities Exam Extremities: Present: no cyanosis, no clubbing, no edema Assessment and Plan (1) Severe sepsis with acute organ dysfunction Status: Acute Category: Medical Code(s): A41.9 - Sepsis, unspecified organism; R65.20 - Severe sepsis without septic shock (2) UTI (urinary tract infection) Status: Acute Qualifiers: Urinary tract infection type: site unspecified Hematuria presence: without hematuria Qualified Code(s): N39.0 - Urinary tract infection, site not specified Category: Medical Code(s): N39.0 - Urinary tract infection, site not specified (3) Anemia Status: Acute Qualifiers: Anemia type: unspecified type Qualified Code(s): D64.9 - Anemia, unspecified Category: Medical Code(s): D64.9 - Anemia, unspecified (4) Tobacco use Status: Chronic Category: Social Hx Code(s): Z72.0 - Tobacco use (5) Acute and chronic respiratory failure ([id number]) Status: Acute Qualifiers: Respiratory failure complication: unspecified whether with hypoxia or hypercapnia Qualified Code(s): J96.20 - Acute and chronic respiratory failure, unspecified whether with hypoxia or hypercapnia Category: Medical Code(s): J96.20 - Acute and chronic respiratory failure, unspecified whether with hypoxia or hypercapnia (6) Bipolar 1 disorder Status: Chronic Category: Medical Code(s): F31.9 - Bipolar disorder, unspecified (7) Diabetes mellitus Status: Chronic Qualifiers: Diabetes mellitus type: type 2 Diabetes mellitus prison insulin use: unspecified 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 coli UTI (urinary tract infection) Status: Acute Category: Medical Code(s): N39.0 - Urinary tract infection, site not specified; B96.20 - Unspecified Escherichia coli [E. coli] as the cause of diseases classified elsewhere (11) Left rib fracture Status: Acute Qualifiers: Encounter type: subsequent encounter Rib fracture type: multiple ribs Fracture type: closed Fracture healing: with routine healing Qualified Code(s): S22.42XD - Multiple fractures of ribs, left side, subsequent encounter for fracture with routine healing Category: Medical Code(s): S22.32XA - Fracture of one rib, left side, initial encounter for closed fracture (12) Bilateral pneumonia Status: Acute Qualifiers: Pneumonia type: due to unspecified organism Lung location: unspecified part of lung Qualified Code(s): J18.9 - Pneumonia, unspecified organism Category: Medical Code(s): J18.9 - Pneumonia, unspecified organism (13) Acute on chronic re
[2021-03-02 12:27] LABS: POC Glucose,Bedside 173 (70-110)
[2021-03-02 16:50] LABS: POC Glucose,Bedside 114 (70-110)
[2021-03-02 20:29] LABS: POC Glucose,Bedside 162 (70-110)
--- NOTE | 2021-03-02 21:38 | PC.NURSE ---
patient is adamant about not wearing bipap. explained to patient why she needed to wear and she still insisted that she would not. would go back on the ventilator before wearing bipap again.
[2021-03-03] VITALS: BP 156/65; PULSE 68; RESP 19; TEMP 36.6; O2SAT 94
[2021-03-03 04:00] VITALS: BP 164/89; PULSE 89; RESP 18; TEMP 36.6; O2SAT 90
--- NOTE | 2021-03-03 04:58 | PC.NURSE ---
Respiratory notified this RN that pt was refusing to be put on BiPAP and stated she would be leaving if they tried to make her. Pt has remained on 6L NC and has had no c/o SOA this shift. VSS, urias cath draining clear yellow urine at bedside, will continue to monitor.
[2021-03-03 05:00] VITALS: BMI 30.9
--- NOTE | 2021-03-03 06:00 | XR_ITS ---
PROCEDURE INFORMATION: Exam: XR Chest Exam date and time: 03/03/2021 6:00 AM Age: 71 years old Clinical indication: Screening exam; Other screening; Additional info: F/u , recently extubated TECHNIQUE: Imaging protocol: XR of the chest. Views: 1 view. COMPARISON: CR XR CHEST PORTABLE 03/02/2021 4:55 AM FINDINGS: Lungs: Background of emphysema. No definite superimposed focal airspace disease. Pleural spaces: Unremarkable. No pleural effusion. No pneumothorax. Heart/Mediastinum: Unremarkable. No cardiomegaly. Bones/joints: Unremarkable. IMPRESSION: Background of emphysema with no definite superimposed acute cardiopulmonary abnormality.
[2021-03-03 06:37] LABS: POC Glucose,Bedside 139 (70-110)
[2021-03-03 06:45] VITALS: PULSE 74; O2SAT 98
[2021-03-03 07:00] LABS: Basophils % 0.2 % (0.1-2.0); Eosinophils # 0.1 K/mm3 (0.0-0.4); Eosinophils % 0.7 % (0.1-12.0); Hematocrit 32.3 % (37.0-47.0); Lymphocytes # 2.2 K/mm3 (0.7-4.5); Lymphocytes % 25.5 % (10-50); Mean Corpuscular Hemoglobin 27.6 pg (27.0-31.2); Mean Corpuscular Volume 88.9 fl (81-99); Mean Platelet Volume 8.1 fl (7.4-10.4); Monocytes # 0.6 K/mm3 (0.1-1.0); Monocytes % 7.5 % (1.7-9.3); Neutrophils # 5.6 K/mm3 (1.8-7.8); Neutrophils % 66.1 % (37.0-80.0); Platelet Count 325 K/mm3 (142-424); Red Blood Count 3.64 M/mm3 (4.20-5.40); Red Cell Distribution Width 15.2 % (11.5-17.5); White Blood Count 8.5 K/mm3 (4.8-10.8)
[2021-03-03 07:07] LABS: Chloride 99 mmol/L (98-107); Sodium 144 mmol/L (136-145)
[2021-03-03 07:10] LABS: Blood Urea Nitrogen 23 mg/dl (7-17); Calcium 8.1 mg/dl (8.4-10.2); Creatinine Clearance Estimated 66 mL/min (50-200); Estimated Glomerular Filt Rate 83 ml/min (>60); GFR (African American) 100 ML/MIN (>60); Glucose 153 mg/dl (74-100)
[2021-03-03 07:17] LABS: Anion Gap 10.8 mEq/L (5-15); Carbon Dioxide 37 mmol/L (22.0-30.0)
[2021-03-03 07:21] LABS: Potassium 2.8 mmoL/L (3.5-5.1)
[2021-03-03 08:00] VITALS: BP 142/85; PULSE 75; RESP 16; TEMP 36.3; O2SAT 86; O2SAT 91
--- NOTE | 2021-03-03 09:52 | HMH.DCSUM ---
General - General Admission date:: 02/25/21 Discharge date: 03/03/21 HPI HPI: this patient from [facility] presented to the ed with altered mental status and fever - pt unable to give specific hx - pt was found to have uti and sepsis and was admitted for ivf and abx Hospital Course Hospital Course: Laboratory Tests 02/24/21 02/24/21 02/24/21 22:09 22:10 22:10 WBC 16.6 H D RBC 3.84 L Hgb 10.5 L Hct 35.0 L MCV 91.1 MCH 27.4 MCHC 30.0 L RDW 14.2 Plt Count 234 MPV 7.7 Neut % (Auto) 86.6 H Lymph % (Auto) 7.9 L [place] % (Auto) 5.3 Eos % (Auto) 0.0 L Baso % (Auto) 0.1 Neut # (Auto) 14.3 H Lymph # (Auto) 1.3 [place] # (Auto) 0.9 Eos # (Auto) 0.0 Baso # (Auto) 0.0 Total Counted 100 Neutrophils % (Manual) 80 H Band Neutrophils % 9.0 H Lymphocytes % (Manual) 9 L Monocytes % (Manual) 2 Platelet Estimate Normal RBC Morphology Hypochromasia 2+ Rouleaux 1+ ESR 57 H Specimen Source O2 % ABG pH ABG pCO2 ABG pO2 ABG HCO3 ABG Total CO2 ABG O2 Saturation ABG Base Excess Jaylen Test ABG Lactate Vent Rate Tidal Volume PEEP Sodium 138 Potassium 4.0 Chloride 95 L Carbon Dioxide 37 H Anion Gap 10.0 BUN 15 D Creatinine 1.10 H D Estimated Creat Clear 65 Estimated GFR 49 L Est GFR ( Amer) 59 D Glucose 237 H POC Glucose 259 H Lactate Calcium 9.3 Magnesium Total Bilirubin 0.9 AST 25 ALT 19 Alkaline Phosphatase 67 Troponin I < 0.01 C-Reactive Protein 196.9 H NT-Pro-B Natriuret Pep Total Protein 7.3 Albumin 3.9 Globulin 3.4 H Albumin/Globulin Ratio 1.1 Triglycerides Lipase Procalcitonin 0.425 Urine Color Urine Appearance Urine pH Ur Specific [place] Urine Protein Urine Glucose (UA) Urine Ketones Urine Blood Urine Nitrate Urine Bilirubin Urine Urobilinogen Ur Leukocyte Esterase Urine RBC Urine WBC Urine Bacteria SARS-CoV-2 (PCR) Influenza A Untype (PCR) Influenza Type B (PCR) 1202/24/21 02/24/21 22:10 22:10 22:10 WBC RBC Hgb Hct MCV MCH MCHC RDW Plt Count MPV Neut % (Auto) Lymph % (Auto) [place] % (Auto) Eos % (Auto) Baso % (Auto) Neut # (Auto) Lymph # (Auto) [place] # (Auto) Eos # (Auto) Baso # (Auto) Total Counted Neutrophils % (Manual) Band Neutrophils % Lymphocytes % (Manual) Monocytes % (Manual) Platelet Estimate RBC Morphology Hypochromasia Rouleaux ESR Specimen Source O2 % ABG pH ABG pCO2 ABG pO2 ABG HCO3 ABG Total CO2 ABG O2 Saturation ABG Base Excess Jaylen Test ABG Lactate Vent Rate Tidal Volume PEEP Sodium Potassium Chloride Carbon Dioxide Anion Gap BUN Creatinine Estimated Creat Clear Estimated GFR Est GFR ( Amer) Glucose POC Glucose Lactate 1.5 Calcium Magnesium Total Bilirubin AST ALT Alkaline Phosphatase Troponin I C-Reactive Protein NT-Pro-B Natriuret Pep Total Protein Albumin Globulin Albumin/Globulin Ratio Triglycerides Lipase Procalcitonin Urine Color Yellow Urine Appearance Cloudy Urine pH 5.5 Ur Specific [place] >= 1.030 Urine Protein 1+ Urine Glucose (UA) Negative Urine Ketones Negative Urine Blood 1+ Urine Nitrate Positive Urine Bilirubin Negative Urine Urobilinogen 0.2 Ur Leukocyte Esterase 1+ A Urine RBC 5-10 Urine WBC 50-100 Urine Bacteria 4+ SARS-CoV-2 (PCR) Not detected Influenza A Untype (PCR) Not detected Influenza Type B (PCR) Not detected 02/24/21 02/25/21 02/25/21 22:10 01:37 04:30 WBC RBC Hgb Hct MCV MCH MCHC RDW Plt Co
[2021-03-03 10:04] VITALS: O2SAT 90
--- NOTE | 2021-03-03 10:33 | PC.NURSE ---
LATE ENTRY. LAB NOTIFIED THIS RN OF CRITICAL POTASSIUM. NAME AND ROOM NUMBER VERIFIED. MD CARNES MADE AWARE DURING ROUNDS THIS AM
[2021-03-03 12:00] VITALS: BP 160/72; PULSE 94; RESP 20; TEMP 37; O2SAT 80
--- NOTE | 2021-03-03 12:10 | PC.NURSE ---
checked pt o2 sat at 1210 91% on 6lnc pt in no apparent distress
--- NOTE | 2021-03-03 13:48 | HMH.PULMPN ---
Internal Medicine - PN: Subj *Date: 03/03/21 *Time: 13:48 Interval history: No acute respiratory vents overnight. Patient admits continued improvement in her symptoms. Exam - Constitutional Constitutional:: Present: no acute distress, comfortable - HENMT Exam HENMT: Present: normocephalic, atraumatic - Eye Exam Eyes:: Present: normal appearance both eyes and related structures - Neck Exam Neck:: Present: normal visual inspection - Respiratory Exam Respiratory:: Present: able to speak in complete sentences, no respiratory distress, normal respiratory effort, wheezing. Absent: accessory muscle use - Cardiovascular Exam Cardiac:: Present: S1, S2 - GI Exam GI:: Present: soft, no hepatosplenomegaly - Skin Exam Skin: Present: warm, no rash - Neurological Exam Neurological: Present: alert, awake, normal cognition - Extremities Exam Extremities: Present: no cyanosis, no clubbing - Psychiatric Exam Psychiatric: Present: normal affect Assessment and Plan (1) Severe sepsis with acute organ dysfunction Status: Acute Category: Medical Code(s): A41.9 - Sepsis, unspecified organism; R65.20 - Severe sepsis without septic shock (2) UTI (urinary tract infection) Status: Acute Qualifiers: Urinary tract infection type: site unspecified Hematuria presence: without hematuria Qualified Code(s): N39.0 - Urinary tract infection, site not specified Category: Medical Code(s): N39.0 - Urinary tract infection, site not specified (3) Anemia Status: Acute Qualifiers: Anemia type: unspecified type Qualified Code(s): D64.9 - Anemia, unspecified Category: Medical Code(s): D64.9 - Anemia, unspecified (4) Tobacco use Status: Chronic Category: Social Hx Code(s): Z72.0 - Tobacco use (5) Acute and chronic respiratory failure ([id number]) Status: Acute Qualifiers: Respiratory failure complication: unspecified whether with hypoxia or hypercapnia Qualified Code(s): J96.20 - Acute and chronic respiratory failure, unspecified whether with hypoxia or hypercapnia Category: Medical Code(s): J96.20 - Acute and chronic respiratory failure, unspecified whether with hypoxia or hypercapnia (6) Bipolar 1 disorder Status: Chronic Category: Medical Code(s): F31.9 - Bipolar disorder, unspecified (7) Diabetes mellitus Status: Chronic Qualifiers: Diabetes mellitus type: type 2 Diabetes mellitus skilled nursing insulin use: unspecified terminal gauger insulin use status Diabetes mellitus complication status: with other specified complication Qualified Code(s): E11.69 - Type 2 diabetes mellitus with other specified complication Category: Medical Code(s): E11.9 - Type 2 diabetes mellitus without complications (8) Hyperlipidemia associated with type 2 diabetes mellitus Status: Chronic Category: Medical Code(s): E11.69 - Type 2 diabetes mellitus with other specified complication; E78.5 - Hyperlipidemia, unspecified (9) Obesity (BMI 30.0-34.9) Status: Chronic Category: Medical Code(s): E66.9 - Obesity, unspecified (10) E. coli UTI (urinary tract infection) Status: Acute Category: Medical Code(s): N39.0 - Urinary tract infection, site not specified; B96.20 - Unspecified Escherichia coli [E. coli] as the cause of diseases classified elsewhere (11) Left rib fracture Status: Acute Qualifiers: Encounter type: subsequent encounter Rib fracture type: multiple ribs Fracture type: closed Fracture healing: with routine healing Qualified Code(s): S22.42XD - Multiple fractures of ribs, left side, subsequent encounter for fracture with routine healing Category: Medical Code(s): S22.32XA - Fracture of one rib, left side, initial encounter for closed fracture (12) Bilateral pneumonia Status: Acute Qualifiers: Pneumonia type: due to unspecified organism Lung location: unspecified part of lung Qualified Code(s): J18.9 - Pneumonia, unspe
[2021-03-04 17:21] LABS: POC Glucose,Bedside 224 (70-110)
== END 2021-03-03 16:19 | DRG 871 ==
LOC: ER 23:54 → 2ND 02-25 00:36
PROVIDERS: Family Medicine; Internal Medicine Pulmonary Disease; Nurse Practitioner Family; Admitting Provider Emergency Medicine; Emergency Provider Emergency Medicine; PCP Emergency Medicine; Visit Provider Emergency Medicine
DX: A41.9 Sepsis, unspecified organism (principal); J96.22 Acute and chronic respiratory failure with hypercapnia; J96.21 Acute and chronic respiratory failure with hypoxia; J18.9 Pneumonia, unspecified organism; N39.0 Urinary tract infection, site not specified; J44.0 Chronic obstructive pulmonary disease with (acute) lower respiratory infection; R65.20 Severe sepsis without septic shock; I11.0 Hypertensive heart disease with heart failure; I50.9 Heart failure, unspecified; Z99.81 Dependence on supplemental oxygen; F31.9 Bipolar disorder, unspecified; D64.9 Anemia, unspecified; F41.9 Anxiety disorder, unspecified; E11.51 Type 2 diabetes mellitus with diabetic peripheral angiopathy without gangrene; Z87.891 Personal history of nicotine dependence; E78.5 Hyperlipidemia, unspecified; M19.90 Unspecified osteoarthritis, unspecified site; B96.20 Unspecified Escherichia coli [E. coli] as the cause of diseases classified elsewhere; E11.69 Type 2 diabetes mellitus with other specified complication; E66.9 Obesity, unspecified; Z68.31 Body mass index [BMI] 31.0-31.9, adult; Z20.822 Contact with and (suspected) exposure to COVID-19
CPT/HCPCS: 31500; 94002; 36415; 71045; 71046; 71101; 71260; 72128; 72131; 74177; 80048; 80053; 81001; 82803; 82962; 83605; 83690; 83735; 83880; 84145; 84478; 84484; 85007; 85025; 85651; 86140; 87040; 87070; 87081; 87086; 87088; 87186; 87205; 93005; 94003; 94640; 94660; 94761; 96365; 96367; 96375; 99283; 99285; C9803; J0330; J0456; J1335; J2704; Q9967; U0003; U0005

== ENCOUNTER 2021-07-15 22:14 | Inpatient (IN) | payer MEDICARE, MEDICAID, SELFPAY ==
[2021-07-15 21:46] VITALS: BP 111/96; PULSE 81; RESP 23; TEMP 37.3; O2SAT 78; BMI 35.4
[2021-07-15 21:57] VITALS: BMI 35.4
--- NOTE | 2021-07-15 21:59 | ECG_ITS ---
APPROVED REPORT Exam: Resting ECG HR:101 bpm ECG Measurements Heart Rate 101 AXES AZ 160 P 85 QRSd 82 QRS 78 QT 326 T 74 QTc 384 Conclusion SINUS TACHYCARDIA MINIMAL ST DEPRESSION [0.025+ mV ST DEPRESSION] ABNORMAL RHYTHM ECG UNCONFIRMED REPORT Electronically signed by : Saturnino Farmer MD 07/16/2021 20:11:28
--- NOTE | 2021-07-15 22:11 | XR_ITS ---
PROCEDURE INFORMATION: Exam: XR Chest Exam date and time: 07/15/2021 10:17 PM Age: 71 years old Clinical indication: Other: Hypoxia TECHNIQUE: Imaging protocol: XR of the chest. Views: 1 view. COMPARISON: CR XR CHEST PORTABLE 03/03/2021 5:03 AM FINDINGS: Lungs: Interstitial opacities in both lungs findings concerning for severe pneumonia. Pleural spaces: Unremarkable. No pleural effusion. No pneumothorax. Heart/Mediastinum: Cardiomegaly. Bones/joints: Unremarkable. IMPRESSION: Severe bilateral interstitial pneumonia
[2021-07-15 22:26] VITALS: PULSE 96; O2SAT 89
[2021-07-15 22:49] LABS: Basophils # 0.1 K/mm3 (0-0.2); Basophils % 0.4 % (0.1-2.0); Eosinophils # 0.2 K/mm3 (0.0-0.4); Eosinophils % 1.2 % (0.1-12.0); Hemoglobin 9.8 g/dL (12.2-16.2); Lymphocytes # 1.7 K/mm3 (0.7-4.5); Lymphocytes % 13.7 % (10-50); Mean Corpuscular HGB Conc 30.7 g/dL (31.8-35.4); Mean Corpuscular Hemoglobin 26.2 pg (27.0-31.2); Mean Corpuscular Volume 85.2 fl (81-99); Mean Platelet Volume 8.6 fl (7.4-10.4); Monocytes # 0.7 K/mm3 (0.1-1.0); Monocytes % 5.4 % (1.7-9.3); Neutrophils # 9.8 K/mm3 (1.8-7.8); Neutrophils % 79.3 % (37.0-80.0); Platelet Count 276 K/mm3 (142-424); Red Blood Count 3.75 M/mm3 (4.20-5.40); Red Cell Distribution Width 16.3 % (11.5-17.5); White Blood Count 12.4 K/mm3 (4.8-10.8)
[2021-07-15 22:53] VITALS: PULSE 81
[2021-07-15 22:54] VITALS: PULSE 83
[2021-07-15 22:54] LABS: Alanine Aminotransferase 20 U/L (12-78); Albumin Level 3.8 g/dl (3.5-5.0); Albumin/Globulin Ratio 1.2 (1.1-1.8); Alkaline Phosphatase 63 U/L (38-126); Aspartate Amino Transferase 18 U/L (14-36); Bilirubin,Total 0.7 mg/dl (0.2-1.3); Blood Urea Nitrogen 10 mg/dl (7-17); Calcium 8.8 mg/dl (8.4-10.2); Chloride 91 mmol/L (98-107); Creatinine Clearance Estimated 75 mL/min (50-200); Estimated Glomerular Filt Rate 62 ml/min (>60); GFR (African American) 75 ML/MIN (>60); Globulin 3.2 g/dL (1.3-3.2); Glucose 317 mg/dl (74-100); Magnesium 1.5 mg/dl (1.6-2.3); Potassium 3.8 mmoL/L (3.5-5.1); Sodium 135 mmol/L (136-145)
[2021-07-15 22:55] LABS: Lactic Acid 1.6 mmol/L (0.7-2.1)
[2021-07-15 22:59] LABS: Anion Gap 7.8 mEq/L (5-15); C-Reactive Protein 94.4 mg/L (0-4)
[2021-07-15 23:01] VITALS: BP 112/91; PULSE 99; O2SAT 92
[2021-07-15 23:02] LABS: Carbon Dioxide 40 mmol/L (22.0-30.0)
[2021-07-15 23:09] LABS: Troponin I < 0.01 ng/ml (0.00-0.034)
[2021-07-15 23:13] LABS: Procalcitonin 0.136 ng/mL (0.0-2.0)
[2021-07-15 23:19] LABS: Erythrocyte Sedimentation Rate 95 mm/hr (0-30)
[2021-07-15 23:24] LABS: Coronavirus 19, PCR Not Detected (NotDetected); Influenza A, PCR Not Detected (NotDetected); Influenza B, PCR Not Detected (NotDetected)
[2021-07-15 23:45] VITALS: BP 101/68; PULSE 99; O2SAT 92
--- NOTE | 2021-07-15 23:57 | PC.NURSE ---
Pt brief changed, and rolled onto side for comfort
[2021-07-16] VITALS (14 sets, daily range): BP systolic 100–134; BP diastolic 52–76; PULSE 67–112; RESP 15–22; TEMP 36.7–37.7; O2SAT 85–96; BMI 31.4; BMI 31.9
--- NOTE | 2021-07-16 | HMH.EDSOB ---
ED Disposition Clinical Impression: Bipolar 1 disorder, Morbid obesity with alveolar hypoventilation, Acute on chronic respiratory failure with hypoxia and hypercapnia, Severe sepsis with acute organ dysfunction CAP (community acquired pneumonia) Qualifiers: Laterality: unspecified laterality Qualified Code(s): J18.9 - Pneumonia, unspecified organism Diabetes mellitus Qualifiers: Diabetes mellitus type: type 2 Diabetes mellitus chcf insulin use: unspecified chcf insulin use status Diabetes mellitus complication status: with other specified complication Qualified Code(s): E11.69 - Type 2 diabetes mellitus with other specified complication Disposition: Admitted As Inpatient Condition on Discharge: Serious - Critical Care Critical Care Time: No Attestation: On 07/15/21, the high probability of a clinically significant, sudden or life threatening deterioration of the following system(s) required my full and direct attention, intervention and personal management. The time I documented below is in addition to time spent performing reported procedures but includes the following listed in this critical care notation. Medical Decision Making - Medical Records Medical records reviewed: Yes: I reviewed the patient's medical records. - José Miguel Inquiry Pt receiving controlled substance: No Vital Signs: 07/15/21 21:46 07/15/21 22:26 07/15/21 22:53 Temperature 99.1 F Temperature Source Oral Pulse Rate 96 H 81 Pulse Rate [Right] 81 Respiratory Rate 23 Blood Pressure Blood Pressure [Right Arm] 111/96 H Blood Pressure Mean Blood Pressure Mean [Right Arm] 101 Blood Pressure Source [Right Arm] Automatic Cuff 02 Sat by Pulse Oximetry 78 L 89 L Oxygen Delivery Method Nasal Cannula Nasal Cannula Oxygen Flow Rate (LPM) 3 4 07/15/21 22:54 07/15/21 23:01 07/15/21 23:45 Temperature Temperature Source Pulse Rate 83 99 H 99 H Pulse Rate [Right] Respiratory Rate Blood Pressure 112/91 H 101/68 L Blood Pressure [Right Arm] Blood Pressure Mean 98 Blood Pressure Mean [Right Arm] Blood Pressure Source [Right Arm] 02 Sat by Pulse Oximetry 92 L 92 L Oxygen Delivery Method Nasal Cannula Nasal Cannula Oxygen Flow Rate (LPM) 5 5 07/16/21 00:00 Temperature Temperature Source Pulse Rate 112 H Pulse Rate [Right] Respiratory Rate Blood Pressure 124/58 L Blood Pressure [Right Arm] Blood Pressure Mean Blood Pressure Mean [Right Arm] Blood Pressure Source [Right Arm] 02 Sat by Pulse Oximetry 85 L Oxygen Delivery Method Nasal Cannula Oxygen Flow Rate (LPM) 3 - Lab Data Lab results reviewed: Yes: I reviewed the patient's lab results. Lab Results 07/15/21 21:59: Specimen Source Right radial, O2 % 6, ABG pH 7.38, ABG pCO2 68.6 H, ABG pO2 48.3 L, ABG HCO3 39.7 H, ABG Total CO2 41.8 H, ABG O2 Saturation 84 L*, ABG Base Excess 14.5 H, Jaylen Test Y 07/15/21 22:30: WBC 12.4 H, RBC 3.75 L, Hgb 9.8 L, Hct 32.0 L, MCV 85.2, MCH 26.2 L, MCHC 30.7 L, RDW 16.3, Plt Count 276, MPV 8.6, Neut % (Auto) 79.3, Lymph % (Auto) 13.7, Harding % (Auto) 5.4, Eos % (Auto) 1.2, Baso % (Auto) 0.4, Neut # (Auto) 9.8 H, Lymph # (Auto) 1.7, Harding # (Auto) 0.7, Eos # (Auto) 0.2, Baso # (Auto) 0.1, ESR 95 H 07/15/21 22:30: Sodium 135 L, Potassium 3.8, Chloride 91 L, Carbon Dioxide 40 H, Anion Gap 7.8, BUN 10, Creatinine 0.90, Estimated Creat Clear 75, Estimated GFR 62, Est GFR ( Amer) 75, Glucose 317 H, Calcium 8.8, Magnesium 1.5 L, Total Bilirubin 0.7, AST 18, ALT 20, Alkaline Phosphatase 63, Troponin I < 0.01, C-Reactive Protein 94.4 H, Total Protein 7.0, Albumin 3.8, Globulin 3.2, Albumin/Globulin Ratio 1.2, Procalcitonin 0.136 07/15/21 22:30: Lactate 1.6 07/15/21 23:20: SARS-CoV-2 (PCR) Not detected, Influenza A Untype (PCR) Not detected, Influenza Type B (PCR) Not detected Result diagrams: 07/15/21 22:30 07/15/21 22:30 Orders (Tests/Meds): ED MEDICATIONS Generic Name Dose Route Start
[2021-07-16 00:42] LABS: ABG Base Excess 14.5 mmol/L (-2.4-2.3); ABG HCO3 39.7 mmhg (22.0-26.0); ABG Oxygen Saturation 84 % (90-100); ABG PH 7.38 mmol/L (7.35-7.45); ABG TCO2 41.8 mmhg (23-27)
[2021-07-16 00:43] LABS: ABG PCO2 68.6 mmhg (35.0-45.0); ABG PO2 48.3 mmhg (80-100); Allen's Test Y; Oxygen 6 %; Source Right Radial
[2021-07-16 01:09] LABS: Troponin I < 0.01 ng/ml (0.00-0.034)
--- NOTE | 2021-07-16 01:27 | PC.NURSE ---
patient arrived to floor at this time from ED via stretcher
--- NOTE | 2021-07-16 03:14 | PC.NURSE ---
Patient admitted to floor to the best of this nurses ability. Patient is fatigued. Patient placed on vapotherm 25L/60. Patient sating low 90's. Patient producing green/yellow sputum often. ABX administered per may. VSS patient resting.
[2021-07-16 04:24] LABS: Troponin I < 0.01 ng/ml (0.00-0.034)
--- NOTE | 2021-07-16 09:15 | HMH.PHAVTE ---
[facility] VTE Monitoring - Patient Demographics Admission date: 07/16/21 Report Date: 07/16/21 Time: 09:15 Allergies/Adverse Reactions: Patient Allergies orange juice Allergy (Mild, Verified 07/07/21 14:00) Rash Height: 1.6 m Weight: 65 kg Patient Problems: Current Active Problems Acute on chronic respiratory failure with hypoxia and hypercapnia (Acute) Severe sepsis with acute organ dysfunction (Acute) Morbid obesity with alveolar hypoventilation (Chronic) CAP (community acquired pneumonia) (Acute) Bipolar 1 disorder (Chronic) Diabetes mellitus (Chronic) - VTE Risk Labs: VTE Related Lab Results Hgb 9.8 g/dL (12.2-16.2) L 07/15/21 22:30 Hct 32.0 % (37.0-47.0) L 07/15/21 22:30 Plt Count 276 K/mm3 (142-424) 07/15/21 22:30 BUN 10 mg/dl (7-17) 07/15/21 22:30 Creatinine 0.90 mg/dl (0.52-1.04) 07/15/21 22:30 Estimated Creat Clear 75 mL/min (50-200) 07/15/21 22:30 VTE Score: 8 VTE Risk Level: Moderate Risk - Prophylaxis VTE Prophylaxis Ordered?: Yes Types of VTE Prophylaxis: TEDS Knee High Location of Applied Device: Bilateral Lower Extremeties
--- NOTE | 2021-07-16 10:43 | HMH.HP ---
*Admission Date: 07/16/21 *Chief complaint: sob *History of present illness: this patient with progressive sob with prod cough at ecf was sent to ed for eval - pt was noted in the ed with green prod sputum and abn cxr and abg and was admitted for treatment - pt has hx of resp failure requiring intubation in past - [facility] History I have reviewed the patient's past medical history: Yes Medical History: Reports:: Anxiety, Congestive Heart Failure, Chronic Obstructive Pulmonary Disease (COPD), Coronary Artery Disease, Diabetes Mellitus Type 2, Gastroesophageal Reflux Disease(GERD), Home Oxygen, Hyperlipidemia, Hypertension, Lung Disease, Peripheral Vascular Disease Denies:: Cancer, Diabetes Mellitus Type 1, Internal Pacemaker, MRSA *Have you ever received a pneumonia vaccine?: No (pt unsure) *Have you received a flu vaccine this season?: No (pt unsure) Other Medical History: Reports: Anemia, Arthritis, Sinus Problems, Other Other Surgeries: Yes: No Previous Surgery, Cholecystectomy, Colonoscopy, , Hysterectomy-Total, Other. No: Pacemaker Amputation: No Fractures: No - *Social History Smoking Status: Former smoker Tobacco Type: cigarettes # Packs/Day (cigarettes): 1 #Yrs smoked (if former smoker): 50 Alcohol Intake: never Alcohol Intake Frequency:: 3 or more drinks per day Substance Use Type: denies use *Occupational Status:: retired Housing: retirement Household Members: other *Travel in the last 8 weeks: None - Psychiatric History Pschychiatric History:: Reports:: Anxiety, Bipolar Disorder Family Hx:: Unable to obtain Review of Systems - Review of Systems Review of systems:: pertinent systems reviewed and negative unless documented below - Constitutional Denies fever(s) - Eyes Denies change in vision - ENT Denies dizziness - *Cardiovascular Denies chest pain - *Respiratory Reports change in phlegm color, Reports cough, Reports shortness of breath, Denies coughing up blood - *Gastrointestinal Denies abdominal pain - *Genitourinary Denies pelvic pain - *Musculoskeletal Denies joint pain - Integumentary/Breasts Denies rash - *Neurologic Denies localized weakness, Denies loss of vision, Denies seizure-like activity - Psychiatric Reports anxiety Meds Home Medications Medication Instructions Recorded Confirmed Type Quetiapine Fumarate [Seroquel 25mg 25 mg PO HS 07/01/18 07/16/21 History tablet] Metformin HCl [Metformin ER 500 mg PO BID 04/13/19 07/16/21 History Osmotic] Spironolactone [Spironolactone 25 mg PO 0800,1700 04/13/19 07/16/21 History 25mg Tablet] Cholecalciferol (Vitamin D3) 400 unit PO BID 04/20/19 07/16/21 History [Vitamin D3] Ondansetron [Zofran 4mg ODT] 4 mg PO Q8HP PRN 04/20/19 07/16/21 History Acetaminophen [Acetaminophen Extra 500 mg PO Q4HP PRN 11/20/19 07/16/21 History Strength] Omeprazole [Omeprazole 20mg 20 mg PO DAILY 11/20/19 07/16/21 History Capsule] albuterol sulfate 90 mcg/actuation 1 inh INHALATION QID PRN #8.5 g 05/26/20 07/16/21 Rx aerosol inhaler Buspirone HCl [Buspar 5mg tablet] 5 mg PO BID 08/15/20 07/16/21 History Fluticasone/Umeclidin/Vilanter 1 puff IH DAILY 08/15/20 07/16/21 History [Trelegy Ellipta 100-62.5-25] Loperamide HCl [Imodium 2 mg 2 mg PO Q4HP PRN 08/15/20 07/16/21 History capsule] Ipratropium/Albuterol Sulfate 3 ml IH Q6HP PRN 30 Days #120 08/18/20 07/16/21 Rx [Duoneb 3mL neb] ampul.neb Calcium Carbonate [Calcium Antacid] 400 mg PO QIDP PRN 09/19/20 07/16/21 History Ibuprofen 200 mg PO Q6HP PRN 09/19/20 07/16/21 History Lactulose [Constulose] 30 ml PO DAILYP PRN 09/19/20 07/16/21 History Furosemide [Furosemide 20mg Tab*] 20 mg PO DAILY 02/24/21 07/16/21 History Metoprolol Succinate [Metoprolol 25 mg PO DAILY 02/24/21 07/16/21 History Succinate 25mg Tablet*] guaiFENesin [Guaifenesin] 200 mg PO Q6HP PRN 02/25/21 07/16/21 History gabapentin 100 mg capsule 100 mg PO TID #90 cap 04/28/21
--- NOTE | 2021-07-16 11:29 | HMH.PHAINT ---
MEDICATION RECONCILIATION COMPLETED ON PATIENT USING MAR FROM [facility]. -CURT KRISHNAN, KAELAD
[2021-07-17] VITALS (14 sets, daily range): BP systolic 105–162; BP diastolic 56–72; PULSE 69–106; RESP 18–20; TEMP 36.6–37.2; O2SAT 87–96; BMI 31.9; BMI 31.8
--- NOTE | 2021-07-17 06:28 | PC.NURSE ---
Pt stated that she does not feel that the medications that she has been getting for sob have been effective. Pt stated that she normally gets colds and coughs at this time and felt that she did not need to be admitted but she is currently on vaportherm. Asked PT if she is usually on such high amounts of oxygen and she said no. That is why i am here i guess. Pt is alert but unable to answer orientation questions. Pt stated where I live. I do not need to know those things. They take care of all my needs and laughed. Pt able to recall her name and and her location but does not know the day or the year.
--- NOTE | 2021-07-17 09:09 | SW/DCPLANNER ---
Addendum entered by Shanel Benitez 07/19/21 09:00: The plan for this patient is to discharge back to [facility] ICF level of care today. Carolyn baeza/ Imtiaz Varela has stated that patient will not require a COVID swab prior to discharge. Addendum entered by Shanel Benitez 07/18/21 10:21: Updated patient information will be faxed to Carolyn baeza/ Imtiaz Varela. Discharge date is unknown at this time. Original Note: This patient currently resides at [facility]. I spoke with Carolyn from [place] to confirm patient is ICF level of care. I will continue to follow up with Carolyn until patient is medically stable for discharge. Discharge date is unknown at this time.
--- NOTE | 2021-07-17 09:11 | HMH.ACPN2 ---
Internal Medicine - PN: Subj *Date: 07/17/21 *Time: 08:50 Interval history: pt sitting up in bed asking to go back to [place], on vapertherm Exam Vital signs and Labs for Last 24 Hours: Temp Pulse Resp BP Pulse Ox 98.3 F 91 H 20 127/72 92 L 07/17/21 07:52 07/17/21 07:52 07/17/21 07:52 07/17/21 07:52 07/17/21 07:52 I & O for Last 24 hours: Intake & Output 07/14/21 07/15/21 07/16/21 07/17/21 11:59 11:59 11:59 11:59 Intake Total 240 / 240 1320 / 1320 Output Total 3050 / 3050 Balance 240 / 240 -1730 / -1730 Weight 180 lb 4.8 oz 180 lb 4.8 oz Microbiology Reports for the Last 24 Hours: Microbiology 07/15/21 22:30 Sputum - Expectorated Sputum Gram Stain - Final 07/15/21 22:30 Sputum - Expectorated Sputum Sputum Culture - Preliminary 07/16/21 02:00 Rectum CRE Surveillance Culture - Final - Constitutional no acute distress, chronically ill appearing - *Routine HEENT Exam Head: Present: normocephalic Eye: Present: PERRL ENT: Present: mucous membranes moist - *Routine Neck Exam Present: supple. Absent: lymphadenopathy - *Routine Respiratory Exam Present: wheezes, diminished air movement - *Routine Cardiovascular Exam Present: RRR - *Routine Abdominal Exam Present: soft, normoactive bowel sounds. Absent: tenderness - *Routine Extremities Exam Absent: cyanosis, clubbing, edema - *Routine Skin Exam Present: warm. 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 insulin use status Diabetes mellitus complication status: with other specified complication Qualified Code(s): E11.69 - Type 2 diabetes mellitus with other specified complication Category: Medical Code(s): E11.9 - Type 2 diabetes mellitus without complications (4) Acute and chronic respiratory failure ([id number]) Status: Acute Qualifiers: Respiratory failure complication: unspecified whether with hypoxia or hypercapnia Qualified Code(s): J96.20 - Acute and chronic respiratory failure, unspecified whether with hypoxia or hypercapnia Category: Medical Code(s): J96.20 - Acute and chronic respiratory failure, unspecified whether with hypoxia or hypercapnia (5) Pneumonia Status: Acute Qualifiers: Pneumonia type: due to unspecified organism Laterality: bilateral Lung location: unspecified part of lung Qualified Code(s): J18.9 - Pneumonia, unspecified organism Category: Medical Code(s): J18.9 - Pneumonia, unspecified organism (6) Peripheral arterial disease Status: Chronic Category: Medical Code(s): I73.9 - Peripheral vascular disease, unspecified (7) Pickwickian syndrome Status: Chronic Category: Medical Code(s): E66.2 - Morbid (severe) obesity with alveolar hypoventilation (8) Pulmonary HTN Status: Chronic Category: Medical Code(s): I27.20 - Pulmonary hypertension, unspecified - Assessment and plan all Dx Assessment and Plan for all problems:: rounded with dr vega all orders per dr vega pulm consult wean vapertherm pt/ot
--- NOTE | 2021-07-17 09:15 | HMH.PULMCON ---
*Admission Date: 07/16/21 *History of present illness: Ms. Dunbar is a 71-year-old female COPD on triple inhaler therapy at home presented to the hospital with worsening respiratory and productive phlegm pulmonary was called for further management. [facility] History Medical History: Reports:: Anxiety, Congestive Heart Failure, Chronic Obstructive Pulmonary Disease (COPD), Coronary Artery Disease, Diabetes Mellitus Type 2, Gastroesophageal Reflux Disease(GERD), Home Oxygen, Hyperlipidemia, Hypertension, Lung Disease, Peripheral Vascular Disease Denies:: Cancer, Diabetes Mellitus Type 1, Internal Pacemaker, MRSA *Have you ever received a pneumonia vaccine?: No (pt unsure) *Have you received a flu vaccine this season?: No (pt unsure) Other Medical History: Reports: Anemia, Arthritis, Sinus Problems, Other Other Surgeries: Yes: No Previous Surgery, Cholecystectomy, Colonoscopy, , Hysterectomy-Total, Other. No: Pacemaker Amputation: No Fractures: No - *Social History Smoking Status: Former smoker Tobacco Type: cigarettes # Packs/Day (cigarettes): 1 #Yrs smoked (if former smoker): 50 Alcohol Intake: never Alcohol Intake Frequency:: 3 or more drinks per day Substance Use Type: denies use *Occupational Status:: retired Housing: half-way Household Members: other *Travel in the last 8 weeks: None - Psychiatric History Pschychiatric History:: Reports:: Anxiety, Bipolar Disorder Family Hx:: Unable to obtain ROS - Cons Denies anorexia, Denies body ache(s), Denies chills - Eyes Reports blurry vision - ENT Denies bleeding gums - Card Reports shortness of breath, Reports shortness of breath with activity - Resp Respiratory: Reports shortness of breath, Reports chest congestion, Reports excessive phlegm production, Reports cough with sputum production - GI Gastrointestingal: Denies: abdominal pain - [place] Musculoskeletal: Reports muscle aches - Psych Denies thoughts of hurting/killing others, Denies thoughts of hurting/killing yourself Meds Home Medications Medication Instructions Recorded Confirmed Type Quetiapine Fumarate [Seroquel 25mg 25 mg PO HS 07/01/18 07/16/21 History tablet] Metformin HCl [Metformin ER 500 mg PO BID 04/13/19 07/16/21 History Osmotic] Spironolactone [Spironolactone 25 mg PO 0800,1700 04/13/19 07/16/21 History 25mg Tablet] Cholecalciferol (Vitamin D3) 400 unit PO BID 04/20/19 07/16/21 History [Vitamin D3] Ondansetron [Zofran 4mg ODT] 4 mg PO Q8HP PRN 04/20/19 07/16/21 History Acetaminophen [Acetaminophen Extra 500 mg PO Q4HP PRN 11/20/19 07/16/21 History Strength] Omeprazole [Omeprazole 20mg 20 mg PO DAILY 11/20/19 07/16/21 History Capsule] albuterol sulfate 90 mcg/actuation 1 inh INHALATION QID PRN #8.5 g 05/26/20 07/16/21 Rx aerosol inhaler Buspirone HCl [Buspar 5mg tablet] 5 mg PO BID 08/15/20 07/16/21 History Fluticasone/Umeclidin/Vilanter 1 puff IH DAILY 08/15/20 07/16/21 History [Trelegy Ellipta 100-62.5-25] Loperamide HCl [Imodium 2 mg 2 mg PO Q4HP PRN 08/15/20 07/16/21 History capsule] Ipratropium/Albuterol Sulfate 3 ml IH Q6HP PRN 30 Days #120 08/18/20 07/16/21 Rx [Duoneb 3mL neb] ampul.neb Calcium Carbonate [Calcium Antacid] 400 mg PO QIDP PRN 09/19/20 07/16/21 History Ibuprofen 200 mg PO Q6HP PRN 09/19/20 07/16/21 History Lactulose [Constulose] 30 ml PO DAILYP PRN 09/19/20 07/16/21 History Furosemide [Furosemide 20mg Tab*] 20 mg PO DAILY 02/24/21 07/16/21 History Metoprolol Succinate [Metoprolol 25 mg PO DAILY 02/24/21 07/16/21 History Succinate 25mg Tablet*] guaiFENesin [Guaifenesin] 200 mg PO Q6HP PRN 02/25/21 07/16/21 History gabapentin 100 mg capsule 100 mg PO TID #90 cap 04/28/21 07/16/21 Rx lorazepam 0.5 mg tablet 0.25 mg PO BID #30 tab 05/08/21 07/16/21 Rx hydrocodone 5 mg-acetaminophen 325 1 tab PO BID PRN #60 tab 07/10/21 07/16/21 Rx mg tablet Alendronate Sodium [Fosamax 70mg 70 mg PO WEEKLY 07/16/21
[2021-07-17 09:22] LABS: Anion Gap 7.2 mEq/L (5-15); Blood Urea Nitrogen 21 mg/dl (7-17); Carbon Dioxide 38 mmol/L (22.0-30.0); Chloride 92 mmol/L (98-107); Creatinine Clearance Estimated 68 mL/min (50-200); Estimated Glomerular Filt Rate 71 ml/min (>60); GFR (African American) 86 ML/MIN (>60); Glucose 363 mg/dl (74-100); Potassium 4.2 mmoL/L (3.5-5.1); Sodium 133 mmol/L (136-145)
[2021-07-17 09:26] LABS: Basophils % 0.1 % (0.1-2.0); Hematocrit 27.6 % (37.0-47.0); Hemoglobin 8.6 g/dL (12.2-16.2); Lymphocytes # 0.6 K/mm3 (0.7-4.5); Lymphocytes % 4.7 % (10-50); Mean Corpuscular HGB Conc 31.1 g/dL (31.8-35.4); Mean Corpuscular Volume 83.5 fl (81-99); Monocytes # 0.3 K/mm3 (0.1-1.0); Monocytes % 2.5 % (1.7-9.3); Neutrophils # 11.1 K/mm3 (1.8-7.8); Neutrophils % 92.7 % (37.0-80.0); Platelet Count 280 K/mm3 (142-424); Red Blood Count 3.31 M/mm3 (4.20-5.40); Red Cell Distribution Width 16.5 % (11.5-17.5)
[2021-07-17 09:31] LABS: MANUAL DIFFERENTIAL MANUAL DIFFERENTIAL (MANUAL DIFF)
--- NOTE | 2021-07-17 09:50 | PC.NURSE ---
INTAKE OF 2011 DOCUMENTED THIS MORNING IS TOTAL SINCE ADMISSION
[2021-07-17 09:53] LABS: Anisocytosis 1+; Lymphocytes % 6 % (10-50); Monocytes % 3 % (2-9); Neutrophils % 91 % (42-76); Platelet Estimate Normal; Total Cells Counted 100
[2021-07-17 09:54] LABS: Hypochromasia 2+
[2021-07-17 20:11] LABS: POC Glucose,Bedside 321 (70-110)
[2021-07-17 20:11] LABS: POC Glucose,Bedside 259 (70-110)
[2021-07-17 20:11] LABS: POC Glucose,Bedside 314 (70-110)
[2021-07-17 20:11] LABS: POC Glucose,Bedside 255 (70-110)
[2021-07-17 20:11] LABS: POC Glucose,Bedside 436 (70-110)
[2021-07-17 20:11] LABS: POC Glucose,Bedside 378 (70-110)
[2021-07-17 20:11] LABS: POC Glucose,Bedside 387 (70-110)
[2021-07-18] VITALS (12 sets, daily range): BP systolic 116–141; BP diastolic 59–78; PULSE 61–93; RESP 16–20; TEMP 36.2–37; O2SAT 90–95; BMI 32.0
[2021-07-18 06:31] LABS: Chloride 99 mmol/L (98-107); Sodium 137 mmol/L (136-145)
[2021-07-18 06:34] LABS: Blood Urea Nitrogen 19 mg/dl (7-17); Creatinine Clearance Estimated 68 mL/min (50-200); Estimated Glomerular Filt Rate 83 ml/min (>60); GFR (African American) 100 ML/MIN (>60); Potassium 4.3 mmoL/L (3.5-5.1)
[2021-07-18 06:35] LABS: Anion Gap 5.3 mEq/L (5-15); Calcium 8.3 mg/dl (8.4-10.2); Carbon Dioxide 37 mmol/L (22.0-30.0); Glucose 291 mg/dl (74-100)
[2021-07-18 06:41] LABS: Basophils % 0.1 % (0.1-2.0); Eosinophils % 0.1 % (0.1-12.0); Hemoglobin 9.1 g/dL (12.2-16.2); Lymphocytes # 0.7 K/mm3 (0.7-4.5); Mean Corpuscular HGB Conc 31.2 g/dL (31.8-35.4); Mean Corpuscular Hemoglobin 25.7 pg (27.0-31.2); Mean Corpuscular Volume 82.4 fl (81-99); Monocytes # 0.3 K/mm3 (0.1-1.0); Monocytes % 2.8 % (1.7-9.3); Platelet Count 285 K/mm3 (142-424); Red Blood Count 3.53 M/mm3 (4.20-5.40); Red Cell Distribution Width 16.4 % (11.5-17.5)
[2021-07-18 06:44] LABS: MANUAL DIFFERENTIAL MANUAL DIFFERENTIAL (MANUAL DIFF)
[2021-07-18 07:53] LABS: Lymphocytes % 9 % (10-50); Monocytes % 3 % (2-9); Neutrophils % 88 % (42-76); Total Cells Counted 100
[2021-07-18 07:54] LABS: Anisocytosis 1+; Hypochromasia 1+; Platelet Estimate Normal
--- NOTE | 2021-07-18 09:29 | HMH.ACPN2 ---
Internal Medicine - PN: Subj *Date: 07/18/21 *Time: 13:02 Interval history: 71-year-old female patient sitting up in bed, She reports feeling better and is requesting to be discharged today. Current oxygenation 92% on Vapotherm. Long discussion with patient on need to stay for continued treatment and decreased oxygen requirements Exam Vital signs and Labs for Last 24 Hours: Temp Pulse Resp BP Pulse Ox 98.6 F 79 16 136/70 93 L 07/18/21 08:00 07/18/21 08:00 07/18/21 08:00 07/18/21 08:00 07/18/21 08:00 Laboratory Results - last 24 hr 07/16/21 05:06: POC Glucose 314 H* 07/16/21 11:18: POC Glucose 436 H* 07/16/21 16:51: POC Glucose 259 H 07/16/21 22:38: POC Glucose 387 H* 07/17/21 06:17: POC Glucose 255 H 07/17/21 08:40: WBC 12.0 H, RBC 3.31 L, Hgb 8.6 L, Hct 27.6 L, MCV 83.5, MCH 26.0 L, MCHC 31.1 L, RDW 16.5, Plt Count 280, MPV 9.0, Neut % (Auto) 92.7 H, Lymph % (Auto) 4.7 L, [place] % (Auto) 2.5, Eos % (Auto) 0.0 L, Baso % (Auto) 0.1, Neut # (Auto) 11.1 H, Lymph # (Auto) 0.6 L, [place] # (Auto) 0.3, Eos # (Auto) 0.0, Baso # (Auto) 0.0, Total Counted 100, Neutrophils % (Manual) 91 H, Lymphocytes % (Manual) 6 L, Monocytes % (Manual) 3, Platelet Estimate Normal, Hypochromasia 2+, Anisocytosis 1+ 07/17/21 11:41: POC Glucose 321 H* 07/17/21 16:15: POC Glucose 378 H* 07/18/21 05:54: WBC 9.0, RBC 3.53 L, Hgb 9.1 L, Hct 29.0 L, MCV 82.4, MCH 25.7 L, MCHC 31.2 L, RDW 16.4, Plt Count 285, MPV 8.0, Neut % (Auto) 89.0 H, Lymph % (Auto) 8.0 L, [place] % (Auto) 2.8, Eos % (Auto) 0.1, Baso % (Auto) 0.1, Neut # (Auto) 8.0 H, Lymph # (Auto) 0.7, [place] # (Auto) 0.3, Eos # (Auto) 0.0, Baso # (Auto) 0.0, Total Counted 100, Neutrophils % (Manual) 88 H, Lymphocytes % (Manual) 9 L, Monocytes % (Manual) 3, Platelet Estimate Normal, RBC Morphology Not Reportable, Hypochromasia 1+, Anisocytosis 1+ 07/18/21 05:54: Sodium 137, Potassium 4.3, Chloride 99, Carbon Dioxide 37 H, Anion Gap 5.3, BUN 19 H, Creatinine 0.70, Estimated Creat Clear 68, Estimated GFR 83, Est GFR ( Amer) 100, Glucose 291 H, Calcium 8.3 L I & O for Last 24 hours: Intake & Output 07/15/21 07/16/21 07/17/21 07/18/21 23:59 23:59 23:59 23:59 Intake Total 960 / 960 3811 / 3811 Output Total 1300 / 2200 4450 / 5350 900 / 900 Balance -340 / -1240 -639 / -1539 -900 / -900 Weight 200 lb 180 lb 4.8 oz 180 lb 1.883 oz 180 lb 8.937 oz Microbiology Reports for the Last 24 Hours: Microbiology 07/15/21 22:30 Blood Blood Culture - Preliminary NO GROWTH AFTER 48 HOURS 07/15/21 22:30 Blood Blood Culture - Preliminary NO GROWTH AFTER 48 HOURS 07/15/21 22:30 Sputum - Expectorated Sputum Gram Stain - Final 07/15/21 22:30 Sputum - Expectorated Sputum Sputum Culture - Preliminary 07/16/21 02:00 Rectum CRE Surveillance Culture - Final - Constitutional no acute distress, chronically ill appearing - *Routine HEENT Exam Head: Present: normocephalic Eye: Present: EOMI ENT: Present: mucous membranes moist - *Routine Neck Exam Present: trachea midline. Absent: tracheal deviation - *Routine Respiratory Exam Present: CTA bilaterally. Absent: accessory muscle use - *Routine Cardiovascular Exam Present: RRR - *Routine Abdominal Exam Present: soft, normoactive bowel sounds. Absent: tenderness, firm - *Routine Extremities Exam Present: edema, full ROM, pulses intact. Absent: cyanosis, clubbing - *Routine Skin Exam Present: intact, dry, warm. Absent: cyanosis, erythema - *Routine Neurological Exam Present: alert, oriented X3. Absent: motor deficit - Routine Psychiatric Exam Present: normal affect, normal thought process. Absent: auditory hallucinations Assessment and Plan (1) Bilateral pneumonia Status: Acute Qualifiers: Pneumonia type: due to unspecified organism Lung location: unspecified part of lung Qualified Code(s): J18.9 - Pneumonia, unspecified organism Category: Me
--- NOTE | 2021-07-18 10:12 | HMH.PULMPN ---
Internal Medicine - PN: Subj *Date: 07/18/21 *Time: 10:12 Interval history: No acute respiratory vents overnight. Patient admits continued improvement in her symptoms. Exam - Constitutional Constitutional:: Present: no acute distress, comfortable - HENMT Exam HENMT: Present: normocephalic - Eye Exam Eyes:: Present: normal appearance both eyes and related structures - Neck Exam Neck:: Present: normal visual inspection - Respiratory Exam Respiratory:: Present: able to speak in complete sentences, no respiratory distress. Absent: wheezing - Cardiovascular Exam Cardiac:: Present: S1, S2 - GI Exam GI:: Present: soft - Skin Exam Skin: Present: warm, no rash - Neurological Exam Neurological: Present: alert, awake - Extremities Exam Extremities: Present: no cyanosis, no clubbing Assessment and Plan (1) Bilateral pneumonia Status: Acute Qualifiers: Pneumonia type: due to unspecified organism Lung location: unspecified part of lung Qualified Code(s): J18.9 - Pneumonia, unspecified organism Category: Medical Code(s): J18.9 - Pneumonia, unspecified organism (2) Acute on chronic respiratory failure with hypoxia and hypercapnia Status: Acute Category: Medical Code(s): J96.21 - Acute and chronic respiratory failure with hypoxia; J96.22 - Acute and chronic respiratory failure with hypercapnia (3) Severe sepsis with acute organ dysfunction Status: Acute Category: Medical Code(s): A41.9 - Sepsis, unspecified organism; R65.20 - Severe sepsis without septic shock - Assessment and plan all Dx Assessment and Plan for all problems:: #Acute on chronic hypoxic respiratory failure: # CAP: COPD on triple inhaler therapy. Presents worsening respiratory distress. Admits cough with productive phlegm. ABG on admission showed prominent hypoxic respiratory failure along with hypercarbia which is well compensated. Leukocytosis noted. Chest x-ray admission diffuse bilateral worsening infiltrates and volume overload. Initiated on DuoNebs 3 times daily along with ceftriaxone azithromycin and steroids. Interval update: Patient oxygen comments continue to improve, weaned to 6 L. She received 40 mg IV Lasix yesterday. Continue to receive DuoNebs and steroids. Plan: -Continue oxygen supplementation, currently on nasal cannula @ 6L, wean as tolerated -Lasix 40 mg IV x 2 doses -DuoNebs every 6 hours along with budesonide every 12 schedule -Wean methylprednisolone to Prednisone -Continue ceftriaxone azithromycin, Wean to Augmentin on Discharge #Thank you for involving pulmonary in this patient care. We will continue to follow
--- NOTE | 2021-07-18 15:07 | PC.NURSE ---
PT IS AOX2 AND HAS BEEN PLEASANTLY COOPERATIVE THIS HSIFT. SHE HAS SPENT ALL AFTERNOON UP TO CHAIR AND TOLERATED WELL. X1 ASSIST TO THE BSC. SHE HAS BEEN TITRATED DOWN TO 6LNC SUCCESSFULLY WITH NO S/S OF ACUTE RESPIRATORY DISTRESS NOTED. MODERATE CROWN FORMED BM NOTED THIS SHIFT. ABD IS SOFT NON-TENDER WITH ACTIVE BSX4. DENIES N/V. NO COMPLAINTS VOICED THIS SHIFT.
[2021-07-18 16:57] LABS: POC Glucose,Bedside 358 (70-110)
[2021-07-19] VITALS (7 sets, daily range): BP systolic 127–168; BP diastolic 44–75; PULSE 67–90; RESP 16–20; TEMP 36.3–37; O2SAT 90–97; BMI 32.0
[2021-07-19 06:34] LABS: Basophils # 0.1 K/mm3 (0-0.2); Basophils % 0.7 % (0.1-2.0); Eosinophils % 0.3 % (0.1-12.0); Hematocrit 29.6 % (37.0-47.0); Hemoglobin 9.4 g/dL (12.2-16.2); Lymphocytes % 24.2 % (10-50); Mean Corpuscular HGB Conc 31.7 g/dL (31.8-35.4); Mean Corpuscular Volume 82.2 fl (81-99); Mean Platelet Volume 7.7 fl (7.4-10.4); Monocytes # 0.7 K/mm3 (0.1-1.0); Monocytes % 7.8 % (1.7-9.3); Neutrophils # 5.7 K/mm3 (1.8-7.8); Neutrophils % 67.1 % (37.0-80.0); Platelet Count 296 K/mm3 (142-424); Red Cell Distribution Width 16.6 % (11.5-17.5); White Blood Count 8.4 K/mm3 (4.8-10.8)
[2021-07-19 06:42] LABS: Blood Urea Nitrogen 25 mg/dl (7-17); Calcium 8.1 mg/dl (8.4-10.2); Chloride 97 mmol/L (98-107); Creatinine Clearance Estimated 68 mL/min (50-200); Estimated Glomerular Filt Rate 83 ml/min (>60); GFR (African American) 100 ML/MIN (>60); Glucose 161 mg/dl (74-100); Potassium 3.4 mmoL/L (3.5-5.1); Sodium 139 mmol/L (136-145)
[2021-07-19 06:49] LABS: Anion Gap 5.4 mEq/L (5-15); Carbon Dioxide 40 mmol/L (22.0-30.0)
--- NOTE | 2021-07-19 06:57 | PC.NURSE ---
Pt slept all night. Pt continues to use the pure wick for incont. Pt stated that she wanted to go home and be with her MIL for mothers day. Pt continues to be on 6ln/c. Pt is tolerating it well and remains in the low 90's most of the shift. Pt remains in good spirts and able to voice all needs.
--- NOTE | 2021-07-19 10:13 | HMH.DCSUM ---
General - General Admission date:: 07/16/21 Discharge date: 07/19/21 HPI HPI: this patient with progressive sob with prod cough at [facility] was sent to ed for eval - pt was noted in the ed with green prod sputum and abn cxr and abg and was admitted for treatment - pt has hx of resp failure requiring intubation in past - Hospital Course Hospital Course: Abnormal Lab Results 07/18/21 13:22: POC Glucose 358 H* 07/19/21 05:55: RBC 3.60 L, Hgb 9.4 L, Hct 29.6 L, MCH 26.0 L, MCHC 31.7 L 07/19/21 05:55: Potassium 3.4 L D, Chloride 97 L, Carbon Dioxide 40 H, BUN 25 H D, Glucose 161 H, Calcium 8.1 L Microbiology 07/15/21 22:30 Blood Blood Culture - Preliminary NO GROWTH AFTER 48 HOURS 07/15/21 22:30 Blood Blood Culture - Preliminary NO GROWTH AFTER 48 HOURS 07/15/21 22:30 Sputum - Expectorated Sputum Gram Stain - Final 07/15/21 22:30 Sputum - Expectorated Sputum Sputum Culture - Preliminary 07/16/21 02:00 Rectum CRE Surveillance Culture - Final -pulmology consult: Assessment and plan all Dx Assessment and Plan for all problems:: #Acute on chronic hypoxic respiratory failure: # CAP: COPD on triple inhaler therapy. Presents worsening respiratory distress. Admits cough with productive phlegm. ABG on admission showed prominent hypoxic respiratory failure along with hypercarbia which is well compensated. Leukocytosis noted. Chest x-ray admission diffuse bilateral worsening infiltrates and volume overload. Initiated on DuoNebs 3 times daily along with ceftriaxone azithromycin and steroids. Interval update: Patient oxygen comments continue to improve, weaned to 6 L. She received 40 mg IV Lasix yesterday. Continue to receive DuoNebs and steroids. Plan: -Continue oxygen supplementation, currently on nasal cannula @ 6L, wean as tolerated -Lasix 40 mg IV x 2 doses -DuoNebs every 6 hours along with budesonide every 12 schedule -Wean methylprednisolone to Prednisone -Continue ceftriaxone azithromycin, Wean to Augmentin on Discharge Discharge Plan (1) Bilateral pneumonia- Cre positive -Wean to Augmentin on Discharge for 7 more days, sputum cx no bug identified (2) Acute on chronic respiratory failure with hypoxia and hypercapnia-Continue oxygen supplementation, currently on nasal cannula @ 4L, wean as tolerated,DuoNebs every 6 hours along with budesonide every 12 schedule, prednisone (3) Severe sepsis with acute organ dysfunction-stable, resolved Objective Vital signs: Temp Pulse Resp BP Pulse Ox 97.8 F 86 16 132/71 94 L 07/19/21 08:00 07/19/21 08:00 07/19/21 08:00 07/19/21 08:00 07/19/21 08:00 no acute distress - *Routine HEENT Exam Head: Present: normocephalic Eye: Present: PERRL ENT: Present: mucous membranes moist - *Routine Neck Exam Present: supple - *Routine Respiratory Exam Present: wheezes - *Routine Cardiovascular Exam Present: RRR - *Routine Abdominal Exam Present: soft, normoactive bowel sounds. Absent: tenderness - *Routine Extremities Exam Absent: cyanosis, clubbing, edema - *Routine Skin Exam Present: warm. Absent: rash - *Routine Neurological Exam Present: alert, oriented X3 Results Labs on day of discharge: Labs from last 24 hours 07/19/21 07/19/21 07/18/21 05:55 05:55 13:22 WBC 8.4 RBC 3.60 L Hgb 9.4 L Hct 29.6 L MCV 82.2 MCH 26.0 L MCHC 31.7 L RDW 16.6 Plt Count 296 MPV 7.7 Neut % (Auto) 67.1 Lymph % (Auto) 24.2 [place] % (Auto) 7.8 Eos % (Auto) 0.3 Baso % (Auto) 0.7 Neut # (Auto) 5.7 Lymph # (Auto) 2.0 [place] # (Auto) 0.7 Eos # (Auto) 0.0 Baso # (Auto) 0.1 Sodium 139 Potassium 3.4 L D Chloride 97 L Carbon Dioxide 40 H Anion Gap 5.4 BUN 25 H D Creatinine 0.70 Estimated Creat Clear 68 Estimated GFR 83 Est GFR ( Amer) 100 Glucose 161 H POC Glucose 358 H*
--- NOTE | 2021-07-19 11:57 | HMH.PULMPN ---
Internal Medicine - PN: Subj *Date: 07/19/21 *Time: 11:57 Interval history: No acute respiratory events overnight. Patient admits continued improvement in her symptoms. Weaned to 3 L nasal cannula. Exam - Constitutional Constitutional:: Present: no acute distress, comfortable - HENMT Exam HENMT: Present: normocephalic - Eye Exam Eyes:: Present: normal appearance both eyes and related structures - Neck Exam Neck:: Present: normal visual inspection - Respiratory Exam Respiratory:: Present: able to speak in complete sentences, no respiratory distress. Absent: wheezing - Cardiovascular Exam Cardiac:: Present: S1, S2 - GI Exam GI:: Present: soft - Skin Exam Skin: Present: warm, no rash - Neurological Exam Neurological: Present: alert, awake - Extremities Exam Extremities: Present: no cyanosis, no clubbing - Psychiatric Exam Psychiatric: Present: normal affect Assessment and Plan (1) Bilateral pneumonia Status: Acute Qualifiers: Pneumonia type: due to unspecified organism Lung location: unspecified part of lung Qualified Code(s): J18.9 - Pneumonia, unspecified organism Category: Medical Code(s): J18.9 - Pneumonia, unspecified organism (2) Acute on chronic respiratory failure with hypoxia and hypercapnia Status: Acute Category: Medical Code(s): J96.21 - Acute and chronic respiratory failure with hypoxia; J96.22 - Acute and chronic respiratory failure with hypercapnia (3) Severe sepsis with acute organ dysfunction Status: Acute Category: Medical Code(s): A41.9 - Sepsis, unspecified organism; R65.20 - Severe sepsis without septic shock - Assessment and plan all Dx Assessment and Plan for all problems:: #Acute on chronic hypoxic respiratory failure: #CAP: COPD on triple inhaler therapy. On LTOT @ 3L at baseline. Presents worsening respiratory distress. Admits cough with productive phlegm. ABG on admission showed prominent hypoxic respiratory failure along with hypercarbia which is well compensated. Leukocytosis noted. Chest x-ray admission diffuse bilateral worsening infiltrates and volume overload. Initiated on DuoNebs 3 times daily along with ceftriaxone azithromycin and steroids. Interval update: No acute respiratory events overnight. Patient admits continued improvement in her symptoms. Weaned to 3 L nasal cannula. Continue to receive DuoNebs and steroids. Plan: -Continue oxygen supplementation, currently on nasal cannula @ 3L -Lasix 40 mg IV x 1 dose and 20 mEq Kcl repletion -DuoNebs every 6 hours along with budesonide every 12 schedule -Prednisone x 5 days -Continue ceftriaxone azithromycin, Wean to Augmentin 500 TID x 5 days on Discharge #Thank you for involving pulmonary in this patient care. Will follow the patient in pulmonary clinic 2 weeks post discharge.
[2021-07-20 01:13] LABS: POC Glucose,Bedside 147 (70-110)
[2021-07-20 01:13] LABS: POC Glucose,Bedside 304 (70-110)
[2021-07-20 01:13] LABS: POC Glucose,Bedside 265 (70-110)
[2021-07-20 01:13] LABS: POC Glucose,Bedside 234 (70-110)
--- NOTE | 2021-07-20 10:46 | PC.NURSE ---
Late entry: Yesterday pt's IV went bad while IV K run was infusing, called Dr. Lopez and he ordered a po x 1 dose per may of K.
--- NOTE | 2021-07-20 16:03 | CARE MANAGER ---
Contacted [facility] and they stated she is doing well and deny any questions or concerns.
== END 2021-07-19 16:17 | DRG 189 ==
LOC: ER 22:30 → 2ND 07-16 01:02
PROVIDERS: Nurse Practitioner Family; Admitting Provider Emergency Medicine; Emergency Provider Emergency Medicine; PCP Emergency Medicine; Visit Provider Emergency Medicine
DX: J96.22 Acute and chronic respiratory failure with hypercapnia (principal); J18.9 Pneumonia, unspecified organism; J44.0 Chronic obstructive pulmonary disease with (acute) lower respiratory infection; E66.2 Morbid (severe) obesity with alveolar hypoventilation; J96.21 Acute and chronic respiratory failure with hypoxia; Z20.822 Contact with and (suspected) exposure to COVID-19; Z68.32 Body mass index [BMI] 32.0-32.9, adult; Z99.81 Dependence on supplemental oxygen; Z87.891 Personal history of nicotine dependence; F41.9 Anxiety disorder, unspecified; I10 Essential (primary) hypertension; E78.5 Hyperlipidemia, unspecified; E11.51 Type 2 diabetes mellitus with diabetic peripheral angiopathy without gangrene; F31.9 Bipolar disorder, unspecified; M19.90 Unspecified osteoarthritis, unspecified site; Z79.84 Long term (current) use of oral hypoglycemic drugs; K21.9 Gastro-esophageal reflux disease without esophagitis; I27.20 Pulmonary hypertension, unspecified; D64.9 Anemia, unspecified
CPT/HCPCS: 36415; 71045; 80048; 80053; 82803; 82962; 83605; 83735; 84145; 84484; 85007; 85025; 85651; 86140; 87040; 87070; 87081; 87205; 93005; 94640; 94760; 96375; 99285; C9803; J0456; J0696; U0003; U0005

== ENCOUNTER 2021-08-06 14:39 | Inpatient (IN) | payer MEDICARE, MEDICAID, BC, SELFPAY ==
[2021-08-06] VITALS (11 sets, daily range): BP systolic 119–142; BP diastolic 45–77; PULSE 84–102; RESP 4–29; TEMP 36.6–37.3; O2SAT 88–97; BMI 35.4; BMI 31.0
--- NOTE | 2021-08-06 14:49 | XR_ITS ---
PROCEDURE INFORMATION: Exam: XR Chest Exam date and time: 08/06/2021 2:52 PM Age: 71 years old Clinical indication: Shortness of breath; Additional info: SOA TECHNIQUE: Imaging protocol: XR of the chest. Views: 1 view. COMPARISON: CR XR CHEST PORTABLE 07/15/2021 10:17 PM FINDINGS: Lungs: Persistent bilateral interstitial opacities, most pronounced at the lung bases. Pleural spaces: Unremarkable. No pleural effusion. No pneumothorax. Heart/Mediastinum: Unremarkable. No cardiomegaly. Bones/joints: Unremarkable. Other findings: Findings not significantly changed. IMPRESSION: Persistent bilateral interstitial pneumonia. Findings stable.
[2021-08-06 14:50] LABS: ABG Base Excess 8.4 mmol/L (-2.4-2.3); ABG Oxygen Saturation 95 % (90-100); ABG PH 7.29 mmol/L (7.35-7.45); ABG PO2 77.7 mmhg (80-100); ABG TCO2 37.3 mmhg (23-27)
[2021-08-06 14:51] LABS: Allen's Test Acceptable; Oxygen 6L %; Source Right Radial
[2021-08-06 14:52] LABS: ABG PCO2 74.7 mmhg (35.0-45.0)
--- NOTE | 2021-08-06 14:59 | ECG_ITS ---
APPROVED REPORT Exam: Resting ECG HR:100 bpm ECG Measurements Heart Rate 100 AXES QRSd 85 QRS 30 QT 330 T 55 QTc 387 Conclusion ATRIAL FIBRILLATION WITH RAPID VENTRICULAR RESPONSE LOW QRS VOLTAGE IN PRECORDIAL LEADS [QRS DEFLECTION < 1.0 mV IN CHEST LEADS] ABNORMAL RHYTHM ECG UNCONFIRMED REPORT Electronically signed by : Saturnino Farmer MD 08/07/2021 17:47:29
[2021-08-06 15:12] LABS: Basophils # 0.1 K/mm3 (0-0.2); Basophils % 0.5 % (0.1-2.0); Chloride 94 mmol/L (98-107); Eosinophils # 0.1 K/mm3 (0.0-0.4); Eosinophils % 1.2 % (0.1-12.0); Hemoglobin 9.9 g/dL (12.2-16.2); Lymphocytes # 1.2 K/mm3 (0.7-4.5); Lymphocytes % 12.5 % (10-50); Mean Corpuscular HGB Conc 30.1 g/dL (31.8-35.4); Mean Corpuscular Hemoglobin 25.6 pg (27.0-31.2); Mean Corpuscular Volume 85.1 fl (81-99); Mean Platelet Volume 8.2 fl (7.4-10.4); Monocytes # 0.6 K/mm3 (0.1-1.0); Monocytes % 6.5 % (1.7-9.3); Neutrophils # 7.7 K/mm3 (1.8-7.8); Neutrophils % 79.2 % (37.0-80.0); Platelet Count 189 K/mm3 (142-424); Potassium 4.9 mmoL/L (3.5-5.1); Red Blood Count 3.88 M/mm3 (4.20-5.40); Red Cell Distribution Width 16.9 % (11.5-17.5); Sodium 135 mmol/L (136-145); White Blood Count 9.7 K/mm3 (4.8-10.8)
[2021-08-06 15:14] LABS: Alanine Aminotransferase 33 U/L (12-78); Alkaline Phosphatase 57 U/L (38-126); Aspartate Amino Transferase 29 U/L (14-36); Bilirubin,Direct 0.1 mg/dl (0.0-0.4); Bilirubin,Indirect 1.1 mg/dL (0.0-0.9); Bilirubin,Total 1.2 mg/dl (0.2-1.3); Bilirubin,Unconjugated 1.1 mg/dL (0.0-1.1)
[2021-08-06 15:15] LABS: Albumin Level 3.3 g/dl (3.5-5.0); Anion Gap 6.9 mEq/L (5-15); Blood Urea Nitrogen 12 mg/dl (7-17); Carbon Dioxide 39 mmol/L (22.0-30.0); Creatinine Clearance Estimated 75 mL/min (50-200); Estimated Glomerular Filt Rate 71 ml/min (>60); GFR (African American) 86 ML/MIN (>60); Total Protein,Serum 5.8 g/dl (6.3-8.2)
[2021-08-06 15:16] LABS: Coronavirus 19, PCR Not Detected (NotDetected); Influenza A, PCR Not Detected (NotDetected); Influenza B, PCR Not Detected (NotDetected)
[2021-08-06 15:16] LABS: Calcium 8.8 mg/dl (8.4-10.2); Glucose 392 mg/dl (74-100); Lactic Acid 1.2 mmol/L (0.7-2.1)
--- NOTE | 2021-08-06 15:20 | HMH.EDGENADL ---
ED Disposition Clinical Impression: Elevated brain natriuretic peptide (BNP) level Respiratory failure with hypoxia and hypercapnia Qualifiers: Chronicity: acute on chronic Qualified Code(s): J96.21 - Acute and chronic respiratory failure with hypoxia; J96.22 - Acute and chronic respiratory failure with hypercapnia Pneumonia Qualifiers: Pneumonia type: due to unspecified organism Laterality: bilateral Lung location: lower lobe of lung Qualified Code(s): J18.9 - Pneumonia, unspecified organism Disposition: Admitted As Inpatient Condition on Discharge: Serious Referrals: Jarret Dennison MD [Primary Care Provider] - - Critical Care Critical Care Time: Yes Attestation: On 08/06/21, the high probability of a clinically significant, sudden or life threatening deterioration of the following system(s) required my full and direct attention, intervention and personal management. The time I documented below is in addition to time spent performing reported procedures but includes the following listed in this critical care notation. Total Critical Care Time: 30 Vital system(s) involved:: Respiratory Failure My critical care processes included: Assessment & monitoring of V/S, Initial and Re-exams, Data Review/Interpretation, Coordinating Care, Medication Orders and management, Documentation Medical Decision Making - Medical Records Medical records reviewed: Yes: I reviewed the patient's medical records. MR Comment: Reviewed discharge summary, pulmonary consultation report, emergency department note from recent admission 07/16/2021 for similar presentation with pneumonia, respiratory failure. - José Miguel Inquiry Pt receiving controlled substance: No Vital Signs: 08/06/21 14:47 08/06/21 15:22 Temperature 99.1 F Temperature Source Oral Pulse Rate 97 H Pulse Rate [Left Radial] 93 H Respiratory Rate 17 Blood Pressure [Right Arm] 142/48 H Blood Pressure Mean [Right Arm] 79 02 Sat by Pulse Oximetry 96 Oxygen Delivery Method Nasal Cannula Oxygen Flow Rate (LPM) 6 - Lab Data Lab Results 08/06/21 14:35: WBC 9.7, RBC 3.88 L, Hgb 9.9 L, Hct 33.0 L, MCV 85.1, MCH 25.6 L, MCHC 30.1 L, RDW 16.9, Plt Count 189, MPV 8.2, Neut % (Auto) 79.2, Lymph % (Auto) 12.5, [place] % (Auto) 6.5, Eos % (Auto) 1.2, Baso % (Auto) 0.5, Neut # (Auto) 7.7, Lymph # (Auto) 1.2, [place] # (Auto) 0.6, Eos # (Auto) 0.1, Baso # (Auto) 0.1 08/06/21 14:35: Sodium 135 L, Potassium 4.9, Chloride 94 L, Carbon Dioxide 39 H, Anion Gap 6.9, BUN 12, Creatinine 0.80, Estimated Creat Clear 75, Estimated GFR 71, Est GFR ( Amer) 86, Glucose 392 H, Calcium 8.8, Troponin I 0.03 08/06/21 14:35: Lactate 1.2 08/06/21 14:35: Total Bilirubin 1.2, Direct Bilirubin 0.1, Conjugated Bilirubin 0.0, Indirect Bilirubin 1.1 H, Unconjugated Bilirubin 1.1, AST 29, ALT 33, Alkaline Phosphatase 57, Total Protein 5.8 L, Albumin 3.3 L 08/06/21 14:35: NT-Pro-B Natriuret Pep 2370 H 08/06/21 14:46: Specimen Source Right radial, O2 % 6l, ABG pH 7.29 L, ABG pCO2 74.7 H, ABG pO2 77.7 L, ABG HCO3 35.0 H, ABG Total CO2 37.3 H, ABG O2 Saturation 95, ABG Base Excess 8.4 H, Jaylen Test Acceptable Result diagrams: 08/06/21 14:35 08/06/21 14:35 Orders (Tests/Meds): ED MEDICATIONS Generic Name Dose Route Start Last Admin Trade Name Freq PRN Reason Stop Dose Admin Cefepime HCl 2 gm/ Sodium 100 mls @ 100 mls/hr 08/06/21 15:45 08/06/21 15:47 Chloride IV 08/20/21 15:44 100 mls/hr Q12H TRACEY Administration Levofloxacin/Dextrose 750 mg in 150 mls @ 100 mls/hr 08/06/21 15:45 Levofloxacin 750mg/150ml Premix IV 08/20/21 15:44 Q24H TRACEY Vancomycin/PEG/[place]/Lysine/Water 1.5 gm in 300 mls @ 150 mls/hr 08/06/21 15:45 Vancomycin 1.5gm/300ml (Peg) Premix IV 08/06/21 17:44 ONCE ONE Vancomycin/PEG/[place]/Lysine/Water 1.25 gm in 250 mls @ 125 mls/hr 08/06/21 08:00 Vancomycin 1.25gm/250ml (Peg) Premix IV 08/20/21 07:59 Q18H TRACEY Miscellaneous 1 each 08/06/21 15:45 V
[2021-08-06 15:24] LABS: NT Pro Brain Natriuretic Pep. 2370 pg/mL (0-125)
[2021-08-06 15:28] LABS: Troponin I 0.03 ng/ml (0.00-0.034)
--- NOTE | 2021-08-06 15:57 | PC.NURSE ---
called house to admit pt
[2021-08-06 16:01] LABS: Microscopic, Urine URINE MICROSCOPIC (MICROSCOPIC)
[2021-08-06 16:07] LABS: Appearance,Urine CLEAR (Clear); Bilirubin,Urine Negative (Negative); Blood, Urine Negative (Negative); Color,Urine YELLOW (Yellow); Glucose,Urine (UA) 2+ (Negative); Ketones,Urine Negative (Negative); Leukocyte Esterase,Urine Negative (Negative); Nitrate,Urine Negative (Negative); Protein,Urine 1+ (Negative)
[2021-08-06 16:15] LABS: Bacteria,Urine Trace /lpf; WBC,Urine Occasional #/hpf (0-3)
--- NOTE | 2021-08-06 16:58 | PC.NURSE ---
called report to [facility]
--- NOTE | 2021-08-06 17:54 | PC.NURSE ---
pt refused to wear bipap as ordered. pt placed on vapotherm at this time. 35lpm 75% with o2 saturations in low 90's
[2021-08-07] VITALS (11 sets, daily range): BP systolic 106–132; BP diastolic 44–85; PULSE 43–99; RESP 18–22; TEMP 36.3–37.1; O2SAT 86–98; BMI 31.1
[2021-08-07 00:52] LABS: POC Glucose,Bedside 417 (70-110)
[2021-08-07 06:30] LABS: POC Glucose,Bedside 375 (70-110)
--- NOTE | 2021-08-07 07:18 | P.CONPHA_ITS ---
[facility] Pharmacy VTE Monitoring - Patient Demographics Admission date: 08/06/21 Report Date: 08/07/21 Time: 07:18 Allergies/Adverse Reactions: Patient Allergies orange juice Allergy (Mild, Verified 07/07/21 14:00) Rash Height: 1.6 m Weight: 79.878 kg Patient Problems: Current Active Problems Pneumonia (Acute) Elevated brain natriuretic peptide (BNP) level (Acute) Respiratory failure with hypoxia and hypercapnia (Chronic) - VTE Risk Labs: VTE Related Lab Results Hgb 9.9 g/dL (12.2-16.2) L 08/06/21 14:35 Hct 33.0 % (37.0-47.0) L 08/06/21 14:35 Plt Count 189 K/mm3 (142-424) 08/06/21 14:35 BUN 12 mg/dl (7-17) 08/06/21 14:35 Creatinine 0.80 mg/dl (0.52-1.04) 08/06/21 14:35 Estimated Creat Clear 75 mL/min (50-200) 08/06/21 14:35 VTE Score: 11 VTE Risk Level: Moderate Risk - Prophylaxis VTE Prophylaxis Ordered?: Yes Types of VTE Prophylaxis: TEDS Knee High Location of Applied Device: Bilateral Lower Extremeties
--- NOTE | 2021-08-07 07:47 | HMH.PHAINT ---
MEDICATION RECONCILIATION COMPLETED ON PATIENT USING MAR FROM [facility]. -CURT KRISHNAN, KAELAD
--- NOTE | 2021-08-07 08:33 | HMH.HP ---
*Admission Date: 08/06/21 *Chief complaint: soa *History of present illness: 71 yr old female presented to ED via EMS for c/o shortness of breath. per ems, nursing staff states pt was more lethargic than usual and had an increased work of breathing.pt is on 02 at baseline 3L NC. While in route to ed ems reports pt being put on 6L NC in route. She has a history of COPD, congestive heart failure, and respiratory failure. Pt was found to have pneumonia and was placed on vapertherm, pt refuses bipap or intubation. will consult pulm. [facility] History I have reviewed the patient's past medical history: Yes Medical History: Reports:: Anxiety, Congestive Heart Failure, Chronic Obstructive Pulmonary Disease (COPD), Coronary Artery Disease, Diabetes Mellitus Type 2, Gastroesophageal Reflux Disease(GERD), Home Oxygen, Hyperlipidemia, Hypertension, Lung Disease, Peripheral Vascular Disease Denies:: Cancer, Diabetes Mellitus Type 1, Internal Pacemaker, MRSA *Have you ever received a pneumonia vaccine?: Yes *Have you received a flu vaccine this season?: Yes Other Medical History: Reports: Anemia, Arthritis, Sinus Problems, Other Other Surgeries: Yes: No Previous Surgery, Cholecystectomy, Colonoscopy, , Hysterectomy-Total, Other. No: Pacemaker Amputation: No Fractures: No - *Social History Smoking Status: Current every day smoker Tobacco Type: cigarettes # Packs/Day (cigarettes): 1 #Yrs smoked (if former smoker): 50 Alcohol Intake: never Alcohol Intake Frequency:: 3 or more drinks per day Substance Use Type: denies use *Occupational Status:: disabled Housing: [facility] Household Members: other *Travel in the last 8 weeks: None - Psychiatric History Pschychiatric History:: Reports:: Anxiety, Bipolar Disorder Family Hx:: Unable to obtain Review of Systems - Review of Systems Review of systems:: pertinent systems reviewed and negative unless documented below - Constitutional Denies body ache(s), Denies fatigue - Eyes Denies blurry vision - ENT Denies bleeding gums - *Cardiovascular Reports shortness of breath, Denies chest pain at rest - *Respiratory Reports cough, Reports shortness of breath, Reports shortness of breath with activity - *Gastrointestinal Denies abdominal pain - *Genitourinary Denies urinary incontinence - *Musculoskeletal Denies joint pain - Integumentary/Breasts Denies rash - *Neurologic Denies abnormal walking - Psychiatric Denies abnormal sleep pattern - Endocrine Denies excessive sweating - Hematologic/Lymphatic Denies easy bruising - Allergic/Immunologic Denies itchy eyes Meds Home Medications Medication Instructions Recorded Confirmed Type Quetiapine Fumarate [Seroquel 25mg 25 mg PO HS 07/01/18 08/06/21 History tablet] Metformin HCl [Metformin ER 500 mg PO BIDWMEAL 04/13/19 08/07/21 History Osmotic] Spironolactone [Spironolactone 25 mg PO 0800,1700 04/13/19 08/06/21 History 25mg Tablet] Cholecalciferol (Vitamin D3) 600 unit PO BID 04/20/19 08/06/21 History [Vitamin D3] Ondansetron [Zofran 4mg ODT] 4 mg PO Q8HP PRN 04/20/19 08/06/21 History Acetaminophen [Acetaminophen Extra 500 mg PO Q4HP PRN 11/20/19 08/06/21 History Strength] Omeprazole [Omeprazole 20mg 20 mg PO DAILY 11/20/19 08/06/21 History Capsule] Buspirone HCl [Buspar 5mg tablet] 5 mg PO BID 08/15/20 08/06/21 History Loperamide HCl [Imodium 2 mg 2 mg PO Q4HP PRN 08/15/20 08/06/21 History capsule] Ipratropium/Albuterol Sulfate 3 ml IH Q6HP PRN 30 Days #120 08/18/20 08/06/21 Rx [Duoneb 3mL neb] ampul.neb Calcium Carbonate [Calcium Antacid] 400 mg PO QIDP PRN 09/19/20 08/06/21 History Ibuprofen 200 mg PO Q6HP PRN 09/19/20 08/06/21 History Lactulose [Constulose] 30 ml PO DAILYP PRN 09/19/20 08/06/21 History Furosemide [Furosemide 20mg Tab*] 20 mg PO DAILY 02/24/21 08/06/21 History Metoprolol Succinate [Metoprolol 25 mg PO DAILY 02/24/21 08/06/21 History Succinate 25m
--- NOTE | 2021-08-07 09:14 | HMH.PULMCON ---
*Admission Date: 08/06/21 *Reason for consult:: Acute on chronic hypoxic respiratory failure. COPD exacerbation. *History of present illness: Ms. Holland is a [age]-year-old female history of COPD triple inhaler therapy, multiple exacerbations recently discharged from hospital earlier this month presented to the hospital worsening respiratory distress found to be hypoxic hypercarbic respiratory failure and pulmonary was called for further management [facility] History Medical History: Reports:: Anxiety, Congestive Heart Failure, Chronic Obstructive Pulmonary Disease (COPD), Coronary Artery Disease, Diabetes Mellitus Type 2, Gastroesophageal Reflux Disease(GERD), Home Oxygen, Hyperlipidemia, Hypertension, Lung Disease, Peripheral Vascular Disease Denies:: Cancer, Diabetes Mellitus Type 1, Internal Pacemaker, MRSA *Have you ever received a pneumonia vaccine?: Yes *Have you received a flu vaccine this season?: Yes Other Medical History: Reports: Anemia, Arthritis, Sinus Problems, Other Other Surgeries: Yes: No Previous Surgery, Cholecystectomy, Colonoscopy, , Hysterectomy-Total, Other. No: Pacemaker Amputation: No Fractures: No - *Social History Smoking Status: Current every day smoker Tobacco Type: cigarettes # Packs/Day (cigarettes): 1 #Yrs smoked (if former smoker): 50 Alcohol Intake: never Alcohol Intake Frequency:: 3 or more drinks per day Substance Use Type: denies use *Occupational Status:: disabled Housing: halfway Household Members: other *Travel in the last 8 weeks: None - Psychiatric History Pschychiatric History:: Reports:: Anxiety, Bipolar Disorder Family Hx:: Unable to obtain ROS - Cons Reports fatigue - Eyes Reports blurry vision, Denies change in vision - ENT Reports nasal congestion, Denies nosebleed - Card Reports shortness of breath, Reports shortness of breath with activity - Resp Respiratory: Reports shortness of breath, Reports chest congestion, Reports dyspnea, Reports dyspnea on exertion, Denies excessive phlegm production, Denies coughing up blood, Denies pain on inspiration, Reports cough with sputum production - GI Gastrointestingal: Denies: abdominal pain - [place] Musculoskeletal: Reports back pain - Psych Denies thoughts of hurting/killing others, Denies thoughts of hurting/killing yourself Meds Home Medications Medication Instructions Recorded Confirmed Type Quetiapine Fumarate [Seroquel 25mg 25 mg PO HS 07/01/18 08/06/21 History tablet] Metformin HCl [Metformin ER 500 mg PO BIDWMEAL 04/13/19 08/07/21 History Osmotic] Spironolactone [Spironolactone 25 mg PO 0800,1700 04/13/19 08/06/21 History 25mg Tablet] Cholecalciferol (Vitamin D3) 600 unit PO BID 04/20/19 08/06/21 History [Vitamin D3] Ondansetron [Zofran 4mg ODT] 4 mg PO Q8HP PRN 04/20/19 08/06/21 History Acetaminophen [Acetaminophen Extra 500 mg PO Q4HP PRN 11/20/19 08/06/21 History Strength] Omeprazole [Omeprazole 20mg 20 mg PO DAILY 11/20/19 08/06/21 History Capsule] Buspirone HCl [Buspar 5mg tablet] 5 mg PO BID 08/15/20 08/06/21 History Loperamide HCl [Imodium 2 mg 2 mg PO Q4HP PRN 08/15/20 08/06/21 History capsule] Ipratropium/Albuterol Sulfate 3 ml IH Q6HP PRN 30 Days #120 08/18/20 08/06/21 Rx [Duoneb 3mL neb] ampul.neb Calcium Carbonate [Calcium Antacid] 400 mg PO QIDP PRN 09/19/20 08/06/21 History Ibuprofen 200 mg PO Q6HP PRN 09/19/20 08/06/21 History Lactulose [Constulose] 30 ml PO DAILYP PRN 09/19/20 08/06/21 History Furosemide [Furosemide 20mg Tab*] 20 mg PO DAILY 02/24/21 08/06/21 History Metoprolol Succinate [Metoprolol 25 mg PO DAILY 02/24/21 08/06/21 History Succinate 25mg Tablet*] guaiFENesin [Guaifenesin] 200 mg PO Q6HP PRN 02/25/21 08/06/21 History lorazepam 0.5 mg tablet 0.25 mg PO BID #30 tab 05/08/21 08/06/21 Rx Alendronate Sodium [Fosamax 70mg 70 mg PO WEEKLY 07/16/21 08/06/21 History Tablet] Potassium Chloride [Klor-con 20 20 meq PO DAILY
--- NOTE | 2021-08-07 09:31 | PC.NURSE ---
RESP CARE NOTE: Pt SPO2 at 91% on 35L/55% vapotherm. FIO2 decreased to 50% SPO2 decreased to 89%, will continue to wean patient attempting to keep SPO2 at 88% or above.
--- NOTE | 2021-08-07 11:23 | HMH.PHACONS ---
- Pharmacy Consult Date: 08/07/21 Time: 11:23 Referring provider: DR CARNES Reason for Consult:: VANCOMYCIN DOSING CONSULT Allergies and ADEs:: Allergies Allergy/AdvReac Type Severity Reaction Status Date / Time orange juice Allergy Mild Rash Verified 07/07/21 14:00 Home Medications:: Home Medications Medication Instructions Recorded Confirmed Type Quetiapine Fumarate [Seroquel 25mg 25 mg PO HS 07/01/18 08/06/21 History tablet] Metformin HCl [Metformin ER 500 mg PO BIDWMEAL 04/13/19 08/07/21 History Osmotic] Spironolactone [Spironolactone 25 mg PO 0800,1700 04/13/19 08/06/21 History 25mg Tablet] Cholecalciferol (Vitamin D3) 600 unit PO BID 04/20/19 08/06/21 History [Vitamin D3] Ondansetron [Zofran 4mg ODT] 4 mg PO Q8HP PRN 04/20/19 08/06/21 History Acetaminophen [Acetaminophen Extra 500 mg PO Q4HP PRN 11/20/19 08/06/21 History Strength] Omeprazole [Omeprazole 20mg 20 mg PO DAILY 11/20/19 08/06/21 History Capsule] Buspirone HCl [Buspar 5mg tablet] 5 mg PO BID 08/15/20 08/06/21 History Loperamide HCl [Imodium 2 mg 2 mg PO Q4HP PRN 08/15/20 08/06/21 History capsule] Ipratropium/Albuterol Sulfate 3 ml IH Q6HP PRN 30 Days #120 08/18/20 08/06/21 Rx [Duoneb 3mL neb] ampul.neb Calcium Carbonate [Calcium Antacid] 400 mg PO QIDP PRN 09/19/20 08/06/21 History Ibuprofen 200 mg PO Q6HP PRN 09/19/20 08/06/21 History Lactulose [Constulose] 30 ml PO DAILYP PRN 09/19/20 08/06/21 History Furosemide [Furosemide 20mg Tab*] 20 mg PO DAILY 02/24/21 08/06/21 History Metoprolol Succinate [Metoprolol 25 mg PO DAILY 02/24/21 08/06/21 History Succinate 25mg Tablet*] guaiFENesin [Guaifenesin] 200 mg PO Q6HP PRN 02/25/21 08/06/21 History lorazepam 0.5 mg tablet 0.25 mg PO BID #30 tab 05/08/21 08/06/21 Rx Alendronate Sodium [Fosamax 70mg 70 mg PO WEEKLY 07/16/21 08/06/21 History Tablet] Potassium Chloride [Klor-con 20 20 meq PO DAILY 07/16/21 08/06/21 History mEq tablet] Albuterol Sulfate [Proventil Hfa] 1 puff IH QIDP PRN 08/06/21 08/07/21 History Gabapentin [Gabapentin 100mg Cap] 200 mg PO TID 08/06/21 08/06/21 History Fluticasone/Umeclidin/Vilanter 1 puff IH DAILY 08/07/21 08/07/21 History [Trelegy Ellipta 100-62.5-25] Hydrocod/Acet 5/325 mg [Minter 1 tab PO BIDP PRN 08/07/21 08/07/21 History 5/325mg tablet] Height: 1.6 m Weight: 79.8 kg Laboratory Results:: Laboratory Results - last 24 hr 08/06/21 14:35: WBC 9.7, RBC 3.88 L, Hgb 9.9 L, Hct 33.0 L, MCV 85.1, MCH 25.6 L, MCHC 30.1 L, RDW 16.9, Plt Count 189, MPV 8.2, Neut % (Auto) 79.2, Lymph % (Auto) 12.5, [place] % (Auto) 6.5, Eos % (Auto) 1.2, Baso % (Auto) 0.5, Neut # (Auto) 7.7, Lymph # (Auto) 1.2, [place] # (Auto) 0.6, Eos # (Auto) 0.1, Baso # (Auto) 0.1 08/06/21 14:35: Sodium 135 L, Potassium 4.9, Chloride 94 L, Carbon Dioxide 39 H, Anion Gap 6.9, BUN 12, Creatinine 0.80, Estimated Creat Clear 75, Estimated GFR 71, Est GFR ( Amer) 86, Glucose 392 H, Calcium 8.8, Troponin I 0.03 08/06/21 14:35: Lactate 1.2 08/06/21 14:35: Total Bilirubin 1.2, Direct Bilirubin 0.1, Conjugated Bilirubin 0.0, Indirect Bilirubin 1.1 H, Unconjugated Bilirubin 1.1, AST 29, ALT 33, Alkaline Phosphatase 57, Total Protein 5.8 L, Albumin 3.3 L 08/06/21 14:35: NT-Pro-B Natriuret Pep 2370 H 08/06/21 14:44: SARS-CoV-2 (PCR) Not detected, Influenza A Untype (PCR) Not detected, Influenza Type B (PCR) Not detected 08/06/21 14:46: Specimen Source Right radial, O2 % 6l, ABG pH 7.29 L, ABG pCO2 74.7 H, ABG pO2 77.7 L, ABG HCO3 35.0 H, ABG Total CO2 37.3 H, ABG O2 Saturation 95, ABG Base Excess 8.4 H, Jaylen Test Acceptable 08/06/21 15:50: Urine Color Yellow, Urine Appearance Clear, Urine pH 6.0, Ur Specific [place] 1.020, Urine Protein 1+, Urine Glucose (UA) 2+, Urine Ketones Negative, Urine Blood Negative, Urine Nitrate Negative, Urine Bilirubin Negative, Urine Urobilinogen 1.0, Ur Leukocyte Esterase Negative, Urine RBC None, Urine WBC Occasional, Ur Squamous Epi
--- NOTE | 2021-08-07 11:25 | CT_ITS ---
FINAL REPORT TECHNIQUE: Axial imaging of the chest is obtained after the administration of contrast. 3-D MIP reformatted images were also obtained and reviewed per PE protocol. CLINICAL HISTORY: Hypoxia, soa COMPARISON: 02/23/2021 FINDINGS: The pulmonary arteries are well filled. There is no evidence of pulmonary embolus. There is no aortic dissection or intimal flap. The heart size is normal. There is no axillary lymphadenopathy. A mildly enlarged high right paratracheal lymph node measuring 1.5 cm is unchanged. AP window lymphadenopathy is unchanged. There is no hilar lymphadenopathy. There are new small bilateral pleural effusions. No pericardial effusion is seen. There is emphysema. There is posterior bilateral upper lobe scarring. New nodular airspace disease in the medial right upper lobe could be infectious or inflammatory. Neoplasm is not excluded. There is bilateral lower lobe atelectasis. Limited evaluation of the upper abdomen is without acute abnormality. There are multiple old posterior left rib fractures. There is new sclerosis in the left manubrium. A stable midthoracic compression fracture is again seen. IMPRESSION: No evidence of pulmonary embolism or aortic dissection. New nodular airspace opacity in the medial right upper lobe could be infectious, inflammatory or neoplastic. Short-term follow-up chest CT is recommended. New bilateral pleural effusions. Stable lymphadenopathy. New sclerosis in the left manubrium. Correlate with history of primary neoplasm to exclude sclerotic bone metastasis. Otherwise, consider nuclear medicine bone scan. Reviewed, Interpreted and Dictated by Dionne Plaza MD Transcribed by Pippa Ricks Authenticated by Dionne Plaza MD on 08/07/2021 01:19:25 PM [facility]
[2021-08-07 11:33] LABS: POC Glucose,Bedside 363 (70-110)
[2021-08-07 16:11] LABS: POC Glucose,Bedside 382 (70-110)
--- NOTE | 2021-08-07 16:35 | PC.NURSE ---
PT IS RESTING IN BED. ALERT AND ORIENTED X4. PT WAS VERY UPSET THIS MORNING OVER NOT BEING STABLE ENOUGH FOR DISCHARGE. O2 SATURATION 88-93% ON VAPOTHERM AT 35 L AND 60 % FIO2. LUNG SOUNDS DIMINISHED WITH SCATTERED WHEEZES. ABDOMEN FIRM/NON TENDER WITH ACTIVE BOWEL SOUNDS. PT STATES SHE DOES NOT REMEMBER WHEN HER LAST BOWEL MOVEMENT WAS BUT KNOWS SHE HAS NOT HAS A BOWEL MOVEMENT SINCE SHE HAS BEEN IN THE HOSPITAL. VSS. WILL CONTINUE TO MONITOR.
[2021-08-07 22:06] LABS: Glucose,Random 455 mg/dL (74-100)
[2021-08-07 22:15] LABS: POC Glucose,Bedside 503 (70-110)
[2021-08-08] VITALS (12 sets, daily range): BP systolic 110–132; BP diastolic 44–96; PULSE 73–90; RESP 18–22; TEMP 36.6–36.9; O2SAT 90–94; BMI 31.7
[2021-08-08 05:52] LABS: POC Glucose,Bedside 377 (70-110)
[2021-08-08 07:27] LABS: Basophils % 0.1 % (0.1-2.0); Hematocrit 31.2 % (37.0-47.0); Hemoglobin 9.6 g/dL (12.2-16.2); Lymphocytes # 0.4 K/mm3 (0.7-4.5); Lymphocytes % 3.1 % (10-50); Mean Corpuscular HGB Conc 30.9 g/dL (31.8-35.4); Mean Corpuscular Hemoglobin 25.6 pg (27.0-31.2); Mean Corpuscular Volume 82.6 fl (81-99); Mean Platelet Volume 8.6 fl (7.4-10.4); Monocytes # 0.3 K/mm3 (0.1-1.0); Monocytes % 2.5 % (1.7-9.3); Neutrophils # 11.9 K/mm3 (1.8-7.8); Neutrophils % 94.3 % (37.0-80.0); Platelet Count 224 K/mm3 (142-424); Red Blood Count 3.77 M/mm3 (4.20-5.40); Red Cell Distribution Width 17.3 % (11.5-17.5); White Blood Count 12.6 K/mm3 (4.8-10.8)
[2021-08-08 07:37] LABS: Anion Gap 12.9 mEq/L (5-15); Blood Urea Nitrogen 25 mg/dl (7-17); Calcium 8.5 mg/dl (8.4-10.2); Carbon Dioxide 32 mmol/L (22.0-30.0); Chloride 94 mmol/L (98-107); Creatinine Clearance Estimated 67 mL/min (50-200); Estimated Glomerular Filt Rate 71 ml/min (>60); GFR (African American) 86 ML/MIN (>60); Glucose 371 mg/dl (74-100); Potassium 3.9 mmoL/L (3.5-5.1); Sodium 135 mmol/L (136-145)
[2021-08-08 07:40] LABS: MANUAL DIFFERENTIAL MANUAL DIFFERENTIAL (MANUAL DIFF)
--- NOTE | 2021-08-08 08:22 | HMH.ACPN2 ---
Internal Medicine - PN: Subj *Date: 08/08/21 *Time: 09:39 Interval history: 71-year-old female patient sitting up in chair with Vapotherm on, she reports she is ready to be discharged back to assisted. Explained she cannot be discharged with this level of oxygen requirement and explained we are trying to wean as tolerated. Exam Vital signs and Labs for Last 24 Hours: Temp Pulse Resp BP Pulse Ox 98.2 F 83 18 120/52 L 94 L 08/08/21 07:49 08/08/21 07:49 08/08/21 07:49 08/08/21 07:49 08/08/21 07:49 Laboratory Results - last 24 hr 08/07/21 11:21: POC Glucose 363 H* 08/07/21 15:49: POC Glucose 382 H* 08/07/21 21:24: POC Glucose 503 H* 08/07/21 21:39: Random Glucose 455 H* 08/08/21 05:44: POC Glucose 377 H* 08/08/21 06:36: WBC 12.6 H D, RBC 3.77 L, Hgb 9.6 L, Hct 31.2 L, MCV 82.6, MCH 25.6 L, MCHC 30.9 L, RDW 17.3, Plt Count 224, MPV 8.6, Neut % (Auto) 94.3 H, Lymph % (Auto) 3.1 L, [place] % (Auto) 2.5, Eos % (Auto) 0.0 L, Baso % (Auto) 0.1, Neut # (Auto) 11.9 H, Lymph # (Auto) 0.4 L, [place] # (Auto) 0.3, Eos # (Auto) 0.0, Baso # (Auto) 0.0 08/08/21 06:36: Sodium 135 L, Potassium 3.9 D, Chloride 94 L, Carbon Dioxide 32 H, Anion Gap 12.9, BUN 25 H D, Creatinine 0.80, Estimated Creat Clear 67, Estimated GFR 71, Est GFR ( Amer) 86, Glucose 371 H, Calcium 8.5 I & O for Last 24 hours: Intake & Output 08/05/21 08/06/21 08/07/21 08/08/21 23:59 23:59 23:59 23:59 Intake Total 360 / 360 1100 / 1100 300 / 300 Output Total 4290 / 5290 1500 / 1500 Balance 360 / -1040 -3190 / -4190 -1200 / -1200 Weight 175 lb 2 oz 175 lb 14.862 oz 179 lb 3.2 oz - Constitutional mild distress, chronically ill appearing - *Routine HEENT Exam Head: Present: normocephalic Eye: Present: EOMI ENT: Present: mucous membranes moist - *Routine Neck Exam Present: trachea midline. Absent: tracheal deviation - *Routine Respiratory Exam Present: wheezes - *Routine Cardiovascular Exam Present: RRR - *Routine Abdominal Exam Present: soft, normoactive bowel sounds. Absent: tenderness, distended - *Routine Extremities Exam Present: full ROM, pulses intact. Absent: cyanosis, clubbing - *Routine Skin Exam Present: intact, dry. Absent: cyanosis, erythema - *Routine Neurological Exam Present: alert, oriented X3. Absent: motor deficit - Routine Psychiatric Exam Present: normal affect, normal thought process. Absent: tactile hallucinations Assessment and Plan (1) Pneumonia Status: Acute Qualifiers: Pneumonia type: due to unspecified organism Laterality: bilateral Lung location: lower lobe of lung Qualified Code(s): J18.9 - Pneumonia, unspecified organism Category: Medical Code(s): J18.9 - Pneumonia, unspecified organism (2) Respiratory failure with hypoxia and hypercapnia Status: Chronic Qualifiers: Chronicity: acute on chronic Qualified Code(s): J96.21 - Acute and chronic respiratory failure with hypoxia; J96.22 - Acute and chronic respiratory failure with hypercapnia Category: Medical Code(s): J96.91 - Respiratory failure, unspecified with hypoxia; J96.92 - Respiratory failure, unspecified with hypercapnia (3) Abnormal chest xray Status: Acute Category: Medical Code(s): R93.89 - Abnormal findings on diagnostic imaging of other specified body structures (4) Acute and chronic respiratory failure ([id number]) Status: Acute Qualifiers: Respiratory failure complication: unspecified whether with hypoxia or hypercapnia Qualified Code(s): J96.20 - Acute and chronic respiratory failure, unspecified whether with hypoxia or hypercapnia Category: Medical Code(s): J96.20 - Acute and chronic respiratory failure, unspecified whether with hypoxia or hypercapnia (5) Anxiety Status: Chronic Category: Medical Code(s): F41.9 - Anxiety disorder, unspecified (6) Bipolar 1 disorder Status: Chronic Category: Medical Code(s): F31.9 - Bipolar disorder, unspecified
[2021-08-08 08:24] LABS: Lymphocytes % 4 % (10-50); Monocytes % 3 % (2-9); Neutrophils % 92 % (42-76); Platelet Estimate Normal; Total Cells Counted 100
[2021-08-08 08:25] LABS: Hypochromasia 1+; Ovalocytes 1+
--- NOTE | 2021-08-08 11:05 | PC.NURSE ---
Pt unable to produce sputum sample at this time. Specimen cup at bedside.
--- NOTE | 2021-08-08 11:17 | HMH.PULMPN ---
Internal Medicine - PN: Subj *Date: 08/08/21 *Time: 11:17 Interval history: No acute respiratory events overnight. Admits improvement in her symptoms. Denies any new respiratory complaints Exam - Constitutional Constitutional:: Present: no acute distress, comfortable - HENMT Exam HENMT: Present: normocephalic, atraumatic - Eye Exam Eyes:: Present: normal appearance both eyes and related structures - Neck Exam Neck:: Present: normal visual inspection - Respiratory Exam Respiratory:: Present: able to speak in complete sentences, respiratory distress, wheezing - Cardiovascular Exam Cardiac:: Present: S1, S2 - GI Exam GI:: Present: soft - Skin Exam Skin: Present: warm, no rash - Neurological Exam Neurological: Present: alert, awake - Extremities Exam Extremities: Present: no cyanosis, no clubbing, no edema - Psychiatric Exam Psychiatric: Present: agitated Assessment and Plan (1) Pneumonia Status: Acute Qualifiers: Pneumonia type: due to unspecified organism Laterality: bilateral Lung location: lower lobe of lung Qualified Code(s): J18.9 - Pneumonia, unspecified organism Category: Medical Code(s): J18.9 - Pneumonia, unspecified organism (2) Respiratory failure with hypoxia and hypercapnia Status: Chronic Qualifiers: Chronicity: acute on chronic Qualified Code(s): J96.21 - Acute and chronic respiratory failure with hypoxia; J96.22 - Acute and chronic respiratory failure with hypercapnia Category: Medical Code(s): J96.91 - Respiratory failure, unspecified with hypoxia; J96.92 - Respiratory failure, unspecified with hypercapnia (3) Abnormal chest xray Status: Acute Category: Medical Code(s): R93.89 - Abnormal findings on diagnostic imaging of other specified body structures (4) Acute and chronic respiratory failure ([id number]) Status: Acute Qualifiers: Respiratory failure complication: unspecified whether with hypoxia or hypercapnia Qualified Code(s): J96.20 - Acute and chronic respiratory failure, unspecified whether with hypoxia or hypercapnia Category: Medical Code(s): J96.20 - Acute and chronic respiratory failure, unspecified whether with hypoxia or hypercapnia (5) Anxiety Status: Chronic Category: Medical Code(s): F41.9 - Anxiety disorder, unspecified (6) Bipolar 1 disorder Status: Chronic Category: Medical Code(s): F31.9 - Bipolar disorder, unspecified (7) Diabetes mellitus Status: Chronic Qualifiers: Diabetes mellitus type: type 2 Diabetes mellitus watermelon inspector insulin use: unspecified watermelon inspector insulin use status Diabetes mellitus complication status: with other specified complication Qualified Code(s): E11.69 - Type 2 diabetes mellitus with other specified complication Category: Medical Code(s): E11.9 - Type 2 diabetes mellitus without complications (8) Pickwickian syndrome Status: Chronic Category: Medical Code(s): E66.2 - Morbid (severe) obesity with alveolar hypoventilation (9) Pulmonary HTN Status: Chronic Category: Medical Code(s): I27.20 - Pulmonary hypertension, unspecified - Assessment and plan all Dx Assessment and Plan for all problems:: #Acute on chronic hypoxic respiratory failure: #COPD exacerbation: COPD on home triple inhaler therapy. Recently discharged from the hospital for COPD exacerbation on Augmentin. Presents worsening respiratory distress needing high flow nasal cannula. Initiated on cefepime and levofloxacin. No evidence of leukocytosis. Afebrile. BUN/creatinine within normal limits. COVID-19 and flu PCR negative. ABG on admission showed evidence of hypercarbic respiratory failure. Blood cultures on this admission pending. Previous sputum cultures normal respiratory elizabeth. Chest x-ray on this admission, bilateral interstitial opacities predominantly lower lobes no significant change from her most recent chest x-ray. Echocardiogram from August 2020 grade 1
[2021-08-08 12:16] LABS: POC Glucose,Bedside 418 (70-110)
--- NOTE | 2021-08-08 17:36 | PC.NURSE ---
Pt is alert and oriented x4. Some wheezes noted to lungs and diminished t/o. She has been weaned to 4L NC with O2 saturations measuring > 92%. She does desat into the 70's with exertion but quickly rebounds at rest. 1 large BM noted this shift. She has been upset about not being dc'd back the correction today. She is currently agreeable to staying until morning. Glucose has been elevated at 418 and 363. Insulin administered per SS. Code status discussed at length and pt wished to be a DNR at this time. She is currently up to the chair watching tv.
[2021-08-08 20:43] LABS: POC Glucose,Bedside 363 (70-110)
[2021-08-09] VITALS: BP 158/67; PULSE 82; RESP 18; TEMP 36.8; O2SAT 98
[2021-08-09 00:09] VITALS: PULSE 84
[2021-08-09 00:10] VITALS: PULSE 83
[2021-08-09 02:50] LABS: Vancomycin,Trough 11.6 ug/mL (5.0-10.0)
[2021-08-09 04:00] VITALS: BP 145/68; PULSE 90; RESP 18; TEMP 36.6; O2SAT 96
[2021-08-09 04:03] LABS: POC Glucose,Bedside 171 (70-110)
[2021-08-09 05:00] VITALS: BMI 31.9
[2021-08-09 06:01] VITALS: PULSE 86; PULSE 90; O2SAT 90
[2021-08-09 06:22] LABS: POC Glucose,Bedside 195 (70-110)
[2021-08-09 07:05] LABS: Anion Gap 6.6 mEq/L (5-15); Blood Urea Nitrogen 22 mg/dl (7-17); Carbon Dioxide 37 mmol/L (22.0-30.0); Chloride 97 mmol/L (98-107); Creatinine Clearance Estimated 68 mL/min (50-200); Estimated Glomerular Filt Rate 62 ml/min (>60); GFR (African American) 75 ML/MIN (>60); Glucose 179 mg/dl (74-100); Potassium 3.6 mmoL/L (3.5-5.1); Sodium 137 mmol/L (136-145)
--- NOTE | 2021-08-09 07:18 | PC.NURSE ---
Pt slept all night. Stated I ma going home in the morning. Pt excited about getting to leave and go home.
[2021-08-09 07:38] VITALS: BP 106/80; PULSE 105; RESP 18; TEMP 36.6; O2SAT 93
[2021-08-09 08:41] LABS: Vancomycin,Peak 32.1 ug/ml (11-39)
--- NOTE | 2021-08-09 08:46 | HMH.DCSUM ---
General - General Admission date:: 08/06/21 Discharge date: 08/09/21 HPI HPI: 71 yr old female presented to ED via EMS for c/o shortness of breath. per ems, nursing staff states pt was more lethargic than usual and had an increased work of breathing.pt is on 02 at baseline 3L NC. While in route to ed ems reports pt being put on 6L NC in route. She has a history of COPD, congestive heart failure, and respiratory failure. Pt was found to have pneumonia and was placed on vapertherm, pt refuses bipap or intubation. will consult pulm. Hospital Course Hospital Course: Abnormal Lab Results 08/08/21 11:41: POC Glucose 418 H* 08/08/21 15:57: POC Glucose 363 H* 08/08/21 21:29: POC Glucose 171 H 08/09/21 01:50: Vancomycin Trough 11.6 H 08/09/21 06:01: POC Glucose 195 H 08/09/21 06:45: Chloride 97 L, Carbon Dioxide 37 H, BUN 22 H, Glucose 179 H, Calcium 8.0 L Microbiology 08/06/21 14:35 Blood Blood Culture - Preliminary NO GROWTH AFTER 48 HOURS 08/06/21 14:35 Blood Blood Culture - Preliminary NO GROWTH AFTER 48 HOURS 08/07/21 04:50 Anus CRE Surveillance Culture - Final Negative Pulmonary consult: Assessment and plan all Dx Assessment and Plan for all problems:: #Acute on chronic hypoxic respiratory failure: #COPD exacerbation: COPD on home triple inhaler therapy. Recently discharged from the hospital for COPD exacerbation on Augmentin. Presents worsening respiratory distress needing high flow nasal cannula. Initiated on cefepime and levofloxacin. No evidence of leukocytosis. Afebrile. BUN/creatinine within normal limits. COVID-19 and flu PCR negative. ABG on admission showed evidence of hypercarbic respiratory failure. Blood cultures on this admission pending. Previous sputum cultures normal respiratory elizabeth. Chest x-ray on this admission, bilateral interstitial opacities predominantly lower lobes no significant change from her most recent chest x-ray. Echocardiogram from August 2020 grade 1 diastolic dysfunction with increased LA pressures. Interval update: No acute respiratory events overnight. CT PE protocol no evidence of pulmonary embolism. Bilateral lower lobe infiltrates along with effusions, left upper lobe infiltrate along with right upper lobe infiltrate/nodule. We will follow with repeat CT chest without contrast in 3 months as an outpatient basis. Oxygen requirement weaned to 6 L nasal cannula this morning, continue to wean as tolerated. Patient today insisting on to be discharged to assisted and have explained in detail that she is not stable enough to be discharged. We will continue to wean her oxygen requirements. Plan: -DuoNebs every 6 hours scheduled and budesonide every 12 scheduled -Continue NC to maintain O2 saturation of 89% and above. -Wean antibiotics to levofloxacin x 7 days upon discharge -Wean methylprednisolone to prednisone 40mg daily x 7 days Thank you for involving pulmonary in this patient care. We will continue to follow. We will follow repeat CT chest without contrast in 3 months. We will also evaluate the patient for admission for hypercarbic respiratory failure as an outpatient basis. Discharge Plan (1) Pneumonia-DuoNebs every 6 hours scheduled and budesonide every 12 scheduled ,Continue NC to maintain O2 saturation of 89% and above. ,Wean antibiotics to levofloxacin x 7 days upon discharge,Wean methylprednisolone to prednisone 40mg daily x 7 days (2) Respiratory failure with hypoxia and hypercapnia- r/t pneumonia -xray shows:Persistent bilateral interstitial pneumonia. will continue Levaquin and steroids for 7 more days (3) Abnormal chest xray- Persistent bilateral interstitial pneumonia. (4) Acute and chronic respiratory failure ([id number])- R/t pneumonia- pt refuses bipap or to be intubated, was on vapertherm and weaned to o2 nc, she is home o2 dep. pt wants to
--- NOTE | 2021-08-09 09:14 | SW/DCPLANNER ---
Addendum entered by Shanel Benitez 08/09/21 09:24: Patient does not require an additional COVID swab prior to returning. Original Note: This patient currently resides at [facility] of care. Patient will return to [facility] today with [facility] to follow up today once returning.
--- NOTE | 2021-08-09 09:20 | HMH.PHACONS ---
- Pharmacy Consult Date: 08/09/21 Time: 09:20 Referring provider: DR. CARNES Reason for Consult:: VANCOMYCIN LEVELS Allergies and ADEs:: Allergies Allergy/AdvReac Type Severity Reaction Status Date / Time orange juice Allergy Mild Rash Verified 07/07/21 14:00 Home Medications:: Home Medications Medication Instructions Recorded Confirmed Type Quetiapine Fumarate [Seroquel 25mg 25 mg PO HS 07/01/18 08/06/21 History tablet] Metformin HCl [Metformin ER 500 mg PO BIDWMEAL 04/13/19 08/07/21 History Osmotic] Spironolactone [Spironolactone 25 mg PO 0800,1700 04/13/19 08/06/21 History 25mg Tablet] Cholecalciferol (Vitamin D3) 600 unit PO BID 04/20/19 08/06/21 History [Vitamin D3] Ondansetron [Zofran 4mg ODT] 4 mg PO Q8HP PRN 04/20/19 08/06/21 History Acetaminophen [Acetaminophen Extra 500 mg PO Q4HP PRN 11/20/19 08/06/21 History Strength] Omeprazole [Omeprazole 20mg 20 mg PO DAILY 11/20/19 08/06/21 History Capsule] Buspirone HCl [Buspar 5mg tablet] 5 mg PO BID 08/15/20 08/06/21 History Loperamide HCl [Imodium 2 mg 2 mg PO Q4HP PRN 08/15/20 08/06/21 History capsule] Ipratropium/Albuterol Sulfate 3 ml IH Q6HP PRN 30 Days #120 08/18/20 08/06/21 Rx [Duoneb 3mL neb] ampul.neb Calcium Carbonate [Calcium Antacid] 400 mg PO QIDP PRN 09/19/20 08/06/21 History Ibuprofen 200 mg PO Q6HP PRN 09/19/20 08/06/21 History Lactulose [Constulose] 30 ml PO DAILYP PRN 09/19/20 08/06/21 History Furosemide [Furosemide 20mg Tab*] 20 mg PO DAILY 02/24/21 08/06/21 History Metoprolol Succinate [Metoprolol 25 mg PO DAILY 02/24/21 08/06/21 History Succinate 25mg Tablet*] guaiFENesin [Guaifenesin] 200 mg PO Q6HP PRN 02/25/21 08/06/21 History lorazepam 0.5 mg tablet 0.25 mg PO BID #30 tab 05/08/21 08/06/21 Rx Alendronate Sodium [Fosamax 70mg 70 mg PO WEEKLY 07/16/21 08/06/21 History Tablet] Potassium Chloride [Klor-con 20 20 meq PO DAILY 07/16/21 08/06/21 History mEq tablet] Albuterol Sulfate [Proventil Hfa] 1 puff IH QIDP PRN 08/06/21 08/07/21 History Gabapentin [Gabapentin 100mg Cap] 200 mg PO TID 08/06/21 08/06/21 History Fluticasone/Umeclidin/Vilanter 1 puff IH DAILY 08/07/21 08/07/21 History [Trelegy Ellipta 100-62.5-25] Hydrocod/Acet 5/325 mg [[place] 1 tab PO BIDP PRN 08/07/21 08/07/21 History 5/325mg tablet] levoFLOXacin [Levaquin 750mg 750 mg PO Q24H #7 tab 08/09/21 Rx tablet] predniSONE [Deltasone 20mg 40 mg PO DAILY #14 tab 08/09/21 Rx tablet] Height: 1.6 m Weight: 81.841 kg Laboratory Results:: Laboratory Results - last 24 hr 08/08/21 11:41: POC Glucose 418 H* 08/08/21 15:57: POC Glucose 363 H* 08/08/21 21:29: POC Glucose 171 H 08/09/21 01:50: Vancomycin Trough 11.6 H 08/09/21 06:01: POC Glucose 195 H 08/09/21 06:45: Vancomycin Peak 32.1 08/09/21 06:45: Sodium 137, Potassium 3.6, Chloride 97 L, Carbon Dioxide 37 H, Anion Gap 6.6, BUN 22 H, Creatinine 0.90, Estimated Creat Clear 68, Estimated GFR 62, Est GFR ( Amer) 75, Glucose 179 H, Calcium 8.0 L Medical History: Reports:: Anxiety, Congestive Heart Failure, Chronic Obstructive Pulmonary Disease (COPD), Coronary Artery Disease, Diabetes Mellitus Type 2, Gastroesophageal Reflux Disease(GERD), Home Oxygen, Hyperlipidemia, Hypertension, Lung Disease, Peripheral Vascular Disease Denies:: Cancer, Diabetes Mellitus Type 1, Internal Pacemaker, MRSA Assessment and Plan (1) Pneumonia Status: Acute Qualifiers: Pneumonia type: due to unspecified organism Laterality: bilateral Lung location: lower lobe of lung Qualified Code(s): J18.9 - Pneumonia, unspecified organism Category: Medical Code(s): J18.9 - Pneumonia, unspecified organism (2) Respiratory failure with hypoxia and hypercapnia Status: Chronic Qualifiers: Chronicity: acute on chronic Qualified Code(s): J96.21 - Acute and chronic respiratory failure with hypoxia; J96.22 - Acute and chronic respiratory failure wit
--- NOTE | 2021-08-09 09:50 | PC.NURSE ---
report called to [facility]. parker ford dago be coming to pick patient up. they were notified by case management she was ready
--- NOTE | 2021-08-09 10:20 | PC.NURSE ---
mickey picked patient up
--- NOTE | 2021-08-09 10:41 | HMH.PULMPN ---
Internal Medicine - PN: Subj *Date: 08/09/21 *Time: 10:42 Interval history: No acute respiratory events overnight. Patient admits continued improvement in her symptoms. Exam - Constitutional Constitutional:: Present: no acute distress, comfortable - HENMT Exam HENMT: Present: normocephalic - Eye Exam Eyes:: Present: normal appearance both eyes and related structures - Neck Exam Neck:: Present: normal visual inspection - Respiratory Exam Respiratory:: Present: able to speak in complete sentences, no respiratory distress, wheezing - Cardiovascular Exam Cardiac:: Present: S1, S2 - GI Exam GI:: Present: soft, no hepatosplenomegaly - Skin Exam Skin: Present: warm, no rash - Neurological Exam Neurological: Present: alert, awake - Extremities Exam Extremities: Present: no cyanosis, no clubbing, no edema Assessment and Plan (1) Pneumonia Status: Acute Qualifiers: Pneumonia type: due to unspecified organism Laterality: bilateral Lung location: lower lobe of lung Qualified Code(s): J18.9 - Pneumonia, unspecified organism Category: Medical Code(s): J18.9 - Pneumonia, unspecified organism (2) Respiratory failure with hypoxia and hypercapnia Status: Chronic Qualifiers: Chronicity: acute on chronic Qualified Code(s): J96.21 - Acute and chronic respiratory failure with hypoxia; J96.22 - Acute and chronic respiratory failure with hypercapnia Category: Medical Code(s): J96.91 - Respiratory failure, unspecified with hypoxia; J96.92 - Respiratory failure, unspecified with hypercapnia (3) Abnormal chest xray Status: Acute Category: Medical Code(s): R93.89 - Abnormal findings on diagnostic imaging of other specified body structures (4) Acute and chronic respiratory failure ([id number]) Status: Acute Qualifiers: Respiratory failure complication: unspecified whether with hypoxia or hypercapnia Qualified Code(s): J96.20 - Acute and chronic respiratory failure, unspecified whether with hypoxia or hypercapnia Category: Medical Code(s): J96.20 - Acute and chronic respiratory failure, unspecified whether with hypoxia or hypercapnia (5) Anxiety Status: Chronic Category: Medical Code(s): F41.9 - Anxiety disorder, unspecified (6) Bipolar 1 disorder Status: Chronic Category: Medical Code(s): F31.9 - Bipolar disorder, unspecified (7) Diabetes mellitus Status: Chronic Qualifiers: Diabetes mellitus type: type 2 Diabetes mellitus assisted insulin use: unspecified termination clerk insulin use status Diabetes mellitus complication status: with other specified complication Qualified Code(s): E11.69 - Type 2 diabetes mellitus with other specified complication Category: Medical Code(s): E11.9 - Type 2 diabetes mellitus without complications (8) Pickwickian syndrome Status: Chronic Category: Medical Code(s): E66.2 - Morbid (severe) obesity with alveolar hypoventilation (9) Pulmonary HTN Status: Chronic Category: Medical Code(s): I27.20 - Pulmonary hypertension, unspecified - Assessment and plan all Dx Assessment and Plan for all problems:: #Acute on chronic hypoxic respiratory failure: #COPD exacerbation: COPD on home triple inhaler therapy. Recently discharged from the hospital for COPD exacerbation on Augmentin. Presents worsening respiratory distress needing high flow nasal cannula. Initiated on cefepime and levofloxacin. No evidence of leukocytosis. Afebrile. BUN/creatinine within normal limits. COVID-19 and flu PCR negative. ABG on admission showed evidence of hypercarbic respiratory failure. Blood cultures on this admission pending. Previous sputum cultures normal respiratory elizabeth. Chest x-ray on this admission, bilateral interstitial opacities predominantly lower lobes no significant change from her most recent chest x-ray. Echocardiogram from August 2020 grade 1 diastolic dysfunction with increased LA pressures. CT PE pro
--- NOTE | 2021-08-11 11:42 | CARE MANAGER ---
Patient returned to [place] and decided she wanted to receive therapy and therefore declined Hospice at this time. She is doing well per staff. Deny any questions or concerns.
== END 2021-08-09 10:18 | DRG 193 ==
LOC: ER 16:06 → 2ND 17:00
PROVIDERS: Nurse Practitioner Family; Admitting Provider Family Medicine; Emergency Provider Emergency Medicine; PCP Emergency Medicine; Visit Provider Emergency Medicine
DX: J18.9 Pneumonia, unspecified organism (principal); J96.21 Acute and chronic respiratory failure with hypoxia; J96.22 Acute and chronic respiratory failure with hypercapnia; J44.0 Chronic obstructive pulmonary disease with (acute) lower respiratory infection; J44.1 Chronic obstructive pulmonary disease with (acute) exacerbation; E11.51 Type 2 diabetes mellitus with diabetic peripheral angiopathy without gangrene; F17.210 Nicotine dependence, cigarettes, uncomplicated; I25.10 Atherosclerotic heart disease of native coronary artery without angina pectoris; F31.9 Bipolar disorder, unspecified; Z99.81 Dependence on supplemental oxygen; Z79.84 Long term (current) use of oral hypoglycemic drugs; E78.5 Hyperlipidemia, unspecified; K21.9 Gastro-esophageal reflux disease without esophagitis; F41.9 Anxiety disorder, unspecified; I27.20 Pulmonary hypertension, unspecified; I11.0 Hypertensive heart disease with heart failure; I50.9 Heart failure, unspecified
CPT/HCPCS: 36415; 71045; 71275; 80048; 80076; 80202; 81001; 82803; 82947; 82962; 83605; 83880; 84484; 85007; 85025; 87040; 87081; 93005; 94640; 94760; 94761; 96375; 99285; C9803; J1956; Q9967; U0003; U0005

== ENCOUNTER 2021-08-22 16:33 | Observation (INO) | payer MEDICARE, MEDICAID, SELFPAY ==
[2021-08-22] VITALS (9 sets, daily range): BP systolic 111–137; BP diastolic 51–76; PULSE 94–108; RESP 20–25; TEMP 37–37.6; O2SAT 90–97; BMI 30.8; BMI 30.4
--- NOTE | 2021-08-22 16:33 | XR_ITS ---
PROCEDURE INFORMATION: Exam: XR Chest Exam date and time: 08/22/2021 4:36 PM Age: 71 years old Clinical indication: Shortness of breath; Additional info: Hypoxia TECHNIQUE: Imaging protocol: XR of the chest. Views: 1 view. COMPARISON: CR XR CHEST PORTABLE 08/06/2021 2:52 PM FINDINGS: Airway: Central airways are patent. Lungs: Ground-glass and reticular opacifications in the mid to basal lung segments. Pleural spaces: No large pleural effusions. No pneumothorax. Heart/Mediastinum: Moderate cardiomegaly. Vasculature: Calcified aortic knob. Bones/joints: No acute skeletal abnormality or aggressive osseous lesion. IMPRESSION: Main diagnosis would be that of moderate pulmonary edema superimposed on a background of chronic interstitial lung disease. Superimposed infectious pneumonic process should be entertained in the appropriate clinical setting.
--- NOTE | 2021-08-22 16:35 | HMH.EDSOB ---
ED Disposition Clinical Impression: Hypoxia CHF exacerbation Qualifiers: Heart failure type: unspecified Qualified Code(s): I50.9 - Heart failure, unspecified Disposition: Admitted as Observation Condition on Discharge: Good - Critical Care Critical Care Time: No Attestation: On , the high probability of a clinically significant, sudden or life threatening deterioration of the following system(s) required my full and direct attention, intervention and personal management. The time I documented below is in addition to time spent performing reported procedures but includes the following listed in this critical care notation. Medical Decision Making - Medical Records Medical records reviewed: Yes: I reviewed the patient's medical records. - José Miguel Inquiry Pt receiving controlled substance: No Vital Signs: 08/22/21 16:32 08/22/21 17:00 08/22/21 17:31 Temperature 99.6 F Temperature Source Oral Pulse Rate 99 H 94 H Pulse Rate [Right Radial] 108 H Respiratory Rate 20 25 H 20 Blood Pressure 111/54 L 118/58 L Blood Pressure [Right Arm] 114/62 Blood Pressure Mean 73 75 Blood Pressure Mean [Right Arm] 79 Blood Pressure Source [Right Arm] Automatic Cuff Blood Pressure Position [Right Arm] Sitting 02 Sat by Pulse Oximetry 92 L 96 97 Oxygen Delivery Method Aerosol Mask Nasal Cannula Oxygen Flow Rate (LPM) 4 08/22/21 18:00 Temperature Temperature Source Pulse Rate 95 H Pulse Rate [Right Radial] Respiratory Rate 20 Blood Pressure 119/51 L Blood Pressure [Right Arm] Blood Pressure Mean 66 Blood Pressure Mean [Right Arm] Blood Pressure Source [Right Arm] Blood Pressure Position [Right Arm] 02 Sat by Pulse Oximetry 93 L Oxygen Delivery Method Nasal Cannula Oxygen Flow Rate (LPM) 4 - Lab Data Lab Results 08/22/21 16:19: WBC 8.9, RBC 3.73 L, Hgb 9.7 L, Hct 31.5 L, MCV 84.3, MCH 25.9 L, MCHC 30.7 L, RDW 17.9 H, Plt Count 201, MPV 8.2, Neut % (Auto) 79.1, Lymph % (Auto) 14.5, [place] % (Auto) 5.1, Eos % (Auto) 1.0, Baso % (Auto) 0.4, Neut # (Auto) 7.1, Lymph # (Auto) 1.3, [place] # (Auto) 0.5, Eos # (Auto) 0.1, Baso # (Auto) 0.0 08/22/21 16:19: Sodium 134 L, Potassium 4.0, Chloride 93 L, Carbon Dioxide 38 H, Anion Gap 7.0, BUN 11, Creatinine 0.80, Estimated Creat Clear 65, Estimated GFR 71, Est GFR ( Amer) 86, Glucose 328 H, Calcium 8.7, Total Bilirubin 0.5, AST 18, ALT 22, Alkaline Phosphatase 58, Total Protein 5.9 L, Albumin 3.3 L, Globulin 2.6, Albumin/Globulin Ratio 1.3 08/22/21 17:07: NT-Pro-B Natriuret Pep 558 H Result diagrams: 08/22/21 16:19 08/22/21 16:19 Orders (Tests/Meds): ED MEDICATIONS Generic Name Dose Route Start Last Admin Trade Name Freq PRN Reason Stop Dose Admin Sodium Chloride 10 ml 08/22/21 16:55 Sodium Chloride 0.9% 10ml Flush Syringe IV 09/21/21 16:54 NEEDED PRN Maintain IV Site Discontinued Medications Generic Name Dose Route Start Last Admin Trade Name Freq PRN Reason Stop Dose Admin Furosemide 40 mg 08/22/21 17:08 08/22/21 18:08 Furosemide 40mg/4ml Vial IV 08/22/21 17:09 40 mg ONCE ONE Administration ORDERS Category Date Time Status Rapid PCR Covid and Flu A/B Stat Lab 08/22/21 17:50 Ordered ABG [Arterial Blood Gas] Stat RT 08/22/21 17:59 Ordered ECG Request by Dr/Nse Stat Y 08/22/21 16:33 Ordered - ECG Data Tracing #1 I reviewed this ECG and interpreted as documented below: ekg by me sinus 103, low volt, artifactual, no st elev - Physician Consults Time: 18:14 (discussed with dr osman accepts obs here for gary) Resp/SOB HPI - General Stated Complaint: Low oxygen Time Seen by Provider: 08/22/21 16:35 Source of Information: Patient, EMS Limitations: No Limitations - History of Present Illness low o2 sat at [facility] today h/o copd o2 dependent 3l all times recent inpt cap Context: recent illness Severity: moderate Consistency/Duration: constant Relieving factors: oxygen
--- NOTE | 2021-08-22 16:38 | PC.NURSE ---
notified ER MD pt is 87% on 4L per NC, pt denies SOA, no distress noted
--- NOTE | 2021-08-22 16:45 | PC.NURSE ---
rad at for portable cxr
--- NOTE | 2021-08-22 16:55 | ECG_ITS ---
APPROVED REPORT Exam: Resting ECG HR:103 bpm ECG Measurements Heart Rate 103 AXES AR 144 P 61 QRSd 79 QRS 34 QT 310 T 51 QTc 370 Conclusion SINUS TACHYCARDIA LOW QRS VOLTAGE IN PRECORDIAL LEADS [QRS DEFLECTION < 1.0 mV IN CHEST LEADS] Poor r wave progression UNCONFIRMED REPORT Electronically signed by : Saturnino Farmer MD 08/22/2021 18:39:14
--- NOTE | 2021-08-22 17:06 | PC.NURSE ---
obtained [facility] @ [id number]
[2021-08-22 17:22] LABS: Basophils % 0.4 % (0.1-2.0); Eosinophils # 0.1 K/mm3 (0.0-0.4); Hematocrit 31.5 % (37.0-47.0); Hemoglobin 9.7 g/dL (12.2-16.2); Lymphocytes # 1.3 K/mm3 (0.7-4.5); Lymphocytes % 14.5 % (10-50); Mean Corpuscular HGB Conc 30.7 g/dL (31.8-35.4); Mean Corpuscular Hemoglobin 25.9 pg (27.0-31.2); Mean Corpuscular Volume 84.3 fl (81-99); Mean Platelet Volume 8.2 fl (7.4-10.4); Monocytes # 0.5 K/mm3 (0.1-1.0); Monocytes % 5.1 % (1.7-9.3); Neutrophils # 7.1 K/mm3 (1.8-7.8); Neutrophils % 79.1 % (37.0-80.0); Platelet Count 201 K/mm3 (142-424); Red Blood Count 3.73 M/mm3 (4.20-5.40); Red Cell Distribution Width 17.9 % (11.5-17.5); White Blood Count 8.9 K/mm3 (4.8-10.8)
[2021-08-22 17:31] LABS: Alanine Aminotransferase 22 U/L (12-78); Albumin Level 3.3 g/dl (3.5-5.0); Albumin/Globulin Ratio 1.3 (1.1-1.8); Alkaline Phosphatase 58 U/L (38-126); Aspartate Amino Transferase 18 U/L (14-36); Bilirubin,Total 0.5 mg/dl (0.2-1.3); Blood Urea Nitrogen 11 mg/dl (7-17); Calcium 8.7 mg/dl (8.4-10.2); Creatinine Clearance Estimated 65 mL/min (50-200); Estimated Glomerular Filt Rate 71 ml/min (>60); GFR (African American) 86 ML/MIN (>60); Globulin 2.6 g/dL (1.3-3.2); Glucose 328 mg/dl (74-100); Sodium 134 mmol/L (136-145); Total Protein,Serum 5.9 g/dl (6.3-8.2)
[2021-08-22 17:40] LABS: Carbon Dioxide 38 mmol/L (22.0-30.0)
[2021-08-22 17:41] LABS: NT Pro Brain Natriuretic Pep. 558 pg/mL (0-125)
[2021-08-22 17:50] LABS: Chloride 93 mmol/L (98-107)
--- NOTE | 2021-08-22 17:53 | PC.NURSE ---
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 vega
--- NOTE | 2021-08-22 18:06 | PC.NURSE ---
notified RT of abg order
--- NOTE | 2021-08-22 18:12 | PC.NURSE ---
NEVAEH MORALEZ speaking with Dr. Pena
--- NOTE | 2021-08-22 18:18 | PC.NURSE ---
called and ordered cardiac tray for pt
[2021-08-22 18:22] LABS: ABG Base Excess 11.4 mmol/L (-2.4-2.3); ABG HCO3 36.3 mmhg (22.0-26.0); ABG Oxygen Saturation 89 % (90-100); ABG PH 7.39 mmol/L (7.35-7.45); ABG PO2 56.7 mmhg (80-100); ABG TCO2 38.2 mmhg (23-27)
--- NOTE | 2021-08-22 18:22 | PC.NURSE ---
notified ER of abg results that were called by RT
[2021-08-22 18:24] LABS: Coronavirus 19, PCR Not Detected (NotDetected); Influenza A, PCR Not Detected (NotDetected); Influenza B, PCR Not Detected (NotDetected)
[2021-08-22 18:24] LABS: Allen's Test Acceptable; Source Right Radial
--- NOTE | 2021-08-22 18:24 | PC.NURSE ---
pt has a tray for dinner
[2021-08-22 18:26] LABS: ABG PCO2 61.4 mmhg (35.0-45.0)
--- NOTE | 2021-08-22 18:30 | PC.NURSE ---
Imtiaz called and checked on pt
--- NOTE | 2021-08-22 18:43 | PC.NURSE ---
lab states approx 4 mins left on covid swab until results
--- NOTE | 2021-08-22 18:46 | PC.NURSE ---
report called to [facility] alegre on second floor at this time.
--- NOTE | 2021-08-22 19:51 | PC.NURSE ---
patient up to floor via stretcher @ this time.
--- NOTE | 2021-08-22 20:07 | PC.NURSE ---
admitted pt to 215 from ED, will continue to monitor
--- NOTE | 2021-08-22 20:38 | PC.NURSE ---
notified MD Pena that pt's home meds have not been ordered, MD to look at chart and will order as appropriate, will continue to monitor
[2021-08-22 21:07] LABS: POC Glucose,Bedside 283 (70-110)
[2021-08-23] VITALS: BP 115/52; PULSE 92; RESP 24; TEMP 36.8; O2SAT 90
[2021-08-23 04:00] VITALS: BP 136/53; PULSE 97; RESP 22; TEMP 37.1; O2SAT 94
[2021-08-23 05:42] LABS: POC Glucose,Bedside 256 (70-110)
[2021-08-23 06:00] VITALS: PULSE 85; PULSE 89; O2SAT 93
[2021-08-23 06:20] LABS: Basophils # 0.1 K/mm3 (0-0.2); Basophils % 0.8 % (0.1-2.0); Eosinophils # 0.1 K/mm3 (0.0-0.4); Eosinophils % 1.7 % (0.1-12.0); Hematocrit 29.5 % (37.0-47.0); Hemoglobin 9.3 g/dL (12.2-16.2); Lymphocytes # 1.4 K/mm3 (0.7-4.5); Lymphocytes % 21.5 % (10-50); Mean Corpuscular HGB Conc 31.6 g/dL (31.8-35.4); Mean Corpuscular Hemoglobin 25.9 pg (27.0-31.2); Mean Platelet Volume 7.8 fl (7.4-10.4); Monocytes # 0.4 K/mm3 (0.1-1.0); Neutrophils # 4.6 K/mm3 (1.8-7.8); Neutrophils % 69.9 % (37.0-80.0); Platelet Count 171 K/mm3 (142-424); Red Blood Count 3.59 M/mm3 (4.20-5.40); Red Cell Distribution Width 18.3 % (11.5-17.5); White Blood Count 6.5 K/mm3 (4.8-10.8)
--- NOTE | 2021-08-23 06:24 | PC.NURSE ---
pt's oxygen saturations low 80's on 4LNC a few minutes after breathing treatment, increased pt to 5LNC, sat pt up in bed, and changed sat probe- oxygen saturations went up to 85-87%, notified RT Caro, RT stated would come to bedside, RT placing high flow nasal cannula with humidification on pt
[2021-08-23 06:28] LABS: Chloride 93 mmol/L (98-107); Potassium 3.6 mmoL/L (3.5-5.1); Sodium 135 mmol/L (136-145)
[2021-08-23 06:30] LABS: Blood Urea Nitrogen 9 mg/dl (7-17); Creatinine Clearance Estimated 64 mL/min (50-200); Estimated Glomerular Filt Rate 83 ml/min (>60); GFR (African American) 100 ML/MIN (>60)
[2021-08-23 06:31] LABS: Calcium 8.5 mg/dl (8.4-10.2); Glucose 266 mg/dl (74-100)
[2021-08-23 06:58] LABS: Anion Gap 5.6 mEq/L (5-15); Carbon Dioxide 40 mmol/L (22.0-30.0)
--- NOTE | 2021-08-23 07:11 | P.CONPHA_ITS ---
[facility] VTE Monitoring - Patient Demographics Admission date: 08/22/21 Report Date: 08/23/21 Time: 07:12 Allergies/Adverse Reactions: Patient Allergies orange juice Allergy (Mild, Verified 07/07/21 14:00) Rash Height: 1.6 m Weight: 77.882 kg Patient Problems: Current Active Problems CHF exacerbation (Acute) Hypoxia (Acute) - VTE Risk Labs: VTE Related Lab Results Hgb 9.3 g/dL (12.2-16.2) L 08/23/21 05:37 Hct 29.5 % (37.0-47.0) L 08/23/21 05:37 Plt Count 171 K/mm3 (142-424) 08/23/21 05:37 BUN 9 mg/dl (7-17) 08/23/21 05:37 Creatinine 0.70 mg/dl (0.52-1.04) 08/23/21 05:37 Estimated Creat Clear 64 mL/min (50-200) 08/23/21 05:37 - Prophylaxis VTE Prophylaxis Ordered?: Yes Types of VTE Prophylaxis: TEDS Knee High Location of Applied Device: Bilateral Lower Extremeties
[2021-08-23 07:46] VITALS: BP 90/74; PULSE 97; RESP 17; TEMP 37.5; O2SAT 92
--- NOTE | 2021-08-23 07:56 | SW/DCPLANNER ---
Addendum entered by Shaenl Benitez 08/23/21 13:57: The plan for this patient is to discharge back to [facility] today. Original Note: This patient currently resides at [facility] level of care. Carolyn with [facility] did confirm that patient is not established with Hospice services. Hospice was set up at previous discharge (08/09/21) and once patient returned to [facility] she refused services.
[2021-08-23 11:29] VITALS: BP 134/71; PULSE 109; RESP 22; TEMP 37.1; O2SAT 92
[2021-08-23 12:10] LABS: POC Glucose,Bedside 324 (70-110)
--- NOTE | 2021-08-23 13:13 | [facility].HPDC ---
General - General Admission date:: 08/22/21 Discharge date: 08/23/21 *Admission Date: 08/22/21 *Chief complaint: soa *History of present illness: 71 yr old female presents to ED from [place] with c/o SOA and low o2 sat 92%. Pt states at [place] she became very soa and her o2 was not helping with the soa. Pt was given 40 mg lasix iv and had almost 1000ml out while in ed. Pt was admitted for chf and monitoring. [facility] History I have reviewed the patient's past medical history: Yes Medical History: Reports:: Anxiety, Congestive Heart Failure, Chronic Obstructive Pulmonary Disease (COPD), Coronary Artery Disease, Diabetes Mellitus Type 2, Gastroesophageal Reflux Disease(GERD), Home Oxygen, Hyperlipidemia, Hypertension, Lung Disease, Peripheral Vascular Disease Denies:: Cancer, Diabetes Mellitus Type 1, Internal Pacemaker, MRSA *Have you ever received a pneumonia vaccine?: No *Have you received a flu vaccine this season?: Yes Other Medical History: Reports: Anemia, Arthritis, Sinus Problems, Other Other Surgeries: Yes: No Previous Surgery, Cholecystectomy, Colonoscopy, , Hysterectomy-Total, Other. No: Pacemaker Amputation: No Fractures: No - *Social History Smoking Status: Former smoker Tobacco Type: cigarettes # Packs/Day (cigarettes): 1 #Yrs smoked (if former smoker): 50 Alcohol Intake: never Alcohol Intake Frequency:: 3 or more drinks per day Substance Use Type: denies use *Occupational Status:: unemployed Housing: [facility] Household Members: other *Travel in the last 8 weeks: None - Psychiatric History Pschychiatric History:: Reports:: Anxiety, Bipolar Disorder Family Hx:: Unable to obtain Review of Systems - Review of Systems Review of systems:: pertinent systems reviewed and negative unless documented below - Constitutional Denies body ache(s) - Eyes Denies blurry vision - ENT Denies abnormal hearing - *Cardiovascular Reports shortness of breath with activity, Denies chest pain - *Respiratory Reports shortness of breath, Reports shortness of breath with activity - *Gastrointestinal Denies abdominal pain - *Genitourinary Denies urinary incontinence - *Musculoskeletal Denies abnormal walking - Integumentary/Breasts Denies rash - *Neurologic Denies abnormal walking - Psychiatric Denies abnormal sleep pattern - Endocrine Denies excessive sweating - Hematologic/Lymphatic Denies easy bruising - Allergic/Immunologic Denies itchy eyes Exam Vital signs and Labs for Last 24 Hours: Temp Pulse Resp BP Pulse Ox 98.8 F 109 H 22 134/71 92 L 08/23/21 11:29 08/23/21 11:29 08/23/21 11:29 08/23/21 11:29 08/23/21 11:29 Laboratory Results - last 24 hr 08/22/21 16:19: WBC 8.9, RBC 3.73 L, Hgb 9.7 L, Hct 31.5 L, MCV 84.3, MCH 25.9 L, MCHC 30.7 L, RDW 17.9 H, Plt Count 201, MPV 8.2, Neut % (Auto) 79.1, Lymph % (Auto) 14.5, [place] % (Auto) 5.1, Eos % (Auto) 1.0, Baso % (Auto) 0.4, Neut # (Auto) 7.1, Lymph # (Auto) 1.3, [place] # (Auto) 0.5, Eos # (Auto) 0.1, Baso # (Auto) 0.0 08/22/21 16:19: Sodium 134 L, Potassium 4.0, Chloride 93 L, Carbon Dioxide 38 H, Anion Gap 7.0, BUN 11, Creatinine 0.80, Estimated Creat Clear 65, Estimated GFR 71, Est GFR ( Amer) 86, Glucose 328 H, Calcium 8.7, Total Bilirubin 0.5, AST 18, ALT 22, Alkaline Phosphatase 58, Total Protein 5.9 L, Albumin 3.3 L, Globulin 2.6, Albumin/Globulin Ratio 1.3 08/22/21 17:07: NT-Pro-B Natriuret Pep 558 H 08/22/21 17:52: SARS-CoV-2 (PCR) Not detected, Influenza A Untype (PCR) Not detected, Influenza Type B (PCR) Not detected 08/22/21 17:59: Specimen Source Right radial, O2 % 4lpm, ABG pH 7.39, ABG pCO2 61.4 H, ABG pO2 56.7 L, ABG HCO3 36.3 H, ABG Total CO2 38.2 H, ABG O2 Saturation 89 L, ABG Base Excess 11.4 H, Jaylen Test Acceptable 08/22/21 21:00: POC Glucose 283 H 08/23/21 05:35: POC Glucose 256 H 08/23/21 05:37: WBC 6.5 D, RBC 3.59 L, Hgb 9.3 L, Hct 29.5 L, MCV 82.0, MCH 25.9 L, MCHC 31.6 L, RDW 18.3 H, Plt Count 171,
[2021-08-23 13:53] VITALS: PULSE 89; O2SAT 91
--- NOTE | 2021-08-23 14:04 | PC.NURSE ---
REPORT CALLED TO RASHAUN
== END 2021-08-23 14:35 ==
LOC: ER 16:52 → 2ND 18:10
PROVIDERS: Admitting Provider Internal Medicine Adolescent Medicine; Emergency Provider Emergency Medicine; PCP Emergency Medicine; Visit Provider Emergency Medicine
DX: I50.9 Heart failure, unspecified (principal); I11.0 Hypertensive heart disease with heart failure; K21.9 Gastro-esophageal reflux disease without esophagitis; I25.10 Atherosclerotic heart disease of native coronary artery without angina pectoris; E78.5 Hyperlipidemia, unspecified; J44.9 Chronic obstructive pulmonary disease, unspecified; Z99.81 Dependence on supplemental oxygen; E11.9 Type 2 diabetes mellitus without complications; Z79.899 Other long term (current) drug therapy; Z79.84 Long term (current) use of oral hypoglycemic drugs; Z20.822 Contact with and (suspected) exposure to COVID-19
CPT/HCPCS: G0378; 36415; 71045; 80048; 80053; 82803; 82962; 83880; 85025; 87081; 93005; 94640; 94760; 94761; 99285; C9803; U0003; U0005

== ENCOUNTER → 2021-11-24 23:09 | Outpatient (CLI) | payer OTHER, MEDICARE, MEDICAID, SELFPAY ==
[2021-11-24 23:20] LABS: Microscopic, Urine URINE MICROSCOPIC (MICROSCOPIC)
[2021-11-24 23:28] LABS: Appearance,Urine CLOUDY (Clear); Bilirubin,Urine Negative (Negative); Blood, Urine TRACE-I (Negative); Color,Urine YELLOW (Yellow); Glucose,Urine (UA) 1+ (Negative); Ketones,Urine Negative (Negative); Leukocyte Esterase,Urine 2+ (Negative); Nitrate,Urine POSITIVE (Negative); Protein,Urine Negative (Negative); Urobilinogen,Urine 0.2 EU/dl (0.2)
[2021-11-24 23:39] LABS: Bacteria,Urine 4+ /lpf; RBC,Urine Occasional #/hpf (0-3); WBC,Urine TNTC #/hpf (0-3)
== END ==
PROVIDERS: PCP Emergency Medicine; Visit Provider Emergency Medicine
DX: R35.0 Frequency of micturition (principal); R39.15 Urgency of urination; N39.0 Urinary tract infection, site not specified; B96.1 Klebsiella pneumoniae [K. pneumoniae] as the cause of diseases classified elsewhere
CPT/HCPCS: 81001; 87086; 87088; 87186